=== PATIENT | male | born 1970 | race Caucasian/White ===

== ENCOUNTER 2018-04-26 15:38 | Emergency (ER) | payer OTHER, SELFPAY ==
[2018-04-26 15:39] VITALS: BP 146/100; PULSE 102; RESP 20; TEMP 36.6; O2SAT 96
--- NOTE | 2018-04-26 15:45 | DI.RAD_ITS ---
SYMPTOM/DIAGNOSIS: HAND TRAUMA LEFT HAND: There is soft tissue swelling around the distal phalanx of the middle finger. No fracture or foreign body is seen.
--- NOTE | 2018-04-26 16:41 | DI.VRAD_ITS ---
EXAM: XR Left Hand Complete, 3 or more Views EXAM DATE/TIME: 04/26/2018 3:47 PM CLINICAL HISTORY: 48 years old, male; Injury or trauma; Injury history: Snowblower; Initial encounter; Laceration; Hand; Left; Patient HX: Hand trauma; Distal middle finger trauma; Additional info: Snowblower trauma TECHNIQUE: XR Left hand 3 or more views. COMPARISON: No relevant prior studies available. FINDINGS: Bones/joints: Normal.There is no evidence of acute fracture. There is no evidence of acute fracture. Soft tissues: Soft tissue swelling of the long finger distally IMPRESSION: Soft tissue swelling of the long finger distally Dictated and Authenticated by: Rizwana Wetzel MD. Ordering:JAZ ROBLEDO MD
--- NOTE | 2018-04-26 17:33 | W.ED.GENAD ---
Discharge Plan Disposition Patient Disposition: HOME Condition: Stable Discharge Details Chief Complaint: Laceration Clinical Impression: Avulsion of fingertip, Fracture of distal phalanx of finger of right hand Primary Care Provider: Lisa Mayorga V ED Provider: Sarwat Aguirre Home Meds and New Rx's Prescriptions: New oxycodone-acetaminophen [Percocet] 5-325 mg tablet 1 tab PO Q6H PRN (Reason: pain) Qty: 10 RF: 0 cephalexin 500 mg capsule 500 mg PO QID Qty: 10 RF: 0 Continue fluticasone-salmeterol [Advair Diskus] 1 EACH blister with device 1 ea Inhalation PRNRF: 0 gabapentin [Neurontin] 600 MG tablet 600 mg PO TID RF: 0 montelukast [Singulair] 10 MG tablet PRNRF: 0 paroxetine HCl 40 MG tablet 40 mg PO DAILY RF: 0 prednisone 10 MG tablet 10 mg PO DAILY Qty: 16 RF: 0 Discharge Instructions Instructions: Finger Fracture (ED), Finger Amputation (ED) Additional Instructions: Keep wound dressing in place for the next 48 hours and then you may remove it and clean with mild soap and water. You should minimize use of your finger until sutures come out and please use foam metal splint. You may take [id number]-[id number] pain medication or use prescribe narcotic for breakthrough pain. If you notice any signs of infections such as purulent drainage, streaking redness, significant swelling or changing condition return immediately to the emergency department for reassessment Referrals: Dylan Chavez MD [ [facility] STAFF PHYSICIAN] - (Call the office tomorrow morning for arrangement of follow-up appointment preferably in the next 3 days) Discharge Data Discharge Date/Time-TO BE ENTERED AT DEPARTURE: 04/26/18 20:11 Medical Decision Making Patient caught finger in snowblower Auger approximately 20 minutes prior to arrival. Left middle finger distal laceration given concern for crush injury or open fracture radiological imaging was ordered. Prior to radiological imaging patient consented to digital block of the finger and 5 mL's of 2% lidocaine was injected with appropriate anesthetic effect achieved. Patient also given IV morphine given pain and other fingertips as well. Tdap was updated Review of radiological imaging shows distal phalanx fracture that is nondisplaced of the left ring finger but no other acute fractures noted. Of notation is the radiologist interpretation of no fractures but I do disagree as far as the ring finger is concerned. Patient consented to wound closure. Please see procedure note for closure which did require secondary injection of digital block due to return of sensation. Patient tolerated procedure well. Upon exploration of wound to base in bloodless field there was notation of exposed bone but otherwise tendon function was intact. 10 simple interrupted sutures with 4-0 Ethilon were used to approximate the wound edges which were well approximated after the procedure. After anesthesia wore off patient did have appropriate sensation and cap refill distal fingertip. Given depth and severity of wound I do feel that patient needs close follow-up. Patient placed upon follow-up list with orthopedics given severity of avulsion and possible need of revision if the tissue does not fully reattach. Patient placed up on Keflex for 3 days. patient given Percocet otherwise recommend to take [id number]-[id number] pain therapy as needed. Patient continued to have significant amount of discomfort after anesthesia wore off. Patient was given second dose of morphine which did not help so discussed with patient risk versus benefit of bupivacaine digital block. Patient agreed to this and on the radial aspect of the digit unilateral injection of 1 mL of 0.25% bupivacaine was injected. This was able to provide further anesthetic control. After discussion of diagnosis and plan of care patient is no further needs, questions, or concerns and states clear understanding to return to the emergency department for any worsening symptoms. HPI General Mode of arrival: ambulatory. Date/Time Provider Initiated Documentation: 04/26/18 15:44. Limitations to Documentation: no limitations. Information obtained by: patient and RN notes reviewed. History of Present Illness 48 year old M presents to the emergency department with the chief complaint of left middle finger injury- hand caught in snowblower, described as severe, with intensity rated at 10. Quality is described as sharp, and is localized to the left and upper extremity. Patient reports no radiation. Patient started experiencing this minute(s) (20) and it has been constant. No relieving factors improve symptom(s), No exacerbating factors reported . Patient notes no other symptoms.. Patient did receive the following treatments prior to arrival, none Related Data Home Medications Medication Instructions Recorded Confirmed fluticasone-salmeterol [Advair 1 ea INHALATION PRN 08/10/12 08/10/12 Diskus] gabapentin [Neurontin] 600 mg PO TID 08/10/12 08/10/12 montelukast [Singulair] PRN 10/16/12 10/16/12 paroxetine HCl 40 mg PO DAILY 10/16/12 10/16/12 prednisone 10 mg PO DAILY #16 tablet 10/16/12 cephalexin 500 mg PO QID #10 cap 04/26/18 oxycodone-acetaminophen [Percocet] 1 tab PO Q6H PRN #10 tab 04/26/18 Previous Rx's Medication Instructions Recorded prednisone 10 mg PO DAILY #16 tablet 10/16/12 cephalexin 500 mg PO QID #10 cap 04/26/18 oxycodone-acetaminophen [Percocet] 1 tab PO Q6H PRN #10 tab 04/26/18 Allergies Allergy/AdvReac Type Severity Reaction Status Date / Time ibuprofen Allergy Severe Other (See Unverified 04/26/18 18:05 Comment) ibuproxam Allergy Severe Unverified 04/26/18 18:05 General Stated Complaint: Laceration MERLE: 3 Review of Systems Cardiovascular Denies syncope and Denies lightheadedness Musculoskeletal Reports as per HPI and Denies numbness Integumentary/Breasts Reports as per HPI Neurologic Denies syncope and Denies numbness PFSH Social History Smoking/Tobacco Use Status: Current every day Exam Const General: cooperative and no acute distress Orientation: alert, awake and oriented x3 Limitations: mental status not altered Resp Effort & Inspection: normal respiratory effort and able to speak in complete sentences Cardio Rate: regular rate Rhythm: regular rhythm Neuro General: alert, awake, oriented x3, gait normal, tone normal, moves all extremities, normal light touch, pain and propioception and no focal motor deficits Motor: no movement abnormalities noted Sensory Exam: no sensory deficits noted Extrem Left upper extremity: hand Details: normal capillary refill, neuromotor exam normal, neurosensory exam normal, tendon exam normal, tenderness Location: of the 3rd digit Location: at the distal phalanx and of the 4th digit Location: at the distal phalanx, normal ROM of fingers and laceration (Middle finger distal partial avulsion) Course Vital Signs Temperature 36.6 C 04/26/18 15:39 Pulse 102 H 04/26/18 15:39 Respiratory Rate 20 04/26/18 15:39 Blood Pressure 146/100 H 04/26/18 15:39 Pulse Oximetry 96 11/25/18 15:39 Temperature 36.6 C 04/26/18 15:39 Temperature Source Temporal Artery Scan 04/26/18 15:39 Pulse 102 H 04/26/18 15:39 Respiratory Rate 20 04/26/18 15:39 Respiratory Effort 04/26/18 16:10 Blood Pressure 146/100 H 04/26/18 15:39 Blood Pressure Position Sitting 04/26/18 15:39 Pulse Oximetry 96 04/26/18 15:39 Oxygen Delivery Method Room Air 04/26/18 15:39 Oxygen Flow Rate 0 04/26/18 15:39 Pain Level 10 04/26/18 15:39 Procedures Laceration Laceration 1: Site: hand (middle finger) Side (If applicable): left Description: linear Depth: [id number] (exposed bone) Local Anesthetic: Lidocaine 1% (digital block) Amount of anesthesia used (mL): 5 Pre-repair: wound explored, irrigated extensively and deep structures intact Skin layer closed with: nylon Size (cm): 4-0 Number of sutures: 10 Technique: simple, interrupted
--- NOTE | 2018-04-26 17:37 | ED.GENADUL_ITS ---
Discharge Plan Disposition Patient Disposition: HOME Condition: Stable Discharge Details Chief Complaint: Laceration Clinical Impression: Avulsion of fingertip, Fracture of distal phalanx of finger of right hand Primary Care Provider: Lisa Mayorga V ED Provider: Sarwat Aguirre Home Meds and New Rx's Prescriptions: New oxycodone-acetaminophen [Percocet] 5-325 mg tablet 1 tab PO Q6H PRN (Reason: pain) Qty: 10 RF: 0 cephalexin 500 mg capsule 500 mg PO QID Qty: 10 RF: 0 Continue fluticasone-salmeterol [Advair Diskus] 1 EACH blister with device 1 ea Inhalation PRNRF: 0 gabapentin [Neurontin] 600 MG tablet 600 mg PO TID RF: 0 montelukast [Singulair] 10 MG tablet PRNRF: 0 paroxetine HCl 40 MG tablet 40 mg PO DAILY RF: 0 prednisone 10 MG tablet 10 mg PO DAILY Qty: 16 RF: 0 Discharge Instructions Instructions: Finger Fracture (ED), Finger Amputation (ED) Additional Instructions: Keep wound dressing in place for the next 48 hours and then you may remove it and clean with mild soap and water. You should minimize use of your finger until sutures come out and please use foam metal splint. You may take over-the- counter pain medication or use prescribe narcotic for breakthrough pain. If you notice any signs of infections such as purulent drainage, streaking redness , significant swelling or changing condition return immediately to the emergency department for reassessment Referrals: Dylan Chavez MD [ [facility] STAFF PHYSICIAN] - (Call the office tomorrow morning for arrangement of follow-up appointment preferably in the next 3 days) Discharge Data Discharge Date/Time-TO BE ENTERED AT DEPARTURE: 04/26/18 20:11 Medical Decision Making Patient caught finger in snowblower Auger approximately 20 minutes prior to arrival. Left middle finger distal laceration given concern for crush injury or open fracture radiological imaging was ordered. Prior to radiological imaging patient consented to digital block of the finger and 5 mL's of 2% lidocaine was injected with appropriate anesthetic effect achieved. Patient also given IV morphine given pain and other fingertips as well. Tdap was updated Review of radiological imaging shows distal phalanx fracture that is nondisplaced of the left ring finger but no other acute fractures noted. Of notation is the radiologist interpretation of no fractures but I do disagree as far as the ring finger is concerned. Patient consented to wound closure. Please see procedure note for closure which did require secondary injection of digital block due to return of sensation. Patient tolerated procedure well. Upon exploration of wound to base in bloodless field there was notation of exposed bone but otherwise tendon function was intact. 10 simple interrupted sutures with 4-0 Ethilon were used to approximate the wound edges which were well approximated after the procedure. After anesthesia wore off patient did have appropriate sensation and cap refill distal fingertip. Given depth and severity of wound I do feel that patient needs close follow-up. Patient placed upon follow-up list with orthopedics given severity of avulsion and possible need of revision if the tissue does not fully reattach. Patient placed up on Keflex for 3 days. patient given Percocet otherwise recommend to take [id number] pain therapy as needed. Patient continued to have significant amount of discomfort after anesthesia wore off. Patient was given second dose of morphine which did not help so discussed with patient risk versus benefit of bupivacaine digital block. Patient agreed to this and on the radial aspect of the digit unilateral injection of 1 mL of 0.25% bupivacaine was injected. This was able to provide further anesthetic control. After discussion of diagnosis and plan of care patient is no further needs, questions, or concerns and states clear understanding to return to the emergency department for any worsening symptoms. HPI General Mode of arrival: ambulatory . Date/Time Provider Initiated Documentation: 04/26/18 15:44 . Limitations to Documentation: no limitations . Information obtained by: patient and RN notes reviewed . History of Present Illness 48 year old M presents to the emergency department with the chief complaint of left middle finger injury- hand caught in snowblower, described as severe, with intensity rated at 10. Quality is described as sharp, and is localized to the left and upper extremity. Patient reports no radiation. Patient started experiencing this minute(s) (20) and it has been constant. No relieving factors improve symptom(s), No exacerbating factors reported . Patient notes no other symptoms.. Patient did receive the following treatments prior to arrival, none Related Data Home Medications Medication Instructions Recorded Confirmed fluticasone-salmeterol [Advair 1 ea INHALATION PRN 08/10/12 08/10/12 Diskus] gabapentin [Neurontin] 600 mg PO TID 08/10/12 08/10/12 montelukast [Singulair] PRN 10/16/12 10/16/12 paroxetine HCl 40 mg PO DAILY 10/16/12 10/16/12 prednisone 10 mg PO DAILY #16 tablet 10/16/12 cephalexin 500 mg PO QID #10 cap 04/26/18 oxycodone-acetaminophen [Percocet] 1 tab PO Q6H PRN #10 tab 04/26/18 Previous Rx's Medication Instructions Recorded prednisone 10 mg PO DAILY #16 tablet 10/16/12 cephalexin 500 mg PO QID #10 cap 04/26/18 oxycodone-acetaminophen [Percocet] 1 tab PO Q6H PRN #10 tab 04/26/18 Allergies Allergy/AdvReac Type Severity Reaction Status Date / Time ibuprofen Allergy Severe Other (See Unverified 04/26/18 18:05 Comment) ibuproxam Allergy Severe Unverified 04/26/18 18:05 General Stated Complaint: Laceration MERLE: 3 Review of Systems Cardiovascular Denies syncope and Denies lightheadedness Musculoskeletal Reports as per HPI and Denies numbness Integumentary/Breasts Reports as per HPI Neurologic Denies syncope and Denies numbness PFSH Social History Smoking/Tobacco Use Status: Current every day Exam Const General: cooperative and no acute distress Orientation: alert, awake and oriented x3 Limitations: mental status not altered Resp Effort & Inspection: normal respiratory effort and able to speak in complete sentences Cardio Rate: regular rate Rhythm: regular rhythm Neuro General: alert, awake, oriented x3, gait normal, tone normal, moves all extremities, normal light touch, pain and propioception and no focal motor deficits Motor: no movement abnormalities noted Sensory Exam: no sensory deficits noted Extrem Left upper extremity: hand Details: normal capillary refill, neuromotor exam normal, neurosensory exam normal, tendon exam normal, tenderness Location: of the 3rd digit Location: at the distal phalanx and of the 4th digit Location: at the distal phalanx, normal ROM of fingers and laceration (Middle finger distal partial avulsion) Course Vital Signs Temperature 36.6 C 04/26/18 15:39 Pulse 102 H 04/26/18 15:39 Respiratory Rate 20 04/26/18 15:39 Blood Pressure 146/100 H 04/26/18 15:39 Pulse Oximetry 96 11/25/18 15:39 Temperature 36.6 C 04/26/18 15:39 Temperature Source Temporal Artery Scan 04/26/18 15:39 Pulse 102 H 04/26/18 15:39 Respiratory Rate 20 04/26/18 15:39 Respiratory Effort 04/26/18 16:10 Blood Pressure 146/100 H 04/26/18 15:39 Blood Pressure Position Sitting 04/26/18 15:39 Pulse Oximetry 96 04/26/18 15:39 Oxygen Delivery Method Room Air 04/26/18 15:39 Oxygen Flow Rate 0 04/26/18 15:39 Pain Level 10 04/26/18 15:39 Procedures Laceration Laceration 1: Site: hand (middle finger) Side (If applicable): left Description: linear Depth: [id number]-[id number]-mdurean (exposed bone) Local Anesthetic: Lidocaine 1% (digital block) Amount of anesthesia used (mL): 5 Pre-repair: wound explored, irrigated extensively and deep structures intact Skin layer closed with: nylon Size (cm): 4-0 Number of sutures: 10 Technique: simple, interrupted
[2018-04-26 17:49] VITALS: BP 152/91; PULSE 81; RESP 16; O2SAT 100
[2018-04-26] MEDS: MORPHine 10 MG/ML VIAL 6 MG IM (17:58)
[2018-04-26] MEDS: Cephalexin 500 MG CAP 1500 MG PO (18:01)
[2018-04-26] MEDS: oxyCODONE 5 mg/Acetaminophen 325 mg TAB 3 TAB PO (18:02)
--- NOTE | 2018-04-26 18:07 | NUR.NOTE ---
Pt. given IM Morphine for significant pain, plan to monitor prior to discharge.
[2018-04-26] MEDS: HYDROmorphone 2 MG/ML VIAL 0.5 MG IVP (18:40)
--- NOTE | 2018-04-26 19:24 | NUR.NOTE ---
Late entry - pain is not controlled with 6mg IM morphine, pt. continues to cry and shake. IV re-placed as ordered, initial IV had been d/rahul by this RN. .5 mg IV dilaudid administered as ordered. Pt. is still trembling, NIA Aguirre aware and is re-evaluating.
[2018-04-26 20:13] VITALS: BP 152/91; PULSE 81; RESP 16; TEMP 36.6; O2SAT 100
== END 2018-04-26 20:11 | disposition home or self-care (01) ==
PROVIDERS: Emergency Provider Nurse Practitioner Family; PCP Family Medicine
DX: S62.665A Nondisplaced fracture of distal phalanx of left ring finger, initial encounter for closed fracture (principal); S61.213A Laceration without foreign body of left middle finger without damage to nail, initial encounter; W31.89XA Contact with other specified machinery, initial encounter
CPT/HCPCS: 12001; 26750; 90471; 96372; 96374; 96375; 73130; J2270

== ENCOUNTER → 2018-04-30 09:14 | Outpatient (BNVA) | payer OTHER, SELFPAY | PROVIDERS: PCP Family Medicine; Referring Provider Family Medicine; Visit Provider Orthopaedic Surgery | DX: S61.213A Laceration without foreign body of left middle finger without damage to nail, initial encounter (principal); S62.665B Nondisplaced fracture of distal phalanx of left ring finger, initial encounter for open fracture; W29.3XXA Contact with powered garden and outdoor hand tools and machinery, initial encounter | CPT/HCPCS: 99201; 99214 ==

== ENCOUNTER → 2018-05-12 08:49 | Outpatient (BNVA) | payer OTHER, SELFPAY | PROVIDERS: PCP Family Medicine; Referring Provider Family Medicine; Visit Provider Orthopaedic Surgery | DX: S62.639D Displaced fracture of distal phalanx of unspecified finger, subsequent encounter for fracture with routine healing (principal); S61.219D Laceration without foreign body of unspecified finger without damage to nail, subsequent encounter; W29.3XXD Contact with powered garden and outdoor hand tools and machinery, subsequent encounter | CPT/HCPCS: 99212; 99213 ==

== ENCOUNTER → 2018-05-19 08:59 | Outpatient (BNVA) | payer OTHER, SELFPAY | PROVIDERS: PCP Family Medicine; Referring Provider Family Medicine; Visit Provider Orthopaedic Surgery | DX: S61.213D Laceration without foreign body of left middle finger without damage to nail, subsequent encounter (principal); W29.3XXD Contact with powered garden and outdoor hand tools and machinery, subsequent encounter | CPT/HCPCS: 99211; 99213 ==

== ENCOUNTER 2018-08-06 18:11 | Outpatient (REF) | payer OTHER, SELFPAY | END 2018-08-06 18:31 | LOC: NCHCN 18:11 | PROVIDERS: PCP Family Medicine; Visit Provider Nurse Practitioner Family | DX: L08.9 Local infection of the skin and subcutaneous tissue, unspecified (principal); S81.801A Unspecified open wound, right lower leg, initial encounter | CPT/HCPCS: 87077; 87070; 87186; 87205 ==

== ENCOUNTER → 2022-05-07 07:29 | Outpatient (BNVA) | payer MEDICARE, SELFPAY | PROVIDERS: PCP Family Medicine; Referring Provider Family Medicine; Visit Provider Surgery | DX: K40.90 Unilateral inguinal hernia, without obstruction or gangrene, not specified as recurrent (principal); Z98.890 Other specified postprocedural states | CPT/HCPCS: 99203 ==

== ENCOUNTER 2022-06-07 07:20 | Day surgery (SDC) | payer MEDICARE, SELFPAY ==
--- NOTE | 2022-06-06 20:22 | PDOC.DSDIS_ITS ---
Date of service: 06/07/22 Time of Service: 11:52 Discharge Plan Disposition Patient Disposition: Home Condition: Good Discharge Details Reason For Visit: Bilateral inguinal hernia repair Attending Provider: Mauricio Langford Primary Care Provider: Lisa Mayorga V Home Meds and New Rx's Prescriptions: New oxycodone 5 mg tablet 5 mg PO Q8H PRN (Reason: pain) Qty: 12 0RF Rx Instructions: Take 1 tablet by mouth up to every 8 hours if needed for severe pain. Do not drive while taking this medication. Be careful as this medication can be ad dictive. Continued potassium chloride 20 mEq tablet extended release 20 meq PO DAILY magnesium carb,citrate,oxide 300 mg magnesium tablet 300 mg PO DAILY vitamin B complex Capsule 1 cap PO DAILY triamcinolone acetonide 0.5 % cream 1 applic topical BID omega 0-cyg-vdf-fish oil [Fish Oil] 300-1,000 mg capsule 1 cap PO DAILY coenzyme Q10 [Co Q-10] 100 mg capsule 100 mg PO DAILY cholecalciferol (vitamin D3) 25 mcg (1,000 unit) capsule 25 mcg PO DAILY fluticasone propion-salmeterol [Advair Diskus] 1 EACH blister with device 1 ea Inhalation DAILY albuterol sulfate 90 mcg/actuation HFA aerosol inhaler 2 inh INHALATION TID Label Comments: INHALE 2 PUFFS BY MOUTH EVERY 4 HOURS NEEDED Discharge Instructions Instructions: Inguinal Hernia Repair (GEN) Additional Instructions: 1. Resume all of your medications. 2. Okay to use tylenol and ibuprofen over the counter as needed. Use oxycodone as needed for severe pain. 3. Okay to use ice paks or heating pads over the surgical sites for your comfort. 4. Leave bandage in place for 24 hours, then remove. 5. Shower with warm soapy water. Pat dry. Use a bandaid if needed to protect your clothing. 6. No soaking or tub baths until I see you in the office. 7. No heavy lifting until I see you in the office. You should be up and walking around every day. 8. Call the office (or go directly to the emergency room after hours) if you notice any of the following: Develop chills (warm to touch), or if you have a thermometer and your temperature is above 101 Difficulty breathing or difficultly swallowing Persistent vomiting Any bleeding ? exceeding one tablespoon 9. Call your physician if the site where your intravenous was started becomes red, swollen, painful, and warm to touch. Referrals: Mauricio Langford MD [ [facility] STAFF PHYSICIAN] - Activity:: no heavy lifting Remove Dressings/Wound Care:: 24 hours Shower/Bathe:: 24 hours Diet:: As Tolerated Discharge Orders Discharge Orders: Discharge Order (Routine); Ordered 06/06/22 Ordered By: Mauricio Langford DS: Diagnosis Discharge Diagnosis (1) Bilateral inguinal hernia: Status: Acute Asessment and Plan: We were able to fix both hernias today with permanent implantable meshes. The o peration went very nicely. Please follow the instructions attached here, and we look forward to seeing you in the office for routine follow-up.
--- NOTE | 2022-06-06 20:25 | ROE_ITS ---
Date of service: 06/07/22 Time of Service: 11:56 Operative Note Operative Note DATE OF PROCEDURE: 06/07/22 PRE-OP DIAGNOSIS: Bilateral inguinal hernias POST-OP DIAGNOSIS: same PROCEDURE: Bilateral inguinal hernia repair with mesh plug and patch SURGEON: Mauricio Langford VICE PRESIDENT OF CONSULTING SERVICES: Ilana Mock ANESTHESIA TYPE: Local By Surgeon, General LMA/ETT and Other (Bilateral tap blocks) Refer to Anesthesia Record ESTIMATED BLOOD LOSS: 30 COMPLICATIONS: None Patient was transported to: PACU Patient's condition: stable Implants: Bard mesh patch and plugs Indications: Mic is a 52-year-old male with an increasingly symptomatic left-sided inguinal hernia. On physical exam, he has a right-sided inguinal hernia as well. Findings: Right-sided direct and indirect inguinal hernia, left-sided indirect inguinal hernia Procedure Description: After induction of general anesthesia, the anesthesia specialist performed bilateral ultrasound-guided tap blocks. The surgical site was then prepped and draped in the usual fashion. I began by making an oblique incision over the right inguinal region. I dissected down through the skin to the deep fascia. Next, I incised the fascia along the length of the inguinal canal to the external ring. I then carefully identified the ilioinguinal nerve and dissected off the cord structures. Once this was complete, I bluntly dissected the shelving edge of the inguinal ligament down towards the pubic tubercle. Here, I encircled all cord structures with a Bayard drain. Next, I began dissecting the specific cord structures. Great care was taken to spare the vas deferens and the blood supply to the testicle. Next, I isolated the hernia sac from the other inguinal structures. I reduced it back to its normal anatomic position. Additionally, there was a modest direct inguinal hernia as well. This was easily reducible. I then used a large mesh plug to obliterate the defect at the internal ring. I fixed in place with interrupted Prolene stitches. Next, I bu ttressed the posterior floor of the inguinal canal with a large mesh patch. I started by fixing it to the pubic tubercle. Next, I used Prolene sutures to affix it to the shelving edge of the inguinal ligament and the conjoined tendon. Laterally I tacked it to the transversalis fascia and reconstructed an internal ring without any strain on the cord structures. Once this was complete, I irrigated the surgical field. It appeared hemostatic. I then closed the anterior portion of the fascia to reconstruct the front wall of the inguinal canal. I did this with interrupted Vicryl stitches. Once again, I irrigated the surgical field and inspected for hemostasis. Finally, I approximated the superficial fascia and the deep layers of the skin with absorbable suture. Skin was closed with running Monocryl suture. The right side was then covered, and I turned my attention to the left groin. I made an oblique incision over the left groin region. I dissected down through the skin to the deep fascia. Next, I incised the fascia along the length of the inguinal canal to the external ring. I then carefully identified the ilioinguinal nerve and it from the cord structures. Once this was complete, similar to the right side, I bluntly dissected the shelving edge of the inguinal ligament down towards the pubic tubercle. Here, I encircled all cord structures with a Bayard drain. Next, I began dissecting the specific cord structures. Great care was taken to spare the vas deferens and the blood supply to the testicle. Next, I isolated the hernia sac from the other inguinal structures. I reduced it back to its normal anatomic position. I then used a large mesh plug to plug the internal ring. I fixed in place with interrupted Prolene stitches. There was a small amount of bleeding from the external oblique muscle laterally, this was easily controlled with an interrupted Vicryl suture. Next, I buttressed the posterior floor of the inguinal canal with a large mesh patch. I started by fixing it to the pubic tubercle. Similar to the right side, I used Prolene sutures to affix it to the shelving edge of the inguinal ligament and the conjoined tendon. Laterally I tacked it to the transversalis fascia and reconstructed an internal ring without any strain on the cord structures. Once this was complete, I irrigated the surgical field. It appeared hemostatic. I then closed the anterior portion of the fascia to reconstruct the front wall of the inguinal canal. I did this with interrupted Vicryl stitches. Once again, I irrigated the surgical field and inspected for hemostasis. Finally, I approximated the superficial fascia and the deep layers of the skin with absorbable suture. Skin was closed with running subcuticular stitches. Bandages were applied to both sides, and the patient was awakened and transferred to the recovery unit.
[2022-06-07] VITALS (15 sets, daily range): BP systolic 113–169; BP diastolic 73–110; PULSE 55–78; RESP 9–19; TEMP 36.5–36.6; O2SAT 92–100; BMI 27.8
[2022-06-07] MEDS: Lactated Ringers 1,000 ML 80 ML IV (08:08)
[2022-06-07] MEDS: Acetaminophen 500 MG TAB 1000 MG PO (08:31)
[2022-06-07] MEDS: Gabapentin 300 MG CAP 600 MG PO (08:31)
--- NOTE | 2022-06-07 09:24 | HPE_ITS ---
Assessment and Plan Assessment and plan (1) Bilateral inguinal hernia: Status: Acute Assessment and plan: Bilateral open inguinal hernia repairs today. History of Present Illness History of Present Illness Chief Complaint: Left groin pain Narrative: Mic is a 52-year-old male with a complicated medical history most significant for ulcerative colitis requiring colectomy with end ileostomy. Recently, he experienced some discomfort in his left lower quadrant. He was seen by his primary care physician and found to have a left-sided inguinal hernia. On exam, he is found to actually have bilateral inguinal hernias. [facility] All Active Problems (Updated 06/07/22 @ 09:26 by Mauricio Langford MD) Bilateral inguinal hernia (Acute) Laceration of finger of left hand (Acute) Laceration volar fingertip left middle finger Date of injury: 04/26/18 Fracture of distal phalanx of finger of left hand (Acute) Asymptomatic fracture of the distal phalanx of the left ring finger Date of injury: 04/26/[address] (Acute) Psoriasis (Chronic) Depression with anxiety (Acute) Hypertension (Chronic) Chronic recurrent pilonidal cyst (Acute) Ulcerative colitis (Chronic) Asthma, moderate persistent (Acute) Degenerative joint disease (DJD) of lumbar spine (Acute) Bronchitis, obstructive, chronic (Acute) Environmental allergies (Acute) Hypogonadism, male (Acute) Bilateral inguinal hernia (Acute) Medical History A-fib Former smoker Hyperlipidemia PTSD (post-traumatic stress disorder) SVT (supraventricular tachycardia) Ulcerative proctitis Surgical History H/O cardiac radiofrequency ablation H/O hernia repair (~01/2020) [facility] around ileostomy H/O total colectomy History of back surgery 2 rods, 4 screws, L4-5 2006 [place], [place] Social History Smoking/Tobacco Use Status: Former Tobacco Use Quit Date: 06/02/06 Smoking risk assessment performed?: Yes Alcohol Intake: former Drug use: Never Substance use type: does not use Do you feel safe at home: Yes Do you feel safe in your relationship?: Yes Additional Social history: unable to assess privately-06/07/22 Meds Allergies and Home Medications Allergies Allergy/AdvReac Type Severity Reaction Status Date / Time bupropion [From Wellbutrin] Allergy Severe suicidal Verified 06/07/22 08:22 thoughts ibuprofen Allergy Severe tongue Verified 06/07/22 08:22 swelling ibuproxam Allergy Severe Verified 06/07/22 08:22 zolpidem [From Ambien] Allergy Severe sleep Verified 06/07/22 08:22 walk/drive atenolol Allergy Unknown Verified 06/07/22 08:22 Home Medications Medication Instructions Recorded Confirmed Type fluticasone 250 mcg-salmeterol 50 1 ea inhalation DAILY 08/10/12 06/07/22 History mcg/dose blistr powdr for inhalation (Advair Diskus) cholecalciferol (vitamin D3) 25 25 mcg PO DAILY 04/29/22 06/07/22 History mcg (1,000 unit) capsule coenzyme Q10 100 mg capsule (Co 100 mg PO DAILY 04/29/22 06/07/22 History Q-10) magnesium carb,citrate,oxide 300 mg PO DAILY 04/29/22 06/07/22 History omega 9-jui-wjm-fish oil 300 1 cap PO DAILY 04/29/22 06/07/22 History mg-1,000 mg capsule (Fish Oil) triamcinolone acetonide 0.5 % 1 applic topical BID 04/29/22 06/07/22 History topical cream vitamin B complex 1 cap PO DAILY 04/29/22 06/07/22 History potassium chloride 20 mEq 20 meq PO DAILY 05/07/22 06/07/22 History tablet,extended release albuterol sulfate 90 mcg/actuation 2 inh inhalation TID 06/05/22 06/07/22 History aerosol inhaler Exam Const General: cooperative, healthy appearing and comfortable Orientation: awake and oriented x3 Eyes General: appearance normal, both eyes and all related structures Conjunctivae: conjunctivae normal Sclera: sclerae normal Resp Effort & Inspection: normal respiratory effort and able to speak in complete sentences Cardio Jugular venous pressure: no JVD Rate: regular rate Rhythm: regular rhythm Heart Sounds: S1 normal and S2 normal GI Inspection: non-distended Palpation: soft, no guarding, hernia (Bilateral inguinal reducible) and nontender Auscultation: normal bowel sounds Skin General skin exam: normal turgor Neuro General: patient alert, patient awake and patient oriented x3 Cognition: normal cognition Extrem Right lower extremity: no edema Left lower extremity: no edema Results Last Vital Signs Temp 97.9 F 06/07/22 07:26 Pulse 64 06/07/22 07:26 Resp 18 06/07/22 07:26 BP 123/95 H 06/07/22 07:26 Pulse Ox 96 06/07/22 07:26
--- NOTE | 2022-06-07 09:46 | W.ANESPRE ---
General Info Date of Service Date Performed: 06/07/22 Height: 5 ft 8 in Weight: 83 kg Body Mass Index (BMI): 27.8 Surgical Procedure: Operation Date: 06/07/22 09:25 Proposed Procedure Side Surgeon p Herniorrhaphy Inguinal w/Mesh Bilateral Mauricio Langford MD Meds Allergies and Home Medications Allergies Allergy/AdvReac Type Severity Reaction Status Date / Time bupropion [From Wellbutrin] Allergy Severe suicidal Verified 06/07/22 08:22 thoughts ibuprofen Allergy Severe tongue Verified 06/07/22 08:22 swelling ibuproxam Allergy Severe Verified 06/07/22 08:22 zolpidem [From Ambien] Allergy Severe sleep Verified 06/07/22 08:22 walk/drive atenolol Allergy Unknown Verified 06/07/22 08:22 Home Medication Medication Instructions Recorded fluticasone 250 mcg-salmeterol 50 1 ea inhalation DAILY 08/10/12 mcg/dose blistr powdr for inhalation (Advair Diskus) cholecalciferol (vitamin D3) 25 25 mcg PO DAILY 04/29/22 mcg (1,000 unit) capsule coenzyme Q10 100 mg capsule (Co 100 mg PO DAILY 04/29/22 Q-10) magnesium carb,citrate,oxide 300 mg PO DAILY 04/29/22 omega 6-fhg-wlh-fish oil 300 1 cap PO DAILY 04/29/22 mg-1,000 mg capsule (Fish Oil) triamcinolone acetonide 0.5 % 1 applic topical BID 04/29/22 topical cream vitamin B complex 1 cap PO DAILY 04/29/22 potassium chloride 20 mEq 20 meq PO DAILY 05/07/22 tablet,extended release albuterol sulfate 90 mcg/actuation 2 inh inhalation TID 06/05/22 aerosol inhaler Current Visit Medications: Current Medications Generic Name Dose Route Start Last Admin Trade Name Freq PRN Reason Stop Dose Admin Acetaminophen 1,000 mg 06/07/22 06:00 06/07/22 08:31 Acetaminophen 500 Mg Tab PO 07/06/22 23:59 1,000 mg PREOP CHRISTIANO Administration Gabapentin 600 mg 06/07/22 06:00 06/07/22 08:31 Gabapentin 300 Mg Cap PO 07/06/22 23:59 600 mg PREOP CHRISTIANO Administration Hydromorphone HCl 0.5 mg 06/06/22 20:28 Hydromorphone 2 Mg/Ml Syr IVP Q1H PRN PRN Ringer's Solution 1,000 mls @ 80 mls/hr 06/07/22 06:00 06/07/22 08:08 IV 07/06/22 23:59 80 mls/hr INFUSION CHRISTIANO Administration Cefazolin Sodium/Dextrose 2 gm in 50 mls @ 100 mls/hr 06/07/22 06:00 Ancef Duplex IVPB 07/06/22 23:59 PREOP CHRISTIANO IV Miscellaneous Supplies 1 each 06/07/22 06:00 Iv Access IV 07/06/22 23:59 DIRECTED CHRISTIANO Sodium Chloride 0 ml 06/07/22 06:00 Normal Saline Flush 10 Ml Syr IV 07/06/22 23:59 PRN PRN Sodium Chloride 0 ml 06/07/22 06:00 Normal Saline 10 Ml Vial IJ 07/06/22 23:59 DIRECTED PRN Sterile Water 0 ml 06/07/22 06:00 Water,Injection,Sterile 10 Ml Vial IJ 07/06/22 23:59 DIRECTED PRN Tramadol HCl 100 mg 06/06/22 20:28 Tramadol 50 Mg Tab PO Q6H PRN PRN Pain PFSH Active Problems Active Problems: Problem Status Onset Code Bilateral inguinal hernia K40.20 Laceration of finger of left hand S61.219A Fracture of distal phalanx of finger of left hand S62.639A Ileostomy in place Z93.2 Psoriasis L40.9 Depression with anxiety F41.8 Hypertension I10 Chronic recurrent pilonidal cyst L05.91 Ulcerative colitis K51.90 Asthma, moderate persistent J45.40 Degenerative joint disease (DJD) of lumbar spine M47.816 Bronchitis, obstructive, chronic J44.9 Environmental allergies Z91.09 Hypogonadism, male E29.1 Bilateral inguinal hernia K40.20 Medical History Medical History A-fib Former smoker Hyperlipidemia PTSD (post-traumatic stress disorder) SVT (supraventricular tachycardia) Ulcerative proctitis Surgical History Surgical History H/O cardiac radiofrequency ablation H/O hernia repair (~01/2020) [facility] around ileostomy H/O total colectomy History of back surgery 2 rods, 4 screws, L4-5 2006 [place], [place] Tobacco Smoking/Tobacco Use Status: Former Tobacco Use Alcohol Alcohol Intake: former Substance Use Substance use: Never Substance use type: does not use Vital Signs and Lab Results Vital Signs Most Recent Vital Signs in EMR: Most Recent Vital Signs Temp Pulse Resp BP Pulse Ox 36.6 C 64 18 123/95 H 96 06/07/22 07:26 06/07/22 07:26 06/07/22 07:26 06/07/22 07:26 06/07/22 07:26 Lab Results Blood Type / Crossmatch: No Data to Display Complete Blood Count: No Data to Display Complete Metabolic Panel: No Data to Display Liver Function Panel: No Data to Display Coagulation Panel: No Data to Display Cardiac Panel: No Data to Display Arterial Blood Gas: No Data to Display Venous Blood Gas: No Data to Display Pancreas Panel: No Data to Display Thyroid Panel: No Data to Display Infectious Disease: No Data to Display Blood Cultures: No Data to Display Toxicology Panel: No Data to Display Anesthesia Assessment and Plan Anesthesia History Personal History: No History of Anesthesia Complications Family History: No Family History of Anesthesia Complications Exercise Tolerance Exercise Tolerance: Metabolic Equivalents>4 Pertinent Negatives Pertinent Negatives: No Symptoms of GERD Cardiac & Pulmonary Exam Cardiac Exam: Normal S1/S2 Heart Sounds Pulmonary Exam: Clear Bilateral Breath Sounds Implantable Cardiac Device Does patient have a Pacemaker or an ICD?: No Airway Exam Known Difficult Airway: No Mallampati Class: 2 Mouth Opening: Normal (> 3cm) Thyromental Distance: Greater than 3 cm Neck Range of Motion: Full ROM Neck Circumference: Normal Teeth Condition: Generalized Poor Dentition ASA Classification ASA Score: ASA 2 Emergency Case?: No NPO Status NPO Status: NPO Clears >2 hours, Solids >8 hours Anesthesia Plan Resuscitation Status: Full Code Anesthesia Technique: General Anesthesia Airway Planned: LMA Pain Management: Surgeon and patient request nerve block Monitors Used: Standard Monitors
[2022-06-07] MEDS: ceFAZolin 2 GM/50 ML BAG IVPB (10:05)
--- NOTE | 2022-06-07 10:41 | W.ANESNERVE ---
Nerve Block Single Injection Procedure Date and Time Date Performed: 06/07/22 Procedure Start: 10:10 Location Where Procedure Performed Procedure Location: Operating Room Procedure Stop: 10:20 Reason Performed: Postoperative Analgesia Requesting Provider: Mauricio Langford Timeout Performed Timeout Performed: Yes Monitoring Used ECG, Blood Pressure, SpO2, ETCO2 and See EMR for corresponding vital signs Sterility Sterility: Hand Hygiene, Surgical Cap, Surgical Mask, Sterile Gloves and Chlorhexidine Sedation Given During Procedure Sedation Given (Indicate Dose Given): No Sedation given Patient Mental Status Patient Mental Status: Performed under general anesthesia Nerve Block 1st Nerve Block: Laterality: Bilateral Block Type: TAP Bilateral Ultrasound Image Saved?: Yes Needle / Catheter Used: 100mm SonoPlex II Local Anesthetic Bolus (Indicate Dose Given): None, Half of Total block solution given into each side and Bupivacaine 0.25% Dose:: 50 ml 25 ml each side Additives (Indicate Dose Given): None Ultrasound: Sterile probe cover and gel used Nerve Stimulator: Not Used Paresthesia: None Procedure Tolerated: No Complications Procedure Outcome: Successful Performed By: Eliseo Castro Other (not listed above): Matthew
[2022-06-07] MEDS: Bupivacaine 0.5% Pres-Free W/EPI 30 ML VIAL (11:40)
[2022-06-07] MEDS: fentaNYL 100 MCG/2 ML VIAL IVP ×2 (12:27→12:40)
[2022-06-07] MEDS: HYDROmorphone 2 MG/ML SYR IVP ×2 (13:07→13:17)
[2022-06-07] MEDS: traMADol 50 MG TAB 100 MG PO (13:20)
--- NOTE | 2022-06-07 14:20 | W.ANESPOSTOP ---
Postoperative Evaluation Date, Time and Location Date Performed: 06/07/22 Time Performed: 14:21 Patient Location: Day Surgery Unit Vital Signs Most Recent Imported Vital Signs: Most Recent Vital Signs Temp Pulse Resp BP Pulse Ox 36.6 C 71 16 169/109 H 98 06/07/22 14:05 06/07/22 14:05 06/07/22 14:05 06/07/22 14:14 06/07/22 14:05 Pain Score Most Recent Pain Score: Most Recent Pain Score Pain Level 6 06/07/22 13:36 Assessment Mental Status: Awake (Alert & Oriented to Patient Baseline) Airway and Respiratory Function: Patent airway with normal (patient baseline) respiratory exam Cardiovascular Function: Hemodynamically Stable (Diastolic high. Will encourage urinating) Hydration Status: Adequately Hydrated Nausea & Vomiting: No Nausea or Vomiting Pain: Pain is tolerable per patient Peripheral Nerve Block: Regional nerve block not resolved at time of post operative discharge
[2022-06-07] MEDS: oxyCODONE 5 MG TAB PO (15:42)
== END 2022-06-07 16:30 | disposition home or self-care (01) ==
PROVIDERS: PCP Family Medicine; Visit Provider Surgery
PROC: (CPT 49505; principal; 2022-06-07 09:15)
DX: K40.20 Bilateral inguinal hernia, without obstruction or gangrene, not specified as recurrent (principal); I48.91 Unspecified atrial fibrillation
CPT/HCPCS: 49505; 76942; C1781; J0690; J2405; J2704; J3010

== ENCOUNTER → 2022-06-19 09:28 | Outpatient (BNVA) | payer MEDICARE, SELFPAY | PROVIDERS: PCP Family Medicine; Referring Provider Family Medicine; Visit Provider Surgery | DX: Z48.817 Encounter for surgical aftercare following surgery on the skin and subcutaneous tissue (principal); K40.20 Bilateral inguinal hernia, without obstruction or gangrene, not specified as recurrent ==

== ENCOUNTER 2022-08-07 21:46 | Emergency (ER) | payer MEDICARE, SELFPAY ==
[2022-08-07] VITALS (20 sets, daily range): BP systolic 129–169; BP diastolic 81–119; PULSE 75–98; RESP 7–22; TEMP 36.1; O2SAT 94–98
--- NOTE | 2022-08-07 21:45 | RT.EKG_ITS ---
APPROVED REPORT Exam: Resting ECG Reason for Exam: Chest pain Patient Location: E HR:90 bpm ECG Measurements Heart Rate 90 AXIS OK 147 P 74 QRSd 80 QRS 66 QT 347 T 61 QTc 425 Conclusion Sinus rhythm...normal P axis, V-rate 60- 99 Consider left ventricular hypertrophy...(S V1+R V5/V6) >3.50mV sinus rhythm, normal axis, normal intervals, non ischemic
--- NOTE | 2022-08-07 22:00 | DI.RAD_ITS ---
Exam(s) XR CHEST 2V PA LATERAL EXAM: XR CHEST 2V PA LATERAL CLINICAL HISTORY: chest pain TECHNIQUE: 2D digital imaging was performed. COMPARISON: No exams were available for comparison FINDINGS: HEART: Normal size. Aorta: Not dilated. PULMONARY VASCULATURE: Normal. LUNGS: Clear. PLEURAL SPACE: No pleural effusion or pneumothorax. BONE:Unremarkable for age. IMPRESSION: No acute abnormality. DATA REPOSITORY: RADIATION DOSE DELIVERED:
--- NOTE | 2022-08-07 22:02 | W.ED.GENAD ---
Discharge Plan Discharge Details Chief Complaint: Chest Pain Primary Care Provider: Lisa Mayorga V ED Provider: Foster Colón Home Meds and New Rx's Prescriptions: No Action potassium chloride 20 mEq tablet extended release 20 meq PO DAILY magnesium carb,citrate,oxide 300 mg magnesium tablet 300 mg PO DAILY vitamin B complex Capsule 1 cap PO DAILY omega 0-yvd-ktc-fish oil [Fish Oil] 300-1,000 mg capsule 1 cap PO DAILY coenzyme Q10 [Co Q-10] 100 mg capsule 100 mg PO DAILY cholecalciferol (vitamin D3) 25 mcg (1,000 unit) capsule 25 mcg PO DAILY albuterol sulfate 90 mcg/actuation HFA aerosol inhaler 2 inh INHALATION TID Patient Comments: INHALE 2 PUFFS BY MOUTH EVERY 4 HOURS NEEDED Medical Decision Making 52-year-old male history of A-fib status post ablation, presents with anterior chest pain since 3 PM nonexertional in nature rating to shoulder and neck in the setting of hypertension, EKG nonischemic normal sinus rhythm. Heart rate 93 bpm, blood pressure in the 160s over 110s. Consider symptomatic hypertension versus anxiety versus ACS versus less likely aortic or thromboembolic disease. Screening labs chest x-ray troponin aspirin EKG disposition pending reassessment. 10:56 patient resting comfortably no acute distress. Awaiting second troponin results of x-ray. HPI General Date/Time Provider Initiated Documentation: 08/07/22 21:47. HPI Narrative: 52-year-old male history of A-fib status post ablation, presents with chest discomfort over the last several hours beginning around 3 PM nonexertional associated with hypertension. Denies history of coronary disease or thromboembolic disease. Related Data Home Medications Medication Instructions Recorded Confirmed cholecalciferol (vitamin D3) 25 25 mcg PO DAILY 04/29/22 08/07/22 mcg (1,000 unit) capsule coenzyme Q10 100 mg capsule (Co 100 mg PO DAILY 04/29/22 08/07/22 Q-10) magnesium carb,citrate,oxide 300 mg PO DAILY 04/29/22 08/07/22 omega 2-mup-ihk-fish oil 300 1 cap PO DAILY 04/29/22 08/07/22 mg-1,000 mg capsule (Fish Oil) vitamin B complex 1 cap PO DAILY 04/29/22 08/07/22 potassium chloride 20 mEq 20 meq PO DAILY 05/07/22 08/07/22 tablet,extended release albuterol sulfate 90 mcg/actuation 2 inh inhalation TID 06/05/22 08/07/22 aerosol inhaler Allergies Allergy/AdvReac Type Severity Reaction Status Date / Time bupropion [From Wellbutrin] Allergy Severe suicidal Verified 08/07/22 22:08 thoughts ibuprofen Allergy Severe tongue Verified 08/07/22 22:08 swelling ibuproxam Allergy Severe Verified 08/07/22 22:08 zolpidem [From Ambien] Allergy Severe sleep Verified 08/07/22 22:08 walk/drive atenolol Allergy Unknown Verified 08/07/22 22:08 General Stated Complaint: Chest Pain MERLE: 3 Review of Systems Narrative: Review of Systems Constitutional: negative Eyes: negative ENT: negative Cardiovascular: Chest pain Respiratory: negative Gastrointestinal: negative : negative Musculoskeletal: negative Skin: negative Neurologic: negative Psych: negative PFSH All Active Problems Bilateral inguinal hernia (Acute) Laceration of finger of left hand (Acute) Laceration volar fingertip left middle finger Date of injury: 04/26/18 Fracture of distal phalanx of finger of left hand (Acute) Asymptomatic fracture of the distal phalanx of the left ring finger Date of injury: 04/26/[address] (Acute) Psoriasis (Chronic) Depression with anxiety (Acute) Hypertension (Chronic) Chronic recurrent pilonidal cyst (Acute) Ulcerative colitis (Chronic) Asthma, moderate persistent (Acute) Degenerative joint disease (DJD) of lumbar spine (Acute) Bronchitis, obstructive, chronic (Acute) Environmental allergies (Acute) Hypogonadism, male (Acute) Bilateral inguinal hernia (Acute) Medical History A-fib Former smoker Hyperlipidemia PTSD (post-traumatic stress disorder) SVT (supraventricular tachycardia) Ulcerative proctitis Surgical History H/O cardiac radiofrequency ablation H/O hernia repair (~01/2020) [facility] around ileostomy H/O total colectomy History of back surgery 2 rods, 4 screws, L4-5 2006 [place], [place] Social History Smoking/Tobacco Use Status: Former Tobacco Use Quit Date: 06/02/06 Smoking risk assessment performed?: Yes Alcohol Intake: former Drug use: Never Substance use type: does not use Do you feel safe at home: Yes Do you feel safe in your relationship?: Yes Additional Social history: unable to assess privately-06/07/22 Exam Narrative Exam Narrative: Physical Examination General: alert, awake, cooperative, resting comfortably, no acute distress HEENT: normocephalic, atraumatic; PERRL, EOM intact, conjunctiva normal; no nasal discharge; moist mucous membranes, oral and pharyngeal mucosa normal, tolerating secretions Neck: supple, trachea midline; full ROM Chest: normal to inspection Respiratory: normal respiratory effort, speaking in full sentences, clear to auscultation, no wheezing, rales or rhonchi Cardiac: regular rate, regular rhythm, S1S2 intact, no murmurs rubs or gallops GI: abdomen soft, non-tender, non-distended; no palpable mass or hepatosplenomegaly; stoma with ostomy bag Skin: no lesions, rashes or trauma appreciated Neuro: AAOx3, normal speech, moving all extremities Extremities: No peripheral edema Psych: Appropriate mood and affect Course Vital Signs Vital signs: Vital Signs Temperature 36.1 C L 08/07/22 21:49 Pulse 98 H 08/07/22 21:49 Respiratory Rate 18 08/07/22 21:49 Blood Pressure 169/119 H 08/07/22 21:49 Pulse Oximetry 98 08/07/22 21:49 Temperature 36.1 C L 08/07/22 21:49 Temperature Source Tympanic 08/07/22 21:49 Pulse 98 H 08/07/22 21:49 Respiratory Rate 18 08/07/22 21:49 Respiratory Effort Short of Breath 08/07/22 21:54 Respiratory Depth Normal 08/07/22 21:54 Respiratory Pattern Normal 08/07/22 21:54 Blood Pressure 169/119 H 08/07/22 21:49 Blood Pressure Position Supine 08/07/22 21:49 Pulse Oximetry 98 08/07/22 21:49 Oxygen Delivery Method Room Air 08/07/22 21:49 Oxygen Flow Rate 0 08/07/22 21:49 Pain Level 3 08/07/22 21:49
[2022-08-07 22:09] LABS: Abs Immature Grans 0.03 10^3/uL (0.0-0.06); Absolute Basophil Count 0.04 10^3/uL (0.0-0.2); Absolute Eosinophil Count 0.54 10^3/uL (0.0-0.7); Absolute Lymphocyte Count 1.98 10^3/uL (1.2-3.4); Absolute Monocyte Count 0.97 10^3/uL (0.1-0.8); Absolute Neutrophil Count 5.67 10^3/uL (1.2-6.7); Basophils % 0.4; Eosinophils % 5.9; HCT 44.7 % (40.0-50.0); HGB 15.2 g/dL (13.5-17.5); Immature Grans % 0.3; Lymphocytes % 21.5; MCH 28.7 pg (27.0-33.0); MCV 85 fL (80-95); MPV 9.1 fL (8.0-11.0); Monocytes % 10.5; Neutrophils % 61.4; Platelet Count 287 10^3/uL (130-400); RBC 5.29 10^6/uL (4.36-5.78); RDW 12.3 % (11.8-14.1); RDW-SD 37.8 fL; WBC 9.23 10^3/uL (4.4-10.8)
[2022-08-07] MEDS: Normal Saline 500 ML 1000 ML IV (22:16)
[2022-08-07 22:26] LABS: PTT Activated 28.2 sec (21.5-31.9); Prothrombin Time 10.1 sec (9.3-11.0)
[2022-08-07 22:29] LABS: ALT 23 U/L (16-63); AST 21 U/L (15-37); Albumin 3.9 g/dL (3.4-5.0); Alkaline Phosphatase 73 U/L (46-116); Anion Gap 8.7 mmol/L (3-11); BUN 17 mg/dL (7-18); Bilirubin, Total 0.7 mg/dL (0.2-1.0); CO2 30.3 mmol/L (21.0-32.0); CREATININE 1.2 mg/dL (0.70-1.30); Calcium 9.1 mg/dL (8.5-10.1); Chloride 102 mmol/L (98-107); Estimated GFR 72.31 (mL/min/1.73m2); Glucose 93 mg/dL (74-106); Potassium 3.5 mmol/L (3.5-5.1); Sodium 141 mmol/L (136-145); Total Protein 7.7 g/dL (6.4-8.2); Troponin I < 50 ng/L (<or=60)
--- NOTE | 2022-08-07 23:07 | DI.VRAD_ITS ---
PROCEDURE INFORMATION: Exam: XR Chest Exam date and time: 08/07/2022 10:35 PM Age: 52 years old Clinical indication: Other: Chest pain TECHNIQUE: Imaging protocol: Radiologic exam of the chest. Views: 2 views. COMPARISON: No relevant prior studies available. FINDINGS: Lungs: No pulmonary consolidation is seen. Pleural spaces: No pleural effusion or pneumothorax is demonstrated. Heart/Mediastinum: Heart size is normal. Bones/joints: The visualized bony structures appear grossly intact, as seen. IMPRESSION: No active disease is seen in the chest. Dictated and Authenticated by: Nathan Hickman MD. Ordering:RAMANA Hutchison MD
[2022-08-08] VITALS (17 sets, daily range): BP systolic 135–149; BP diastolic 78–93; PULSE 73–87; RESP 13–22; O2SAT 95–98
[2022-08-08 01:26] LABS: Troponin I < 50 ng/L (<or=60)
--- NOTE | 2022-08-08 02:20 | W.EDPROG ---
Date of service: 08/08/22 Time of Service: 02:20 Medical Decision Making Patient was signed out to me by my colleague Dr. Lowell Keller. Please refer to his HPI, physical exam, assessment and plan. At time of signout we are awaiting repeat troponin. Repeat troponin has returned, and it is normal. Chest pain is resolved. Symptoms appear clinically inconsistent with ACS or PE at this time. Patient is notably stable. Patient is requesting discharge and feels comfortable going home. Recommend close follow-up with his primary care provider. Patient has had a stress test before, but we will recommend repeat stress test on a nonemergent outpatient setting. Discussed red flags for which to return. I have extensively reviewed the treatment plan and discharge instructions with the patient. I have addressed all patient concerns at this time. The patient was made aware of what symptoms to monitor for that would warrant a return to the emergency department. Discussed the plan with the patient, they demonstrate verbal understanding and agreement with our assessment and plan at this time. The documentation in this chart was dictated using [employer] dictation software. Please excuse any dictation errors. Sign Out Sign Out Data: Sign Out Comment: chest pain, HTN, awaiting second trop Last updated by Foster Colón MD at 08/07/22 22:57 Discharge Plan Disposition Patient Disposition: Home Condition: Good Discharge Details Clinical Impression: Chest pain Primary Care Provider: Lisa Mayorga V ED Provider: Skinny Ash Home Meds and New Rx's Prescriptions: No Action potassium chloride 20 mEq tablet extended release 20 meq PO DAILY magnesium carb,citrate,oxide 300 mg magnesium tablet 300 mg PO DAILY vitamin B complex Capsule 1 cap PO DAILY omega 8-[id number]-ffa-fish oil [Fish Oil] 300-1,000 mg capsule 1 cap PO DAILY coenzyme Q10 [Co Q-10] 100 mg capsule 100 mg PO DAILY cholecalciferol (vitamin D3) 25 mcg (1,000 unit) capsule 25 mcg PO DAILY albuterol sulfate 90 mcg/actuation HFA aerosol inhaler 2 inh INHALATION TID Patient Comments: INHALE 2 PUFFS BY MOUTH EVERY 4 HOURS NEEDED Discharge Instructions Instructions: Chest Pain (ED) Additional Instructions: At this time your work-up shows no evidence of significant cardiac abnormality. Please continue taking your inhalers at home. Please follow-up closely with your primary care provider for reassessment. If you notice any worsening of your symptoms, or any new symptoms such as vomiting, diarrhea, fever, chills, shortness of breath, chest pain, numbness, weakness, or fainting , please return immediately to the emergency department for reevaluation. Please follow up with your primary care provider as soon as possible for reassessment and reevaluation. As always, it was a pleasure participating in your medical care today. Referrals: Lisa Mayorga MD [Primary Care Provider] -
== END 2022-08-08 02:35 | disposition home or self-care (01) ==
PROVIDERS: Emergency Medicine; Emergency Provider Student in an Organized Health Care Education/Training Program; PCP Family Medicine
DX: R07.9 Chest pain, unspecified (principal)
CPT/HCPCS: 80053; 93005; 96360; 99284; 71046; 84484; 85025; 85610; 85730; 93010

== ENCOUNTER 2022-08-17 15:45 | Emergency (ER) | payer MEDICARE, SELFPAY ==
[2022-08-17 15:52] VITALS: PULSE 83; RESP 18; TEMP 36.2; O2SAT 98
[2022-08-17 15:56] VITALS: BP 151/102
--- NOTE | 2022-08-17 16:14 | ED.GENADUL_ITS ---
Discharge Plan Disposition Patient Disposition: Home Condition: Stable Discharge Details Clinical Impression: Enteritis, Nausea Primary Care Provider: Lisa Mayorga V ED Provider: Saskia Au Home Meds and New Rx's Prescriptions: New ondansetron 4 mg tablet,disintegrating 4 mg PO Q6H PRN (Reason: nausea and vomiting) Qty: 10 0RF Continued potassium chloride 20 mEq tablet extended release 20 meq PO DAILY magnesium carb,citrate,oxide 300 mg magnesium tablet 300 mg PO DAILY vitamin B complex Capsule 1 cap PO DAILY omega 7-cht-coa-fish oil [Fish Oil] 300-1,000 mg capsule 1 cap PO DAILY coenzyme Q10 [Co Q-10] 100 mg capsule 100 mg PO DAILY cholecalciferol (vitamin D3) 25 mcg (1,000 unit) capsule 25 mcg PO DAILY albuterol sulfate 90 mcg/actuation HFA aerosol inhaler 2 inh INHALATION TID Patient Comments: INHALE 2 PUFFS BY MOUTH EVERY 4 HOURS NEEDED fluticasone propion-salmeterol [Advair Diskus] 250-50 mcg/dose blister with device 1 inh INHALATION BID Patient Comments: Inhale 1 puff by mouth twice a day No Action CBD oil 16 mg drops PO/SL Discharge Instructions Instructions: Ondansetron (By mouth), Acute Nausea and Vomiting (ED) Additional Instructions: As we discussed, your labs are reassuring. Your imaging is consistent with enteritis which is some inflammation, this can be from a virus or other infectious source. Please encourage hydration but abstain from any red fluids. You may use Zofran as prescribed to help with any nausea. Please call Dr. Langford's office for follow-up visit Friday. If in the interim you develop fever/chills, chest pain shortness of breath, inability to hydrate, increased pain or the new/worsening symptom please seek care urgently once again. Referrals: Lisa Mayorga MD [Primary Care Provider] - Discharge Data Discharge Date/Time-TO BE ENTERED AT DEPARTURE: 08/17/22 19:07 Medical Decision Making Patient is a pleasant 52-year-old gentleman with past medical history significant for ulcerative colitis has been well controlled after total colectomy, ostomy, atrial fibrillation, PTSD, presenting today with chief complaint of stomal retraction, abdominal discomfort and decreased stoma output. States that he awoke this morning noting some abdominal discomfort and that the stoma was much more retracted in than typical. He also endorses some nausea but no vomiting. He does continue to have some rectal output which typically is slightly bloody and mucousy. He did have 1 episode like that this today but this is not a change from his baseline. No recent antibiotics. Last abdominal surgery was 2 years ago after he had a complicated hernia which resulted in him having stoma placement. On exam, patient appears nontoxic. His lungs are clear, normal cardiac exam. His abdominal exam is relatively benign. He reports that the stoma is retracted further than typical but it does appear pink and healthy. I do not appreciate any significant abnormality but have not seen this on this patient historically. He did have soft to runny stool output in his ostomy bag. He is diffusely tender with palpation but no peritoneal findings. Concern for potential obstruction. I do not see any acute emergent pathology on physical exam with the ostomy. Also considered inflammatory process, particularly given hx of UC vs. other FINDINGS: Liver: Normal.? Gallbladder and bile ducts: Normal.? Pancreas: Normal.? Spleen: Normal.? Adrenal glands: Normal. No mass. Kidneys and ureters: Normal. Stomach and bowel: Surgical changes of colectomy, with right lower quadrant ileostomy. Several loops of nondilated, gas and fluid-filled small bowel, which is a nonspecific finding, but can be seen with enteritis. Appendix: No evidence of appendicitis. Intraperitoneal space: Unremarkable. No free air. No significant fluid collection. Vasculature: Phleboliths within the pelvis. Atherosclerotic disease of the abdominal aorta and iliac arteries. Lymph nodes: Unremarkable. No enlarged lymph nodes. Urinary bladder: Unremarkable as visualized. Reproductive: Unremarkable as visualized. Bones/joints: Changes of prior L5-S1 discectomy and posterior fusion. Soft tissues: Normal. IMPRESSION: Several loops of nondilated, gas and fluid-filled small bowel, which is a nonspecific finding, but can be seen with enteritis. Consulted with Dr. Langford who advised that ostomy will not retract which was patients largest concern. He advised supportive care. Labs without significant abnormality. Discussed with patient. We discussed supportive measures. Encourage hydration. Advised that he should call Dr. Langford as he would like to transition his care to this area. Return precautions were discussed. We will send home with Omid if he has any recurrence of his nausea. All of his questions and concerns were addressed and he is in agreement this plan. HPI General Date/Time Provider Initiated Documentation: 08/17/22 15:52 . Limitations to Documentation: no limitations . Information obtained by: patient, RN notes reviewed and old records reviewed . History of Present Illness 52 year old M presents to the emergency department with the chief complaint of retracted stoma, decreased stool output, nausea, abdominal discomfort, described as moderate, Quality is described as aching, and is localized to the abdomen. Patient reports no radiation. Patient started experiencing this hour(s) (woke like this in the AM) and it has been c onstant. No relieving factors improve symptom(s), No exacerbating factors reported . Patient notes no other symptoms.. Patient did receive the following treatments prior to arrival, none Related Data Home Medications Medication Instructions Recorded Confirmed cholecalciferol (vitamin D3) 25 25 mcg PO DAILY 04/29/22 08/17/22 mcg (1,000 unit) capsule coenzyme Q10 100 mg capsule (Co 100 mg PO DAILY 04/29/22 08/17/22 Q-10) magnesium carb,citrate,oxide 300 mg PO DAILY 04/29/22 08/17/22 omega 1-dli-mck-fish oil 300 1 cap PO DAILY 04/29/22 08/17/22 mg-1,000 mg capsule (Fish Oil) vitamin B complex 1 cap PO DAILY 04/29/22 08/17/22 potassium chloride 20 mEq 20 meq PO DAILY 05/07/22 08/17/22 tablet,extended release albuterol sulfate 90 mcg/actuation 2 inh inhalation TID 06/05/22 08/17/22 aerosol inhaler fluticasone 250 mcg-salmeterol 50 1 inh inhalation BID 08/17/22 08/17/22 mcg/dose blistr powdr for inhalation (Advair Diskus) ondansetron 4 mg disintegrating 4 mg PO Q6H PRN nausea and 08/17/22 tablet vomiting #10 tabs CBD oil PO/SL 08/23/22 Previous Rx's Medication Instructions Recorded ondansetron 4 mg disintegrating 4 mg PO Q6H PRN nausea and 08/17/22 tablet vomiting #10 tabs Allergies Allergy/AdvReac Type Severity Reaction Status Date / Time bupropion [From Wellbutrin] Allergy Severe suicidal Verified 08/17/22 15:57 thoughts ibuprofen Allergy Severe tongue Verified 08/17/22 15:57 swelling ibuproxam Allergy Severe Verified 08/17/22 15:57 zolpidem [From Ambien] Allergy Severe sleep Verified 08/17/22 15:57 walk/drive atenolol Allergy Unknown Verified 08/17/22 15:57 NSAIDS (Non-Steroidal Allergy Unverified 08/17/22 15:57 Anti-Inflamma General Stated Complaint: Abd Prob MERLE: 3 Review of Systems Constitutional Constitutional: Reports as per HPI, Denies chills, Denies fatigue and Denies fev er(s) Cardiovascular Cardiovascular: Reports as per HPI, Denies chest pain and Denies dyspnea Respiratory Respiratory: Reports as per HPI, Denies cough and Denies dyspnea Gastrointestinal Gastrointestinal: Reports as per HPI Genitourinary Genitourinary: Denies system reviewed and no additional complaints, except as documented (patient denies any change in urinary habits) Musculoskeletal Musculoskeletal: Reports as per HPI and Denies back pain Integumentary/Breasts Skin/Breast: Reports as per HPI and Denies rash Neurologic Neurologic: Reports as per HPI Endocrine Endocrine: Denies fatigue PFSH All Active Problems (Updated 08/17/22 @ 18:45 by NIA Dumont) Chest pain (Acute) Enteritis (Acute) Nausea (Acute) Bilateral inguinal hernia (Acute) Laceration of finger of left hand (Acute) Laceration volar fingertip left middle finger Date of injury: 04/26/18 Fracture of distal phalanx of finger of left hand (Acute) Asymptomatic fracture of the distal phalanx of the left ring finger Date of injury: 04/26/[address] (Acute) Psoriasis (Chronic) Depression with anxiety (Acute) Hypertension (Chronic) Chronic recurrent pilonidal cyst (Acute) Ulcerative colitis (Chronic) Asthma, moderate persistent (Acute) Degenerative joint disease (DJD) of lumbar spine (Acute) Bronchitis, obstructive, chronic (Acute) Environmental allergies (Acute) Hypogonadism, male (Acute) Bilateral inguinal hernia (Acute) Medical History A-fib Former smoker Hyperlipidemia PTSD (post-traumatic stress disorder) SVT (supraventricular tachycardia) Ulcerative proctitis Surgical History H/O cardiac radiofrequency ablation H/O hernia repair (~01/2020) [facility] around ileostomy H/O total colectomy History of back surgery 2 rods, 4 screws, L4-5 2006 [place], [place] Social History Smoking/Tobacco Use Status: Former Tobacco Use Quit Date: 06/02/06 Smoking risk assessment performed?: Yes Alcohol Intake: former Drug use: Never Substance use type: does not use Do you feel safe at home: Yes Do you feel safe in your relationship?: Yes Additional Social history: unable to assess privately-06/07/22 Exam Const General: cooperative, healthy appearing, comfortable, no acute distress and well developed Nutritional Appearance: average body habitus and well nourished Orientation: alert and awake HENMT Head: normal to inspection Mouth: moist mucous membranes Resp Effort & Inspection: normal respiratory effort, able to speak in complete sentences and no respiratory distress Auscultation: clear to auscultation bilaterally, no rales, no rhonchi and no wheezes Cardio Rate: regular rate Rhythm: regular rhythm Heart Sounds: S1 normal and S2 normal GI Inspection: normal to inspection (stoma RUQ, pink, well perfused, normal ostomy output noted), no edema and non-distended Palpation: soft, no hepatosplenomegaly, no masses, not rigid, tender (diffuse tenderness, no focal findings) with no rebound tenderness and No ascites Percussion: normal to percussion Auscultation: normal bowel sounds Back/Spine/Pelvis Back: no CVA tenderness Skin General skin exam: no rashes or lesions noted Trauma: no lacerations or abrasions Neuro General: patient alert and patient awake Cognition: normal cognition Speech: speech normal Gait: normal gait Course Vital Signs Vital signs: Vital Signs Temperature 36.2 C L 08/17/22 15:52 Pulse 83 08/17/22 15:52 Respiratory Rate 18 08/17/22 15:52 Pulse Oximetry 98 08/17/22 15:52 Temperature 36.2 C L 08/17/22 15:52 Temperature Source Tympanic 08/17/22 15:52 Pulse 83 08/17/22 15:52 Respiratory Rate 18 08/17/22 15:52 Respiratory Effort Normal, Non-Labored 08/17/22 15:56 Blood Pressure 151/102 H 08/17/22 15:56 Pulse Oximetry 98 08/17/22 15:52 Oxygen Delivery Method Room Air 08/17/22 15:52 Oxygen Flow Rate 0 08/17/22 15:52
--- NOTE | 2022-08-17 17:15 | DI.CT_ITS ---
Exam(s) CT ABDOMEN PELVIS W EXAM: CT ABDOMEN PELVIS W CLINICAL HISTORY: decreased stoma output, abdominal pain, stoma retr TECHNIQUE: Imaging Protocol: Axial computed tomography images with coronal and sagittal reformatted images were created and reviewed CONTRAST MATERIAL: Intravenous: Omnipaque 350 Contrast volume:100 mL Oral: No COMPARISON: CT ABD PELVIS WITH CONTRAST from 10/16/2012 FINDINGS: ABDOMEN: Lung Bases: Normal where visualized. Liver: Normal density. No measurable mass. Portal, Superior Mesenteric, and Splenic Veins: Unremarkable. Gallbladder and Biliary Tract: No radiodense calculus or dilation. Pancreas: Normal density, no abnormal calcifications or inflammatory process. Spleen: Normal. Adrenals: No masses seen. Kidneys: Normal size, contour and axis. No radiodense stones or obstructive uropathy. No masses seen. Abdominal Aorta: Abdominal portion non-dilated. Atherosclerosis. Bowel: Status post colectomy. There is an enterostomy in the right abdomen. There is no evidence of bowel obstruction or bowel wall thickening. Peritoneal Cavity: No ascites, collection or mesenteric inflammatory response. No free air. Lymph Nodes: Within normal limits. Bones: Within normal limits for the patient's age. Postsurgical changes are seen in the lower lumbar spine. Soft Tissues: Postsurgical changes of bilateral inguinal hernia repairs. PELVIS: Bladder: Symmetric distention, no gross wall thickening. Reproductive Organs: Unremarkable as visualized. Lymph Nodes: Within normal limits. Bones: Within normal limits for the patient's age. IMPRESSION: No definite acute abdominal or pelvic process. RADIATION DOSE DELIVERED: 1,017.16mGy.cm Total DLP DATA REPOSITORY: All CT scans at this facility are submitted to the National Radiology Data Registry (NRDR) Dose Index Registry (DIR) with the [employer] ([employer]). RADIATION OPTIMIZATION: All CT scans at this facility use at least one of these dose optimization te chniques: automated exposure control; mA and/or kV adjustment per patient size (includes targeted exa ms where dose is matched to clinical indication); or iterative reconstruction.
[2022-08-17] MEDS: Lactated Ringers 1,000 ML 1000 ML IV (17:25)
[2022-08-17 17:34] LABS: Abs Immature Grans 0.03 10^3/uL (0.0-0.06); Absolute Basophil Count 0.02 10^3/uL (0.0-0.2); Absolute Eosinophil Count 0.32 10^3/uL (0.0-0.7); Absolute Lymphocyte Count 1.61 10^3/uL (1.2-3.4); Absolute Monocyte Count 0.71 10^3/uL (0.1-0.8); Basophils % 0.3; Eosinophils % 4.6; HCT 45.8 % (40.0-50.0); HGB 15.8 g/dL (13.5-17.5); Immature Grans % 0.4; MCH 28.5 pg (27.0-33.0); MCHC 34.5 % (32.0-36.0); MCV 83 fL (80-95); MPV 8.8 fL (8.0-11.0); Monocytes % 10.2; Neutrophils % 61.5; Platelet Count 295 10^3/uL (130-400); RBC 5.55 10^6/uL (4.36-5.78); RDW 12.1 % (11.8-14.1); RDW-SD 36.5 fL; WBC 6.99 10^3/uL (4.4-10.8)
[2022-08-17 17:47] LABS: ALT 23 U/L (16-63); AST 18 U/L (15-37); Albumin 4.2 g/dL (3.4-5.0); Alkaline Phosphatase 68 U/L (46-116); Anion Gap 5.8 mmol/L (3-11); BUN 16 mg/dL (7-18); Bilirubin, Total 0.8 mg/dL (0.2-1.0); CO2 31.2 mmol/L (21.0-32.0); CREATININE 1.1 mg/dL (0.70-1.30); Calcium 9.3 mg/dL (8.5-10.1); Chloride 100 mmol/L (98-107); Estimated GFR 80.27 (mL/min/1.73m2); Glucose 106 mg/dL (74-106); Lipase 40 U/L (16-77); Magnesium 2.3 mg/dL (1.8-2.4); Potassium 3.9 mmol/L (3.5-5.1); Sodium 137 mmol/L (136-145); Total Protein 8.1 g/dL (6.4-8.2)
[2022-08-17] MEDS: Omnipaque 350 MG/ML 100 ML BTL IJ (17:51)
[2022-08-17] MEDS: Normal Saline - Diluent 50 ML VIAL IJ (17:51)
[2022-08-17] MEDS: Ondansetron 4 MG/2 ML VIAL IVP (17:55)
[2022-08-17 18:07] LABS: Bilirubin Negative (Negative); Blood Negative (Negative); Clarity Cloudy (Clear); Glucose Negative (Negative); Ketones Negative (Negative); Leukocyte Esterase Negative (Negative); Nitrite Negative (Negative); Specific Gravity 1.015 (1.005-1.025); Urobilinogen 0.2 mg/dL (Up to 0.2)
--- NOTE | 2022-08-17 18:25 | DI.VRAD_ITS ---
PROCEDURE INFORMATION: Exam: CT Abdomen And Pelvis With Contrast Exam date and time: 08/17/2022 5:47 PM Age: 52 years old Clinical indication: Other: Decreased stoma output, abdominal pain, stoma retr; Prior surgery; Surgery date: 6+ months; Surgery type: Hernia repair 2019, colectomy, back sugery 07 TECHNIQUE: Imaging protocol: Computed tomography of the abdomen and pelvis with contrast. Contrast material: OMNIPAQUE 350; Contrast volume: 100 ml; Contrast route: INTRAVENOUS (IV); COMPARISON: CR XR CHEST 2V PA LATERAL 08/07/2022 10:35 PM FINDINGS: Liver: Normal. Gallbladder and bile ducts: Normal. Pancreas: Normal. Spleen: Normal. Adrenal glands: Normal. No mass. Kidneys and ureters: Normal. Stomach and bowel: Surgical changes of colectomy, with right lower quadrant ileostomy. Several loops of nondilated, gas and fluid-filled small bowel, which is a nonspecific finding, but can be seen with enteritis. Appendix: No evidence of appendicitis. Intraperitoneal space: Unremarkable. No free air. No significant fluid collection. Vasculature: Phleboliths within the pelvis. Atherosclerotic disease of the abdominal aorta and iliac arteries. Lymph nodes: Unremarkable. No enlarged lymph nodes. Urinary bladder: Unremarkable as visualized. Reproductive: Unremarkable as visualized. Bones/joints: Changes of prior L5-S1 discectomy and posterior fusion. Soft tissues: Normal. IMPRESSION: Several loops of nondilated, gas and fluid-filled small bowel, which is a nonspecific finding, but can be seen with enteritis. Dictated and Authenticated by: Howard Jones MD. Ordering:ESVIN Kruger MD
[2022-08-17 18:51] VITALS: BP 154/113; PULSE 79
[2022-08-17 18:53] VITALS: BP 154/113; PULSE 88; RESP 22; O2SAT 98
[2022-08-17] MEDS: Ondansetron O.D.T. 4 MG TABEF, 3 TABS/BTL PO (19:04)
== END 2022-08-17 19:07 | disposition home or self-care (01) ==
PROVIDERS: Emergency Provider Physician Assistant; PCP Family Medicine
DX: K52.9 Noninfective gastroenteritis and colitis, unspecified (principal); R11.0 Nausea
CPT/HCPCS: 36415; 80053; 83690; 96361; 96365; 99284; 74177; 81003; 83735; 85025; J2405; J3490

== ENCOUNTER 2022-08-20 08:49 | Outpatient (CLI) | payer MEDICARE, SELFPAY | END 2022-08-20 08:50 | disposition home or self-care (01) | PROVIDERS: PCP Family Medicine; Visit Provider Family Medicine | DX: I48.91 Unspecified atrial fibrillation (principal) | CPT/HCPCS: 93246 ==

== ENCOUNTER → 2022-09-04 13:50 | Outpatient (BNVA) | payer MEDICARE, SELFPAY | PROVIDERS: PCP Family Medicine; Referring Provider Family Medicine; Visit Provider Surgery | DX: K51.90 Ulcerative colitis, unspecified, without complications (principal) | CPT/HCPCS: 99215 ==

== ENCOUNTER 2022-09-10 06:57 | Day surgery (SDC) | payer MEDICARE, SELFPAY ==
[2022-09-10 07:25] VITALS: BP 123/96; PULSE 71; RESP 16; TEMP 36.5; O2SAT 97
[2022-09-10] MEDS: Lactated Ringers 1,000 ML 80 ML IV (08:13)
--- NOTE | 2022-09-10 08:40 | W.ANESPRE ---
General Info Date of Service Date Performed: 09/11/22 Height: 5 ft 9 in Weight: 82.3 kg Body Mass Index (BMI): 26.8 Surgical Procedure: Operation Date: 09/10/22 08:25 Proposed Procedure Side Surgeon p Flexible Sigmoidoscopy Shelli Lang, Meds Allergies and Home Medications Allergies Allergy/AdvReac Type Severity Reaction Status Date / Time ibuprofen Allergy Severe tongue Verified 09/10/22 07:36 swelling NSAIDS (Non-Steroidal Allergy Severe Anaphylaxis Unverified 09/10/22 08:27 Anti-Inflamma bupropion [From Wellbutrin] AdvReac Severe suicidal Verified 09/10/22 07:36 thoughts zolpidem [From Ambien] AdvReac Severe sleep Verified 09/10/22 07:36 walk/drive atenolol AdvReac Unknown amnesia Verified 09/10/22 07:36 Home Medication Medication Instructions Recorded cholecalciferol (vitamin D3) 25 25 mcg PO DAILY 04/29/22 mcg (1,000 unit) capsule coenzyme Q10 100 mg capsule (Co 100 mg PO DAILY 04/29/22 Q-10) magnesium carb,citrate,oxide 300 mg PO DAILY 04/29/22 omega 6-inf-eyu-fish oil 300 1 cap PO DAILY 04/29/22 mg-1,000 mg capsule (Fish Oil) vitamin B complex 1 cap PO DAILY 04/29/22 potassium chloride 20 mEq 20 meq PO DAILY 05/07/22 tablet,extended release albuterol sulfate 90 mcg/actuation 2 inh inhalation TID 06/05/22 aerosol inhaler fluticasone 250 mcg-salmeterol 50 1 inh inhalation BID 08/17/22 mcg/dose blistr powdr for inhalation (Advair Diskus) ondansetron 4 mg disintegrating 4 mg PO Q6H PRN nausea and 08/17/22 tablet vomiting #10 tabs CBD oil PO/SL 08/23/22 Current Visit Medications: Current Medications Generic Name Dose Route Start Last Admin Trade Name Freq PRN Reason Stop Dose Admin Hyoscyamine Sulfate 0.125 mg 09/10/22 02:43 Hyoscyamine 0.125 Mg Sl/Oral/Chew SL DIRECTED PRN Ringer's Solution 1,000 mls @ 80 mls/hr 09/10/22 06:00 09/10/22 08:13 IV 10/09/22 23:59 80 mls/hr INFUSION CHRISTIANO Administration IV Miscellaneous Supplies 1 each 09/10/22 06:00 Iv Access IV 10/09/22 23:59 DIRECTED CHRISTIANO Ondansetron HCl 4 mg 09/10/22 02:43 Ondansetron 4 Mg/2 Ml Vial IVP Q4H PRN PRN Nausea / Vomiting Sodium Biphosphate/Sodium Phosphate 266 ml 09/10/22 06:00 09/10/22 07:58 Na Phosphate Enema 133 Ml Btl WI 09/10/22 16:00 1 btl PREOP CHRISTIANO Administration Sodium Chloride 0 ml 09/10/22 06:00 Normal Saline Flush 10 Ml Syr IV 10/09/22 23:59 PRN PRN Sodium Chloride 0 ml 09/10/22 06:00 Normal Saline 10 Ml Vial IJ 10/09/22 23:59 DIRECTED PRN Sterile Water 0 ml 09/10/22 06:00 Water,Injection,Sterile 10 Ml Vial IJ 10/09/22 23:59 DIRECTED PRN PFSH Active Problems Active Problems: Problem Status Onset Code Enteritis K52.9 Nausea R11.0 Bilateral inguinal hernia K40.20 Laceration of finger of left hand S61.219A Fracture of distal phalanx of finger of left hand S62.639A Ileostomy in place Z93.2 Psoriasis L40.9 Depression with anxiety F41.8 Hypertension I10 Chronic recurrent pilonidal cyst L05.91 Ulcerative colitis K51.90 Asthma, moderate persistent J45.40 Degenerative joint disease (DJD) of lumbar spine M47.816 Bronchitis, obstructive, chronic J44.9 Environmental allergies Z91.09 Hypogonadism, male E29.1 Bilateral inguinal hernia K40.20 Medical History Medical History A-fib Former smoker Hyperlipidemia PTSD (post-traumatic stress disorder) SVT (supraventricular tachycardia) Ulcerative proctitis Surgical History Surgical History H/O cardiac radiofrequency ablation H/O hernia repair (~01/2020) [facility] around ileostomy H/O total colectomy History of back surgery 2 rods, 4 screws, L4-5 2006 [place], [place] Tobacco Smoking/Tobacco Use Status: Former Tobacco Use Alcohol Alcohol Intake: former Substance Use Substance use: Never Substance use type: does not use Vital Signs and Lab Results Vital Signs Most Recent Vital Signs in EMR: Most Recent Vital Signs Temp Pulse Resp BP Pulse Ox 36.5 C 71 16 123/96 H 97 09/10/22 07:25 09/10/22 07:25 09/10/22 07:25 09/10/22 07:25 09/10/22 07:25 Lab Results Blood Type / Crossmatch: No Data to Display Complete Blood Count: White Blood Count 6.99 10^3/uL (4.4-10.8) 08/17/22 17:25 Red Blood Count 5.55 10^6/uL (4.36-5.78) 08/17/22 17:25 Hemoglobin 15.8 g/dL (13.5-17.5) 08/17/22 17:25 Hematocrit 45.8 % (40.0-50.0) 08/17/22 17:25 Platelet Count 295 10^3/uL (130-400) 08/17/22 17:25 Complete Metabolic Panel: Sodium 137 mmol/L (136-145) 08/17/22 17:25 Potassium 3.9 mmol/L (3.5-5.1) 08/17/22 17:25 Chloride 100 mmol/L (98-107) 08/17/22 17:25 Carbon Dioxide 31.2 mmol/L (21.0-32.0) 08/17/22 17:25 BUN 16 mg/dL (7-18) 08/17/22 17:25 Creatinine 1.1 mg/dL (0.70-1.30) 08/17/22 17:25 Est GFR (CKD-EPI 2020) 80.27 (mL/min/1.73m2) 08/17/22 17:25 Magnesium 2.3 mg/dL (1.8-2.4) 08/17/22 17:25 Calcium 9.3 mg/dL (8.5-10.1) 08/17/22 17:25 Albumin 4.2 g/dL (3.4-5.0) 08/17/22 17:25 Glucose 106 mg/dL (74-106) 08/17/22 17:25 Liver Function Panel: Alanine Aminotransferase (ALT/SGPT) 23 U/L (16-63) 08/17/22 17:25 Aspartate Amino Transf (AST/SGOT) 18 U/L (15-37) 08/17/22 17:25 Coagulation Panel: No Data to Display Cardiac Panel: No Data to Display Arterial Blood Gas: No Data to Display Venous Blood Gas: No Data to Display Pancreas Panel: Lipase 40 U/L (16-77) 08/17/22 17:25 Thyroid Panel: No Data to Display Infectious Disease: No Data to Display Blood Cultures: No Data to Display Toxicology Panel: No Data to Display Imaging and Studies Imaging and Studies Study information below may be from another EMR and interpreted by another provider. Please see original notes in EMR for more complete details. EKG Summary: Sinus rhythm...normal P axis, V-rate 60- 99 Consider left ventricular hypertrophy...(S V1+R V5/V6) >3.50mV 08/22 Echocardiogram Summary: Summary: 1. Left ventricle: The cavity size was normal. Wall thickness was normal. Systolic function was normal. The estimated ejection fraction was 60-65%. Wall motion was normal; there were no regional wall motion abnormalities. Left ventricular diastolic function parameters were normal. 2. Pulmonary arteries: Pulmonary systolic pressure was in the range of 15mm Hg to 25mm Hg. 3. Inferior vena cava: The vessel was normal in size; the respirophasic diameter changes were in the normal range (greater than or equal to 50%); findings are consistent with normal central venous pressure. 09/15 Pulmonary Function Summary: EFFORT: Good patient cooperation and effort. FVC maneuvers were ended early to avoid syncope and seizure. Last hemoglobin was done more than a year ago. BRONCHODILATOR: Albuterol inhaler 2 puffs via spacer BREATH SOUNDS: Clear and equal, but decreased aeration bilaterally with a significant increase in aeration following the bronchodilator. Patient noticed a significant improvement after the bronchodilator. Actual Pre-Bronch Pred % Pred PARMJIT Actual Post-Bronch %Pred 2.99 1.24 42 0.39 3.20 2.59 4.33 4.97 3.89 78 3.53 9.73 60 4.06 32 3.11 53 68 10 1.98 32 7.47 4.51 2.24 50 1.85 4.64 4.48 3.36 90 57 63 52 47 --. SPIROMETRY FVC (L) FEV1 (L) FEV1/FVC (%) FEF 25-75% (L/sec) FEF Max (L/sec) FIVC (.) FIF Max (L/sec) - _- LUNG VOLUMES SVC (L) IC (L) ERV (L) ___- DIFFUSION DLCOunc (ml/min/mmHg) DLCOcor (ml/min/mmHg) DL/VA (ml/min/mmHg/L) VA (L) 4.47 3.44 1.03 4.83 3.34 1.49 92 103 68 27.07 3.88 6.98 30.99 30.99 4.59 6.75 87 84 103 5.45 % Chng 450 479 S +[phone] +72 -22 Anesthesia Assessment and Plan Anesthesia History Personal History: No History of Anesthesia Complications Family History: No Family History of Anesthesia Complications Exercise Tolerance Exercise Tolerance: Metabolic Equivalents>4 Pertinent Negatives Pertinent Negatives: No Symptoms of GERD Cardiac & Pulmonary Exam Cardiac Exam: Normal S1/S2 Heart Sounds Pulmonary Exam: Clear Bilateral Breath Sounds Implantable Cardiac Device Does patient have a Pacemaker or an ICD?: No Airway Exam Known Difficult Airway: No Mallampati Class: 2 Mouth Opening: Normal (> 3cm) Thyromental Distance: Greater than 3 cm Neck Range of Motion: Full ROM Neck Circumference: Normal Teeth Condition: Generalized Poor Dentition ASA Classification ASA Score: ASA 3 Emergency Case?: No NPO Status NPO Status: NPO Clears >2 hours, Solids >8 hours Anesthesia Plan Resuscitation Status: Full Code Anesthesia Technique: General Anesthesia Airway Planned: Natural Airway Monitors Used: Standard Monitors Preoperative Comments:: Recent holster to see if AFib recurring. No results yet. Stable health. Has ileostomy
--- NOTE | 2022-09-10 09:02 | PDOC.DSDIS_ITS ---
Date of service: 09/10/22 Time of Service: 10:11 Discharge Plan Disposition Patient Disposition: Home Discharge Details Attending Provider: Shelli Lang Primary Care Provider: Lisa Mayorga V Home Meds and New Rx's Prescriptions: Continued potassium chloride 20 mEq tablet extended release 20 meq PO DAILY magnesium carb,citrate,oxide 300 mg magnesium tablet 300 mg PO DAILY vitamin B complex Capsule 1 cap PO DAILY omega 8-tkt-uxo-fish oil [Fish Oil] 300-1,000 mg capsule 1 cap PO DAILY coenzyme Q10 [Co Q-10] 100 mg capsule 100 mg PO DAILY cholecalciferol (vitamin D3) 25 mcg (1,000 unit) capsule 25 mcg PO DAILY CBD oil 16 mg drops PO/SL albuterol sulfate 90 mcg/actuation HFA aerosol inhaler 2 inh INHALATION TID Patient Comments: INHALE 2 PUFFS BY MOUTH EVERY 4 HOURS NEEDED fluticasone propion-salmeterol [Advair Diskus] 250-50 mcg/dose blister with device 1 inh INHALATION BID Patient Comments: Inhale 1 puff by mouth twice a day ondansetron 4 mg tablet,disintegrating 4 mg PO Q6H PRN (Reason: nausea and vomiting) Qty: 10 0RF Discharge Instructions Additional Instructions: DSU Colonoscopy Post- Op Instructions Instructions for Everyone who is given Anesthesia: For your safety, please do the following for the next twenty-four (24) hours: *Do Not operate a motor vehicle (car, truck, motorcycle, etc.) *Do Not drink alcoholic beverages or use any recreational drugs for the first 24 hours or while taking pain medications. The medications in your body may have a reaction that can be dangerous. *Do Not make any important decisions or sign any important papers. Findings: severe procotitis. He does have some packing material in place. This will dissolve and pass on its own. -steriods enamas at bedtime. -You may notice increased bleeding today and for the next 72 hours/ because of the biopsies Follow up: Dr Langford in 2-3 wks 1. No lifting over 20 pounds or strenuous activity for the first 24 hours after your procedure. After 24 hours there are no restrictions on your activity but you may feel fatigued for a few days. 2. After you arrive home you may have a light meal and return to your normal diet as you can tolerate it without feeling sick to your stomach. 3. You may have a bloated, gaseous feeling in your belly (abdomen) after a colonoscopy. Passing gas and belching will help. Walking or lying down on your left side with your knees flexed may relieve the discomfort. Call the office at [phone] (Office) or [phone] (Hospital) right away if you notice any of the following: a.Vomiting of blood or ?coffee ground stools?. b.Rectal bleeding 1Tbsp, blood clots or continuous bleeding. c.Severe belly (abdominal) pain. d.A hard distended belly (abdomen) and an inability to pass gas. 4. Please don?t expect to have a normal BM (bowel movement) for 2-3 days after your procedure. 5. If there are questions regarding the findings of your procedure, please contact your doctor 6. If you are unable to contact your doctor with a problem, contact the hospital at [phone]. 7. Continue all your regular medications unless directed otherwise. I understand the above instructions and have no questions. Signature of Patient or Adult Escort Name of Responsible Adult Escort Signature of Nurse Date/Time Stand Alone Forms: Anesthesia Discharge Inst., Press Ganey (DSU) Discharge Orders Discharge Orders: Discharge Order (Routine); Ordered 09/10/22 Ordered By: Shelli Lang
[2022-09-10 09:07] VITALS: BMI 26.8
--- NOTE | 2022-09-10 09:27 | W.PM.HP.N ---
Date of service: 09/10/22 Time of Service: 09:27 Assessment and Plan Assessment and plan (1) Ulcerative proctitis: Assessment and plan: Informed consent is obtained for the procedural (explained in simple layman's terms that the pt. and/or family could understand) explaining risks vs benefits and alternatives to the procedure and consequences if we do not do the procedure and need/rational for the procedure. Risks include but are not limited to: bleeding, infection, perforation of esophagus, stomach, colon, small intestines. This would necessitate emergency surgery to repair the damage w/ possible ostomy; and other associated complications w/ the required surgery. Also complications of anesthesia including aspiration, CT/CVA/. Discussed with the patient that his best course of action is probably to follow-up with colorectal and have the rectum removed. (2) Ulcerative colitis: Status: Chronic (3) Bilateral inguinal hernia: Status: Acute (4) Ileostomy in place: Status: Acute (5) Psoriasis: Status: Chronic (6) Chronic recurrent pilonidal cyst: Status: Acute (7) Asthma, moderate persistent: Status: Acute (8) Degenerative joint disease (DJD) of lumbar spine: Status: Acute (9) Hypogonadism, male: Status: Acute History of Present Illness Narrative: Dr. 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 It seems like he has had symptoms ever since the time of his ileostomy creation.? Certainly, it could also be recrudescent ulcerative colitis, or other sequelae of longstanding ulcerative colitis such as rectal malignancy.? We will work to schedule direct visualization with flexible sigmoidoscopy for proctoscopy as soon as possible.? In the meantime, I will provide a prescription for short-chain fatty acid enemas in the case that this is diversion proctitis. With regards to the ileostomy, I was able to review his previous CAT scan.? I do not see any discrete evidence of a parastomal hernia, and clinically, this sounds more like a ostomy prolapse that has been improved.? The ileostomy itself does not seem to be in any danger of complete retraction, and seems to be working better and feeling better after his recent confirmational change.? Regardless, the priority at this point should be to clarify the diagnosis for the rectal discharge.? Prior to making any changes to the ileostomy itself.? It is very nice to see Mic in the office today.? He is following up for referral after an emergency department visit in the beginning of July.? At that time, he offers 2 complaints.? The first regarding the increased increase in bloody mucoid discharge per anus.? This is similar to symptoms he experienced with his previous diagnosis of ulcerative colitis.? He has been more ongoing since his abdominal colectomy surgery.? However, the volume and frequency of crampy perianal discomfort has increased over the past few weeks.? He estimates approximately 3-6 bloody mucoid per anus every day.? He also has increasing symptoms of tenesmus despite evacuating his rectum.? He thinks the character of the discharge has become more bloody.? His second concern with regard to the end ileostomy.? He tells me that he has a parastomal hernia, and that most recently, his ileostomy has retracted.? Upon further questioning, it sounds like he was experiencing chronic ileostomy prolapse, which has become less frequent, and noticeable.? Originally, he underwent total abdominal colectomy approximately 9 years ago for his ulcerative colitis.? His postoperative course was complicated by a parastomal hernia that required reciting and creation of a new ileostomy.? After that surgery, his ileostomy had the appearance of a finger that protruded into his ileostomy device.? It is worse, it looked like a long congested follow-up.? Occasionally it would reduce spontaneously, but generally he had the appearance described above.? Over the past several weeks however the ileostomy has become smaller in size.? Incidentally, he now feels better, and causes him less discomfort in that area.? He also reports a small bulge in the area that is most noticeable when he is standing up.? He describes this as a parastomal hernia. Today: the patient that he still has his rectum in place, because at the time Right his original surgery was on an emergency basis. At that time he was considering having a J-pouch formed. He has not had and is decided he would not have a pouch placed. He has not been having regular surveillance of the rectum.. At this point he is incontinent of blood and mucus/no longer has control over the sphincters. He has not been having regular surveillance studies. he continues to have pain and the bleeding and has lost control. He did look into enemas but he is not going to be able water to afford them. He did not tolerate the enemas today. Dr. Cuevas did review his Holter monitor is relatively normal. Please refer to her dictation in eTipping. Review of Systems All systems reviewed & are unremarkable except as noted in HPI and below PFSH All Active Problems Nausea (Acute) Bilateral inguinal hernia (Acute) Laceration of finger of left hand (Acute) Laceration volar fingertip left middle finger Date of injury: 04/26/18 Fracture of distal phalanx of finger of left hand (Acute) Asymptomatic fracture of the distal phalanx of the left ring finger Date of injury: 04/26/[address] (Acute) Psoriasis (Chronic) Depression with anxiety (Acute) Hypertension (Chronic) Chronic recurrent pilonidal cyst (Acute) Ulcerative colitis (Chronic) Asthma, moderate persistent (Acute) Degenerative joint disease (DJD) of lumbar spine (Acute) Bronchitis, obstructive, chronic (Acute) Environmental allergies (Acute) Hypogonadism, male (Acute) Bilateral inguinal hernia (Acute) Medical History A-fib Enteritis Former smoker Hyperlipidemia PTSD (post-traumatic stress disorder) SVT (supraventricular tachycardia) Ulcerative proctitis Surgical History H/O cardiac radiofrequency ablation H/O hernia repair (~01/2020) [facility] around ileostomy H/O total colectomy History of back surgery 2 rods, 4 screws, L4-5 2006 [place], [place] Social History Smoking/Tobacco Use Status: Former Tobacco Use Quit Date: 06/02/06 Smoking risk assessment performed?: Yes Alcohol Intake: former Drug use: Never Substance use type: does not use Do you feel safe in your relationship?: Yes Meds Allergies and Home Medications Allergies Allergy/AdvReac Type Severity Reaction Status Date / Time ibuprofen Allergy Severe tongue Verified 09/10/22 07:36 swelling NSAIDS (Non-Steroidal Allergy Severe Anaphylaxis Unverified 09/10/22 08:27 Anti-Inflamma bupropion [From Wellbutrin] AdvReac Severe suicidal Verified 09/10/22 07:36 thoughts zolpidem [From Ambien] AdvReac Severe sleep Verified 09/10/22 07:36 walk/drive atenolol AdvReac Unknown amnesia Verified 09/10/22 07:36 Home Medications Medication Instructions Recorded Confirmed Type cholecalciferol (vitamin D3) 25 25 mcg PO DAILY 04/29/22 09/10/22 History mcg (1,000 unit) capsule coenzyme Q10 100 mg capsule (Co 100 mg PO DAILY 04/29/22 09/10/22 History Q-10) magnesium carb,citrate,oxide 300 mg PO DAILY 04/29/22 09/10/22 History omega 2-lap-mcg-fish oil 300 1 cap PO DAILY 04/29/22 09/10/22 History mg-1,000 mg capsule (Fish Oil) vitamin B complex 1 cap PO DAILY 04/29/22 09/10/22 History potassium chloride 20 mEq 20 meq PO DAILY 05/07/22 09/10/22 History tablet,extended release albuterol sulfate 90 mcg/actuation 2 inh inhalation TID 06/05/22 09/10/22 History aerosol inhaler fluticasone 250 mcg-salmeterol 50 1 inh inhalation BID 08/17/22 09/10/22 History mcg/dose blistr powdr for inhalation (Advair Diskus) ondansetron 4 mg disintegrating 4 mg PO Q6H PRN nausea and 08/17/22 09/10/22 Rx tablet vomiting #10 tabs CBD oil PO/SL 08/23/22 09/04/22 History Exam Const Other: PHYSICAL EXAM GENERAL APPEARANCE: Alert, healthy appearance, oriented, x 3,? in no acute distress HEAD, EYES, EARS, NECK, THROAT: Head is normocephalic, pupils equal, round, reactive to light and accommodation, ocular movement intact, sclera clear and no jaundice. ?dentition is poor NECK: Trachea midline.? Neck supple.? No JVD LUNGS: normal respiration/normal chest excursion. ?Clear to auscultation bilaterally. ?No wheeze. ?HEART: Regular rate and rhythm. no murmurs see Holter monitor results. Normal sinus today. ABDOMEN: soft and non-tender to palpation.? Normal bowel sounds.? Ileostomy Results Last Vital Signs Temp 36.5 C 09/10/22 07:25 Pulse 71 09/10/22 07:25 Resp 16 09/10/22 07:25 BP 123/96 H 09/10/22 07:25 Pulse Ox 97 09/10/22 07:25 Time Spent Time spent with Patient: <40 minutes Time was spent: preparing to see the patient(eg.review tests), obtaining and/or reviewing separately otained hiistory, ordering medications,tests, procedures, referring, communicating with other health critical care nurse specialist, indepentently interpreting results, counseling the patient and care coordination
--- NOTE | 2022-09-10 09:47 | BOWEL_PTH ---
PATIENT: Mic Argueta LOC: [facility] U#:[id number] AGE/SX: 52/M ROOM: RE09/10/[address]: Shelli Lang : 1970 BED: DIS: 09/10/2022 SPEC #: [id number] RECD: 09/10/22 12:38 STATUS: JENISE REQ #: [id number] ELENI: 09/10/22 09:[address]: Shelli Lang DEPT: Surgical Specimen RECD BY: Alka Goodrich ENTERED: 09/10/22 12:39 SP TYPE: Bowel OTHR DR: Lisa Mayorga V Tissues: 1 - BIOPSY BOWEL Procedures: GROSS AND MICRO LEVEL 4 Comments: [id number]
[2022-09-10 09:58] VITALS: BP 134/95; PULSE 78; RESP 14; TEMP 36.4; O2SAT 96
--- NOTE | 2022-09-10 10:06 | W.ANESPOSTOP ---
Postoperative Evaluation Date, Time and Location Date Performed: 09/10/22 Time Performed: 10:06 Patient Location: Day Surgery Unit Vital Signs Most Recent Imported Vital Signs: Most Recent Vital Signs Temp Pulse Resp BP Pulse Ox 36.4 C L 78 14 134/95 H 96 09/10/22 09:58 09/10/22 09:58 09/10/22 09:58 09/10/22 09:58 09/10/22 09:58 Pain Score Most Recent Pain Score: Most Recent Pain Score Pain Level 0 09/10/22 09:58 Assessment Mental Status: Awake (Alert & Oriented to Patient Baseline) Airway and Respiratory Function: Patent airway with normal (patient baseline) respiratory exam Cardiovascular Function: Hemodynamically Stable Hydration Status: Adequately Hydrated Nausea & Vomiting: No Nausea or Vomiting Pain: Pt. Denies Any Pain Peripheral Nerve Block: Patient did not receive a nerve block
--- NOTE | 2022-09-10 10:16 | NUR.NOTE ---
09/10/22 @ 8:15am pt completed second Fleet enema. Pt reported to this RN that there was some bleeding post enema. Dr. Lang verbally informed by this RN. [employer] MATTHEW Jacques verbally informed at handover from Baldomero Jones RN.
[2022-09-10 10:35] VITALS: BP 141/104; PULSE 73; RESP 18; TEMP 36.5; O2SAT 97
--- NOTE | 2022-09-10 10:52 | W.COLOREPORT ---
Date of service: 09/10/22 Time of Service: 10:52 Colonoscopy Report Date of procedure: 09/10/22 Pre-op diagnosis general: Rectal bleeding and rectal pain/UC/subtotal colectomy Post-op diagnosis procedure note: other (Severe proctitis) Procedure: Flexible Sigg with biopsies Surgeon: Shelli Lang Anesthesia Type: General:No Airway Estimated blood loss (mL): 5 Pathology: other Complications: None Disposition: same day Prep: Other (Fleets enemas) Procedure Description: Patient has a history of ulcerative colitis. Approximately 8 or 9 years ago he had toxic megacolon and underwent subtotal colectomy with diverting ileostomy. At that time he had been considering doing a functional J-pouch. He never ended up having the pouch placed. At this point he is also experiencing incontinence. He also has not been having surveillance endoscopies on the rectum. Currently he is having severe pain and rectal bleeding. It is surmised that this is from dye version and disuse. He is here today for direct visualization and biopsy. He did do fleets enemas in preop. He had significant pain and bleeding with the enemas. After informed consent was obtained the patient was taken to the procedure room and placed in a left decubitous position. Monitors were applied and a time out was done. The patients name, date of , procedure, allergies to medications and metal in their body was reviewed. The patient was then sedated. Once sedated and comfortable a rectal exam was done. External exam was normal. Internal exam revealed a normal sphincter tone and no palpable masses. The scope was then introduced and retrofelexed. No internal hemorrhoids were identified. The scope was then advanced to the into the rectum. He has less then 5 cm of the rectum. There is either a diverticulum at the staple line, or he does still have his entire rectum, but higher rectum has strictured down. He does have severe erythema and hemorrhagic proctitis. There are no discrete ulcers or active bleeding. Multiple biopsies are taken. The tissue is extremely friable and bleeds readily on contact. The rectum was packed with Gelfoam postprocedure. The scope was removed and the patient was woken up and taken back to Same day surgery in stable condition. The patient tolerated the procedure well and there were no immediate complications. I discussed the findings today with the patient and his . He again he states he is having incontinence from the rectum. He has no longer interested in having any type of pouch system and is learned to live his life with the ileostomy. Given the complications he is having with pain and bleeding/chronic proctitis and the risk of cancer, I think he would be best served by just having the rectum removed. We briefly touched on the surgery and the biggest complication will be getting the wound to heal. Patient would like a referral to colorectal at [facility] to discuss this and I will place this. In the interim we discussed Medications that we can try to use to get this under better control for him. He unfortunately cannot afford the medium chain fatty acid enemas. He also has a anaphylactic reaction to NSAIDs, so using 5-ASA products are probably not a good option for him either. We discussed using Donny enemas. The patient states he would rather no longer use enemas because it is very painful to insert and administrate them. He would rather go with steroid suppositories at this point. He will follow-up with Dr. Langford from the clinic in 2 to 3 weeks. Dir
== END 2022-09-10 11:25 | disposition home or self-care (01) ==
PROVIDERS: PCP Family Medicine; Visit Provider Surgery
PROC: 0DJD8ZZ Inspection of Lower Intestinal Tract, Via Natural or Artificial Opening Endoscopic (ICD-10-PCS; CPT 45330; principal; 2022-09-10 08:15)
DX: K51.212 Ulcerative (chronic) proctitis with intestinal obstruction (principal); Z93.2 Ileostomy status; R15.9 Full incontinence of feces
CPT/HCPCS: 45331; 88305; J2704

== ENCOUNTER 2022-09-10 07:39 | Outpatient (CLI) | payer MEDICARE, SELFPAY ==
--- NOTE | 2022-09-10 08:25 | W.CARDEVENT ---
Date of service: 09/10/22 Time of Service: 08:25 Cardiac Event Recorder Referring Provider:: Lisa Mayorga Indications:: Hypertension Cardiac Event Note: This is a 14-day cardiac event monitor ordered for hypertension Predominant rhythm was sinus with an average heart rate of 90. Minimum was 51, maximum 180 There are very rare ventricular ectopic beats, couplets and 1 triplet There were occasional atrial premature beats A total of 35 self-limited atrial runs occurred. The majority of these were less than 6 beats in duration There was no atrial fibrillation, no high-grade AV block, no pauses greater than 3 seconds Patient symptoms were reported which had no correlation to any dysrhythmia
== END 2022-09-10 07:40 | disposition home or self-care (01) ==
PROVIDERS: PCP Family Medicine; Visit Provider Internal Medicine Cardiovascular Disease
DX: I49.1 Atrial premature depolarization (principal); I10 Essential (primary) hypertension
CPT/HCPCS: 93248

== ENCOUNTER 2022-09-18 16:27 | Outpatient (REF) | payer MEDICARE, SELFPAY | END 2022-09-18 16:28 | disposition home or self-care (01) | LOC: LBN 16:27 | PROVIDERS: PCP Family Medicine; Visit Provider Physician Assistant Medical | DX: J02.9 Acute pharyngitis, unspecified (principal) | CPT/HCPCS: 87070 ==

== ENCOUNTER 2022-09-26 08:10 | Outpatient (CLI) | payer MEDICARE, SELFPAY ==
--- NOTE | 2022-09-26 08:00 | RT.EKG_ITS ---
APPROVED REPORT Exam: Resting ECG Reason for Exam: PAC's, hx of afib Patient Location: O HR:75 bpm ECG Measurements Heart Rate 75 AXIS MT 144 P 41 QRSd 81 QRS 54 QT 352 T 45 QTc 394 Conclusion Sinus rhythm...normal P axis, V-rate 50- 99 Borderline LVH voltage
== END 2022-09-26 08:11 | disposition home or self-care (01) ==
LOC: DI.CARD 08:15
PROVIDERS: PCP Family Medicine; Visit Provider Internal Medicine Cardiovascular Disease
DX: I49.1 Atrial premature depolarization (principal); Z86.79 Personal history of other diseases of the circulatory system
CPT/HCPCS: 93010

== ENCOUNTER → 2022-09-26 13:43 | Outpatient (BNVA) | payer MEDICARE, SELFPAY | PROVIDERS: PCP Family Medicine; Referring Provider Family Medicine; Visit Provider Internal Medicine Cardiovascular Disease | DX: R00.0 Tachycardia, unspecified (principal); I10 Essential (primary) hypertension; Z86.79 Personal history of other diseases of the circulatory system | CPT/HCPCS: 93005; 99203; 99214 ==

== ENCOUNTER → 2022-10-02 10:29 | Outpatient (BNVA) | payer MEDICARE, SELFPAY | PROVIDERS: PCP Family Medicine; Referring Provider Family Medicine; Visit Provider Surgery | DX: K51.212 Ulcerative (chronic) proctitis with intestinal obstruction (principal) | CPT/HCPCS: 99213 ==

== ENCOUNTER 2022-11-26 00:37 | Outpatient (CLI) | payer MEDICARE, SELFPAY ==
--- NOTE | 2022-11-26 08:00 | DI.US_ITS ---
APPROVED REPORT EXAM: Stress Echocardiogram Stress Nurse: Sharmaine Brizuela RN Ordering Provider: MARIANA HENSON, Contact Number: HR: 88 bpm BP: 142/74 mmHg Rhythm: NSR, Bigeminal patterns, frequent PAC's Indications: Tachycardia w/ exertion, DORMAN Medical History Medical History: TAchycardia, afib s/p ablation x2, HTN, depression, Anxiety, Asthma, DJD, ulcerative colitis w/ ileostomy, HLD, PTSD Medications: Albuterol and Advair Allergies: Ibuprofen, NSAIDS, Wellbutrin, Ambien, Atenolol Cardiac Risk Factors: +family history, HTN, HLD former smoker who quit in 2007 Previous Cardiac Procedures: Atrial fibrillation Ablation x2 Pretest Chest Pain Characteristics: None Exercise History: Indeterminate Physical Disabilities: None Stress Test Details Test: Exercise stress testing was performed using a Jeyson protocol. Rest Stress HR Resting HR Supine: 88 bpm Max Heart Rate (APMHR): 167 bpm Resting HR Standin bpm Target HR (85% APMHR): 142 bpm Max HR Achieved: 156 bpm % of APMHR: 93 Recovery HR: 90 bpm HR response to stress: Normal HR response to stress BP Resting BP Supine: 142/74 mmHg Resting BP Standin/98 mmHg Max BP: 204/100 mmHg Recovery BP: 140/82 mmHg BP response to stress: Normal blood pressure response to stress. ECG Resting ECG: Sinus Rhythm Ectopy: Frequent PAC's w/ intermittent bigeminal pattern Stress ECG: Sinus Tachycardia ST Change: No significant ST segment changes noted Arrhythmia: Rare PVC Recovery ECG: Sinus Rhythm Recovery ST Change: No significant ST segment changes noted Recovery Arrhythmia: Rare PVC, Frequent PAC's w/ bigeminal pattern Clinical Reason for Termination: Target HR Achieved Stress Symptoms: None Exercise duration: 5 min52 sec Highest Stage Reached: Stage 2: 2.5 mph at 12% grade. Exercise capacity: 7.05 METs Angina Score: None Blas Treadmill Score: 5 Rate Pressure Product: [id number] Stress ECG Conclusion 1. Resting electrocardiogram showed sinus rhythm with atrial premature beats, voltage for left ventri cular hypertrophy 2. With exercise patient almost immediately developed supraventricular tachycardia rate approximately 150 3. The electrocardiographic portion of the test was negative for myocardial ischemia 4. By minute 1 of recovery, SVT had resolved, sinus rhythm with atrial premature beats was again pres ent 5. Resting echocardiogram showed normal left ventricular systolic function, EF 60%. At peak exercise ejection fraction was greater than or equal to 75% with augmented contractility of all segments, no evidence of myocardial ischemia Blas Treadmill Score is 5 which is Low risk. Stress Test Summary STAGE Time (mins) Speed (mph) Grade (%) HR BP SYMPTOMS METS Supine 88 142/74 Standing 94 148/98 1 3 1.7 10 138 172/92 4.6 2 6 2.5 12 154 204/100 7 1 min recovery 103 164/82 3 min recovery 97 152/98 6 min recovery 88 140/82 Patient did not report any symptoms before, during, or after test. Patient technically only exercised in stage 1 of the Jeyson protocol for 1 minute and 45 seconds as opposed to 3 mintues due to a treadm ill communication error and went into the next stages of the test appropriately, completing nearly al l of stage 2 before moving to recovery and the stretcher for stress ultra sound images. Tolerated steven t well. Echo Findings The Pre-Stress Echocardiogram showed normal left ventricular contractility with an estimated Ejection Fraction of about 60%. The Peak-Stress Echocardiogram showed normal left ventricular contractility with an estimated Ejectio n Fraction of about 75%. Conclusion Resting electrocardiogram showed sinus rhythm with atrial premature beats, voltage for left ventricul ar hypertrophy With exercise patient almost immediately developed supraventricular tachycardia rate approximately 15 0 The electrocardiographic portion of the test was negative for myocardial ischemia By minute 1 of recovery, SVT had resolved, sinus rhythm with atrial premature beats was again present Resting echocardiogram showed normal left ventricular systolic function, EF 60%. At peak exercise ej ection fraction was greater than or equal to 75% with augmented contractility of all segments, no haroon dence of myocardial ischemia Plain Blas Treadmill Score is 5 which is Low risk.
== END 2022-11-26 00:57 ==
PROVIDERS: PCP Family Medicine; Visit Provider Internal Medicine Cardiovascular Disease
DX: I10 Essential (primary) hypertension (principal); R00.0 Tachycardia, unspecified; Z86.79 Personal history of other diseases of the circulatory system
CPT/HCPCS: 93306; 93350; 93017

== ENCOUNTER 2023-01-23 14:15 | Emergency (ER) | payer MEDICARE, SELFPAY ==
[2023-01-23 14:20] VITALS: BP 162/103; PULSE 100; RESP 18; TEMP 37.1; O2SAT 96
--- NOTE | 2023-01-23 14:30 | DI.RAD_ITS ---
Exam(s) XR HAND LT COMPLETE EXAM: XR HAND LT COMPLETE CLINICAL HISTORY: pain, nail gun puncture 1st webspace, ttp MC 1+2. TECHNIQUE: 2D digital imaging was performed. COMPARISON: CR XR hand LT complete from 04/26/2018 FINDINGS: 3 views No evidence of fracture nor dislocation. No evidence of radiopaque body. No osseous lesions nor ero sions. IMPRESSION: No significant osseous findings left hand no significant change compared to images of April 2018. DATA REPOSITORY: RADIATION DOSE DELIVERED:
--- NOTE | 2023-01-23 15:41 | W.ED.GENAD ---
Discharge Plan Disposition Patient Disposition: Home Condition: Stable Discharge Details Clinical Impression: Injury by nail gun, Puncture wound of hand, left, Elevated blood pressure reading Primary Care Provider: Lisa Mayorga V ED Provider: Ayden Bates Home Meds and New Rx's Prescriptions: New cephalexin 500 mg capsule 500 mg PO TID Qty: 9 0RF Continued potassium chloride 20 mEq tablet extended release 20 meq PO DAILY magnesium carb,citrate,oxide 300 mg magnesium tablet 300 mg PO DAILY vitamin B complex Capsule 1 cap PO DAILY omega 4-vta-rtj-fish oil [Fish Oil] 300-1,000 mg capsule 1 cap PO DAILY coenzyme Q10 [Co Q-10] 100 mg capsule 100 mg PO DAILY cholecalciferol (vitamin D3) 25 mcg (1,000 unit) capsule 25 mcg PO DAILY CBD oil 16 mg drops PO/SL albuterol sulfate 90 mcg/actuation HFA aerosol inhaler 2 inh INHALATION TID Patient Comments: INHALE 2 PUFFS BY MOUTH EVERY 4 HOURS NEEDED fluticasone propion-salmeterol [Advair Diskus] 250-50 mcg/dose blister with device 1 inh INHALATION BID Patient Comments: Inhale 1 puff by mouth twice a day Discharge Instructions Instructions: Cephalexin (By mouth), Puncture Wound (ED) Additional Instructions: Please keep arm elevated as much as possible to reduce swelling. Take Keflex pill tonight before bed and then continue to take antibiotic as prescribed. Please follow-up with orthopedics January 27 at 8:45 AM. Your blood pressure was elevated today. Please be sure to discuss this with your doctor. Please contact your primary care physician to arrange follow-up. Return to the ER immediately for any worsening or new concerning symptoms including worsening pain or swelling. Referrals: Wililam Carbajal MD [ [facility] STAFF PHYSICIAN] - Discharge Data Discharge Date/Time-TO BE ENTERED AT DEPARTURE: 01/23/23 16:14 Medical Decision Making 53-year-old male here after nail gun injury to left thenar eminence. Patient is neurovascular intact distally. He is able to range his thumb but has discomfort. There is mild to moderate swelling of the thenar eminence present. Puncture wound with no active bleeding. X-ray of the hand was reviewed and interpreted by radiology: No significant osseous findings left hand no significant change compared to images of April 2018. Wound care provided by nursing. Tetanus up-to-date. I spoke with Dr. Carbajal, discussed ED presentation course, he recommends outpatient follow-up. Usual customary discharge instructions were reviewed with the patient. He understands importance of follow-up with orthopedic surgery. Patient was informed of elevated blood pressure and instructed to follow-up with his primary care physician. HPI General Mode of arrival: ambulatory. Date/Time Provider Initiated Documentation: 01/23/23 14:25. Limitations to Documentation: no limitations. Information obtained by: patient. HPI Narrative: 53yo presents with chief complaint of nail gun injury. Patient states excellently shot a nail through a board into his left hand at around 11 AM. He did pull the nail out. States he has some pain and swelling and discomfort when ranging his thumb. Related Data Home Medications Medication Instructions Recorded Confirmed cholecalciferol (vitamin D3) 25 25 mcg PO DAILY 04/29/22 01/23/23 mcg (1,000 unit) capsule coenzyme Q10 100 mg capsule (Co 100 mg PO DAILY 04/29/22 01/23/23 Q-10) magnesium carb,citrate,oxide 300 mg PO DAILY 04/29/22 01/23/23 omega 0-zyy-qkc-fish oil 300 1 cap PO DAILY 04/29/22 01/23/23 mg-1,000 mg capsule (Fish Oil) vitamin B complex 1 cap PO DAILY 04/29/22 01/23/23 potassium chloride 20 mEq 20 meq PO DAILY 05/07/22 01/23/23 tablet,extended release albuterol sulfate 90 mcg/actuation 2 inh inhalation TID 06/05/22 01/23/23 aerosol inhaler fluticasone 250 mcg-salmeterol 50 1 inh inhalation BID 08/17/22 01/23/23 mcg/dose blistr powdr for inhalation (Advair Diskus) CBD oil PO/SL 08/23/22 10/02/22 cephalexin 500 mg capsule 500 mg PO TID #9 caps 01/23/23 Previous Rx's Medication Instructions Recorded cephalexin 500 mg capsule 500 mg PO TID #9 caps 01/23/23 Allergies Allergy/AdvReac Type Severity Reaction Status Date / Time ibuprofen Allergy Severe tongue Verified 01/23/23 14:24 swelling NSAIDS (Non-Steroidal Allergy Severe Anaphylaxis Unverified 01/23/23 14:24 Anti-Inflamma bupropion [From Wellbutrin] AdvReac Severe suicidal Verified 01/23/23 14:24 thoughts zolpidem [From Ambien] AdvReac Severe sleep Verified 01/23/23 14:24 walk/drive atenolol AdvReac Unknown amnesia Verified 01/23/23 14:24 General Stated Complaint: ForeignBody MERLE: 3 Review of Systems Musculoskeletal Musculoskeletal: Reports as per HPI PFSH All Active Problems (Updated 01/23/23 @ 16:08 by Ayden Bates MD) Injury by nail gun (Acute) Puncture wound of hand, left (Acute) Elevated blood pressure reading (Acute) Tachycardia (Acute) History of atrial fibrillation (Acute) has had ablation Proctitis (Acute) disuse/diversion proctitis Hx of ulcerative colitis (Acute) Bilateral inguinal hernia (Acute) Laceration of finger of left hand (Acute) Laceration volar fingertip left middle finger Date of injury: 04/26/18 Fracture of distal phalanx of finger of left hand (Acute) Asymptomatic fracture of the distal phalanx of the left ring finger Date of injury: 04/26/[address] (Acute) Psoriasis (Chronic) Depression with anxiety (Acute) Hypertension (Chronic) Chronic recurrent pilonidal cyst (Acute) Asthma, moderate persistent (Acute) Degenerative joint disease (DJD) of lumbar spine (Acute) Bronchitis, obstructive, chronic (Acute) Environmental allergies (Acute) Hypogonadism, male (Acute) Bilateral inguinal hernia (Acute) Medical History Enteritis Former smoker Hyperlipidemia PTSD (post-traumatic stress disorder) SVT (supraventricular tachycardia) Ulcerative proctitis Surgical History H/O cardiac radiofrequency ablation H/O hernia repair (~01/2020) [facility] around ileostomy H/O total colectomy History of back surgery 2 rods, 4 screws, L4-5 2006 [place], [place] Social History Smoking/Tobacco Use Status: Former Tobacco Use Quit Date: 06/02/06 Smoking risk assessment performed?: Yes Alcohol Intake: former Drug use: Never Substance use type: does not use Housing: house Current gender identity: male Do you feel safe in your relationship?: Yes Exam Const General: cooperative and no acute distress Extrem Left upper extremity: hand Details: normal capillary refill, neuromotor exam normal, neurosensory exam normal and other (Swelling of thenar eminence with puncture wound, no active bleeding. Swelling is mild to moderate with no tense skin. He is able to range his thumb but has discomfort. No associated numbness or tingling.); no crepitus and no foreign bodies Course Vital Signs Vital signs: Vital Signs Temperature 37.1 C 01/23/23 14:20 Pulse 100 H 01/23/23 14:20 Respiratory Rate 18 01/23/23 14:20 Blood Pressure 162/103 H 01/23/23 14:20 Pulse Oximetry 96 01/23/23 14:20 Temperature 37.1 C 01/23/23 14:20 Temperature Source Temporal Artery Scan 01/23/23 14:20 Pulse 100 H 01/23/23 14:20 Respiratory Rate 18 01/23/23 14:20 Respiratory Effort Normal 01/23/23 14:25 Respiratory Pattern Normal 01/23/23 14:25 Blood Pressure 162/103 H 01/23/23 14:20 Pulse Oximetry 96 01/23/23 14:20 Pain Level 4 01/23/23 14:20
[2023-01-23] MEDS: Cephalexin 500 MG CAP PO ×2 (16:05→16:12)
[2023-01-23 16:11] VITALS: BP 153/117; PULSE 84; RESP 18; TEMP 36.8; O2SAT 99
== END 2023-01-23 16:14 | disposition home or self-care (01) ==
PROVIDERS: Emergency Provider Student in an Organized Health Care Education/Training Program; PCP Family Medicine
DX: S61.432A Puncture wound without foreign body of left hand, initial encounter (principal); W29.4XXA Contact with nail gun, initial encounter; R03.0 Elevated blood-pressure reading, without diagnosis of hypertension
CPT/HCPCS: 99283; 73130; 99284

== ENCOUNTER → 2023-07-07 10:36 | Outpatient (BNVA) | payer MEDICARE, SELFPAY | PROVIDERS: PCP Family Medicine; Referring Provider Family Medicine; Visit Provider Nurse Practitioner Gerontology ==

== ENCOUNTER 2023-07-07 12:16 | Outpatient (CLI) | payer MEDICARE, SELFPAY ==
[2023-07-07 12:37] LABS: BUN 13 mg/dL (7-18); Estimated GFR 89.44 (mL/min/1.73m2)
[2023-07-08 09:08] LABS: PSA, Diagnostic 0.9 ng/mL (<=3.5)
== END 2023-07-07 12:17 | disposition home or self-care (01) ==
LOC: LBO 12:17
PROVIDERS: PCP Family Medicine; Visit Provider Nurse Practitioner Gerontology
DX: R33.8 Other retention of urine (principal)
CPT/HCPCS: 36415; 51798; 81003; 84520; 99215; 82565; 84153

== ENCOUNTER → 2023-07-08 01:23 | Outpatient (CLI) | payer MEDICARE, SELFPAY ==
--- OUTSIDE RECORDS SUMMARY | 2023-07-08 01:24 | XMS_ITS | Continuity of Care Document ---
Author Name Unknown Organization [facility] Address [address] [place] [address] Encounter LTTL_[place] FIN NBR [id number] Date(s): 03/22/23 - 03/22/23 [facility] [address] [place], [place] [address] Encounter Diagnosis Postoperative fever(Discharge Diagnosis) - 03/22/23 Postoperative ileus(Discharge Diagnosis) - 03/22/23 Ileus, unspecified(Discharge Diagnosis) - 03/22/23 Discharge Disposition: Transfer to Higher Level of Care Attending Physician: Mahad Perales MD Admitting Physician: Mahad Perales MD Allergies, Adverse Reactions, Alerts Substance Reaction Severity Status NSAIDs Mild Active Assessment and Plan Diagnostic Tests Pending * Blood Culture 03/22/23 * Urine Culture 03/22/23 Medications HYDROmorphone 2 mg oral tablet 2 mg = 1 tab, Oral, every 4 hr, PRN as needed for pain, 0 Refill(s) Start Date: 03/22/23 Status: Ordered Results Laboratory List Name Date Urinalysis Microscopic 03/22/23 Urinalysis with Micro if Indicated and C ulture if Indicated 03/22/23 D-Dimer 03/22/23 .Manual Differential (LTTL) 03/22/23 CBC w/ Diff 03/22/23 Comprehensive Metabolic Panel (CMP) 03/03 06/24 Lactic Acid 03/22/23 SARS-CoV-2 (Covid-19) AG (Loly) POCT Most recent to oldest [Reference Range]: 1 WBC [4.8-10.8 K/mcL] 7.7 K/mcL (03/22/23 2:55 PM) RBC [4.70-6.10 Million/mcL] 4.82 Million /mcL (03/22/23 2:55 PM) Segs Man 85 *NA* (03/22/23 2:55 PM) Lymph Man [20.5-51.1 %] 7.0 % *LOW* (03/22/23 2:55 PM) Reeves Man [1.7-9.3 %] 7.0 % (03/22/23 2:55 PM) Eos Man [0.00-3.00 %] 1.00 % (03/22/23 2:55 PM) BUN [8-26 mg/dL] 15 mg/dL (03/22/23 2:55 PM) UA Color [Yellow] Yellow (03/22/23 5:02 PM) UA WBC [0-3] 0-3 (03/22/23 5:02 PM) Glucose Level [74-106 mg/dL] 123 mg/dL *HI* (03/22/23 2:55 PM) Potassium Level [3.5-5.1 mmol/L] 4.0 mmo l/L (03/22/23 2:55 PM) MCV [80.0-94.0 fL] 82.4 fL (03/22/23 2:55 PM) UA Urobilinogen [0.2] 0.2 (03/22/23 5:02 PM) RBC Morph [Normal] Normal (03/22/23 2:55 PM) UA Bili [Negative] Negative (03/22/23 5:02 PM) UA Ketones [Negative] Trace *ABN* (03/22/23 5:02 PM) AST [15-41 IntlUnit/L] 26 IntlUnit/L (03/22/23 2:55 PM) ALT [17-63 IntlUnit/L] 23 IntlUnit/L (03/22/23 2:55 PM) MCHC [32.0-37.0 g/dL] 34.8 g/dL (03/22/23 2:55 PM) Osmolality [275-295 mOsm/kg] 261 mOsm/kg *LOW* (03/22/23 2:55 PM) Sodium Level [134-143 mmol/L] 129 mmol/L *LOW* (03/22/23 2:55 PM) UA RBC [0-3] 25-50 *ABN* (03/22/23 5:02 PM) UA Leuk Est [Negative] Negative (03/22/23 5:02 PM) UA Nitrite [Negative] Negative (03/22/23 5:02 PM) UA Glucose [Negative] Negative (03/22/23 5:02 PM) Hct [42.0-52.0 %] 39.7 % *LOW* (03/22/23 2:55 PM) Calcium Level [8.9-10.3 mg/dL] 8.9 mg/dL (03/22/23 2:55 PM) Albumin Level [3.5-5.0 g/dL] 3.7 g/dL (03/22/23 2:55 PM) Protein Total [6.5-8.1 g/dL] 7.6 g/dL (03/22/23 2:55 PM) UA Protein [Negative] Trace *ABN* (03/22/23 5:02 PM) MCH [27.0-31.0 pg] 28.6 pg (03/22/23 2:55 PM) Bilirubin Total [0.2-1.2 mg/dL] 1.5 mg/d L *HI* (03/22/23 2:55 PM) Hgb [14.0-18.0 g/dL] 13.8 g/dL *LOW* (03/22/23 2:55 PM) Alk Phos [38-130 IntlUnit/L] 42 IntlUnit /L (03/22/23 2:55 PM) UA Blood [Negative] Moderate *ABN* (03/22/23 5:02 PM) MPV [7.4-10.4 fL] 9.0 fL (03/22/23 2:55 PM) UA Mucous [None Seen] Present *ABN* (03/22/23 5:02 PM) Band Man 0 % *NA* (03/22/23 2:55 PM) UA Spec Grav [1.001-1.030] 1.010 (03/22/23 5:02 PM) Platelets [130-400 K/mcL] 258 K/mcL (03/22/23 2:55 PM) CO2 [22-32 mmol/L] 21 mmol/L *LOW* (03/22/23 2:55 PM) Lactic Acid Lvl [0.5-2.2 mmol/L] 1.2 mmo l/L (03/22/23 2:55 PM) UA pH [5.00-9.00] 6.50 (03/22/23 5:02 PM) UA Appear [Clear] Clear (03/22/23 5:02 PM) Chloride Level [98-111 mmol/L] 98 mmol/L (03/22/23 2:55 PM) RDW-CV [11.5-14.5 %] 12.1 % (03/22/23 2:55 PM) A/G Ratio [1.0-2.5 g/dL] 0.9 g/dL *LOW* (03/22/23 2:55 PM) BUN/Creat Ratio [8.0-20.0] 16.1 (03/22/23 2:55 PM) Globulin [2.3-3.5 g/dL] 3.9 g/dL *HI* (03/22/23 2:55 PM) Slide Review Man Diff (03/22/23 2:55 PM) UA Culture Ind?. [No] Yes (03/22/23 5:02 PM) Urine Srce Clean Catch (03/22/23 5:02 PM) Abs Baso Man [0.0-0.2 K/mcL] 0.0 K/mcL (03/22/23 2:55 PM) Abs Eos Man [0.0-0.2 K/mcL] 0.1 K/mcL (03/22/23 2:55 PM) Abs Lymph Man [1.2-3.4 K/mcL] 0.5 K/mcL *LOW* (03/22/23 2:55 PM) Abs Reeves Man [0.1-0.6 K/mcL] 0.5 K/mcL (03/22/23 2:55 PM) Abs Neut Man [1.4-6.5 K/mcL] 6.5 K/mcL (03/22/23 2:55 PM) Creatinine Level [0.61-1.24 mg/dL] 0.93 mg/dL (03/22/23 2:55 PM) Plt Estimation Normal (03/22/23 2:55 PM) SARS-CoV or CoV-2 (COVID-19) Ag (Loly) [Negative] Negative (03/22/23 2:00 PM) Employed in healthcare? Unknown *NA* (03/22/23 2:00 PM) Symptomatic as defined by CDC? Unknown *NA* (03/22/23 2:00 PM) Date of onset (Lab) Unknown *NA* (03/22/23 2:00 PM) Hospitalized due to COVID-19? Unknown *NA* (03/22/23 2:00 PM) In ICU? Unknown *NA* (03/22/23 2:00 PM) Group care resident? Unknown *NA* (03/22/23 2:00 PM) status? Unknown *NA* (03/22/23 2:00 PM) Anion Gap [3.0-12.0] 10.0 (03/22/23 2:55 PM) Baso Man [0.0-0.8 %] 0.0 % (03/22/23 2:55 PM) D Dimer, (Quant.) [<=500 ng/mL] 936 ng/m L 1 *HI* (03/22/23 3:16 PM) eGFR CKD-EPI [>=60 mL/min/1.73 m2] 98 mL /min/1.73 m2 (03/22/23 2:55 PM) 1Interpretive Data: A normal D-dimer result (< or =500 ng/mL FEU) has a negative predicitive value of approximately 95% for the exclusion of acute embolism (PE) or deep vein thrombosis when there is low or moderate pretest PE probability. Orders for Microbiology Reports Name Date Blood Culture 03/22/23 Microbiology Reports TEST:Blood Culture STATUS:Order in Progress BODY SITE:Left Arm SOURCE:Blood COLLECTED DATE/TIME:03/22/23 2:55 PM PRELIMINARY REPORT Staphylococcus aureus detected by PCR Called to and read back by Karon Muñoz 03/23/2023 at 0600/rp STAIN REPORT Positive 12-24 hours Gram positive cocci in clumps resembling Staph. sp. In 2 of 2 bottles Called to and read back by Karon Muñoz 03/23/2023 at 0600/rp Radiology Reports * Exam Date Time Procedure Performing Provider Status 03/22/23 4:40 PM XR Chest 2 Views Ashley Horne; Auth (Verified) Notes: (XR Chest 2 Views) Reason For Exam: post surgical fever;Chest pain XR Chest 2 Views PROCEDURE INFORMATION: Exam: XR Chest Exam date and time: 03/22/2023 4:33 PM Age: 53 years old Clinical indication: Pain; Angina pectoris; Additional info: Chest pain TECHNIQUE: Imaging protocol: Radiologic exam of the chest. Views: 2 views. COMPARISON: No relevant prior studies available. FINDINGS: Lungs: The lung john are clear. No focal infiltrate. Pleural spaces: No pleural effusion. Heart/Mediastinum: No cardiac enlargement. Bones/joints: There is no acute osseous abnormality. IMPRESSION: No acute findings. THIS DOCUMENT HAS BEEN ELECTRONICALLY SIGNED BY SIMIN MONTERO MD on 03/22/2023 05:25 PM Final Signed by: Simin Montero MD Signed (Electronic Signature): 03/22/2023 5:25 pm * Exam Date Time Procedure Performing Provider Status 03/22/23 3:[address] Abdomen and Pelvi s w/ Contrast Karissa Posada; Auth (Verified) Notes: (CT Abdomen and Pelvis w/ Contrast) Reason For Exam: abd pain CT Abdomen and Pelvis w/ Contrast PROCEDURE INFORMATION: Exam: CT Abdomen And Pelvis With Contrast Exam date and time: 03/22/2023 3:14 PM Age: 53 years old Clinical indication: Abdominal pain; Generalized; Prior surgery; Surgery date: 3-7 days post-operative; Surgery type: Rectum removal; Additional info: Abd pain TECHNIQUE: Imaging protocol: Computed tomography of the abdomen and pelvis with contrast. Radiation optimization: All CT scans at this facility use at least one of these dose optimization techniques: automated exposure control; mA and/or kV adjustment per patient size (includes targeted exams where dose is matched to clinical indication); or iterative reconstruction. Contrast material: [id number]; Contrast volume: 100 ml; Contrast route: INTRAVENOUS (IV); REPORTING DATA: Count of CT and Cardiac NM exams in prior 12 months: This patient has received 0 known CTs and 0 known cardiac nuclear medicine studies in the 12 months prior to the current study. COMPARISON: CT ABD/PELVIS W CONTRAST 02/08/2021 12:46 PM FINDINGS: Limitations: No oral contrast. Limited surgical and medical history. Cancer history is not included. Artifact from indwelling spinal hardware. Tubes, catheters and devices: There is a surgical drain via a right posterior perirectal approach located within the presacral space. Lungs: No focal consolidation at the lung bases. Liver: Within the medial segment of the left hepatic lobe near the falciform ligament, there is regional decreased enhancement/attenuation. This has the appearance of a benign pseudo lesion. This is most commonly secondary to variations in venous drainage. The liver is otherwise unremarkable. Gallbladder and bile ducts: No calcified gallstones. Pancreas: The pancreas is unremarkable. Spleen: The spleen is unremarkable. Adrenal glands: The adrenal glands are unremarkable. Kidneys and ureters: No intrarenal calculi. Small renal hypodensities are too small to adequately characterize. No hydronephrosis. Stomach and bowel: Evaluation of the gut is limited without oral contrast. The patient is status post subtotal colectomy with a right anterior abdominal wall ileostomy. Patient history reports recent resection of the rectum. There is a gastric diverticulum along the gastric fundus. There are dilated, fluid and air-filled small bowel loops on the left. There are differential air-fluid levels. Decompressed small bowel loops are seen juxtaposed to the dilated small bowel loops. Appendix: The appendix is surgically absent. Intraperitoneal space: There is a surgical drain via a right posterior perirectal approach located within the presacral space. There is a complex gas and fluid collection in the presacral space most consistent for recent rectum resection. There is a small amount of intraperitoneal and retroperitoneal free air. The retroperitoneal free air is seen on the left. This is likely due to recent surgery. Vasculature: There is calcification of the aorta and the aortic branches. Lymph nodes: There is no suspicious adenopathy. Urinary bladder: The urinary bladder is decompressed around a Barton catheter, limiting evaluation for bladder wall thickening. A small focus of gas within the bladder is likely secondary to recent instrumentation. Reproductive: Unremarkable as visualized. Bones/joints: The patient has had prior laminectomy and fusion at L5-S1. There is resultant metallic artifact. Soft tissues: There is a right ventral abdominal wall ileostomy. Soft tissue densities are seen within the proximal inguinal regions, new from the prior study, suspicious for interval inguinal hernia repair. Surgical history is not given. IMPRESSION: 1. The patient is status post subtotal colectomy with a right anterior abdominal wall ileostomy. Findings of recent resection of the rectum. 2. There is a surgical drain via a right posterior perirectal approach located within the presacral space. There is a complex gas and fluid collection in the presacral space most consistent for recent rectum resection. There are no prior postsurgical examinations available for comparison. Continued follow-up is recommended. 3. There is a small amount of intraperitoneal and retroperitoneal free air. The retroperitoneal free air is seen on the left. This is likely due to recent surgery. 4. There are dilated, fluid and air-filled small bowel loops on the left. There are differential air-fluid levels. Decompressed small bowel loops are seen juxtaposed to the dilated small bowel loops. This may be secondary postsurgical ileus or small-bowel obstruction. Follow-up is recommended. COMMENTS: Consistent with the [place]'s Incidental Findings Committee white paper (J Am Hema Radiol 2018): Any incidental renal lesion less than 1 cm or classified as too small to characterize, or any incidental cystic renal lesion characterized as simple-appearing, is likely benign. No follow-up imaging is recommended for these lesions per consensus recommendations based on imaging criteria. THIS DOCUMENT HAS BEEN ELECTRONICALLY SIGNED BY SIMIN MONTERO MD on 03/22/2023 04:01 PM Final Signed by: Simin Montero MD Signed (Electronic Signature): 03/22/2023 4:01 pm Vital Signs Most recent to oldest [Reference Range]: 1 2 3 Temperature Oral [35.8-37.3 Deg C] 37.3 Deg C (03/22/23 5:00 PM) 38.2 Deg C *HI* (03/22/23 2:29 PM) Temperature Oral (DegF) [96.4-99.1 Deg F] 99.14 Deg F *HI* (03/22/23 5:00 PM) Peripheral Pulse Rate [60-100 bpm] 107 bpm *HI* (03/22/23 7:15 PM) 106 bpm *HI* (03/22/23 7:00 PM) 103 bpm *HI* (03/22/23 6:30 PM) Heart Rate Monitored [60-100 bpm] 114 bpm *HI* (03/22/23 7:15 PM) 108 bpm *HI* (03/22/23 7:00 PM) 99 bpm (03/22/23 6:30 PM) Respiratory Rate [12-24 br/min] 13 br/min (03/22/23 7:15 PM) 11 br/min *LOW* (03/22/23 7:00 PM) 17 br/min (03/22/23 6:30 PM) Blood Pressure [90-140/60-90 mmHg] 143/98mmHg *HI* (03/22/23 7:15 PM) 143/98mmHg *HI* (03/22/23 7:00 PM) 139/103mmHg (03/22/23 6:30 PM) Mean Arterial Pressure, Cuff [65-140 mmHg] 113 mmHg (03/22/23 7:15 PM) 113 mmHg (03/22/23 7:00 PM) 115 mmHg (03/22/23 6:30 PM) Mean Arterial Pressure Cuff 111 mmHg (03/22/23 7:15 PM) 111 mmHg (03/22/23 7:00 PM) 114 mmHg (03/22/23 6:30 PM) Weight 76.00 kg (03/22/23 2:29 PM) Weight Dosing 76.00 kg (03/22/23 2:43 PM) Height 175.600 cm (03/22/23 2:29 PM) Height/Length Dosing 175.600 cm (03/22/23 2:43 PM) Body Mass Index 25.000 kg/m2 (03/22/23 2:29 PM) Social History Social History Type Response Smoking Status Not obtained due to cognitive impairment entered on: 03/22/23 Sex Physician Emergency department Note * NIA Oconnor: MODIFY, MODIFY, PERFORM Event Display: ED Note Physician Authored Date: [id number] DANYA FLORES :1970 Age:53 years Sex:Male Visit Date:03/22/2023 Basic Information Time Seen: NIA Oconnor / 03/22/2023 14:32 Chief Complaint pt reports rectal surgery post colitis on Tu, with rectal drain and ostomy in place, fever chills, dark urine and decreased ostomy outpt History Of Present Illness: Patient is a 53-year-old male with a history of ulcerative colitis??and??total abdominal colectomy and ileostomy??years ago and?? is postop day??4 after a??perineal proctectomy??(removal of the rectum, distal sigmoid and anus) is here for??fatigue, chills??and fever for the past 12 hours.?? He has had associated??nausea and vomiting as well. ??Denies abdominal pains.?? Surgery was done by Dr. Howard Flores??out of [facility]. Review of Systems: See HPI Physical Exam Vitals & Measurements T:??37.3?C ??(Oral)?? HR:??101??(Peripheral)?? HR:??101??(Monitored)?? RR:??15?? BP:??135/93?? SpO2:??100%?? HT:??175.600??cm?? WT:??76.00??kg?? BMI:??25.000?? O2 Therapy:??Room air?? General: Patient is??lethargic, does open his eyes and respond to questions. ??He is speaking comfortably in full sentences. Constitutional: Here is febrile chilled and diaphoretic HEENT: Head normocephalic and atraumatic. Neck supple with FROM w/o lymphadenopathy or JVD. Tracheamidline. No c-spine tenderness. EOMs intact w/o pain. Pupils equal and reactive to light. Respiratory: ??No obvious work of breathing, regular rate. BS equal b/l, clear to auscultation. Cardiovascular: Heart regular rate and rhythm w/o murmurs, rubs or gallops. No peripheral edema present.?? GI: normoactive BS. Abdomen soft. ??Left lower quadrant tenderness. ??Ostomy bag??in place. ??No tenderness erythema or crepitus around the??insertion site.?? Very small amount of dark stool in the bag. ??Anus has been sutured closed. ??There is no surrounding erythema crepitus or tenderness to palpation in the peritoneal area. ??Bloody discharge in the??drainage bulb. Extremities: No obvious deformities. FROM.?? Integumentary: Skin warm and pink. area or erythema, induration and TTP at the previous IV site on the left wrist. Neuro:??Alert and oriented CN III-XII grossly intact.?? Psychiatric: acting appropriate for age and circumstance. Normal mood without obvious ??affect.?? Medical Decision Making: Patient is a pleasant 53-year-old male who is lethargic and appears ill. ??Vitals obtained and reviewed he is tachycardic and febrile. ??Initial evaluation??done. ??He is in no signs of respiratory distress however he does say initially he is??short of breath??however this resolves within 10 minutes ??and he was never hypoxic on the monitor. ??Exam as described??above. ??Given??initial gram of Tylenol IV as well as normal saline??IV. ??Labs obtained including blood cultures, chest x-ray, UA, Candace COVID test??and??a CT abdomen with contrast was obtained. ??Because of the transient dyspnea andrecent surgical procedure??a??D-dimer was??obtained I was able to review with Dr. Flores's surgical note. ??Perineal proctectomy??was?? completed on 10???17??without any complications. Labs fairly reassuring??there??is no elevated white blood cell??count and lactic acid is 1.2.?? D-dimer elevated but this is likely??secondary to??the recent surgery. ??He has not described any respiratory symptoms since??triage and his??tachycardia responds well to fluids. CT of the abdomen??showed intra??peritoneal and retroperitoneal free air along with dilated??fluid and air-filled small bowel loops on the left consistent with an ileus. On reevaluation patient remains tachycardic, febrile and nauseous he was given additional??liter ofnormal saline??and an additional 4 mg Zofran. ?? Postoperative??ileus as well as fever??known source.?? There is no evidence of infection on the chest x-ray, UA??or??around the surgical sites. ??No exam findings consistent with cellulitis, surgicalabscess or Evgeny's gangrene. I do have concern for cellulitis of the site of the surgical IV along the left wrist. ?? 17:00 Call made out to [facility] and spoke with Dr. Moran and surgery. ??He??believes a transfer to [facility] would be appropriate??and approves an ED to ED transfer.?? Recommends n.p.o. and an NG tube be placed.??Also advised holding any antibiotics. ??Patient is agreeable to this plan. Spoke with the??ED physician Dr. Couch who approves this transfer.?? 17:20 Paperwork for transfer completed. ??ETA of transfer crew is 19:15 ?? 18:00??attempted placement of an NG tube however patient had a??significant gag reflex and. ??Sinus tachycardia at a rate of 176. ??NG tube was left in place for approximately 30 seconds however patient did not recover so??it was removed.?? After removal of the NG tube??rate decreased to the??120s. ??Patient vomited once and then symptoms improved. ??EKG was obtained. Procedure No Qualifying Data Assessment/Plan Transferred to [facility] with an ED to ED transfer. Accepting physician is Dr. Couch and patient is aware of risk and benefits of transport and is agreeable to this plan. 1.??Postoperative fever??R50.82 2.??Postoperative ileus??K91.89 Ileus, unspecified??K56.7 Orders: Blood Culture, Periph Bld, Arm R, Routine collect, RT - Routine, 03/22/23 14:48:00 EDT, Once, Lab Collect, Print Label Blood Culture, Blood, Arm L, Routine collect, RT - Routine, 03/22/23 14:48:00 EDT, Once, Lab Collect, Print Label Nasogastric (NG) Tube Insertion, 03/22/23 16:53:00 EDT, Stop date 03/22/23 16:53:00 EDT Urine Culture, U CleanCatch, Stat collect, ST - Stat, 03/22/23 17:02:00 EDT, Once, Nurse collect, Collected, 03/22/23 17:02:00 EDT, Print Label, [id number] Medication Reconciliation Unchanged HYDROmorphone (HYDROmorphone 2 mg oral tablet)1 tab Oral (given by mouth) every 4 hours as needed as needed for pain. Problem List/Past Medical History Ongoing Morbid obesity Historical No qualifying data Medication Administration Given Sodium Chloride 0.9%, 1000 mL, Hydration Bolus Sodium Chloride 0.9%, 1000 mL, Hydration Bolus acetaminophen, 1000 mg, IV Piggyback Ativan, 1 mg, Oral. For: Postoperative fever,??Postoperative ileus ondansetron, 4 mg, IV Push ondansetron, 4 mg, IV Push Allergies NSAIDs Social History Electronic Cigarette/Vaping Electronic Cigarette Use: Unknown/not obtained. Tobacco Not obtained due to cognitive impairment Tobacco Use:. Diagnostic Results CT Abdomen and Pelvis w/ Contrast 03/22/2023 16:01 EDT XR Chest 2 Views 03/22/2023 17:25 EDT XR Chest 2 Views ?? 03/22/23 16:33:14 PROCEDURE INFORMATION: Exam: XR Chest Exam date and time: 03/22/2023 4:33 PM Age: 53 years old Clinical indication: Pain; Angina pectoris; Additional info: Chest pain ?? TECHNIQUE: Imaging protocol: Radiologic exam of the chest. Views: 2 views. ?? COMPARISON: No relevant prior studies available. ?? FINDINGS: Lungs: The lung john are clear. No focal infiltrate. Pleural spaces: No pleural effusion. Heart/Mediastinum: No cardiac enlargement. Bones/joints: There is no acute osseous abnormality. ?? IMPRESSION: No acute findings. ? THIS DOCUMENT HAS BEEN ELECTRONICALLY SIGNED BY SIMIN MONTERO MD on 03/22/2023 05:25 PM ?? Signed By: Simin Montero MD ?? CT Abdomen and Pelvis w/ Contrast ?? 03/22/23 15:14:17 PROCEDURE INFORMATION: Exam: CT Abdomen And Pelvis With Contrast Exam date and time: 03/22/2023 3:14 PM Age: 53 years old Clinical indication: Abdominal pain; Generalized; Prior surgery; Surgery date: 3-7 days post-operative; Surgery type: Rectum removal; Additional info: Abd pain ?? TECHNIQUE: Imaging protocol: Computed tomography of the abdomen and pelvis with contrast. Radiation optimization: All CT scans at this facility use at least one of these dose optimization techniques: automated exposure control; mA and/or kV adjustment per patient size (includes targeted exams where dose is matched to clinical indication); or iterative reconstruction. Contrast material: [id number]; Contrast volume: 100 ml; Contrast route: INTRAVENOUS (IV); ?? REPORTING DATA: Count of CT and Cardiac NM exams in prior 12 months: This patient has received 0 known CTs and 0 known cardiac nuclear medicine studies in the 12 months prior to the current study. ?? COMPARISON: CT ABD/PELVIS W CONTRAST 02/08/2021 12:46 PM ?? FINDINGS: Limitations: No oral contrast. Limited surgical and medical history. Cancer history is not included. Artifact from indwelling spinal hardware. Tubes, catheters and devices: There is a surgical drain via a right posterior perirectal approach located within the presacral space. Lungs: No focal consolidation at the lung bases. ?? Liver: Within the medial segment of the left hepatic lobe near the falciform ligament, there is regional decreased enhancement/attenuation. This has the appearance of a benign pseudo lesion. This is most commonly secondary to variations in venous drainage. The liver is otherwise unremarkable. Gallbladder and bile ducts: No calcified gallstones. Pancreas: The pancreas is unremarkable. Spleen: The spleen is unremarkable. Adrenal glands: The adrenal glands are unremarkable. Kidneys and ureters: No intrarenal calculi. Small renal hypodensities are too small to adequately characterize. No hydronephrosis. Stomach and bowel: Evaluation of the gut is limited without oral contrast. The patient is status post subtotal colectomy with a right anterior abdominal wall ileostomy. Patient history reports recent resection of the rectum. There is a gastric diverticulum along the gastric fundus. There are dilated, fluid and air-filled small bowel loops on the left. There are differential air-fluid levels. Decompressed small bowel loops are seen juxtaposed to the dilated small bowel loops. Appendix: The appendix is surgically absent. ?? Intraperitoneal space: There is a surgical drain via a right posterior perirectal approach located within the presacral space. There is a complex gas and fluid collection in the presacral space most consistent for recent rectum resection. There is a small amount of intraperitoneal and retroperitoneal free air. The retroperitoneal free air is seen on the left. This is likely due to recent surgery. Vasculature: There is calcification of the aorta and the aortic branches. Lymph nodes: There is no suspicious adenopathy. Urinary bladder: The urinary bladder is decompressed around a Barton catheter, limiting evaluation for bladder wall thickening. A small focus of gas within the bladder is likely secondary to recent instrumentation. Reproductive: Unremarkable as visualized. Bones/joints: The patient has had prior laminectomy and fusion at L5-S1. There is resultant metallic artifact. Soft tissues: There is a right ventral abdominal wall ileostomy. Soft tissue densities are seen within the proximal inguinal regions, new from the prior study, suspicious for interval inguinal hernia repair. Surgical history is not given. ?? IMPRESSION: 1. The patient is status post subtotal colectomy with a right anterior abdominal wall ileostomy. Findings of recent resection of the rectum. 2. There is a surgical drain via a right posterior perirectal approach located within the presacral space. There is a complex gas and fluid collection in the presacral space most consistent for recent rectum resection. There are no prior postsurgical examinations available for comparison. Continued follow-up is recommended. 3. There is a small amount of intraperitoneal and retroperitoneal free air. The retroperitoneal free air is seen on the left. This is likely due to recent surgery. 4. There are dilated, fluid and air-filled small bowel loops on the left. There are differential air-fluid levels. Decompressed small bowel loops are seen juxtaposed to the dilated small bowel loops. This may be secondary postsurgical ileus or small-bowel obstruction. Follow-up is recommended. ?? COMMENTS: Consistent with the [employer]???s Incidental Findings Committee white paper (J Am Hema Radiol 2018): Any incidental renal lesion less than 1 cm or classified as too small to characterize, or any incidental cystic renal lesion characterized as simple-appearing, is likely benign. No follow-up imaging is recommended for these lesions per consensus recommendations based on imaging criteria. ? THIS DOCUMENT HAS BEEN ELECTRONICALLY SIGNED BY SIMIN MONTERO MD on 03/22/2023 04:01 PM ?? Signed By: Simin Montero MD Lab Results CBC and Differential?? LATEST RESULTS?? WBC?? 03/22/23 14:55?? 7.7?? RBC?? 03/22/23 14:55?? 4.82?? Hgb?? 03/22/23 14:55?? 13.8 ??Low?? Hct?? 03/22/23 14:55?? 39.7 ??Low?? MCV?? 03/22/23 14:55?? 82.4?? MCH?? 03/22/23 14:55?? 28.6?? MCHC?? 03/22/23 14:55?? 34.8?? RDW-CV?? 03/22/23 14:55?? 12.1?? Platelets?? 03/22/23 14:55?? 258?? MPV?? 03/22/23 14:55?? 9.0?? Segs Man?? 03/22/23 14:55?? 85?? Lymph Man?? 03/22/23 14:55?? 7.0 ??Low?? Reeves Man?? 03/22/23 14:55?? 7.0?? Eos Man?? 03/22/23 14:55?? 1.00?? Baso Man?? 03/22/23 14:55?? 0.0?? Band Man?? 03/22/23 14:55?? 0?? Abs Neut Man?? 03/22/23 14:55?? 6.5?? Abs Lymph Man?? 03/22/23 14:55?? 0.5 ??Low?? Abs Reeves Man?? 03/22/23 14:55?? 0.5?? Abs Eos Man?? 03/22/23 14:55?? 0.1?? Abs Baso Man?? 03/22/23 14:55?? 0.0?? RBC Morph?? 03/22/23 14:55?? Normal?? Plt Estimation?? 03/22/23 14:55?? Normal?? Slide Review?? 03/22/23 14:55?? Man Diff? Coagulation?? LATEST RESULTS?? D Dimer, (Quant.)?? 03/22/23 15:16?? 936 ??High? Routine Chemistry?? LATEST RESULTS?? Sodium Level?? 03/22/23 14:55?? 129 ??Low?? Potassium Level?? 03/22/23 14:55?? 4.0?? Chloride Level?? 03/22/23 14:55?? 98?? CO2?? 03/22/23 14:55?? 21 ??Low?? Alk Phos?? 03/22/23 14:55?? 42?? AST?? 03/22/23 14:55?? 26?? ALT?? 03/22/23 14:55?? 23?? BUN?? 03/22/23 14:55?? 15?? Glucose Level?? 03/22/23 14:55?? 123 ??High?? Creatinine Level?? 03/22/23 14:55?? 0.93?? BUN/Creat Ratio?? 03/22/23 14:55?? 16.1?? eGFR CKD-EPI?? 03/22/23 14:55?? 98?? Calcium Level?? 03/22/23 14:55?? 8.9?? Protein Total?? 03/22/23 14:55?? 7.6?? Albumin Level?? 03/22/23 14:55?? 3.7?? Globulin?? 03/22/23 14:55?? 3.9 ??High?? A/G Ratio?? 03/22/23 14:55?? 0.9 ??Low?? Bilirubin Total?? 03/22/23 14:55?? 1.5 ??High?? Anion Gap?? 03/22/23 14:55?? 10.0?? Lactic Acid Lvl?? 03/22/23 14:55?? 1.2?? Osmolality?? 03/22/23 14:55?? 261 ??Low? UA Macroscopic?? LATEST RESULTS?? Urine Srce?? 03/22/23 17:02?? Clean Catch?? UA Color?? 03/22/23 17:02?? Yellow?? UA Appear?? 03/22/23 17:02?? Clear?? UA Glucose?? 03/22/23 17:02?? Negative?? UA Bili?? 03/22/23 17:02?? Negative?? UA Ketones?? 03/22/23 17:02?? Trace Abnormal?? UA Spec Grav?? 03/22/23 17:02?? 1.010?? UA Blood?? 03/22/23 17:02?? Moderate Abnormal?? UA pH?? 03/22/23 17:02?? 6.50?? UA Protein?? 03/22/23 17:02?? Trace Abnormal?? UA Urobilinogen?? 03/22/23 17:02?? 0.2?? UA Nitrite?? 03/22/23 17:02?? Negative?? UA Leuk Est?? 03/22/23 17:02?? Negative?? UA Culture Ind?.?? 03/22/23 17:02?? Yes? UA Microscopic?? LATEST RESULTS?? UA WBC?? 03/22/23 17:02?? 0-3?? UA RBC?? 03/22/23 17:02?? 25-50 Abnormal?? UA Mucous?? 03/22/23 17:02?? Present Abnormal? Electronically Signed on 03/22/23 07:22 PM NIA Oconnor Patient Care team information Care Team Personnel Name: NIA Oconnor Position: Physician Member Role: Physician Address: Address: [address] [place] [id number] Name: Radha Morgan Position: Nurse Member Role: ED Nurse Care Team Related Persons Name: BRYAN FLORES
--- NOTE | 2023-07-08 07:30 | DI.US_ITS ---
Exam(s) US RENAL EXAM: US RENAL CLINICAL HISTORY: incomplete emptying with flank pain,R33.9. TECHNIQUE: Galvez scale, color and spectral Doppler were used. COMPARISON: CT CT ABDOMEN PELVIS W from 08/17/2022 FINDINGS: Renal size in cm: Right: 10.6 left: 10.8 Echogenicity: Normal Hydronephrosis: No Cyst or mass: No Nephrolithiasis: No Bladder:Normal. Both ureteral jets were visualized. Prevoid vol:300 cc Postvoid vol:65 cc Prostate not well seen. Appeared normal in size on prior CT. IMPRESSION: Normal appearing kidneys. Elevated postvoid residual. DATA REPOSITORY:
== END ==
PROVIDERS: PCP Family Medicine; Visit Provider Nurse Practitioner Gerontology
DX: R33.9 Retention of urine, unspecified (principal)
CPT/HCPCS: 76770

== ENCOUNTER → 2023-07-14 08:10 | Outpatient (BNVA) | payer MEDICARE, SELFPAY | PROVIDERS: PCP Family Medicine; Referring Provider Family Medicine; Visit Provider Nurse Practitioner Gerontology | DX: R33.8 Other retention of urine (principal) | CPT/HCPCS: 99213 ==

== ENCOUNTER 2023-09-16 14:13 | Emergency (ER) | payer MEDICARE, SELFPAY ==
[2023-09-16] VITALS (34 sets, daily range): BP systolic 156–189; BP diastolic 107–132; PULSE 76–103; RESP 8–25; TEMP 36.8; O2SAT 94–100
--- NOTE | 2023-09-16 14:15 | DI.CT_ITS ---
Exam(s) CT ABDOMEN PELVIS W EXAM: CT ABDOMEN PELVIS W CLINICAL HISTORY: upper abd pain with nausea. TECHNIQUE: Imaging Protocol: Axial computed tomography images with coronal and sagittal reformatted images were created and reviewed CONTRAST MATERIAL: Intravenous: Omnipaque 350 Contrast volume:100 ml Oral: yes / no COMPARISON: CT CT ABDOMEN PELVIS W from 08/17/2022 FINDINGS: ABDOMEN and PELVIS: Lung Bases: No acute findings. Liver: Normal density. No measurable mass. Gallbladder and biliary tract: No radiodense calculus or biliary dilation. Pancreas: Normal density. No abnormal calcifications or inflammatory process. No evidence of mass. Spleen: Normal. Kidneys: Normal size, contour and axis. No radiodense stones. No obstructive uropathy. No suspicious masses seen. Adrenal glands: No masses seen. Vasculature: Abdominal aorta non-dilated. Soft tissues: Right upper quadrant ostomy is unremarkable. Bilateral inguinal hernia repair appears intact. No recurrence hernias. Bladder: No gross wall thickening. No calculi.No focal mass. Bowel: Status post colectomy. No obstruction. No bowel wall thickening. Peritoneal cavity: No ascites. No focal collection or mesenteric inflammatory response. Bones: Degenerative and postsurgical changes in the spine. Reproductive organs: Within normal limits. Lymph nodes: Unremarkable. IMPRESSION:: No acute abnormality. Status post colectomy. No evidence of bowel inflammation or obs truction. RADIATION DOSE DELIVERED: 898.38mGy.cm Total DLP DATA REPOSITORY: All CT scans at this facility are submitted to the National Radiology Data Registry (NRDR) Dose Index Registry (DIR) with the [employer] (ACR). RADIATION OPTIMIZATION: All CT scans at this facility use at least one of these dose optimization te chniques: automated exposure control; mA and/or kV adjustment per patient size (includes targeted exa ms where dose is matched to clinical indication); or iterative reconstruction.
--- NOTE | 2023-09-16 14:24 | ED.GENADUL_ITS ---
Discharge Plan Discharge Details Chief Complaint: Abd Prob Primary Care Provider: Lisa Mayorga V ED Provider: Palak Brandon Home Meds and New Rx's Prescriptions: No Action tadalafil [Cialis] 5 mg tablet 5 mg PO DAILY Qty: 90 3RF Hold Instructions: Pt Stopped/Never Started magnesium carb,citrate,oxide 300 mg magnesium tablet 300 mg PO DAILY vitamin B complex Capsule 1 cap PO DAILY omega 4-ijl-ddf-fish oil [Fish Oil] 300-1,000 mg capsule 1 cap PO DAILY coenzyme Q10 [Co Q-10] 100 mg capsule 100 mg PO DAILY cholecalciferol (vitamin D3) 25 mcg (1,000 unit) capsule 25 mcg PO DAILY CBD oil 16 mg drops See Rx Instructions PO/SL 1XD Rx Instructions: 16 Drops Orally or Sublingually 1 time daily; albuterol sulfate 90 mcg/actuation HFA aerosol inhaler 2 inh INHALATION TID Patient Comments: INHALE 2 PUFFS BY MOUTH EVERY 4 HOURS NEEDED fluticasone propion-salmeterol [Advair Diskus] 250-50 mcg/dose blister with device 1 inh INHALATION BID PRN Patient Comments: Inhale 1 puff by mouth twice a day HPI General Date/Time Provider Initiated Documentation: 09/16/23 14:15 . HPI Narrative: Mic Wolf) is a 53-year-old male with a history of ileostomy with colectomy and proctectomy, history of ablation for A-fib, and ulcerative colitis who presents to the emergency department today for evaluation of sudden onset of abdominal cramping, nausea, and feeling of fullness/bloating consistent with previous episodes of bowel obstruction. He reports symptoms started suddenly at 2 AM, he has barely been able to tolerate sips of water since onset. Denies recent fever/chills, sore throat, congestion, cough, chest pain, shortness of breath, vomiting (although he has had the urge to), change in urine output. He reports he has had decreased output from his ileostomy, none since 9:30 this morning. No blood in stool. No symptoms prior to 2 am this morning. No recent ill contacts with gastroenteritis. Related Data Home Medications Medication Instructions Recorded Confirmed cholecalciferol (vitamin D3) 25 25 mcg PO DAILY 04/29/22 09/16/23 mcg (1,000 unit) capsule coenzyme Q10 100 mg capsule (Co 100 mg PO DAILY 04/29/22 09/16/23 Q-10) magnesium carb,citrate,oxide 300 mg PO DAILY 04/29/22 09/16/23 omega 1-zdj-gvm-fish oil 300 1 cap PO DAILY 04/29/22 09/16/23 mg-1,000 mg capsule (Fish Oil) vitamin B complex 1 cap PO DAILY 04/29/22 09/16/23 albuterol sulfate 90 mcg/actuation 2 inh inhalation TID 06/05/22 09/16/23 aerosol inhaler CBD oil See Rx Instructions PO/SL 1XD 08/23/22 09/16/23 fluticasone 250 mcg-salmeterol 50 1 inh inhalation BID PRN 07/07/23 09/16/23 mcg/dose blistr powdr for inhalation (Advair Diskus) tadalafil 5 mg tablet (Cialis) 5 mg PO DAILY #90 tabs 07/08/23 09/16/23 Previous Rx's Medication Instructions Recorded tadalafil 5 mg tablet (Cialis) 5 mg PO DAILY #90 tabs 07/08/23 Allergies Allergy/AdvReac Type Severity Reaction Status Date / Time ibuprofen Allergy Severe tongue Verified 09/16/23 14:24 swelling NSAIDS (Non-Steroidal Allergy Severe Anaphylaxis Unverified 09/16/23 14:24 Anti-Inflamma tamsulosin [From Flomax] Allergy Intermediate breathing Verified 09/16/23 14:24 difficulty Sulfa (Sulfonamide Allergy shortness Verified 09/16/23 14:24 Antibiotics) of breath, rash bupropion [From Wellbutrin] AdvReac Severe suicidal Verified 09/16/23 14:24 thoughts zolpidem [From Ambien] AdvReac Severe sleep Verified 09/16/23 14:24 walk/drive atenolol AdvReac Unknown amnesia Verified 09/16/23 14:24 General Stated Complaint: Abd Prob MERLE: 3 Review of Systems Narrative: see HPI Exam Const General: cooperative and healthy appearing Nutritional Appearance: average body habitus Resp Effort & Inspection: normal respiratory effort and able to speak in complete sentences Auscultation: clear to auscultation bilaterally Cardio Rate: regular rate Rhythm: regular rhythm GI Inspection: distended (softly distended) Palpation: soft, not firm, no guarding, no hernias and no masses Auscultation: abnormal bowel sounds (decreased bowel sounds in lower abdomen) Course Vital Signs Vital signs: Vital Signs Temperature 36.8 C 09/16/23 14:18 Pulse 90 09/16/23 14:18 Respiratory Rate 20 09/16/23 14:18 Blood Pressure 184/128 H 09/16/23 14:18 Pulse Oximetry 99 09/16/23 14:18 Temperature 36.8 C 09/16/23 14:22 Temperature Source Oral 09/16/23 14:22 Pulse 90 09/16/23 14:22 Respiratory Rate 20 09/16/23 14:22 Respiratory Effort Normal 09/16/23 14:22 Blood Pressure 184/128 H 09/16/23 14:22 Blood Pressure Position Sitting 09/16/23 14:22 Pulse Oximetry 98 09/16/23 14:22 Oxygen Delivery Method Room Air 09/16/23 14:22 Oxygen Flow Rate 0 09/16/23 14:18 Pain Level 3 09/16/23 14:22 Medical Decision Making Mic Wolf) is a 53-year-old male with a history of ileostomy with colectomy and proctectomy, history of ablation for A-fib, and ulcerative colitis who presents to the emergency department today for evaluation of sudden onset of abdominal cramping, nausea, and feeling of fullness/bloating consistent with previous episodes of bowel obstruction. He reports symptoms started suddenly at 2 AM, he has barely been able to tolerate sips of water since onset. Denies recent fever/chills, sore throat, congestion, cough, chest pain, shortness of breath, vomiting (although he has had the urge to), change in urine output. He reports he has had decreased output from his ileostomy, none since 9:30 this morning. No blood in stool. No symptoms prior to 2 am this morning. No recent ill contacts with gastroenteritis. Physical exam remarkable for softly distended abdomen, decreased bowel sounds in the lower abdomen. Abdomen is soft, diffusely tender to palpation. Easy work of breathing, lung sounds Clear bilaterally. Normal heart sounds. Tacky mucous membranes. DDx includes but is not limited to: ileus, small bowel obstruction, viral gastroenteritis, infectious or inflammatory process in small intestine. I independently interpreted the following tests: CBC, lipase, mag, and CMP reassuring. Slightly elevated total bilirubin of 1.3, increased from previous of 0.8 and 0.7 on 08/17/2022 and 08/07/2022 respectively. Other LFTs reassuring. While in the emergency department Juve received IV fluids and Zofran for nausea. He declines pain medications at this time. I did review previous records, including PCP visit on 10/02/22 in which pt was diagnosed with UC after protoscopy. He was experiencing bloody anal discharge. Review of urology clinic visit on 07/14/23 revealed history of proctectomy in March 2023 and elevated PVR. 1540: Awaiting CT scan results (completed, pending radiologist read). Handoff report given to mary Caldera AMELIA. Quality:[facility] Health Related Social Needs: No Data to Display PFSH All Active Problems (Updated 07/07/23 @ 11:43 by Sarah Puentes DNP) Incomplete emptying of bladder (Acute) Tachycardia (Acute) History of atrial fibrillation (Acute) has had ablation Proctitis (Acute) disuse/diversion proctitis Hx of ulcerative colitis (Acute) Bilateral inguinal hernia (Acute) Laceration of finger of left hand (Acute) Laceration volar fingertip left middle finger Date of injury: 04/26/18 Fracture of distal phalanx of finger of left hand (Acute) Asymptomatic fracture of the distal phalanx of the left ring finger Date of injury: 04/26/[address] (Acute) Psoriasis (Chronic) Depression with anxiety (Acute) Hypertension (Chronic) Chronic recurrent pilonidal cyst (Acute) Asthma, moderate persistent (Acute) Degenerative joint disease (DJD) of lumbar spine (Acute) Bronchitis, obstructive, chronic (Acute) Environmental allergies (Acute) Hypogonadism, male (Acute) Bilateral inguinal hernia (Acute) Medical History Enteritis Former smoker Hyperlipidemia PTSD (post-traumatic stress disorder) SVT (supraventricular tachycardia) Ulcerative proctitis Surgical History H/O cardiac radiofrequency ablation History of back surgery 2 rods, 4 screws, L4-5 2006 [place], [place] H/O total colectomy H/O hernia repair (~01/2020) [facility] around ileostomy Social History Smoking/Tobacco Use Status: Former Tobacco Use Quit Date: 06/02/06 Smoking risk assessment performed?: Yes Alcohol Intake: former Drug use: Never Substance use type: does not use Housing: house Current gender identity: male Do you feel safe in your relationship?: Yes Sign Out Sign Out Data: Sign Out Comment: Juve is a 53-year-old male with history of ileostomy who presents to the emergency department today for nausea, bloating/fullness, and crampy abdominal discomfort since 2 AM. He has concern for small bowel obstruction/ileus, has had multiple abdominal surgeries in the past including proctectomy colectomy. Scant output from ostomy since onset of symptoms. Labs all reassuring. Awaiting CT scan results. Patient declined pain medications, is currently NPO. Last updated by Palak Brandon at 09/16/23 15:33
[2023-09-16] MEDS: Ondansetron 4 MG/2 ML VIAL IVP (14:30)
[2023-09-16 14:43] LABS: Abs Immature Grans 0.02 10^3/uL (0.0-0.06); Absolute Basophil Count 0.03 10^3/uL (0.0-0.2); Absolute Eosinophil Count 0.12 10^3/uL (0.0-0.7); Absolute Lymphocyte Count 1.29 10^3/uL (1.2-3.4); Absolute Monocyte Count 0.43 10^3/uL (0.1-0.8); Absolute Neutrophil Count 6.65 10^3/uL (1.2-6.7); Basophils % 0.4; Eosinophils % 1.4; HCT 45.9 % (40.0-50.0); HGB 15.9 g/dL (13.5-17.5); Immature Grans % 0.2; Lymphocytes % 15.1; MCH 27.8 pg (27.0-33.0); MCHC 34.6 % (32.0-36.0); MCV 80 fL (80-95); Neutrophils % 77.9; Platelet Count 288 10^3/uL (130-400); RBC 5.72 10^6/uL (4.36-5.78); RDW 13.2 % (11.8-14.1); RDW-SD 38.2 fL; WBC 8.54 10^3/uL (4.4-10.8)
[2023-09-16 14:56] LABS: ALT 33 U/L (16-63); AST 24 U/L (15-37); Albumin 4.1 g/dL (3.4-5.0); Alkaline Phosphatase 80 U/L (46-116); Anion Gap 9.1 mmol/L (3-11); BUN 15 mg/dL (7-18); Bilirubin, Total 1.3 mg/dL (0.2-1.0); CO2 25.9 mmol/L (21.0-32.0); Calcium 9.3 mg/dL (8.5-10.1); Chloride 102 mmol/L (98-107); Estimated GFR 89.44 (mL/min/1.73m2); Glucose 108 mg/dL (74-106); Lipase 27 U/L (16-77); Potassium 4.3 mmol/L (3.5-5.1); Sodium 137 mmol/L (136-145); Total Protein 8.2 g/dL (6.4-8.2)
[2023-09-16] MEDS: Normal Saline 500 ML 1000 ML IV (14:59)
[2023-09-16] MEDS: Normal Saline - Diluent 50 ML VIAL IJ (15:43)
[2023-09-16] MEDS: Omnipaque 350 MG/ML 100 ML BTL IJ (15:44)
--- NOTE | 2023-09-16 16:15 | RT.EKG_ITS ---
APPROVED REPORT Exam: Resting ECG Reason for Exam: Checking for QT abnormalities Patient Location: E HR:89 bpm ECG Measurements Heart Rate 89 AXIS VT 158 P 80 QRSd 79 QRS 64 QT 364 T 63 QTc 443 Conclusion Sinus rhythm.. 89 normal axis no stemi
--- NOTE | 2023-09-16 16:45 | ED.PROG_ITS ---
Date of service: 09/16/23 Time of Service: 16:45 Medical Decision Making This dictation utilizes sorrw-yq-emjy dictation software and may contain unedited grammatical errors. 53 y/o M presents to ED today with a chief complaint of abdominal cramping, nausea since last night- has history of proctectomy due to UC- states he has had scant stoma output since last night. Was followed by Dr. Lagunas at [facility] but hasn't seen her in years. Patient signed out to me by Palak Doe NP with benign laboratory work-up and pending CT results. Patients' medical history: proctectomy, known inguinal hernias. Family and social history: noncontributory. Pertinent exam findings / vital signs include [ ]. Differential / pathologies of concern include [ ]. Diagnostic studies of: -reviewed labs - mild elevation in bilirubin- non-specific -no leukocytosis -CMP otherwise benign -lipase WNL -lactate neg -added CRP/ESR, lactate, LFTs- to r/o UC flare and mesenteric ischemia and elevated bilirubin -all WNL Interventions of: -outpatient Rx for Zofran. ED Course/Assessment/Plan: 53-year-old male with history of total proctectomy presents with some nausea as well as abdominal cramping, states his stoma usually protrudes about 1 to 2 inches but is flush with his belly, he suspects he has an obstruction due to scant output, his labs are all reassuring, there is no signs of elevated lactate indicating mesenteric ischemia, CRP and ESR are negative and likely this is not a flare of prior ulcerative colitis especially postoperatively. Counseled on benign CT results but due to his complicated abdominal history I encouraged him to observe himself closely at home and return for any negative changes. I did provide Zofran by outpatient prescription, the patient was comfortable with this disposition, I urged him to seek a referral to another radio talk show host as it has been many years since he has seen gastroenterology in [place]. Possible condition of gastritis/gastroenteritis Findings not consistent with mesenteric ischemia, sepsis, bowel obstruction, inflammatory bowel disease flare. Disposition of nausea. Patient verbalized understanding of the plan and return to ED criteria and engaged in shared decision making. Medical Records Medical records reviewed: Yes I reviewed the patient's medical records. Imaging Data Radiologic Study: Attestation: I personally reviewed and interpreted this imaging study as follows: Imaging: CT Scan Radiologist's impression: EXAM: CT ABDOMEN PELVIS W CLINICAL HISTORY: upper abd pain with nausea. TECHNIQUE: Imaging Protocol: Axial computed tomography images with coronal and sagittal reformatted images were created and reviewed CONTRAST MATERIAL: Intravenous: Omnipaque 350 Contrast volume:100 ml Oral: yes / no COMPARISON: CT CT ABDOMEN PELVIS W from 08/17/2022 FINDINGS: ABDOMEN and PELVIS: Lung Bases: No acute findings. Liver: Normal density. No measurable mass. Gallbladder and biliary tract: No radiodense calculus or biliary dilation. Pancreas: Normal density. No abnormal calcifications or inflammatory process. No evidence of mass. Spleen: Normal. Kidneys: Normal size, contour and axis. No radiodense stones. No obstructive uropathy. No suspicious masses seen. Adrenal glands: No masses seen. Vasculature: Abdominal aorta non-dilated. Soft tissues: Right upper quadrant ostomy is unremarkable. Bilateral inguinal hernia repair appears intact. No recurrence hernias. Bladder: No gross wall thickening. No calculi.No focal mass. Bowel: Status post colectomy. No obstruction. No bowel wall thickening. Peritoneal cavity: No ascites. No focal collection or mesenteric inflammatory response. Bones: Degenerative and postsurgical changes in the spine. Reproductive organs: Within normal limits. Lymph nodes: Unremarkable. IMPRESSION:: No acute abnormality. Status post colectomy. No evidence of bowel inflammation or obstruction. Lab Data Lab results reviewed: Yes I reviewed the patient's lab results. Labs: Laboratory Tests Range/Units 09/16/23 09/16/23 14:36 17:00 WBC (4.4-10.8) 10^3/uL 8.54 RBC (4.36-5.78) 10^6/uL 5.72 Hgb (13.5-17.5) g/dL 15.9 Hct (40.0-50.0) % 45.9 MCV (80-95) fL 80 MCH (27.0-33.0) pg 27.8 MCHC (32.0-36.0) % 34.6 RDW (11.8-14.1) % 13.2 Plt Count (130-400) 10^3/uL 288 MPV (8.0-11.0) fL 9.0 Immature Gran % 0.2 Neutrophils % 77.9 Lymphocytes % 15.1 Monocytes % 5.0 Eosinophils % 1.4 Basophils % 0.4 Nucleated RBC % (0.0-0.3) % 0.0 Absolute Neutrophils (1.2-6.7) 10^3/uL 6.65 Absolute Lymphocytes (1.2-3.4) 10^3/uL 1.29 Absolute Monocytes (0.1-0.8) 10^3/uL 0.43 Absolute Eosinophils (0.0-0.7) 10^3/uL 0.12 Absolute Basophils (0.0-0.2) 10^3/uL 0.03 ESR (0-20) mm/hr 7 VBG Lactate (0.6-1.4) mmol/L 0.8 Sodium (136-145) mmol/L 137 Potassium (3.5-5.1) mmol/L 4.3 Chloride (98-107) mmol/L 102 Carbon Dioxide (21.0-32.0) mmol/L 25.9 Anion Gap (3-11) mmol/L 9.1 BUN (7-18) mg/dL 15 Creatinine (0.70-1.30) mg/dL 1.0 Est GFR (CKD-EPI 2020) (mL/min/1.73m2) 89.44 Glucose (74-106) mg/dL 108 H Calcium (8.5-10.1) mg/dL 9.3 Magnesium (1.8-2.4) mg/dL 2.0 Total Bilirubin (0.2-1.0) mg/dL 1.3 H 1.3 H Conjugated Bilirubin (0.0-0.2) mg/dL 0.2 AST (15-37) U/L 24 22 ALT (16-63) U/L 33 29 Alkaline Phosphatase (46-116) U/L 80 72 C-Reactive Protein (<or=0.5) mg/dL < 0.50 Total Protein (6.4-8.2) g/dL 8.2 7.4 Albumin (3.4-5.0) g/dL 4.1 3.7 Lipase (16-77) U/L 27 Quality:[facility] Health Related Social Needs: No Data to Display Sign Out Sign Out Data: Sign Out Comment: Juve is a 53-year-old male with history of ileostomy who presents to the emergency department today for nausea, bloating/fullness, and crampy abdominal discomfort since 2 AM. He has concern for small bowel obstruction/ileus, has had multiple abdominal surgeries in the past including proctectomy colectomy. Scant output from ostomy since onset of symptoms. Labs all reassuring. Awaiting CT scan results. Patient declined pain medications, is currently NPO. Last updated by Palak Brandon at 09/16/23 15:33 Discharge Plan Disposition Patient Disposition: Home Condition: Stable Discharge Details Clinical Impression: Nausea Primary Care Provider: Lisa Mayorga V ED Provider: Skinny Greenfield Home Meds and New Rx's Prescriptions: New ondansetron 4 mg tablet,disintegrating 4 mg PO Q8H PRN (Reason: nausea & vomiting) Qty: 30 0RF Continued tadalafil [Cialis] 5 mg tablet 5 mg PO DAILY Qty: 90 3RF Hold Instructions: Pt Stopped/Never Started magnesium carb,citrate,oxide 300 mg magnesium tablet 300 mg PO DAILY vitamin B complex Capsule 1 cap PO DAILY omega 7-sug-qjl-fish oil [Fish Oil] 300-1,000 mg capsule 1 cap PO DAILY coenzyme Q10 [Co Q-10] 100 mg capsule 100 mg PO DAILY cholecalciferol (vitamin D3) 25 mcg (1,000 unit) capsule 25 mcg PO DAILY CBD oil 16 mg drops See Rx Instructions PO/SL 1XD Rx Instructions: 16 Drops Orally or Sublingually 1 time daily; albuterol sulfate 90 mcg/actuation HFA aerosol inhaler 2 inh INHALATION TID Patient Comments: INHALE 2 PUFFS BY MOUTH EVERY 4 HOURS NEEDED fluticasone propion-salmeterol [Advair Diskus] 250-50 mcg/dose blister with device 1 inh INHALATION BID PRN Patient Comments: Inhale 1 puff by mouth twice a day Discharge Instructions Instructions: Ondansetron (By mouth), Acute Nausea and Vomiting (ED) Additional Instructions: You were seen in the emergency department for your abdominal cramping and nausea with significant abdominal surgical history. Your labs are reassuring there is no sign of infection, inflammatory markers are negative I do not think you are having a recurrence of any ulcerative colitis pathology. Your CT scan shows no obstruction, no concerns, your lactate was negative which can be a marker of lack of blood supply to any part of your bowel. I suspect you may have a stomach bug, and I have sent prescription antinausea medicine Zofran to the [facility] in [place], please watch yourself carefully as sometimes bowel obstruction can be transient and resolve spontaneously, please return for any intractable nausea or vomiting severe increase in abdominal pain or fever. Referrals: Lisa Mayorga MD [Primary Care Provider] - Discharge Data Discharge Date/Time-TO BE ENTERED AT DEPARTURE: 09/16/23 18:00
[2023-09-16] MEDS: Ondansetron 4 MG/2 ML VIAL (17:05)
[2023-09-16 17:06] LABS: Lactate 0.8 mmol/L (0.6-1.4)
[2023-09-16 17:07] LABS: ESR 7 mm/hr (0-20)
[2023-09-16 17:32] LABS: ALT 29 U/L (16-63); AST 22 U/L (15-37); Albumin 3.7 g/dL (3.4-5.0); Alkaline Phosphatase 72 U/L (46-116); Bilirubin, Direct 0.2 mg/dL (0.0-0.2); Bilirubin, Total 1.3 mg/dL (0.2-1.0); C-Reactive Protein < 0.50 mg/dL (<or=0.5); Total Protein 7.4 g/dL (6.4-8.2)
== END 2023-09-16 18:00 | disposition home or self-care (01) ==
PROVIDERS: Nurse Practitioner Family; Emergency Provider Physician Assistant; PCP Family Medicine
DX: R11.0 Nausea (principal); R10.10 Upper abdominal pain, unspecified; I48.91 Unspecified atrial fibrillation; I10 Essential (primary) hypertension; Z93.2 Ileostomy status; Z87.891 Personal history of nicotine dependence
CPT/HCPCS: 00123; 36415; 80053; 80076; 83690; 85652; 93005; 96374; 99285; 74177; 83605; 83735; 85025; 86140; 93010; 99284; J2405; J3490

== ENCOUNTER 2023-12-15 15:30 | Emergency (ER) | payer MEDICARE, SELFPAY ==
[2023-12-15 15:34] VITALS: BP 150/90; PULSE 94; RESP 14; TEMP 36.9; O2SAT 95
--- OUTSIDE RECORDS SUMMARY | 2023-12-15 15:47 | XMS_ITS | Encounter Summary ---
Author Organization [facility] [place] [address] Care Team Providers Care Radiochemical Technician Name Role Phone Lisa Mayorga MD Primary Care Provider [phone] Reason for Visit * Auth/Cert Specialty Diagnoses / Procedures Referred By Sheba t Referred To Contact Diagnoses Ulcerative colitis, unspecified with unspecified complications ulcerative colitis Procedures PRO SIGMOIDOSCOPY, DIAGNOSTIC PRO ANESTH, LWR INTESTINE, NOS SIGMOIDOSCOPY, FLEXIBLE W/WO SPECIMEN BY BRUSHING OR WASHING (WRVU 0.84) Referral ID Status Reason Start Date Expiration Date Visits Re quested Visits Authorized [id number] 1 1 Encounter Details Date Type Department Care Team (Late st Contact Info) Description 06/09/2019 9:56 AM EST Anesthesia [place] [address] [place] [address] Anesthesia Record Procedure Summary Procedure Name Responsible Anesthesiologist Anesthesia Start Time Anesthesia Stop Time SIGMOIDOSCOPY, FLEXIBLE W/WO SPECIMEN BY BRUSHING OR WASHING (WRVU 0.84) (Trunk) Johnathon Cote CRNA 06/09/19 0956 06/09/19 1011 Events Date Time Event Comment 06/09/2019 0953 0954 AN Verify 0956 Start 0959 An Start Data 0959 Anesthesia Ready 1005 an stop data 1006 Recovery or ICU Handoff Hilda ent care was transferred to the destination unit staff after review of the patient's medical history, current anesthetic/surgical status and plan, according to the Provider Handoff Checklist. 1011 Stop Meds Name Total IV Lidocaine 20 mg Propofol 100 mg lactated ringers infusion 200 mL * Agents Name O2 Air N2O O2 Auxiliary Flowmeter 1 * Blood No blood administrations on file. Lines, Drains, and Airways Type Details Placement Removal Ileostomy 03/23/13; ileostomy 03/23/13 000 0 by Lauren Torres RN Incision 03/23/13; abdomen; 01/28/22 (LDA cleanup utility RA#[id number]); 1715 (LDA cleanup utility RA#[id number]) 03/23/13 0000 by Kelsie Kitchen RN 01/28/22 1715 by Marybeth Kitchen Incision 10/07/17; 1249; hand ; 01/28/22 (LDA cleanup utility RA#[id number]); 1715 (LDA cleanup utility RA#[id number]) 10/07/17 1249 by Anu Justice RN 01/28/22 1715 by Marybeth Kitchen (RETIRED) Peripheral IV Line - Single Lumen 06/09/19; 0951; cephalic vein (lateral side of arm), left; ovmx-vov-atstma catheter system; 20 gauge; Roxana CASTRO; distraction; no longer indicated, removed per policy/procedure, site care per policy/procedure, catheter/device intact; 06/09/19; 1040 06/09/19 0951 by Heike Avalos RN 06/09/19 1040 by Shelli Lyn RN documented in this encounter Social History Tobacco Use Types Packs/Day Years Used Date Smoking Tobacco: Former Cigarettes 1 10 1 06/02/1996 - 04/02/2007 Smokeless Tobacco: Never Alcohol Use Standard Drinks/Week Comments No 0 (1 standard drink = 0.6 oz pur e alcohol) Sex and Gender Information Value Date Recorded Sex Assigned at Not on file Gender Identity Not on file Sexual Orientation Not on file documented as of this encounter OR Notes * Anesthesia Postprocedure Evaluation - Johnathon Cote CRNA - 06/09/2019 10:11 AM EST Department of Anesthesiology Post-procedure Note Patient: Mic Argueta Jr. Procedure Summary Date: 06/09/19 Room / Location: [facility] PROCEDURES / [facility] MAIN OR Anesthesia Start: 955 Anesthesia Stop: 101 Procedure: SIGMOIDOSCOPY, FLEXIBLE W/WO SPECIMEN BY BRUSHING OR WASHING (WRVU 0.84) (N/A Trunk) Diagnosis: Severe chronic ulcerative colitis with complication (ulcerative colitis) Surgeon: Dylan Zhong MD Responsible Provider: Johnathon Cote CRNA Anesthesia Type: general ASA Status: 2 All Anesthesia Providers: LATIA Independent: Johnathon Cote CRNA Vitals Value Taken Time BP 124/64 Temp 37 Pulse 83 Resp 16 SpO2 97% Pain Level Patient Location: PACU/[facility] Level of Consciousness: Awake and Alert Pain Management: Satisfactory Analgesia PONV: None Cardiovascular Status: At Baseline and Hemodynamically Stable Respiratory Status: At Baseline and Supplemental O2 (NC or FM) Postoperative Fluid Status: Intravascular EUvolemia Possible Anesthetic Complications: NONE apparent at time of evaluation Final Primary Anesthesia Type: General (The anesthetic type performed was the same as planned.) Comments: Vital signs stable, report to RN using checklist. Johnathon Cote CRNA * Anesthesia Preprocedure Evaluation - Johnathon Cote CRNA - 05/31/2019 11:26 AM EST Pre-Anesthesia Evaluation for: Mic Argueta . a 49 y.o. male. Procedure(s): SIGMOIDOSCOPY, FLEXIBLE W/WO SPECIMEN BY BRUSHING OR WASHING (WRVU 0.84) Patient Active Problem List Diagnosis ??? s/p excisional biopsy of mass of right palm 10/07/17 ([place]) ??? Trigger thumb of both thumbs ??? Atrial fibrillation S/p ablation x2 ??? Asthma ??? Depression ??? Ulcerative (chronic) enterocolitis ??? Tremor Age at onset 38 with left foot tremor, then right then upper extremity. Partially responsive to klonopin and now gabapentin. Negative ceruloplasmin. Past Medical History: Diagnosis Date ??? Anxiety ??? Asthma ??? Colon polyps Past Surgical History: Procedure Laterality Date ??? PRO COLONOSCOPY, BIOPSY 12/24/2011 COLONOSCOPY FLEXIBLE, WITH BX performed by ANDREW BRADLEY at [facility] ENDOSCOPY ??? PRO COLONOSCOPY, BIOPSY 01/11/2013 COLONOSCOPY FLEXIBLE, WITH BX performed by Johnathon Esparza MD at [facility] ENDOSCOPY ??? PRO COLONOSCOPY, DIAGNOSTIC 01/11/2013 COLONOSCOPY, DIAGNOSTIC performed by Johnathon Esparza MD at [facility] ENDOSCOPY ??? PRO EXC, TUMOR, SOFT TISSUE///VASCUL MALFORM, HAND/FINGER, SUBFASCIAL, 1.5CM OR GREATER Right 10/07/2017 EXCISION, TUMOR, SOFT TISSUE OR VASCULAR MALFORMATION OF HAND OR FINGER, SUBFASCIAL (EG. INTRAMUSCULAR); 1.5 CM OR GREATER (WRVU 7.13) performed by Vinh Barrett MD at [facility] OSC ??? PRO REMOVAL COLON/ILEOSTOMY 03/23/2013 @COLECTOMY, TOTAL WITH ILEOSTOMY performed by Johnathon Esparza MD at [facility] MAIN OR Social History Tobacco Use ??? Smoking status: Former Smoker Packs/day: 1.00 Years: 10.00 Pack years: 10.00 Types: Cigarettes Last attempt to quit: 04/02/2007 Years since quittin.1 ??? Smokeless tobacco: Never Used Substance Use Topics ??? Alcohol use: No Social History Substance and Sexual Activity Drug Use No Allergies Allergen Reactions ??? Nsaids (Non-Steroidal Anti-Inflammatory Drug) Other (See Comments) Tongue swelling Medications: MAR and/or home medications have been reviewed. Physical Exam: There were no vitals filed for this visit. There is no height or weight on file to calculate BMI. Airway Assessment: Mallampati: II TM distance: >3 FB Neck ROM: full Cardiovascular Assessment: cardiovascular exam normal Pulmonary Assessment: pulmonary exam normal Dental Assessment: - normal exam Misc Assessment: Patient is wearing No contact(s). IV access: Peripheral line Anesthesia Plan: ASA 2 general, with a(n) intravenous induction Patient consents to General Anesthetic after discussion of risks, benefits and questions answered. Informed Consent: Anesthetic plan and risks discussed with patient. PAT Clinic Note documented in this encounter Plan of Treatment Not on file documented as of this encounter Visit Diagnoses Not on filedocumented in this encounter Administered Medications Inactive Administered Medications - up to 3 most recent administrations Medication Order MAR Action Action Date Dose Rate Site lidocaine (PF) (XYLOCAINE) 100 mg/5 mL (2 %) injection PRN, Starting on Fri06/09/19 at 0959, Until Fri06/09/19 at 1011, Anesthesia Intra-op, Routine Given 06/09/2019 9:59 AM EST 20 mg propofol (DIPRIVAN) 10 mg/mL bolus injection (Anesthesia) PRN, Starting on Fri06/09/19 at 0959, Until Fri06/09/19 at 1011, Anesthesia Intra-op Given 06/09/2019 9:59 AM EST 100 mg documented in this encounter Care Teams Radiochemical Technician Relationship Specialty Start Date End Date Lisa Mayorga MD [address] [place] [address] PCP - General 05/24/11 documented as of this encounter
--- OUTSIDE RECORDS SUMMARY | 2023-12-15 15:47 | XMS_ITS | Encounter Summary ---
Author Organization [facility] [place] [address] Care Team Providers Care General Office Clerk Name Role Phone Lisa Mayorga MD Primary Care Provider [phone] Encounter Details Date Type Department Care Team (Late st Contact Info) Description 03/30/2019 Abstract Surgical Specialties at [facility] [place] [address] Yusuf Dela Cruz, [facility] Social History Tobacco Use Types Packs/Day Years [...] on file documented as of this encounter Last Filed Vital Signs Vital Sign Reading Time Taken Comments Blood Pressure - - Pulse - - Temperature - - Respiratory Rate - - Oxygen Saturation - - Inhaled Oxygen Concentration - - Weight 81.6 kg (180 lb) 03/30/2019 10:46 AM EDT Height 172.7 cm (5' 8) 03/30/2019 10:46 AM EDT Body Mass Index 27.37 03/30/2019 10:46 AM EDT documented in this encounter Plan of Treatment Not on file documented as of this encounter Visit Diagnoses Not on filedocumented in this encounter Care Teams General Office Clerk Relationship Specialty Start Date End Date Lisa Mayorga MD [address] [place] [address] PCP - General 05/24/11 documented as of this encounter
--- OUTSIDE RECORDS SUMMARY | 2023-12-15 15:47 | XMS_ITS | Encounter Summary ---
[place] [address] Care Team Providers Care Financial Reporting Accountant Name Role Phone Lisa Mayorga MD Primary Care Provider [phone] Reason for Referral * Consultation (Routine) - Closed Specialty Diagnoses / Procedures Referred By Sheba childs Referred To Contact General Surgery Diagnoses Ileostomy status Personal history of unspecified digestive disease Acquired absence of large intestine Anal or rectal pain Essential (primary) hypertension Moderate persistent asthma without complication Personal history of nicotine dependence Hyperlipidemia, unspecified hyperlipidemia type Shelli Lang DO [address] [place] [address] [place] [address] [facility] [address] [place] [id number] Referral ID Status Reason Start Date Expiration Date V isits Requested Visits Authorized [id number] Closed Consult, Test & Treat PCP Updated and/or Approved 09/13/2022 09/13/2023 6 6 Encounter Details Date Type Department Care Team (Latest Contact Info) Description 09/13/2022 Transcribe Orders eDH Incoming Referrals [phone] Shelli Lang [address] [place], [place] [id number] Ileostomy status; Personal history of unspecified digestive disease; Acquired absence of large intestine; Anal or rectal pain; Essential (primary) hypertension; Moderate persistent asthma without complication; Personal history of nicotine dependence; Hyperlipidemia, unspecified hyperlipidemia type Social History Tobacco Use Types Packs/Day Years [...] on file documented as of this encounter Plan of Treatment Scheduled Referrals Name Type Priority Associated Diagnoses Orde r Schedule Referral to Colorectal Surgery Outpatient Referral Routine Ileostomy status Personal history of unspecified digestive disease Acquired absence of large intestine Anal or rectal pain Essential (primary) hypertension Moderate persistent asthma without complication Personal history of nicotine dependence Hyperlipidemia, unspecified hyperlipidemia type Ordered: 09/13/2022 documented as of this encounter Visit Diagnoses Diagnosis Ileostomy status Personal history of unspecified digestive disease Acquired absence of large intestine Acquired absence of intestine (large) (small) Anal or rectal pain Essential (primary) hypertension Unspecified essential hypertension Moderate persistent asthma without complication Unspecified asthma Personal history of nicotine dependence Personal history of tobacco use, presenting hazards to health Hyperlipidemia, unspecified hyperlipidemia type documented in this encounter Care Teams Financial Reporting Accountant Relationship Specialty Start Date End Date Lisa Mayorga MD [address] [place] [address] PCP - General 05/24/11 documented as of this encounter
--- OUTSIDE RECORDS SUMMARY | 2023-12-15 15:47 | XMS_ITS | Encounter Summary ---
Author Organization [facility] [place] [address] Care Team Providers Care Central Service Technician Name Role Phone Lisa Mayorga MD Primary Care Provider [phone] Encounter Details Date Type Department Care Team (Late st Contact Info) Description 03/30/2019 Notes Only Surgical Specialties at [facility] [address] [place] [id number] Jen Monk, RN Social History Tobacco Use Types Packs/Day Years [...] on file documented as of this encounter Progress Notes * Jen Monk, RN - 03/30/2019 11:10 AM EDT [facility] Surgical Specialties Mic Argueta Jr. 1970 PCP: Lisa Mayorga MD Procedure: colonoscopy Indication: ulcerative colitis Vitals Abstract from 03/30/2019 in Surgical Specialties at [facility] Weight 81.6 kg (180 lb) Height 172.7 cm (5' 8) BSA (Calculated - sq m) 1.98 sq meters BMI (Calculated) 27.37 Medical Alerts [x] None [] Diabetic: [] on oral medication? [] on insulin? [] Anticoagulants: [] Coumadin [] Plavix [] Other: [] Latex allergy [] Other: Anesthesia Authorization ICD 10 code(s): [] Hypertension E11.9 [] Obesity E66.01 [] Morbid obesity E66.01 [] Sleep apnea G47.33 [x] Other: ilieostomy IJen RN, have reviewed and reconciled the patient's medical history and EMR; and it is acceptable to proceed with the scheduled procedure. documented in this encounter Plan of Treatment Not on file documented as of this encounter Visit Diagnoses Not on filedocumented in this encounter Care Teams Central Service Technician Relationship Specialty Start Date End Date Lisa Mayorga MD [address] [place] [address] PCP - General 05/24/11 documented as of this encounter
--- OUTSIDE RECORDS SUMMARY | 2023-12-15 15:47 | XMS_ITS | Encounter Summary ---
Author Organization [facility] Address [facility] [place] [address] Care Team Providers Care Rattle Leak And Squeak Repairer Name Role Phone Lisa Mayorga MD Primary Care Provider [phone] Reason for Visit * Auth/Cert Specialty Diagnoses / Procedures Referred By Sheba t Referred To Contact Diagnoses Ulcerative colitis, unspecified with unspecified complications ulcerative colitis Procedures PRO SIGMOIDOSCOPY, DIAGNOSTIC PRO ANESTH, LWR INTESTINE, NOS SIGMOIDOSCOPY, FLEXIBLE W/WO SPECIMEN BY BRUSHING OR WASHING (WRVU 0.84) Referral ID Status Reason Start Date Expiration Date Visits Re quested Visits Authorized [id number] 1 1 Encounter Details Date Type Department Care Team (Late st Contact Info) Description 06/09/2019 10:30 AM EST - 06/09/2019 11:15 AM EST Surgery Operating Room [facility] [place] [address] Dylan Zhong MD [facility] [place] [address] SIGMOIDOSCOPY, FLEXIBLE W/WO SPECIMEN BY BRUSHING OR WASHING (WRVU 0.84) Social History Tobacco Use Types Packs/Day Years [...] Sign Reading Time Taken Comments Blood Pressure 145/90 06/09/2019 10:33 AM EST Pulse 75 06/09/2019 10:33 AM EST Temperature 37 ??C (98.6 ??F) 06/09/2019 10:08 AM EST Respiratory Rate 16 06/09/2019 10:33 AM EST Oxygen Saturation 97% 06/09/2019 10:33 AM EST Inhaled Oxygen Concentration - - Weight 81.6 kg (180 lb) 06/09/2019 9:45 AM EST Height 172.7 cm (5' 8) 06/09/2019 9:45 AM EST Body Mass Index 27.37 06/09/2019 9:45 AM EST documented in this encounter Discharge Instructions * Discharge Instructions* Shelli Lyn RN - 06/09/2019 10:04 AM EST You have just undergone surgery and the following instructions are given to help you have an uneventful recovery: DIET: ??? Avoid alcohol for the next 24 hours, otherwise eat and drink as usual. ACTIVITY ??? On the day of the procedure please have a friend drive you home and escort you into your house.Plan to relax for the next few hours. ??? Do not drive or operate machinery until the day after the procedure. ??? DO NOT make any important personal or business decisions for 24 hours. ??? On the day after your procedure, you may return to your usual activities, unless otherwise instructed. DRIVING RESTRICTIONS: ??? You should not drive until you are pain free and off narcotic pain medication. TREATMENT FOR COMMON AFTER EFFECTS COLONOSCOPY ??? Mild abdominal pain, bloating or excessive gas: rest and eat lightly. ??? Loose bowel movements: these may occur for the next few days, but should return to normal on their own. ??? Please drink plenty of fluids today, preferably water, to keep yourself well hydrated. CALL YOUR PHYSICIAN AT IF: COLONOSCOPY ??? Fever or chills ??? Severe abdominal pain or bloating ??? Heavy rectal bleeding ??? Any questions or problems SMOKING CESSATION INFORMATION: ??? [place] QUITLINE: ??? [place] QUITLINE: ??? [email or web address] If you smoke, stop now! MAKE SURE YOU: ??? Understand these instructions. ??? Will seek medical care if you are feeling poor, or get worse. ??? Will call the office with any questions or concerns at . The above information has been presented or demonstrated. I/we have had the opportunity to ask questions. I/we fully understand the instructions given. I/we have received a copy of this form. documented in this encounter Medications at Time of Discharge Medication Sig Dispensed Refills Start Date End Date Arginine HCl, L-Arginine, 1,000 mg Tablet Take by mouth. CANNABIDIOL, CBD, EXTRACT ORAL Take by mouth 3 times daily. Ostomy Supplies PowdIndications:Attenti on to ileostomy [facility] Stomahesive Powder #25798 Apply dusting of powder on irritated or reddened skin at time of pouch change. Dust excess away and seal with skin prep 1 Bottle 4 04/14/2013 Ostomy Supplies 2 1/4 MiscIndications:[facility]/ Large Moldable Wafer #398122 1 each 12 04/14/2013 Ostomy Supplies MiscIndications:Attenti on to ileostomy [employer] Surfit 2 1/4 drainable pouch #[id number] 1 each 12 04/14/2013 Ostomy Supplies SwabIndications:Attenti on to ileostomy [employer] #[id number] Box of Nosting skin Preps, apply after brushed dusting of powder from your skin. Allow to dry before applying wafer. 1 each 4 04/14/2013 albuterol (PROVENTIL HFA;VENTOLIN HFA) 90 mcg/actuation inhaler Inhale 2 puffs into the lungs 4 times daily as needed. Use with spacer documented as of this encounter Progress Notes * Shelli Lyn RN - 06/09/2019 10:47 AM EST All discharge teaching performed preoperatively. Pt denies needs, questions concerns at this time. Discharged with all personal belongings in his possession. * Heike Avalos RN - 06/09/2019 9:54 AM EST Discharge instructions reviewed, all questions answered. documented in this encounter H&P Notes * Dylan Zhong MD - 06/09/2019 9:55 AM EST Patient Name: Mic Argueta Jr. Patient Age: 49 y.o. Birthdate: 1970 Admit date: 06/09/2019 Attending Physician: Dylan Zhong MD Pre-Endoscopy History and Physical Mic Argueta Jr. Date of : 1970 Age: 49 y.o. Date of Procedure: 06/09/2019 Primary care provider: Lisa Mayorga MD Type of Endoscopy: flexible sigmoidoscopy Reason for Procedure: history of total abdominal colectomy for UC, rectal stump surveillance Type of Anesthesia Anticipated: MAC HPI: Mic is a 49 y.o. male who will be undergoing the above procedure. A history and physical has been performed. The patient's medications and allergies have been reviewed. The risks and benefits of the procedure and the sedation options and risks were discussed with the patient. All questions were answered and informed consent was obtained. He denies a personal or family history of anesthesia complications or bleeding disorders. Allergies Allergen Reactions ??? Nsaids (Non-Steroidal Anti-Inflammatory Drug) Other (See Comments) Tongue swelling @MEDSPRIOR@ Patient Active Problem List Diagnosis Code ??? Tremor R25.1 ??? Ulcerative (chronic) enterocolitis K51.00 ??? Asthma J45.909 ??? Depression F32.9 ??? Atrial fibrillation I48.91 ??? s/p excisional biopsy of mass of right palm 10/07/17 (warhold) L98.9 ??? Trigger thumb of both thumbs M65.311, M65.312 Past Medical History: Diagnosis Date ??? Anxiety ??? Asthma ??? Colon polyps Past Surgical History: Procedure Laterality Date ??? PRO COLONOSCOPY, BIOPSY 12/24/2011 COLONOSCOPY FLEXIBLE, WITH BX performed by ANDREW BRADLEY at [facility] ??? PRO COLONOSCOPY, BIOPSY 01/11/2013 COLONOSCOPY FLEXIBLE, WITH BX performed by Johnathon Esparza MD at [facility] ??? PRO COLONOSCOPY, DIAGNOSTIC 01/11/2013 COLONOSCOPY, DIAGNOSTIC performed by Johnathon Esparza MD at [facility] ??? PRO EXC, TUMOR, SOFT TISSUE///VASCUL MALFORM, HAND/FINGER, SUBFASCIAL, 1.5CM OR GREATER Right 10/07/2017 EXCISION, TUMOR, SOFT TISSUE OR VASCULAR MALFORMATION OF HAND OR FINGER, SUBFASCIAL (EG. INTRAMUSCULAR); 1.5 CM OR GREATER (WRVU 7.13) performed by Vinh Barrett MD at [facility] OSC ??? PRO REMOVAL COLON/ILEOSTOMY 03/23/2013 @COLECTOMY, TOTAL WITH ILEOSTOMY performed by Johnathon Esparza MD at [facility] MAIN OR Social History Tobacco Use ??? Smoking status: Former Smoker Packs/day: 1.00 Years: 10.00 Pack years: 10.00 Types: Cigarettes Last attempt to quit: 04/02/2007 Years since quittin.1 ??? Smokeless tobacco: Never Used Substance Use Topics ??? Alcohol use: No Family History Problem Relation Age of Onset ??? Diabetes Father REVIEW OF SYSTEMS: Review of Systems - negative PHYSICAL EXAM: BP 143/87 Pulse 80 Temp 36.2 ??C (97.2 ??F) Resp 18 Ht 172.7 cm (5' 8) Wt 81.6 kg (180 lb) SpO2 99% BMI 27.37 kg/m?? @BMIHIS@ GENERAL APPEARANCE: healthy and alert MENTAL STATUS: alert AIRWAY EXAM: Mallampatti 2 RESP: clear CV: rrr GI: soft IMPRESSION ASA Class 2 Mic Argueta Jr. is a 49 y.o. male who will be undergoing a colonoscopy with possible intervention. We discussed the benefits of the procedure. We discussed the rare risks of the procedure including: perforation, bleeding, heart or lung complication, adverse reaction to medications, and missed polyp or cancer. The patient understands the risks, benefits, and alternatives and wishes to proceed. PLAN: Plan for colonoscopy with possible intervention. The above has been forwarded to the consulting provider. documented in this encounter Miscellaneous Notes * Op Note - Dylan Zhong MD - 06/09/2019 10:27 AM EST [facility] Oper[facility] [place] Patient Name: Mic Argueta Jr. : [id number] MR#: [id number] Case Date: 06/09/2019 Surgeon: Surgeon(s) and Role: * Dylan Zhong MD - Primary Preoperative diagnosis: ulcerative colitis Postoperative diagnosis: ulcerative colitis Procedure(s): SIGMOIDOSCOPY, FLEXIBLE W/WO SPECIMEN BY BRUSHING OR WASHING (WRVU 0.84) Please see Provation report for details. documented in this encounter Plan of Treatment Not on file documented as of this encounter Procedures Procedure Name Priority Date/Time Associated Diagnosis Comments SURGICAL PATHOLOGY REPORT Routine 06/09/2019 10:05 AM EST SPECIMEN TO PATHOLOGY Routine 06/09/2019 10:05 AM EST Sigmoidoscopy, Diagnostic (72640) 06/09/2019 9:57 AM EST Severe chronic ulcerative colitis with complication FLEXIBLE SIGMOIDOSCOPY Routine 06/09/2019 9:47 AM EST documented in this encounter Results * Surgical Pathology Report (06/09/2019 10:05 AM EST) Surgical Pathology Report [id number] ? Location: [facility]; [address] The signing pathologist has (i) examined the relevant preparation(s) for the specimen(s) and (ii) rendered or confirmed the diagnosis(es). . ?Surgical Pathology DIAGNOSIS Rectum, ??biopsy: Severely active chronic proctitis with ulceration. No dysplasia is seen. Electronically signed by: ??Rudy Crow MD Verified: ??06/10/2019 ?Pathologist Performed at: ??-[facility] Dept. of Pathology, [place], [place] CLINICAL INFORMATION Specimen Submitted: A - Rectum Clinical History and Diagnosis: History of ulcerative colitis SPECIMEN PROCESSING A - Labeled/Fixativ e: Rectum, formalin. Quantity/Size: Three, ranging 0.3-0.4 cm. Tissue Description: Soft, pink-red tissues. Sections/Proces sing: Submitted en toto ??in 1 cassette labeled A1. ??MLL [facility] 06/09/2019 10:0 5 AM EST Narrative Resulting Agency Comment Spec In Lab / APD Dylan Zhong MD PATHOLOGY/CYTOLOGY O [place] Performing Organization Address [facility] Co de Phone Number [facility] [place] [address] * Specimen to Pathology (06/09/2019 10:05 AM EST) AP Specimen 06/09/2019 10:0 5 AM EST 06/09/2019 3:25 PM EST Narrative [facility] - 06/09/2019 3:25 PM EST Specimen requisition ordered. ??Separate Pathology report to follow Resulting Agency Comment Spec In Lab / APD Dylan Zhong MD PATHOLOGY/CYTOLOGY [place] Performing Organization Address [facility] de Phone Number [facility] [place] [address] * FLEXIBLE SIGMOIDOSCOPY (06/09/2019 9:47 AM EST) FLEXIBLE SIGMOIDOSCOPY [facility] Endoscopy Procedure Date: 06/09/2019 9:47 AM ? Patient Name: Mic Argueta ? Date of : 1970 ? Age: 49 ? Order #: [id number] ? Instrument Name: [id number] ? Procedure: ? Flexible Sigmoidoscopy Indications: ? High risk colon cancer surveillance: ? Ulcerative proctitis Providers: ? Dylan Zhong Referring MD: ? Medicines: ? Propofol per Anesthesia Complications: ? No immediate complications. Procedure: ? Pre-Anesthesia Assessment: ? - Prior to the procedure, a History ? and Physical was performed, and ? patient medications and allergies ? were reviewed. The patient is ? competent. The risks and benefits of ? the procedure and the sedation ? options and risks were discussed with ? the patient. All questions were ? answered and informed consent was ? obtained. Patient identification and ? proposed procedure were verified by ? the physician, the nurse and the ? belt turner in the pre-procedure ? area. Mental Status Examination: ? alert and oriented. Airway ? Examination: normal oropharyngeal ? airway and neck mobility. Respiratory ? Examination: clear to auscultation. ? CV Examination: normal. Prophylactic ? Antibiotics: The patient does not ? require prophylactic antibiotics. ? Prior Anticoagulants: The patient has ? taken no previous anticoagulant or ? antiplatelet agents. ASA Grade ? Assessment: II - A patient with mild ? systemic disease. After reviewing the ? risks and benefits, the patient was ? deemed in satisfactory condition to ? undergo the procedure. The anesthesia ? plan was to use monitored anesthesia ? care (MAC). Immediately prior to ? administration of medications, the ? patient was re-assessed for adequacy ? to receive sedatives. The heart rate, ? respiratory rate, oxygen saturations, ? blood pressure, adequacy of pulmonary ? ventilation, and response to care ? were monitored throughout the ? procedure. The physical status of the ? patient was re-assessed after the ? procedure. ? The procedure, indications, benefits, ? risks and alternatives were explained ? to the patient. Specifically ? discussed were potential ? complications including, but not ? limited to, bleeding, perforation, ? infection, missing a cancer, and ? adverse medication reactions. The ? patient was placed in the left ? lateral decubitus position, and a ? digital rectal exam was performed. ? The Colonoscope was inserted in the ? anus and under direct visualization, ? advanced to the rectum. Careful ? inspection was made as the scope was ? withdrawn. The flexible sigmoidoscopy ? was accomplished without difficulty. ? The patient tolerated the procedure ? well. The quality of the bowel ? preparation was not applicable. ? Findings: ? The perianal and digital rectal examinations were ? normal. ? A continuous area of bleeding ulcerated mucosa with ? stigmata of recent bleeding was present in the ? rectum. Biopsies were taken with a cold forceps for ? histology. Verification of patient identification for ? the specimen was done by the physician and nurse. ? Estimated blood loss was minimal. ? A benign-appearing, intrinsic mild stenosis measuring ? 10 cm (in length) x 1 cm (inner diameter) was found ? in the rectum and was traversed. ? Impression: ?- Mucosal ulceration. Biopsied. ? - Stricture in the rectum. Recommendation: ?- Patient has a contact number ? available for emergencies. The signs ? and symptoms of potential delayed ? complications were discussed with the ? patient. Return to normal activities ? tomorrow. Written discharge ? instructions were provided to the ? patient. ? - Resume previous diet. ? - Return to my office as previously ? scheduled. ? Procedure Code(s): ?? --- Professional --- ? 46505, 52, Sigmoidoscopy, flexible; ? with biopsy, single or multiple CPT copyright 2017 [employer]. All rights reserved. The codes documented in this report are preliminary and upon veterinary laboratory diagnostician review may be revised to meet current compliance requirements. _ Dylan Zhong, 06/09/2019 10:10:22 AM Number of Addenda: 0 Note Initiated On: 06/09/2019 9:47 AM PROVATION 06/09/2019 9:47 AM EST Dylan Zhong MD GENERAL SURGICAL ORD ERABLES PROVATION documented in this encounter Visit Diagnoses Diagnosis Severe chronic ulcerative colitis with complication documented in this encounter Administered Medications Inactive Administered Medications - up to 3 most recent administrations Medication Order MAR Action Action Date Dose Rate Site lactated ringers infusion 1,000 mL, at 50 mL/hr, Intravenous, CONTINUOUS, Starting on 06/09/19 at 1015, Until Fri06/09/19 at 1051, Day of Surgery (Day of Procedure) New Bag 06/09/2019 9:51 AM EST 1,000 mLs 50 mL/hr documented in this encounter Active and Recently Administered Medications Times are shown in EST. Continuous Medication Order 06/07/2019 06/08/2019 06/09/2019 lactated ringers infusion (CANCELED) 1,000 mL, at 50 mL/hr, Intravenous, CONTINUOUS, Starting on Fri06/09/19 at 1015, Until Fri06/09/19 at 1051, Day of Surgery (Day of Procedure) 0951 (New Bag - Prov ider: Heike Avalos RN)1005 (Anesthesia Volume Adjustment - Provider: Johnathon Cote CRNA) documented in this encounter Care Teams Rattle Leak And Squeak Repairer Relationship Specialty Start Date End Date Lisa Mayorga MD [address] [place] [address] PCP - General 05/24/11 documented as of this encounter
--- OUTSIDE RECORDS SUMMARY | 2023-12-15 15:47 | XMS_ITS | Encounter Summary ---
Author Organization [facility] Address [facility] [place] [address] Care Team Providers Care Installer Technician Name Role Phone Lisa Mayorga MD Primary Care Provider [phone] Reason for Visit * Auth/Cert Specialty Diagnoses / Procedures Referred By Sheba t Referred To Contact Diagnoses Ulcerative colitis, unspecified with unspecified complications ulcerative colitis Procedures PRO SIGMOIDOSCOPY, DIAGNOSTIC PRO ANESTH, LWR INTESTINE, NOS SIGMOIDOSCOPY, FLEXIBLE W/WO SPECIMEN BY BRUSHING OR WASHING (WRVU 0.84) Referral ID Status Reason Start Date Expiration Date Visits Re quested Visits Authorized [id number] 1 1 Encounter Details Date Type Department Care Team (Latest Contact Info) Description 06/09/2019 9:36 AM EST - 06/09/2019 10:47 AM EST Hospital Encounter Post Acute Care Unit at [facility] [place] [address] Dylan Zhong MD [facility] [place] [address] Discharge Disposition: Home Social History Tobacco Use Types Packs/Day Years [...] encounter Discharge Instructions * Discharge Instructions* Shelli Lyn, RN - 06/09/2019 10:04 AM EST You [...] questions or problems SMOKING CESSATION INFORMATION: ??? [place] QUITLINE: ??? [place] QUITLINE: ??? [email or web address] If you smoke, stop now! MAKE SURE [...] daily. Ostomy Supplies PowdIndications:Attenti on to ileostomy [facility] Stomahesive Powder #80789 Apply dusting of powder on irritated or reddened skin at time of pouch change. Dust excess away and seal with skin prep 1 Bottle 4 04/14/2013 Ostomy Supplies 2 1/ MiscIndications:Attenti on to ileostomy [facility] Sur[facility] 1/ Large Moldable Wafer #457549 1 each 12 04/14/2013 Ostomy Supplies MiscIndications:Attenti on to ileostomy [facility] Surfit 2 1/ drainable pouch #[id number] 1 each 12 04/14/2013 Ostomy Supplies SwabIndications:Attenti on to ileostomy [employer] #[id number] Box of Nosting skin Preps, apply after [...] WITH BX performed by ANDREW BRADLEY at [facility] ??? PRO COLONOSCOPY, BIOPSY 01/11/2013 COLONOSCOPY FLEXIBLE, WITH BX performed by Johnathon Esparza MD at [facility] ??? PRO COLONOSCOPY, DIAGNOSTIC 01/11/2013 COLONOSCOPY, DIAGNOSTIC performed by Johnathon Esparza MD at [facility] ??? PRO EXC, TUMOR, SOFT TISSUE///VASCUL MALFORM, HAND/FINGER, SUBFASCIAL, 1.5CM OR GREATER Right 10/07/2017 EXCISION, TUMOR, SOFT TISSUE OR VASCULAR MALFORMATION OF HAND OR FINGER, SUBFASCIAL (EG. INTRAMUSCULAR); 1.5 CM OR GREATER (WRVU 7.13) performed by Vinh Barrett MD at [facility] OSC ??? PRO REMOVAL COLON/ILEOSTOMY 03/23/2013 @COLECTOMY, TOTAL WITH ILEOSTOMY performed by Johnathon Esparza MD at [facility] MAIN OR Social History Tobacco Use [...] Zhong MD - 06/09/2019 10:27 AM EST [facility] Operative Note Patient Name: Mic Argueta Jr. : [id number] MR#: [id number] Case Date: 06/09/2019 Surgeon: Surgeon(s) and Role: [...] Routine 06/09/2019 10:05 AM EST Sigmoidoscopy, Diagnostic (98238) 06/09/2019 9:57 AM EST Severe chronic ulcerative colitis with complication FLEXIBLE SIGMOIDOSCOPY Routine 06/09/2019 9:47 AM EST documented in this encounter Results * Surgical Pathology Report (06/09/2019 10:05 AM EST) Surgical Pathology Report [id number] ? Location: [facility]; [address] The signing pathologist has (i) examined the relevant preparation(s) for the specimen(s) and (ii) rendered or confirmed the diagnosis(es). . ?Surgical Pathology DIAGNOSIS Rectum, ??biopsy: Severely active chronic proctitis with ulceration. No dysplasia is seen. Electronically signed by: ??Rudy Crow MD Verified: ??06/10/2019 ?Pathologist Performed at: ??-[facility] Dept. of Pathology, [place], [place] CLINICAL INFORMATION Specimen Submitted: A - Rectum Clinical History and Diagnosis: History of ulcerative colitis SPECIMEN PROCESSING A - Labeled/Fixativ e: Rectum, formalin. Quantity/Size: Three, ranging 0.3-0.4 cm. Tissue Description: Soft, pink-red tissues. Sections/Proces sing: Submitted en toto ??in 1 cassette labeled A1. ??MLL [facility] 06/09/2019 10:0 5 AM EST Narrative Resulting Agency Comment Spec In Lab / APD Dylan Zhong MD PATHOLOGY/CYTOLOGY O [place] Performing Organization Address [facility] de Phone Number [facility] [place] [place] [address] * Specimen to Pathology (06/09/2019 10:05 AM EST) AP Specimen 06/09/2019 10:0 5 AM EST 06/09/2019 3:25 PM EST Narrative [facility] - 06/09/2019 3:25 PM EST Specimen requisition ordered. ??Separate Pathology report to follow Resulting Agency Comment Spec In Lab / APD Dylan Zhong MD PATHOLOGY/CYTOLOGY Shahbaz NOLEN Performing Organization Address [facility] de Phone Number [facility] [place] [address] * FLEXIBLE SIGMOIDOSCOPY (06/09/2019 9:47 AM EST) FLEXIBLE SIGMOIDOSCOPY [facility] Endoscopy Procedure Date: 06/09/2019 9:47 AM ? Patient Name: Mic Argueta ? Date of : 1970 ? Age: 49 ? Order #: [id number] ? Instrument Name: [id number] ? Procedure: ? Flexible Sigmoidoscopy Indications: ? [...] the physician, the nurse and the ? civil defense director in the pre-procedure ? area. Mental Status [...] Procedure Code(s): ?? --- Professional --- ? 99494, 52, Sigmoidoscopy, flexible; ? with biopsy, single or multiple CPT copyright 2017 [employer]. All rights reserved. The codes documented in this report are preliminary and upon dirt bike mechanic review may be revised to meet current compliance requirements. _ Dylan Zhong, 06/09/2019 10:10:22 AM Number of Addenda: 0 Note Initiated On: 06/09/2019 9:47 AM PROVATION 06/09/2019 9:47 AM EST Dylan Zhong MD GENERAL SURGICAL ORD ERABLES PROVATION documented in this encounter Visit Diagnoses Not on filedocumented [...] CRNA) documented in this encounter Care Teams Installer Technician Relationship Specialty Start Date End Date Lisa Mayorga MD [address] [place] [address] PCP - General 05/24/11 documented as of this encounter
--- OUTSIDE RECORDS SUMMARY | 2023-12-15 15:47 | XMS_ITS | Encounter Summary ---
Author Organization [facility] [place] [place] [address] Care Team Providers Care Manager Sales Training Name Role Phone Lisa Mayorga MD Primary Care Provider [phone] Encounter Details Date Type Department Care Team (Late st Contact Info) Description 03/26/2019 Notes Only Surgical Specialties at [facility] [place] [address] Hamilton Carlisle Social History Tobacco Use Types Packs/Day Years [...] as of this encounter Progress Notes * Hamilton Carlisle - 03/26/2019 11:39 AM EDT Mic Argueta Jr. 1970 Preferred contact #: [phone] Scheduled for: 06/09/19 Provider: [x] [] [] Procedure:colonoscopy - flex sig ICD-10 Code(s): K51.90 Diagnoses: Ulcerative colitis Screening packet received on: 03/24/19 Verified Demographics on:03/26/19 Recieved insurance referral on:02/22/19 Entered referral on: 02/22/19 Verified insurance on:03/26/19 Copy of insurance card received? No Referring provider: Trevin PCP: Lisa Mayorga MD Special request notes : Home support person: Sary Argueta [phone] documented in this encounter Plan of Treatment Not on file documented as of this encounter Visit Diagnoses Not on filedocumented in this encounter Care Teams Manager Sales Training Relationship Specialty Start Date End Date Lisa Mayorga MD [address] [place] [address] PCP - General 05/24/11 documented as of this encounter
--- OUTSIDE RECORDS SUMMARY | 2023-12-15 15:47 | XMS_ITS | Clinical Summary ---
Author Organization [facility] Address [facility] [place] [address] Care Team Providers Care Hardboard Supervisor Name Role Phone Lisa Mayorga MD Primary Care Provider [phone] Allergies Active Allergy Reactions Criticality Noted Date Comments Nsaids (Non-Steroidal Anti-Inflammatory Drug) Other (See Comments) High 10/07/2017 Tongue swelling Medications Medication Sig Dispensed Refills Start Date End Date Status albuterol (PROVENTIL HFA;VENTOLIN HFA) 90 mcg/actuation inhaler Inhale 2 puffs into the lungs 4 times daily as needed. Use with spacer Active Ostomy Supplies PowdIndications:Att ention to ileostomy Convatec Stomahesive Powder #05093 Apply dusting of powder on irritated or reddened skin at time of pouch change. Dust excess away and seal with skin prep 1 Bottle 4 04/14/2013 Active Ostomy Supplies 2 1/4 MiscIndications:Att ention to ileostomy Convatec Surfit 2 1/4 Large Moldable Wafer #494741 1 each 12 04/14/2013 Active Ostomy Supplies MiscIndications:Att ention to ileostomy Convatec Surfit 2 1/4 drainable pouch #[id number] 1 each 12 04/14/2013 Active Ostomy Supplies SwabIndications:Att ention to ileostomy [employer] #[id number] Box of Nosting skin Preps, apply after brushed dusting of powder from your skin. Allow to dry before applying wafer. 1 each 4 04/14/2013 Active CANNABIDIOL, CBD, EXTRACT ORAL Take by mouth 3 times daily. Active Arginine HCl, L-Arginine, 1,000 mg Tablet Take by mouth. Active Active Problems Problem Noted Date Diagnosed Date s/p excisional biopsy of mas s of right palm 10/07/17 ([place]) 03/16/2014 Trigger thumb of both thumbs 03/16/2014 Atrial fibrillation 03/24/2013 Overview (03/24/2013): S/p ablation x2 Asthma 02/12/2013 Depression 02/12/2013 Ulcerative (chronic) enterocolitis 01/10/2012 Tremor 11/09/2011 Overview (11/09/2011): Age at onset 38 with left foot tremor, then right then upper extremity. Partially responsive to klonopin and now gabapentin. Negative ceruloplasmin. Assessment & Plan (11/09/2011 11:47 AM EDT): Exam shows mostly a postural and action tremor that is symmetric involving the upper and lower extremities. There is also mild peripheral neuropathy that is symmetric involving pinprick/temperature and vibratory and position sense. This could be coincidental or a clue to a larger syndrome that involves tremor and neuropathy. Will check an antibody panel for autoimmune causes given the history of asthma and u/c. As far as treatment is concerned, I believe gabapentin is a useful medication for tremor as well as pain as well as peripheral neuropathy. I am encouraged that there has been some mild improvement after starting gabapentin. I would recommend that we increase the dose to 600 mg 3 times daily increasing one of the doses to 600 mg, and doing this every 3 days until at the 600 mg dose 3 times daily. Would like to re-evaluate in 3 months and decide where to go from there. Other thoughts would be to initiate a trial of primidone. Resolved Problems Problem Noted Date Diagnosed Date Resolved Date Atrial fibrillation 03/24/2013 03/24/20 13 Overview (03/24/2013): S/p ablation x2 Family History Medical History Relation Comments Diabetes Father Relation Status Comments Brother Alive Father Alive Mother Alive Sister Alive Social History Tobacco Use Types Packs/Day Years Used Date Smoking Tobacco: Former Cigarettes 1 10 1 06/02/1996 - 04/02/2007 Smokeless Tobacco: Never Alcohol Use Standard Drinks/Week Comments No 0 (1 standard drink = 0.6 oz pur e alcohol) Sex and Gender Information Value Date Recorded Sex Assigned at Not on file Gender Identity Not on file Sexual Orientation Not on file Last Filed Vital Signs Vital Sign Reading [...] Mass Index 27.37 06/09/2019 9:45 AM EST Plan of Treatment Health Maintenance Due Date Last Done Comments CT Colonography 1970 FIT DNA 1969 FIT test every year (w.Sigmoidoscopy) 1970 FIT 1970 HIV screen 1987 Hepatitis C Screening 1987 Lipid Screening 1987 Hepatitis B vaccine (0-59 yr s) (1) 01/14/1988 Tdap adult 01/14/1988 Tetanus vaccine 01/14/1988 Zoster vaccine (1 of 2) 2019 Colonoscopy 01/11/2023 01/11/2013, 12/31, 01/11/2013, Additional history exists Covid-19 Vaccine ( - 2022-2 4 season) 2023 Influenza (Flu) vaccine (1 o f 1 - Influenza standard series) 02/01/2024 Sigmoidoscopy 06/09/2024 06/09/2019, 06/09/2019 Colorectal Cancer Screening 06/09/2029 Sigmoidoscopy (10 year) with FIT yearly 06/09/2029 06/09/2019, 06/09/2019, 01/11/2013, Additional history exists Diabetes Screening (HgbA1C o r Glucose) Discontinued 03/29/2013, 03/27/2013, 03/26/2013, Additional history exists Procedures Procedure Name Priority Date/Time Associated Diagnosis Comments FLEXIBLE SIGMOIDOSCOPY Routine 0 9:47 AM EST BASIC METABOLIC PANEL (NON-FASTING) STAT 03/29/2013 6:44 AM EDT COLONOSCOPY Routine 01/11/2013 10:09 AM EDT from Last 3 Months or Most Recently Relevant to Health Maintenance Results * FLEXIBLE SIGMOIDOSCOPY (06/09/2019 9:47 AM EST) FLEXIBLE SIGMOIDOSCOPY [facility] Endoscopy Procedure Date: 06/09/2019 9:47 AM ? Patient Name: Mic Argueta ? N: [id number] ? Date of : 1970 ? Age: 49 ? Order #: [id number] ? Instrument Name: [id number] ? Procedure: ? Flexible Sigmoidoscopy Indications: ? [...] the physician, the nurse and the ? saw man in the pre-procedure ? area. Mental Status [...] Procedure Code(s): ?? --- Professional --- ? 51592, 52, Sigmoidoscopy, flexible; ? with biopsy, single or multiple CPT copyright 2017 [employer]. All rights reserved. The codes documented in this report are preliminary and upon dope sprayer review may be revised to meet current compliance requirements. _ Dylan Zhong, 06/09/2019 10:10:22 AM Number of Addenda: 0 Note Initiated On: 06/09/2019 9:47 AM PROVATION 06/09/2019 9:47 AM EST Dylan Zhong MD GENERAL SURGICAL ORD ERABLES PROVATION * (ABNORMAL) Basic Metabolic Panel (non-fasting) (03/29/2013 6:44 AM EDT) Glucose Lvl 106 60 - 199 mg/dL CERNER MILLENNIUM Comment:Diabetes: >=200 mg/d L plus symptoms BUN 18 10 - 20 mg/dL CERNER MILLENNIUM Creatinine 0.91 0.80 - 1.50 mg/dL CERNER MILLENNIUM Comment: Please note that the pediatric reference intervals supplied above were not validated at [facility]. Results from pediatric patients should be interpreted in conjunction to the patient's age, height and muscle mass. Sodium 133(L) 135 - 145 mmol/L CERNER MILLENNIUM Potassium 3.5 3.5 - 5.0 mmol/L CERNER MILLENNIUM Comment: Please note: ??Patients with WBC >100,000 may have falsely elevated Potassium levels. ??For accurate Potassium quantification in these patients send serum separator tube (gold top) for subsequent determinations. ??Contact the Clinical Chemistry Laboratory if there are any questions. Chloride 99 98 - 107 mmol/L CERNER MILLENNIUM CO2 23 22 - 31 mmol/L CERNER MILLENNIUM Anion Gap 11 5 - 15 mmol/L CERNER MILLENNIUM Calcium 8.9 8.5 - 10.5 mg/dL CERNER MILLENNIUM Estimated GFR >60 >=60 CERNER MILLENNIUM Comment: This estimated GFR (eGFR) value was calculated using the MDRD equation which has been validated on patients between the ages of 18 and 70. The MDRD should not be used to assess kidney function in patients < 18 years of age or in patients with extremes of body mass, or in patients with acute kidney failure. This value should be multiplied by 1.2 for patients. For further information please copy and paste the following links into your internet browser. http://www.nkdep.nih.gov/lab-evaluation.shtml http://www.kidney.org/professionals/ Blood specimen (specimen) 03/29/2013 6:44 AM EDT 03/29/2013 6:50 AM EDT Narrative Resulting Agency Comment Spec In Lab Johnathon Esparza MD CHEMISTRY ORDERABLES [facility] * COLONOSCOPY (01/11/2013 10:09 AM EDT) COLONOSCOPY [facility] Endoscopy Patient Name: Mic Argueta ? Procedure Date: 01/11/2013 10:09 AM ? Date of : 1970 ? Age: 42 ? Order #: [id number] ? Procedure: ? Colonoscopy Indications: ? Personal history of ulcerative colitis Providers: ? Johnathon Esparza MD, Nathan Wood, ? RN, Selma Mcintyre, Court Messenger Referring MD: ?Lisa Mayorga MD Medicines: ? Midazolam 5 mg IV, Fentanyl 250 ? micrograms IV Complications: ? No immediate complications. Procedure: ? Pre-Anesthesia Assessment: ? - Mental Status Examination: alert ? and oriented. Airway Examination: ? normal oropharyngeal airway and neck ? mobility. Respiratory Examination: ? clear to auscultation. CV ? Examination: RRR, no murmurs, no S3 ? or S4. ? - ASA Grade Assessment: II - A ? patient with mild systemic disease. ? - After reviewing the risks and ? benefits, the patient was deemed in ? satisfactory condition to undergo the ? procedure. ? - The anesthesia plan was to use ? moderate sedation/analgesia ? (conscious sedation). ? - Immediately prior to administration ? of medications, the patient was ? re-assessed for adequacy to receive ? sedatives. ? - The heart rate, respiratory rate, ? oxygen saturations, blood pressure, ? adequacy of pulmonary ventilation, ? and response to care were monitored ? throughout the procedure. ? - The physical status of the patient ? was re-assessed after the procedure. ? The procedure, indications, benefits, ? [...] under direct visualization, ? advanced to the terminal ileum, with ? identification of the appendiceal ? orifice and IC valve. Careful ? inspection was made as the ? colonoscope was withdrawn. The ? colonoscopy was performed without ? difficulty. The patient tolerated the ? procedure well. The quality of the ? bowel preparation was good. ? Findings: ? The perianal and digital rectal examinations were ? normal. ? The terminal ileum appeared normal, the ICV arreared ? scarred and mildly narrowed. Mucosal biopsies ? obtained from TI. ? Mildly hyperemic mucosa throughout colon with mult ? scarred ulcers, most notable in proximal transverse ? colon/hepatic flexure and left colon. Pseudopolyp ? formation in sigmoid segment, several biopsied. ? Minimal contact friablility in sigmoid segment. ? Disease less active in rectum. ? Biopsies obtained from cecum, ascending colon, ? hepatic flexure, transverse colon, descending colon, ? sigmoid colon and rectum. satisfactory hemostasis. ? Impression: ?- The examined portion of the ileum ? was normal. ? - Extensive pancolonic ulcerative ? colitis, quiescent. This was biopsied. Recommendation: ?- Discharge patient to home. ? - Return to my office [Return day]. ? Johnathon Esparza MD 01/11/2013 11:27 AM This report has been signed electronically. Number of Addenda: 0 Note Initiated On: 01/11/2013 10:09 AM PROVATION 01/11/2013 10:0 9 AM EDT Lisa Mayorga MD GENERAL SURGICAL ORD ERABLES PROVATION from Last 3 Months or Most Recently Relevant to Health Maintenance Advance Directives * Full Code (Latest Code Status on File) Date Activated Date Inactivated Comments 10/07/2017 12:05 PM 10/07/2017 4:40 PM Question Answer Comments Does patient have capacity to make decision: Yes * Full Code Date Activated Date Inactivated Comments 03/23/2013 5:14 PM 03/30/2013 1:04 PM Question Answer Comments Order Status: Initial Order Does patient have decision m aking capacity? Yes, Order is based on Patients wishes. * Full Code Date Activated Date Inactivated Comments 03/23/2013 9:20 AM 03/23/2013 5:14 PM Care Teams Hardboard Supervisor Relationship Specialty Start Date End Date Lisa Mayorga MD [address] [place] [address] PCP - General 05/24/11
--- OUTSIDE RECORDS SUMMARY | 2023-12-15 15:48 | XMS_ITS | Encounter Summary ---
[facility] [place] [address] Care Team Providers Care Emd Special Education Teacher Name Role Phone Lisa Mayorga MD Primary Care Provider [phone] Encounter Details Date Type Department Care Team (Late st Contact Info) Description 04/14/2013 Telephone [place] [address] Ora Hernández RN Social History Tobacco Use Types Packs/Day [...] on file documented as of this encounter Miscellaneous Notes * Telephone Encounter - Ora Hernández - 04/14/2013 10:31 AM EST Pt called and spoke with General Surgery RN yesterday requesting that we send scripts for his ostomy supplies to [facility]. I have printed scripts and will fax them today. documented in this encounter Plan of Treatment Not on file documented as of this encounter Visit Diagnoses Diagnosis Attention to ileostomy- Primary documented in this encounter Care Teams Emd Special Education Teacher Relationship Specialty Start Date End Date Lisa Mayorga MD [address] [place] [address] PCP - General 05/24/11 documented as of this encounter
--- OUTSIDE RECORDS SUMMARY | 2023-12-15 15:48 | XMS_ITS | Encounter Summary ---
Author Organization [facility] [address] Care Team Providers Care Mechanical Maintenance Foreman Name Role Phone Lisa Mayorga MD Primary Care Provider [phone] Reason for Referral * Diagnostic Test (Routine) - Closed Specialty Diagnoses / Procedures Referred By Contac t Referred To Contact Radiology Diagnoses Chronic ulcerative proctitis with rectal bleeding Procedures CT Abdomen & Pelvis w Contrast Dylan Zhong MD [facility] [place] [address] [facility] [place] [address] Referral ID Status Reason Start Date Expiration Date V isits Requested Visits Authorized [id number] Closed Specialty Service Requested 02/22/2019 02/22/2020 1 1 Reason for Visit * Diagnostic Test (Routine) - Closed Specialty Diagnoses / Procedures Referred By Contac t Referred To Contact Radiology Diagnoses Chronic ulcerative proctitis with rectal bleeding Procedures CT Abdomen & Pelvis w Contrast Dylan Zhong MD [facility] [place] [address] [facility] [place] [address] Referral ID Status Reason Start Date Expiration Date V isits Requested Visits Authorized [id number] Closed Specialty Service Requested 02/22/2019 02/22/2020 1 1 Encounter Details Date Type Department Care Team (Latest Contact Info) Description 02/23/2019 4:07 PM EDT - 02/23/2019 11:59 PM EDT Hospital Encounter CT Scan at [facility] [place] [address] Dylan Zhong MD [facility] [place] [address] Chronic ulcerative proctitis with rectal bleeding Discharge Disposition: Home Social History Tobacco Use [...] on file documented as of this encounter Medications at Time of Discharge Medication Sig Dispensed Refills Start Date End Date CANNABIDIOL, CBD, EXTRACT ORAL Take by mouth 3 times daily. Ostomy Supplies PowdIndications:Attenti on to ileostomy Convate Stomahesive Powder #97462 Apply dusting of powder on irritated or reddened skin at time of pouch change. Dust excess away and seal with skin prep 1 Bottle 4 04/14/2013 Ostomy Supplies 2 1/4 MiscIndications:Attenti on to ileostomy Convatec Surfit 2 1/4 Large Moldable Wafer #108425 1 each 12 04/14/2013 Ostomy Supplies MiscIndications:Attenti on to ileostomy Convatec Surfit 2 1/4 drainable pouch #980810 1 each 12 04/14/2013 Ostomy Supplies SwabIndications:Attenti on to ileostomy [employer] #[id number] Box of Nosting skin Preps, apply after brushed dusting of powder from your skin. Allow to dry before applying wafer. 1 each 4 04/14/2013 albuterol (PROVENTIL HFA;VENTOLIN HFA) 90 mcg/actuation inhaler Inhale 2 puffs into the lungs 4 times daily as needed. Use with spacer documented as of this encounter Plan of Treatment Not on file documented as of this encounter Procedures Procedure Name Priority Date/Time Associated Diagnosis Comments CT ABDOMEN AND PELVIS W CONTRAST Routine 02/23/2019 6:43 PM EDT Chronic ulcerative proctitis with rectal bleeding documented in this encounter Results * CT Abdomen & Pelvis w Contrast (02/23/2019 6:43 PM EDT) Anatomical Region Laterality Modality Abdomen, Pelvis Computed Tomogra phy Impressions 02/24/2019 8:55 AM EDT There has been a prior colectomy and ileostomy. A parastomal hernia is present. There is no evidence of obstruction or inflammation involving the hernia. Contrast material administered orally passes through the ostomy. Thank you for letting us participate in the care of this patient. For questions regarding this report, please contact the number below. ? Electronically signed by: Codey Miguel [facility] ([phone]), at 02/24/2019 8:55 AM Narrative 02/24/2019 8:55 AM EDT EXAMINATION: ??CT ABDOMEN AND PELVIS W CONTRAST CLINICAL HISTORY: ??history of total abdominal colectomy with end ileostomy, eval parastomal hernia. TECHNIQUE: Helical CT of the abdomen and pelvis was performed following the intravenous administration of contrast. Administered 95.0 ml of OMNIPAQUE 350.00 mg/ml. Oral contrast was administered. COMPARISON: January 14, 2013 FINDINGS: Lower chest: A small calcified nodule in the azygo-esophageal recess most likely represents a granuloma. This was not included in the field of view of the prior examination. The heart is normal in size. There are no pleural effusions. Liver: Normal size and attenuation without lesions. Bile ducts: Nondilated. Gallbladder: No calcified gallstones. Normal caliber wall. Pancreas: Normal attenuation without ductal dilatation. Spleen: Normal. Adrenals: Normal. Kidneys: The kidneys enhance symmetrically. There is no collecting system dilatation. There is a small focus of decreased attenuation in the lower pole of the right kidney. This has not changed since the study of the 2012 and most likely represents a cyst. Urinary Bladder: Normal. Vasculature: No aneurysm. Mild atherosclerosis. The portal vein and superior mesenteric vein are patent. Lymph Nodes: No enlarged lymph nodes. Bowel: Post-operative changes consistent with a prior colectomy. This colectomy has been performed in the interval since the prior examination. There is an ileostomy in the right lower anterior abdominal wall. A parastomal hernia is present. There is no dilatation of the small bowel. Contrast material has passed through the entire course of small bowel and through the ostomy. There is no inflammation related to the hernia. Peritoneum and mesentery: No ascites, free air, or loculated fluid collection. No mesenteric inflammation. Abdominal wall: Ileostomy as described above. Fat-containing inguinal hernias are seen. Reproductive organs: Normal. Osseous structures: No acute osseous pathology is present. As seen previously, there has been posterior instrumented fusion of L5-S1. Procedure Note Codey Miguel MD - 02/24/2019 EXAMINATION: CT ABDOMEN AND PELVIS W CONTRAST CLINICAL HISTORY: history of total abdominal colectomy with endileostomy, eval parastomal hernia. TECHNIQUE: Helical CT of the abdomen and pelvis was performed followingthe intravenous administration of contrast. Administered 95.0 ml of HMGMGOXOE880.00 mg/ml. Oral contrast was administered. COMPARISON: January 14, 2013 FINDINGS: Lower chest: A small calcified nodule in the azygo-esophageal recess mostlikely represents a granuloma. This was not included in the field of view of theprior examination. The heart is normal in size. There are no pleuraleffusions. Liver: Normal size and attenuation without lesions. Bile ducts: Nondilated. Gallbladder: No calcified gallstones. Normal caliber wall. Pancreas: Normal attenuation without ductal dilatation. Spleen: Normal. Adrenals: Normal. Kidneys: The kidneys enhance symmetrically. There is no collectingsystem dilatation. There is a small focus of decreased attenuation in the lowerpole of the right kidney. This has not changed since the study of the 2012 andmost likely represents a cyst. Urinary Bladder: Normal. Vasculature: No aneurysm. Mild atherosclerosis. The portal vein andsuperior mesenteric vein are patent. Lymph Nodes: No enlarged lymph nodes. Bowel: Post-operative changes consistent with a prior colectomy. Thiscolectomy has been performed in the interval since the prior examination. There isan ileostomy in the right lower anterior abdominal wall. A parastomal herniais present. There is no dilatation of the small bowel. Contrast material haspassed through the entire course of small bowel and through the ostomy. There isno inflammation related to the hernia. Peritoneum and mesentery: No ascites, free air, or loculated fluidcollection. No mesenteric inflammation. Abdominal wall: Ileostomy as described above. Fat-containing inguinalhernias are seen. Reproductive organs: Normal. Osseous structures: No acute osseous pathology is present. As seenpreviously, there has been posterior instrumented fusion of L5-S1. IMPRESSION There has been a prior colectomy and ileostomy. A parastomal hernia ispresent. There is no evidence of obstruction or inflammation involving thehernia. Contrast material administered orally passes through the ostomy. Thank you for letting us participate in the care of this patient. Forquestions regarding this report, please contact the number below. Electronically signed by: Codey Miguel [facility]([phone]), at 02/24/2019 8:55 AM Dylan Zhong MD IMG CT ORDERABLES documented in this encounter Visit Diagnoses Diagnosis Chronic ulcerative proctitis with rectal bleeding Ulcerative (chronic) proctitis documented in this encounter Administered Medications Inactive Administered Medications - up to 3 most recent administrations Medication Order MAR Action Action Date Dose Rate Site iohexol (OMNIPAQUE) 350 mg/mL solution 0-200 mL 0-200 mL, Intravenous, ONCE PRN, 1 dose, Starting on Fri02/23/19 at 1843, Until Fri02/23/19 at 184, Per Protocol, Warning Vesicant/Irritant Medication , Radiology Contrast, Routine Given 02/23/2019 6:44 PM EDT 95 mLs iohexol (OMNIPAQUE) 350 mg/mL solution 0-50 mL 0-50 mL, Oral, ONCE PRN, 1 dose, Starting on Fri02/23/19 at 1843, Until Fri02/23/19 at 184, Per Protocol, Warning Vesicant/Irritant Medication , Radiology Contrast, Routine Given 02/23/2019 6:44 PM EDT 50 mLs documented in this encounter Care Teams Mechanical Maintenance Foreman Relationship Specialty Start Date End Date Lisa Mayorga MD [address] [place] [address] PCP - General 05/24/11 documented as of this encounter
--- OUTSIDE RECORDS SUMMARY | 2023-12-15 15:48 | XMS_ITS | Encounter Summary ---
Author Organization Formerly [facility] Address [facility] [place] [address] Care Team Providers Care Parts Runner Name Role Phone Lisa Mayorga MD Primary Care Provider [phone] Encounter Details Date Type Department Care Team (Late st Contact Info) Description 03/14/2014 Orders [place] [address] Vinh Barrett MD [facility] [address] [place] [address] Bilateral hand pain Social History Tobacco Use Types Packs/Day Years [...] as of this encounter Visit Diagnoses Diagnosis Bilateral hand pain Pain in limb documented in this encounter Care Teams Parts Runner Relationship Specialty Start Date End Date Lisa Mayorga MD [address] [place] [address] PCP - General 05/24/11 documented as of this encounter
--- OUTSIDE RECORDS SUMMARY | 2023-12-15 15:48 | XMS_ITS | Encounter Summary ---
Author Organization [facility] Address [facility] [place] [id number] Care Team Providers Care Remote Encoding Center Manager Name Role Phone Lisa Mayorga MD Primary Care Provider [phone] Reason for Visit * Auth/Cert Specialty Diagnoses / Procedures Referred By Sheba childs Referred To Contact Diagnoses Right palmar hand mass Procedures PRO EXCISE SOFT TISSUE LESION HAND SUBCUT EXCISION TUMOR OR VASC MAL, HAND OR FINGER, SUBQ, <1.5 CM (WRVU 3.96) Referral ID Status Reason Start Date Expiration Date Visits Re quested Visits Authorized [id number] 1 1 Encounter Details Date Type Department Care Team (Late st Contact Info) Description 10/07/2017 12:15 PM EDT Anesthesia Event [place] [id number] Elizabeth Roca MD [facility] [place] [address] Naomy Rodriguez MD [facility] [place] [address] Anesthesia Record Procedure Summary Procedure Name Responsible Anesthesiologist Anesthesia Start Time Anesthesia Stop Time EXCISION, TUMOR, SOFT TISSUE OR VASCULAR MALFORMATION OF HAND OR FINGER, SUBFASCIAL (EG. INTRAMUSCULAR); 1.5 CM OR GREATER (WRVU 7.13) (Right) Elizabeth Roca MD 10/07/17 1215 10/07/17 1328 Events Date Time Event Comment 10/07/2017 1121 1215 AN Verify 1215 Start 1218 An Start Data 1230 An Induction 1232 An Intubation 1236 Anesthesia Ready 1247 Procedure Start 1249 An Tourn Inflated To Rt. Arm at 250 mm/hg. 1250 Skin Incision 1309 An Tourn Deflated 1314 Procedure Stop 1324 an stop data 1327 Recovery or ICU Handoff Hilda ent care was transferred to the destination unit staff after review of the patient's medical history, current anesthetic/surgical status and plan, according to the Provider Handoff Checklist. 1328 Stop Meds Name Total Midazolam 2 mg fentaNYL 100 mcg IV Lidocaine 40 mg Propofol 200 mg Ondansetron 4 mg Dexamethasone 8 mg ceFAZolin (ANCEF) 2g in dextrose 5% 100 mL 2 g Propofol INF 181.02 mg lactated Ringers infusion 1,000 mL 600 m L * Agents Name O2 Air N2O Sevoflurane (et) * Blood No blood administrations on file. Lines, Drains, and Airways Type Details Placement Removal Ileostomy 03/23/13; ileostomy 03/23/13 000 0 by Lauren Torres RN Incision 03/23/13; abdomen; 01/28/22 (LDA cleanup utility RA#[id number]); 1715 (LDA cleanup utility RA#[id number]) 03/23/13 0000 by Kelsie Kitchen RN 01/28/22 1715 by Marybeth Kitchen (RETIRED) Peripheral IV Line - Single Lumen 10/07/17; 1116; basilic vein (medial side of arm), left; 20 gauge; km; distraction, intradermal injection; 10/07/17; 1428 10/07/17 1116 by Theodore Briones RN 10/07/17 1428 by Aylin Sykes RN Supraglottic Mask Ventilation: Ea sy (1); LMA Type: iGel; LMA Size: 4; Inserted by: Lowell Melendez CRNA; Removal Date: 10/07/17; Removal Time: 14210/07/17 1234 by Isidoro Melendez CRNA 10/07/17 1428 by Aylin Sykes RN Incision 10/07/17; 1249; hand ; 01/28/22 (LDA cleanup utility RA#[id number]); 1715 (LDA cleanup utility RA#[id number]) 10/07/17 1249 by Anu Justice RN 01/28/22 1715 by Marybeth Kitchen documented in this encounter Social History Tobacco [...] OR Notes * Anesthesia Postprocedure Evaluation - Elizabeth Roca MD - 10/07/2017 2:13 PM EDT [facility] [place] Department of Anesthesiology Post-procedure Note Patient: Mic Argueta Jr. Procedure Summary Date Anesthesia Start Anesthesia Stop Room / Location 10/07/17 1215 1328 [facility] OR / [facility] Procedure Diagnosis Surgeon Responsible Provider EXCISION, TUMOR, SOFT TISSUE OR VASCULAR MALFORMATION OF HAND OR FINGER, SUBFASCIAL (EG. INTRAMUSCULAR); 1.5 CM OR GREATER (WRVU 7.13) (Right ) Skin lesion of hand (Right palmar hand mass) Vinh Barrett MD Seiffert, Ellen A, MD All Anesthesia Providers: Anesthesiologist: Elizabeth Roca MD PARTS COUNTER SALES PERSON: Isidoro Melendez CRNA Most Recent Vitals: 10/07/17 1401 BP: 118/83 Pulse: 75 Resp: 20 Temp: SpO2: 97% Pain 3 (10/07/17 1401) Patient Location: PACU/[facility] Level of Consciousness: Awake and Alert Pain Management: Satisfactory Analgesia PONV: None Cardiovascular Status: At Baseline Respiratory Status: At Baseline, Room Air and Stable Respiratory Status Postoperative Fluid Status: Intravascular EUvolemia Possible Anesthetic Complications: NONE apparent at time of evaluation Final Primary Anesthesia Type: General (The anesthetic type performed was the same as planned.) Comments: Mr. Argueta tolerated the procedure well and without complication; VSS on RA. * Anesthesia Preprocedure Evaluation - Elizabeth Roca MD - 10/07/2017 9:25 AM EDT Pre-Anesthesia Evaluation for: Mic Argueta Jr. a 47 y.o. male. Procedure(s): EXCISION TUMOR OR VASC MAL, HAND OR FINGER, SUBQ, <1.5 CM (WRVU 3.96) Patient Active Problem List Diagnosis ??? Heck lesion of right hand ??? Trigger thumb of both thumbs ??? Atrial fibrillation S/p ablation x2 ??? Asthma ??? Depression ??? Ulcerative (chronic) enterocolitis ??? Tremor Age at onset 38 with left foot tremor, then right then upper extremity. Partially responsive to klonopin and now gabapentin. Negative ceruloplasmin. No past medical history on file. Past Surgical History: Procedure Laterality Date ??? PRO COLONOSCOPY, BIOPSY 12/24/2011 COLONOSCOPY FLEXIBLE, WITH BX performed by ANDREW BRADLEY at [facility] ENDOSCOPY ??? PRO COLONOSCOPY, BIOPSY 01/11/2013 COLONOSCOPY FLEXIBLE, WITH BX performed by Johnathon Esparza MD at [facility] ENDOSCOPY ??? PRO COLONOSCOPY, DIAGNOSTIC 01/11/2013 COLONOSCOPY, DIAGNOSTIC performed by Johnathon Esparza MD at [facility] ENDOSCOPY ??? PRO REMOVAL COLON/ILEOSTOMY 03/23/2013 @COLECTOMY, TOTAL WITH ILEOSTOMY performed by Johnathon Esparza MD at [facility] MAIN OR Social History Substance Use Topics ??? Smoking status: Former Smoker Packs/day: 1.00 Years: 10.00 Types: Cigarettes Quit date: 04/02/2007 ??? Smokeless tobacco: Never Used ??? Alcohol use No History Drug Use No No Known Allergies Medications: MAR and/or home medications have been reviewed. Physical Exam: There were no vitals filed for this visit. There is no height or weight on file to calculate BMI. Airway Assessment: Mallampati: II TM distance: >3 FB Neck ROM: full Cardiovascular Assessment: Pulmonary Assessment: Dental Assessment: - normal exam Misc Assessment: IV access: Peripheral line Other exam findings: Pt has an ostomy bag in place Anesthesia Plan: ASA 2 general, with a(n) intravenous induction Mr. Argueta is a 47 year old male with PMHx of UC, s/p colectomy, remote tobacco abuse, asthma (well controlled), depression, atrial fibrillation s/p ablation, and a right heck lesion who is scheduledfor excision. Pt has a h/o tongue swelling with NSAID medications. Plan for preoperative Tylenol, gabapentin, GA/LMA. Risks were discussed at length, and all questions and concerns were addressed. Consent was obtained, and the appropriate paperwork was placed in thepatient's chart. Region - Other Informed Consent: Anesthetic plan and risks discussed with patient. Plan discussed with PARTS COUNTER SALES PERSON. PAT Staff Note documented in this encounter Plan of Treatment Not on file documented as of this encounter Visit Diagnoses Not on filedocumented in this encounter Administered Medications Inactive Administered Medications - up to 3 most recent administrations Medication Order MAR Action Action Date Dose Rate Site ceFAZolin (ANCEF) 2g in dextrose 5% 100 mL 2 g, Intravenous, EVERY 3 HOURS, 1 dose, First dose on Fri10/07/17 at 1115, Administer over 30 Minutes, Redose after 3 hours., Intra-Operative (Intra-Procedure), Indication for (Active or Suspected): Prophylaxis Given 10/07/2017 12:24 PM EDT 2 g dexamethasone (DECADRON) injection PRN, Starting on Fri10/07/17 at 1242, Until Fri10/07/17 at 1328, Anesthesia Intra-op, Routine Given 10/07/2017 12:42 PM EDT 8 mg fentaNYL 50 mcg/mL multi-dose injection PRN, Starting on Fri10/07/17 at 1216, Until Fri10/07/17 at 1328, Pain, Anesthesia Intra-op, Routine Given 10/07/2017 12:56 PM EDT 25 mcg Given 10/07/2017 12:51 PM EDT 25 mcg Given 10/07/2017 12:29 PM EDT 25 mcg lidocaine (PF) (XYLOCAINE) 100 mg/5 mL (2 %) injection PRN, Starting on Fri10/07/17 at 1222, Until Fri10/07/17 at 1328, Anesthesia Intra-op, Routine Given 10/07/2017 12:22 PM EDT 40 mg midazolam (PF) (VERSED) 1 mg/mL multi-dose injection PRN, Starting on Fri10/07/17 at 1216, Until Fri10/07/17 at 1328, Sleep, Anesthesia Intra-op, Routine Given 10/07/2017 12:16 PM EDT 2 mg ondansetron (ZOFRAN) injection PRN, Starting on 10/07/17 at 1242, Until 10/07/17 at 1328, Nausea, Anesthesia Intra-op, Routine Given 10/07/2017 12:42 PM EDT 4 mg propofol (DIPRIVAN) 10 mg/mL bolus injection (Anesthesia) PRN, Starting on e 10/07/17 at 1230, Until 10/07/17 at 1328, Anesthesia Intra-op Given 10/07/2017 12:30 PM EDT 200 mg propofol (DIPRIVAN) infusion CONTINUOUS PRN, Starting on Fri10/07/17 at 1230, Until Fri10/07/17 at 1328, Anesthesia Intra-op, Routine New Bag 10/07/2017 12:30 PM EDT 50 mcg/kg/min 25.9 mL/hr documented in this encounter Care Teams Remote Encoding Center Manager Relationship Specialty Start Date End Date Lisa Mayorga MD [address] [place] [address] PCP - General 05/24/11 documented as of this encounter
--- OUTSIDE RECORDS SUMMARY | 2023-12-15 15:48 | XMS_ITS | Encounter Summary ---
Author Organization [facility]ly [facility] [place] [address] Care Team Providers Care Roll Setter Name Role Phone Lisa Myaorga MD Primary Care Provider [phone] Reason for Visit * Reason Onset Date Comments Abdominal Pain 06/07/2013 Encounter Details Date Type Department Care Team (Late st Contact Info) Description 06/07/2013 Telephone [place] [phone] Ashli Cantor, RN Abdominal Pain Social History Tobacco Use Types Packs/Day Years [...] encounter Miscellaneous Notes * Telephone Encounter - Ashli Cantor RN - 06/07/2013 3:41 PM EST Mic called the clinic today with complaints of LLQ pain. He describes it as constant and sharp. He denies fever/chills. Nothing exacerbates it or makes it better. He is also concerned about some pink tinged mucous that he expelled from his anus. Spoke with Dr. Esparza and he suggests trying cortifoam nightly to see if it helps with the discomfort. Dr. Esparza thinks it may be related to some residual inflammation. Dr. Esparza is not concerned about the pink tinged mucous as this is not uncommon. This information was relayed to Mic. He will try the cortifoam for about 10 days to see if it helps with his discomfort. The prescription was e-faxed to [facility] in [facility] per the pt request. documented in this encounter Plan of Treatment Not on file documented as of this encounter Visit Diagnoses Not on filedocumented in this encounter Care Teams Roll Setter Relationship Specialty Start Date End Date Lisa Mayorga MD [address] [place] [address] PCP - General 05/24/11 documented as of this encounter
--- OUTSIDE RECORDS SUMMARY | 2023-12-15 15:48 | XMS_ITS | Encounter Summary ---
Author Organization [facility] [place] [address] Care Team Providers Care Animal Anatomist Name Role Phone Lisa Roberts MD Primary Care Provider Encounter Details Date Type Department Care Team (Late st Contact Info) Description 05/15/2015 1:30 PM EST Ext Hos or [facility] [address] [place] [id number] Sherwin Sr Jr., MD [address] [place] [address] Chest pain, unspecified chest pain type Social History Tobacco Use Types Packs/Day [...] Procedure Name Priority Date/Time Associated Diagnosis Comments ECG SCAN 05/17/2015 12:00 AM EST STRESS TEST, EXERCISE (TREADMILL) Routine 05/15/2015 documented in this encounter Results * SCAN DOC: ECG (05/17/2015 12:00 AM EST) Scanning Provider MEDIA MGR SCAN EXT O RDR/RSLT * Stress Test, Exercise (Treadmill) (05/15/2015) Anatomical Region Laterality Modality Other Narrative 05/15/2015 Exercise Stress Test- Final Report ?? Mic Argueta Jr. : 1970 [facility], [address] [facility] [address] Primary Physician: ??LISA ROBERTS MD ??Indication: chest pain Date: 05/15/2015 Summary: Max Exercise: ??9:00, 3:00 ??Stage III ??Jeyson ?? 10 ?? METS Max HR: ? 167> 85 % PMR(147) Max BP: ??201/[address] change: ??none Reason for Termination: dyspnea, slight chest/jaw tightness Impression: no evidence of ischemia at greater than 85% PMR- low probability of obstructive coronary artery disease No afib during the test- if tachycardia symptoms persist consider higher diltiazem dose Details: Medication: at low point of diltiazem Risk Factors: ?? Family History, Cholesterol Resting EKG: NSR 71, normal ?Resting BP: 131/95 Exercise per Jeyson protocol Arrhythmias: none Recovery: ??BP ?? -> ?? 138/91 ?HR ?? -> 97 Arrhythmias: none Electronically signed: Sherwin Sr Jr, MD FAC ??Date: 05/15/2015 Historical Provider CARDIAC SERVICES ORDERABLES documented in this encounter Visit Diagnoses Diagnosis Chest pain, unspecified chest pain type documented in this encounter Care Teams Animal Anatomist Relationship Specialty Start Date End Date Lisa Roberts MD [address] [place] [address] PCP - General 05/24/11 documented as of this encounter
--- OUTSIDE RECORDS SUMMARY | 2023-12-15 15:48 | XMS_ITS | Encounter Summary ---
Author Organization [facility] [place] [address] Care Team Providers Care Hi Lo Driver Name Role Phone Lisa Roberts MD Primary Care Provider [phone] Encounter Details Date Type Department Care Team (Latest Contact Info) Description 03/23/2013 8:52 AM EDT - 03/30/2013 11:04 AM EDT Hospital Encounter [address] [place] [id number] Pillo Avina MD [facility] [place] [address] Atrial fibrillation Discharge Disposition: Home Social History Tobacco Use [...] Sign Reading Time Taken Comments Blood Pressure 108/76 03/30/2013 7:55 AM EDT Pulse 84 03/30/2013 7:55 AM EDT Temperature 36.4 ??C (97.5 ??F) 03/30/2013 7:55 AM ED T Respiratory Rate 16 03/30/2013 7:55 AM EDT Oxygen Saturation 98% 03/30/2013 7:55 AM EDT Inhaled Oxygen Concentration - - Weight 83.5 kg (184 lb 1.4 oz) 03/29/2013 5:17 A M EDT Height 177.8 cm (5' 10) 03/24/2013 3:45 AM EDT Body Mass Index 26.41 03/24/2013 3:45 AM EDT documented in this encounter Discharge Instructions * Patient Instructions* Arianna Beatty Saida Richards - 03/29/2013 1:51 PM EDT Colon and Rectal Surgery Patient Discharge Instructions Activity level: Avoid heavy lifting for the next 4 weeks or until cleared to do so at follow-up appointment. Otherwise activity as tolerated by comfort level. Diet: You may resume your regular diet as tolerated. If your doctor has instructed you to have a low residue or low fiber diet then avoid fresh fruits/fresh vegetables (cooked are OK) for 4 weeks or as instructed. You should try and drink 2 liters of fluids daily. Driving: No driving while still taking opioid pain medications (wait at least 6- 8 hours since last dose). No driving if you are still sore from surgery as it may limit your ability to react quickly if necessary. Shower/Bath: You may shower and get incision(s) wet. Pat dry immediately following. Do not scrub them vigorously for the next 2-3 weeks. Do not soak incision(s) for the next 2 weeks (i.e. soaking in bath or swimming) as this may promote a wound infection. Wound Care: Wash incision with soap and water, pat dry, and leave open to air. Allow steri-strips (pieces of tape) to fall off on their own if you have them. You may cover with gauze as needed to prevent incision rubbing on clothes or for any seepage. If you have skin drake you will need to have them removed in 12-14 days. This can be done by yourPCP or you can come back to the General surgery clinic to have these removed by the General Surgerynurses on 4[facility] (see below). Steroid Taper Instructions: -Take 15 mg of prednisone (3 tablets) daily for 7 days, then -Take 10 mg prednisone (2 tablets) daily for 7 days, then -Take 5 mg prednisone (1 tablet) for 7 days, then stop. Follow up Appointments: 1. You have a follow-up appointment with the General Surgery Nurses at [facility] for staple removal and wound check as above. 2. You have a follow up appointment with Dr. Shields and the Ostomy Nurses at the [facility] on as above, respectively. You will receive a phone call and/or letter in the mail with information about these appointments. Please call [phone] (clinic number for appointments only) to confirm date and time of your appointments or if you do not receive information about your appointment in a timely manner. Call your doctor if: You develop any of the following sings or symptoms of infection: o Redness or swelling of your incision (some mild redness around the incision and the staple sites is normal) o Drainage or bleeding from your incision o Fever over 100.5 F o Increased pain or discomfort at the incision site Persistent nausea and/or vomiting or the inability to keep foods or fluids down in a 24 hour period. Signs or symptoms of dehydration: o Dry mouth o Dark, concentrated urine, or lack of urine o Lightheadedness Any other concerning sign or symptom such as shortness or breath, chest pain, pain with urination or other signs of urinary tract infection (UTI), or new leg pain/swelling. Also, please call if you develop increasing abdominal pain, increasing abdominal pain, abdominal firmness, if you stop passinggas or stool for an extended period of time, or bloody bowel movements/vomitting. CALL THE GENERAL SURGERY CLINIC DURING WORKING HOURS AT , OR CALL AFTER CLINIC HOURS, WEEKENDS AND HOLIDAYS: ASK FOR THE SURGERY RESIDENT MASTER SHEET CLERK IF ANY OF THE ABOVE OCCUR. Ileostomy Pouching: Disposable 1-piece pouch Name: Danya Argueta Type of Ostomy: Ileostomy Use this procedure as a guide when changing your appliance. Read all instructions, assemble all equipment, and empty contents from pouch before beginning actual change. If you have questions, do not hesitate to call Ora Hernández RN CWOCN or Radha Salvador RN CWOCN at [phone]. Equipment: Company/Order Numbers Wet and dry soft cloth (paper towels) Plastic bag Pen, Scissors, stoma pattern One-piece Pouch Convatec cut-to-fit # [id number] Or Coloplast cut to fit #39949 Protective powder Convate #: [id number] Stomahesive Paste [facility] #[id number] Non-allergic tape (4 strips) Cloudyn paper tape if necessary Liquid Deodorant Hero M9 #8317 Other Supplies (if any) Procedure: 1. Using pattern, trace stoma size on back of wafer and cut out tracing (Be careful not to cut pouch!). 2. Place wafer in a warm place to make it more pliable. 3. Remove old pouch and wafer from skin and discard in plastic bag, be sure to remove clamp from the old pouch. 4. Wash skin and stoma with warm water and pat skin dry. 5. Examine skin and stoma for any irritation. If skin irritation present, apply a dusting of Stomahesive protective powder. [place] off excess powder, or wafer will not adhere. 6. Remove paper backing from wafer. 7. Apply a bead of Stomahesive paste around cut opening. 8. Apply pouch to skin being sure to center over stoma--angle pouch as desired. Press down firmly, first in center closest to stoma and then outer edges. You may remove paper backing from adhesive outer edges at this point. 9. Attach Clamp. 10. Picture frame (apply 1-piece of tape to each side of the wafer) with waterproof tape when showering, bathing or swimming (optional). Changing Schedule: Twice Weekly Always bring supplies needed for a pouch change when you come in for your clinic visits, or into the hospital. Pharmacy or Medical Supply: [facility] ([place] [phone]) or [facility] or [facility], [place], [employer], etc... DIVISION OF COLON AND RECTAL SURGERY High Ileostomy Output Patient Instructions: This content was designed for use in [facility] Division of Colon & Rectal Surgery Patients Only Patients with new ileostomies are especially prone to dehydration - the most common preventable cause of readmission to the hospital after you are discharged. Please take the following instructions seriously in order to avoid being re-admitted for dehydration. Age over 50 and diuretic use are knownrisk factors. 1. If you are having >1.5 liters (about 6 1/2 cups or 50 ounces) per 24 hours of ileostomy output, then you are at increased risk of becoming dehydrated. 2. Dry mouth, dark urine or less than normal urine output, dizziness, or flu- like symptoms are somesigns of dehydration. 3. Please re-hydrate yourself not with plain water (which can make dehydration worse by diluting the salt in your body) but with coconut water, Pedialyte, or heum-ciw-ftryehm Oral Rehydration Solutions (ORS) available from the pharmacy. 4. If you are having thin watery/loose stool then it needs to be thickened with diet ?? eat stool thickening foods such as the BRAT diet (soft Bananas, white Rice, Applesauce, [place]) as well as cheese, creamy peanut butter, pasta, mashed potatoes. ?? take Metamucil one TABLESPOON in only 4 oz. of water two to three times per day to thicken your stool. ?? Drink most of your liquids between meals (not with meals) to maximize absorption of the food youeat. ?? Do not restrict salt in your diet, as sodium losses in ostomy output can be great. ?? Potato chips and Gatorade can help to thicken the stool and replace salt losses quickly. 5. If your stool becomes thicker but still >1.5L per 24 hours then start [id number]-[id number] Imodium to slow your stool down ?? Start with half a tablet 30 minutes before meals and at bedtime. ?? If this helps but not enough then increase to 1 tablet 30 minutes before meals and at bedtime. ?? If this helps but not enough then increase to 2 tablets 30 minutes before meals and at bedtime. 6. If you are still having high output then call your team (doctor or stoma nurse) at the hospital (as above). Remember do not take extended release pills or large pills which may cause a blockage. You may crush non-extended release pills and take them with applesauce, yogurt, or pudding. References: Steve Kaminski et al. Readmission for Dehydration or Renal Failure After Ileostomy Creation - risk factor = age > 50; another study showed risk factor = diuretic use. Gaby Quarles et al. Ileostomy Pathway Virtually Eliminates Readmissions for Dehydration in New Ostomates. Ostomy Resources: Ostomy.org: [employer] Ost[employer] Association - includes a video Living with an Ostomy [employer] Association of [place]: www.uoaa.org [place] [employer]al [employer]: www.fascrs.org/patients/treatments_and_screening/ostomy/ [place] [employer]: www.facs.patienteducation/skills/ostomy.html www.facs.org/patienteducation/skills/dvd.html - includes 10 short professionally produced videos includin. Helping your with home care 2. Your Ostomy 3. Your Operation 4. Pouching systems 5. Emptying a Pouch 6. Changing a Pouch 7. Problem Solving 8. Emergencies 9. Knowledge check 10. Ostomy skills (all modules, 27 minutes) These videos are also on Youtube: search for [place] [employer] Ostomy Education Skills Below is a list of garment websites we other ostomates have found helpful. We do not endorse or have any financial relationship with any of them ?? Milk [employer] - custom neoprene swimming belts. ?? OstomySeb3 bio - stylish ostomy underwear and ostomy undergarments ?? Plinga - Dont' feel Different . . . FEEL CONFIDENT. Ileostomy Instructions: 1. Skin: The enzymes present in the ileostomy stool are very irritating to the skin. The longer theskin is exposed to these enzymes, the more irritated the skin will become. The pouch should be changed as soon as possible when a leak develops. The signs of leakage include burning or itching of theskin beneath the appliance or obvious visible leakage. Many of problems with skin care evolve from an improper pattern. You must always be sure the size opening cut in your pouch barrier is not more than 1/8 larger than your stoma. If skin becomes irritated, apply a light dusting of protective powder and brush excess off skin; seal this in with a barrier wipe, otherwise pouch will not adhere. Ifirritated skin does not clear up in one week, call your ostomy nurse. 2. Odor: May indicate infrequent or improper cleansing of pouch, a soiled clamp, or a leaky pouch. Some odoris expected when emptying and rinsing your pouch. This can be neutralized by dropping a liquid deodorizer into your pouch--such as [place] M9 drops. Odor offenders in the food category are: beans, fish, cheese and eggs. Certain medications such as multivitamins or antibiotics can also cause odor. 3. Gas: Gas is a normal product of the intestine. However, excessive gas can be caused by chewing gum, drinking with a straw or drinking carbonated beverages. Other gas-causing foods: broccoli, cabbage, beans, onions, brussel sprouts, beer, cucumbers. 4. Diet: Chew foods well and drink fluids when eating. Try new foods one at a time to be sure that you can tolerate them. Fiber contained in food may cause a blockage in the stoma if chewing has not broken down the fiber. Some of these offenders are popcorn, nuts, micronesian vegetables, coconut, whole kernel corn, seeds, orange pulp, and the skins of fruit. If in doubt of a certain food, eat it in moderationand follow with extra fluid by mouth. 5. Food Blockage: If a blockage occurs, you may experience cramping in the abdomen, little or no stool output, nauseaor vomiting, or a large amount of liquid stool. If you think that a blockage has occurred, drink more fluids and withhold solid foods. A warm bath/shower may relieve the blockage as well. If symptonspersist for more than few hours, Notify your doctor!!! He may ask you to come in to his clinic or the emergency room. 6. Dehydration: Dehydration can easily occur with the flu or normal perspiring on a hot day. Signs of dehydration include dry mouth, a feeling of weakness, muscle cramps in the legs, or decreased urine output. It's important to replace fluid if you have increased perspiration because of activity, heat or fever, orif you have increased diarrhea. Gatorade is a good fluid replacement since it contains sodium and potassium. Other suggested fluids to take include broths, Coke or 7- Up, and tea. If dehydration occurs because of diarrhea, eat bland foods that will also thicken the consistency of stool. These are applesauce, rice, cereals, bananas, peanut butter and breads. If you become dehydrated Call your Doctor!!!, he may want to order antidiarrheal medications. 7. Medications: It is important to remind all you doctors that you have an ileostomy. Some medications are coated with a thick shell and will not dissolve in the upper gastrointestinal tract. These may pass in entirety into the pouch. The same applies to time release medications. Neither of these will do you anygood, they will just increase your pharmacy bill! Laxatives are not needed. Infact, they may cause harm by inducing diarrhea and dehydration. Maalox is a popular antacid which can cause diarrhea if it is taken with any frequency or in large amounts. The antacid Amphogel does not have a laxative effect. 8. Miscellaneous: You should measure your stoma weekly for the first month, then every other week for the second month. (This is when the greatest shrinkage of your stoma occurs.) Measure monthly thereafter. The skin barrier should fit exactly around the stoma or not greater than 1/8 larger. Always carry an extra clamp and skin barrier/pouch with you. Pt with Ileostomy/Colostomy When to call your screw down/ MD Change in Color: The stoma should always be pink or red in color. Should the color change to white,blue or black, medical notification is required. Bleeding: It is common and normal for the stoma to bleed minimally during gentle washing. Blood found in the pouch requires medical notification. Obstruction (ileostomies only): This situation, moist common with ileostomies, may be due to undigested or improperly chewed foods. Signs and symptoms include, no stool eliminated into the pouch for 6-12hrs, or excess amounts of watery diarrhea, abdominal pain or nausea or vomiting. If swelling of the stoma occurs, a large disposable pouch should be applied. Notify your technical lead or MD. Prolapse: The term implies that the stoma now extends further from the skin surface than it did at discharge from the hospital. An increase of one inch or more requires medical notification. Pain mayor may not accompany a prolapse. Retraction: This term implies that the bowel has slightly fallen back into the abdominal cavity. Itmay become flush with or recessed below the skin. A good seal with the pouch is difficult. Herniation: This term implies that the muscular area in which the stoma is sewn has lost its tone and the entire area, including skin and surrounding stoma now protrudes beyond the normal skin surface. Irritated Skin: Irritated skin can quickly worsen to a difficult to manage situation. Treat irritated skin as you have been taught. If it has not cleared up after one week call your ostomy nurse. Leaky Pouch: If you are having to change the pouch every other day or more frequently due to leakage it is reasonable for you to give your Ostomy Nurse a call. documented in this encounter Medications at Time of Discharge Medication Sig Dispensed Refills Start Date End Date albuterol (PROVENTIL HFA;VENTOLIN HFA) 90 mcg/actuation inhaler Inhale 2 puffs into the lungs 4 times daily as needed. Use with spacer acetaminophen (TYLENOL) 500 mg tablet Take 2 tablets by mouth every 6 hours. 30 tablet 03/30/2013 04/07/2013 HYDROmorphone (DILAUDID) 2 mg tablet Take 1 tablet by mouth every 4 hours as needed for Pain (for mild pain). 20 tablet 0 03/30/2013 04/07/2013 ibuprofen (ADVIL;MOTRIN) 200 mg tablet Take 3 tablets by mouth every 6 hours as needed for Pain. 30 tablet 03/30/2013 04/07/2013 lisinopril (PRINIVIL;ZESTRIL) 10 mg tablet Take 1 tablet by mouth daily. 30 tablet 3 03/30/2013 09/18/2017 predniSONE (DELTASONE) 5 mg tablet Take 15mg (3tabs) daily x7 days, then 10mg (2tabs) daily x7 days, then 5mg (1tab) daily x7days, then stop. 42 tablet 0 03/30/2013 05/03/2013 psyllium 6 gram packet Take 1 packet by mouth 2 times daily. 30 each 6 03/30/2013 09/18/2017 PARoxetine (PAXIL) 40 mg tablet Take 40 mg by mouth every morning. 09/18/2017 fluticasone-salmeterol (ADVAIR) 250-50 mcg/dose diskus inhaler Inhale 1 puff into the lungs 2 times daily. 02/22/2019 montelukast (SINGULAIR) 10 mg tablet Take 10 mg by mouth daily. 09/18/2017 documented as of this encounter Progress Notes * Ora Hernández - 03/30/2013 11:00 AM EDT Inpatient post op note Diagnosis: DAI Surgery/Date: Procedure(s) (LRB): @COLECTOMY, TOTAL WITH ILEOSTOMY (N/A) Appliance: Activelife one piece cut to fit Changed: [x} Yes Stoma:red, viable and protrudes nicely above skin level in his RLQ, approximately 1 3/8 diameter. Peristomal Skin:intact, without erythema Teaching: RN called to say that pt was to be d/c'd home today and he has not agreed to VNA. I met with he and his this a.m for Ileostomy teaching. I had pt change his pouch, I assisted to cut the pouch out and he did the rest. He has been emptying his pouch. We reviewed paperwork, particularlythe dehydration papers, stressing the importance of adequate hydration, measuring his Ileostomy effluent for the first several days after d/c. He knows the signs of dehydration and the parameters we have set (<1500/d from his Ileostomy). His drake are intact and he will RTC next week to have the drake removed and to see CWOCN in clinic. I have packed paperwork and plenty of supplies for d/c. I will order a box of supplies for him from [facility]. We will discuss pouching options at clinic visits. Family Present: [x} Yes Family Member Present: Psychosocial Acceptance:coping well at this time. Does not seem upset about the Ileostomy and seemsquite comfortable with care thus far. * Heike Ruth LD - 03/30/2013 10:56 AM EDT Nutrition Services Education Note Diet Rx: Low Fiber Patient Active Problem List Diagnosis Code ??? Tremor 781.0 ??? Ulcerative (chronic) enterocolitis 556.0 ??? Asthma 493.90 ??? Depression 311 ??? Atrial fibrillation 427.31 Patient seen for nutrition education for low fiber, ileostomy diet education. Written information provided: Pt was given my contact information if questions arise. Pt stated good understanding. * Pillo Avina MD - 03/30/2013 10:30 AM EDT 03/30/13 POD #7 Afebrile BP 127/72 P 56 Feels well. Tolerated low fiber diet without difficulty. No nausea. Output from stoma thick in consistency last evening, but more watery this AM. Voiding without difficulty. Pt has changed ostomy appliance. P/E Chest: Clear Cor: RR w/out m Abd: Soft, nondistended. Incision healing well. Stoma appears healthy. Minimal incisional tenderness. Ext: No calf tenderness UO 1350 cc/24 hrs; -700 cc fluid bal/24 hrs (-2.8 L fluid bal since admission) Ileostomy 1590 cc/24 hrs CBC pending Path pending IMP: Doing well. Anticipate ileostomy output will thicken in consistency and decrease in volume as intake of solid food increases. Ready for discharge if WBC stable on today's assessment. Instructions reviewed. Start Metamucil 1 Tsp in juice or water QAM & at 3 PM Pt to record 24 hr totals for urine output and will call with results on 04/02 Discharge on Prednisone 15 mg/day and taper by 5 mg per wk. F/U in clinic on 04/05 for staple removal and visit with ETRN F/U with me 4 wks. * Janeth Warren RN - 03/30/2013 9:51 AM EDT Patient Name: Danya Argueta Jr. Patient Age: 43 y.o. Birthdate: 1970 Admit date: 03/23/2013 Attending Physician: Pillo Avina MD Patient cleared for discharge home; has needed ostomy supplies; has presently declined VNA services; discharge instructions/medications reviewed and patient verbalizing understanding; no further questions; discharge when ride arrives. * Arianna Beatty - 03/30/2013 5:45 AM EDT COLORECTAL SURGERY INPATIENT PROGRESS NOTE ID: Danya Argueta Jr. ([id number]) is a 43 y.o. male admitted on 03/23/2013, now 7 Days Post-Op total abdominal colectomy with end ileostomy as stage 1 eventual IPAA 24 Hour Events/Subjective: - tolerating PO - rrc dc'ed yesterday Objective: Last value Range last 24 hrs Temperature Temp: 36.7 ??C (98.1 ??F) Temp: [36.7 ??C (98.1 ??F)-37.5 ??C (99.5 ??F)] Heart Rate Heart Rate: 56 Heart Rate: [56-111] Blood Pressure BP: 127/72 mmHg BP: (112-131)/(71-76) Respiratory Rate Resp: 16 Resp: [16-18] SpO2 SpO2: 96 % SpO2: [95 %-97 %] I/O last 1 completed shift: In: 1551 [P.O.:760; I.V.:734; IV Piggyback:57] Out: 1250 [Urine:850; Stool:400] Physical Exam: General: NAD Neuro: NFD HEENT: NCAT, EOMI, anicteric sclerae CVS: RRR, no m/r/g appreciated Pulm: CTAB anteriorly, no incr WOB or w/r/r Abd: Soft, NT, ND, midline incision stapled, no evidence of hematoma. Minimal erythema surrounding edge of incision, unchanged. Stoma pink, appears healthy. Thicker brown output and gas in apparatus Ext: WWP, no edema Recent Labs Basename 03/29/13 0922 03/27/13 1105 WBC 11.8* 13.7* HGB 13.4* 14.2 HCT 39.4* 41.3 PLATELET 321 314 PT -- -- INR -- -- PTT -- -- Recent Labs Basename 03/29/13 0644 03/27/13 1105 NA 133* 135 K 3.5 3.7 CL 99 99 CO2 23 22 BUN 18 29* CREATININE 0.91 0.99 GLUCOSE 106 104 CALCIUM 8.9 9.3 MAGNESIUM -- -- PHOS -- -- New Imaging: ASSESSMENT / PLAN: Danya Argueta Jr. is a 43 y.o. male with issues as stated above, now 7 Days Post-Op total partial colectomy with ileostomy. Currently clinically stable, afebrile, tolerating PO. Pain well controlled and minimal nausea. Neuro: Pain controlled with tylrnol and minimal prns -zofran prn CV: Hx a-fib s/p ablations - BP, HR much better controlled. Likely dehydration/pain influenced severity of his tachycardia/BP control -holding further metop -continue lisinopril 10mg qd for now Pulm: Stable on RA; IS and frequent OOB, ambulation encouraged -home albuterol, advair, spiriva -duonebs prn GI: tolerating low res diet, high ostomy output -continue PO intake, avoiding IVF if possible while taking good PO -will consider stool thickening agents today FEN: Monitor and replete lytes prn, monitor UOP -MIVF off : Pope out, voiding ID: Afebrile; monitor incision, monitor for signs/sx of systemic infection Heme: No active issues Endo: No history of DM/need for insulin. -pred 20qd, will taper Ppx: subq hep Dispo: Floor status; encourage OOB to chair and ambulation. Awaiting return of normal bowel function ARIANNA BEATTY MD 03/30/2013 5:45 AM * Radha Salvador RN - 03/29/2013 5:23 PM EDT I stopped to see pt and assess his ileostomy. Pt was feeling much better today and is having good output with the catheter in his stoma. His appliance was changed over the weekend. He has a 2 1/4 Durahesive wafer and transparent pouch. The tube is sutured to the flange. Will wait to change the pouch until we know the plan to remove the catheter. It is intact. I left his discharge paperwork for him to review and talked with him about dehydration and measuring his output. We will follow. * Arianna Beatty - 03/29/2013 9:33 AM EDT COLORECTAL SURGERY INPATIENT PROGRESS NOTE ID: Danya Hinojosa Ellie Velazquez. ([id number]) is a 43 y.o. male admitted on 03/23/2013, now 6 Days Post-Op total abdominal colectomy with end ileostomy as stage 1 eventual IPAA 24 Hour Events/Subjective: - no nausea, tolerated sips - good ostomy output w RRC Objective: Last value Range last 24 hrs Temperature Temp: 36.8 ??C (98.2 ??F) Temp: [36.6 ??C (97.9 ??F)-36.9 ??C (98.4 ??F)] Heart Rate Heart Rate: 84 Heart Rate: [65-87] Blood Pressure BP: 123/74 mmHg BP: (98-123)/(59-74) Respiratory Rate Resp: 18 Resp: [16-18] SpO2 SpO2: (not being monitored) SpO2: [94 %-98 %] I/O last 1 completed shift: In: 1147 [P.O.:120; I.V.:1027] Out: 1625 [Urine:675; Stool:950] Physical Exam: General: NAD Neuro: NFD HEENT: NCAT, EOMI, anicteric sclerae CVS: RRR, no m/r/g appreciated Pulm: CTAB anteriorly, no incr WOB or w/r/r Abd: Soft, NT, ND, midline incision stapled, no evidence of hematoma. Minimal erythema surrounding edge of incision, unchanged. Stoma pink, well perfused, RRC in situ, thin bilious and gas in bag Ext: WWP, no edema Recent Labs Basename 03/27/13 1105 WBC 13.7* HGB 14.2 HCT 41.3 PLATELET 314 PT -- INR -- PTT -- Recent Labs Basename 03/29/13 0644 03/27/13 1105 03/26/13 1052 NA 133* 135 134* K 3.5 3.7 4.2 CL 99 99 98 CO2 23 22 22 BUN 18 29* 24* CREATININE 0.91 0.99 0.99 GLUCOSE 106 104 145 CALCIUM 8.9 9.3 9.8 MAGNESIUM -- -- -- PHOS -- -- -- New Imaging: ASSESSMENT / PLAN: Danya Argueta Jr. is a 43 y.o. male with issues as stated above, now 6 Days Post-Op total partial colectomy with ileostomy. Currently clinically stable, afebrile. Pain well controlled and minimal nausea. 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 -pred 20qd to begin taper Ppx: Nexium, subq hep Dispo: Floor status; encourage OOB to chair and ambulation. Awaiting return of normal bowel function ARIANNA BEATTY MD 03/29/2013 9:33 AM * Merlyn Cisneros MD - 03/28/2013 8:43 AM EDT [facility] INPATIENT PROGRESS NOTE ID: Danya Argueta Jr. ([id number]) is a 43 y.o. 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 24 Hour Events/Subjective: - epidural and Pope removed; able to void on own - no further orthostasis - RRC placed to ostomy, nausea resolved, tolerating sips Objective: Last value Range last 24 hrs Temperature Temp: 37 ??C (98.6 ??F) Temp: [36.3 ??C (97.3 ??F)-37 ??C (98.6 ??F)] Heart Rate Heart Rate: 84 Heart Rate: [66-86] Blood Pressure BP: 115/76 mmHg BP: (111-121)/(71-77) Respiratory Rate Resp: 18 Resp: [17-18] SpO2 SpO2: 95 % SpO2: [95 %-98 %] I/O last 1 completed shift: In: 1239 [P.O.:180; I.V.:1059] Out: 920 [Urine:735; Stool:185] Physical Exam: General: NAD, Neuro: NFD HEENT: NCAT, EOMI, anicteric sclerae CVS: RRR, no m/r/g appreciated Pulm: CTAB anteriorly, no incr WOB or w/r/r Abd: Soft, NT, ND, midline incision stapled, no evidence of hematoma. Minimal erythema surrounding edge of incision. Stoma pink, well perfused, RRC in situ, thin bilious and gas in bag Ext: WWP, no edema Recent Labs Basename 03/27/13 1105 WBC 13.7* HGB 14.2 HCT 41.3 PLATELET 314 PT -- INR -- PTT -- Recent Labs Basename 03/27/13 1105 03/26/13 1052 NA 135 134* K 3.7 4.2 CL 99 98 CO2 22 22 BUN 29* 24* CREATININE 0.99 0.99 GLUCOSE 104 145 CALCIUM 9.3 9.8 MAGNESIUM -- -- PHOS -- -- New Imaging: ASSESSMENT / PLAN: Danya Argueta Jr. is a 43 y.o. male with issues as stated above, now 5 Days Post-Op total partial colectomy with ileostomy. Currently clinically stable, afebrile. Pain well controlled and minimal nausea. 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 -methylprednisolone 20mg qd while npo, to Pred 15 qd when PO Ppx: Nexium, subq hep Dispo: Floor status; PT/OT today to encourage OOB to chair and ambulation. MERLYN CISNEROS MD 03/28/2013 8:43 AM * Pillo Avina MD - 03/27/2013 9:30 PM EDT 03/27/13 POD #4 T 98.1 BP 104/73 P 120 C/O nausea and dizziness last evening. Ileostomy passing watery output plus flatus. No cramps. No chest pain or SOB. Epidural catheter remove d this AM. Chest: Clear Cor: RR w/out M Abd: Soft, nondistended, Erythema along margins of midline incision. No drainage from incision. Stoma edematous, but healthy. Ext: No calf tenderness UO 925 cc/24 hrs; -213 cc fluid bal/24 hrs (-2.2L fluid bal since admission) Ileos 1475 cc/24 hrs 24 Fr catheter inserted in ileostomy with decompression of small intestine proximal to stoma. Catheter secured to appliance and left in place. IMP: Ileostomy dysfunction due to edema of stoma. Suspect giddiness and tachycardia in part relatedto epidural catheter, although there may also be an element of intravasc volume depletion. Pt given additional fluid bolus Will check CBC & BMP If stable today will D/C pope catheter Await return of effective peristalsis. * Ted Ruvalcaba MD - 03/27/2013 9:23 AM EDT Acute Pain Service - Epidural Daily Management Physician: Peri Time of Service: 9:23 AM VITAL SIGNS: BP 104/73 Pulse 120 Temp 36.7 ??C (98.1 ??F) (Oral) Resp 17 Ht 177.8 cm (5' 10) Wt 84.6 kg (186 lb 8.2 oz) BMI 26.76 kg/m2 SpO2 98% Labs: No components found with this basename: CBC Epidural day: 5 days s/p POD: 4 days s/p Operative Procedures: @COLECTOMY, TOTAL WITH ILEOSTOMY Continuous Infusions: Bupivacaine 1/8 % (1.25 mg/ml) infusing at 14 mls/hour Pain now is well controlled Patient awake and alert. Deep breathing and coughing well. Moves legs without difficulty. Denies pruritis. Epidural insertion site clean and without signs of infection. Plan: d/c Epidural removed. Tip intact. Please call with any questions or concerns. TED RUVALCABA MD 03/27/2013 Pager # [phone] * Arianna Beatty - 03/27/2013 7:38 AM EDT [facility] INPATIENT PROGRESS NOTE ID: Danya Argueta Jr. ([id number]) is a 43 y.o. 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 24 Hour Events/Subjective: - some orthostasis yesterday, bolus 1L - repeat NGT atempted, poorly tolerated, dc'ed Objective: Last value Range last 24 hrs Temperature Temp: 36.8 ??C (98.2 ??F) Temp: [36.7 ??C (98.1 ??F)-37.6 ??C (99.7 ??F)] Heart Rate Heart Rate: 90 Heart Rate: [90-132] Blood Pressure BP: 128/86 mmHg BP: (101-128)/(72-89) Respiratory Rate Resp: 16 Resp: [16-18] SpO2 SpO2: 95 % SpO2: [92 %-95 %] I/O last 1 completed shift: In: 1523.5 [I.V.:1523.5] Out: 1125 [Urine:525; Emesis/NG output:150; Stool:450] Physical Exam: General: NAD, appears uncomfortable, A&Ox3/3 Neuro: NFD HEENT: NCAT, EOMI, anicteric sclerae CVS: RRR, no m/r/g appreciated Pulm: CTAB anteriorly, no incr WOB or w/r/r Abd: Soft, NT, ND, midline incision stapled, no evidence of hematoma. Minimal erythema surrounding edge of incision. Stoma pink, well perfused, Brown watery output in apparatus Skin: Warm, dry, no new rash Ext: WWP, no edema Recent Labs Basename 03/25/13 0509 WBC 11.6* HGB 11.0* HCT 33.1* PLATELET 216 PT -- INR -- PTT -- Recent Labs Basename 03/26/13 1052 03/25/13 0509 NA 134* 136 K 4.2 4.0 CL 98 98 CO2 22 27 BUN 24* 13 CREATININE 0.99 0.88 GLUCOSE 145 110 CALCIUM 9.8 8.3* MAGNESIUM -- -- PHOS -- -- New Imaging: ASSESSMENT / PLAN: Danya Argueta is a 43 y.o. male with issues as stated above, now 4 Days Post-Op total partial colectomy with ileostomy. Currently clinically stable, afebrile. Pain well controlled and minimal nausea. Neuro: Pain controlled on epidural and dilaudid PM TECHNICIAN -zofran prn -dc epidural today CV: Hx a-fib s/p ablations - metop 5mg iv q6h -lisinopril 10mg qd Pulm: Stable on RA; IS and frequent OOB, ambulation encouraged -home albuterol, advair, spiriva -duonebs prn GI: NPO, minimal ostomy output. Stoma pink with brown watery drainage. Plan to await return of bowel function and continue fluid replacement -ngt if vomits FEN: Monitor and replete lytes prn, monitor UOP -NPO while awaiting return of bowel function -dc pope once epidural out : Pope in, urine clear. ID: Afebrile, no leukocytosis. No active issues Heme: No active issues Endo: No history of DM/need for insulin. -methylprednisolone 20mg qd while npo Ppx: Nexium, subq hep Dispo: Floor status; PT/OT today to encourage OOB to chair and ambulation. ARIANNA BEATTY MD 03/27/2013 7:38 AM * Niya Metz RN - 03/27/2013 6:28 AM EDT 2229- Pt. Asked to have NG placed after feeling very nauseated. placed NG, 50cc clear light green fluid came out. Pt. Then asked to have it taken back out, he was not able to tolerate it. Before NG taken out, pt. Vomited 150 cc. Will continue to monitor. * Niya Metz RN - 03/27/2013 5:32 AM EDT TELE S: Pt. Denies SOB, CP, N/V. O: VSS, see tele strip in chart A: Pt. Currently tolerating rate and rhythm P: will continue to monitor per tele order * Hunter Emmanuel - 03/26/2013 10:20 PM EDT Surgery Cross Covering Tie Layer Note Called to see patient because he was requesting an NGT. Patient has been nauseated throughout the day however after last nights episode with placing an NGThe had been adamantly refusing having one replaced. However his nausea had progressed to the point where he wanted to try again. I discussed with the patient the reason for the NGT and the rationale behind leaving it in. Also discussed that while the duration of NGT therapy was unclear, it would certainly need to be longer than 15-30 minutes - the time frame which he was willing to tolerate. He then became nauseated and saidlets just give it another try, can you knock me out? Discussed that while we could not fully sedate him we could give him some anxiolytics to assist with placement. Ordered 0.5 mg IV Ativan. (Patient did not feel he could take PO, additionally absorption was likely to be poor given his nausea and gastric secretions). NGT was then placed which was tolerated better than prior, it quickly drained about 50 mL of greenish fluid and then Danya became nauseated and vomited 150 mL of the same color fluid. After this he was continually gagging at which point he demanded that the NGT be removed. The tube was removed andhe stated that he felt much better. I explained to him that intermittent NGT therapy was unlikely to be very helpful to his overall picture, although it resolves his symptoms for a short time. He expressed understanding of this. I then discussed with the nursing staff the need to be diligent about monitoring his respiratory status as he has a Dilaudid PM TECHNICIAN and had just received IV Ativan. He was connected to the oxygen monitor and allowed to go to sleep. Hunter Emmanuel MD [phone] * Nan Parnell RN - 03/26/2013 4:16 PM EDT Acute Pain Service - Epidural Daily Management Physician: Dr. Andryi Metz Time of Service: 1035 AM VITAL SIGNS: BP 118/73 Pulse 108 Temp 36.7 ??C (98.1 ??F) (Oral) Resp 18 Ht 177.8 cm (5' 10) Wt 90.6 kg (199 lb 11.8 oz) BMI 28.66 kg/m2 SpO2 93% Epidural day: 4 days s/p placement POD: 3 days s/p Operative Procedures: @COLECTOMY, TOTAL WITH ILEOSTOMY Pertinent Medications: Continuous Infusions Bupivacaine 1/8 % (1.25 mg/ml) infusing at 14 mls/hour Pertinent History: PM TECHNICIAN Hydromorphone 0.2/10/5-used 2 mg in the last 24 hours Heparin 5000 U Q 12 hr Assessment: Numerical Rating Scale (NRS) 4 /10 Pain now is well controlled ROS: GI/Bowels NPO, some ostomy output Nausea episode of nausea last pm with NGT placed for 200 mL drainage and then removed Pruritis No Drowsiness No Patient is awake and alert. Deep breathing and demonstrates good use of IS. Knows to use 10 times hourly. Moves legs without difficulty. Epidural insertion site clean and without signs of infection. Plan: Continue current regimen. Plan discussed with patient/RN/team. Please call with any questions or concerns. In the presence of Dr. Metz, I am taking down these notes. NAN PARNELL RN 03/26/2013 Pager # [phone] * Arianna Beatty - 03/26/2013 10:19 AM EDT [facility] INPATIENT PROGRESS NOTE ID: Danya Hinojosa Ellie Rodriguez ([id number]) is a 43 y.o. 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 24 Hour Events/Subjective: - hr, bp better - increased nasuea, burping - had ngt w 200cc bilious output but poorly tolerated and dc'ed Objective: Last value Range last 24 hrs Temperature Temp: 36.7 ??C (98.1 ??F) Temp: [36.5 ??C (97.7 ??F)-37.5 ??C (99.5 ??F)] Heart Rate Heart Rate: 99 Heart Rate: [93-119] Blood Pressure BP: 124/93 mmHg BP: (124-137)/(88-97) Respiratory Rate Resp: 16 Resp: [16-24] SpO2 SpO2: 92 % SpO2: [92 %-98 %] I/O last 1 completed shift: In: 764 [I.V.:564; Other:200] Out: 1400 [Urine:1050; Stool:350] Physical Exam: General: NAD, appears uncomfortable, A&Ox3/3 Neuro: NFD HEENT: NCAT, EOMI, anicteric sclerae CVS: RRR, no m/r/g appreciated Pulm: CTAB anteriorly, no incr WOB or w/r/r Abd: Soft, NT, ND, midline incision stapled, no evidence of hematoma, or infection. Minimal erythema around superior edge of incision. Stoma pink, well perfused, Brown watery output in apparatus Skin: Warm, dry, no new rash Ext: WWP, no edema Recent Labs Basename 03/25/13 0509 03/24/13 0612 03/23/13 1715 WBC 11.6* -- -- HGB 11.0* 12.7* 13.4* HCT 33.1* 38.4* 40.6 PLATELET 216 -- -- PT -- -- -- INR -- -- -- PTT -- -- -- Recent Labs Basename 03/25/13 0509 03/24/13 0612 03/23/13 1715 NA 136 -- -- K 4.0 4.6 4.2 CL 98 -- -- CO2 27 -- -- BUN 13 -- -- CREATININE 0.88 -- -- GLUCOSE 110 -- -- CALCIUM 8.3* -- -- MAGNESIUM -- -- -- PHOS -- -- -- New Imaging: ASSESSMENT / PLAN: Danya Argueta is a 43 y.o. male with issues as stated above, now 3 Days Post-Op total partial colectomy with ileostomy. Currently clinically stable, afebrile. Pain well controlled and minimal nausea. Neuro: Pain controlled on epidural and dilaudid PM TECHNICIAN -zofran prn CV: Hx a-fib s/p ablations - metop 5mg iv q6h -lisinopril 10mg qd Pulm: Stable on RA; IS and frequent OOB, ambulation encouraged -home albuterol, advair, spiriva -duonebs prn GI: NPO, minimal ostomy output. Stoma pink with brown watery drainage. Plan to await return of bowel function and continue fluid replacement -ngt if vomits FEN: Monitor and replete lytes prn, monitor UOP -NPO while awaiting return of bowel function -will keep pope today : Pope in, urine clear. ID: Afebrile, no leukocytosis. No active issues Heme: No active issues Endo: No history of DM/need for insulin. -methylprednisolone 20mg qd while npo Ppx: Nexium, subq hep Dispo: Floor status; PT/OT today to encourage OOB to chair and ambulation. ARIANNA BEATTY MD 03/26/2013 10:19 AM * Afsaneh William DT - 03/26/2013 9:37 AM EDT Nutrition Services NPO Note 03/26/2013 Danya Hinojosa Ellie Rodriguez :1970 Admit diagnosis: DAI Wt Readings from Last 3 Encounters: 03/24/13 90.6 kg (199 lb 11.8 oz) 03/24/13 90.6 kg (199 lb 11.8 oz) 03/17/13 92.488 kg (203 lb 14.4 oz) Ht Readings from Last 3 Encounters: 03/24/13 177.8 cm (5' 10) 03/24/13 177.8 cm (5' 10) 03/17/13 177.8 cm (5' 10) Body mass index is 28.66 kg/(m^2). Patient has been NPO and/or on clear liquids for 4 days. If diet can not be advanced within 48 hours, please consider alternative means of nutrition support if consistent with plan of care. AFSANEH WILLIAM DTR * Ora Hernández - 03/26/2013 8:08 AM EDT Ileostomy Pouching: Disposable 1-piece pouch Name: Danya Argueta Type of Ostomy: Ileostomy Use this procedure as a guide when changing your appliance. Read all instructions, assemble all equipment, and empty contents from pouch before beginning actual change. If you have questions, do not hesitate to call Ora Hernández RN [facility] or Radha Salvador RN [facility] at [phone]. Equipment: Company/Order Numbers Wet and dry soft cloth (paper towels) Plastic bag Pen, Scissors, stoma pattern One-piece Pouch Convatec cut-to-fit # 71037 Or Coloplast cut to fit #43023 Protective powder [facility] #: [id number] Stomahesive Paste [facility] #[id number] Non-allergic tape (4 strips) Cloudyn paper tape if necessary Liquid Deodorant Hero M9 #8717 Other Supplies (if any) Procedure: 1. Using pattern, trace stoma size on back of wafer and cut out tracing (Be careful not to cut pouch!). 1. Place wafer in a warm place to make it more pliable. 1. Remove old pouch and wafer from skin and discard in plastic bag, be sure to remove clamp from the old pouch. 1. Wash skin and stoma with warm water and pat skin dry. 1. Examine skin and stoma for any irritation. If skin irritation present, apply a dusting of Stomahesive protective powder. [place] off excess powder, or wafer will not adhere. 1. Remove paper backing from wafer. 1. Apply a bead of Stomahesive paste around cut opening. 1. Apply pouch to skin being sure to center over stoma--angle pouch as desired. Press down firmly, first in center closest to stoma and then outer edges. You may remove paper backing from adhesive outer edges at this point. 1. Attach Clamp. 1. Picture frame (apply 1-piece of tape to each side of the wafer) with waterproof tape when showering, bathing or swimming (optional). Changing Schedule: Twice Weekly Always bring supplies needed for a pouch change when you come in for your clinic visits, or into the hospital. Pharmacy or Medical Supply: [facility] ([place] [phone]) or [facility] or [facility], [place], [employer], etc... High Ileostomy Output Instructions: 1. If you are having > 1.5 liters/24 hrs of Ileostomy output, then you are at increased risk of becoming dehydrated. 2. Dry mouth, dark urine, dizziness, or flu-like symptoms are some signs of dehydration. 3. Please re-hydrate yourself, not with plain water (which can make dehydration worse by diluting the salt in your body) but with sports drinks (like Gatorade), preferably the low sugar type (G2, Propel, Recharge or regular Gatorade mixed half and half with water), coconut water, Pedialyte, or [id number] Oral Rehydration Salts (ORS) available from the Pharmacy. 4. If you are having thin, watery/loose stool then it needs to be thickened with diet: eat stool thickening foods such as the BRAT diet (Bananas, white Rice, Applesauce and [place]) Take metamucil one TBSP in only 4 oz of water, 2-3 times/day to thicken your stool 5. If your stool becomes thicker but still >1.5 liters/24 hrs then start the [id number] Imodium to slow your stool down. Start with 1/2 tablet 30 minutes before meals and at bedtime. If thishelps but not enough then increase to 1-2 tablets 30 minutes before meals and at bedtime to keep stool thick mushy consistency. 6. If you are still having high output then call your team (Surgeon or Ostomy Nurse) at the hospital. *Remember: Do not take extended release pills that may not be absorbed or large pills which may cause a blockage. You may crush non-extended release pills and take them with applesauce, yogurt or pudding. Pt with Ileostomy/Colostomy When to call your screw down/ MD Change in Color: The stoma should always be pink or red in color. Should the color change to white,blue or black, medical notification is required. Bleeding: It is common and normal for the stoma to bleed minimally during gentle washing. Blood found in the pouch requires medical notification. Obstruction (ileostomies only): This situation, moist common with ileostomies, may be due to undigested or improperly chewed foods. Signs and symptoms include, no stool eliminated into the pouch for 6-12hrs, or excess amounts of watery diarrhea, abdominal pain or nausea or vomiting. If swelling of the stoma occurs, a large disposable pouch should be applied. Notify your technical lead or MD. Prolapse: The term implies that the stoma now extends further from the skin surface than it did at discharge from the hospital. An increase of one inch or more requires medical notification. Pain mayor may not accompany a prolapse. Retraction: This term implies that the bowel has slightly fallen back into the abdominal cavity. Itmay become flush with or recessed below the skin. A good seal with the pouch is difficult. Herniation: This term implies that the muscular area in which the stoma is sewn has lost its tone and the entire area, including skin and surrounding stoma now protrudes beyond the normal skin surface. Irritated Skin: Irritated skin can quickly worsen to a difficult to manage situation. Treat irritated skin as you have been taught. If it has not cleared up after one week call your ostomy nurse. Leaky Pouch: If you are having to change the pouch every other day or more frequently due to leakage it is reasonable for you to give your Ostomy Nurse a call. Ileostomy Instructions: 2. Skin: The enzymes present in the ileostomy stool are very irritating to the skin. The longer the skin is exposed to these enzymes, the more irritated the skin will become. The pouch should be changed as soon as possible when a leak develops. The signs of leakage include burning or itching of the skin beneath the appliance or obvious visible leakage. Many of problems with skin care evolve from an improper pattern. You must always be sure the size opening cut in your pouch barrier is not more than 1/8larger than your stoma. If skin becomes irritated, apply a light dusting of protective powder and brush excess off skin; seal this in with a barrier wipe, otherwise pouch will not adhere. If irritated skin does not clear up in one week, call your ostomy nurse. 3. Odor: May indicate infrequent or improper cleansing of pouch, a soiled clamp, or a leaky pouch. Some odoris expected when emptying and rinsing your pouch. This can be neutralized by dropping a liquid deodorizer into your pouch--such as [place] M9 drops. Odor offenders in the food category are: beans, fish, cheese and eggs. Certain medications such as multivitamins or antibiotics can also cause odor. 4. Gas: Gas is a normal product of the intestine. However, excessive gas can be caused by chewing gum, drinking with a straw or drinking carbonated beverages. Other gas-causing foods: broccoli, cabbage, beans, onions, brussel sprouts, beer, cucumbers. 5. Diet: Chew foods well and drink fluids when eating. Try new foods one at a time to be sure that you can tolerate them. Fiber contained in food may cause a blockage in the stoma if chewing has not broken down the fiber. Some of these offenders are popcorn, nuts, micronesian vegetables, coconut, whole kernel corn, seeds, orange pulp, and the skins of fruit. If in doubt of a certain food, eat it in moderationand follow with extra fluid by mouth. 6. Food Blockage: If a blockage occurs, you may experience cramping in the abdomen, little or no stool output, nauseaor vomiting, or a large amount of liquid stool. If you think that a blockage has occurred, drink more fluids and withhold solid foods. A warm bath/shower may relieve the blockage as well. If symptonspersist for more than few hours, Notify your doctor!!! He may ask you to come in to his clinic or the emergency room. 7. Dehydration: Dehydration can easily occur with the flu or normal perspiring on a hot day. Signs of dehydration include dry mouth, a feeling of weakness, muscle cramps in the legs, or decreased urine output. It's important to replace fluid if you have increased perspiration because of activity, heat or fever, orif you have increased diarrhea. Gatorade is a good fluid replacement since it contains sodium and potassium. Other suggested fluids to take include broths, Coke or 7- Up, and tea. If dehydration occurs because of diarrhea, eat bland foods that will also thicken the consistency of stool. These are applesauce, rice, cereals, bananas, peanut butter and breads. If you become dehydrated Call your Doctor!!!, he may want to order antidiarrheal medications. 8. Medications: It is important to remind all you doctors that you have an ileostomy. Some medications are coated with a thick shell and will not dissolve in the upper gastrointestinal tract. These may pass in entirety into the pouch. The same applies to time release medications. Neither of these will do you anygood, they will just increase your pharmacy bill! Laxatives are not needed. Infact, they may cause harm by inducing diarrhea and dehydration. Maalox is a popular antacid which can cause diarrhea if it is taken with any frequency or in large amounts. The antacid Amphogel does not have a laxative effect. 9. Miscellaneous: You should measure your stoma weekly for the first month, then every other week for the second month. (This is when the greatest shrinkage of your stoma occurs.) Measure monthly thereafter. The skin barrier should fit exactly around the stoma or not greater than 1/8 larger. Always carry an extra clamp and skin barrier/pouch with you. Ostomy Resources: Ostomy.org: United Ostomy Association - includes a video Living with an Ostomy [employer] of [place]: www.uoaa.org [place] [employer]: www.fascrs.org/patients/treatments_and_screening/ostomy/ [place] [employer]: www.facs.patienteducation/skills/ostomy.html www.facs.org/patienteducation/skills/dvd.html - includes 10 short professionally produced videos includin. Helping your with home care 2. Your Ostomy 3. Your Operation 4. Pouching systems 5. Emptying a Pouch 6. Changing a Pouch 7. Problem Solving 8. Emergencies 9. Knowledge check 10. Ostomy skills (all modules, 27 minutes) These videos are also on Youtube: search for [place] [employer] Ostomy Education Skills Below is a list of garment websites we other ostomates have found helpful. We do not endorse or have any financial relationship with any of them ?? [facility] Ostomy Support System: www.ostomysuChemclin.PhytoCeutica ?? [place].PhytoCeutica - Freespeeprene MyCube belts. ?? Ostomy[employer]uv[employer] - stylish ostomy underwear and ostomy undergarments ?? [employer].PhytoCeutica - Dont' feel Different . . . FEEL CONFIDENT. * Lauren Clarke RN - 03/26/2013 6:02 AM EDT S: My stomach is cramping O: see strip A: patient denies shortness of breath or chest pain P:Continue to monitor * Hunter Emmanuel - 03/25/2013 8:37 PM EDT Surgery Cross Covering Inter Note Called because patient feeling persistently nauseated, wanted to have NGT inserted as discussed with team during the day. NGT inserted and quickly drained 200 mL yellow-green fluid. However the tube was poorly tolerated by the patient. He demanded that the tube be removed stating that he didn't realize that the tube wasto be left in to drain. Discussed with the patient the reason for leaving the tube in and the risk that his nausea could recur if the tube was removed as there would then be no drainage. Knowing this, he still wished to have the tube taken out so it was removed. Plan to treat nausea with anti-emetics. Mr. Argueta told that we would be happy to reinsert the NGT should his nausea persist. Hunter Emmanuel MD [id number] * Janeth Warren RN - 03/25/2013 7:28 PM EDT Patient Name: Danya Argueta Jr. Patient Age: 43 y.o. Birthdate: 1970 Admit date: 03/23/2013 Attending Physician: Pillo Avina MD Patient c/o acid reflux this tabatha.; given Tums per Dr. Beatty without relief; Dr. Emmanuel notified and he will place NGT. * Radha Salvador RN - 03/25/2013 4:37 PM EDT I met with pt for ostomy teaching and a pouch change. He agreed to change the pouch with me. Pt watched as I applied an Activelife pouch. He did not help today. I demonstrated to him how to empty thepouch. He had about 30cc liquid effluent in the pouch. I encouraged him to practice emptying. Pt was nauseous today and no up for much teaching. We will follow. * Janeth Warren RN - 03/25/2013 1:04 PM EDT Patient Name: Danya Argueta Jr. Patient Age: 43 y.o. Birthdate: 1970 Admit date: 03/23/2013 Attending Physician: Pillo Avina MD Called by Telemetry regarding possible ST changes; had strip sent to unit; Dr. Beatty notified and up to evaluate; patient back to usual rhythm by the time STAT robot technician here; continue to monitor HR--possible need for continued Lopressor. * Yusuf Metz MD - 03/25/2013 10:02 AM EDT Acute Pain Service - Epidural Daily Management Physician: Yusuf Metz M.D. Time of Service: 8:40 a.m. VITAL SIGNS: BP 159/113 Pulse 103 Temp 37.2 ??C (99 ??F) (Oral) Resp 16 Ht 177.8 cm (5' 10) Wt 90.6 kg (199 lb 11.8 oz) BMI 28.66 kg/m2 SpO2 92% Epidural day: 3 days s/p placement POD: 2 days s/p Operative Procedures: @COLECTOMY, TOTAL WITH ILEOSTOMY Pertinent Medications: Continuous Infusions Bupivacaine 1/8 % (1.25 mg/ml) infusing at 14 mls/hour Dilaudid PM TECHNICIAN 0.2-10-5 mg (used 7.2 mg in 24 hours) Heparin 5000 units SQ q 12 hours Assessment: Numerical Rating Scale (NRS) 6 /10,, which is very tolerable Patient states pain has much improved since epidural pulled back and increased yesterday Pain now is well controlled ROS: GI/Bowels NPO. Nausea Yes intermittent Pruritis No Drowsiness No Patient is awake and alert. Deep breathing and coughing well. Demonstrates incentive spirometer to 1500 ml. Moves legs without difficulty. Epidural insertion site clean and without signs of infection. Plan: Continue current regimen. Plan discussed with patient/RN/team. Please call with any questions or concerns. In the presence of Dr. Metz, I am taking down these notes. AFSANEH FREDERICK RN 03/25/2013 Pager # [phone] I performed the above scribed service and agree with the accuracy of the note. * Arianna Beatty - 03/25/2013 8:15 AM EDT COLORECTAL SURGERY INPATIENT PROGRESS NOTE ID: Danya Hinojosa Ellie Rodriguez ([id number]) is a 43 y.o. male admitted on 03/23/2013, now 2 Days Post-Op total abdominal colectomy with end ileostomy as stage 1 eventual IPAA 24 Hour Events/Subjective: - tachycardia continued overnight, sinus - c/o some heartburn this am - pain well controlled Objective: Last value Range last 24 hrs Temperature Temp: 37.1 ??C (98.8 ??F) Temp: [36.8 ??C (98.2 ??F)-37.1 ??C (98.8 ??F)] Heart Rate Heart Rate: 115 Heart Rate: [98-122] Blood Pressure BP: 156/92 mmHg BP: (118-156)/(79-100) Respiratory Rate Resp: 16 Resp: [16-19] SpO2 SpO2: 95 % SpO2: [93 %-95 %] I/O last 1 completed shift: In: 1020 [I.V.:1020] Out: 1900 [Urine:1900] Physical Exam: General: NAD, resting comfortably in bed, A&Ox3/3 Neuro: NFD HEENT: NCAT, EOMI, anicteric sclerae CVS: RRR, no m/r/g appreciated Pulm: CTAB anteriorly, no incr WOB or w/r/r Abd: Soft, NT, ND, midline incision stapled, no evidence of hematoma, or infection. Stoma pink, well perfused, Brown watery output in apparatus Skin: Warm, dry, no new rash Ext: WWP, no edema Recent Labs Basename 03/25/13 0509 03/24/1361103/23/13 1715 WBC 11.6* -- -- HGB 11.0* 12.7* 13.4* HCT 33.1* 38.4* 40.6 PLATELET 216 -- -- PT -- -- -- INR -- -- -- PTT -- -- -- Recent Labs Basename 03/25/13 0509 03/24/1361103/23/13 1715 NA 136 -- -- K 4.0 4.6 4.2 CL 98 -- -- CO2 27 -- -- BUN 13 -- -- CREATININE 0.88 -- -- GLUCOSE 110 -- -- CALCIUM 8.3* -- -- MAGNESIUM -- -- -- PHOS -- -- -- New Imaging: ASSESSMENT / PLAN: Danya Argueta . is a 43 y.o. male with issues as stated above, now 2 Days Post-Op total partial colectomy with ileostomy. Currently clinically stable, afebrile. Pain well controlled and minimal nausea. Neuro: Pain controlled on epidural and dilaudid PM TECHNICIAN -zofran prn CV: Hx a-fib s/p ablations - sinus tach throughout the day/evening - will see if he responds well to 1x dose IV metop Pulm: Stable on RA; IS and frequent OOB, ambulation encouraged -home albuterol, advair, spiriva -duonebs prn GI: NPO, minimal ostomy output. Stoma pink with brown watery drainage. Plan to await return of bowel function and continue fluid replacement FEN: Monitor and replete lytes prn, monitor UOP -NPO while awaiting return of bowel function -will keep pope today : Pope in, urine clear. ID: Afebrile, no leukocytosis. No active issues Heme: No active issues Endo: No history of DM/need for insulin. -methylprednisolone 20mg qd while npo Ppx: Nexium, subq hep Dispo: Floor status; PT/OT today to encourage OOB to chair and ambulation. ARIANNA BEATTY MD 03/25/2013 8:15 AM * Alexei Torres RN - 03/25/2013 6:49 AM EDT Pt mildly diaphoretic/some nausea C/O [id number]---KE aware--in to see-- * Alexei Torres RN - 03/25/2013 5:04 AM EDT aware of 154/99--EKG done--pt remains sinus-tach---labs ordered-- * Alexei Torres RN - 03/25/2013 4:30 AM EDT in to see-- * Alexei Torres, RN - 03/25/2013 4:19 AM EDT Pt awakened at 0400 w/feeling of pope catheter being pulled---Realized he had turned over in bed and may have momentarily caught it--HR up to 140, but did not sustain--soon down to 110-120 which hasbeen baseline--BP,however, was elevated--142/100--150/101--153/102 each at 5 minute intervals--denies chest pain ,but did say that he could feel his HR--MD made aware--No new orders at this time,but MD said would be over to see pt---- * Lauren Clarke RN - 03/24/2013 6:42 PM EDT S: I feel good O: see tele strip A: Patient denies shortness of breath, chest pain or discomfort, tolerating current rate and rhythm P; Continue to monitor * Yusuf Metz MD - 03/24/2013 11:48 AM EDT Acute Pain Service - Epidural Daily Management Physician: Andriy Metz MD Time of Service: 11:00 AM VITAL SIGNS: BP 132/81 Pulse 110 Temp 36.9 ??C (98.4 ??F) (Oral) Resp 17 Ht 177.8 cm (5' 10) Wt 90.6 kg (199 lb 11.8 oz) BMI 28.66 kg/m2 SpO2 94% Epidural day: 2 days s/p placement POD: 1 days s/p Operative Procedures: @COLECTOMY, TOTAL WITH ILEOSTOMY Pertinent Medications: Continuous Infusions: Bupivacaine 1/8 % (1.25 mg/ml) infusing at 10 mls/hour Heparin 5,000U SC Q12H PM TECHNICIAN: Dilaudid 0.2/03/06, used 4 mg since surgery yesterday Assessment: Numerical Rating Scale (NRS) 6/10 Pain now is located in the patient's mid to lower abdomen, the bulk of his pain settling in the lower portion. ROS: GI/Bowels NPO diet, give meds. Nausea No Pruritis No Drowsiness No Patient is awake and alert. Deep breathing and coughing well, demonstrates IS to 2,000 ml. Moves legs without difficulty, seated in the recliner. The patient was able to stand quite abruptly, when asked to view his back, with no guarding Epidural insertion site clean and without signs of infection. Diminished sensation to cold, T4-T8, bilaterally. Plan: Pull back the epidural catheter, from 14 cm to 12.5 cm, in an effort to improve epidural coverage at the lower end of the patient's incision. This was done using aseptic technique, a new sterile dressing was applied Increase the hourly epidural infusion rate to 14 ml/hr. Plan discussed with patient/RN. Please call with any questions or concerns. In the presence of Dr. Metz, I am taking down these notes. JAELYN MARTINEZ, RN 03/24/2013 Pager # [phone] I performed the above scribed service and agree with the accuracy of the note. * Deidra Shell RN - 03/24/2013 10:52 AM EDT Care Management/ CRC Pager# [phone]/ Assessment and Initial discharge planning S: I don't think that I will be needing home RN visits. I feel confident that I will learn about the pouch emptying and bag change. If I change my mind, I'll let you know. O: Met with patient this morning. Notes reviewed. Patient lives with his Deidra in [facility]. Patient has Medicare Advance [facility] insurance. No Advance Directives on file here at [facility]. 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 At this timepatient is NPO except meds, IVF at 100/hr. Solumedrol 20mg IV q8hr. Ancef IV q8hr [id number], Flagyl IV q8hr [id number]. Epidural with Bupivicaine. Hydromorphone PM TECHNICIAN. Pope to gravity. Ileostomy pouch intact. Enterostomal Therapy nurses following. Patient OOB ambulating around PODs. PT consult. 93% on RA. Advair inhaler q12hr. Albuterol inhaler q4hr prn. A: Patient progressing post-op. P: I will continue in CRC role, following patient's in-hospital course, offering support to patient/family. I am available to assist should patient agree to VNA services. * Lauren Clarke RN - 03/24/2013 10:34 AM EDT 1030 change in heart rate, MD Beatty updated, see new orders. * Arianna Beatty - 03/24/2013 9:08 AM EDT COLORECTAL SURGERY INPATIENT PROGRESS NOTE ID: Danya Argueta Jr. ([id number]) is a 43 y.o. male admitted on 03/23/2013, now 1 Day Post-Op 24 Hour Events/Subjective: - Patient feels well this AM, pain well controlled with dilaudid PM TECHNICIAN - Denies BM, or flatus, with slight sero-sanginous fluid in ileostomy bag. - Denies any N/V, CP or SOB Objective: Last value Range last 24 hrs Temperature Temp: 36.9 ??C (98.4 ??F) Temp: [36.6 ??C (97.9 ??F)-37.4 ??C (99.3 ??F)] Heart Rate Heart Rate: 110 Heart Rate: [81-123] Blood Pressure BP: 132/81 mmHg BP: (124-133)/(80-81) Respiratory Rate Resp: 17 Resp: [12-18] SpO2 SpO2: 94 % SpO2: [92 %-99 %] I/O last 1 completed shift: In: 1339.8 [I.V.:1339.8] Out: 1000 [Urine:1000] Physical Exam: General: NAD, resting comfortably in bed, tremulous, A&Ox3/3 Neuro: NFD HEENT: NCAT, EOMI, anicteric sclerae CVS: RRR, no m/r/g appreciated Pulm: CTAB anteriorly, no incr WOB or w/r/r Abd: Soft, NT, ND, midline incision stapled, no evidence of hematoma, or infection. Minimal serosanguinous output Skin: Warm, dry, no new rash Ext: WWP, no edema Recent Labs Basename 03/24/13 0612 03/23/13 1715 WBC -- -- HGB 12.7* 13.4* HCT 38.4* 40.6 PLATELET -- -- PT -- -- INR -- -- PTT -- -- Recent Labs Basename 03/24/13 0612 03/23/13 1715 NA -- -- K 4.6 4.2 CL -- -- CO2 -- -- BUN -- -- CREATININE -- -- GLUCOSE -- -- CALCIUM -- -- MAGNESIUM -- -- PHOS -- -- New Imaging: ASSESSMENT / PLAN: Danya Argueta Jr. is a 43 y.o. male with issues as stated above, now 1 Day Post-Op total partial colectomy with ileostomy. Currently clinically stable, afebrile. Pain well controlled and minimal nausea. Neuro: Pain controlled on epidural and dilaudid PM TECHNICIAN -zofran prn CV: No history of cardiovascular disease. No active issues. HDS Pulm: Stable on RA; IS and frequent OOB, ambulation encouraged -home albuterol, advair, spiriva -duonebs prn GI: NPO, not having flatus or stool from ostomy. Stoma pink with some serosanguinous drainage in applicance. Plan to await return of bowel function and continue fluid replacement FEN: Monitor and replete lytes prn, monitor UOP -NPO while awaiting return of bowel function -will likely dc pope once ambulating : Pope in, urine clear. ID: Afebrile, no leukocytosis. -Perioperative abx ancef and metronidazole to end today. Heme: No active issues Endo: No history of DM/need for insulin. -methylprednisolone 20mg q8h Ppx: Nexium, subq hep Dispo: Floor status; PT/OT today to encourage OOB to chair and ambulation. ARIANNA BEATTY MD 03/24/2013 9:08 AM * Lauren Blas RN - 03/23/2013 10:29 PM EDT 2100: Pt admitted to 426 from PACU in standard bed. Pt A & O x 4, VSS on 3L NC, weaned to 2L. Pt sleeping soundly/snoring upon metal polisher and buffer apprentice; upon awakening reporting 8/10 pain over abdomen, encouraged to use PM TECHNICIAN. Epidural intact, T6-T8 levels. Midline DSD and ileostomy intact and WNL. Bilateral peripheral IVs patent, MIVF infusing. Pope catheter secured, adequate UOP. Pt oriented to room, staff and floor routine. Call ellie in reach, will continue to monitor. * Hunter Emmanuel - 03/23/2013 8:38 PM EDT Surgery Post Op Check Danya Argueta Jr. is a 43 y.o. male status post open colectomy with iliostomy S: Pain much better controlled now after epidural boluses from APS. No nausea/vomiting, chest pain,SOB O: Temp: [36.6 ??C (97.9 ??F)-37.4 ??C (99.3 ??F)] Heart Rate: [112-123] Resp: [12-18] BP: (128-157)/(78-97) SpO2: [92 %-98 %] I/O last 3 completed shifts: In: 4381 [I.V.:4381] Out: 1650 [Urine:1350; Blood:300] UOP since OR: 650 mL in past 3.5 hours Iliosotmy: 20 mL serosanguinous drainage Physical Exam Gen: NAD, sleeping CVS: Regular rate, no murmurs rubs or gallops Resp: Clear bilaterally Abd: Midline dressing without drainage. Iliostomy stoma pink, draining serosanguinous drainage intobag in scant amounts. Appropriate abdominal tenderness. No rebound or involuntary guarding. No distended Ext: WWP AP Danya Argueta Jr. is a 43 y.o. male status post open colectomy and end iliostomy currently in stable condition and recovering well - pain well controlled - thank you APS for your help - hemodynamically stable - UOP adequate - continue I/O - Hgb post op 13.4 - stable - was 14 intra op - K 4.2, stable - Floor status, Full code Hunter Emmanuel MD 3126 * Nan Parnell RN - 03/23/2013 6:36 PM EDT Acute Pain Service 1745 pm Assessment: Pt seen in PACU to evaluate epidural function Pt. States now sensory deficit to cold moving legs, denies numbness in legs and feet. Plan: 175: Dr. Eckert bolused Fentanyl 25mcg and Bupivacaine 1/4% 3 mL Remained hemodynamically stable for the next 20 min after bolus. Pt states a little improvement with pain rating 8/10 and falls asleep easily. No sensory deficit noted with ice. Epidural dressing dry and intact. 1813: Bolused Bupivacaine 1/4% 2 mL and epidural rate increased to 10 ml/hr. After 20 mins pt states sl decrease in sensation at T6- 8 level to ice. Appears very comfortable and sleeping unless disturbed. Nan Parnell RN Beeper [phone] * Do Hay RN - 03/23/2013 5:19 PM EDT 1715 report taken and care assumed. Alarms checked and customized for this pt based on his needs. [facility] 1830 Pt dozing. Does not appear to have a change in his sensory level after 2 boluses through his epidural catheter. States pain is getting better. BP lower as well. * Merlyn Cisneros MD - 03/23/2013 9:29 AM EDT CRS Pre Op Interval Note 43 M with long history of UC, last seen in clinic on 03/17, with plans for eventual IPAA as 2 or 3 stage procedure Denies any interval health changes. Patient Vitals for the past 8 hrs: BP Temp Pulse Resp SpO2 Height Weight 03/23/13 0919 142/89 mmHg 36.7 ??C (98.1 ??F) 81 16 99 % 177.8 cm (5' 10) 90.719 kg (200 lb) NAD RRR Clear Soft, NT, ostomy site marking on R abd Will proceed as planned; colectomy/proctectomy with IPAA and diverting loop vs colectomy and ileostomy with subsequent proctectomy and IPAA; will determine intraoperatively Consented. No marking necessary. documented in this encounter Miscellaneous Notes * Miscellaneous - Provider, Scanning - 03/31/2013 9:24 AM EDT * Miscellaneous - Provider, Scanning - 03/31/2013 9:24 AM EDT * Med Student Progress Note - Alejandra Johnston - 03/30/2013 9:43 AM EDT Patient ID: 43yo male s/p total colectomy for chronic ulcerative colitis, POD 7 24-hour events: ostomy catheter removed yesterday evening, ostomy output remains high, pills are coming out of ostomy whole Subjective: Mr. Argueta reports feeling good this morning. He is able to tolerate regular food withouta problem. Pain has been manageable. Inpatient Medications: Scheduled Meds: ??? psyllium 1 packet Oral BID ??? predniSONE 20 mg Oral Daily ??? acetaminophen 1,000 mg Oral Q6H ??? [COMPLETED] potassium chloride 10 mEq Oral TID ??? [COMPLETED] metoprolol 25 mg Oral Q12H CHRISTIANO ??? [DISCONTINUED] potassium chloride 10 mEq Intravenous Q2H ??? [DISCONTINUED] PM TECHNICIAN nieves ??? lisinopril 10 mg Oral Daily ??? [DISCONTINUED] esomeprazole 40 mg Oral Daily ??? [DISCONTINUED] esomeprazole 40 mg Intravenous Daily ??? [DISCONTINUED] metoprolol 5 mg Intravenous Q6H ??? PARoxetine 40 mg Oral QAM ??? fluticasone-salmeterol 2 puff Inhalation Q12H CHRISTIANO ??? sodium chloride 0.9 % 10 mL Intravenous Q8H CHRISTIANO ??? heparin (porcine) 5,000 Units Subcutaneous Q12H CHRISTIANO Continuous Infusions: ??? [DISCONTINUED] dextrose 5% and sodium chloride 0.45% Stopped (03/29/131835) ??? [DISCONTINUED] HYDROmorphone ??? [DISCONTINUED] PM TECHNICIAN nieves PRN Meds:ibuprofen, HYDROmorphone, HYDROmorphone, HYDROmorphone, [DISCONTINUED] traMADol, calcium carbonate, nalOXone, albuterol, ondansetron, ondansetron, [DISCONTINUED] prochlorperazine, [DISCONTINUED] nalOXone Vitals: Last value Range last 24 hrs Temperature Temp: 36.4 ??C (97.5 ??F) Temp: [36.4 ??C (97.5 ??F)-37.5 ??C (99.5 ??F)] Heart Rate Heart Rate: 84 Heart Rate: [56-111] Blood Pressure BP: 108/76 mmHg BP: (105-131)/(67-76) Respiratory Rate Resp: 16 Resp: [16-18] SpO2 SpO2: 98 % SpO2: [95 %-98 %] I/O: Intake/Output Summary (Last 24 hours) at 03/30/13 0943 Last data filed at 03/30/13 0700 Gross per 24 hour Intake 1764 ml Output 2790 ml Net -1026 ml Patient Vitals for the past 168 hrs: Weight 03/29/13 0517 83.5 kg (184 lb 1.4 oz) 03/28/13 0647 84 kg (185 lb 3 oz) 03/27/13 0403 84.6 kg (186 lb 8.2 oz) 03/24/13 0345 90.6 kg (199 lb 11.8 oz) Physical Exam: Gen: alert, conversant, laying comfortably in bed CV: RRR without murmur, good peripheral pulses RESP: breathing comfortably, anterior lung john clear to auscultation ABD: soft, mildly distended, ostomy in place with thin dark brown liquid output, incision is clean,dry and intact with dressing on inferior aspect EXT: warm and well-perfused Labs: Recent Labs Basename 03/29/13 0922 03/27/13 1105 WBC 11.8* 13.7* RBC 4.60* 4.75 HGB 13.4* 14.2 HCT 39.4* 41.3 MCV 85.7 86.9 MCH 29.1 29.9 MCHC 34.0 34.4 PLATELET 321 314 RDWCV 13.3 13.6 Recent Labs Basename 03/30/13 0605 03/29/13 0644 03/27/13 1105 03/26/13 1052 NA -- 133* 135 134* K 3.6 3.5 3.7 -- CL -- 99 99 98 CO2 -- 23 22 22 BUN -- 18 29* 24* CREATININE -- 0.91 0.99 0.99 Assessment: 43yo male on POD 7 for total colectomy who is recovering well and can likely return home within the next day or two. He continues to have high output through his ostomy which puts him at risk for dehydration. Plan: NEURO: pain has been well-controlled CV: heart rate and blood pressure have been stable, continue lisinopril PULM: no issues at this time GI/FEN: tolerating low-residue diet, consider adding Metamucil to thicken stool and slow down ostomy output, : continue to monitor urine output, last UA showed concentrated urine with specific gravity of 1.031, continue IV maintenance fluids and encourage PO intake HEME: WBC has been trending downward, with prednisone taper and continued recovering this should normalize //Ppx: DVT: heparin Disposition: can likely return home tonight or tomorrow * Plan of Care - Niya Metz RN - 03/30/2013 5:07 AM EDT Problem: Pain, Acute (Adult, Obstetric) Goal: Acute Pain: Acceptable Pain Control/Comfort Level - Pain, Acute (Adult, Obstetric) Pt. Reporting pain of 5-6/10 as documented on doc flowsheet. Pt. Reporting good relief with scheduled tylenol. Pt. Encouraged to let RN know if experiencing changes in pain. Will continue to monitor. Problem: Trauma/Injury Risk (Adult, Obstetric) Goal: Trauma/Injury Risk: Absence of Trauma/Injury/Falls Outcome: Absent and monitoring Patient scored at low risk to fall. Please see fall risk assessment for score and interventions. Call argueta within reach. Pt. Encouraged to ring for assistance prior to getting out of bed. Will continue to monitor. Problem: Skin Integrity Impairment, Risk/Actual (Adult, Obstetric) Goal: Skin Integrity Impairment, Risk/Actual: Skin Integrity/Wound Healing Outcome: Absent and monitoring Pt's skin free from pressure ulcers. Please see Gilmer assessment score for documentation and interventions. Pt encouraged to ambulate and change positions frequently. Will continue to monitor. * Plan of Care - Sandra Sanchez RN - 03/29/2013 6:53 PM EDT Problem: Pain, Acute (Adult, Obstetric) Goal: Acute Pain: Acceptable Pain Control/Comfort Level - Pain, Acute (Adult, Obstetric) Outcome: Absent and monitoring Pt. Transitioned off of PM TECHNICIAN today. Pt. Started on scheduled Tylenol & PRN Dilaudid. Pt. Reportsadequate pain control with current regimen. Problem: Skin Integrity Impairment, Risk/Actual (Adult, Obstetric) Goal: Skin Integrity Impairment, Risk/Actual: Skin Integrity/Wound Healing Outcome: Present (see interventions, notes) Midline incision with drake ASSISTANT MEDIA PLANNER intact. Area of redness around incision marked. No progression noted outside of hernandez. * Plan of Care - Hortencia Storey - 03/29/2013 1:49 PM EDT Problem: Trauma/Injury Risk (Adult, Obstetric) Intervention: Promote Self-Care D: Patient independent with ADLs and mobility. A: Encourage patient to ambulate around unit as tolerated and encourage personal hygiene. R: Patient is ambulating an adequate amount and is keeping up with his hygiene. Patient continues to heal and feel better * Discharge Summary - Arianna Beatty - 03/29/2013 12:05 PM EDT Inpatient - Discharge Summary Patient Name: Danya Argueta Jr. Patient Age: 43 y.o. Birthdate: 1970 Admit date: 03/23/2013 Discharge date and time: 03/30/2013 Attending Physician: Pillo Avina MD Primary Diagnosis: Secondary Diagnosis: Active Hospital Problems Diagnosis No active problems to display. Resolved Hospital Problems Diagnosis Date Resolved ??? Atrial fibrillation 03/24/2013 S/p ablation x2 Active Non-Hospital Problems Diagnosis ??? Atrial fibrillation ??? Asthma ??? Depression ??? Ulcerative (chronic) enterocolitis ??? Tremor HPI: Danya Argueta Jr., is a 43 y.o. male, with a history of afib, and ulcerative colitis who presented for planned total abdominal colectomy with end ileostomy as stage 1 of eventual IPAA Operations/Major Procedures: Operations: 03/23/2013 Surgeon(s) and Role: * Pillo Avina MD - Primary * Merlyn Cisneros MD - Resident-Surgeon Chief: Procedure(s): @COLECTOMY, TOTAL WITH ILEOSTOMY Hospital Course: Danya Argueta Jr. was taken to the operating room where the above procedures were performed. He tolerated the operation well and without complication. He was admitted post-operatively for observationand management. The patient's hospital course was complicated by tachycardia and hypertension, possibly due to perioperative steroid use, which responded well to scheduled IV metoprolol (5mg q6h) [id number] daily lisinopril. He also experienced some orthostasis which responded appropriately to increased IV fluids. The patient also experienced some nausea with delayed return of bowel function until POD5. On POD#6 the patient's diet was advanced and well tolerated. The lisinopril was continued but metoprolol stopped, and his blood pressure remained stable. On 7 Days Post-Op, Danya Argueta Jr. was deemed stable for discharge to home. he was afebrile, tolerating a regular diet, ambulating and voiding without difficulty, with pain well controlled on oral medications. He was discharged with lisinopril to continue while on a steroid taper, with the anticipation of the patient not requiring continued anti-hypertensive medication once off steroids. Follow-up was planned for April 07 for staple removal and May 03 for post- op check. Pending Lab Data at Discharge: None Important Studies and Lab Data: Labs: . Recent Labs Basename 03/29/13 0922 03/27/13 1105 03/25/13 0509 WBC 11.8* 13.7* 11.6* HGB 13.4* 14.2 11.0* HCT 39.4* 41.3 33.1* PLATELET 321 314 216 Recent Labs Basename 03/30/13 0605 03/29/13 0644 03/27/13 1105 03/26/13 1052 NA -- 133* 135 134* K 3.6 3.5 3.7 -- CL -- 99 99 98 CO2 -- 23 22 22 BUN -- 18 29* 24* CREATININE -- 0.91 0.99 0.99 No results found for this basename: AST:3,ALT:3,ALKPHOS:3,BILITOT:3,BILIDIR:3 in the last 7068 hours Recent Labs Basename 03/29/13 0644 CALCIUM 8.9 PHOS -- No results found for this basename: CHLPL,HDL,LDLCHOL,LDLDIRECT,TRIG in the last 7068 hours Imaging/Studies: none Exam: Temp: [36.4 ??C (97.5 ??F)-37.5 ??C (99.5 ??F)] Heart Rate: [56-111] Resp: [16-18] BP: (105-131)/(67-76) SpO2: [95 %-98 %] I/O last 3 completed shifts: In: 3378 [P.O.:1560; I.V.:1761; IV Piggyback:57] Out: 4565 [Urine:2024; Stool:2540] Gen: lying in bed, NAD, oriented x3 Pulm: CTAB, no crackles/wheeze Card: normal rate/rhythm, no m/r/g Abd: non-distended, normal BS, soft, non-tender to palpation Wound: incision clean, dry, intact, no purulent drainage, minimal erythema surround upper 1/3 of incision Ext: no edema, 2+ peripheral pulses Discharge to: Home Discharge Conditions/Prognosis: Stable Discharge Medications: Medications prior to admission that will be resumed at discharge: Medication Sig Dispense Refill ??? PARoxetine (PAXIL) 40 mg tablet Take 40 mg by mouth every morning. ??? fluticasone-salmeterol (ADVAIR) 250-50 mcg/dose diskus inhaler Inhale 1 puff into the lungs 2 times daily. ??? albuterol (PROVENTIL HFA;VENTOLIN HFA) 90 mcg/actuation inhaler Inhale 2 puffs into the lungs 4times daily as needed. Use with spacer ??? montelukast (SINGULAIR) 10 mg tablet Take 10 mg by mouth daily. New medications prescribed at discharge: Medication Sig Dispense Refill ??? acetaminophen (TYLENOL) 500 mg tablet Take 2 tablets by mouth every 6 hours. 30 tablet ??? HYDROmorphone (DILAUDID) 2 mg tablet Take 1 tablet by mouth every 4 hours as needed for Pain (for mild pain). 20 tablet 0 ??? ibuprofen (ADVIL;MOTRIN) 200 mg tablet Take 3 tablets by mouth every 6 hours as needed for Pain. 30 tablet ??? lisinopril (PRINIVIL;ZESTRIL) 10 mg tablet Take 1 tablet by mouth daily. 30 tablet 3 ??? predniSONE (DELTASONE) 5 mg tablet Take 15mg (3tabs) daily x7 days, then 10mg (2tabs) daily x7 days, then 5mg (1tab) daily x7days, then stop. 42 tablet 0 ??? psyllium 6 gram packet Take 1 packet by mouth 2 times daily. 30 each 6 Updated Allergies/ADRs: No Known Allergies Follow-up Recommendations for Providers: - The patient is being discharged on a steroid taper (prednisone 15mg x1 week, then 10mg x1 week, then 5mg x1 week) - The patient experienced hypertension and tachycardia as a result of high dose perioperative steroids. He was given IV metoprolol and PO lisinopril while in patient. On discharge the lisinopril (10mg) is being continued but we expect this to be easily discontinued in the near future. PCP: LISA ROBERTS MD Scheduled Appointments: Future Appointments Date Time Provider Department Center 04/07/2013 11:00 AM Nurse, General Surgery [facility] 04/07/2013 11:00 AM Ostomy Nurse, General Surgery [facility] [address] [place] [address] [facility]IN 05/03/2013 4:00 PM Pillo Avina MD [facility] [address] [place] [address] [facility]IN 05/03/2013 4:00 PM Ostomy Nurse, General Surgery [facility] [address] [place] [address] Outpatient Services/Studies: No discharge procedures on file. Instructions Given to Patient at Discharge:. An After Visit Summary was printed and given to the patient. Provider Instructions Colon and Rectal Surgery Patient Discharge Instructions Activity level: Avoid heavy lifting for the next 4 weeks or until cleared to do so at follow-up appointment. Otherwise activity as tolerated by comfort level. Diet: You may resume your regular diet as tolerated. If your doctor has instructed you to have a low residue or low fiber diet then avoid fresh fruits/fresh vegetables (cooked are OK) for 4 weeks or as instructed. You should try and drink 2 liters of fluids daily. Driving: No driving while still taking opioid pain medications (wait at least 6- 8 hours since last dose). No driving if you are still sore from surgery as it may limit your ability to react quickly if necessary. Shower/Bath: You may shower and get incision(s) wet. Pat dry immediately following. Do not scrub them vigorously for the next 2-3 weeks. Do not soak incision(s) for the next 2 weeks (i.e. soaking in bath or swimming) as this may promote a wound infection. Wound Care: Wash incision with soap and water, pat dry, and leave open to air. Allow steri-strips (pieces of tape) to fall off on their own if you have them. You may cover with gauze as needed to prevent incision rubbing on clothes or for any seepage. If you have skin drake you will need to have them removed in 12-14 days. This can be done by yourPCP or you can come back to the General surgery clinic to have these removed by the General Surgerynurses on (see below). Steroid Taper Instructions: -Take 15 mg of prednisone (3 tablets) daily for 7 days, then -Take 10 mg prednisone (2 tablets) daily for 7 days, then -Take 5 mg prednisone (1 tablet) for 7 days, then stop. Follow up Appointments: 1. You have a follow-up appointment with the General Surgery Nurses at the [facility] for staple removal and wound check as above. 2. You have a follow up appointment with Dr. Shields and the Ostomy Nurses at the [facility] on as above, respectively. You will receive a phone call and/or letter in the mail with information about these appointments. Please call [phone] (clinic number for appointments only) to confirm date and time of your appointments or if you do not receive information about your appointment in a timely manner. Call your doctor if: You develop any of the following sings or symptoms of infection: o Redness or swelling of your incision (some mild redness around the incision and the staple sites is normal) o Drainage or bleeding from your incision o Fever over 100.5 F o Increased pain or discomfort at the incision site Persistent nausea and/or vomiting or the inability to keep foods or fluids down in a 24 hour period. Signs or symptoms of dehydration: o Dry mouth o Dark, concentrated urine, or lack of urine o Lightheadedness Any other concerning sign or symptom such as shortness or breath, chest pain, pain with urination or other signs of urinary tract infection (UTI), or new leg pain/swelling. Also, please call if you develop increasing abdominal pain, increasing abdominal pain, abdominal firmness, if you stop passinggas or stool for an extended period of time, or bloody bowel movements/vomitting. CALL THE GENERAL SURGERY CLINIC DURING WORKING HOURS AT , OR CALL AFTER CLINIC HOURS, WEEKENDS AND HOLIDAYS: ASK FOR THE SURGERY RESIDENT MASTER SHEET CLERK IF ANY OF THE ABOVE OCCUR. Ileostomy Pouching: Disposable 1-piece pouch Name: Danya Argueta Type of Ostomy: Ileostomy Use this procedure as a guide when changing your appliance. Read all instructions, assemble all equipment, and empty contents from pouch before beginning actual change. If you have questions, do not hesitate to call Ora Hernández RN CWOCN or Radha Salvador RN CWOCN at [phone]. Equipment: Company/Order Numbers Wet and dry soft cloth (paper towels) Plastic bag Pen, Scissors, stoma pattern One-piece Pouch Convatec cut-to-fit # [id number] Or Coloplast cut to fit #[id number] Protective powder Convate #: [id number] Stomahesive Paste Convate #[id number] Non-allergic tape (4 strips) Cloudyn paper tape if necessary Liquid Deodorant Hero M9 #7717 Other Supplies (if any) Procedure: 1. Using pattern, trace stoma size on back of wafer and cut out tracing (Be careful not to cut pouch!). 2. Place wafer in a warm place to make it more pliable. 3. Remove old pouch and wafer from skin and discard in plastic bag, be sure to remove clamp from the old pouch. 4. Wash skin and stoma with warm water and pat skin dry. 5. Examine skin and stoma for any irritation. If skin irritation present, apply a dusting of Stomahesive protective powder. Makoti off excess powder, or wafer will not adhere. 6. Remove paper backing from wafer. 7. Apply a bead of Stomahesive paste around cut opening. 8. Apply pouch to skin being sure to center over stoma--angle pouch as desired. Press down firmly, first in center closest to stoma and then outer edges. You may remove paper backing from adhesive outer edges at this point. 9. Attach Clamp. 10. Picture frame (apply 1-piece of tape to each side of the wafer) with waterproof tape when showering, bathing or swimming (optional). Changing Schedule: Twice Weekly Always bring supplies needed for a pouch change when you come in for your clinic visits, or into the hospital. Pharmacy or Medical Supply: [facility] ([place]ju[place]ita [phone]) or [facility] or [facility], [place], [facility], etc... DIVISION OF COLON AND RECTAL SURGERY High Ileostomy Output Patient Instructions: This content was designed for use in [facility] Division of Colon & Rectal Surgery Patients Only Patients with new ileostomies are especially prone to dehydration - the most common preventable cause of readmission to the hospital after you are discharged. Please take the following instructions seriously in order to avoid being re-admitted for dehydration. Age over 50 and diuretic use are knownrisk factors. 1. If you are having >1.5 liters (about 6 1/2 cups or 50 ounces) per 24 hours of ileostomy output, then you are at increased risk of becoming dehydrated. 2. Dry mouth, dark urine or less than normal urine output, dizziness, or flu- like symptoms are somesigns of dehydration. 3. Please re-hydrate yourself not with plain water (which can make dehydration worse by diluting the salt in your body) but with coconut water, Pedialyte, or [id number] Oral Rehydration Solutions (ORS) available from the pharmacy. 4. If you are having thin watery/loose stool then it needs to be thickened with diet ?? eat stool thickening foods such as the BRAT diet (soft Bananas, white Rice, Applesauce, [place]) as well as cheese, creamy peanut butter, pasta, mashed potatoes. ?? take Metamucil one TABLESPOON in only 4 oz. of water two to three times per day to thicken your stool. ?? Drink most of your liquids between meals (not with meals) to maximize absorption of the food youeat. ?? Do not restrict salt in your diet, as sodium losses in ostomy output can be great. ?? Potato chips and Gatorade can help to thicken the stool and replace salt losses quickly. 5. If your stool becomes thicker but still >1.5L per 24 hours then start [id number] Imodium to slow your stool down ?? Start with half a tablet 30 minutes before meals and at bedtime. ?? If this helps but not enough then increase to 1 tablet 30 minutes before meals and at bedtime. ?? If this helps but not enough then increase to 2 tablets 30 minutes before meals and at bedtime. 6. If you are still having high output then call your team (doctor or stoma nurse) at the hospital (as above). Remember do not take extended release pills or large pills which may cause a blockage. You may crush non-extended release pills and take them with applesauce, yogurt, or pudding. References: Steve Kaminski et al. Readmission for Dehydration or Renal Failure After Ileostomy Creation - risk factor = age > 50; another study showed risk factor = diuretic use. Gaby Quarles et al. Ileostomy Pathway Virtually Eliminates Readmissions for Dehydration in New Ostomates. Ostomy Resources: Ostomy.org: [employer] Ost[employer] Association - includes a video Living with an Ostomy [employer] of [place]: www.uoaa.org [place] [employer]: www.fascrs.org/patients/treatments_and_screening/ostomy/ [place] [employer]: www.facs.patienteducation/skills/ostomy.html www.facs.org/patienteducation/skills/dvd.html - includes 10 short professionally produced videos includin. Helping your with home care 2. Your Ostomy 3. Your Operation 4. Pouching systems 5. Emptying a Pouch 6. Changing a Pouch 7. Problem Solving 8. Emergencies 9. Knowledge check 10. Ostomy skills (all modules, 27 minutes) These videos are also on Youtube: search for [place] [employer] Ostomy Education Skills Below is a list of garment websites we other ostomates have found helpful. We do not endorse or have any financial relationship with any of them ?? [employer] - custom neoprene swimming belts. ?? OstomySeTagent.PhytoCeutica - stylish ostomy underwear and ostomy undergarments ?? Plinga - Dont' feel Different . . . FEEL CONFIDENT. Ileostomy Instructions: 1. Skin: The enzymes present in the ileostomy stool are very irritating to the skin. The longer theskin is exposed to these enzymes, the more irritated the skin will become. The pouch should be changed as soon as possible when a leak develops. The signs of leakage include burning or itching of theskin beneath the appliance or obvious visible leakage. Many of problems with skin care evolve from an improper pattern. You must always be sure the size opening cut in your pouch barrier is not more than 1/8 larger than your stoma. If skin becomes irritated, apply a light dusting of protective powder and brush excess off skin; seal this in with a barrier wipe, otherwise pouch will not adhere. Ifirritated skin does not clear up in one week, call your ostomy nurse. 2. Odor: May indicate infrequent or improper cleansing of pouch, a soiled clamp, or a leaky pouch. Some odoris expected when emptying and rinsing your pouch. This can be neutralized by dropping a liquid deodorizer into your pouch--such as [place] M9 drops. Odor offenders in the food category are: beans, fish, cheese and eggs. Certain medications such as multivitamins or antibiotics can also cause odor. 3. Gas: Gas is a normal product of the intestine. However, excessive gas can be caused by chewing gum, drinking with a straw or drinking carbonated beverages. Other gas-causing foods: broccoli, cabbage, beans, onions, brussel sprouts, beer, cucumbers. 4. Diet: Chew foods well and drink fluids when eating. Try new foods one at a time to be sure that you can tolerate them. Fiber contained in food may cause a blockage in the stoma if chewing has not broken down the fiber. Some of these offenders are popcorn, nuts, micronesian vegetables, coconut, whole kernel corn, seeds, orange pulp, and the skins of fruit. If in doubt of a certain food, eat it in moderationand follow with extra fluid by mouth. 5. Food Blockage: If a blockage occurs, you may experience cramping in the abdomen, little or no stool output, nauseaor vomiting, or a large amount of liquid stool. If you think that a blockage has occurred, drink more fluids and withhold solid foods. A warm bath/shower may relieve the blockage as well. If symptonspersist for more than few hours, Notify your doctor!!! He may ask you to come in to his clinic or the emergency room. 6. Dehydration: Dehydration can easily occur with the flu or normal perspiring on a hot day. Signs of dehydration include dry mouth, a feeling of weakness, muscle cramps in the legs, or decreased urine output. It's important to replace fluid if you have increased perspiration because of activity, heat or fever, orif you have increased diarrhea. Gatorade is a good fluid replacement since it contains sodium and potassium. Other suggested fluids to take include broths, Coke or 7- Up, and tea. If dehydration occurs because of diarrhea, eat bland foods that will also thicken the consistency of stool. These are applesauce, rice, cereals, bananas, peanut butter and breads. If you become dehydrated Call your Doctor!!!, he may want to order antidiarrheal medications. 7. Medications: It is important to remind all you doctors that you have an ileostomy. Some medications are coated with a thick shell and will not dissolve in the upper gastrointestinal tract. These may pass in entirety into the pouch. The same applies to time release medications. Neither of these will do you anygood, they will just increase your pharmacy bill! Laxatives are not needed. Infact, they may cause harm by inducing diarrhea and dehydration. Maalox is a popular antacid which can cause diarrhea if it is taken with any frequency or in large amounts. The antacid Amphogel does not have a laxative effect. 8. Miscellaneous: You should measure your stoma weekly for the first month, then every other week for the second month. (This is when the greatest shrinkage of your stoma occurs.) Measure monthly thereafter. The skin barrier should fit exactly around the stoma or not greater than 1/8 larger. Always carry an extra clamp and skin barrier/pouch with you. Pt with Ileostomy/Colostomy When to call your screw down/ MD Change in Color: The stoma should always be pink or red in color. Should the color change to white,blue or black, medical notification is required. Bleeding: It is common and normal for the stoma to bleed minimally during gentle washing. Blood found in the pouch requires medical notification. Obstruction (ileostomies only): This situation, moist common with ileostomies, may be due to undigested or improperly chewed foods. Signs and symptoms include, no stool eliminated into the pouch for 6-12hrs, or excess amounts of watery diarrhea, abdominal pain or nausea or vomiting. If swelling of the stoma occurs, a large disposable pouch should be applied. Notify your technical lead or MD. Prolapse: The term implies that the stoma now extends further from the skin surface than it did at discharge from the hospital. An increase of one inch or more requires medical notification. Pain mayor may not accompany a prolapse. Retraction: This term implies that the bowel has slightly fallen back into the abdominal cavity. Itmay become flush with or recessed below the skin. A good seal with the pouch is difficult. Herniation: This term implies that the muscular area in which the stoma is sewn has lost its tone and the entire area, including skin and surrounding stoma now protrudes beyond the normal skin surface. Irritated Skin: Irritated skin can quickly worsen to a difficult to manage situation. Treat irritated skin as you have been taught. If it has not cleared up after one week call your ostomy nurse. Leaky Pouch: If you are having to change the pouch every other day or more frequently due to leakage it is reasonable for you to give your Ostomy Nurse a call. General Instructions None Provider Contact Information: CALL THE GENERAL SURGERY CLINIC DURING WORKING HOURS AT , OR CALL AFTER CLINIC HOURS, WEEKENDS AND HOLIDAYS: ASK FOR THE SURGERY RESIDENT MASTER SHEET CLERK Signed: ARIANNA BEATTY MD 03/30/2013 * Plan of Care - Hortencia Storey - 03/29/2013 12:01 PM EDT Problem: Pain, Acute (Adult, Obstetric) Intervention: Acute Pain: Signs and Symptoms D: Started pt on IV potassium chloride at 0900. At 1000 pt complained of severe sharp pain shootingup his arm. Rated his pain as a 7 A: Stopped infusing both the potassium and the primary line. In 10 minutes we restarted primary line and had doctor switch IV potassium to PO. We bled the tubing to remove the excess potassium and flushed the line. R: Patient reported that pain disappeared * Med Student Progress Note - Alejandra Johnston - 03/29/2013 7:23 AM EDT Patient ID: [id number] male with chronic ulcerative colitis s/p total colectomy with ileostomy, POD 6 24-hour events: Mr. Argueta began taking clear liquids by mouth Subjective: Mr. Argueta reports that he is tolerating clear liquids (water, apple juice, broth) well. He no longer feels nauseous and his pain continues to be well-controlled. Inpatient Medications: Scheduled Meds: ??? methylPREDNISolone sodium succinate (PF) 20 mg Intravenous Daily ??? [DISCONTINUED] methylPREDNISolone sodium succinate (PF) 20 mg Intravenous BID ??? lisinopril 10 mg Oral Daily ??? esomeprazole 40 mg Oral Daily Or ??? esomeprazole 40 mg Intravenous Daily ??? metoprolol 5 mg Intravenous Q6H ??? PARoxetine 40 mg Oral QAM ??? fluticasone-salmeterol 2 puff Inhalation Q12H CHRISTIANO ??? sodium chloride 0.9 % 10 mL Intravenous Q8H CHRISTIANO ??? heparin (porcine) 5,000 Units Subcutaneous Q12H CHRISTIANO Continuous Infusions: ??? dextrose 5% and sodium chloride 0.45% 100 mL/hr (03/28/13 1767) ??? HYDROmorphone ??? PM TECHNICIAN nieves PRN Meds:calcium carbonate, nalOXone, albuterol, prochlorperazine, nalOXone, ondansetron, ondansetron Vitals: Last value Range last 24 hrs Temperature Temp: 36.6 ??C (97.9 ??F) Temp: [36.6 ??C (97.9 ??F)-37 ??C (98.6 ??F)] Heart Rate Heart Rate: 84 Heart Rate: [65-87] Blood Pressure BP: 98/59 mmHg BP: (98-125)/(59-83) Respiratory Rate Resp: 18 Resp: [16-18] SpO2 SpO2: 97 % SpO2: [94 %-98 %] I/O: I/O last 3 completed shifts: In: 4216 [P.O.:740; I.V.:3476] Out: 3770 [Urine:1984; Stool:1785] I/O this shift: In: 743 [P.O.:120; I.V.:566; IV Piggyback:57] Out: 300 [Stool:300] Patient Vitals for the past 168 hrs: Weight 03/29/13 0517 83.5 kg (184 lb 1.4 oz) 03/28/13 0647 84 kg (185 lb 3 oz) 03/27/13 0403 84.6 kg (186 lb 8.2 oz) 03/24/13 0345 90.6 kg (199 lb 11.8 oz) 03/23/13 0919 90.719 kg (200 lb) Physical Exam: Gen: alert, conversant, laying in bed comfortably, in NAAD HEENT: NC/AT, conjunctivae anicteric, CV: RRR, no murmur, peripheral pulses 2+ RESP: breathing comfortably, anterior lung john clear to auscultation ABD: soft, non-tender to gentle palpation, BS present surgical incision healing well with mild erythema on borders most prominent at superior edge of incision, has not expanded past previously demarcated borders, EXT: warm, no evidence of cyanosis or edema Labs: Recent Labs Basename 03/27/13 1105 WBC 13.7* RBC 4.75 HGB 14.2 HCT 41.3 MCV 86.9 MCH 29.9 MCHC 34.4 PLATELET 314 RDWCV 13.6 Recent Labs Basename 03/29/13 0644 03/27/13 1105 03/26/13 1052 NA 133* 135 134* K 3.5 3.7 4.2 CL 99 99 98 CO2 23 22 22 BUN 18 29* 24* CREATININE 0.91 0.99 0.99 Assessment: 43 yo male s/p colectomy with ileostomy, POD 6 who has made progress toward recovery, particularly with his return of bowel function this weekend. Plan: NEURO: pain has been well controlled with Hydromorphone 2mg every 4 hours PRN CV: good heart rate control and blood pressure control with metoprolol and lisinopril PULM: no issues at this time, continue Advair BID GI/FEN:His ostomy output is high at ~1700ml over the last three shifts. Encourage PO intake and advance diet as tolerated. Continue IV hydration with 100ml/hr of D5 1/2NS to keep up with ostomy output. Being Prednisone taper. : good urine output, voiding without assistance HEME: no issues at this time ID:monitor WBC with CBC //Ppx: DVT: subcutaneous heparin Disposition: patient can return home once he can tolerate a regular diet and ostomy output is less than ~1,200ml/day * Plan of Care - Niya Metz RN - 03/29/2013 5:54 AM EDT Problem: Pain, Acute (Adult, Obstetric) Goal: Acute Pain: Acceptable Pain Control/Comfort Level - Pain, Acute (Adult, Obstetric) Outcome: Therapy, goal partially met Pt. Reporting pain of 4-6/10 as documented on doc flowsheet. Pt. Reporting good relief with dilaudid recreation programmer. Pt. Encouraged to let RN know if experiencing changes in pain. Will continue to monitor. Problem: Trauma/Injury Risk (Adult, Obstetric) Goal: Trauma/Injury Risk: Absence of Trauma/Injury/Falls Outcome: Absent and monitoring Patient scored at low risk to fall. Please see fall risk assessment for score and interventions. Call argueta within reach. Pt. Encouraged to ring for assistance prior to getting out of bed. Will continue to monitor. Problem: Skin Integrity Impairment, Risk/Actual (Adult, Obstetric) Goal: Skin Integrity Impairment, Risk/Actual: Skin Integrity/Wound Healing Outcome: Absent and monitoring Pt's skin free from pressure ulcers. Please see Gilmer assessment score for documentation and interventions. Pt encouraged to ambulate and change positions frequently. Will continue to monitor. * Plan of Care - Karlee Blanco RN - 03/28/2013 2:24 PM EDT Problem: Pain, Acute (Adult, Obstetric) Goal: Acute Pain: Acceptable Pain Control/Comfort Level - Pain, Acute (Adult, Obstetric) Patient using PM TECHNICIAN appropriately, denies need for additional pain medication. Problem: Skin Integrity Impairment, Risk/Actual (Adult, Obstetric) Goal: Skin Integrity Impairment, Risk/Actual: Skin Integrity/Wound Healing Patient ambulating independently with steady gait. * Plan of Care - Niya Metz RN - 03/28/2013 4:40 AM EDT Problem: Pain, Acute (Adult, Obstetric) Goal: Acute Pain: Acceptable Pain Control/Comfort Level - Pain, Acute (Adult, Obstetric) Outcome: Therapy, goal partially met Pt. Reporting pain of 4/10 as documented on doc flowsheet. Pt. Reporting good relief with dilaudid recreation programmer. Pt. Encouraged to let RN know if experiencing changes in pain. Will continue to monitor. Problem: Trauma/Injury Risk (Adult, Obstetric) Goal: Trauma/Injury Risk: Absence of Trauma/Injury/Falls Outcome: Absent and monitoring Patient scored at low risk to fall. Please see fall risk assessment for score and interventions. Call argueta within reach. Pt. Encouraged to ring for assistance prior to getting out of bed. Will continue to monitor. Problem: Skin Integrity Impairment, Risk/Actual (Adult, Obstetric) Goal: Skin Integrity Impairment, Risk/Actual: Skin Integrity/Wound Healing Outcome: Absent and monitoring Pt's skin free from pressure ulcers. Please see Gilmer assessment score for documentation and interventions. Pt encouraged to ambulate and change positions frequently. Will continue to monitor. * Plan of Care - Niya Rogel - 03/27/2013 7:03 PM EDT Problem: Pain, Acute (Adult, Obstetric) Goal: Acute Pain: Acceptable Pain Control/Comfort Level - Pain, Acute (Adult, Obstetric) Outcome: Therapy, goal partially met Pt assessed for pain Q 4 H. Pt states good pain relief with Dilaudid PM TECHNICIAN. See doc flow sheets. Problem: Trauma/Injury Risk (Adult, Obstetric) Goal: Trauma/Injury Risk: Absence of Trauma/Injury/Falls Outcome: Absent and monitoring Pt free from falls/injuries. Pt using call argueta appropriately. Non skid slippers utilized. Lightingadjusted for safety. Items within reach. Please see doc flow sheets. Problem: Skin Integrity Impairment, Risk/Actual (Adult, Obstetric) Goal: Skin Integrity Impairment, Risk/Actual: Skin Integrity/Wound Healing Outcome: Therapy, goal partially met Skin over bony prominences intact. Pt turns independently. Maint fluids infusing. ML incision red. MD Muller aware. Margins marked with sharpie. Cont to monitor. * Plan of Care - Niya Metz RN - 03/27/2013 3:47 AM EDT Problem: Pain, Acute (Adult, Obstetric) Goal: Acute Pain: Acceptable Pain Control/Comfort Level - Pain, Acute (Adult, Obstetric) Outcome: Therapy, goal partially met Pt. Reporting pain of 4/10 as documented on doc flowsheet. Pt. Reporting good relief with dilaudid recreation programmer. Pt. Encouraged to let RN know if experiencing changes in pain. Will continue to monitor. Problem: Trauma/Injury Risk (Adult, Obstetric) Goal: Trauma/Injury Risk: Absence of Trauma/Injury/Falls Outcome: Absent and monitoring Please see fall risk assessment for score and interventions. Call argueta within reach. Pt. Encouragedto ring for assistance prior to getting out of bed. Will continue to monitor. Problem: Skin Integrity Impairment, Risk/Actual (Adult, Obstetric) Goal: Skin Integrity Impairment, Risk/Actual: Skin Integrity/Wound Healing Outcome: Absent and monitoring Pt's skin free from pressure ulcers. Please see Gilmer assessment score for documentation and interventions. Pt encouraged to ambulate and change positions frequently. Will continue to monitor. * Plan of Care - Janeth Warren RN - 03/26/2013 1:11 PM EDT Problem: Pain, Acute (Adult, Obstetric) Goal: Acute Pain: Acceptable Pain Control/Comfort Level - Pain, Acute (Adult, Obstetric) Patient states he has some abdominal cramping but denies actual pain; ostomy with good stool outputand flatus; ambulating in halls and up to chair; has PM TECHNICIAN and epideral for pain control; continue toassess q4hrs and prn. Problem: Trauma/Injury Risk (Adult, Obstetric) Goal: Trauma/Injury Risk: Absence of Trauma/Injury/Falls Oriented x4, call argueta within reach and is reliably calling for assistance; fall precautions active; bed/chair in low locked position; OOB independently with steady gait. Problem: Skin Integrity Impairment, Risk/Actual (Adult, Obstetric) Goal: Skin Integrity Impairment, Risk/Actual: Skin Integrity/Wound Healing Abdominal incision CHRIS, well approximated and without signs of infection; ostomy stoma pink, moist and viable; epideral site intact and dry; IV site patent. 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 Argueta remained nauseous and had an NG tube placed that drained about 200ml of yellow-green fluid. The NG tube was taken out shortly afterwards by patient request. Subjective: This morning Mr. Argueta remains very uncomfortable. He feels nauseous and has tried to vomit, but is unable to. His pain has been manageable, but reports using the PM TECHNICIAN more frequently overnight. Inpatient Medications: Scheduled Meds: ??? methylPREDNISolone sodium succinate (PF) 20 mg Intravenous Daily ??? [COMPLETED] metoprolol 5 mg Intravenous Once ??? esomeprazole 40 mg Oral Daily Or ??? esomeprazole 40 mg Intravenous Daily ??? metoprolol 5 mg Intravenous Q6H ??? [DISCONTINUED] esomeprazole 40 mg Oral Daily ??? [DISCONTINUED] methylPREDNISolone sodium succinate (PF) 20 mg Intravenous Q12H ??? PARoxetine 40 mg Oral QAM ??? fluticasone-salmeterol 2 puff Inhalation Q12H CHRISTIANO ??? sodium chloride 0.9 % 10 mL Intravenous Q8H CHRISTIANO ??? heparin (porcine) 5,000 Units Subcutaneous Q12H CHRISTIANO Continuous Infusions: ??? dextrose 5% and sodium chloride 0.45% 50 mL/hr (03/25/13 0830) ??? [DISCONTINUED] sodium chloride 0.9% 100 mL/hr (03/24/13 2337) ??? HYDROmorphone ??? PM TECHNICIAN nieves ??? BUpivacaine 0.125% in NS 14 mL/hr (03/25/132134) PRN Meds:calcium carbonate, nalOXone, albuterol, [COMPLETED] diphenhydrAMINE, prochlorperazine, nalOXone, ondansetron, ondansetron, [DISCONTINUED] ondansetron, [DISCONTINUED] ondansetron, [DISCONTINUED] ondansetron Vitals: Last value Range last 24 hrs Temperature Temp: 36.5 ??C (97.7 ??F) Temp: [36.5 ??C (97.7 ??F)-37.5 ??C (99.5 ??F)] Heart Rate Heart Rate: 97 Heart Rate: [93-119] Blood Pressure BP: 131/97 mmHg BP: (131-159)/(88-113) Respiratory Rate Resp: 18 Resp: [16-24] SpO2 SpO2: 98 % SpO2: [92 %-98 %] I/O: Intake/Output Summary (Last 24 hours) at 03/26/13 0540 Last data filed at 03/26/13 0443 Gross per 24 hour Intake 1695 ml Output 5525 ml Net -3830 ml Patient Vitals for the past 168 hrs: Weight 03/24/13 0345 90.6 kg (199 lb 11.8 oz) 03/23/13 0919 90.719 kg (200 lb) Physical Exam: Gen: alert, conversant, laying in bed, visibly uncomfortable, CV: RRR without murmurs, peripheral pulses 2+ RESP: breathing comfortably, anterior lung john clear to auscultation ABD: mildly distended, ileostomy in place, abdominal incision is no longer covered in dressing, wound appears to be clean, dry and intact : pope catheter in place EXT: warm, no evidence of edema or cyanosis Labs: Recent Labs Basename 03/25/13 0509 03/24/13 0612 03/23/13 1715 WBC 11.6* -- -- RBC 3.79* -- -- HGB 11.0* 12.7* 13.4* HCT 33.1* 38.4* 40.6 MCV 87.3 -- -- MCH 29.0 -- -- MCHC 33.2 -- -- PLATELET 216 -- -- RDWCV 13.7 -- -- Recent Labs Basename 03/25/13 0509 03/24/13 0612 03/23/13 1715 NA 136 -- -- K 4.0 4.6 4.2 CL 98 -- -- CO2 27 -- -- BUN 13 -- -- CREATININE 0.88 -- -- Assessment: 43yo male on POD 3 after colectomy with ileostomy who is likely experiencing ileus of his small bowel which is causing his discomfort. This is common after abdominal surgery and may be exacerbated by his narcotic pain medication. UpToDate cites that up to 15% of patients undergoing bowel resection experience ileus and symptoms usually last for 3-5 days. Mr. Argueta is on POD 3, so he is still within the normal range and hopefully his bowel function will return within the next 1-2 days. Plan: NEURO: pain seems to be well-controlled on current regimen of PM TECHNICIAN and epidural, may consider using NSAIDs instead of opioids to help with ileus CV: beta blockade has been controlling his heart rate well, continue 5mg metoprolol Q6H PULM: no issues at this time GI/FEN: NPO until bowel function returns, if patient starts to vomit place NG tube, continue to encourage ambulation /FEK: continue maintenance IV fluids, 50 ml/hr D5 1/2 NS HEME: no issues at this time //Ppx: DVT: subcutaneous heparin Disposition: Mr. Argueta should remain in the hospital until he is able to take food by mouth comfortably, likely 2-3 more days. Sources: Susie Garibay. Postoperative Ileus. TrackIF. * Plan of Care - Lauren Clarke RN - 03/26/2013 1:48 AM EDT Problem: Pain, Acute (Adult, Obstetric) Goal: Acute Pain: Acceptable Pain Control/Comfort Level - Pain, Acute (Adult, Obstetric) Outcome: Present (see interventions, notes) Patient reports minimal pain, using PM TECHNICIAN, minimal coverage with Epidural. Will continue to monitor Problem: Trauma/Injury Risk (Adult, Obstetric) Goal: Trauma/Injury Risk: Absence of Trauma/Injury/Falls Outcome: Present (see interventions, notes) Patient alert and orientated call argueta within reach, patient ringing appropriately * Plan of Care - Janeth Warren RN - 03/25/2013 1:37 PM EDT Problem: Pain, Acute (Adult, Obstetric) Goal: Acute Pain: Acceptable Pain Control/Comfort Level - Pain, Acute (Adult, Obstetric) Patient with some midline abdominal incisional discomfort; has epideral and is using PM TECHNICIAN appropriately to maintain tolerable level of comfort; continue to assess q4hrs and prn. Problem: Trauma/Injury Risk (Adult, Obstetric) Goal: Trauma/Injury Risk: Absence of Trauma/Injury/Falls Oriented x4, call argueta within reach and is reliably calling for assistance; fall precautions active; bed/chair in low locked position; OOB independently with steady gait. Problem: Skin Integrity Impairment, Risk/Actual (Adult, Obstetric) Goal: Skin Integrity Impairment, Risk/Actual: Skin Integrity/Wound Healing Midline incision clean, dry and intact; ostomy stoma round, pink, moist and viable; pope secured to leg; IV site patent; epideral site intact without noted drainage or leakage; confirms tolerable level of comfort. 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 24-hour events: Mr. Argueta has remained tachycardic and overnight he had one episode of a rate in [id number]. CBC was ordered and was within normal limits. EKG showed sinus tachycardia. Subjective: This morning Mr. Argueta reports that he has some pain, but it is manageable. He had been walking several times yesterday without problem. He has been experiencing more acid reflux. He states that he is getting more concerned about his elevated heart rate. Inpatient Medications: Scheduled Meds: ??? methylPREDNISolone sodium succinate (PF) 20 mg Intravenous Q12H ??? [COMPLETED] bolus IV fluid Intravenous Once ??? [COMPLETED] ceFAZolin 2 g Intravenous Q8H ??? PARoxetine 40 mg Oral QAM ??? fluticasone-salmeterol 2 puff Inhalation Q12H CHRISTIANO ??? sodium chloride 0.9 % 10 mL Intravenous Q8H CHRISTIANO ??? heparin (porcine) 5,000 Units Subcutaneous Q12H CHRISTIANO ??? [DISCONTINUED] methylPREDNISolone sodium succinate (PF) 20 mg Intravenous Q8H Continuous Infusions: ??? sodium chloride 0.9% 100 mL/hr (03/24/13 2337) ??? HYDROmorphone ??? PM TECHNICIAN nieves ??? BUpivacaine 0.125% in NS 14 mL/hr (03/25/13 3207) ??? [DISCONTINUED] sodium chloride 0.9% with potassium chloride 20 mEq Stopped (03/24/13 1417) PRN Meds:nalOXone, ondansetron, ondansetron, albuterol, diphenhydrAMINE, prochlorperazine, ondansetron, nalOXone, ondansetron, ondansetron Vitals: Last value Range last 24 hrs Temperature Temp: 37 ??C (98.6 ??F) Temp: [36.8 ??C (98.2 ??F)-37.1 ??C (98.8 ??F)] Heart Rate Heart Rate: 115 Heart Rate: [98-122] Blood Pressure BP: 154/99 mmHg BP: (118-154)/(77-100) Respiratory Rate Resp: 16 Resp: [16-19] SpO2 SpO2: 95 % SpO2: [93 %-95 %] I/O: Intake/Output Summary (Last 24 hours) at 03/25/13 0123 Last data filed at 03/25/13 0500 Gross per 24 hour Intake 2673.8 ml Output 3720 ml Net -1046.2 ml Patient Vitals for the past 168 hrs: Weight 03/24/13 0345 90.6 kg (199 lb 11.8 oz) 03/23/13 0919 90.719 kg (200 lb) Physical Exam: Gen: alert, conversant, laying in bed, in NAD HEENT: NC/AT, EOMI, pillow behind head soaked with sweat CV: RRR, tachycardic, peripheral pulses 2+ RESP: breathing comfortably, lungs CTAB ABD: distended, midline surgical incision is bandaged : Pope catheter in place EXT: no edema or cyanosis noted, SKIN: warm and well-perfused, no evidence of rash Labs: Recent Labs Basename 03/25/13 0509 03/24/13 0603/23/13 1715 WBC 11.6* -- -- RBC 3.79* -- -- HGB 11.0* 12.7* 13.4* HCT 33.1* 38.4* 40.6 MCV 87.3 -- -- MCH 29.0 -- -- MCHC 33.2 -- -- PLATELET 216 -- -- RDWCV 13.7 -- -- Recent Labs Basename 03/24/13 0612 03/23/13 1715 NA -- -- K 4.6 4.2 CL -- -- CO2 -- -- BUN -- -- CREATININE -- -- Assessment: This is a 43 yo male on POD 2 after colectomy with ileostomy who is recovering well, although remains tachycardic and at times hypertensive. This is likely secondary to his response to surgery, but his history of atrial fibrillation (corrected by ablation) makes it also possible that heis having a recurrence. Plan: NEURO: continue epidural and PM TECHNICIAN, pain has been well-controlled CV: consider starting beta blockade to achieve rate control PULM: no issues at this time GI/FEN: remain NPO until ostomy output increases : urine output has been good, keep Pope catheter in until epidural is taken out HEME: no issues at this time //Ppx: DVT: sub cutaneous heparin, encourage ambulation Disposition: patient needs to be able to take meals by mouth with good ostomy output and be able tolerate PO pain medication before discharge. It will likely be at least 3-4 more days. * Plan of Care - Alexei Torres RN - 03/25/2013 3:18 AM EDT Problem: Pain, Acute (Adult, Obstetric) Goal: Acute Pain: Acceptable Pain Control/Comfort Level - Pain, Acute (Adult, Obstetric) Outcome: Absent and monitoring Pt has cosistently denied pain this night--PM TECHNICIAN appears adequate for pain control-- * Plan of Care - Lauren Clarke RN - 03/24/2013 4:47 PM EDT Problem: Pain, Acute (Adult, Obstetric) Goal: Acute Pain: Acceptable Pain Control/Comfort Level - Pain, Acute (Adult, Obstetric) Outcome: Present (see interventions, notes) Patient reports increase levels of pain, pain team notified and adjustments made. Patient reports improvement with pain levels Vebalizes and demonstrates understanding of PM TECHNICIAN Problem: Trauma/Injury Risk (Adult, Obstetric) Goal: Trauma/Injury Risk: Absence of Trauma/Injury/Falls Outcome: Present (see interventions, notes) Call argueta within reach, patient alert and orientated and ringing argueta appropriately Problem: Skin Integrity Impairment, Risk/Actual (Adult, Obstetric) Goal: Skin Integrity Impairment, Risk/Actual: Skin Integrity/Wound Healing Outcome: Present (see interventions, notes) IV sites dry and intact with no signs of infection or discomfort * Plan of Care - Uday Kenyon - 03/24/2013 3:15 PM EDT Problem: Skin Integrity Impairment, Risk/Actual (Adult, Obstetric) Intervention: Skin Integrity Impairment, Risk/Actual: Signs and Symptoms D- patient has been in bed for the morning and expresses desire to move and walk through out the day. Skin appears to be warm dry and intact. Midline incision looks approximated and pain is noted at the site. A- patient has walked 3x throughout the day, complaining a agitation of wound when walking but usespain medication form PM TECHNICIAN effectively. R- Patient is able to move around the unit ad/jaya. Sacral area is clean dry and intact. * Plan of Care - Uday Kenyon - 03/24/2013 3:11 PM EDT Problem: Pain, Acute (Adult, Obstetric) Intervention: Acute Pain: Signs and Symptoms D-pt complains of 8/10 pain in lower abdomen and along the midline incision site radiating outward to both sides. A-pain management came by to assess, epidural was moved back to improve coverage and use of PM TECHNICIAN is encouraged, warm pack is ordered and administered. R-Patient still complains of pain at incision site and rates pain at 6/10. * Miscellaneous - Provider, Scanning - 03/24/2013 3:04 PM EDT * Initial Assessments - Martha Heller, PT - 03/24/2013 10:55 AM EDT Physical Therapy Evaluation Patient profile: Danya Argueta is a 43 y.o. male admitted to [facility] on 03/23/2013 by Pillo Suresh MD with UC. Patient was taken to the OR on 03/23/2013 for total colectomy with ileostomy. Patient is currently residing on [facility]. PT referral received. PMH: Past Surgical History Procedure Date ??? Colonoscopy, biopsy 12/24/2011 COLONOSCOPY FLEXIBLE, WITH BX performed by ANDREW BRADLEY at [facility] ??? Colonoscopy, diagnostic 01/11/2013 COLONOSCOPY, DIAGNOSTIC performed by Pillo Avina MD at [facility] ??? Colonoscopy, biopsy 01/11/2013 COLONOSCOPY FLEXIBLE, WITH BX performed by Pillo Avina MD at [facility] ??? Removal colon/ileostomy 03/23/2013 @COLECTOMY, TOTAL WITH ILEOSTOMY performed by Pillo Avina MD at [facility] Social History: Patient lives in one story home with his . [address] with unilateral railing. Patient is currently unemployed and on disability. Patient reports independence at baseline with no use of AD. Patient's is in good health and able to assist as necessary. Precautions/Special Considerations: high risk for skin breakdown; high risk for falls; ambulate in hallway; full code; NPO Subjective: ???I feel like I can do everything, but I have pain.?? Objective: Patient seen for evaluation on this date. Chart reviewed. Spoke with RN. Patient is found supine in bed, HOB elevated 30 degrees agreeable to physical therapy. ?? Pain: 11/09, 02/09 with bed mobility. C/o pain in abdomen at incision. ?? Vital Signs: ?? Sp02: 94% on RA ?? HR: 112 bpm ?? Mental Status/Communication: AA+Ox4 ?? Musculoskeletal: ?? ROM: WFL ?? Strength: ?? B hip flexion: >3/5 ?? B knee extension: >3/5 ?? B dorsiflexion: >3/5 ?? Sensation: not formally assessed ?? Bed Mobility: ?? Supine to Sit: supervision, modified side lying technique, min cues for technique, HOB flat, (-)use of bed rails, min increased time, min increased pain. ?? Sit to Supine: supervision, modified side lying technique, min cues for technique, HOB flat, (-)use of bed rails, min increased time. ?? Transfers: ?? Sit to Stand: modified independent, B UE for push off, min increased time ?? Stand to Sit: modified independent, B UE on armrest for support, controlled descent. ?? Bed <>Chair: stand step pivot transfer with supervision. Assistance with line and tube management. ?? Gait: ?? Patient ambulate 300 feet with supervision. Step through pattern, decreased B step and stride length. Assistance with line and tube management. ?? Pt. to utilize supervision for ambulation with nursing. ?? Stairs: ?? Patient ascends and descends 4 stairs with supervision. (-) use of railing. Step through pattern. Assistance with line and tube management. ?? Balance: ?? Sitting: Good through min excursions ?? Standing: ?? Static: Fair (+) ?? Dynamic: Fair (+) ?? Education: ?? The patient have been educated on Bed mobility, Transfers, Stairs, Safety , Gait , Activity pacing/Energy conservation, Role of therapy, Balance and Discharge planning and verbalizes understanding. Patient status, treatment, and mobility recommendations discussed with nursing. Assessment: Patient presents with impaired balance, decreased endurance, decreased activity tolerance, and increased pain. Patient was at a supervised level for bed mobility on this date due to cueing required for sidelying vs. long sit technique, do not anticipate any problems. Stair ambulation limited by lines and tubes, do not anticipate any problems. Encourage ambulation with nursing, recommend 4 walks/day. Patient is functionally safe for discharge home with family support once medically stable and cleared from all other disciplines. Do not anticipate need for follow up PT services. PT will continue to monitor patient while in the hospital and intervene when and if appropriate. Plan: Patient is functionally safe for discharge home with family support once medically stable. Patient agrees with plan as stated above. Equipment needs: none at this time. Discharge Recommendations: Home with family support Total time spent with patient: 32 minutes Total timed interventions: 0 minutes Thank you for the physical therapy consult. Abigail Starks 03/24/2013 Pager: [phone] Physical Therapy Student Rehabilitation Department Chart reviewed. I was present throughout the above physical therapy session. I have reviewed and agree with the above documentation and plan. Martha Heller PT Pager #: [phone] * Plan of Care - Lauren Blas RN - 03/24/2013 6:45 AM EDT Problem: Pain, Acute (Adult, Obstetric) Goal: Acute Pain: Acceptable Pain Control/Comfort Level - Pain, Acute (Adult, Obstetric) Outcome: Therapy, goal partially met Pain tolerable 6/10 with Dilaudid PM TECHNICIAN and epidural. Will continue to monitor for ineffective pain control. Problem: Trauma/Injury Risk (Adult, Obstetric) Goal: Trauma/Injury Risk: Absence of Trauma/Injury/Falls Outcome: Absent and monitoring Pt remains free from falls/injury. Call argueta in reach at all times, pt is using appropriately. Problem: Skin Integrity Impairment, Risk/Actual (Adult, Obstetric) Goal: Skin Integrity Impairment, Risk/Actual: Skin Integrity/Wound Healing Outcome: Present (see interventions, notes) Surgical sites WNL as charted in flowsheet. Skin over bony prominences/surrounding devices intact. See doc flowsheet for additional interventions. * Op Note - Pillo Avina MD - 03/23/2013 5:19 PM EDT Preoperative Diagnosis: Chronic ulcerative colitis. Postoperative Diagnosis: The same. Procedure: Total abdominal colectomy with ileostomy and Royal closure of the rectum. Surgeon: Dr. Avina. Hand Frame Surgical Elastic Knitter: Dr. Cisneros. Anesthesia: General. Indications: The patient is a 43-year-old male with a history of ulcerative colitis dating from age 18. Patient's disease has become refractory to medical management aside from treatment with high-dose steroids. Endoscopic examination has confirmed the presence of pancolitis. Recommendation has been made to proceed with proctocolectomy and ileal pouch-anal anastomosis. Patient's prednisone has been tapered to a dose of 15 mg per day. As part of the requirement for proceeding with ileal pouch-anal anastomosis, patient had also been asked to pursue a weight-reduction program. He has been unsuccessful in achieving any weight reduction. Patient has a very protuberant abdomen, and there is concern that intraabdominal adiposity will interfere with creating a tension-free anastomosis for the ileal pouch-anal anastomosis. Patient is aware that if findings at the time of surgery today do not indicate successful possibility for performing the ileal pouch-anal anastomosis then the procedure will be limited to a total abdominal colectomy. After the patient has recovered and has been successful with weight reduction, we would then proceed with proctectomy and ileal pouch-anal anastomosis. He is in agreement with that plan. Procedure: Following induction of general anesthesia, the patient was placed in [facility]. The abdomen and perineum were prepped and draped in the usual fashion. Pope catheter was inserted using aseptic technique. Midline incision was performed. Exploration of the abdomen revealed a very bulky, fatty omentum. The liver was normal to palpation. The gallbladder was soft and thin walled without palpable stones. The foramen of [place] was patent. There was no mass in the jos hepatis. Stomach, duodenum, and pancreas were normal to palpation. There was no aortic aneurysm. Small intestine was run from the ligament of Treitz to the ileocecal valve and was normal throughout its course. Examination of the intraabdominal colon revealed no abnormalities on the serosal surface. The patient was noted to have a markedly fatty mesentery to both the small and large intestine. He was also noted to have a very narrow pelvis. The cecum and terminal ileum were then retracted toward the left upper quadrant. The fascial fusion plane in the right gutter was incised. This incision was extended cephalad mobilizing the ascending colon on its mesentery. The incision was also carried around the root of the mesentery to the terminal ileum. The mesoappendix was dissected off of the mesentery to the terminal ileum. Attention was then returned to the hepatic flexure. The hepatocolic attachments were divided with cautery. The right lateral edge of the gastrocolic omentum was divided between clamps and ligated with 2-0 Vicryl ties. The omentum was then retracted cephalad. With cautery dissection, the omentum was dissected free of the transverse colon. This dissection was surprisingly tedious due to the very thick gastrocolic omentum. Dissection was carried to the level of the distal transverse colon. Attention was then returned to the right lower quadrant. Site for proximal transection of the intestine at the level of the ileocecal valve was selected and a mesenteric window created at this point. The mesentery to the terminal ileum and ascending colon was then scored, divided between clamps, and ligated with 2-0 Vicryl ties. The mesenteric dissection was oriented to pass adjacent to the cecal wall in hopes of preserving the ileocolic arcade. Dissection was difficult again due to the large amount of fat in the small-bowel mesentery. The terminal portion of the ileocolic arcade was divided in order to achieve satisfactory hemostasis. The remaining mesentery to the ascending colon was divided with Bovie cautery. The terminal ileum was then divided with a MANDA stapler. The transverse mesocolon was divided between clamps and ligated with 2-0 Vicryl ties. Dissection progressed distally to the distal third of the transverse colon. Attention was then turned to the descending colon. The descending colon was retracted medially and the fascial fusion plane in the left gutter incised. This incision was extended cephalad to the level of the splenic flexure, mobilizing the descending colon on its mesentery. While maintaining traction on the distal transverse colon, the remaining omentum was dissected free of the distal transverse colon. Again, while maintaining traction on the transverse colon and descending colon, the retroperitoneal attachments to the splenic flexure were divided with cautery mobilizing the flexure to the midline. The remaining mesentery to the distal transverse colon and descending colon was then scored, divided between clamps, and ligated with 2-0 Vicryl ties. Sigmoid colon was then retracted medially and some congenital adhesions in the left paracolic gutter divided. Mesentery to the sigmoid colon was divided between clamps and ligated with 2-0 Vicryl ties. This mesenteric dissection was carried closer to the bowel wall in order to avoid having to enter the left retroperitoneum. Attention was then turned to the terminal ileum. The apex of the planned ileoanal pouch was selected. This was then placed on traction on the anterior abdominal wall. I could mobilize the apex of the planned pouch two fingerbreadths below the symphysis pubis. I was concerned that we might find there was insufficient length in the pouch to reach the anal canal without creating a mesenteric window and that the loss of the ileocolic arcade might compromise perfusion to the pouch. Decision was therefore made to limit the procedure to total colectomy and to bring the patient back for the ileoanal pouch procedure after he had achieved satisfactory weight reduction. Site for distal transection of the colon in the distal sigmoid segment just above the level of the sacral promontory was selected and a mesenteric window created at this point. The remaining sigmoid mesentery was then scored, divided between clamps, and ligated with 2-0 Vicryl ties. The rectum had previously been decompressed with a 24-Syriac Malecot catheter placed in the rectum. A TA-60 stapler was placed across the colon at the planned site for transection and fired. A Lior clamp was placed proximal to this and the bowel divided. The specimen was removed from the table. The abdomen was irrigated with saline and inspected for hemostasis, which was judged to be satisfactory. The site for the ileostomy in the right lower quadrant had been marked preoperatively. This was grasped with a Lior clamp. While maintaining medial traction on the right abdominal wall, a circular defect of skin and subcutaneous tissue was excised. The rectus fascia was incised in cruciate fashion. The rectus muscle was split and the posterior sheath and peritoneum incised. The defect in the abdominal wall was dilated to accommodate two fingerbreadths. The divided end of the terminal ileum was then delivered through this defect in the abdominal wall and secured with a Madeleine clamp. The peritoneum and fascia along the midline incision were approximated as a single layer with a running double-stranded #1 PDS suture. Wound was irrigated with a neomycin/polymyxin/bacitracin solution. Skin margins were approximated with drake. Midline incision was covered with a sterile towel. The stapled closure to the terminal ileum was excised. The terminal ileum was intussuscepted and the ileostomy matured with a series of interrupted 3-0 chromic sutures. An appliance was placed over the stoma. Patient tolerated the procedure well. He was extubated in the Operating Room and transferred to the Recovery Room in satisfactory condition. Sponge and needle counts were correct. Estimated Blood Loss: 200 mL. * OR Attestation - Pillo Avina MD - 03/23/2013 5:18 PM EDT Attestation:Attestation: I was present and I participated during the entire procedure (does not need to include opening and closing). PILLO AVINA Case Date: 03/23/2013 PILLO AVINA MD 03/23/2013 * Brief Op Note - Merlyn Cisneros MD - 03/23/2013 5:02 PM EDT Brief Operative Note Patient Name: Danya Argueta Jr. : [id number] MR#: [id number] Case Date: 03/23/2013 Surgeon: Surgeon(s) and Role: * Pillo Avina MD - Primary * Merlyn Cisenros MD - Resident-Surgeon Chief Preoperative diagnosis: DAI Postoperative diagnosis: DAI Procedure(s): @COLECTOMY, TOTAL WITH ILEOSTOMY Anesthesia: General Findings: Thickened, friable mesentery throughout; difficult pelvic visualization given habitus, with inadequate SB mobility to allow IPAA; proceeded with total abdominal colectomy with end ileostomy Complications: None Fluids: 4.0L Estimated Blood Loss: 300cc Urine: 700cc Drains: None Disposition: awakened from anesthesia, extubated and taken to the recovery room in a stable condition, having suffered no apparent untoward event. Condition: doing well without problems (Please see the Surgical Encounter Summary for any Implant and Specimen details pertinent to this patient.) * Miscellaneous - Provider, Scanning - 03/23/2013 2:14 PM EDT * Emmanuelaneous - Provider, Scanning - 03/23/2013 2:08 PM EDT documented in this encounter Plan of Treatment Pending Results Name Type Priority Associated Diagnoses Date /Time XR Fluoro OR c-arm storage only Imaging Routine 03/23/2013 10:53 AM EDT Scheduled Orders Name Type Priority Associated Diagnoses Orde r Schedule XR Fluoro OR c-arm storage only Imaging Routine Once PRN (for Ra diant use) for 1 Occurrences starting 03/23/2013 until 03/23/2013 documented as of this encounter Procedures Procedure Name Priority Date/Time Associated Diagnosis Comments POTASSIUM Routine 03/30/2013 6:05 AM EDT URINALYSIS WITH REFLEX CULTURE Routine 03/29/2013 2:54 PM EDT DIFFERENTIAL, AUTOMATED Routine 03/29/2013 9:22 AM EDT CBC (WITH DIFF) Routine 03/29/2013 9:22 AM EDT BASIC METABOLIC PANEL (NON-FASTING) STAT 03/29/2013 6:44 AM EDT HEMOGRAM Routine 03/27/2013 11:05 AM EDT BASIC METABOLIC PANEL (NON-FASTING) Routine 03/27/2013 11:05 AM EDT BASIC METABOLIC PANEL (NON-FASTING) Routine 03/26/2013 10:52 AM EDT EKG 12-LEAD STAT 03/25/2013 1:09 PM EDT Atrial fibrillation HEMOGRAM STAT 03/25/2013 5:09 AM EDT BASIC METABOLIC PANEL (NON-FASTING) STAT 03/25/2013 5:09 AM EDT EKG 12-LEAD STAT 03/25/2013 4:48 AM EDT Atrial fibrillation EKG 12-LEAD Routine 03/24/2013 4:10 PM EDT Atrial fibrillation HEMOGLOBIN AND HEMATOCRIT, BLOOD Routine 03/24/2013 6:12 AM EDT POTASSIUM Routine 03/24/2013 6:12 AM EDT HEMOGLOBIN AND HEMATOCRIT, BLOOD STAT 03/23/2013 5:15 PM EDT POTASSIUM STAT 03/23/2013 5:15 PM EDT BLOOD GAS 2 ARTERIAL Routine 03/23/2013 3:32 PM EDT SURGICAL PATHOLOGY REPORT Routine 03/23/2013 3:21 PM EDT SPECIMEN TO PATHOLOGY Routine 03/23/2013 3:21 PM EDT BLOOD GAS 2 ARTERIAL Routine 03/23/2013 12:58 PM EDT @COLECTOMY, TOTAL WITH ILEOSTOMY (WRVU 30.18) Yes 03/23/2013 10:48 AM EDT DAI documented in this encounter Results * Potassium (03/30/2013 6:05 AM EDT) Potassium 3.6 3.5 - 5.0 mmol/L CERNER MILLENNIUM Comment: Please note: ??Patients with WBC >100,000 may have falsely elevated Potassium levels. ??For accurate Potassium quantification in these patients send serum separator tube (gold top) for subsequent determinations. ??Contact the Clinical Chemistry Laboratory if there are any questions. Blood specimen (specimen) 03/30/2013 6:05 AM EDT 03/30/2013 6:10 AM EDT Narrative Resulting Agency Comment Spec In Lab Pillo Avina MD CHEMISTRY ORDERABLES Performing Organization Address [facility] Co de Phone Number CERNER MILLENNIUM * (ABNORMAL) Urinalysis with microscopic (03/29/2013 2:54 PM EDT) Glucose UA Negative Negative mg/dL CERNER MILLENNIUM Protein UA Trace(A) Neg mg/dL CERNER MILLENNIUM Bilirubin UA Negative Negative mg/dL CERNER MILLENNIUM Urobilinogen UA Normal mg/dL CERN ER MILLENNIUM pH UA 6.0 5.0 - 8.0 CERNER MILLENNIUM Blood UA Negative mg/dL CERNER MILLENNIUM Ketones UA Negative mg/dL CERNER MILLENNIUM Nitrite UA Negative CERNER MILLENNIUM Leukocytes UA Negative mcL CERNER MILLENNIUM Appearance UA Clear Clear CERNER MILLENNIUM Spec [place] UA 1.021 1.002 - 1.030 CERNER MILLENNIUM Color UA Yellow Yellow CERNER MILLENNIUM RBC UA 1 0 - 3 /HPF CERNER MILLENNIUM WBC UA 1 0 - 3 /HPF CERNER MILLENNIUM Squam Epith UA <1 <=4 /HPF CERNE R MILLENNIUM Urine specimen (specimen) 03/29/2013 2:54 PM EDT 03/29/2013 3:13 PM EDT Narrative Resulting Agency Comment Spec In Lab Pillo Avina MD URINE ORDERABLES Performing Organization Address [facility]/ZIP Co de Phone Number CERNER MILLENNIUM * (ABNORMAL) Differential, Automated (03/29/2013 9:22 AM EDT) Neutrophils % 62.9 34.0 - 71.0 % CERNER MILLENNIUM Neutr Abs (ANC) 7.46(H) 1.50 - 6.30 x10(3)/mc L CERNER MILLENNIUM Lymphocytes % 17.8(L) 19.0 - 53.0 % CERNER MILLENNIUM Lymphocytes Abs 2.1 1.0 - 3.6 x10(3)/mc L CERNER MILLENNIUM Monocytes % 12.2 4.0 - 13.0 % CERNER MILLENNIUM Monocyte Abs 1.4(H) 0.2 - 1.0 x10(3)/mc L CERNER MILLENNIUM Eosinophils % 5.2 0.0 - 7.0 % CERNER MILLENNIUM Eosinophils Abs 0.6(H) 0.0 - 0.5 x10(3)/mc L CERNER MILLENNIUM Basophils % 0.2 0.0 - 2.0 % CERNER MILLENNIUM Basophils Abs 0.0 0.0 - 0.2 x10(3)/mc L CERNER MILLENNIUM Immature Gran % 1.70(H) 0.00 - 0.66 % CERNER MILLENNIUM Comment: Immature granulocytes(IG's)percentage and absolute count will include metamyelocytes, myelocytes, and promyelocytes. Blood smears from CBCs yielding IG's will be scanned manually for concordance. If this scan disagrees with the automated IG or if promyelocytes are noted, a manual differential will be performed. Shari Gran Abs 0.20(H) 0.00 - 0.05 x10(3)/mc L CERNER MILLENNIUM Blood specimen (specimen) 03/29/2013 9:22 AM EDT 03/29/2013 9:55 AM EDT Pillo Avina MD HEMATOLOGY ORDERABLE S CERJAKE MANZANOENNIUM * (ABNORMAL) CBC (with Diff) (03/29/2013 9:22 AM EDT) WBC 11.8(H) 4.0 - 10.0 x10(3)/mcL CERNER MILLENNIUM RBC 4.60(L) 4.63 - 6.08 x10(6)/mcL CERNER MILLENNIUM Hemoglobin 13.4(L) 13.7 - 17.5 gm/dL CERNER MILLENNIUM Hematocrit 39.4(L) 40.0 - 51.0 % CERNER MILLENNIUM MCV 85.7 79.0 - 92.0 fL CERNER MILLENNIUM MCH 29.1 25.6 - 32.2 pg CERNER MILLENNIUM MCHC 34.0 32.0 - 36.5 gm/dL CERNER MILLENNIUM Platelets 321 145 - 370 x10(3)/mcL CERNER MILLENNIUM RDWSD 41.1 35.0 - 46.0 fL CERNER MILLENNIUM RDWCV 13.3 10.9 - 14.4 % CERNER MILLENNIUM MPV 9.9 9.0 - 12.0 fL CERNER MILLENNIUM Blood specimen (specimen) 03/29/2013 9:22 AM EDT 03/29/2013 9:55 AM EDT Narrative Resulting Agency Comment Spec In Lab Pillo Avina MD HEMATOLOGY ORDERABLE S CERNER MILLENNIUM * (ABNORMAL) Basic Metabolic Panel (non-fasting) (03/29/2013 6:44 AM EDT) [facility] Glucose Lvl 106 60 - 199 mg/dL CERNER MILLENNIUM Comment:Diabetes: >=200 mg/d L plus symptoms BUN 18 10 - 20 mg/dL CERNER MILLENNIUM Creatinine 0.91 0.80 - 1.50 mg/dL CERNER MILLENNIUM Comment: Please note that the pediatric reference intervals supplied above were not validated at [facility]. Results from pediatric patients should be interpreted [...] Narrative Resulting Agency Comment Spec In Lab Pillo Avina MD CHEMISTRY ORDERABLES CERNER MILLENNIUM * (ABNORMAL) Basic Metabolic Panel (non-fasting) (03/27/2013 11:05 AM EDT) [facility] Glucose Lvl 104 60 - 199 mg/dL CERNER MILLENNIUM Comment:Diabetes: >=200 mg/d L plus symptoms BUN 29(H) 10 - 20 mg/dL CERNER MILLENNIUM Creatinine 0.99 0.80 - 1.50 mg/dL CERNER MILLENNIUM Comment: Please note that the pediatric reference intervals supplied above were not validated at [facility]. Results from pediatric patients should be interpreted in conjunction to the patient's age, height and muscle mass. Sodium 135 135 - 145 mmol/L CERNER MILLENNIUM Potassium 3.7 3.5 - 5.0 mmol/L CERNER MILLENNIUM Comment: Please note: ??Patients with WBC >100,000 may have falsely elevated Potassium levels. ??For accurate Potassium quantification in these patients send serum separator tube (gold top) for subsequent determinations. ??Contact the Clinical Chemistry Laboratory if there are any questions. Chloride 99 98 - 107 mmol/L CERNER MILLENNIUM CO2 22 22 - 31 mmol/L CERNER MILLENNIUM Anion Gap 14 5 - 15 mmol/L CERNER MILLENNIUM Calcium 9.3 8.5 - 10.5 mg/dL CERNER MILLENNIUM Estimated [...] internet browser. http://www.nkdep.nih.gov/lab-evaluation.shtml http://www.kidney.org/professionals/ Blood specimen (specimen) 03/27/2013 11:05 AM EDT 03/27/2013 11:16 AM EDT Narrative Resulting Agency Comment Spec In Lab Plilo Avina MD CHEMISTRY ORDERABLES CERNER MILLENNIUM * (ABNORMAL) Hemogram (03/27/2013 11:05 AM EDT) WBC 13.7(H) 4.0 - 10.0 x10(3)/mcL CERNER MILLENNIUM RBC 4.75 4.63 - 6.08 x10(6)/mcL CERNER MILLENNIUM Hemoglobin 14.2 13.7 - 17.5 gm/dL CERNER MILLENNIUM Hematocrit 41.3 40.0 - 51.0 % CERNER MILLENNIUM MCV 86.9 79.0 - 92.0 fL CERNER MILLENNIUM MCH 29.9 25.6 - 32.2 pg CERNER MILLENNIUM MCHC 34.4 32.0 - 36.5 gm/dL CERNER MILLENNIUM Platelets 314 145 - 370 x10(3)/mcL CERNER MILLENNIUM RDWSD 43.2 35.0 - 46.0 fL CERNER MILLENNIUM RDWCV 13.6 10.9 - 14.4 % CERNER MILLENNIUM MPV 9.8 9.0 - 12.0 fL CERNER MILLENNIUM Blood specimen (specimen) 03/27/2013 11:05 AM EDT 03/27/2013 11:16 AM EDT Narrative Resulting Agency Comment Spec In Lab Pillo Avina MD HEMATOLOGY ORDERABLE S CERNER MILLENNIUM * (ABNORMAL) Basic Metabolic Panel (non-fasting) (03/26/2013 10:52 AM EDT) Glucose Lvl 145 60 - 199 mg/dL CERNER MILLENNIUM Comment:Diabetes: >=200 mg/d L plus symptoms BUN 24(H) 10 - 20 mg/dL CERNER MILLENNIUM Comment:result rechecked-DA Creatinine 0.99 0.80 - 1.50 mg/dL CERNER MILLENNIUM Comment: Please note that the pediatric reference intervals supplied above were not validated at [facility]. Results from pediatric patients should be interpreted in conjunction to the patient's age, height and muscle mass. Sodium 134(L) 135 - 145 mmol/L CERNER MILLENNIUM Potassium 4.2 3.5 - 5.0 mmol/L CERNER MILLENNIUM Comment: Please note: ??Patients with WBC >100,000 may have falsely elevated Potassium levels. ??For accurate Potassium quantification in these patients send serum separator tube (gold top) for subsequent determinations. ??Contact the Clinical Chemistry Laboratory if there are any questions. Chloride 98 98 - 107 mmol/L CERNER MILLENNIUM CO2 22 22 - 31 mmol/L CERNER MILLENNIUM Anion Gap 14 5 - 15 mmol/L CERNER MILLENNIUM Calcium 9.8 8.5 - 10.5 mg/dL CERNER MILLENNIUM Comment:result rechecked-DA Estimated GFR >60 >=60 CERNER MILLENNIUM Comment: [...] internet browser. http://www.nkdep.nih.gov/lab-evaluation.shtml http://www.kidney.org/professionals/ Blood specimen (specimen) 03/26/2013 10:52 AM EDT 03/26/2013 10:56 AM EDT Narrative Resulting Agency Comment Spec In Lab Pillo Avina MD CHEMISTRY ORDERABLES Performing Organization Address [facility] Co de Phone Number CERNER MILLENNIUM * EKG 12 Lead (03/25/2013 1:09 PM EDT) Ventricular rate 97 BPM MUSE SYSTEM Atrial Rate 97 BPM MUSE SYSTEM P-R Interval 132 ms MUSE SYSTEM QRS Duration 84 ms MUSE SYSTEM Q-T Interval 336 ms MUSE SYSTEM QTC Calculated (Bezet) 426 ms MUSE SYSTEM Calculated P [place] 68 degrees MUSE SYSTEM Calculated R [place] 63 degrees MUSE SYSTEM Calculated T [place] 49 degrees MUSE SYSTEM INTERPRETATION Normal sinus rhythm Normal ECG When compared with ECG of 25-MAR-2013 04:48, No significant change was found Confirmed by MD ROSALBA, BRIDGET ([id number]) on 03/25/2013 9:44:04 PM MUSE SYSTEM 03/25/2013 1:09 PM EDT 03/25/2013 9:44 PM EDT Pillo Avina MD ECG ORDERABLES Performing Organization Address [facility] de Phone Number MUSE SYSTEM * (ABNORMAL) Hemogram (03/25/2013 5:09 AM EDT) WBC 11.6(H) 4.0 - 10.0 x10(3)/mcL CERNER MILLENNIUM RBC 3.79(L) 4.63 - 6.08 x10(6)/mcL CERNER MILLENNIUM Hemoglobin 11.0(L) 13.7 - 17.5 gm/dL CERNER MILLENNIUM Hematocrit 33.1(L) 40.0 - 51.0 % CERNER MILLENNIUM MCV 87.3 79.0 - 92.0 fL CERNER MILLENNIUM MCH 29.0 25.6 - 32.2 pg CERNER MILLENNIUM MCHC 33.2 32.0 - 36.5 gm/dL CERNER MILLENNIUM Platelets 216 145 - 370 x10(3)/mcL CERNER MILLENNIUM RDWSD 43.8 35.0 - 46.0 fL CERNER MILLENNIUM RDWCV 13.7 10.9 - 14.4 % CERNER MILLENNIUM MPV 9.3 9.0 - 12.0 fL CERNER MILLENNIUM Blood specimen (specimen) 03/25/2013 5:09 AM EDT 03/25/2013 5:18 AM EDT Narrative Resulting Agency Comment Spec In Lab Pillo Avina MD HEMATOLOGY ORDERABLE S CERNER MILLENNIUM * (ABNORMAL) Basic Metabolic Panel (non-fasting) (03/25/2013 5:09 AM EDT) Glucose Lvl 110 60 - 199 mg/dL CERNER MILLENNIUM Comment:Diabetes: >=200 mg/d L plus symptoms BUN 13 10 - 20 mg/dL CERNER MILLENNIUM Creatinine 0.88 0.80 - 1.50 mg/dL CERNER MILLENNIUM Comment: Please note that the pediatric reference intervals supplied above were not validated at [facility]. Results from pediatric patients should be interpreted in conjunction to the patient's age, height and muscle mass. Sodium 136 135 - 145 mmol/L CERNER MILLENNIUM Potassium 4.0 3.5 - 5.0 mmol/L CERNER MILLENNIUM Comment: Please note: ??Patients with WBC >100,000 may have falsely elevated Potassium levels. ??For accurate Potassium quantification in these patients send serum separator tube (gold top) for subsequent determinations. ??Contact the Clinical Chemistry Laboratory if there are any questions. Chloride 98 98 - 107 mmol/L CERNER MILLENNIUM CO2 27 22 - 31 mmol/L CERNER MILLENNIUM Anion Gap 11 5 - 15 mmol/L CERNER MILLENNIUM Calcium 8.3(L) 8.5 - 10.5 mg/dL CERNER MILLENNIUM Estimated [...] internet browser. http://www.nkdep.nih.gov/lab-evaluation.shtml http://www.kidney.org/professionals/ Blood specimen (specimen) 03/25/2013 5:09 AM EDT 03/25/2013 5:18 AM EDT Narrative Resulting Agency Comment Spec In Lab Pillo Avina MD CHEMISTRY ORDERABLES Performing Organization Address [facility] de Phone Number NATHALY VALERA * EKG 12 Lead (03/25/2013 4:48 AM EDT) Ventricular rate 107 BPM MUSE SYSTEM Atrial Rate 107 BPM MUSE SYSTEM P-R Interval 134 ms MUSE SYSTEM QRS Duration 82 ms MUSE SYSTEM Q-T Interval 318 ms MUSE SYSTEM QTC Calculated (Bezet) 424 ms MUSE SYSTEM Calculated P [place] 66 degrees MUSE SYSTEM Calculated R [place] 55 degrees MUSE SYSTEM Calculated T [place] 52 degrees MUSE SYSTEM INTERPRETATION Sinus tachycardia Otherwise normal ECG When compared with ECG of 24-MAR-2013 16:10, No significant change was found Confirmed by MD NAVARRETE BRUCE ([id number]) on 03/25/2013 9:21:03 AM MUSE SYSTEM 03/25/2013 4:48 AM EDT 03/25/2013 9:21 AM EDT Pillo Avina MD ECG ORDERABLES Performing Organization Address [facility] de Phone Number MUSE SYSTEM * EKG 12 Lead (03/24/2013 4:10 PM EDT) Ventricular rate 115 BPM MUSE SYSTEM Atrial Rate 115 BPM MUSE SYSTEM P-R Interval 130 ms MUSE SYSTEM QRS Duration 82 ms MUSE SYSTEM Q-T Interval 316 ms MUSE SYSTEM QTC Calculated (Bezet) 437 ms MUSE SYSTEM Calculated P [place] 54 degrees MUSE SYSTEM Calculated R [place] 46 degrees MUSE SYSTEM Calculated T [place] 50 degrees MUSE SYSTEM INTERPRETATION Sinus tachycardia Minimal voltage criteria for LVH, may be normal variant Nonspecific T wave abnormality Abnormal ECG No previous ECGs available Confirmed by MD NAVARRETE BRUCE ([id number]) on 03/24/2013 10:23:37 PM MUSE SYSTEM 03/24/2013 4:10 PM EDT 03/24/2013 10:23 PM EDT Pillo Avina MD ECG ORDERABLES Performing Organization Address City/[facility] Co de Phone Number MUSE SYSTEM * (ABNORMAL) Hemoglobin and Hematocrit, blood (03/24/2013 6:12 AM EDT) Hemoglobin 12.7(L) 13.7 - 17.5 gm/dL CERNER MILLENNIUM Hematocrit 38.4(L) 40.0 - 51.0 % CERNER MILLENNIUM Blood specimen (specimen) 03/24/2013 6:12 AM EDT 03/24/2013 6:19 AM EDT Narrative Resulting Agency Comment Spec In Lab Pillo Avina MD HEMATOLOGY ORDERABLE S Performing Organization Address [facility] de Phone Number CERNER MILLENNIUM * Potassium (03/24/2013 6:12 AM EDT) Potassium 4.6 3.5 - 5.0 mmol/L CERNER MILLENNIUM Comment: Please note: ??Patients with WBC >100,000 may have falsely elevated Potassium levels. ??For accurate Potassium quantification in these patients send serum separator tube (gold top) for subsequent determinations. ??Contact the Clinical Chemistry Laboratory if there are any questions. Blood specimen (specimen) 03/24/2013 6:12 AM EDT 03/24/2013 6:19 AM EDT Narrative Resulting Agency Comment Spec In Lab Pillo Avina MD CHEMISTRY ORDERABLES Performing Organization Address [facility] Co de Phone Number CERNER MILLENNIUM * (ABNORMAL) Hemoglobin and Hematocrit, blood (03/23/2013 5:15 PM EDT) Hemoglobin 13.4(L) 13.7 - 17.5 gm/dL CERNER MILLENNIUM Hematocrit 40.6 40.0 - 51.0 % CERNER MILLENNIUM Blood specimen (specimen) 03/23/2013 5:15 PM EDT 03/23/2013 5:27 PM EDT Narrative Resulting Agency Comment Spec In Lab Pillo Avina MD HEMATOLOGY ORDERABLE S NATHALY VALERA * Potassium (03/23/2013 5:15 PM EDT) Potassium 4.2 3.5 - 5.0 mmol/L CERNER JOSE JUANENNIUM Comment: Please note: ??Patients with WBC >100,000 may have falsely elevated Potassium levels. ??For accurate Potassium quantification in these patients send serum separator tube (gold top) for subsequent determinations. ??Contact the Clinical Chemistry Laboratory if there are any questions. Blood specimen (specimen) 03/23/2013 5:15 PM EDT 03/23/2013 5:27 PM EDT Narrative Resulting Agency Comment Spec In Lab Pillo Avina MD CHEMISTRY ORDERABLES Performing Organization Address [facility]/ZIP Co de Phone Number NATHALY VALERA * (ABNORMAL) BLOOD GAS 2 ARTERIAL (03/23/2013 3:32 PM EDT) pH Art 7.37 CERNER MILLENNIUM pCO2 Art 39 mmHg CERNER MILLENNIUM pO2 Art 327(H) mmHg CERNER MILLENNIUM HCO3 Art 22.1 mmol/L CERNER MILLENNIUM BE Art -3.1(L) mmol/L CERNER MILLENNIUM Hgb Blood Gas 14.0 gm/dL CERNER MILLENNIUM Comment: Total Hemoglobin (in gm/dL) ?Based on [facility] Hematology ranges: ?Age ?Reference Range Less than 3 days ?14.5 to 22.5 3 days to 2 weeks ? 12.5 to 20.5 2 weeks to 1 month ?10.0 to 18.0 1 to 6 months ?9.4 to 14.0 6 months to 2 years ? 10.5 to 13.5 2 to 6 years ?11.5 to 13.5 6 to 12 years ? 11.5 to 15.5 12 to 18 years (female) 12.0 to 16.0 ? (male) ?? 13.0 to 16.0 > 18 years ? (female) 11.2 to 15.7 ? (male) ?? 13.7 to 17.5 O2HB Art 97.7(H) % CERNER MILLENNIUM COHB Art 1.7 % CERNER MILLENNIUM Comment: Nonsmokers: 0.5-1.5% COHB Smokers: Variable, but usually less than 10% Toxic: 20-30% COHB Lethal: Greater than 60% COHB METHB Art 0.2 % CERNER MILLENNIUM Na Whole Blood 136 mmol/L CERNE R MILLENNIUM K Whole Blood 3.8 mmol/L CERNER MILLENNIUM Comment: Please note: Patients with WBC >100,000 may have falsely elevated Potassium levels. Contact the Clinical Chemistry Laboratory if there are any questions. ICa Whole Blood 1.08(L) mmol/L CERN ER MILLENNIUM Comment: Reference Ranges: ?? < 19 yrs: 1.22 - 1.37 mmol/L ? Adults: 1.15 - 1.33 mmol/L Note: ??Total bilirubin higher than 20 mg/dL may lead to falsely low ionized calcium. CL Whole Blood 107 mmol/L CERNE R MILLENNIUM Gluc Whole Bld 160 mg/dL CERNE R MILLENNIUM Comment:Diabetes: >=200 mg/d L plus symptoms. Blood specimen (specimen) 03/23/2013 3:32 PM EDT 03/23/2013 3:32 PM EDT Pillo Avina MD CHEMISTRY ORDERABLES CERJAKE MILLENNIUM * Surgical Pathology Report (03/23/2013 3:21 PM EDT) Surgical Pathology Report ? [facility] ? Provider: ?? PILLO AVINA ?Pt. Name: ?? ELLIE RODRIGUEZ, DANYA Hinojosa ? Acc #: ?[id number] ?Pt. ? Col Date: ?? 03/23/2013 ?/Sex: ?1970,(43 years),Male ? Rec Date: ?? 03/23/2013 ?LOC: ?4WST ? SURGICAL PATHOLOGY ? ---Pathologic Diagnosis--- ? Colon, total colectomy: ? Consistent with ulcerative colitis, chronic inactive, mild with ? submucosal fibrosis and pseudopolyps, negative for dysplasia. ? Unremarkable terminal ileum. ? Appendix with fibrous obliteration of the tip. ? Three hyperplastic polyps. ? CR-0, CR-PX ? 03/30/13 ? ML ? 03/30/13 Verified by: ? Pritesh Ramsey MD ? Pathologist ? (Electronic Signature) ? The attending pathologist whose signature appears on this report has ? reviewed all diagnostic slides and has edited the gross and/or ? microscopic portion of the report in rendering the final pathologic ? diagnosis. ? ---Gross Description--- ? A - Labeled/Fixative : Colon, fresh. ? SPECIMEN DESCRIPTION ? Resection Specimen: Subtotal colectomy extending from the terminal ileum to ? the distal sigmoid. ? Length/Diameter: 5 x 2 cm terminal ileum; 100 x 3.5 cm colon. ? External Architecture: Preserved. ? Serosa: Corazon, smooth and glistening. ? Mucosa: Red with flattened, attenuated folds. ??Three, 0.8 cm, firm, white, ? plaque-like areas are identified, two within the sigmoid and one within the ? descending colon. ??There are a few inflammatory polyps in the descending ? colon. ? Wall Thickness: 0.5 cm. ? Margins: Uninvolved. ? Appendix: 6.0 x 0.5 cm, grossly unremarkable. ? Sections/Process ing: (1) proximal margin; (2) cecum; (3-5) ascending colon; ? (6-8) transverse colon; (9-11) descending colon; (12-14) sigmoid colon; ? (15) distal margin; (16-17) appendix. (R17) ??sns ? ---Clinical Information--- ? Specimen Submitted: ? A - Colon ? [facility] ? Provider: ?? PILLO AVINA ?Pt. Name: ?? ELLIE RODRIGUEZ, DANYA Hinojosa ? Acc #: ?[id number] ?Pt. ? Col Date: ?? 03/23/2013 ?/Sex: ?1970,(43 years),Male ? Rec Date: ?? 03/23/2013 ?LOC: ?4WST ? SURGICAL PATHOLOGY ? Clinical History: ? DAI ? Clinical Diagnosis: ? Same NATHALY VALERA 03/23/2013 3:21 PM EDT Pillo Avina MD PATHOLOGY/CYTOLOGY O TAMANNA NATHALY VALERA * Specimen to Pathology (surgical or derm) (03/23/2013 3:21 PM EDT) AP Specimen 03/23/2013 3:21 PM EDT 03/23/2013 3:21 PM EDT Narrative NATHALY VALERA - 03/23/2013 3:21 PM EDT Specimen requisition ordered. ??Separate Pathology report to follow Pillo Avina MD PATHOLOGY/CYTOLOGY O RDERABLES NATHALY VALERA * (ABNORMAL) BLOOD GAS 2 ARTERIAL (03/23/2013 12:58 PM EDT) pH Art 7.32(L) CERNER MILLENNIUM pCO2 Art 51(Critica l) mmHg CERNER MILLENNIUM Comment:Noted by supervisor instrument mechanics. pO2 Art 154(H) mmHg CERNER MILLENNIUM HCO3 Art 25.5 mmol/L CERNER MILLENNIUM BE Art -0.6 mmol/L CERNER MILLENNIUM Hgb Blood Gas 14.4 gm/dL CERNER MILLENNIUM Comment: Total Hemoglobin (in gm/dL) ?Based on [facility] Hematology ranges: ?Age ?Reference Range Less than 3 days ?14.5 to 22.5 3 days to 2 weeks ? 12.5 to 20.5 2 weeks to 1 month ?10.0 to 18.0 1 to 6 months ?9.4 to 14.0 6 months to 2 years ? 10.5 to 13.5 2 to 6 years ?11.5 to 13.5 6 to 12 years ? 11.5 to 15.5 12 to 18 years (female) 12.0 to 16.0 ? (male) ?? 13.0 to 16.0 > 18 years ? (female) 11.2 to 15.7 ? (male) ?? 13.7 to 17.5 O2HB Art 96.1 % CERNER MILLENNIUM COHB Art 2.5 % CERNER MILLENNIUM Comment: Nonsmokers: 0.5-1.5% COHB Smokers: Variable, but usually less than 10% Toxic: 20-30% COHB Lethal: Greater than 60% COHB METHB Art 0.3 % CERNER MILLENNIUM Na Whole Blood 137 mmol/L CERNE R MILLENNIUM K Whole Blood 3.7 mmol/L CERNER MILLENNIUM Comment: Please note: Patients with WBC >100,000 may have falsely elevated Potassium levels. Contact the Clinical Chemistry Laboratory if there are any questions. ICa Whole Blood 1.15(L) mmol/L CERN ER MILLENNIUM Comment: Reference Ranges: ?? < 19 yrs: 1.22 - 1.37 mmol/L ? Adults: 1.15 - 1.33 mmol/L Note: ??Total bilirubin higher than 20 mg/dL may lead to falsely low ionized calcium. CL Whole Blood 106 mmol/L CERNE R MILLENNIUM Gluc Whole Bld 133 mg/dL CERNE R MILLENNIUM Comment:Diabetes: >=200 mg/d L plus symptoms. Blood specimen (specimen) 03/23/2013 12:58 PM EDT 03/23/2013 12:58 PM EDT Pillo Avina MD CHEMISTRY ORDERABLES [facility] documented in this encounter Visit Diagnoses Diagnosis Atrial fibrillation Atrial fibrillation documented in this encounter Administered Medications Inactive Administered Medications - up to 3 most recent administrations Medication Order MAR Action Action Date Dose Rate Site acetaminophen (TYLENOL) tablet 1,000 mg 1,000 mg, Oral, EVERY 6 HOURS, First dose on 03/29/13 at 1000, Until Discontinued, Maximum dose of acetaminophen is 4000 mg from all sources in 24 hours., Routine Given 03/30/2013 4:00 AM EDT 1,000 mg Given 03/29/2013 10:00 PM EDT 1,000 mg Given 03/29/2013 5:00 PM EDT 1,000 mg albuterol (PROVENTIL HFA;VENTOLIN HFA) 90 mcg/actuation inhaler 2 puff 2 puff, Inhalation, EVERY 4 HOURS PRN, Starting on Fri03/23/13 at 2047, Until Fri03/30/13 at 1304, Wheezing, Shortness of Breath, Routine Given 03/27/2013 8:46 AM EDT 2 puffs BUpivacaine (PF) (MARCAINE) 0.25 % (2.5 mg/mL) injection 5 mg 5 mg, Epidural, ONCE, 1 dose, On Fri03/23/13 at 1845, STAT Given 03/23/2013 6:14 PM EDT 5 mg BUpivacaine (PF) (MARCAINE) 0.25 % (2.5 mg/mL) injection 7.5 mg 7.5 mg, Epidural, ONCE, 1 dose, On Fri03/23/13 at 1815, Administered by Dr. Eckert at 1850, Routine Given 03/23/2013 6:50 PM EDT 7.5 mg BUpivacaine 0.125% in NS (MARCAINE) (1.25 mg/mL) (1/8%) neuraxial 10 mL/hr, Epidural, CONTINUOUS, Starting on Fri03/23/13 at 1730, Until Fri03/23/13 at 1817, Recovery (Recovery-Hospital Unit), Routine New Bag 03/23/2013 5:30 PM EDT 8 mL/hr 8 mL/hr BUpivacaine 0.125% in NS (MARCAINE) (1.25 mg/mL) (1/8%) neuraxial 14 mL/hr, Epidural, CONTINUOUS, Starting on Fri03/23/13 at 1845, Until 03/27/13 at 0930, Routine New Bag 03/27/2013 7:38 AM EDT 14 mL/hr 14 mL/hr New Bag 03/26/2013 3:29 PM EDT 14 mL/hr 14 mL/hr New Bag 03/25/2013 9:35 PM EDT 14 mL/hr 14 mL/hr calcium carbonate (TUMS) chewable tablet 500 mg 500 mg, Oral, DAILY PRN, Starting on Nasreen 03/25/13 at 1510, Until Fri03/30/13 at 1304, Heartburn, Routine Given 03/26/2013 7:46 AM EDT 500 mg Given 03/25/2013 4:17 PM EDT 500 mg ceFAZolin (ANCEF) 2g in dextrose 5% 50 mL 2 g, Intravenous, EVERY 8 HOURS, 2 doses, First dose (after last modification) on Fri03/23/13 at 2345, Last dose on Fri03/24/13 at 0745, For 30 minutes., Indication for (Active or Suspected): Prophylaxis Given 03/24/2013 6:29 AM EDT 2 g Given 03/23/2013 10:36 PM EDT 2 g dextrose 5% and sodium chloride 0.45% infusion 50 mL/hr, Intravenous, CONTINUOUS, Starting on Fri03/25/13 at 0830, Until Fri03/29/13 at 1834 Rate/Dose Verify 03/29/2013 10:00 AM EDT 50 mL/hr 50 mL/hr New Bag 03/29/2013 8:50 AM EDT 50 mL/hr 50 mL/hr New Bag 03/28/2013 2:47 PM EDT 100 mL/hr 100 mL/hr diphenhydrAMINE (BENADRYL) injection 25 mg 25 mg, Intravenous, EVERY 30 MIN PRN, 2 doses, Starting on Fri03/23/13 at 1712, Until Fri03/25/13 at 2048, Itching, May repeat dose in 30 minutes if pruritis not relieved., Routine Given 03/25/2013 8:4 8 PM EDT 25 mg Given 03/24/2013 9:40 PM EDT 25 mg esomeprazole (NEXIUM) capsule 40 mg 40 mg, Oral, DAILY, First dose on Fri03/25/13 at 1000, Until Discontinued, Routine Given 03/25/2013 10: 00 AM EDT 40 mg esomeprazole (NEXIUM) capsule 40 mg 40 mg, Oral, DAILY, First dose on Fri03/26/13 at 0900, Until Discontinued, Routine Given 03/29/2013 9:0 0 AM EDT 40 mg Given 03/28/2013 9:00 AM EDT 40 mg Given 03/26/2013 9:00 AM EDT 40 mg esomeprazole (NEXIUM) injection 40 mg 40 mg, Intravenous, DAILY, First dose on Fri03/26/13 at 0900, Until Discontinued Given 03/27/2013 11:16 AM EDT 40 mg fentaNYL 50mcg/mL injection 12.5-50 mcg, Intravenous, EVERY 5 MIN PRN, Starting on Fri03/23/13 at 1017, Until Fri03/23/13 at 1113, for epidural placement only, Day of Surgery (Day of Procedure), Routine Given 03/23/2013 10:30 AM EDT 25 mcg fentaNYL 50mcg/mL injection 25 mcg, Epidural, ONCE, 1 dose, On Fri03/23/13 at 1815, Administered by Dr. Eckert at 1750 pm, Day of Surgery (Day of Procedure), STAT Given by Other 03/23/2013 5:48 PM EDT 25 mcg fluticasone-salmeterol (ADVAIR HFA) 230-21 mcg/actuation inhaler 2 puff 2 puff, Inhalation, EVERY 12 HOURS SCHEDULED (2 times per day), First dose on Fri03/23/13 at 2200, Until Discontinued, Rinse mouth after administration Given 03/30/2013 8:52 AM EDT 2 puffs Given 03/29/2013 9:00 PM EDT 2 puffs Given 03/29/2013 9:00 AM EDT 2 puffs heparin (porcine) 5,000 unit/0.5 mL subcutaneous injection 1 dose, Starting on Fri03/23/13 at 0920, Until Fri03/23/13 at 1207, KIANA GIBBS: cabinet override heparin (porcine) subcutaneous injection 5,000 Units 5,000 Units, Subcutaneous, ONCE, 1 dose, On Fri03/23/13 at 0945, Day of Surgery (Day of Procedure), Routine Given by Other 03/23/2013 12:07 PM EDT 5,000 Units heparin (porcine) subcutaneous injection 5,000 Units 5,000 Units, Subcutaneous, EVERY 12 HOURS SCHEDULED (2 times per day), First dose on Fri03/23/13 at 2130, Until Discontinued, Routine Given 03/29/2013 9:00 PM EDT 5,000 Units Given 03/29/2013 9:00 AM EDT 5,000 Units Given 03/28/2013 8:40 PM EDT 5,000 Units HYDROmorphone (DILAUDID) 1 mg/mL PM TECHNICIAN 30 mL Intravenous, PM TECHNICIAN ONLY, Starting on Fri03/23/13 at 1730, Until Fri03/29/13 at 0949 Rate/Dose Verify 03/23/2013 9:00 PM EDT New Syringe/Cartridge 03/23/2013 5:30 PM EDT HYDROmorphone (DILAUDID) injection 0.2-0.4 mg 0.2-0.4 mg, Intravenous, EVERY 5 MIN PRN, Starting on Fri03/23/13 at 1709, Until Fri03/23/13 at 1951, Pain, PACU Recovery, Routine Given 03/23/2013 5:44 PM EDT 0.4 mg Given 03/23/2013 5:28 PM EDT 0.4 mg HYDROmorphone (DILAUDID) tablet 2 mg 2 mg, Oral, EVERY 4 HOURS PRN, Starting on Fri03/29/13 at 0948, Until Fri03/30/13 at 1304, Pain, for mild pain, May give an additional 2 mg one time if pain not relieved in 30-60 minutes., Routine Given 03/29/2013 10:30 AM EDT 2 mg lactated ringers infusion 100 mL/hr, Intravenous, CONTINUOUS, Starting on Fri03/23/13 at 1000, Until Fri03/23/13 at 2047 New Bag 03/23/2013 9:36 AM EDT 100 mL/hr 100 mL/hr lisinopril (PRINIVIL;ZESTRIL) tablet 10 mg 10 mg, Oral, DAILY, First dose on Fri03/26/13 at 0900, Until Discontinued, Routine Given 03/30/2013 8:52 AM EDT 10 mg Given 03/29/2013 9:00 AM EDT 10 mg Given 03/28/2013 9:00 AM EDT 10 mg LORazepam (ATIVAN) injection 0.5 mg 0.5 mg, Intravenous, ONCE, 1 dose, On Fri03/26/13 at 2100, FOR NGT Placement, Routine Given 03/26/2013 9:00 PM EDT 0.5 mg methylPREDNISolone sodium succinate (PF) (SOLU-MEDROL) 40 mg/mL injection 20 mg 20 mg, Intravenous, EVERY 8 HOURS, First dose on Fri03/23/13 at 1730, Until Discontinued, Routine Given 03/24/2013 3:57 AM EDT 20 mg Given 03/23/2013 8:10 PM EDT 20 mg methylPREDNISolone sodium succinate (PF) (SOLU-MEDROL) 40 mg/mL injection 20 mg 20 mg, Intravenous, EVERY 12 HOURS, First dose (after last modification) on Fri03/24/13 at 1600, Until Discontinued, Routine Given 03/25/2013 4:00 AM EDT 20 mg Given 03/24/2013 5:46 PM EDT 20 mg methylPREDNISolone sodium succinate (PF) (SOLU-MEDROL) 40 mg/mL injection 20 mg 20 mg, Intravenous, DAILY, First dose (after last modification) on Fri03/26/13 at 0400, Until Discontinued, Routine Given 03/27/2013 11:16 AM EDT 20 mg Given 03/26/2013 4:35 AM EDT 20 mg methylPREDNISolone sodium succinate (PF) (SOLU-MEDROL) 40 mg/mL injection 20 mg 20 mg, Intravenous, 2 TIMES DAILY, First dose (after last modification) on 03/27/13 at 2100, Until Discontinued, Routine Given 03/27/2013 9:00 PM EDT 20 mg metoprolol (LOPRESSOR) injection 5 mg 5 mg, Intravenous, ONCE, 1 dose, On Nasreen 03/25/13 at 0900 Given 03/25/2013 9:00 AM EDT 5 mg metoprolol (LOPRESSOR) injection 5 mg 5 mg, Intravenous, EVERY 6 HOURS, First dose on Nasreen 03/25/13 at 1815, Until Discontinued, Hold for sbp <90 or HR <60 Given 03/29/2013 12:15 AM EDT 5 mg Given 03/28/2013 6:33 PM EDT 5 mg Given 03/28/2013 12:15 PM EDT 5 mg metoprolol tartrate (LOPRESSOR) tablet 25 mg 25 mg, Oral, EVERY 12 HOURS SCHEDULED (2 times per day), 1 dose, First dose on Fri03/29/13 at 2100, Routine Given 03/29/2013 9:00 PM EDT 25 mg metroNIDAZOLE (FLAGYL) 1000 mg in sodium chloride 0.9% 200 mL (2x100 mL bags) 1,000 mg, Intravenous, EVERY 8 HOURS, 2 doses, First dose (after last modification) on Fri03/23/13 at 1745, Last dose on Fri03/24/13 at 0145, Administer over 60 Minutes, Infuse two bags of 500 mg/100 mL each over 30 minutes consecutively. Total dose 1000 mg/200 mL. Document infusion initiation time of first bag., Indication for (Active or Suspected): Prophylaxis Given 03/24/2013 3:30 AM EDT 1,000 mg Given 03/23/2013 7:00 PM EDT 1,000 mg metroNIDAZOLE (FLAGYL) 500 mg/100 mL 1 dose, Starting on Fri03/23/13 at 0931, Until Fri03/23/13 at 1134, MABEL ARNOLD: cabinet override New Bag 03/23/2013 11:34 AM EDT 1,000 m g midazolam (VERSED) injection 0.5-2 mg 0.5-2 mg, Intravenous, EVERY 1 MIN PRN, Starting on Fri03/23/13 at 1017, Until Fri03/23/13 at 1113, for epidural placement only, Day of Surgery (Day of Procedure), Routine Given 03/23/2013 10:45 AM EDT 1 mg Given 03/23/2013 10:35 AM EDT 1 mg Given 03/23/2013 10:30 AM EDT 1 mg ondansetron (ZOFRAN) injection 4 mg 4 mg, Intravenous, EVERY 30 MIN PRN, 2 doses, Starting on Fri03/23/13 at 1712, Until Nasreen 03/25/13 at 0814, Nausea, May repeat dose once in 30 minutes if no relief from previous dose. Given 03/23/2013 10 :13 PM EDT 4 mg ondansetron (ZOFRAN) injection 4 mg 4 mg, Intravenous, EVERY 8 HOURS PRN, Starting on Fri03/23/13 at 1712, Until Fri03/30/13 at 1304, Nausea, May repeat times one in 30 minutes if ineffective Given 03/27/2013 4:10 AM EDT 4 mg ondansetron (ZOFRAN) tablet 4 mg 4 mg, Oral, EVERY 8 HOURS PRN, Starting on Fri03/23/13 at 1712, Until Fri03/30/13 at 1304, Nausea, Vomiting, If multiple antiemetics are ordered, use ondansetron first. PO Preferred. If patient unable to take PO, may give IV if ordered. May repeat times one in 45 minutes if ineffective. , Routine Given 03/26/2013 5:40 PM EDT 4 mg Given 03/26/2013 7:46 AM EDT 4 mg PARoxetine (PAXIL) tablet 40 mg 40 mg, Oral, EVERY MORNING, First dose on Fri03/24/13 at 0700, Until Discontinued, Routine Given 03/30/2013 7:0 0 AM EDT 40 mg Given 03/29/2013 7:00 AM EDT 40 mg Given 03/28/2013 7:00 AM EDT 40 mg potassium chloride (K-DUR/KLOR-CON) extended release tablet 10 mEq 10 mEq, Oral, 3 TIMES DAILY, 3 doses, First dose on Fri03/29/13 at 1030, Last dose on Fri03/29/13 at 2100, Routine Given 03/29/2013 9:00 PM EDT 10 mEq Given 03/29/2013 3:00 PM EDT 10 mEq Given 03/29/2013 10:30 AM EDT 10 mEq potassium chloride 10 mEq in 100 mL 10 mEq, Intravenous, EVERY 2 HOURS, 4 doses, First dose on Fri03/29/13 at 0915, Last dose on Fri03/29/13 at 1515, Administer over 60 Minutes Given 03/29/2013 9:20 AM EDT 10 mEq 100 mL/hr predniSONE (DELTASONE) tablet 20 mg 20 mg, Oral, DAILY, First dose on Fri03/29/13 at 0900, Until Discontinued, Routine Given 03/30/2013 8:52 AM EDT 20 mg Given 03/29/2013 9:20 AM EDT 20 mg prochlorperazine (COMPAZINE) injection 5 mg 5 mg, Intravenous, EVERY 30 MIN PRN, 2 doses, Starting on Fri03/23/13 at 1712, Until Fri03/29/13 at 0949, Nausea, May repeat in 30 minutes if no relief from previous dose. HOLD if patient is sedated. Maximum dose is 40 mg in 24 hours., Routine Given 03/27/2013 6:44 AM EDT 5 mg sodium chloride 0.9 % flush 10 mL 10 mL, Intravenous, EVERY 8 HOURS SCHEDULED, First dose on Fri03/23/13 at 2200, Until Discontinued, Routine Given 03/30/2013 6:00 AM EDT 10 mLs Given 03/29/2013 10:00 PM EDT 10 mLs Given 03/29/2013 6:00 AM EDT 10 mLs sodium chloride 0.9% 1,000 mL IV bolus Intravenous, ONCE, 1 dose, On Fri03/26/13 at 1815 Given 03/26/2013 6:15 PM EDT sodium chloride 0.9% 500 mL IV bolus Intravenous, ONCE, 1 dose, On Fri03/24/13 at 1130 Given 03/24/2013 12:58 PM EDT sodium chloride 0.9% 500 mL IV bolus Intravenous, ONCE, 1 dose, On 03/27/13 at 0915 Given 03/27/2013 11:15 AM EDT sodium chloride 0.9% infusion 100 mL/hr, Intravenous, CONTINUOUS, Starting on Fri03/24/13 at 1130, Until Nasreen 03/25/13 at 0814 New Bag 03/24/2013 11:37 PM EDT 100 mL/hr 100 mL/hr New Bag 03/24/2013 12:53 PM EDT 100 mL/hr 100 mL/hr sodium chloride 0.9% with potassium chloride 20 mEq infusion 100 mL/hr, Intravenous, CONTINUOUS, Starting on Fri03/23/13 at 1730, Until Fri03/24/13 at 1312 New Bag 03/24/2013 5:15 AM EDT 100 mL/hr 100 mL/hr New Bag 03/23/2013 6:00 PM EDT 100 mL/hr 100 mL/hr documented in this encounter Active and Recently Administered Medications Times are shown in EDT. Scheduled Medication Order 03/28/2013 03/29/2013 03/30/2013 acetaminophen (TYLENOL) tablet 1,000 mg 1,000 mg, Oral, EVERY 6 HOURS, First dose on 03/29/13 at 1000, Until Discontinued, Maximum dose of acetaminophen is 4000 mg from all sources in 24 hours., Routine 1030 (Given - Provider: Hortencia Storey)1700 (Given - Provider: Sandra Sanchez RN)2200 (Given - Provider: Niya Metz RN) 0400 (Given - Provider: Niya Metz RN)1000 (Due) esomeprazole (NEXIUM) capsule 40 mg (CANCELED)(Linked Group 1) 40 mg, Oral, DAILY, First dose on Fri03/26/13 at 0900, Until Discontinued, Routine 0900 (Given - Provider: Karlee Blanco RN) 0900 (Given - Provider: Hortencia Storey) fluticasone-salmeterol (ADVAIR HFA) 230-21 mcg/actuation inhaler 2 puff (CANCELED) 2 puff, Inhalation, EVERY 12 HOURS SCHEDULED (2 times per day), First dose on Fri03/23/13 at 2200, Until Discontinued, Rinse mouth after administration 0900 (Given - Provider: Karlee Blanco RN)204 (Given - Provider: Niya Metz RN) 0900 (Given - Provider: Hortencia Storey)2100 (Given - Provider: Niya Metz RN) 0852 (Given - Provider: Lisa Sanz RN) heparin (porcine) subcutaneous injection 5,000 Units (CANCELED) 5,000 Units, Subcutaneous, EVERY 12 HOURS SCHEDULED (2 times per day), First dose on Fri03/23/13 at 2130, Until Discontinued, Routine 0900 (Given - Provider: Karlee Blanco RN)2039 (Given - Provider: Niya Metz RN) 0900 (Given - Provider: Hortencia Storey)2100 (Given - Provider: Niya Metz RN) 0851 (Not Given - Provider: Lisa Sanz RN - Reason: Patient/family refused) lisinopril (PRINIVIL;ZESTRIL) tablet 10 mg 10 mg, Oral, DAILY, First dose on Fri03/26/13 at 0900, Until Discontinued, Routine 0900 (Given - Provider: Karlee Blanco RN) 0900 (Given - Provider: Hortencia Storey) 0852 (Given - Provider: Lisa Sanz RN) metoprolol (LOPRESSOR) injection 5 mg (CANCELED) 5 mg, Intravenous, EVERY 6 HOURS, First dose on Fri03/25/13 at 1815, Until Discontinued, Hold for sbp <90 or HR <60 0015 (Given - Provider: Niya Metz RN)0615 (Given - Provider: Niya Metz RN)1215 (Given - Provider: Karlee Blanco RN)1833 (Given - Provider: Karlee Blanco RN) 0015 (Given - Provider: Niya Metz RN)0615 (Not Given - Provider: Niya Metz RN - Reason: Order parameters not met) metoprolol tartrate (LOPRESSOR) tablet 25 mg (COMPLETED) 25 mg, Oral, EVERY 12 HOURS SCHEDULED (2 times per day), 1 dose, First dose on Fri03/29/13 at 2100, Routine 2100 (Given - Provider: Niya Metz RN) PARoxetine (PAXIL) tablet 40 mg (CANCELED) 40 mg, Oral, EVERY MORNING, First dose on Fri03/24/13 at 0700, Until Discontinued, Routine 0700 (Given - Provider: Niya Metz RN) 0700 (Given - Provider: Niya Metz RN) 0700 (Given - Provider: Niya Metz RN) potassium chloride (K-DUR/KLOR-CON) extended release tablet 10 mEq (COMPLETED) 10 mEq, Oral, 3 TIMES DAILY, 3 doses, First dose on Fri03/29/13 at 1030, Last dose on Fri03/29/13 at 2100, Routine 1030 (Given - Provider: Hortencia Storey)1500 (Given - Provider: Hortencia Storey)2100 (Given - Provider: Niya Metz RN) potassium chloride 10 mEq in 100 mL (CANCELED) 10 mEq, Intravenous, EVERY 2 HOURS, 4 doses, First dose on Fri03/29/13 at 0915, Last dose on Fri03/29/13 at 1515, Administer over 60 Minutes 0920 (Given - Provider: Hortencia Storey) predniSONE (DELTASONE) tablet 20 mg 20 mg, Oral, DAILY, First dose on Fri03/29/13 at 0900, Until Discontinued, Routine 0920 (Given - Provider: Hortencia Storey) 0852 (Given - Provider: Lisa Sanz RN) psyllium packet 1 packet 1 packet, Oral, 2 TIMES DAILY, First dose on Fri03/30/13 at 0900, Until Discontinued, Routine 0900 (Due) sodium chloride 0.9 % flush 10 mL (CANCELED) 10 mL, Intravenous, EVERY 8 HOURS SCHEDULED, First dose on Fri03/23/13 at 2200, Until Discontinued, Routine 0600 (Given - Provider: Niya Metz RN)1312 (Given - Provider: Lisa Leonardo RN)2200 (Given - Provider: Niya Metz, RN) 0600 (Given - Provider: Niya Metz RN)1400 (Not Given - Provider: Hortencia Storey - Reason: See comment - Comment: IV was infusing)2200 (Given - Provider: Niya Metz, RN) 0600 (Given - Provider: Niya Metz, RN) Continuous Medication Order 03/28/2013 03/29/2013 03/30/2013 dextrose 5% and sodium chloride 0.45% infusion (CANCELED) 50 mL/hr, Intravenous, CONTINUOUS, Starting on Nasreen 03/25/13 at 0830, Until Fri03/29/13 at 1834 1447 (New Bag - Provider: Karlee Blanco RN) 0850 (New Bag - Provider: Hortencia Storey)1000 (Rate/Dose Verify - Provider: Hortencia Storey)1836 (Stopped - Provider: Sandra Sanchez RN) PRN Medication Order 03/28/2013 03/29/2013 03/30/2013 HYDROmorphone (DILAUDID) tablet 2 mg(Linked Group 2) 2 mg, Oral, EVERY 4 HOURS PRN, Starting on Fri03/29/13 at 0948, Until Fri03/30/13 at 1304, Pain, for mild pain, May give an additional 2 mg one time if pain not relieved in 30-60 minutes., Routine 1030 (Given - Provider: Enedina Storey) ibuprofen (ADVIL;MOTRIN) tablet 600 mg 600 mg, Oral, EVERY 6 HOURS PRN, Starting on Fri03/29/13 at 0946, Until Fri03/30/13 at 1304, Pain, Maximum dose of 3200 mg from all sources in 24 hours, Routine Linked Groups Order Group 1: esomeprazole (NEXIUM) capsule 40 mg (CANCELED)Jump to med 40 mg, Oral, DAILY, First dose on Fri03/26/13 at 0900, Until Discontinued, Routine Or esomeprazole (NEXIUM) injection 40 mg (CANCELED) 40 mg, Intravenous, DAILY, First dose on Fri03/26/13 at 0900, Until Discontinued Group 2: HYDROmorphone (DILAUDID) tablet 2 mgJump to med 2 mg, Oral, EVERY 4 HOURS PRN, Starting on Fri03/29/13 at 0948, Until Fri03/30/13 at 1304, Pain, for mild pain, May give an additional 2 mg one time if pain not relieved in 30-60 minutes., Routine Or HYDROmorphone (DILAUDID) tablet 4 mg (CANCELED) 4 mg, Oral, EVERY 4 HOURS PRN, Starting on Fri03/29/13 at 0948, Until Fri03/30/13 at 1304, Pain, for moderate pain, May give an additional 2 mg one time if pain not relieved in 30-60 minutes. , Routine Or HYDROmorphone (DILAUDID) tablet 6 mg (CANCELED) 6 mg, Oral, EVERY 4 HOURS PRN, Starting on Fri03/29/13 at 0948, Until Fri03/30/13 at 1304, Pain, for severe pain, May give an additional 2 mg one time if pain not relieved in 30-60 minutes. , Routine documented in this encounter Care Teams Hi Lo Driver Relationship Specialty Start Date End Date Lisa Roberts MD [address] [place] [address] PCP - General 05/24/11 documented as of this encounter
--- OUTSIDE RECORDS SUMMARY | 2023-12-15 15:48 | XMS_ITS | Encounter Summary ---
Author Organization [facility] Address [facility] [place] [address] Care Team Providers Care Prison Teacher Name Role Phone Lisa Mayorga MD Primary Care Provider [phone] Reason for Visit * Reason Comments Follow-up staple removal and a ssessment of Ileostomy Encounter Details Date Type Department Care Team (Late st Contact Info) Description 04/07/2013 11:00 AM EST Office [place] [phone] Attention to ileostomy (Primary Dx); Ulcerative colitis Social History Tobacco Use Types Packs/Day Years [...] Sign Reading Time Taken Comments Blood Pressure 121/77 04/07/2013 11:21 AM EST Pulse 90 04/07/2013 11:21 AM EST Temperature 36.8 ??C (98.2 ??F) 04/07/2013 11:[address] Respiratory Rate 16 04/07/2013 11:21 AM EST Oxygen Saturation 97% 04/07/2013 11:21 AM EST Inhaled Oxygen Concentration - - Weight 85.4 kg (188 lb 3.2 oz) 04/07/2013 11:21 AM EST Height - - Body Mass Index 27 03/24/2013 3:45 AM EDT documented in this encounter Progress Notes * Ora Hernández - 04/07/2013 12:50 PM EST Post op Clinic Visit Diagnosis: Hospital Problems as of 04/07/2013 None Problem List as of 04/07/2013 Tremor Ulcerative (chronic) enterocolitis Asthma Depression RESOLVED: Atrial fibrillation (irregular heartbeat) Atrial fibrillation (irregular heartbeat) Surgery/Date: 03/23/13, abd colectomy, Ileostomy and Royal's pouch D/C Date: 03/30/13 VNA/Rehab Facility: pt refused Reason for Visit: staple removal and assessment of Ileostomy and adjustment to Ostomy Supplies: wearing one piece Activelife pouch since d/, changed to 2 piece today, see below Supplies Ordered/Vendor:pt will call his Insurance to ask for preferred vendor, gave him some ideastoday. Samples Ordered: [facility] at time of d/c. Patient Teaching/Follow-up:Pt here with his today and when I asked how he was doing, she said angry and he said my body has been telling me since the day after my surgery, I don't feel right,something is wrong. He says I wish I hadn't had the surgery. He tells me that nobody told me that I would be leaking stuff out my bottom. He has had the urge to pass something via his rectum buthas ignored it because he was afraid of doing harm. I jeaneth him a picture of his GI anatomy and explained the rectal stump/Royal's pouch, and that he should sit and pass the mucous when he gets theurge. He denies any pain in his rectum, no bloody discharge but mucous has come out onto his underwear. I told him if he passes the mucous when he gets the urge, he may not leak as much or any. He had the totals for urine and Ileostomy effluent on paper. His urine output has been >1500 cc/d and Ileostomy was >1500 cc x 2 since home but the past 3 days has been <1250 cc. He states he is taking Metamucil bid, a.m and hs. His consistency is mushy except sometimes overnight gets a bit moreliquid. His appetite is good, he is eating well and drinking tons. He drinks mostly Gatorade and I told him that he could drink water and 1/2 Gatorade and water, particularly since his effluent is thickening. His incision looks good, slight redness at the lower 1/3 but no induration and no drg. Nichole CASTRO removed his Sedrick and steri stripped his incision and I finished this, once I removed his Ileostomy pouch. Pt does seem angry and upset that he had the surgery. He states he sees his pills come out with the stool. I wonder if he is absorbing some. He is on Paxil and if he is not absorbing this, wonder if this is reason for mood swing. Did not get to speak to separately to get her opinion on how pt doing at home. One of pt's frustration is the flatus that he has to empty from his pouch. I trialed a Surfit 2 1/4 Large Moldable wafer (#[id number]) and the newest Surfit pouch with filter#[id number]. This fit nicely now but I told him to only order once box because he may soon fit into theMedium Moldable wafer and pouch. His stoma is red and viable, he did have a separation of the mucocu taneous junction along the superior aspect. There is no tracking, wound or induration here, just some slough tissue. I trimmed away a small bit of this and some sedrick that were at this site. He is not pleased with the location of his stoma now either. When I pre op sited him I had marked 2 sites but this one was the #1 site, as I thought he would prefer the lower site. He says it looked okay before surgery but when the swelling went down things changed. Now the site is right at his belt line. He is wearing sweat pants today. I enc him to wear his jeans in the next visit and we could look at this. It may work best to wear his pouch sideways. He is to RTC on 05/[address] Esparza and myself. I have enc he and his to call if develops new pain, nausea, fever/chills, change in appearance of his incision, drg of incision, etc. I did tell him that he no longer has to measure his urine or Ileostomy output unless he begins having increased amount of liquid stool. He is not taking anypain medication. documented in this encounter Plan of Treatment Not on file documented as of this encounter Visit Diagnoses Diagnosis Attention to ileostomy- Primary Ulcerative colitis Ulcerative colitis, unspecified documented in this encounter Care Teams Prison Teacher Relationship Specialty Start Date End Date Lisa Mayorga MD [address] [place] [address] PCP - General 05/24/11 documented as of this encounter
--- OUTSIDE RECORDS SUMMARY | 2023-12-15 15:48 | XMS_ITS | Encounter Summary ---
Author Organization [facility] Address [facility] [place] [address] Care Team Providers Care Structural Mill Supervisor Name Role Phone Lisa Mayorga MD Primary Care Provider [phone] Reason for Visit * Reason Comments Cyst right hand Trigger Finger thumbs left worse th an right Encounter Details Date Type Department Care Team (Late st Contact Info) Description 03/16/2014 1:35 PM EDT Office [place] [phone] Vinh Barrett MD [facility] [place] [address] Skin lesion of hand (Primary Dx); Trigger thumb of both thumbs Discharge Disposition: Home Social History Tobacco Use [...] Sign Reading Time Taken Comments Blood Pressure 127/82 03/16/2014 2:01 PM EDT Pulse 83 03/16/2014 2:01 PM EDT Temperature - - Respiratory Rate 16 03/16/2014 2:01 PM EDT Oxygen Saturation - - Inhaled Oxygen Concentration - - Weight - - Height - - Body Mass Index - - documented in this encounter Progress Notes * Maury Petty PA - 03/16/2014 3:55 PM EDT Mr. Argueta is a very pleasant gentleman 44 years old right hand dominant, followed by Dr. Lisa Mayorga for primary care who presents for evaluation of a bilateral hand complaint; first, is a mass to his right palm that has been present for greater than one year without change in size. He thought this was a callus and had attempted trimming this with fingernail clippers. When that was unsuccessful, he tried to drain it with a needle and fortunately did not incur any infection, but was unable to have any drainage or resolution. He also complains of bilateral trigger thumbs. 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 He denies diabetes, thyroid disease, reflux, or seizure disorder. He does not smoke or drink. HE HAS NO MEDICATION ALLERGIES. He is otherwise generally healthy and active. In regards to his triggering, it does bother him at night. His thumbs trigger throughout the day. He has not had any therapy, splinting, or injections for this. He did have x-rays done today, those are reviewed below. This is becoming more bothersome both the triggering and the mass in his right palm and it is making more difficult to hold tools or do day-to-day chores about his house. Chief Complaint Patient presents with ??? Cyst right hand ??? Trigger Finger thumbs left worse than right Carpal Tunnel/Trigger Digit Grid given: yes This problem does interfere/but does not prevent ADL's . (Dressing, Eating, Ambulating, Toileting and Hygiene) or IADL's (Shopping, Housekeeping, Accounting, Food preparation and Transportation) Current Outpatient Prescriptions on File Prior to Visit Medication Sig Dispense Refill ??? Ostomy Supplies Powd Convatec Stomahesive Powder #87215 Apply dusting of powder on irritated or reddened skin at time of pouch change. Dust excess away andseal with skin prep 1 Bottle 4 ??? Ostomy Supplies 2 1/4 Misc Convatec Surfit 2 1/4 Large Moldable Wafer #[id number] 1 each 12 ??? Ostomy Supplies Misc Convatec Surfit 2 1/4 drainable pouch #[id number] 1 each 12 ? ? Ostomy Supplies Swab [employer] #[id number] Box of Nosting skin Preps, apply after brushed dusting of powder from your skin. Allow to dry before applying wafer. 1 each 4 ??? fluticasone-salmeterol (ADVAIR) 250-50 mcg/dose diskus inhaler Inhale 1 puff into the lungs 2 times daily. ??? albuterol (PROVENTIL HFA;VENTOLIN HFA) 90 mcg/actuation inhaler Inhale 2 puffs into the lungs 4times daily as needed. Use with spacer ??? montelukast (SINGULAIR) 10 mg tablet Take 10 mg by mouth daily. ??? hydrocortisone (CORTIFOAM) 10 % (80 mg) rectal foam Place 1 applicator rectally nightly. 15 g 0 ??? lisinopril (PRINIVIL;ZESTRIL) 10 mg tablet Take 1 tablet by mouth daily. 30 tablet 3 ??? psyllium 6 gram packet Take 1 packet by mouth 2 times daily. 30 each 6 ??? PARoxetine (PAXIL) 40 mg tablet Take 40 mg by mouth every morning. No current facility-administered medications on file prior to visit. No Known Allergies Patient Active Problem List Diagnosis Code ??? Tremor 781.0 ??? Ulcerative (chronic) enterocolitis 556.0 ??? Asthma 493.90 ??? Depression 311 ??? Atrial fibrillation 427.31 ??? Aguiar lesion of right hand 709.9 ??? Trigger thumb of both thumbs 727.03 Past Surgical History Procedure Date ??? Colonoscopy, biopsy 12/24/2011 COLONOSCOPY FLEXIBLE, WITH BX performed by ANDREW BRADLEY at [facility] ENDOSCOPY ??? Colonoscopy, diagnostic 01/11/2013 COLONOSCOPY, DIAGNOSTIC performed by Johnathon Esparza MD at [facility] ENDOSCOPY ??? Colonoscopy, biopsy 01/11/2013 COLONOSCOPY FLEXIBLE, WITH BX performed by Johnathon Esparza MD at [facility] ENDOSCOPY ??? Removal colon/ileostomy 03/23/2013 @COLECTOMY, TOTAL WITH ILEOSTOMY performed by Johnathon Esparza MD at [facility] MAIN OR History Social History ??? Marital Status: Spouse Name: N/A Number of Children: N/A ??? Years of Education: N/A Occupational History ??? Not on file. Social History Main Topics ??? Smoking status: Former Smoker -- 1.0 packs/day for 10 years Types: Cigarettes Quit date: 04/02/2007 ??? Smokeless tobacco: Never Used ??? Alcohol Use: No ??? Drug Use: No ??? Sexually Active: Yes -- Female partner(s) Control/ Protection: Surgical Other Topics Concern ??? Not on file Social History Narrative He was born in [place], and graduated from high school. 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 No known occupational exposures. He is , and recently moved up to [place] last year. Family History Problem Relation Age of Onset ??? Diabetes Father Denies fever, chills, nausea, vomiting, vision change, shortness of breath, chest pain, vision changes, headaches, bowel or bladder problem, ear, nose, sinus problem, neuro or psychiatric, or endocrine disorder not addressed above. Filed Vitals: 03/16/14 1401 BP: 127/82 Pulse: 83 Resp: 16 Physical examination reveals an awake, alert, and oriented gentleman in no acute distress, resting comfortably in the exam room, accompanied by his . His forearms, wrists, and hands are grossly benign. His right palm is significant for a lesion in the mid palm that is approximately 2 cm x 1 cm without any obvious drainage or pointing. It is discretely tender. It is more oblong than round. It is not fluctuant or boggy. He is able to demonstrate integrity of the FDS, FDP, EPL, and FPL. He is also triggering over the A1 jeremy of the right thumb. In regards to his bilateral thumbs, he is triggering over the left thumb as well, otherwise, and this causes discomfort and it is easily reduced in the exam room. Imaging studies are reassuring. No fracture, subluxation, dislocation, or other arthropathy is noted. ASSESSMENT: Right palm mass, concern for possible foreign body versus other tumor. PLAN: I would like to check an ultrasound of the palmar mass to rule out foreign body and I have offered Mr. Argueta bilateral trigger thumb injections today, which he endorsed. I discussed this case with Dr. Barrett, who looked in on the patient and agrees with above. Please see my injection note below. He tolerated that well and we will see him back after his upcoming ultrasound and in six weeks for possible repeat trigger thumb injection. and Mrs. Argueta's questions were otherwise solicited and answered. Mic DENIES ALLERGIES TO LIDOCAINE,CELESTONE, KENALOG or BETADINE. The patient understands that there are risks to include infection, bleeding, skin thinning, skin blanching, incomplete to no relief of symptoms, theoretical risk of tendon rupture, repeated injections, transient elevation of bloodglucose, and postinjection flare. The patient did elect to proceed. The patient's bilateral thumbs was prepped over the volar proximal aspect consistent with the level of the A-1 jeremy with Betadineswabs x3. At that point, a suspension of 1 mL of 1% lidocaine without epinephrine, and 1 mL of betamethasone x 2 was drawn up. Topical anesthesia was obtained using ethyl chloride and the needle was advanced in crease at the level of the volar MCP joint without difficulty. Suspension flowed freely into the sheath and 2cc's were injected in this manner. When complete the needle was withdrawn and the procedure was repeated in the contralateral thumb. The patient tolerated this quite well. The hand was then cleansed. A Band-Aid was applied. At this point, I would like to have him follow up with me on an as needed basis in the future. Mic understands and endorses our plan. Questions today are answered and the patient understands that when the lidocaine wears off, there may be an increase in finger discomfort. I have suggested taking Advil, Aleve, Tylenol, or other type of pain reliever that is most suited for relief. The patient understands and will follow up. documented in this encounter Plan of Treatment Not on file documented as of this encounter Visit Diagnoses Diagnosis Skin lesion of hand- Primary Unspecified disorder of skin and subcutaneous tissue Trigger thumb of both thumbs documented in this encounter Administered Medications Inactive Administered Medications - up to 3 most recent administrations Medication Order MAR Action Action Date Dose Rate Site betamethasone acetate-betamethasone sodium phosphate (CELESTONE) injection 6 mg 6 mg, Other, ONCE, 1 dose, On Fri03/16/14 at 1600, Routine Given 03/16/2014 3:52 PM EDT 6 mg betamethasone acetate-betamethasone sodium phosphate (CELESTONE) injection 6 mg 6 mg, Other, ONCE, 1 dose, On Fri03/16/14 at 1600, Routine Given 03/16/2014 3:52 PM EDT 6 mg lidocaine (XYLOCAINE) 10 mg/mL (1 %) injection 10 mg 10 mg, Subcutaneous, ONCE, 1 dose, On Fri03/16/14 at 1600, Routine Given 03/16/2014 3:52 PM EDT 10 mg lidocaine (XYLOCAINE) 10 mg/mL (1 %) injection 10 mg 10 mg, Subcutaneous, ONCE, 1 dose, On Fri03/16/14 at 1600, Routine Given 03/16/2014 3:52 PM EDT 10 mg documented in this encounter Care Teams Structural Mill Supervisor Relationship Specialty Start Date End Date Lisa Mayorga MD [address] [place] [address] PCP - General 05/24/11 documented as of this encounter
--- OUTSIDE RECORDS SUMMARY | 2023-12-15 15:48 | XMS_ITS | Encounter Summary ---
Author Organization [facility] Address [facility] [place] [address] Care Team Providers Care Metal Cans Supervisor Name Role Phone Lisa Mayorga MD Primary Care Provider [phone] Encounter Details Date Type Department Care Team (Latest Contact Info) Description 02/10/2019 Interpretation Only Cardiology at [address] [address] Russel Butt MD [facility] [place] [address] Atrial fibrillation, unspecified type Social History Tobacco Use Types Packs/Day [...] as of this encounter Visit Diagnoses Diagnosis Atrial fibrillation, unspecified type documented in this encounter Care Teams Metal Cans Supervisor Relationship Specialty Start Date End Date Lisa Mayorga MD [address] [place] [address] PCP - General 05/24/11 documented as of this encounter
--- OUTSIDE RECORDS SUMMARY | 2023-12-15 15:48 | XMS_ITS | Encounter Summary ---
[place] [address] Care Team Providers Care Lock Tender Name Role Phone Lisa Mayorga MD Primary Care Provider [phone] Encounter Details Date Type Department Care Team (Late st Contact Info) Description 09/22/2017 Orders [place] [address] Naomy Fuentes PA [facility] [place] [address] Aguiar lesion of right hand Social History Tobacco Use Types Packs/Day Years [...] as of this encounter Visit Diagnoses Diagnosis Aguiar lesion of right hand Unspecified disorder of skin and subcutaneous tissue documented in this encounter Care Teams Lock Tender Relationship Specialty Start Date End Date Lisa Mayorga MD [address] [place] [address] PCP - General 05/24/11 documented as of this encounter
--- OUTSIDE RECORDS SUMMARY | 2023-12-15 15:48 | XMS_ITS | Encounter Summary ---
Author Organization [facility] Address [facility] [place] [address] Care Team Providers Care Mold Bunch Trimmer Name Role Phone Lisa Mayorga MD Primary Care Provider [phone] Reason for Visit * Reason Onset Date Comments Appointment 04/21/2014 Encounter Details Date Type Department Care Team (Late st Contact Info) Description 04/21/2014 Telephone [place] [phone] Vinh Barrett MD [facility] [place] [address] Appointment Social History Tobacco Use Types Packs/Day Years [...] encounter Miscellaneous Notes * Telephone Encounter - Jojo Bess - 04/26/2014 4:00 PM EST Spoke to patient. He was driving and will call us 04/27/14 to reschedule his appointments: Ultrasound and Nena appointments. * Telephone Encounter - Garima Flowers - 04/21/2014 1:52 PM EST LM#1 to reschedule appt with Dr martin Barrett appt 04/20 documented in this encounter Plan of Treatment Not on file documented as of this encounter Visit Diagnoses Not on filedocumented in this encounter Care Teams Mold Bunch Trimmer Relationship Specialty Start Date End Date Lisa Mayorga MD [address] [place] [address] PCP - General 05/24/11 documented as of this encounter
--- OUTSIDE RECORDS SUMMARY | 2023-12-15 15:48 | XMS_ITS | Encounter Summary ---
Author Organization [facility] Address [facility] [place] [address] Care Team Providers Care Fish Warden Name Role Phone Lisa Mayorga MD Primary Care Provider [phone] Encounter Details Date Type Department Care Team (Latest Contact Info) Description 09/18/2017 2:30 PM EDT - 09/18/2017 11:59 PM EDT Hospital Encounter XRay at [address] [place] [address] Vinh Barrett MD [facility] [place] [address] Other cyst of bone, right hand Discharge Disposition: Home Social History Tobacco Use [...] Sig Dispensed Refills Start Date End Date Ostomy Supplies PowdIndications:Atten tion to ileostomy Convatec Stomahesive Powder #86363 Apply dusting of powder on irritated or reddened skin at time of pouch change. Dust excess away and seal with skin prep 1 Bottle 4 04/14/2013 Ostomy Supplies 2 1/ MiscIndications:Atten tion to ileostomy Convatec Surfit 2 1/4 Large Moldable Wafer #[id number] 1 each 12 04/14/2013 Ostomy Supplies MiscIndications:Atten tion to ileostomy Convate Surfit 2 06/05 drainable pouch #[id number] 1 each 12 04/14/2013 Ostomy Supplies SwabIndications:Atten tion to ileostomy [employer] #[id number] Box of Nosting skin Preps, apply after brushed dusting of powder from your skin. Allow to dry before applying wafer. 1 each 4 04/14/2013 albuterol (PROVENTIL HFA;VENTOLIN HFA) 90 mcg/actuation inhaler Inhale 2 puffs into the lungs 4 times daily as needed. Use with spacer oxyCODONE (ROXICODONE) 5 mg Tablet Take 1 tablet by mouth every 4 hours as needed. 20 tablet 10/07/2017 02/22/2019 fluticasone-salmetero l (ADVAIR) 250-50 mcg/dose diskus inhaler Inhale 1 puff into the lungs 2 times daily. 02/22/2019 documented as of this encounter Plan of Treatment Not on file documented as of this encounter Procedures Procedure Name Priority Date/Time Associated Diagnosis Comments XR HAND MIN 3 VIEWS RIGHT Routine 09/18/2017 2:48 PM EDT Other cyst of bone, right hand documented in this encounter Results * XR Hand Min 3 views Right (Generic) (09/18/2017 2:48 PM EDT) Anatomical Region Laterality Modality Hand Right Digital Radiogra phy Narrative 09/18/2017 3:06 PM EDT EXAMINATION: XR HAND MIN 3 VIEWS RIGHT (GENERIC) CLINICAL HISTORY: Cyst on palm of right hand TECHNIQUE: 3 views COMPARISON: Radiographs from March 2014. FINDINGS: Bones: No fracture is present. Joints: No dislocation is seen. Soft tissue: Normal. The reported cyst is not well seen on the radiograph and does not contain calcifications or associated with bone destruction. Impression No fracture or dislocation Procedure Note Jessica Brantley MD - 09/18/2017 EXAMINATION: XR HAND MIN 3 VIEWS RIGHT (GENERIC) CLINICAL HISTORY: Cyst on palm of right hand TECHNIQUE: 3 views COMPARISON: Radiographs from March 2014. FINDINGS: Bones: No fracture is present. Joints: No dislocation is seen. Soft tissue: Normal. The reported cyst is not well seen on the radiographand does not contain calcifications or associated with bone destruction. Impression No fracture or dislocation Vinh Barrett MD IMG DX ORDERABLES documented in this encounter Visit Diagnoses Diagnosis Other cyst of bone, right hand documented in this encounter Care Teams Fish Warden Relationship Specialty Start Date End Date Lisa Mayorga MD [address] [place] [address] PCP - General 05/24/11 documented as of this encounter
--- OUTSIDE RECORDS SUMMARY | 2023-12-15 15:48 | XMS_ITS | Encounter Summary ---
Author Organization [facility] Address [facility] [place] [address] Care Team Providers Care Groundskeeper Porter Name Role Phone Lisa Mayorga MD Primary Care Provider [phone] Reason for Visit * Reason Comments Pre-op Exam R hand tumor exc DOS : 10/07/17 Encounter Details Date Type Department Care Team (Late st Contact Info) Description 10/06/2017 11:45 AM EDT Office [place] [id number] Vinh Barrett MD [facility] [address] [place] [address] Aguiar lesion of right hand Social History [...] Sign Reading Time Taken Comments Blood Pressure 138/85 10/06/2017 11:36 AM EDT Pulse 72 10/06/2017 11:36 AM EDT Temperature - - Respiratory Rate - - Oxygen Saturation - - Inhaled Oxygen Concentration - - Weight 85.7 kg (189 lb) 10/06/2017 11:36 AM EDT stated Height 177.8 cm (5' 10) 10/06/2017 11:36 AM EDT stated Body Mass Index 27.12 10/06/2017 11:36 AM EDT documented in this encounter Progress Notes * Lauren Guerra RN - 10/06/2017 11:45 AM EDT Pre Op Nursing Assessment and Teaching Scheduled date of procedure: 10/07/2017 Side: right Site: hand Procedure: hand mass removal Written material given: yes Patient educated on importance of staying healthy and maintaining skin integrity, especially of affected arm pre-op. Patient will inform us of any skin rashes, breaks in skin or illnesses prior to surgery. Discussed practicing ADL???s with non-operative arm. We are operating on the right Pt is right hand dominant Does pt have use of contralateral extremity, such that they can perform ADLs? Yes Is pt able to rise from chair without use of operative arm? Yes Lives alone? Unknown Discussed no ASA or NSAIDS 7 days prior to surgery. May take Tylenol if needed. General post op guidelines discussed including hydration, nutrition, constipation, dressing changes, ice. A review of typically prescribed post op pain medication and suggestions for taking and tapering them in a methodical fashion was undertaken. Is pt currently on chronic narcotics? No For the operative problem? No Hibiclens soap instructions given Questions solicited and answered. Pt knows to call with any additional questions or concerns, Patient advised to read post-op instructions from day of surgery for specific recommendations aftersurgery. Patient declined to sign narcotic consent or fill out risk tool assessment stating they (narcotics) are a waste of time. He is in agreement with just using Tylenol for post op pain management. * Vinh Barrett MD - 10/06/2017 11:45 AM EDT Mic Argueta presents for preoperative visit. He scheduled to undergo excision of a right hand mass tomorrow. The mass has been present many years and it is uncomfortable when he grasps. The mass measures nearly 2 centimeters in diameter and is quite prominent. Clinically it may be a foreign body granuloma, an epidermoid inclusion cyst, nerve sheath tumor or something entirely unexpected. I did tell him that we could further evaluate this with an ultrasound but he would prefer not to doso. I did tell him that that excisional biopsy of the mass has potential risks including recurrence, infection, nerve injury, and delayed wound healing. He understands these issues. His questions were solicited and answered and he wishes to proceed with excisional biopsy of this mass tomorrow. documented in this encounter Plan of Treatment Not on file documented as of this encounter Visit Diagnoses Diagnosis Aguiar lesion of right hand Unspecified disorder of skin and subcutaneous tissue documented in this encounter Care Teams Groundskeeper Porter Relationship Specialty Start Date End Date Lisa Mayorga MD [address] [place] [address] PCP - General 05/24/11 documented as of this encounter
--- OUTSIDE RECORDS SUMMARY | 2023-12-15 15:48 | XMS_ITS | Encounter Summary ---
Author [facility] [place] [address] Care Team Providers Care Senior Compensation Analyst Name Role Phone Lisa Mayorga MD Primary Care Provider [phone] Reason for Visit * Reason Onset Date Comments Other 04/13/2013 prescriptions fo r ostomy supplies Encounter Details Date Type Department Care Team (Late st Contact Info) Description 04/13/2013 Telephone [place] [phone] Ashli Cantor, RN Other (prescriptions for ostomy supplies) Social History Tobacco Use Types Packs/Day Years [...] Telephone Encounter - Ashli Cantor RN - 04/13/2013 4:30 PM EST Mic called the clinic today asking for his prescriptions/notes for ileostomy supplies be faxed to [employer] in [facility]. The fax number is [phone]. This information will bepassed on to Ora Hernández. documented in this encounter Plan of Treatment Not on file documented as of this encounter Visit Diagnoses Not on filedocumented in this encounter Care Teams Senior Compensation Analyst Relationship Specialty Start Date End Date Lisa Mayorga MD [address] [place] [address] PCP - General 05/24/11 documented as of this encounter
--- OUTSIDE RECORDS SUMMARY | 2023-12-15 15:48 | XMS_ITS | Encounter Summary ---
Author Organization [facility] [place] [address] Care Team Providers Care Inspector Repairer Name Role Phone Lisa Mayorga MD Primary Care Provider [phone] Reason for Visit * Auth/Cert Specialty Diagnoses / Procedures Referred By Sheba childs Referred To Contact Diagnoses Right palmar hand mass Procedures PRO EXCISE SOFT TISSUE LESION HAND SUBCUT EXCISION TUMOR OR VASC MAL, HAND OR FINGER, SUBQ, <1.5 CM (WRVU 3.96) Referral ID Status Reason Start Date Expiration Date Visits Re quested Visits Authorized [id number] 1 1 Encounter Details Date Type Department Care Team (Late st Contact Info) Description 10/07/2017 11:45 AM EDT - 10/07/2017 1:00 PM EDT Surgery [place] [address] Tiffany Barrett MD [facility] [place] [address] EXCISION, TUMOR, SOFT TISSUE OR VASCULAR MALFORMATION OF HAND OR FINGER, SUBFASCIAL (EG. INTRAMUSCULAR); 1.5 CM OR GREATER (WRVU 7.13) Social History Tobacco Use Types Packs/Day Years [...] Sign Reading Time Taken Comments Blood Pressure 124/85 10/07/2017 10:56 AM EDT Pulse 75 10/07/2017 10:56 AM EDT Temperature 36.8 ??C (98.2 ??F) 10/07/2017 10:56 AM E DT Respiratory Rate 18 10/07/2017 10:56 AM EDT Oxygen Saturation 100% 10/07/2017 10:56 AM EDT Inhaled Oxygen Concentration - - Weight 86.2 kg (190 lb) 10/07/2017 10:56 AM EDT Height 177.8 cm (5' 10) 10/07/2017 10:56 AM EDT Body Mass Index 27.26 10/07/2017 10:56 AM EDT documented in this encounter Discharge Instructions * Discharge Instructions* Aylin Sykes RN - 10/07/2017 1:19 PM EDT General Anesthesia Discharge Instructions Go home and rest. You may be sleepy for several hours. Take it easy as sudden position changes may cause nausea and/or dizziness. Use caution on stairs. Do not smoke if you are alone. Follow a light to regular diet as tolerated today. If nausea occurs, start with clear liquids, and progress slowly to a regular diet. Do not drive, operate machinery, drink alcoholic beverages or make any legal decisions after havinggeneral anesthesia. The medications given change your reaction time and alter your judgement. IV site -- slight redness is normal, you can use warm compresses. If tenderness and redness increases or foul drainage occurs, please contact your M.D. Patients who have had endotracheal tubes/LMA (tubes used by the anesthesia staff to ensure a safe airway during your operation) may have a sore throat. This is normal and cold liquids or soothing lozenges will help ease this discomfort. Narcotic pain medications can cause constipation, please ask the surgeons office what they recommend for prevention of this. Some non-pharmaceutical means of constipation prevention include increasing intake of fluids, eating more fruits and vegetables as well as fruit juices. If you are uncomfortable and/or unable to urinate within 8 hours of discharge and it is before 5 pm, call your physician. If it is after 5pm go to the closest emergency room or call the hospital threshing operator at [phone] and ask for physician regional coordinator covering for your physician. Questions or problems after 5pm or on a weekend: Call the [facility] threshing operator at and ask for the physician regional coordinator covering for your doctor. At 11:10 AM you received 1000 mg of acetaminophen- Your next dose should not be taken before 8 hours have passed. Next dose not before- 7:10 PM You should not take more than a total of 3000 mg of acetaminophen in a 24 hour period. * Patient Instructions* Greg Dial - 10/07/2017 1:16 PM EDT Activity: Non weight bearing right upper extremity, sling for comfort. Be careful on stairs, as youmay be unsteady on your feet. Diet: You may eat a regular diet as tolerated. Driving: No, not until you are cleared to do so by your Orthopedic clinic. Ideally you should not drive while you are on narcotic pain meds as these can affect judgement and reaction time. Call your Surgeon with any questions. Medications: 1. The pain medication you are on can cause constipation so increase your intake of fluids and fiber while you are on them. You can also take an fzvt-[id number] stool softener, colace or senna, to facilitate a bowel movement. 2. If you need a renewal on your narcotic pain medication, you need to give the Orthopedic clinic enough time to process your request. This can take up to three days, so plan accordingly. 3. You may also take NSAID's (Advil, ibuprofen, aleve, etc) 4. Tylenol/Acetaminophen should be taken in conjunction with the narcotics if you are able to. Follow-up: As below, or in 10-14 days Wound: Keep splint/dressing on until follow-up. Keep splint/dressing clean and dry. Call your doctor (#[phone]) if: 1. You have a fever > 101.5 or experience chills ??? Increased discharge from the incision ??? Any redness or swelling around the incision ??? Increased pain or change in the pain that is not controlled by your pain meds WHERE TO CALL WITH QUESTIONS [facility] Ask for the resident regional coordinator for your provider [facility] (7:00am - 5:00pm) Future Appointments Date Time Provider Department Center 10/20/2017 5:00 PM Tiffany Barrett MD [address] documented in this encounter Medications at Time of Discharge Medication Sig Dispensed Refills Start Date End Date Ostomy Supplies PowdIndications:Atten tion to ileostomy Convate Stomahesive Powder #23457 Apply dusting of powder on irritated or reddened skin at time of pouch change. Dust excess away and seal with skin prep 1 Bottle 4 04/14/2013 Ostomy Supplies 2 1 MiscIndications:Atten tion to ileostomy Convatec Surfit 2 1 Large Moldable Wafer #[id number] 1 each 12 04/14/2013 Ostomy Supplies MiscIndications:Atten tion to ileostomy Convatec Surfit 2 1/ drainable pouch #[id number] 1 each 12 04/14/2013 Ostomy Supplies SwabIndications:Atten tion to ileostomy [employer] #[id number] Box of Nosting skin Preps, apply after [...] daily. 02/22/2019 documented as of this encounter Progress Notes * Aylin Sykes RN - 10/07/2017 2:03 PM EDT This note also relates to the following rows which could not be included: Heart Rate from SPO2 - Cannot attach notes to unvalidated device data MAP (NBP) - Cannot attach notes to unvalidated device data Discharge instructions and medications reviewed with patient and escort. All questions answered andwritten copy sent home with patient. * Aylin Sykes RN - 10/07/2017 1:40 PM EDT This note also relates to the following rows which could not be included: Heart Rate - Cannot attach notes to unvalidated device data Heart Rate from SPO2 - Cannot attach notes to unvalidated device data SpO2 - Cannot attach notes to unvalidated device data documented in this encounter H&P Notes * Tiffany Barrett MD - 10/07/2017 12:04 PM EDT Patient Name: Mic Argueta Jr. Patient Age: 47 y.o. Birthdate: 1970 Admit date: 10/07/2017 Attending Physician: Tiffany Barrett MD I interviewed and examined Mic Argueta Jr.. There have been no apparent interval changes in his health status since the most recent history and physical was done. TIFFANY BARRETT MD * Tiffany Barrett MD - 10/06/2017 9:11 PM EDT Patient Name: Mic Argueta Jr. Patient Age: 47 y.o. Birthdate: 1970 Admit date: (Not on file) Attending Physician: Tiffany Barrett MD See scanned document for pre-procedural H&P completed on 10/06/17. documented in this encounter Miscellaneous Notes * Op Note - Tiffany Barrett MD - 10/07/2017 1:24 PM EDT [facility] Operative Note Patient Name: Mic Argueta Jr. : [id number] MR#: [id number] Case Date: 10/07/2017 Surgeon: Surgeon(s) and Role: * Greg Dial MD - Resident-Lacquer Mixer * Tiffany Barrett MD - Primary Preoperative diagnosis: Right palmar hand mass Postoperative diagnosis: Right palmar hand mass Procedure: Excisional biopsy right palmar hand mass Anesthesia: General/local Operative indication: The patient is a 47-year-old male with an expanding mass on the palmar surface of his right hand. He has had this for several years and it is becoming larger and more painful. He was brought to the operating room for excisional biopsy of the mass. Summary of procedure: After 2 g of intravenous cefazolin were administered and general anesthesia were performed, the patient's right upper extremity was prepped with a Hibiclens scrub and a ChloraPrep. His right upper extremity was draped in usual sterile fashion. A preoperative timeout was performed as per [facility] protocol. His right arm was then exsanguinated with an Esmarch bandage and a brachial tourniquet was inflated to 250 mmHg An oblique incision was made over the mass through an existing crease in his palm. A small area over the mass appeared to point through the skin and it was excised as an ellipse to include this pieceof skin as part of the skin incision. This skin fragment later became detached from the mass. With blunt dissection, I was able to trace the mass and found that it penetrated deep through the palmar fascia. With blunt and sharp dissection I was able to remove all the fascial attachments of the massand I was also able to identify the radial digital artery to the index finger which was protected. The mass was teased free of its soft tissue attachments with its capsule still intact. It was quite long and measured between 2 and 3 cm in length. The proximal tail of the mass penetrated deep to thepalmar fascia as did some of the main body of the mass. It appeared to have been removed in its entirety and no residual mass was seen within the hand. This was sent to pathology as a specimen. Adjacent to the mass in the subcutaneous tissues appeared to be some wooden material and this was sharply excised from the fat in which it was found. No residual foreign body was seen in the wound atthis point. The site was now copiously irrigated. The skin was closed with 4-0 nylon suture. The incision site was injected with 5 cc of 0.25% bupivacaine with epinephrine. A sterile soft dressing was applied and the tourniquet was now released with a total tourniquet time of 19 minutes. Alldigits rapidly became pink and warm with brisk capillary refill. He was then extubated and transferred to the recovery room in stable condition. Estimated blood loss was none. IV fluid replacement was 500 cc of crystalloid. He tolerated the procedure well without apparent complications. Attestation: Case Date: 10/07/2017 I was present and I participated during the entire procedure. TIFFANY BARRETT MD 10/07/2017 * Brief Op Note - Tiffany Barrett MD - 10/07/2017 1:23 PM EDT Brief Operative Note Patient Name: Mic Argueta Jr. : [id number] MR#: [id number] Case Date: 10/07/2017 Surgeon: Surgeon(s) and Role: * Greg Dial MD - Resident-Lacquer Mixer * Tiffany Barrett MD - Primary Preoperative diagnosis: Right palmar hand mass Postoperative diagnosis: Right palmar hand mass Procedure(s) (LRB): EXCISION, TUMOR, SOFT TISSUE OR VASCULAR MALFORMATION OF HAND OR FINGER, SUBFASCIAL (EG. INTRAMUSCULAR); 1.5 CM OR GREATER (WRVU 7.13) (Right) Anesthesia: General/local Complications: None Intake: 600cc crystalloid Output: Estimated Blood Loss: * No values recorded between 10/07/2017 12:49 PM and 10/07/2017 1:13 PM * Drains: None Specimens removed during surgery: Order Name Source Comment Collection Info Order Time SPECIMEN TO PATHOLOGY Excision Hand Mass R hand mass excision 10/07/2017 1:06 PM Number of tissue samples (in container) 1 Time specimen removed from patient: 1:06 PM Disposition: awakened from anesthesia, extubated and taken to the recovery room in a stable condition, having suffered no apparent untoward event. Condition: doing well without problems Attestation: Case Date: 10/07/2017 I was present and I participated during the entire procedure. (Please see the Surgical Encounter Summary for any Implant and Specimen details pertinent to this patient.) documented in this encounter Plan of Treatment Not on file documented as of this encounter Procedures Procedure Name Priority Date/Time Associated Diagnosis Comments EXCIS,TUMOR,SOFT TISSUE,HAND/FINGER,PANIAGUA BFASC,>/= 1.5CM Routine 10/07/2017 1:23 PM EDT Skin lesion of hand SURGICAL PATHOLOGY REPORT Routine 10/07/2017 1:06 PM EDT SPECIMEN TO PATHOLOGY Routine 10/07/2017 1:06 PM EDT EXCISION, TUMOR, SOFT TISSUE OR VASCULAR MALFORMATION OF HAND OR FINGER, SUBFASCIAL (EG. INTRAMUSCULAR); 1.5 CM OR GREATER (WRVU 7.13) 10/07/2017 12:17 PM EDT Skin lesion of hand documented in this encounter Results * Surgical Pathology Report (10/07/2017 1:06 PM EDT) Surgical Pathology Report [id number] ? Location: [facility] The signing pathologist has (i) examined the relevant preparation(s) for the specimen(s) and (ii) rendered or confirmed the diagnosis(es). . ?Surgical Pathology DIAGNOSIS Soft tissue, right hand mass, excision: - ??EPIDERMAL INCLUSION CYST Electronically signed by: ??Dash LUU, Rodriguez Quarles Verified: ??10/09/2017 ?Dermatopatholo gist, Bone & Soft Tissue Pathologist Performed at: ??-[facility] Dept. of Pathology, [place], [place] CLINICAL INFORMATION Specimen Submitted: A - R hand mass Clinical History and Diagnosis: Right hand mass SPECIMEN PROCESSING A - Labeled/Fixative : Right hand mass, formalin. Quantity/Size: Single, 2.5 x 1.2 x 1.2 cm. Tissue Description: Nodular, cystic ortiz-white tissue. Sections/Process ing: (R1) ??ejr [facility] 10/07/2017 1:06 PM EDT Tiffany Barrett MD PATHOLOGY/CYTOLOGY O [place] Performing Organization Address [facility] Co de Phone Number [facility] [place] [address] * Specimen to Pathology (10/07/2017 1:06 PM EDT) AP Specimen 10/07/2017 1:06 PM EDT 10/07/2017 4:43 PM EDT Narrative [facility] - 10/07/2017 4:43 PM EDT Specimen requisition ordered. ??Separate Pathology report to follow Resulting Agency Comment Spec In Lab Tiffany Barrett MD PATHOLOGY/CYTOLOGY O [place] Performing Organization Address [facility] Co de Phone Number [facility] [place] [address] documented in this encounter Visit Diagnoses Diagnosis Skin lesion of hand Unspecified disorder of skin and subcutaneous tissue Skin lesion of hand Unspecified disorder of skin and subcutaneous tissue documented in this encounter Administered Medications Inactive Administered Medications - up to 3 most recent administrations Medication Order MAR Action Action Date Dose Rate Site acetaminophen (TYLENOL) tablet 1,000 mg 1,000 mg, Oral, ONCE, 1 dose, On Fri10/07/17 at 1115, Maximum dose of acetaminophen is 4000 mg from all sources in 24 hours., Day of Surgery (Day of Procedure), Routine Given 10/07/2017 11:10 AM EDT 1,000 mg BUpivacaine-EPINEPHrine 0.25 %-1:200,000 injection ONCE PRN, Starting on Fri10/07/17 at 1309, Until Fri10/07/17 at 1640, Intra-Operative (Intra-Procedure), Routine Given 10/07/2017 1:09 PM EDT 5 mLs chondroitin-sodium hyaluronate (VISCOAT) 4-3 % (40-30 mg/mL) intra-ocular injection 1 dose, Starting on Fri10/07/17 at 1055, Until Fri10/07/17 at 1640, [employer]: cabinet override gabapentin (NEURONTIN) capsule 600 mg 600 mg, Oral, ONCE, 1 dose, On Fri10/07/17 at 1115, Day of Surgery (Day of Procedure), Routine Given 10/07/2017 11:10 AM EDT 600 mg lactated Ringers infusion 1,000 mL 1,000 mL, at 100 mL/hr, Intravenous, CONTINUOUS, Starting on Fri10/07/17 at 1115, Until Fri10/07/17 at 1640, Day of Surgery (Day of Procedure) New Bag 10/07/2017 11:11 AM EDT 1,000 mLs 100 mL/hr lidocaine (XYLOCAINE) 10 mg/mL (1 %) injection 3 mg 3 mg (0.3 mL), Subcutaneous, ONCE PRN, 1 dose, Starting on Fri10/07/17 at 1053, Until Fri10/07/17 at 1640, for discomfort with PIV insertion, Day of Surgery (Day of Procedure), Routine oxyCODONE (ROXICODONE) immediate release tablet 10 mg 10 mg, Oral, EVERY 4 HOURS PRN, Starting on Fri10/07/17 at 1338, Until Fri10/07/17 at 1640, Pain, moderate pain (4-6), For moderate pain (4-6). Do not exceed 15 mg in 4 hours. If pain not relieved, call provider., PACU Recovery, Routine oxyCODONE (ROXICODONE) immediate release tablet 15 mg 15 mg, Oral, EVERY 4 HOURS PRN, Starting on Fri10/07/17 at 1338, Until Fri10/07/17 at 1640, Pain, severe pain, PACU Recovery, Routine oxyCODONE (ROXICODONE) immediate release tablet 5 mg 5 mg, Oral, EVERY 4 HOURS PRN, Starting on Fri10/07/17 at 1338, Until Fri10/07/17 at 1640, Pain, mild pain (1-3), For mild pain (1-3). Do not exceed 15 mg in 4 hours. If pain not relieved, call provider, PACU Recovery, Routine sodium chloride 0.9 % flush 5-20 mL 5-20 mL, Intravenous, EVERY 1 MIN PRN, Starting on Fri10/07/17 at 1053, Until Fri10/07/17 at 1640, flush, Flush pertains to all indwelling lines. Flush per protocol found in the job aid using the link provided on this medication record., Day of Surgery (Day of Procedure), Routine documented in this encounter Active and Recently Administered Medications Times are shown in EDT. Scheduled Medication Order 10/05/2017 10/06/2017 10/07/2017 acetaminophen (TYLENOL) tablet 1,000 mg (COMPLETED) 1,000 mg, Oral, ONCE, 1 dose, On Fri10/07/17 at 1115, Maximum dose of acetaminophen is 4000 mg from all sources in 24 hours., Day of Surgery (Day of Procedure), Routine 1110 (Given - Provid er: Theodore Briones RN) ceFAZolin (ANCEF) 2g in dextrose 5% 100 mL (COMPLETED) 2 g, Intravenous, EVERY 3 HOURS, 1 dose, First dose on Fri10/07/17 at 1115, Administer over 30 Minutes, Redose after 3 hours., Intra-Operative (Intra-Procedure), Indication for (Active or Suspected): Prophylaxis 1224 (Given - Provid er: Isidoro Melendez CRNA) gabapentin (NEURONTIN) capsule 600 mg (COMPLETED) 600 mg, Oral, ONCE, 1 dose, On Fri10/07/17 at 1115, Day of Surgery (Day of Procedure), Routine 1110 (Given - Provid er: Theodore Briones RN) Continuous Medication Order 10/05/2017 10/06/2017 10/07/2017 lactated Ringers infusion 1,000 mL 1,000 mL, at 100 mL/hr, Intravenous, CONTINUOUS, Starting on Fri10/07/17 at 1115, Until Fri10/07/17 at 1640, Day of Surgery (Day of Procedure) 1111 (New Bag - Prov ider: Theodore Briones RN)1246 (Anesthesia Volume Adjustment - Provider: Isidoro Melendez CRNA)1315 (Anesthesia Volume Adjustment - Provider: Isidoro Melendez CRNA) PRN Medication Order 10/05/2017 10/06/2017 10/07/2017 BUpivacaine-EPINEPHrine 0.25 %-1:200,000 injection (CANCELED) ONCE PRN, Starting on Fri10/07/17 at 1309, Until 10/07/17 at 1640, Intra-Operative (Intra-Procedure), Routine 1309 (Given - Provid er: Tiffany Barrett MD) HYDROmorphone (DILAUDID) injection 0.4-0.6 mg 0.4-0.6 mg, Intravenous, EVERY 5 MIN PRN, Starting on 10/07/17 at 1317, Until 10/07/17 at 1640, Pain, Give 0.4 mg every 5 minutes PRN for mild to moderate pain (1-5) Give 0.6 mg every 5 minutes PRN for moderate to severe pain (6-10). Hold for respiratory rate less than 10 per minute. Maximum dose 4 mg over one hour. If multiple pain medications are ordered, start with hydromorphone or morphine and use fentanyl for breakthrough pain., PACU Recovery, Routine lidocaine (XYLOCAINE) 10 mg/mL (1 %) injection 3 mg 3 mg (0.3 mL), Subcutaneous, ONCE PRN, 1 dose, Starting on Fri10/07/17 at 1053, Until 10/07/17 at 1640, for discomfort with PIV insertion, Day of Surgery (Day of Procedure), Routine naloxone (NARCAN) injection 0.04 mg 0.04 mg, Intravenous, EVERY 5 MIN PRN, Starting on Fri10/07/17 at 1317, Until 10/07/17 at 1640, Opioid Reversal, for respiratory rate less than 6 or unresponsive., May repeat every 5 minutes to increase respiratory rate. DO NOT exceed 0.12 mg total dose. Notify anesthesia immediately if administered., PACU Recovery, Routine ondansetron (ZOFRAN) injection 4 mg 4 mg, Intravenous, EVERY 30 MIN PRN, Starting on e 10/07/17 at 1317, Until 10/07/17 at 1640, Nausea, May repeat 4 mg once in 30 minutes. If multiple antiemetics ordered, use ondansetron first and if ineffective use prochlorperazine second and if ineffective use promethazine, PACU Recovery oxyCODONE (ROXICODONE) immediate release tablet 10 mg(Linked Group 1) 10 mg, Oral, EVERY 4 HOURS PRN, Starting on Fri10/07/17 at 1338, Until 10/07/17 at 1640, Pain, moderate pain (4-6), For moderate pain (4-6). Do not exceed 15 mg in 4 hours. If pain not relieved, call provider., PACU Recovery, Routine oxyCODONE (ROXICODONE) immediate release tablet 15 mg(Linked Group 1) 15 mg, Oral, EVERY 4 HOURS PRN, Starting on Fri10/07/17 at 1338, Until 10/07/17 at 1640, Pain, severe pain, PACU Recovery, Routine oxyCODONE (ROXICODONE) immediate release tablet 5 mg(Linked Group 1) 5 mg, Oral, EVERY 4 HOURS PRN, Starting on Fri10/07/17 at 1338, Until 10/07/17 at 1640, Pain, mild pain (1-3), For mild pain (1-3). Do not exceed 15 mg in 4 hours. If pain not relieved, call provider, PACU Recovery, Routine promethazine (PHENERGAN) injection 12.5 mg 12.5 mg, Intravenous, EVERY 30 MIN PRN, Nausea, Starting on Fri10/07/17 at 1317, 2 doses, Until Fri10/07/17 at 1640, VESICANT - Dilute with a minimum of 10 mL saline. LARGE VEIN only. Inject over 10 minutes into the farthest port of a running IV infusion. Remain with the patient and STOP infusion immediately if patient reports burning. Avoid extravasation. If multiple antiemetics are ordered, use ondansetron first and if ineffective use prochlorperazine second and if ineffective use promethazine., PACU Recovery sodium chloride 0.9 % flush 5-20 mL 5-20 mL, Intravenous, EVERY 1 MIN PRN, Starting on Fri10/07/17 at 1053, Until e 10/07/17 at 1640, flush, Flush pertains to all indwelling lines. Flush per protocol found in the job aid using the link provided on this medication record., Day of Surgery (Day of Procedure), Routine No Frequency Medication Order 10/05/2017 10/06/2017 10/07/2017 chondroitin-sodium hyaluronate (VISCOAT) 4-3 % (40-30 mg/mL) intra-ocular injection 1 dose, Starting on Fri10/07/17 at 1055, Until Fri10/07/17 at 1640, [employer]: cabinet override 1100 (Due) Linked Groups Order Group 1: oxyCODONE (ROXICODONE) immediate release tablet 5 mgJump to med 5 mg, Oral, EVERY 4 HOURS PRN, Starting on Fri10/07/17 at 1338, Until Fri10/07/17 at 1640, Pain, mild pain (1-3), For mild pain (1-3). Do not exceed 15 mg in 4 hours. If pain not relieved, call provider, PACU Recovery, Routine Or oxyCODONE (ROXICODONE) immediate release tablet 10 mgJump to med 10 mg, Oral, EVERY 4 HOURS PRN, Starting on Fri10/07/17 at 1338, Until Fri10/07/17 at 1640, Pain, moderate pain (4-6), For moderate pain (4-6). Do not exceed 15 mg in 4 hours. If pain not relieved, call provider., PACU Recovery, Routine Or oxyCODONE (ROXICODONE) immediate release tablet 15 mgJump to med 15 mg, Oral, EVERY 4 HOURS PRN, Starting on Fri10/07/17 at 1338, Until Fri10/07/17 at 1640, Pain, severe pain, PACU Recovery, Routine documented in this encounter Care Teams Inspector Repairer Relationship Specialty Start Date End Date Lisa Mayorga MD [address] [place] [address] PCP - General 05/24/11 documented as of this encounter
--- OUTSIDE RECORDS SUMMARY | 2023-12-15 15:48 | XMS_ITS | Encounter Summary ---
Author Organization Formerly [facility] Address [facility] [place] [address] Care Team Providers Care Sales Associate Key Holder Name Role Phone Lisa Mayorga MD Primary Care Provider [phone] Reason for Visit * Reason Comments Follow-up Encounter Details Date Type Department Care Team (Late st Contact Info) Description 05/03/2013 4:00 PM EST Office [place] [address] Johnathon Esparza MD [facility] [place] [address] Ulcerative colitis (Primary Dx) Discharge Disposition: Home Social History Tobacco Use [...] Sign Reading Time Taken Comments Blood Pressure 115/77 05/03/2013 4:18 PM EST Pulse 99 05/03/2013 4:18 PM EST Temperature - - Respiratory Rate - - Oxygen Saturation 97% 05/03/2013 4:18 PM EST Inhaled Oxygen Concentration - - Weight 88.9 kg (195 lb 15.8 oz) 05/03/2013 4:18 PM EST Height - - Body Mass Index 28.12 03/24/2013 3:45 AM EDT documented in this encounter Progress Notes * Radha Salvador RN - 05/03/2013 7:05 PM EST Pt RTC for f/u with Dr. Esparza and survey rodman. He is s/p abd colectomy, Ileostomy and Royal's pouch on 03/23/13. He is home and doing well. He denies trouble with leaky pouches. He is having to getup frequently at night to empty. He does not empty frequently during the day, just at night. His effluent was oatmeal consistency today. Dr. Esparza suggested he take 2 Immodium before supper and 2 atHS. He will try this along with 1tsp Metamucil in the morning. His stoma is pink and viable and protrudes nicely from skin level. His peristomal skin intact. He had some leakage beneath the wafer andsaid this happens often. I had him try an lorena seal today and gave him one more of these. He prefers the Activelife or Coloplast pouches. He did not like the 2pc as he said they were too rigid. Pt is planning to have step 2 done in about 6 mos. I encouraged him to call if questions or concerns. * Johnathon Esparza MD - 05/03/2013 4:44 PM EST Mr. Argueta is a 43-year-old male with a history of ulcerative colitis dating from age 18. Symptoms have become refractory to medical management and recommendation was made to proceed with proctocolectomy with ileal pouch-anal anastomosis. At the time of his initial evaluation by me, patient was overweight. I had discussed the necessity for weight reduction prior to proceeding with surgery. Had established a target weight of at least 195 pounds or less. On the day of surgery, the patient reported that he had not made progress with weight reduction and still weighed 205 pounds. At the time of surgery, patient was noted to have a very fatty omentum as well as a fatty mesentery with a relatively short length to the mesentery. These findings were thought to preclude proceeding with the ileoanal pouch on that date. Surgery was limited to a total abdominal colectomy with ileostomy. Patient had an uncomplicated postoperative course and was discharged on the seventh postoperative day. He returns for followup evaluation. He reports that generally things have been coming along well. He complains that most of the output from his ileostomy occurs during the evening and nighttime hours. He is generally emptying his appliance at bedtime and then every two hours through the course of the night. For the remainder of the day he may empty it no more than once. Output from the ileostomy is fairly liquid in consistency in the morning. Patient has been using Metamucil each morning. Patient also reports that he has tried using sporadic doses of Imodium to reduce the frequency of evacuations during the night but this has not met with success. Patient is following an unrestricted diet. He is changing his appliance at nik-uad-k-half-day intervals and is having some difficulties with minor leakage beneath the appliance and associated skin irritation. Patient has not been having any difficulties with urination. He notes occasional mucus discharge from the anus every few days. Patient has successfully weaned and discontinued the prednisone he was taking. He does note that his Paxil capsules may come through his ileostomy appliance. I have advised him that these are delayed release medications and that he is seeing the wax matrix on the medication but the medication has been absorbed. On physical examination today the patient appears well. Weight today is 195 pounds. Abdomen is soft and nondistended without organomegaly or mass. Midline incision is well healed. There is a healthy-appearing ileostomy in the right lower quadrant. Peristomal skin is actually in excellent condition. Patient was seen in consultation with Radha Salvador from [facility]. She has recommended using an Lorena ring to see if this might help improve the seal around his current appliance. Have reviewed pathology results with the patient. Pathologic review of the operative specimen confirmed the diagnosis of ulcerative colitis. Have advised the patient that we could proceed with completion proctectomy and ileal pouch-anal anastomosis in approximately five months. It would be necessary to lose additional weight before moving ahead with that, and I have set a target goal of 185 pounds for that procedure. Will schedule a followup visit to see me in three months to assess weight reduction and schedule a date for surgery. Routine postoperative activity restrictions were reviewed. documented in this encounter Plan of Treatment Not on file documented as of this encounter Visit Diagnoses Diagnosis Ulcerative colitis- Primary Ulcerative colitis, unspecified documented in this encounter Care Teams Sales Associate Key Holder Relationship Specialty Start Date End Date Lisa Mayorga MD [address] [place] [address] PCP - General 05/24/11 documented as of this encounter
--- OUTSIDE RECORDS SUMMARY | 2023-12-15 15:48 | XMS_ITS | Encounter Summary ---
Author Organization Formerly [facility] Address [facility] [place] [address] Care Team Providers Care Billing Checker Name Role Phone Lisa Mayorga MD Primary Care Provider [phone] Encounter Details Date Type Department Care Team (Latest Contact Info) Description 03/16/2014 2:46 PM EDT - 03/16/2014 11:59 PM EDT Hospital Encounter XRay at [address] [place] [address] Bilateral hand pain Social History Tobacco Use [...] PowdIndications:Atten tion to ileostomy Convatec Stomahesive Powder #97631 Apply dusting of powder on irritated or reddened skin at time of pouch change. Dust excess away and seal with skin prep 1 Bottle 4 04/14/2013 Ostomy Supplies 2 1/4 MiscIndications:Atten tion to ileostomy Convatec Surfit 2 1/4 Large Moldable Wafer #340321 1 each 12 04/14/2013 Ostomy Supplies MiscIndications:Atten tion to ileostomy Convatec Surfit 2 1/4 drainable pouch #[id number] 1 each 12 04/14/2013 Ostomy Supplies SwabIndications:Atten tion to ileostomy [employer] #[id number] Box of Nosting skin Preps, apply after brushed dusting of powder from your skin. Allow to dry before applying wafer. 1 each 4 04/14/2013 albuterol (PROVENTIL HFA;VENTOLIN HFA) 90 mcg/actuation inhaler Inhale 2 puffs into the lungs 4 times daily as needed. Use with spacer PARoxetine (PAXIL) 20 mg Tablet Take 20 mg by mouth every morning. 09/18/2017 hydrocortisone (CORTIFOAM) 10 % (80 mg) rectal foam Place 1 applicator rectally nightly. 15 g 0 06/07/2013 09/18/2017 lisinopril (PRINIVIL;ZESTRIL) 10 mg tablet Take 1 tablet by mouth daily. 30 tablet 3 03/30/2013 09/18/2017 psyllium 6 gram packet Take 1 packet by mouth 2 times daily. 30 each 6 03/30/2013 09/18/2017 PARoxetine (PAXIL) 40 mg tablet Take 40 mg by mouth every morning. 09/18/2017 fluticasone-salmetero l (ADVAIR) 250-50 mcg/dose diskus inhaler Inhale 1 puff into the lungs 2 times daily. 02/22/2019 montelukast (SINGULAIR) 10 mg tablet Take 10 mg by mouth daily. 09/18/2017 documented as of this encounter Plan of Treatment Not on file documented as of this encounter Procedures Procedure Name Priority Date/Time Associated Diagnosis Comments XR HANDS MIN 3 VIEWS BILAT Routine 03/16/2014 3:05 PM EDT documented in this encounter Results * XR Bilateral Hands Minimum 3 Views (03/16/2014 3:05 PM EDT) Anatomical Region Laterality Modality Hand Bilateral Radiographic Anne ging 03/16/2014 3:05 PM EDT Narrative 03/16/2014 3:31 PM EDT Examination BILATERAL HANDS MIN 3 VIEWS/BILAT Clinical History BILATERAL HAND PAIN Comparison None. Technique 3 views bilateral hands. Findings No fracture or dislocation is identified. ??The joint spaces of both hands and wrist appear to be maintained. ??No erosions. ??No chondrocalcinosis is seen. ?? There is a small with a 2 mm punctate linear probable soft tissue calcification projecting along the radial aspect of the left index proximal phalanx. Impression No osseous abnormality is identified. Procedure Note Sergio Fisher MD - 03/16/2014 Examination BILATERAL HANDS MIN 3 VIEWS/BILAT Clinical History BILATERAL HAND PAIN Comparison None. Technique 3 views bilateral hands. Findings No fracture or dislocation is identified. The joint spaces of both handsand wrist appear to be maintained. No erosions. No chondrocalcinosis isseen. There is a small with a 2 mm punctate linear probable soft tissuecalcification projecting along the radial aspect of the left index proximal phalanx. Impression No osseous abnormality is identified. Vinh Barrett MD IMG DX ORDERABLES documented in this encounter Visit Diagnoses Diagnosis Bilateral hand pain Pain in limb documented in this encounter Care Teams Billing Checker Relationship Specialty Start Date End Date Lisa Mayorga MD [address] [place] [address] PCP - General 05/24/11 documented as of this encounter
--- OUTSIDE RECORDS SUMMARY | 2023-12-15 15:48 | XMS_ITS | Encounter Summary ---
Author Organization [facility]ly [facility] [place] [address] Care Team Providers Care Home Care Attendant Name Role Phone Lisa Mayorga MD Primary Care Provider [phone] Encounter Details Date Type Department Care Team (Late st Contact Info) Description 02/22/2019 2:00 PM EDT Office Visit [place] [address] Attention to ileostomy Social History Tobacco Use Types Packs/Day Years [...] as of this encounter Progress Notes * Brooke Yee, RN - 02/22/2019 2:00 PM EDT I met with patient and his Sary today during his appointment with Dr. Alejandro Zhong to discuss IPAA and hernia repair/abdominal reconstruction. Patient is now 5 years (03/23/13) s/p abdominal colectomy, ileostomy, Royal's pouch secondary to ulcerative colitis. HIs current weight is 60 lbs less than when he had his colectomy. He has managed well with his ileostomy over the past 6 years but in the past 2-3 months had a prolonged episode of ileus, dehydration requiring hospitalization. 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 For his ostomy care, he did not want me to change his Coloplast two piece appliance (Sensura Yelm Click) as he reports no peristomal skin irritation or erythema. I did discuss with him that he will have a loop ileostomy if he has the IPAA in the future. He told me that he is very well informed about the procedure. documented in this encounter Plan of Treatment Not on file documented as of this encounter Visit Diagnoses Diagnosis Attention to ileostomy documented in this encounter Care Teams Home Care Attendant Relationship Specialty Start Date End Date Lisa Mayorga MD [address] [place] [address] PCP - General 05/24/11 documented as of this encounter
--- OUTSIDE RECORDS SUMMARY | 2023-12-15 15:48 | XMS_ITS | Encounter Summary ---
Author Organization [facility] [place] [address] Care Team Providers Care Net Mobile Developer Name Role Phone Lisa Mayorga MD Primary Care Provider [phone] Reason for Visit * Auth/Cert Specialty Diagnoses / Procedures Referred By Sheba childs Referred To Contact Diagnoses Right palmar hand mass Procedures PRO EXCISE SOFT TISSUE LESION HAND SUBCUT EXCISION TUMOR OR VASC MAL, HAND OR FINGER, SUBQ, <1.5 CM (WRVU 3.96) Referral ID Status Reason Start Date Expiration Date Visits Re quested Visits Authorized [id number] 1 1 Encounter Details Date Type Department Care Team (Latest Contact Info) Description 10/07/2017 10:43 AM EDT - 10/07/2017 2:29 PM EDT Hospital Encounter Outpatient [place] [address] Tfifany Barrett MD [facility] [place] [address] Skin lesion of hand Discharge Disposition: Home Social History Tobacco [...] Sign Reading Time Taken Comments Blood Pressure 118/83 10/07/2017 2:01 PM EDT Pulse 75 10/07/2017 2:01 PM EDT Temperature 36 ??C (96.8 ??F) 10/07/2017 1:30 PM EDT Respiratory Rate 20 10/07/2017 2:01 PM EDT Oxygen Saturation 97% 10/07/2017 2:01 PM EDT Inhaled Oxygen Concentration - - Weight [...] closest emergency room or call the hospital operator and truck driver at [phone] and ask for physician shoes salesperson covering for your physician. Questions or problems after 5pm or on a weekend: Call the [facility] operator and truck driver at and ask for the physician shoes salesperson covering for your doctor. At 11:10 AM you received 1000 mg of acetaminophen- Your next dose should not be taken before 8 hours have passed. Next dose not before- 7:10 PM You should not take more than a total of 3000 mg of acetaminophen in a 24 hour period. * Patient Instructions* Greg Dial Saida - 10/07/2017 1:16 PM EDT Activity: Non [...] on them. You can also take an kalc-zzq-vhdubnp stool softener, colace or senna, to facilitate [...] splint/dressing clean and dry. Call your doctor (#[phone]) if: 1. You have a fever > 101.5 or experience chills ??? Increased discharge from the incision ??? Any redness or swelling around the incision ??? Increased pain or change in the pain that is not controlled by your pain meds WHERE TO CALL WITH QUESTIONS [facility] Ask for the resident shoes salesperson for your provider [facility] (7:00am - 5:00pm) Future Appointments Date Time Provider Department Center 10/20/2017 5:00 PM Tiffany Barrett MD [facility] documented in this encounter Medications at Time of Discharge Medication Sig Dispensed Refills Start Date End Date Ostomy Supplies PowdIndications:Atten tion to ileostomy Convatec Stomahesive Powder #44204 Apply dusting of powder on irritated or reddened skin at time of pouch change. Dust excess away and seal with skin prep 1 Bottle 4 04/14/2013 Ostomy Supplies 2 06/05 MiscIndications:Atten tion to ileostomy Convatec Surfit 2 06/05 Large Moldable Wafer #[id number] 1 each 12 04/14/2013 Ostomy Supplies MiscIndications:Atten tion to ileostomy Convatec Surfit 2 06/05 drainable pouch #[id number] 1 each 12 04/14/2013 Ostomy Supplies SwabIndications:Atten tion to ileostomy [employer] #[id number] Box of Nosting skin Preps, apply after [...] Barrett MD - 10/07/2017 1:24 PM EDT [facility] Operative Note Patient Name: Mic Argueta Jr. : [id number] MR#: [id number] Case Date: 10/07/2017 Surgeon: Surgeon(s) and Role: * Greg Dial MD - Resident-Interface Developer * Tiffany Barrett MD - Primary Preoperative [...] A preoperative timeout was performed as per [facility] protocol. His right arm was then exsanguinated [...] Note Patient Name: Mic Argueta Jr. : [id number] MR#: [id number] Case Date: 10/07/2017 Surgeon: Surgeon(s) and Role: * Greg Dial MD - Resident-Interface Developer * Tiffany Barrett MD - Primary Preoperative [...] (10/07/2017 1:06 PM EDT) Surgical Pathology Report [id number] ? Location: [facility] The signing pathologist has (i) examined the relevant preparation(s) for the specimen(s) and (ii) rendered or confirmed the diagnosis(es). . ?Surgical Pathology DIAGNOSIS Soft tissue, right hand mass, excision: - ??EPIDERMAL INCLUSION CYST Electronically signed by: ??Rodriguez Bowling MD Verified: ??10/09/2017 ?Dermatopatholo gist, Bone & Soft Tissue Pathologist Performed at: ??-[facility] Dept. of Pathology, [place], [place] CLINICAL INFORMATION Specimen Submitted: A - R hand mass Clinical History and Diagnosis: Right hand mass SPECIMEN PROCESSING A - Labeled/Fixative : Right hand mass, formalin. Quantity/Size: Single, 2.5 x 1.2 x 1.2 cm. Tissue Description: Nodular, cystic ortiz-white tissue. Sections/Process ing: (R1) ??ejr [facility] 10/07/2017 1:06 PM EDT Tiffany Barrett MD PATHOLOGY/CYTOLOGY O [place] Performing Organization Address [facility]/[place] [address] * Specimen to Pathology (10/07/2017 1:06 PM EDT) AP Specimen 10/07/2017 1:06 PM EDT 10/07/2017 4:43 PM EDT Narrative [facility] - 10/07/2017 4:43 PM EDT Specimen requisition ordered. ??Separate Pathology report to follow Resulting Agency Comment Spec In Lab Tiffany Barrett MD PATHOLOGY/CYTOLOGY O T[facility]ANNA Performing Organization Address [facility] [place] [address] documented in this encounter Visit Diagnoses Diagnosis s/p excisional biopsy of mass of right palm 10/07/17 (chapis) Unspecified disorder of skin and subcutaneous tissue [...] Given 10/07/2017 11:10 AM EDT 1,000 mg chondroitin-sodium hyaluronate (VISCOAT) 4-3 % (40-30 mg/mL) [...] Until Fri10/07/17 at 1640, Intra-Operative (Intra-Procedure), Routine 1309 (Given - Provid er: Tiffany Barrett MD) HYDROmorphone (DILAUDID) injection 0.4-0.6 mg 0.4-0.6 mg, Intravenous, EVERY 5 MIN PRN, Starting on Fri10/07/17 at 1317, Until Fri10/07/17 at 1640, Pain, Give 0.4 mg every [...] PRN, Starting on Fri10/07/17 at 1317, Until e 10/07/17 at 1640, Opioid Reversal, for respiratory rate less than 6 or unresponsive., May repeat every 5 minutes to increase respiratory rate. DO NOT exceed 0.12 mg total dose. Notify anesthesia immediately if administered., PACU Recovery, Routine ondansetron (ZOFRAN) injection 4 mg 4 mg, Intravenous, EVERY 30 MIN PRN, Starting on Fri10/07/17 at 1317, Until 10/07/17 at 1640, Nausea, [...] PRN, Starting on Fri10/07/17 at 1338, Until Tu10/07/17 at 1640, Pain, severe pain, PACU Recovery, Routine oxyCODONE (ROXICODONE) immediate release tablet 5 mg(Linked Group 1) 5 mg, Oral, EVERY 4 HOURS PRN, Starting on Fri10/07/17 at 1338, Until e 10/07/17 at 1640, Pain, mild pain (1-3), [...] PRN, Starting on Fri10/07/17 at 1338, Until Tu10/07/17 at 1640, Pain, moderate pain (4-6), For moderate pain (4-6). Do not exceed 15 mg in 4 hours. If pain not relieved, call provider., PACU Recovery, Routine Or oxyCODONE (ROXICODONE) immediate release tablet 15 mgJump to med 15 mg, Oral, EVERY 4 HOURS PRN, Starting on Fri10/07/17 at 1338, Until Tu10/07/17 at 1640, Pain, severe pain, PACU Recovery, Routine documented in this encounter Care Teams Net Mobile Developer Relationship Specialty Start Date End Date Lisa Mayorga MD [address] [place] [address] PCP - General 05/24/11 documented as of this encounter
--- OUTSIDE RECORDS SUMMARY | 2023-12-15 15:48 | XMS_ITS | Encounter Summary ---
Author Organization [facility] Address [facility] [place] [address] Care Team Providers Care Air Conditioning Mechanic Name Role Phone Lisa Mayorga MD Primary Care Provider [phone] Reason for Visit * Reason Onset Date Comments Pre Procedure Call 09/23/2017 Encounter Details Date Type Department Care Team (Late st Contact Info) Description 09/23/2017 [place] [phone] Vinh Barrett MD [facility] [place] [address] Pre Procedure Call Social History Tobacco Use Types Packs/Day Years [...] encounter Miscellaneous Notes * Telephone Encounter - Tori Diaz I - 09/23/2017 3:29 PM EDT Mic called to follow up to see the status of a schedule for Surgery with Dr. Barrett. I spoke with Johnna mahmood on approval. Mic would like a call at [phone] to schedule Surgery when it is approved. documented in this encounter Plan of Treatment Not on file documented as of this encounter Visit Diagnoses Not on filedocumented in this encounter Care Teams Air Conditioning Mechanic Relationship Specialty Start Date End Date Lisa Mayorga MD [address] [place] [address] PCP - General 05/24/11 documented as of this encounter
--- OUTSIDE RECORDS SUMMARY | 2023-12-15 15:48 | XMS_ITS | Encounter Summary ---
[place] [address] Care Team Providers Care Lap Maker Name Role Phone Lisa Mayorga MD Primary Care Provider [phone] Encounter Details Date Type Department Care Team (Late st Contact Info) Description 03/31/2013 Telephone [place] [address] Grecia Jaimes PA [address] [place] [phone] Social History Tobacco Use Types Packs/Day Years [...] encounter Miscellaneous Notes * Telephone Encounter - Grecia Jaimes PA - 03/31/2013 8:43 AM EDT Called pt at home this morning to f/u since discharge yesterday. No answer. I left ms for him to call us with any questions or concerns prior to his f/u appt. Grecia Jaimes PA-C Division of Colon & Rectal Surgery [facility] [phone] documented in this encounter Plan of Treatment Not on file documented as of this encounter Visit Diagnoses Not on filedocumented in this encounter Care Teams Lap Maker Relationship Specialty Start Date End Date Lisa Mayorga MD [address] [place] [address] PCP - General 05/24/11 documented as of this encounter
--- OUTSIDE RECORDS SUMMARY | 2023-12-15 15:48 | XMS_ITS | Encounter Summary ---
[place] [address] Care Team Providers Care Solar Applications Development Engineer Name Role Phone Lisa Mayorga MD Primary Care Provider [phone] Encounter Details Date Type Department Care Team (Latest Contact Info) Description 04/07/2013 11:00 AM EST Clinical Support [place] [address] NURSE, GENERAL SURGERY Discharge Disposition: Home Social History Tobacco Use [...] on filedocumented in this encounter Care Teams Solar Applications Development Engineer Relationship Specialty Start Date End Date Lisa Mayorga MD [address] [place] [address] PCP - General 05/24/11 documented as of this encounter
--- OUTSIDE RECORDS SUMMARY | 2023-12-15 15:48 | XMS_ITS | Encounter Summary ---
Author Organization [facility] [place] [address] Care Team Providers Care Button Station Worker Name Role Phone Lisa Mayorga MD Primary Care Provider [phone] Reason for Visit * Reason Comments Right Hand Pain * Consultation (Routine) - Specialty Diagnoses / Procedures Referred By Contac t Referred To Contact Orthopaedics Diagnoses Cyst of Bone, Rt Hand Procedures Evaluate and Treat Lisa Mayorga MD [address] [place] [address] [facility] [address] [place] [address] Referral ID Status Reason Start Date Expiration Date V isits Requested Visits Authorized [id number] Consult, Test & Treat Connection Center 09/11/2017 09/11/2018 1 1 Encounter Details Date Type Department Care Team (Late st Contact Info) Description 09/18/2017 3:20 PM EDT Office [place] [address] Naomy Fuentes PA [facility] [place] [address] Aguiar lesion of right hand Social History [...] Sign Reading Time Taken Comments Blood Pressure 128/94 09/18/2017 3:01 PM EDT Pulse 81 09/18/2017 3:01 PM EDT Temperature - - Respiratory Rate - - Oxygen Saturation - - Inhaled Oxygen Concentration - - Weight 86.2 kg (190 lb) 09/18/2017 3:01 PM EDT Height 177.8 cm (5' 10) 09/18/2017 3:01 PM EDT Body Mass Index 27.26 09/18/2017 3:01 PM EDT documented in this encounter Progress Notes * Naomy Fuentes PA - 09/18/2017 3:20 PM EDT PATIENT NAME: Mic Argueta Jr. AGE: 47 y.o. MR#: [id number] DATE OF VISIT: 09/18/2017 DATE OF INJURY/ONSET: Chronic STAFF: Dr. Barrett CHIEF COMPLAINT: Right hand mass HISTORY OF PRESENT ILLNESS: Mr. Argueta is a right hand dominant 47 y.o. male who comes into clinic today for evaluation of the right hand. He was seen by Maury Petty and Dr. Barrett for this complaint in 2013. He states that he initially thought that he was developing a callus over his palm. The massbecame larger in size and more painful. He tried to drain this with a needle, but he was unable to express any fluid. He denies having any symptoms consistent with infection. He cannot recall any major trauma to his hands and does not believe that he sustained any puncture wounds to this area. He does not feel that the mass has been changing in size, but he states that he has noticed some swelling around the mass after activity. He denies having any numbness or tingling. It sounds as though there was some discussion of obtaining an ultrasound to evaluate the mass in more detail with the ultimate plan of having this surgically excised. He was unable to proceed with treatment, but now would like to have his hand complaints addressed. He was also having some triggering of his thumbs, but this has resolved with cortisone injections. Medications and Allergies were reviewed in eD-H PAST MEDICAL HX: Patient Active Problem List Diagnosis Date Noted ??? Aguiar lesion of right hand 03/16/2014 ??? Trigger thumb of both thumbs 03/16/2014 ??? Atrial fibrillation 03/24/2013 ??? Asthma 02/12/2013 ??? Depression 02/12/2013 ??? Ulcerative (chronic) enterocolitis 01/10/2012 ??? Tremor 11/09/2011 PAST SURGICAL HX: Past Surgical History: Procedure Laterality Date ??? PRO COLONOSCOPY, BIOPSY 12/24/2011 COLONOSCOPY FLEXIBLE, WITH BX performed by ANDREW BRADLEY at [facility] ENDOSCOPY ??? PRO COLONOSCOPY, BIOPSY 01/11/2013 COLONOSCOPY FLEXIBLE, WITH BX performed by Johnathon Esparza MD at [facility] ENDOSCOPY ??? PRO COLONOSCOPY, DIAGNOSTIC 01/11/2013 COLONOSCOPY, DIAGNOSTIC performed by Johnathon Esparza MD at [facility] ENDOSCOPY ??? PRO REMOVAL COLON/ILEOSTOMY 03/23/2013 @COLECTOMY, TOTAL WITH ILEOSTOMY performed by Johnathon Esparza MD at [facility] MAIN OR SOCIAL HX: Social History Occupational History ??? disabled Social History Main Topics ??? Smoking status: Former Smoker Packs/day: 1.00 Years: 10.00 Types: Cigarettes Quit date: 04/02/2007 ??? Smokeless tobacco: Never Used ??? Alcohol use No ??? Drug use: No ??? Sexual activity: Yes Partners: Female control/ protection: Surgical ROS: Constitutional: neg ENT: neg Cardiac: neg Hematologic: neg Pulmonary: neg GI: neg Endocrine: neg Skin: neg Neurologic: neg Musculoskeletal: see HPI General Health, Prior Treatments, PreExisting Condition, Health Habits, About You 09/18/2017 PROMIS-10 General Health Good PROMIS-10 Quality of Life Good PROMIS-10 Physical Health Fair PROMIS-10 Mental Health Excellent PROMIS-10 Social Activity Good PROMIS-10 Everyday Activities Moderately PROMIS-10 Pain 0 -No Pain PROMIS-10 Fatigue Mild PROMIS-10 Social Roles Good PROMIS-10 Anxious or Depressed Sometimes PROMIS PHYSICAL SCORE (range 16-68) 44.9 PROMIS MENTAL SCORE (range 21-68) 48.3 Alzheimers or dementia No Cirrohosis or liver disease No HIV/AIDS No Pain in more than one joint in legs No Back or neck pain No Heart attack No Heart failure No Unclog/bypass leg arteries No Stroke, blood clot, TIA No Asthma Yes Take medication for asthma Yes Emphysema, chronic bronchities, or COPD No Stomach ulcers/peptic ulcer disease No Diabetes No Poor kidney function No Rheumatic condtions No Cancer No Weight (lbs) 190 Height (feet) 5 feet Height (Inches) 10 BMI 27.25 (Overweight) Ever used tobacco products Yes Tobacco frequency Never WHO - Tobacco Advice 0 (You are at low risk of health and other problems from your current pattern of use.) Ever used alcoholic beverages No Live Alone No Marital situation Schooling Some college or 2 - year degree Combined Household Income $25,000 to less than $35,000 # People Supported 3 Dutch, , No, not Dutch// Race White Health Literacy Extremely Currently working No Not working because: Not working due to disability PHYSICAL EXAM: Mr. Argueta is a 47 y.o. male who is alert and oriented. He is in no acute discomfort and is resting comfortably in the exam room. Inspection: He has a round soft tissue mass over the radial aspect of his palm that is approximately 1 cm in diameter. There is no surrounding erythema or ecchymosis. No evidence of drainage. Palpation: The mass is tender to palpation. It is difficult to determine whether this is fluid-filled or solid. It appears to be rather superficial, but will adhere to the overlying skin. There are no palpable Dupuytren's cords or other soft tissue lesions over the palm. ROM/Strength: He is able to perform full active finger flexion and extension. There is no triggering of the digits. Neurovascular: Sensate distally with good perfusion. DIAGNOSTIC STUDIES: X-rays of the right hand were personally reviewed. There is no evidence of any radiopaque foreign body in the location of his mass. No bony abnormalities are noted. ASSESSMENT: Right palmar hand mass PLAN: He is finding the mass to be very uncomfortable and would like to have this excised. The massappears to be consistent with an epidermal inclusion cyst versus foreign body granuloma, but the exact diagnosis remains unclear. He will meet with the surgical schedulers today. I will also review this with Dr. Barrett and if he would like to obtain an ultrasound of her advanced imaging prior to excision we will schedule this. He will return for follow up with Dr. Barrett for a preoperative visit. The patient understands to contact us if they have any other questions or concerns. The above documentation was completed using EPIS voice recognition software. documented in this encounter Plan of Treatment Not on file documented as of this encounter Visit Diagnoses Diagnosis Aguira lesion of right hand Unspecified disorder of skin and subcutaneous tissue documented in this encounter Care Teams Button Station Worker Relationship Specialty Start Date End Date Lisa Mayorga MD [address] [place] [address] PCP - General 05/24/11 documented as of this encounter
--- OUTSIDE RECORDS SUMMARY | 2023-12-15 15:48 | XMS_ITS | Encounter Summary ---
Author Organization [place] [address] Care Team Providers Care Finished Hardware Erector Name Role Phone Lisa Mayorga MD Primary Care Provider [phone] Reason for Referral * Diagnostic Test (Routine) - Closed Specialty Diagnoses / Procedures Referred By Sheba childs Referred To Contact Radiology Diagnoses Chronic ulcerative proctitis with rectal bleeding Procedures CT Abdomen & Pelvis w Contrast [place] [address] [facility] [place] [address] Referral ID Status Reason Start Date Expiration Date V isits Requested Visits Authorized [id number] Closed Specialty Service Requested 02/22/2019 02/22/2020 1 1 Reason for Visit * Reason Comments Establish Care * Consultation (Routine) - Specialty Diagnoses / Procedures Referred By Sheba childs Referred To Contact General Surgery Diagnoses Ulcerative colitis, unspecified, without complications HERNIA REPAIR AND J-POUCH S/P COLECTOMY FOR ULCERATIVE COLITIS Lisa Mayorga MD [address] [place] [address] [facility] Gen Surgery [address] [place] [address] Referral ID Status Reason Start Date Expiration Date V isits Requested Visits Authorized [id number] Consult, Test & Treat Connection Center PCP Updated and/or Approved 12/18/2018 06/20/2019 6 6 Encounter Details Date Type Department Care Team (Late st Contact Info) Description 02/22/2019 2:00 PM EDT Office Visit General Surgery at [facility] [place] [address] Dylan Zhong MD [facility] [place] [address] Chronic ulcerative proctitis with rectal bleeding Social History Tobacco Use Types Packs/Day Years [...] Sign Reading Time Taken Comments Blood Pressure 147/95 02/22/2019 1:51 PM EDT Pulse 85 02/22/2019 1:51 PM EDT Temperature - - Respiratory Rate 16 02/22/2019 1:51 PM EDT Oxygen Saturation 97% 02/22/2019 1:51 PM EDT Inhaled Oxygen Concentration - - Weight 83 kg (183 lb) 02/22/2019 1:51 PM EDT Height 175.3 cm (5' 9) 02/22/2019 1:51 PM EDT Body Mass Index 27.02 02/22/2019 1:51 PM EDT documented in this encounter Progress Notes * Han Villarreal MD - 02/22/2019 2:00 PM EDT Colorectal Surgery Outpatient Consultation ~ Division of Colon and Rectal Surgery ~ [facility] HPI: Mic Argueta Jr. is a pleasant 49 y.o. male who we were asked to see by Dr. Mayorga regardingparastomal hernia and assesment for a J pouch The patient's PCP is Lisa Mayorga MD. Mr. Argueta is a 49 male who was diagnosed with UC at age 18 and had medically refractory disease. He had a planned staged total proctocolectomy [place] [address] Esparza but intraoperatively it was found that he had significantly fatty small and large bowel mesentery making ileoanal anastomosis difficult. He thus underwent a total abdominal colectomy with a lilia pouch formed at the sacral promontory with end ileostomy. The pathology of the specimen was consistent with ulcerative colitis. He did well postoperatively and was told to lose weight in order to proceed with formation of a J pouch. He did develop a small parastomal hernia about 2-3 months following surgery. Over the last 5 years he has had increased size of the hernia with intermittent pain on the lateral aspect. Stoma itself has functioned well. No peristomal drainage or retraction He was admitted in November for a partial smallbowel obstruction treatment with bowel rest and IV hydration. He also had dehydration from high ileostomy output requiring IV hydration about 3 weeks ago. He is also interested in a J pouch and says he has researched it well and would like one. He denies fevers chills. Good appetite. No N/V. He has had a 60 pound intended weight loss over thelast several years He has not been on any medications to treat his UC since his TAC. He has not hadany endoscopic or digital examination of his rectal stump since surgery in 2012. He passes mucus about once a week via his rectum. No blood or drainage. Review of Systems Constitutional: Negative. Respiratory: Negative. Genitourinary: Negative. Gastrointestinal: Positive for abdominal discomfort. Negative for vomiting, GERD, constipation, nausea, steatorrhea, diarrhea and trouble swallowing. HENT: Negative. Psychiatric/Behavioral: Negative. Hematologic/Lymphatic: Negative. Musculoskeletal: Negative. Endocrine: Negative. Cardiovascular: Negative. Neurological: Negative. Past medical history: Patient Active Problem List Diagnosis Code ??? Tremor R25.1 ??? Ulcerative (chronic) enterocolitis K51.00 ??? Asthma J45.909 ??? Depression F32.9 ??? Atrial fibrillation I48.91 ??? s/p excisional biopsy of mass of right palm 10/07/17 (warhold) L98.9 ??? Trigger thumb of both thumbs M65.311, M65.312 Past surgical history: Past Surgical History: Procedure Laterality Date ??? PRO COLONOSCOPY, BIOPSY 12/24/2011 COLONOSCOPY FLEXIBLE, WITH BX performed by ANDREW BRADLEY at [facility] ENDOSCOPY ??? PRO COLONOSCOPY, BIOPSY 01/11/2013 COLONOSCOPY FLEXIBLE, WITH BX performed by Johnathon Esparza MD at [facility] ENDOSCOPY ??? PRO COLONOSCOPY, DIAGNOSTIC 01/11/2013 COLONOSCOPY, DIAGNOSTIC performed by Johnathon Esparza MD at [facility] ENDOSCOPY ??? PRO EXC, TUMOR, SOFT TISSUE///VASCUL MALFORM, HAND/FINGER, SUBFASCIAL, 1.5CM OR GREATER Right 10/07/2017 EXCISION, TUMOR, SOFT TISSUE OR VASCULAR MALFORMATION OF HAND OR FINGER, SUBFASCIAL (EG. INTRAMUSCULAR); 1.5 CM OR GREATER (WRVU 7.13) performed by Vinh Barrett MD at [facility] OSC ??? PRO REMOVAL COLON/ILEOSTOMY 03/23/2013 @COLECTOMY, TOTAL WITH ILEOSTOMY performed by Johnathon Esparza MD at [facility] MAIN OR Allergies: Nsaids (non-steroidal anti-inflammatory drug) Medications: reviewed in the electronic medical record. Current Outpatient Medications on File Prior to Visit Medication Sig Dispense Refill ??? CANNABIDIOL, CBD, EXTRACT ORAL Take by mouth 3 times daily. ??? albuterol (PROVENTIL HFA;VENTOLIN HFA) 90 mcg/actuation inhaler Inhale 2 puffs into the lungs 4times daily as needed. Use with spacer ??? [DISCONTINUED] oxyCODONE (ROXICODONE) 5 mg Tablet Take 1 tablet by mouth every 4 hours as needed. 20 tablet 0 ??? [facility] Con[facility] Stomahesive Powder #[id number] Apply dusting of powder on irritated or reddened skin at time of pouch change. Dust excess away andseal with skin prep 1 Bottle 4 ??? Ostomy Supplies 2 1/4 Misc Convatec Surfit 2 1/4 Large Moldable Wafer #[id number] 1 each 12 ??? Ostomy Supplies Misc Convatec Surfit 2 1/4 drainable pouch #[id number] 1 each 12 ? ? Ostomy Supplies Swab [employer] #[id number] Box of Nosting skin Preps, apply after brushed dusting of powder from your skin. Allow to dry before applying wafer. 1 each 4 ??? [DISCONTINUED] fluticasone-salmeterol (ADVAIR) 250-50 mcg/dose diskus inhaler Inhale 1 puff into the lungs 2 times daily. No current facility-administered medications on file prior to visit. Social history: reports that he quit smoking about 11 years ago. His smoking use included cigarettes. He has a 10.00 pack-year smoking history. He has never used smokeless tobacco. He reports that hedoes not drink alcohol or use drugs. Family medical history: Family History Problem Relation Age of Onset ??? Diabetes Father Patient denies a family history of: colorectal cancer, colorectal polyps, diverticular disease, Crohn disease and ulcerative colitis. Patient admits a family history of: none. Physical exam: Vitals: Blood pressure (!) 147/95, pulse 85, resp. rate 16, height 175.3 cm (5' 9), weight 83 kg (183 lb), SpO2 97 %. BMI: Body mass index is 27.02 kg/m??. General Appearance: well developed and well nourished Neuro: awake, alert and oriented to person, place and time no acute distress Psych: appropriate mood and affect Eyes: extra ocular muscles intact, pupils equally reactive to light and accomodation ENT: neck supple, no lyphadenopathy noted CV: regular rate and rhythm Resp: non-labored without adventitous sounds on auscultation Lymph: no edema noted Abdomen: soft, non-tender, and not distended, no masses or organomegaly. Well healed laparotomy with no hernias. RLQ ileostomy appears healthy. A lateral hernia that is soft and non-tender with no skin changes. Perineal exam: The patient was examined in the prone alphonse-knife position with assistance from nursing. Digital exam: normal external exam with good sphincter tone. No masses or lesions. No palpable masses. No gross blood. Rigid/flexible Sigmoidoscopy: some anal stricturing. Patient was uncomfortable during exam. There was evidence of a significant erythema and inflammation of the rectal mucosal stump. Exam discontinued due to inadequate visualization. Ext: no cyanosis Labs: none Endoscopy: none Path: reviewed. Imaging: none No flowsheet data found. The COREFO questionnaire is a validated questionnaire with 27 questions to assess colorectal functional outcome. Patients are asked to consider the two week period prior before filling out the questionnaire. Category scores range from zero to 100. A total score is calculated from the categories above, also ranging from zero to 100. A higher score represents an increased level of functional disturbance. Impression/Plan: Mic Argueta is a 49 y.o. male with ulcerative colitis s/p total abdominal colectomy with [place] ile[place] [address] Esparza who present with a symptomatic parastomal hernia and interest in a J pouch. He has lost a good amount of weight and has a BMI of 27 today. He has nothad any surveillance of his rectal stump since 2012 and flex sig today showed inflammatory changes but due to pt discomfort we were unable to perform a good evaluation. As such we will need to first determine if he has active disease in the rectum or polyps/dysplasia and will schedule a flex sig with sedation. We will also obtain a CT of the abdomen and pelvis to evaluate the anatomy of his hernia and abdominal wall. Once we evaluate these we will discuss first performing a proctectomy and J pouch with loop ileostomy prior to stomal hernia repair. Discussed potential risks, benefits, and alternatives to J-pouch surgery with abdominal wall reconstruction as this would be a significant undertaking, requiring at least two separate operations, likely with mesh placement. Plan: - Will schedule for a Flex sig under sedation to evaluate rectal stump and biopsy if needed. - CT scan of Abdomen and Pelvis with contrast - Once these have been completed we will discuss surgical planning Dylan Zhong MD, MSc cell support operator Division of Colon and Rectal Surgery [facility] Pager [phone] documented in this encounter Plan of Treatment Not on file documented as of this encounter Results * CT Abdomen & [...] the number below. ? Electronically signed by: CANDELARIA Mosquera [facility] ([phone]), at 02/24/2019 8:55 AM Narrative 02/24/2019 8:55 [...] administration of contrast. Administered 95.0 ml of ZBSCZDQAN242.00 mg/ml. Oral contrast was administered. COMPARISON: January [...] this report, please contact the number below. Dylan Zhong MD IMG CT ORDERABLES documented in this encounter Visit Diagnoses Diagnosis Chronic ulcerative proctitis with rectal bleeding Ulcerative (chronic) proctitis Chronic ulcerative proctitis with rectal bleeding Ulcerative (chronic) proctitis documented in this encounter Care Teams Finished Hardware Erector Relationship Specialty Start Date End Date Lisa Mayorga MD [address] [place] [address] PCP - General 05/24/11 documented as of this encounter
--- OUTSIDE RECORDS SUMMARY | 2023-12-15 15:48 | XMS_ITS | Encounter Summary ---
Author Organization [facility] [place] [address] Care Team Providers Care Hemmer Automatic Name Role Phone Lisa Mayorga MD Primary Care Provider [phone] Reason for Visit * Reason Onset Date Comments Referral 02/17/2014 Encounter Details Date Type Department Care Team (Late st Contact Info) Description 02/17/2014 [place]phone [place] [id number] Deyanira Laureano Referral Social History Tobacco Use Types Packs/Day Years [...] encounter Miscellaneous Notes * Telephone Encounter - Deyanira Laureano - 03/07/2014 12:08 PM EDT COMPLETE. * Telephone Encounter - Garima Flowers - 02/21/2014 4:27 PM EDT Ask the patient to verify the following: Full Name: Mic Hinojosa Ellie Small : 1970 Phone number: [phone] (home) Mailing address: [address] [address] Age: 44 y.o. Appointment date: 03/16/14 Appointment is with: DR. RIDDLE Reason #1 Injury/Complaint: CYST IN R PALM Date of injury/complaint: 2012 Is this a new injury? No Is this a 2nd opinion? No Appointment type: 18-100 Adult - Not sports related Is this Workers Comp? No How long have you had these symptoms? 1 years Records Retrieval Most recent physical exam: Yes - When? Where? Who? Notes: 01/2014 [facility] DR CALVILLO X-rays: No MRI: No CT Scan: No Physical therapy: No Injection: No Other diagnostic studies: No Other therapies: No Other specialist(s): No If 2nd (+) opinion get info on previous: No Have you had any surgeries for this issue? No Did surgery include placement of implant/hardware or fixation of any kind? No Do you use any type of orthotics? No Additional injuries: Advanced Directive Do you have an Advanced Directive on file: Yes Advance Directive state pilot: N/A [facility] Do you have a [facility] account? No - I would like you to sign up for myD-H, which will give you secure online access to your electronic medical record at [facility] and the ability to communicate with your health care team whenand where it???s most convenient for you. With myD-H you will be able to: - look at parts of your medical record including test results and office notes - send and receive messages to/from me and your other providers - renew prescriptions - schedule appointments. To sign up, go to [email or web address] and click I have an activation code and follow the instructions. Here is your activation code: [email or web address] Expires: 04/07/2014 4:30 PM Remember, myD-H is NOT for urgent needs! Always dial 911 for medical emergencies. * Telephone Encounter - Deyanira Laureano - 02/17/2014 2:58 PM EDT LM #1 to set up appointment for Referral. documented in this encounter Plan of Treatment Not on file documented as of this encounter Visit Diagnoses Not on filedocumented in this encounter Care Teams Hemmer Automatic Relationship Specialty Start Date End Date Lisa Mayorga MD [address] [place] [address] PCP - General 05/24/11 documented as of this encounter
--- OUTSIDE RECORDS SUMMARY | 2023-12-15 15:49 | XMS_ITS | Encounter Summary ---
Author Organization [facility] [place] [address] Care Team Providers Care Paradi Tender Name Role Phone Lisa Mayorga MD Primary Care Provider [phone] Encounter Details Date Type Department Care Team (Late st Contact Info) Description 12/24/2011 External Results Gastroenterology at [facility] [place] [address] Rosita Parks APRN [facility] [place] [address] Social History Tobacco Use Types Packs/Day Years Used Date Smoking Tobacco: Former Cigarettes 1 06/02/1996 - 04/02/2007 Smokeless Tobacco: Never [...] Procedure Name Priority Date/Time Associated Diagnosis Comments EXTERNAL LAB RESULTS Routine 12/24/2011 documented in this encounter Results * External Lab Results (12/24/2011) Blood specimen (specimen) 12/24/2011 L Luke Anglin MD CHEMISTRY ORDERABLES documented in this encounter Visit Diagnoses Not on filedocumented in this encounter Care Teams Paradi Tender Relationship Specialty Start Date End Date Lisa Mayorga MD [address] [place], [place] [address] PCP - General 05/24/11 documented as of this encounter
--- OUTSIDE RECORDS SUMMARY | 2023-12-15 15:49 | XMS_ITS | Encounter Summary ---
Author Organization [facility] Address [facility] [place] [address] Care Team Providers Care Tavern Car Attendant Name Role Phone Lisa Mayorga MD Primary Care Provider [phone] Reason for Visit * Reason Comments Follow-up Encounter Details Date Type Department Care Team (Late st Contact Info) Description 02/12/2013 2:00 PM EDT Follow-[place] [address] Johnathon Esparza MD [facility] [address] Ulcerative colitis (Primary Dx) Discharge Disposition: Home [...] Sign Reading Time Taken Comments Blood Pressure 137/90 02/12/2013 1:56 PM EDT Pulse 84 02/12/2013 1:56 PM EDT Temperature 36.4 ??C (97.5 ??F) 02/12/2013 1:56 PM ED T Respiratory Rate 16 02/12/2013 1:56 PM EDT Oxygen Saturation 96% 02/12/2013 1:56 PM EDT Inhaled Oxygen Concentration - - Weight 91.8 kg (202 lb 6.1 oz) 02/12/2013 1:56 P M EDT Height - - Body Mass Index 28.23 01/10/2012 10:25 AM EDT documented in this encounter Progress Notes * Johnathon Esparza MD - 02/13/2013 8:33 AM EDT Date: 02/12/2013. Mr. Argueta, a 43-year-old male, returns to discuss options for managing intractable ulcerative colitis. The patient's colitis dates from the age of 18. The patient has been on a variety of medication regimens to treat symptoms of his colitis but has primarily been treated with systemic steroids as the most effective measure for controlling symptoms of his disease. The patient last saw me in the office in October 2012, at which time his colitis appeared to be quiescent. He was having two bowel movements per day, and bowel movements were described as solid in consistency. The patient was experiencing only minor amounts of blood on the paper every few weeks. Prior to this, however, the patient had experienced a minor flare in symptoms of his colitis that had been treated with narcotic analgesics and systemic steroids during a brief hospitalization at [facility]. It was this minor flare that had led the patient to return to see me to reconsider surgical options. Prior to that time the patient had been off of prednisone for approximately six months. In order to assess the extent and severity of the patient's colitis, he subsequently underwent a colonoscopy performed by me on 01/11/2013. That examination demonstrated mucosal changes consistent with pancolitis with multiple scarred ulcers throughout the colon. There was also pseudopolyp formation in the sigmoid segment. Multiple mucosal biopsies were obtained. These revealed mildly active chronic colitis with no evidence of dysplasia or granuloma formation. A subsequent CT enterography performed on 01/14/2013 revealed no evidence of inflammatory change in the small intestine. CT scan was notable for an L5-S1 posterior fusion. The patient returns today to discuss results and potential plans for surgery. He reports on arrival today that he has been experiencing a flare in symptoms of his disease for the past three to four weeks. He reports that he is presently having eight loose bowel movements per day. Bowel movements are bloody in character. The patient has been experiencing some mild abdominal cramping but no sustained abdominal pain. He has not been experiencing any flare in extraintestinal manifestations of his disease that have primarily been related to an active stomatitis and arthritis. The patient has not been taking any medications to treat his symptomatic flare despite the fact that he has previously self-medicated with steroids. He is not having any difficulties with urination and reports that his weight has been stable. He has not been using any NSAIDs and is taking no other new medications. Past medical history is notable for: 1. Asthma. The patient reports this currently stable with use of Singulair and Advair. 2. Depression. 3. Status post lumbar fusion. 4. Chronic ulcerative colitis. Current medications include Advair, Singulair, Proventil inhaler (patient rarely uses), and Paxil. The patient has no medication allergies. On physical examination, the patient is a well developed, obese male in no acute distress. Temperature 97.5, blood pressure 137/90, pulse 84. Weight 202 pounds, BMI 28.2. Significant physical findings include absence of skin rash or jaundice. Neck is supple without mass. There are no cervical bruits. Chest is clear to auscultation. Cardiovascular exam reveals a regular heart rhythm with normal heart sounds. No murmurs or gallops are appreciated. Abdomen is obese and soft without organomegaly or mass. There is no tenderness to palpation. Examination of extremities reveals no calf tenderness or edema. Impression: Chronic ulcerative colitis with current symptomatic flare. The patient indicates that he is interested in moving ahead with proctocolectomy and ileal pouch anal anastomosis to eradicate his ulcerative colitis. Have advised him that I would want to try to get the disease into symptomatic remission before proceeding with surgery. Have recommended treating current symptoms with prednisone 20 mg per day. Will have the patient return to see me in approximately three weeks to assess his progress. He will also telephone in on 02/17/2013 to advise me of his progress. If symptoms are not controlled, will increase the prednisone to 30 mg per day. Have advised the patient that the symptomatic flare and the need for treatment with steroids may alter the plans for surgery. If we cannot get the disease under control or if we cannot get his dose of prednisone down to 20 mg per day or less at the time of surgery then I would plan to perform the proctocolectomy as a three-stage procedure. If the disease can be brought under control and the patient is on 20 mg or less of prednisone per day, could still plan to proceed with two-stage procedure. Have previously reviewed the expected functional consequences with this procedure as well as possible risks and complications. We will do this again as we get closer to a date for surgery. Will submit the paperwork to schedule the hospitalization for approximately five to six weeks from now, assuming we can get the disease under control. I have also recommended that the patient contact Dr. Madi Thomas, his drawing in machine tender helper, to advise him of the change in the status of his disease. * Fiona Grecia KaykayNIA - 02/12/2013 10:24 PM EDT COLON & RECTAL SURGERY Follow-Up Office Visit Interval History: Mic Argueta Jr. is a 43 y.o. male with ulcerative colitis, last seen in [facility]orectal [facility] on 11/16/[address] Johnathon Esparza for evaluation for surgical options (proctocolectomy versus proctocolectomywith ileal pouch anal anastomosis) for managing his UC. At that visit, it was determined that the pa tient would undergo colonoscopy with biopsies, as well as a CT enterography, to rule out the possibility of Crohn's. The colonoscopy was performed on 01/11/[address] Esparza, and revealed extensive pancolonic ulcerative colitis, quiescent. This was biopsied. Pathologic review of the biopisies revealed inactive to mildly active chronic colitis, with no dysplasia or granuloma seen. The CT enterography was performed on 01/14/13, and showed large and small bowel to be normal, with no evidence of inflammatory bowel disease. The patient returns today for follow-up evaluation and surgical planning. The patient reports that his symptoms have worsened a bit since his last visit. His BMs have increased to 6/day (up from 2-3/day at his last visit), loose, always bloody since undergoing the barium enema. He denies recent NSAID use, any mew medications or allergies. Also denies any new health problems. He has not experienced any abdominal pain or cramps. No fevers or chills. Current medications: Paxil, Advair, Singulair (no longer taking albuterol or neurontin) NKDA Physical Exam: Blood pressure 137/90, pulse 84, temperature 36.4 ??C (97.5 ??F), resp. rate 16, weight 91.8 kg (202 lb 6.1 oz), SpO2 96.00%. There is no height on file to calculate BMI. On physical examination today, the patient is in no acute distress. Anicteric. Moist mucus membranes. Abdomen is soft, round, non- distended, non-tender to palpation, no organomegaly or mass. Impression: DAI, currently with worsening symptoms Plan: Given the increased number of bloody BMs, we will have the patient resume Prednisone at 20mg.day to get his disease to settle down a bit prior to proceeding to surgery. We may taper the dose aswe get closer to surgery if symptoms stabilize. His disease activity and prednisone dose will dictate whether his operation can be done in 2 versus 3 stages. If we are not able to control his symptoms on anything other than a very high dose of prednisone, we will almost surely elect a 3 stage approach. We will tentatively schedule his surgery for 4 weeks from now, as this will give us time to gethis symptoms under better control. We have advised the patient to contact his drawing in machine tender helper, Dr. Anibal Thomas, to let him know that we are resuming the steroids. Additionally, the patient is to call into our clinic next Friday to provide us with an update on whether his symptoms (BM frequency and bleeding) have improved with the daily 20mg dose of prednisone (10mg BID). If symptoms have im proved, we will plan to have him continue the 20mg dose for another 7 days, then taper to 15mg x 10days, then to 10mg. If he is well controlled at 10mg, we can likely completer the surgery in 2 stages. If, however, symptoms have not improved at the 20mg dose when he calls in to clinic, we will plan to increase him to 30mg, then have him call in to clinic the following Friday to report his response. If symptoms worse at the 20mg dose, he will need to be seen in clinic for further evaluation. Additionally, we would like to get the patient's weight down a bit prior to the surgery. Goal weight loss will be 10lbs (he is at 202lbs today). He was encouraged to decrease both the amount of carbohydrates and calories, while keeping his protein intake high. He expressed understanding and agreement. We will proceed with scheduling a date for his surgery,and will have him RTC 1 week prior for follow-up evaluation, pre-op blood work, and to meet with Enterostomal Therapy for education and siting. He knows to call us in clinic with any questions or concerns that should arise prior to that visit. Patient seen, examined and discussed with Dr. Johnathon Esparza, and this note reflects our close collaboration and agreement. Grecia Jaimes PA-C Division of Colon & Rectal Surgery [facility] [phone] CRS Attending: Pt seen and examined with Fiona. Above note reviewed and amended to include my observations. Hope to bring symptoms of active disease under better control prior to proceeding with surgery in hopes that we can accomplish the procedure in two rather than 3 stages. Will reassess when pt returns for preop visit. Bobbi Esparza MD documented in this encounter Plan of Treatment Not on file documented as of this encounter Visit Diagnoses Diagnosis Ulcerative colitis- Primary Ulcerative colitis, unspecified documented in this encounter Care Teams Tavern Car Attendant Relationship Specialty Start Date End Date Lisa Mayorga MD [address] [place] [address] PCP - General 05/24/11 documented as of this encounter
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
--- OUTSIDE RECORDS SUMMARY | 2023-12-15 15:49 | XMS_ITS | Encounter Summary ---
Author Organization [facility] Address [facility] [place] [address] Care Team Providers Care Hot Water Heater Installer Name Role Phone Lisa Mayorga MD Primary Care Provider [phone] Encounter Details Date Type Department Care Team (Late st Contact Info) Description 01/11/2013 Orders [place] [address] Johnathon Esparza MD [facility] [place] [address] Ulcerative colitis (Primary Dx) Social History Tobacco Use Types Packs/Day Years [...] as of this encounter Results * CT abdomen & pelvis with contrast (01/14/2013 11:48 AM EDT) Anatomical Region Laterality Modality Abdomen, Pelvis Computed Tomogra phy 01/14/2013 11:4 8 AM EDT Narrative 01/14/2013 12:[address] Abdomen / Pelvis With Contrast Clinical History enterography chronic colitis screen for evidence of crohn's enteritis Comparison None Technique 110 mL Omnipaque 350 utilized for intravenously enhanced CT of the abdomen and pelvis with an enterography protocol. ??Neutral oral contrast was administered. Findings The small bowel is normal. ??No evidence of wall thickening, luminal narrowing, or hyperemia of the adjacent mesenteric vessels to suggest inflammation/infection. ??The terminal ileum is normal. ??The large bowel is also unremarkable, without evidence of wall thickening or obvious pathologic luminal narrowing. ?? The liver, spleen, gallbladder, pancreas, adrenal glands, and kidneys are normal. No adenopathy, free fluid free air. The osseous structures remarkable for an L5-S1 posterior fusion. Impression The large and small bowel is normal. ??No evidence of inflammatory bowel disease. Procedure Note Jovi Harper MD - 01/14/[address] Abdomen / Pelvis With Contrast Clinical History enterography chronic colitis screen for evidence of crohn's enteritis Comparison None Technique 110 mL Omnipaque 350 utilized for intravenously enhanced CT of the abdomenand pelvis with an enterography protocol. Neutral oral contrast wasadministered. Findings The small bowel is normal. No evidence of wall thickening, luminalnarrowing, or hyperemia of the adjacent mesenteric vessels to suggest inflammation/infection. The terminal ileum is normal. The large bowel isalso unremarkable, without evidence of wall thickening or obvious pathologicluminal narrowing. The liver, spleen, gallbladder, pancreas, adrenal glands, and kidneys are normal. No adenopathy, free fluid free air. The osseous structures remarkable for an L5-S1 posterior fusion. Impression The large and small bowel is normal. No evidence of inflammatory boweldisease. Johnathon Esparza MD IMG CT ORDERABLES documented in this encounter Visit Diagnoses Diagnosis Ulcerative colitis- Primary Ulcerative colitis, unspecified Ulcerative colitis Ulcerative colitis, unspecified documented in this encounter Care Teams Hot Water Heater Installer Relationship Specialty Start Date End Date Lisa Mayorga MD [address] [place] [address] PCP - General 05/24/11 documented as of this encounter
--- OUTSIDE RECORDS SUMMARY | 2023-12-15 15:49 | XMS_ITS | Encounter Summary ---
Author Organization [facility] Address [facility] [place] [address] Care Team Providers Care Business Insight And Analytics Manager Name Role Phone Lisa Roberts MD Primary Care Provider Encounter Details Date Type Department Care Team (Late st Contact Info) Description 03/23/2013 7:30 AM EDT - 03/23/2013 1:58 PM EDT Surgery [place] [id number] Pillo Avina MD [facility] [place] [address] @COLECTOMY, TOTAL WITH ILEOSTOMY (VU 30.18) Social History Tobacco Use Types Packs/Day Years [...] Instructions * Patient Instructions* Arianna Beatty Saida B - 03/29/2013 1:51 PM EDT Colon and [...] at the [facility] - Audio Engineer 4L on for staple removal and wound check as above. 2. You have a follow up appointment with Dr. Shields and the Ostomy Nurses at the [facility] - Audio [facility] 4L on as above, respectively. You will receive a phone call and/or letter in the mail with information about these appointments. Please call [phone] (clinic number for appointments only) to confirm [...] AND HOLIDAYS: ASK FOR THE SURGERY RESIDENT DISCOVERY GUIDE IF ANY OF THE ABOVE OCCUR. Ileostomy Pouching: Disposable 1-piece pouch Name: Danya Argueta Type of Ostomy: Ileostomy Use this procedure as a guide when changing your appliance. Read all instructions, assemble all equipment, and empty contents from pouch before beginning actual change. If you have questions, do not hesitate to call Ora Hernández RN CWOCN or Radha Salvador RN CWOCN at [phone]. Equipment: Company/Order Numbers Wet and dry soft cloth (paper towels) Plastic bag Pen, Scissors, stoma pattern One-piece Pouch Convatec cut-to-fit # 57517 Or Coloplast cut to fit #57809 Protective powder [facility] #: [id number] Stomahesive Paste [facility] #[id number] Non-allergic tape (4 strips) Lexos Media paper tape if necessary Liquid Deodorant Hero M9 #4717 Other Supplies (if any) Procedure: 1. Using [...] apply a dusting of Stomahesive protective powder. [place] off excess powder, or wafer will not [...] Medical Supply: [facility] (Sanjuanita [phone]) or [employer] or [facility], [place], [employer], etc... DIVISION OF COLON AND RECTAL SURGERY High Ileostomy Output Patient Instructions: This content was designed for use in [facility] Division of Colon & Rectal Surgery Patients [...] body) but with coconut water, Pedialyte, or lwhr-ihi-jxgkypm Oral Rehydration Solutions (ORS) available from the pharmacy. 4. If you are having thin watery/loose stool then it needs to be thickened with diet ?? eat stool thickening foods such as the BRAT diet (soft Bananas, white Rice, Applesauce, [place]) as well as cheese, creamy peanut butter, [...] still >1.5L per 24 hours then start beyy-emh-hadqyut Imodium to slow your stool down ?? [...] Ostomy [employer] Ostomy Association of [place]: www.uoaa.org [place] Society of Colon & Rectal Surgeons: www.fascrs.org/patients/treatments_and_screening/ostomy/ [place] College [employer] Surgeons: www.facs.patienteducation/skills/ostomy.html www.facs.org/patienteducation/skills/dvd.html - includes 10 short professionally produced videos includin. Helping your with home care 2. Your Ostomy 3. Your Operation 4. Pouching systems 5. Emptying a Pouch 6. Changing a Pouch 7. Problem Solving 8. Emergencies 9. Knowledge check 10. Ostomy skills (all modules, 27 minutes) These videos are also on Youtube: search for [place] [employer]geons Ostomy Education Skills Below is a list of garment websites we other ostomates have found helpful. We do not endorse or have any financial relationship with any of them ?? [employer] - custom neoprene swimming belts. ?? [employer] Lab[employer] - stylish ostomy underwear and ostomy undergarments ?? Netsize - Dont' feel Different . . . [...] a liquid deodorizer into your pouch--such as [place] M9 drops. Odor offenders in the food [...] Some of these offenders are popcorn, nuts, liberian vegetables, coconut, whole kernel corn, seeds, orange [...] Pt with Ileostomy/Colostomy When to call your physical therapy assistant instructor/ MD Change in Color: The stoma should [...] disposable pouch should be applied. Notify your public administration teacher or MD. Prolapse: The term implies that [...] a box of supplies for him from [facility]. We will discuss pouching options at clinic [...] INPATIENT PROGRESS NOTE ID: Danya Argueta Jr. ([id number]) is a 43 y.o. male admitted on [...] PROGRESS NOTE ID: Danya Hinojosa Ellie Rodriguez ([id number]) is a 43 y.o. male admitted on [...] minimal nausea. Neuro: Pain controlled on dilaudid SUPERVISOR MICROFILM DUPLICATING UNIT, will convert to oral prns -zofran prn [...] INPATIENT PROGRESS NOTE ID: Danya Argueta Jr. ([id number]) is a 43 y.o. male admitted on [...] minimal nausea. Neuro: Pain controlled on dilaudid SUPERVISOR MICROFILM DUPLICATING UNIT; keep until yves PO -zofran prn CV: [...] concerns. TED RUVALCABA MD 03/27/2013 Pager # [phone] * Arianna Beatty - 03/27/2013 7:38 AM EDT COLORECTAL SURGERY INPATIENT PROGRESS NOTE ID: Danya Argueta . ([id number]) is a 43 y.o. male admitted on [...] Neuro: Pain controlled on epidural and dilaudid SUPERVISOR MICROFILM DUPLICATING UNIT -zofran prn -dc epidural today CV: Hx [...] 03/26/2013 10:20 PM EDT Surgery Cross Covering Pin Drafter Operator Note Called to see patient because he [...] respiratory status as he has a Dilaudid SUPERVISOR MICROFILM DUPLICATING UNIT and had just received IV Ativan. He was connected to the oxygen monitor and allowed to go to sleep. Hunter Emmanuel MD [id number] * Nan Parnell RN - 03/26/2013 4:16 PM EDT Acute Pain Service - Epidural Daily Management Physician: Dr. Andriy Metz Time of Service: 1035 AM VITAL [...] mg/ml) infusing at 14 mls/hour Pertinent History: SUPERVISOR MICROFILM DUPLICATING UNIT Hydromorphone 0.2/10/5-used 2 mg in the last [...] notes. NAN PARNELL RN 03/26/2013 Pager # [phone] * Arianna Beatty - 03/26/2013 10:19 AM EDT COLORECTAL SURGERY INPATIENT PROGRESS NOTE ID: Danya Argueta ([id number]) is a 43 y.o. male admitted on [...] Neuro: Pain controlled on epidural and dilaudid SUPERVISOR MICROFILM DUPLICATING UNIT -zofran prn CV: Hx a-fib s/p ablations [...] EDT Nutrition Services NPO Note 03/26/2013 Danya Micaela Argueta Jr. :1970 Admit diagnosis: DAI Wt Readings from [...] CWOCN or Radha Salvador RN CWOCN at [phone]. Equipment: Company/Order Numbers Wet and dry soft cloth (paper towels) Plastic bag Pen, Scissors, stoma pattern One-piece Pouch Convatec cut-to-fit # 99404 Or Coloplast cut to fit #67397 Protective powder Convate #: [id number] Stomahesive Paste Convate #[id number] Non-allergic tape (4 strips) Lexos Media paper tape if necessary Liquid Deodorant Hero M9 #2317 Other Supplies (if any) Procedure: 1. Using [...] apply a dusting of Stomahesive protective powder. [place] off excess powder, or wafer will not [...] Medical Supply: [facility] (Sanjuanita [phone]) or [employer] [facility] or [facility], [place], [employer], etc... High Ileostomy Output Instructions: 1. [...] half with water), coconut water, Pedialyte, or raib-ksk-ajjgcqz Oral Rehydration Salts (ORS) available from the Pharmacy. 4. If you are having thin, watery/loose stool then it needs to be thickened with diet: eat stool thickening foods such as the BRAT diet (Bananas, white Rice, Applesauce and [place]) Take metamucil one TBSP in only 4 oz of water, 2-3 times/day to thicken your stool 5. If your stool becomes thicker but still >1.5 liters/24 hrs then start the tmsc-mfq-zlliuxu Imodium to slow your stool down. Start [...] Pt with Ileostomy/Colostomy When to call your physical therapy assistant instructor/ MD Change in Color: The stoma should [...] disposable pouch should be applied. Notify your public administration teacher or MD. Prolapse: The term implies that [...] a liquid deodorizer into your pouch--such as [place] M9 drops. Odor offenders in the food [...] Some of these offenders are popcorn, nuts, liberian vegetables, coconut, whole kernel corn, seeds, orange [...] Ostomy [employer] Ostomy Association [employer] [place]: www.uoaa.org [place] Society of Colon & Rectal Surgeons: www.fascrs.org/patients/treatments_and_screening/ostomy/ [place] College [employer] Surgeons: www.facs.patienteducation/skills/ostomy.html www.facs.org/patienteducation/skills/dvd.html - includes 10 short professionally produced videos includin. Helping your with home care 2. Your Ostomy 3. Your Operation 4. Pouching systems 5. Emptying a Pouch 6. Changing a Pouch 7. Problem Solving 8. Emergencies 9. Knowledge check 10. Ostomy skills (all modules, 27 minutes) These videos are also on Youtube: search for [place] College [employer] Surgeons Ostomy Education Skills Below is a list of garment websites we other ostomates have found helpful. We do not endorse or have any financial relationship with any of them ?? US PREVENTIVE MEDICINE Ostomy Support System: www.Powin Energy CorporationomyLiving Harvest Foods.Social Plus ?? [employer].Social Plus - custom neoprene swimming belts. ?? OstomySecrets.com - stylish ostomy underwear and ostomy undergarments ?? Comfizz.Social Plus - Dont' feel Different . . . [...] to usual rhythm by the time STAT blend technician here; continue to monitor HR--possible need [...] (1.25 mg/ml) infusing at 14 mls/hour Dilaudid SUPERVISOR MICROFILM DUPLICATING UNIT 0.2-10-5 mg (used 7.2 mg in 24 [...] notes. AFSANEH FREDERICK RN 03/25/2013 Pager # [phone] I performed the above scribed service and agree with the accuracy of the note. * Arianna Beatty - 03/25/2013 8:15 AM EDT COLORECTAL SURGERY INPATIENT PROGRESS NOTE ID: Danya Argueta . ([id number]) is a 43 y.o. male admitted on [...] Neuro: Pain controlled on epidural and dilaudid SUPERVISOR MICROFILM DUPLICATING UNIT -zofran prn CV: Hx a-fib s/p ablations [...] AM EDT Pt mildly diaphoretic/some nausea C/O [id number]---AR aware--in to see-- * Alexei Torres RN - 03/25/2013 5:04 AM EDT aware of 154/99--EKG done--pt remains sinus-tach---labs ordered-- * Alexei Torres RN - 03/25/2013 4:30 AM EDT in to see-- * Alexei Torres RN - 03/25/2013 4:19 AM EDT Pt [...] at 10 mls/hour Heparin 5,000U SC Q12H SUPERVISOR MICROFILM DUPLICATING UNIT: Dilaudid 0.2/10/5, used 4 mg since surgery yesterday Assessment: [...] I am taking down these notes. JAELYN MARTINEZ RN 03/24/2013 Pager # [phone] I performed the above scribed service and agree with the accuracy of the note. * Deidra Shell RN - 03/24/2013 10:52 AM EDT Care Management/ CRC Pager# [phone]/ Assessment and Initial discharge planning S: I don't think that I will be needing home RN visits. I feel confident that I will learn about the pouch emptying and bag change. If I change my mind, I'll let you know. O: Met with patient this morning. Notes reviewed. Patient lives with his Deidra in [facility]. Patient has Medicare Advance [facility] insurance. No Advance Directives on file here at [facility]. 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 At this timepatient is NPO except meds, IVF at 100/hr. Solumedrol 20mg IV q8hr. Ancef IV q8hr [id number], Flagyl IV q8hr [id number]. Epidural with Bupivicaine. Hydromorphone SUPERVISOR MICROFILM DUPLICATING UNIT. Pope to gravity. Ileostomy pouch intact. Enterostomal [...] INPATIENT PROGRESS NOTE ID: Danya Argueta Jr. ([id number]) is a 43 y.o. male admitted on 03/23/2013, now 1 Day Post-Op 24 Hour Events/Subjective: - Patient feels well this AM, pain well controlled with dilaudid SUPERVISOR MICROFILM DUPLICATING UNIT - Denies BM, or flatus, with slight [...] Neuro: Pain controlled on epidural and dilaudid SUPERVISOR MICROFILM DUPLICATING UNIT -zofran prn CV: No history of cardiovascular [...] weaned to 2L. Pt sleeping soundly/snoring upon director pharmaceutical; upon awakening reporting 8/10 pain over abdomen, encouraged to use SUPERVISOR MICROFILM DUPLICATING UNIT. Epidural intact, T6-T8 levels. Midline DSD and [...] Floor status, Full code Hunter Emmanuel MD [id number] * Nan Parnell RN - 03/23/2013 6:36 [...] sleeping unless disturbed. Nan Parnell RN Beeper [id number] * Do Hay RN - 03/23/2013 5:19 PM EDT 1715 report taken and care assumed. Alarms checked and customized for this pt based on his needs. nhs 1830 Pt dozing. Does not appear to [...] chloride 10 mEq Intravenous Q2H ??? [DISCONTINUED] SUPERVISOR MICROFILM DUPLICATING UNIT nieves ??? lisinopril 10 mg Oral Daily [...] Stopped (03/29/131835) ??? [DISCONTINUED] HYDROmorphone ??? [DISCONTINUED] SUPERVISOR MICROFILM DUPLICATING UNIT nieves PRN Meds:ibuprofen, HYDROmorphone, HYDROmorphone, HYDROmorphone, [DISCONTINUED] [...] risk assessment for score and interventions. Call ellie within reach. Pt. Encouraged to ring for [...] Absent and monitoring Pt. Transitioned off of SUPERVISOR MICROFILM DUPLICATING UNIT today. Pt. Started on scheduled Tylenol & PRN Dilaudid. Pt. Reportsadequate pain control with current regimen. Problem: Skin Integrity Impairment, Risk/Actual (Adult, Obstetric) Goal: Skin Integrity Impairment, Risk/Actual: Skin Integrity/Wound Healing Outcome: Present (see interventions, notes) Midline incision with drake PRECISION MACHINE OPERATOR intact. Area of redness around incision marked. [...] well to scheduled IV metoprolol (5mg q6h) [id number] daily lisinopril. He also experienced some orthostasis [...] 11:00 AM Nurse, General Surgery [facility] [address] [place] [address] 04/07/2013 11:00 AM Ostomy Nurse, General Surgery [facility] [address] [place] [address] 05/03/2013 4:00 PM Pillo Avina MD [facility] [address] [place] [address] 05/03/2013 4:00 PM Ostomy Nurse, General Surgery [facility] [address] [place] [address] Outpatient Services/Studies: No discharge procedures on file. [...] at the General Surgery Outpatient Clinic - Audio Engineer 4L on for staple removal and wound check as above. 2. You have a follow up appointment with Dr. Shields and the Ostomy Nurses at the General Surgery Outpatient [facility] - Audio Engineer 4L on as above, respectively. You will receive a phone call and/or letter in the mail with information about these appointments. Please call [phone] (clinic number for appointments only) to confirm [...] AND HOLIDAYS: ASK FOR THE SURGERY RESIDENT DISCOVERY GUIDE IF ANY OF THE ABOVE OCCUR. Ileostomy Pouching: Disposable 1-piece pouch Name: Danya Argueta Type of Ostomy: Ileostomy Use this procedure as a guide when changing your appliance. Read all instructions, assemble all equipment, and empty contents from pouch before beginning actual change. If you have questions, do not hesitate to call Ora Hernández RN CWOCN or Radha Salvador RN CWOCN at [phone]. Equipment: Company/Order Numbers Wet and dry soft cloth (paper towels) Plastic bag Pen, Scissors, stoma pattern One-piece Pouch Convatec cut-to-fit # 42506 Or Coloplast cut to fit #37250 Protective powder Convate #: [id number] Stomahesive Paste [facility] #[id number] Non-allergic tape (4 strips) Lexos Media paper tape if necessary Liquid Deodorant Hero [...] apply a dusting of Stomahesive protective powder. [place] off excess powder, or wafer will not [...] into the hospital. Pharmacy or Medical Supply: [facility] (Sanjuanita [phone]) or [facility] or [facility], [place], [employer], etc... DIVISION OF COLON AND RECTAL SURGERY High Ileostomy Output Patient Instructions: This content was designed for use in [facility] Division of Colon & Rectal Surgery Patients [...] body) but with coconut water, Pedialyte, or ubgu-dnq-rxidwdj Oral Rehydration Solutions (ORS) available from the pharmacy. 4. If you are having thin watery/loose stool then it needs to be thickened with diet ?? eat stool thickening foods such as the BRAT diet (soft Bananas, white Rice, Applesauce, [place]) as well as cheese, creamy peanut butter, [...] still >1.5L per 24 hours then start jmhu-lqh-kptboki Imodium to slow your stool down ?? [...] Ostomy [employer] Ostomy Association [place]: www.uoaa.org [place] Society of Colon & Rectal Surgeons: www.fascrs.org/patients/treatments_and_screening/ostomy/ [place] College [employer] Surgeons: www.facs.patienteducation/skills/ostomy.html www.facs.org/patienteducation/skills/dvd.html - includes 10 short professionally produced videos includin. Helping your with home care 2. Your Ostomy 3. Your Operation 4. Pouching systems 5. Emptying a Pouch 6. Changing a Pouch 7. Problem Solving 8. Emergencies 9. Knowledge check 10. Ostomy skills (all modules, 27 minutes) These videos are also on Youtube: search for [place] College [employer]geons Ostomy Education Skills Below is a list of garment websites we other ostomates have found helpful. We do not endorse or have any financial relationship with any of them ?? [employer] - custom neoprene swimming belts. ?? OstomySeBest Bid.Social Plus - stylish ostomy underwear and ostomy undergarments ?? Netsize - Dont' feel Different . . . [...] a liquid deodorizer into your pouch--such as [place] M9 drops. Odor offenders in the food [...] Some of these offenders are popcorn, nuts, liberian vegetables, coconut, whole kernel corn, seeds, orange [...] Pt with Ileostomy/Colostomy When to call your physical therapy assistant instructor/ MD Change in Color: The stoma should [...] disposable pouch should be applied. Notify your public administration teacher or MD. Prolapse: The term implies that [...] AND HOLIDAYS: ASK FOR THE SURGERY RESIDENT DISCOVERY GUIDE Signed: ARIANNA BEATTY MD 03/30/2013 * Plan of Care - Hortencia Stoery - 03/29/2013 12:01 PM EDT Problem: Pain, [...] and sodium chloride 0.45% 100 mL/hr (03/28/13 1447) ??? HYDROmorphone ??? SUPERVISOR MICROFILM DUPLICATING UNIT nieves PRN Meds:calcium carbonate, nalOXone, albuterol, prochlorperazine, [...] flowsheet. Pt. Reporting good relief with dilaudid web manager. Pt. Encouraged to let RN know if [...] - Pain, Acute (Adult, Obstetric) Patient using SUPERVISOR MICROFILM DUPLICATING UNIT appropriately, denies need for additional pain medication. [...] flowsheet. Pt. Reporting good relief with dilaudid web manager. Pt. Encouraged to let RN know if [...] Pt states good pain relief with Dilaudid SUPERVISOR MICROFILM DUPLICATING UNIT. See doc flow sheets. Problem: Trauma/Injury Risk [...] flowsheet. Pt. Reporting good relief with dilaudid web manager. Pt. Encouraged to let RN know if [...] in halls and up to chair; has SUPERVISOR MICROFILM DUPLICATING UNIT and epideral for pain control; continue toassess [...] patent. * Med Student Progress Note - VickieAlejandra - 03/26/2013 5:40 AM EDT Patient ID: [...] has been manageable, but reports using the SUPERVISOR MICROFILM DUPLICATING UNIT more frequently overnight. Inpatient Medications: Scheduled Meds: [...] 100 mL/hr (03/24/13 2337) ??? HYDROmorphone ??? SUPERVISOR MICROFILM DUPLICATING UNIT nieves ??? BUpivacaine 0.125% in NS 14 [...] cyanosis Labs: Recent Labs Basename 03/25/13 0509 03/24/1361103/23/13 1715 WBC 11.6* -- -- RBC 3.79* [...] to be well-controlled on current regimen of SUPERVISOR MICROFILM DUPLICATING UNIT and epidural, may consider using NSAIDs instead [...] more days. Sources: Susie Garibay. Postoperative Ileus. Revolymer. * Plan of Care - Lauren Clarke RN - 03/26/2013 1:48 AM EDT Problem: Pain, Acute (Adult, Obstetric) Goal: Acute Pain: Acceptable Pain Control/Comfort Level - Pain, Acute (Adult, Obstetric) Outcome: Present (see interventions, notes) Patient reports minimal pain, using SUPERVISOR MICROFILM DUPLICATING UNIT, minimal coverage with Epidural. Will continue to [...] incisional discomfort; has epideral and is using SUPERVISOR MICROFILM DUPLICATING UNIT appropriately to maintain tolerable level of comfort; [...] had one episode of a rate in [id number]. CBC was ordered and was within normal [...] 100 mL/hr (03/24/13 2337) ??? HYDROmorphone ??? SUPERVISOR MICROFILM DUPLICATING UNIT nieves ??? BUpivacaine 0.125% in NS 14 mL/hr (03/25/13 5757) ??? [DISCONTINUED] sodium chloride 0.9% with potassium [...] Intake/Output Summary (Last 24 hours) at 03/25/13 0539 Last data filed at 03/25/13 0500 Gross [...] RDWCV 13.7 -- -- Recent Labs Basename 03/24/1361103/23/13 1715 NA -- -- K 4.6 4.2 [...] a recurrence. Plan: NEURO: continue epidural and SUPERVISOR MICROFILM DUPLICATING UNIT, pain has been well-controlled CV: consider starting [...] monitoring Pt has cosistently denied pain this night--SUPERVISOR MICROFILM DUPLICATING UNIT appears adequate for pain control-- * Plan of Care - Lauren Clarke RN - 03/24/2013 4:47 PM EDT Problem: Pain, Acute (Adult, Obstetric) Goal: Acute Pain: Acceptable Pain Control/Comfort Level - Pain, Acute (Adult, Obstetric) Outcome: Present (see interventions, notes) Patient reports increase levels of pain, pain team notified and adjustments made. Patient reports improvement with pain levels Vebalizes and demonstrates understanding of SUPERVISOR MICROFILM DUPLICATING UNIT Problem: Trauma/Injury Risk (Adult, Obstetric) Goal: Trauma/Injury [...] wound when walking but usespain medication form SUPERVISOR MICROFILM DUPLICATING UNIT effectively. R- Patient is able to move [...] back to improve coverage and use of SUPERVISOR MICROFILM DUPLICATING UNIT is encouraged, warm pack is ordered and administered. R-Patient still complains of pain at incision site and rates pain at 6/10. * Miscellaneous - Provider, Scanning - 03/24/2013 3:04 PM EDT * Initial Assessments - Martha Heller, PT - 03/24/2013 10:55 AM EDT Physical Therapy Evaluation Patient profile: Danya Argueta is a 43 y.o. male admitted to [facility] on 03/23/2013 by Pillo Suresh MD with UC. Patient was taken to the OR on 03/23/2013 for total colectomy with ileostomy. Patient is currently residing on [facility]. PT referral received. PMH: Past Surgical History Procedure Date ??? Colonoscopy, biopsy 12/24/2011 COLONOSCOPY FLEXIBLE, WITH BX performed by ANDREW BRADLEY at [facility] ??? Colonoscopy, diagnostic 01/11/2013 COLONOSCOPY, DIAGNOSTIC performed by Pillo Avina MD at [facility]COPY ??? Colonoscopy, biopsy 01/11/2013 COLONOSCOPY FLEXIBLE, WITH BX performed by Pillo Avina MD at [facility]COPY ??? Removal colon/ileostomy 03/23/2013 @COLECTOMY, TOTAL WITH ILEOSTOMY performed by Pillo Avina MD at [facility] MA[facility] OR Social History: Patient lives in [...] physical therapy consult. Abigail Starks 03/24/2013 Pager: [phone] Physical Therapy Student Rehabilitation Department Chart reviewed. I was present throughout the above physical therapy session. I have reviewed and agree with the above documentation and plan. Martha Heller, VIOLETTA Pager #: [phone] * Plan of Care - Lauren Blas RN - 03/24/2013 6:45 AM EDT Problem: Pain, Acute (Adult, Obstetric) Goal: Acute Pain: Acceptable Pain Control/Comfort Level - Pain, Acute (Adult, Obstetric) Outcome: Therapy, goal partially met Pain tolerable 6/10 with Dilaudid SUPERVISOR MICROFILM DUPLICATING UNIT and epidural. Will continue to monitor for [...] closure of the rectum. Surgeon: Dr. Avina. General Manager Food: Dr. Cisneros. Anesthesia: General. Indications: The patient [...] general anesthesia, the patient was placed in [facility]. The abdomen and perineum were prepped and draped in the usual fashion. Pope catheter was inserted using aseptic technique. Midline incision was performed. Exploration of the abdomen revealed a very bulky, fatty omentum. The liver was normal to palpation. The gallbladder was soft and thin walled without palpable stones. The foramen of Cope was patent. There was no mass in [...] rectum had previously been decompressed with a 24-Slovenian Malecot catheter placed in the rectum. A [...] Note Patient Name: Danya Argueta Jr. : [id number] MR#: [id number] Case Date: 03/23/2013 Surgeon: Surgeon(s) and Role: * Pillo Avina MD - Primary * Merlyn Cisneros MD - Resident-Surgeon Chief Preoperative diagnosis: DAI [...] Scanning - 03/23/2013 2:14 PM EDT * Miscellaneous - Provider, Scanning - 03/23/2013 2:08 PM [...] Results * Potassium (03/30/2013 6:05 AM EDT) Pathologist [facility] Potassium 3.6 3.5 - 5.0 mmol/L CERNER [...] In Lab Pillo Avina MD CHEMISTRY ORDERABLES [facility] * (ABNORMAL) Urinalysis with microscopic (03/29/2013 2:54 PM EDT) Pathologist [facility] Glucose UA Negative Negative mg/dL CERNER MILLENNIUM [...] Appearance UA Clear Clear CERNER MILLENNIUM Spec [place] UA 1.021 1.002 - 1.030 CERNER MILLENNIUM [...] Avina MD URINE ORDERABLES Performing Organization Address City/[facility]/ZIP Co de Phone Number [facility] JOSE JUANENNIUM * (ABNORMAL) Differential, Automated (03/29/2013 9:22 AM [...] EDT Pillo Avina MD HEMATOLOGY ORDERABLE S NATHALY MILLERIUM * (ABNORMAL) CBC (with Diff) (03/29/2013 9:22 [...] Lab Pillo Avina MD HEMATOLOGY ORDERABLE S [facility] * (ABNORMAL) Basic Metabolic Panel (non-fasting) (03/29/2013 6:44 AM EDT) [facility] Glucose Lvl 106 60 - 199 mg/dL CERNER MILLENNIUM Comment:Diabetes: >=200 mg/d L plus symptoms BUN 18 10 - 20 mg/dL CERNER MILLENNIUM Creatinine 0.91 0.80 - 1.50 mg/dL CERNER MILLENNIUM Comment: Please note that the pediatric reference intervals supplied above were not validated at [facility]. Results from pediatric patients should be interpreted [...] Metabolic Panel (non-fasting) (03/27/2013 11:05 AM EDT) [facility] Glucose Lvl 104 60 - 199 mg/dL CERNER MILLENNIUM Comment:Diabetes: >=200 mg/d L plus symptoms BUN 29(H) 10 - 20 mg/dL CERNER MILLENNIUM Creatinine 0.99 0.80 - 1.50 mg/dL CERNER MILLENNIUM Comment: Please note that the pediatric reference intervals supplied above were not validated at [facility]. Results from pediatric patients should be interpreted [...] intervals supplied above were not validated at [facility]. Results from pediatric patients should be interpreted [...] Avina MD CHEMISTRY ORDERABLES Performing Organization Address [facility]/[place] de Phone Number CERNER MILLENNIUM * EKG 12 Lead (03/25/2013 1:09 PM EDT) Ventricular rate 97 BPM MUSE SYSTEM Atrial Rate 97 BPM MUSE SYSTEM P-R Interval 132 ms MUSE SYSTEM QRS Duration 84 ms MUSE SYSTEM Q-T Interval 336 ms MUSE SYSTEM QTC Calculated (Bezet) 426 ms MUSE SYSTEM Calculated P Silt 68 degrees MUSE SYSTEM Calculated R Silt 63 degrees MUSE SYSTEM Calculated T Silt 49 degrees MUSE SYSTEM INTERPRETATION Normal sinus rhythm Normal ECG When compared with ECG of 25-MAR-2013 04:48, No significant change was found Confirmed by MD ROSALBA, BRIDGET ([id number]) on 03/25/2013 9:44:04 PM MUSE SYSTEM 03/25/2013 1:09 PM EDT 03/25/2013 9:44 PM EDT Pillo Avina MD ECG ORDERABLES Performing Organization Address [facility]/[place] de Phone Number MUSE SYSTEM * (ABNORMAL) [...] intervals supplied above were not validated at [facility]. Results from pediatric patients should be interpreted [...] Avina MD CHEMISTRY ORDERABLES Performing Organization Address [facility]/[place] de Phone Number NATHALY MILLERVidSchool * EKG 12 Lead (03/25/2013 4:48 AM EDT) Ventricular rate 107 BPM MUSE SYSTEM Atrial Rate 107 BPM MUSE SYSTEM P-R Interval 134 ms MUSE SYSTEM QRS Duration 82 ms MUSE SYSTEM Q-T Interval 318 ms MUSE SYSTEM QTC Calculated (Bezet) 424 ms MUSE SYSTEM Calculated P Silt 66 degrees MUSE SYSTEM Calculated R Silt 55 degrees MUSE SYSTEM Calculated T Silt 52 degrees MUSE SYSTEM INTERPRETATION Sinus tachycardia Otherwise normal ECG When compared with ECG of 24-MAR-2013 16:10, No significant change was found Confirmed by MD NAVARRETE BRUCE ([id number]) on 03/25/2013 9:21:03 AM MUSE SYSTEM 03/25/2013 4:48 AM EDT 03/25/2013 9:21 AM EDT Pillo Avina MD ECG ORDERABLES Performing Organization Address [facility]/[place] de Phone Number MUSE SYSTEM * EKG 12 Lead (03/24/2013 4:10 PM EDT) Ventricular rate 115 BPM MUSE SYSTEM Atrial Rate 115 BPM MUSE SYSTEM P-R Interval 130 ms MUSE SYSTEM QRS Duration 82 ms MUSE SYSTEM Q-T Interval 316 ms MUSE SYSTEM QTC Calculated (Bezet) 437 ms MUSE SYSTEM Calculated P Silt 54 degrees MUSE SYSTEM Calculated R Silt 46 degrees MUSE SYSTEM Calculated T Silt 50 degrees MUSE SYSTEM INTERPRETATION Sinus tachycardia Minimal voltage criteria for LVH, may be normal variant Nonspecific T wave abnormality Abnormal ECG No previous ECGs available Confirmed by MD NAVARRETE BRUCE ([id number]) on 03/24/2013 10:23:37 PM MUSE SYSTEM 03/24/2013 4:10 PM EDT 03/24/2013 10:23 PM EDT Pillo Avina MD ECG ORDERABLES Performing Organization Address [facility]/[place] de Phone Number MUSE SYSTEM * (ABNORMAL) Hemoglobin and Hematocrit, blood (03/24/2013 6:12 AM EDT) Hemoglobin 12.7(L) 13.7 - 17.5 gm/dL CERNER MILLENNIUM Hematocrit 38.4(L) 40.0 - 51.0 % CERNER MILLENNIUM Blood specimen (specimen) 03/24/2013 6:12 AM EDT 03/24/2013 6:19 AM EDT Narrative Resulting Agency Comment Spec In Lab Pillo Avina MD HEMATOLOGY ORDERABLE S Performing Organization Address [facility] de Phone Number CERJAKE MANZANOENNIUM * Potassium (03/24/2013 6:12 AM EDT) Potassium [...] Avina MD CHEMISTRY ORDERABLES Performing Organization Address [facility] Co de Phone Number CERNER MILLENNIUM * (ABNORMAL) Hemoglobin and Hematocrit, blood (03/23/2013 5:15 PM EDT) Hemoglobin 13.4(L) 13.7 - 17.5 gm/dL CERNER MILLENNIUM Hematocrit 40.6 40.0 - 51.0 % CERNER MILLENNIUM Blood specimen (specimen) 03/23/2013 5:15 PM EDT 03/23/2013 5:27 PM EDT Narrative Resulting Agency Comment Spec In Lab Pillo Avina MD HEMATOLOGY ORDERABLE S Performing Organization Address [facility] Co de Phone Number NATHALY MILLERIUM * Potassium (03/23/2013 5:15 PM EDT) Potassium [...] Resulting Agency Comment Spec In Lab Pillo Avnia MD CHEMISTRY ORDERABLES Performing Organization Address [facility] Co de Phone Number NATHALY MILLERIUM * (ABNORMAL) BLOOD GAS 2 ARTERIAL (03/23/2013 3:32 PM EDT) pH Art 7.37 CERNER MILLENNIUM pCO2 Art 39 mmHg CERNER MILLENNIUM pO2 Art 327(H) mmHg CERNER MILLENNIUM HCO3 Art 22.1 mmol/L CERNER MILLENNIUM BE Art -3.1(L) mmol/L CERNER MILLENNIUM Hgb Blood Gas 14.0 gm/dL CERNER MILLENNIUM Comment: Total Hemoglobin (in gm/dL) ?Based on [facility] Hematology ranges: ?Age ?Reference Range Less than [...] PM EDT Pillo Avina MD CHEMISTRY ORDERABLES CERNER PAULIUM * Surgical Pathology Report (03/23/2013 3:21 PM EDT) Surgical Pathology Report ? [facility] ? Provider: ?? PILLO AVINA ?Pt. Name: ?? ELLIE RODRIGUEZ, DANYA Hinojosa ? Acc #: ?[id number] ?Pt. ? Col Date: ?? 03/23/2013 ?/Sex: [...] colon. ? External Architecture: Preserved. ? Serosa: Shallowater, smooth and glistening. ? Mucosa: Red with [...] Specimen Submitted: ? A - Colon ? [facility] ? Provider: ?? PILLO AVINA ?Pt. Name: ?? ELLIE RODRIGUEZ, DANYA Hinojosa ? Acc #: ?[id number] ?Pt. ? Col Date: ?? 03/23/2013 ?/Sex: ?1970,(43 years),Male ? Rec Date: ?? 03/23/2013 ?LOC: ?4WST ? SURGICAL PATHOLOGY ? Clinical History: ? DAI ? Clinical Diagnosis: ? Same [facility] 03/23/2013 3:21 PM EDT Pillo Avina MD PATHOLOGY/CYTOLOGY O RDERABLES NATHALY VALERA * Specimen to Pathology (surgical [...] 51(Critica l) mmHg CERNER MILLENNIUM Comment:Noted by instrument maintenance supervisor. pO2 Art 154(H) mmHg CERNER MILLENNIUM HCO3 Art 25.5 mmol/L CERNER MILLENNIUM BE Art -0.6 mmol/L CERNER MILLENNIUM Hgb Blood Gas 14.4 gm/dL CERNER MILLENNIUM Comment: Total Hemoglobin (in gm/dL) ?Based on [facility] Hematology ranges: ?Age ?Reference Range Less than [...] PM EDT Pillo Avina MD CHEMISTRY ORDERABLES [facility] documented in this encounter Visit Diagnoses Not on filedocumented in this encounter Administered Medications Inactive Administered Medications - up to 3 most recent administrations Medication Order MAR Action Action Date Dose Rate Site bacitracin injection ONCE PRN, Starting on Fri03/23/13 at 1250, Until Fri03/23/13 at 2042, Intra-Operative (Intra-Procedure), Routine Given 03/23/2013 12:50 PM EDT 50,000 Units 19- Surgical Site neomycin-polymyxin B (NEOSPORIN) irrigation solution ONCE PRN, Starting on Fri03/23/13 at 1250, Until Fri03/23/13 at 2042, Intra-Operative (Intra-Procedure) Given 03/23/2013 12:50 PM EDT 1 mL 19- Surgical Site documented in this encounter Active and Recently Administered Medications Times are shown in EDT. Scheduled Medication Order 03/28/2013 03/29/2013 03/30/2013 acetaminophen (TYLENOL) tablet 1,000 mg 1,000 mg, Oral, EVERY 6 HOURS, First dose on Fri03/29/13 at 1000, Until Discontinued, Maximum dose of [...] administration 0900 (Given - Provider: Karlee Blanco RN)2039 [...] Hortencia Storey) 0852 (Given - Provider: Lisa Sanz, MATTHEW) psyllium packet 1 packet 1 packet, Oral, 2 TIMES DAILY, First dose on Fri03/30/13 at 0900, Until Discontinued, Routine 0900 (Due) sodium chloride 0.9 % flush 10 mL (CANCELED) 10 mL, Intravenous, EVERY 8 HOURS SCHEDULED, First dose on Fri03/23/13 at 2200, Until Discontinued, Routine 0600 (Given - Provider: Niya Metz RN)1312 (Given - Provider: Lisa Leonardo RN)2200 (Given - Provider: Niya Metz RN) 0600 (Given - Provider: Niya Metz RN)1400 (Not Given - Provider: Hortencia Storey - Reason: See comment - Comment: IV was infusing)2200 (Given - Provider: Niya Metz RN) 0600 (Given - Provider: Niya Metz RN) Continuous Medication Order 03/28/2013 03/29/2013 03/30/2013 [...] Routine documented in this encounter Care Teams Business Insight And Analytics Manager Relationship Specialty Start Date End Date Lisa Roberts MD [address] [place] [address] PCP - General 05/24/11 documented as of this encounter
--- OUTSIDE RECORDS SUMMARY | 2023-12-15 15:49 | XMS_ITS | Encounter Summary ---
Author Organization [facility] Address [facility] [place] [address] Care Team Providers Care Technical Report Writer Name Role Phone Lisa Mayorga MD Primary Care Provider [phone] Encounter Details Date Type Department Care Team (Latest Contact Info) Description 12/24/2011 11:00 AM EDT - 12/24/2011 2:55 PM EDT Hospital [place] [address] Madi Thomas MD [facility] [place] [address] Discharge Disposition: Home Social History Tobacco Use [...] Sign Reading Time Taken Comments Blood Pressure 122/99 12/24/2011 2:10 PM EDT Pulse 78 12/24/2011 2:10 PM EDT Temperature 36.4 ??C (97.5 ??F) 12/24/2011 12:22 PM E DT Respiratory Rate 16 12/24/2011 2:10 PM EDT Oxygen Saturation 96% 12/24/2011 2:10 PM EDT Inhaled Oxygen Concentration - - Weight - - Height - - Body Mass Index - - documented in this encounter Discharge Instructions * Discharge Instructions* Stepan Marquez RN - 12/24/2011 2:10 PM EDT You may have received medication before and/or during your procedure which effects judgement and reaction time. Do not drive, operate machinery, drink alcoholic beverages, or make important decisions for 24 hours. Be careful on stairs, as you may be unsteady on your feet. You may eat a regular diet as tolerated. Do not smoke if you are alone. IV site -- slight redness or tenderness is normal. You may use a warm compress. If tenderness and redness increases or foul drainage occurs please contact your M.D. Please call [phone] before 5 pm with problems, questions or concerns. After 5pm call [phone] and ask to speak with the combination machine tender clinical application specialist. Discharge instructions reviewed with patient who expresses understanding. * Attachments The following attachments cannot be sent through Care Everywhere. * COLONOSCOPY: WHAT TO EXPECT AT HOME ([place]) documented in this encounter Medications at Time of Discharge Medication Sig Dispensed Refills Start Date End Date albuterol (PROVENTIL HFA;VENTOLIN HFA) 90 mcg/actuation inhaler Inhale 2 puffs into the lungs 4 times daily as needed. Use with spacer gabapentin (NEURONTIN) 300 mg capsule Take 1 capsule by mouth 3 times daily. 11/06/2011 02/12/2013 PARoxetine (PAXIL) 40 mg tablet Take 40 mg by mouth every morning. 09/18/2017 simvastatin (ZOCOR) 40 mg tablet Take 20 mg by mouth daily. 02/12/2013 fluticasone-salmeterol (ADVAIR) 250-50 mcg/dose diskus inhaler Inhale 1 puff into the lungs 2 times daily. 02/22/2019 montelukast (SINGULAIR) 10 mg tablet Take 10 mg by mouth daily. 09/18/2017 documented as of this encounter H&P Notes * Madi Thomas MD - 12/24/2011 1:25 PM EDT Gastroenterology and Hepatology Pre-Procedure History and Physical Exam Procedure: Colonoscopy: Indication: uc assess surveillance Patient Active Problem List Diagnoses Code ??? Tremor 781.0AC EXAM: HEENT: Airway examined, oropharynx clear LUNGS: Clear to auscultation HEART: Regular rate and rhythm, normal S1, S2 ABDOMEN: Normal bowel sounds, soft, non tender, non distended, A/P Proceed with the planned endoscopic procedure. Risks and benefits of the procedure explained to the patient. Consent signed. documented in this encounter Miscellaneous Notes * Miscellaneous - Provider, Scanning - 12/25/2011 3:38 AM EDT * Miscellaneous - Provider, Scanning - 12/24/2011 12:10 PM EDT documented in this encounter Plan of Treatment Not on file documented as of this encounter Procedures Procedure Name Priority Date/Time Associated Diagnosis Comments SURGICAL PATHOLOGY REPORT Routine 12/24/2011 3:47 PM EDT SPECIMEN TO PATHOLOGY Routine 12/24/2011 2:06 PM EDT SPECIMEN TO PATHOLOGY Routine 12/24/2011 2:06 PM EDT COLONOSCOPY FLEXIBLE, WITH BX (WRVU 3.56) 12/24/2011 1:30 PM EDT Ulcerative Colitis (local) COLONOSCOPY Routine 12/24/2011 1:21 PM EDT documented in this encounter Results * SURGICAL PATHOLOGY REPORT (12/24/2011 3:47 PM EDT) Surgical Pathology Report ? [facility] ? Provider: ?? MADI THOMAS ?Pt. Name: ?? MARK CULP, DANYA Hinojosa ? Acc #: ?[id number] ?Pt. ? Col Date: ?? 12/24/2011 ? /Sex: ?1970,(41 years),Male ? Rec Date: ?? 12/24/2011 ? LOC: ?4T ? SURGICAL PATHOLOGY ? ---Pathologic Diagnosis--- ? Endoscopic biopsies: ? A - Random right colon, ? Colonic mucosa within normal limits. Inactive well-healed chronic ? colitis cannot be ruled out. No dysplasia is seen. ? B - Random left colon, ? Hyperplastic polyp. ? Inflammatory polyp. ? Colonic mucosa within normal limits. Inactive well-healed chronic ? colitis cannot be ruled out. No dysplasia is seen. ? CR-PX ? 12/25/11 ? XL ? 12/25/11 Verified by: ? Moe LUU, Muna ? Pathologist ? (Electronic Signature) ? The attending pathologist whose signature appears on this report has ? reviewed all diagnostic slides and has edited the gross and/or ? microscopic portion of the report in rendering the final pathologic ? diagnosis. ? ---Comment--- ? Additional levels examined on A and B. ? ---Microscopic Description--- ? Slides reviewed, microscopic description not recorded. ? ---Gross Description--- ? A - Labeled/Fixative : Random Bx of the right colon, formalin. ? Qty/Size/Weight: ?Multiple fragments, ranging from 0.2 cm to ? 0.3 cm in greatest dimension. ? Tissue Description: ?? Soft, garduno tissues. ? Sections/Process ing: ??(T3) ? B - Labeled/Fixative : Random biopsy of the left colon, formalin. ? Qty/Size/Weight: ?Multiple fragments, ranging from 0.2 cm to ? 0.4 cm in greatest dimension. ? Tissue Description: ?? Soft, garduno tissues. ? Sections/Process ing: ??(T4) ??vms/EJR ? [facility] ? Provider: ?? MADI THOMAS ?Pt. Name: ?? MARK CULP, DANYA Hinojosa ? Acc #: ?[id number] ?Pt. ? Col Date: ?? 12/24/2011 ? /Sex: ?1970,(41 years),Male ? Rec Date: ?? 12/24/2011 ? LOC: ?4T ? SURGICAL PATHOLOGY ? ---Clinical Information--- ? Specimen Submitted: ? A - Random bx of the right colon surveillance ? B - Random bx of the left colon ? Clinical History/Diagnosi s: ? Pt with burned-out inactive colitis, R/O dysplasia NATHALY VALERA 12/24/2011 3:47 PM EDT Madi Thomas MD PATHOLOGY/CYTOLOGY O RDERASHIRLEY NATHALY VALERA * Specimen to Pathology (surgical or derm) (12/24/2011 2:06 PM EDT) AP Specimen 12/24/2011 2:06 PM EDT 12/24/2011 2:06 PM EDT Narrative MELIAJAKE MANZANOMILIIUM - 12/24/2011 2:06 PM EDT Specimen requisition ordered. ??Separate Pathology report to follow Madi Thomas MD PATHOLOGY/CYTOLOGY O TAMANNA NATHALY VALERA * Specimen to Pathology (surgical or derm) (12/24/2011 2:06 PM EDT) AP Specimen 12/24/2011 2:06 PM EDT 12/24/2011 2:06 PM EDT Narrative NATHALY VALERA - 12/24/2011 2:06 PM EDT Specimen requisition ordered. ??Separate Pathology report to follow Madi Thomas MD PATHOLOGY/CYTOLOGY O TAMANNA NATHALY VALERA * COLONOSCOPY (12/24/2011 1:21 PM EDT) COLONOSCOPY [facility] ___ Patient Name: Danya Argueta ? Procedure Date: 12/24/2011 1:21 PM ? N: [id number] ? Date of : 1970 ? Age: 41 ? Order #: [id number] ? ___ Procedure: ? Colonoscopy Indications: ? long h/o UC, assess disease activity, ? recently weaned off Prednisone on no ? IBD medications Providers: ? Madi Thomas MD, Maryann Maxwell ? Emilia, MATTHEW, Hay Horta, Broach Operator Referring MD: ?Lisa Mayorga MD Medicines: ? Midazolam 3 mg IV, Fentanyl 150 ? micrograms IV, Diphenhydramine 50 mg ? IV Complications: ? No immediate complications. ___ Procedure: ? Pre-Anesthesia Assessment: ? - ASA Grade Assessment: II - A ? patient with mild systemic disease. ? The procedure, indications, benefits, ? risks [...] The Colonoscope was inserted in the ? and under direct visualization, ? advanced to. Careful inspection was ? made as the colonoscope was ? withdrawn. The colonoscopy was ? performed without difficulty. The ? patient tolerated the procedure well. ? The quality of the bowel preparation ? was excellent. ? Findings: ? Colon: The colon had a whitish scarred appearance ? throughout. There was no active inflammation. There ? were a few scattered pseudopolyps in left colon. ? Random bx throughout left and right colon, ? surveillance protocol.A few small-mouthed diverticula ? were found in the sigmoid colon. Internal hemorrhoids ? were found during retroflexion and were small. The ? terminal ileum appeared normal. ? Impression: ?- Diverticulosis in the sigmoid colon. ? - Internal hemorrhoids. ? - The examined portion of the ileum ? was normal. ? No active colitis. ? Colon had a burned out scarred ? appearance Recommendation: ?Treat with Immodium or Lomotil for ? mild diarrhea. ? Await path r/o dysplasia ? Continue off of steroids ? Madi Thomas MD 12/24/2011 2:19 PM ? Number of Addenda: 0 Note Initiated On: 12/24/2011 1:21 PM [employer]OVATION 12/24/2011 1:21 PM EDT Lisa Mayorga MD GENERAL SURGICAL ORD ERABLES [employer] documented in this encounter Visit Diagnoses Not on filedocumented in this encounter Active and Recently Administered Medications Times are shown in EDT. PRN Medication Order 12/22/2011 12/23/2011 12/24/2011 fentaNYL 50mcg/mL injection (CANCELED) ONCE PRN, Starting on Fri12/24/11 at 1333, Until Fri12/24/11 at 1812, Pain, Intra-Operative (Intra-Procedure), Routine 1333 (Given - Provid er: Maryann Nieto RN)1336 (Given - Provider: Maryann Nieto RN)1342 (Given - Provider: Maryann Nieto RN) midazolam (VERSED) injection (CANCELED) ONCE PRN, Starting on Fri12/24/11 at 1333, Until Fri12/24/11 at 1812, Sleep, Intra-Operative (Intra-Procedure), Routine 1333 (Given - Provid er: Maryann Nieto RN)1336 (Given - Provider: Maryann Nieto, RN)1342 (Given - Provider: Maryann Nieto RN) documented in this encounter Care Teams Technical Report Writer Relationship Specialty Start Date End Date Lisa Mayorga MD [address] [place] [address] PCP - General 05/24/11 documented as of this encounter
--- OUTSIDE RECORDS SUMMARY | 2023-12-15 15:49 | XMS_ITS | Encounter Summary ---
Author Organization Formerly [facility], [facility] Address [facility] [place] [address] Care Team Providers Care Manager Water Wastewater Name Role Phone Lisa Mayorga MD Primary Care Provider [phone] Encounter Details Date Type Department Care Team (Late st Contact Info) Description 03/17/2013 4:00 PM EDT Follow[place] [id number] Johnathon Esparza MD [facility] [place] [address] Ulcerative colitis (Primary Dx) Discharge Disposition: Home [...] Sign Reading Time Taken Comments Blood Pressure 143/98 03/17/2013 3:26 PM EDT Pulse 98 03/17/2013 3:26 PM EDT Temperature 36.8 ??C (98.2 ??F) 03/17/2013 3:26 PM ED T Respiratory Rate 16 03/17/2013 3:26 PM EDT Oxygen Saturation 98% 03/17/2013 3:26 PM EDT Inhaled Oxygen Concentration - - Weight 92.5 kg (203 lb 14.4 oz) 03/17/2013 3:26 PM EDT Height - - Body Mass Index 29.26 03/17/2013 2:12 PM EDT documented in this encounter Progress Notes * Ora Hernández - 03/22/2013 9:03 AM EDT Preoperative Ostomy Visit: Diagnosis: Ulcerative Colitis since age 18 y.o. (pt now 43 yrs old) Surgeon:Dr. Johnathon Esparza Proposed Surgery:IAPP vs Proctectomy with temporary of permanent Ileostomy Date of Surgery: 03/23/13 Insurance:Medicare Pre-op Teaching:I reviewed A & P, surgical procedure and general lifestyle implications with anIleostomy with pt. He is and has one daughter in Elementary school. His is not with him today. He states that he has had a difficult time getting his head around this surgery. He doesn't understand why, as he has had serious surgeries in the past. He thinks it has been the waiting involved in this surgery. He has done some research on the surgery and Ileostomies. I gave him the Ostomy Skills Kit today and enc him to watch this at home with his . I showed him pouches and wafers and discussed change and emptying of the pouches, showering/bathing/swimming (pt likes to snorkel with his daughter), clothing, wraps, intimacy, etc. We talked about diet and the importance of adequate hydration as he will be at risk for dehydration with Ileostomy. He has experienced this in the past and knows what this feels like. Stoma Siting:I stoma sited him after sitting and standing and marked two sites; #1 RLQ is a bit more difficult to see but I think he will be happier with this lower site, free of creases or folds. #2site it RUQ. I darkened both circles and covered with Tegaderm and asked that he maintain the sitesuntil OR next week (gave him extra Tegaderm dressings to take with him) Both sites are above his belt line. Teaching Material Given:Ostomy Skills Kit and Ileostomy guide. Family/Friends/Support System: and daughter. Enc him to share the teaching materials with them. Anticipated needs Post-op:usual teaching and possible VNA Ostomy Visitor Pre-op:none at this time, I did offer this to pt, pre or post op. * Johnathon Esparza MD - 03/17/2013 4:22 PM EDT Mr. Argueta is a 43-year-old male scheduled to undergo proctocolectomy with ileal pouch-anal anastomosis and diverting loop ileostomy for diagnosis of ulcerative colitis on 03/23/2013. Patient has a history of colitis dating from age 18. He has been on a variety of medical regimens to control symptoms of his disease. Most recently, he has been receiving periodic courses with prednisone to treat symptomatic flares. The last such flare occurred in late December/early January while the patient was deciding on whether to proceed with surgical treatment for the disorder. He was placed on prednisone 20 mg per day and we have made arrangements to proceed with ileal pouch-anal anastomosis. Patient returns for preoperative evaluation today. Patient has undergone colonoscopy to the cecum, which revealed moderately active pancolitis. The ileocecal valve was noted to be mildly stenotic, but the terminal ileum appeared normal. Biopsies from the terminal ileum revealed no evidence of enteritis. Biopsies from the colon revealed no evidence of submucosal granuloma formation or dysplasia. Patient has also undergone CT enterography which has ruled out any evidence of focal enteritis. Patient has remained on 20 mg of prednisone per day since he was seen in early January. He reports that presently he is having two to three [id number] bowel movements per day. He has not experienced any bleeding with bowel movements in more than a week. He is not experiencing any troubles with abdominal pain or cramps. We discussed the advisability of pursuing weight reduction program prior to surgery. Patient reports that his weight has been stable, but he has been unable to decrease his weight in the interim. Past medical history is notable for: 1. Chronic asthma, which is minimally symptomatic on current medication regimen. 2. History of recurring atrial fibrillation that has been successfully with ablation therapy. 3. Hyperlipidemia. 4. Chronic low back pain, status post L5-S1 fusion in 2006. 5. History of depression. 6. Chronic tremor of uncertain etiology. 7. Hypogonadism. 8. History of pilonidal disease. Review of systems is notable for the problems outlined above but is otherwise unremarkable and unchanged from my note in October 2012. In particular, Pulmonary: Patient denies current problems with chronic cough or wheezing. No sputum production. Cardiovascular: No history of palpitations, chest pain, dyspnea on exertion, orthopnea, or PND. Gastrointestinal: See HPI. No history of hematemesis, jaundice, or hepatitis. Genitourinary: No dysuria, urinary frequency, or hematuria. Endocrine: No history of diabetes or thyroid disease. Musculoskeletal: Chronic pain in both knees, presumably related to the patient's IBD. Current medications include Advair Diskus, Proventil inhaler, Singulair, and Paxil. Other medications include prednisone 20 mg per day. Patient has no medication allergies. On physical exam, the patient is a well-developed, obese male in no acute distress. Blood pressure 143/98, pulse 98, temperature 98.2, weight 203 pounds, BMI 28.4. Significant physical findings include absence of skin rash or jaundice. There is no supraclavicular or inguinal adenopathy. Neck is supple without mass. There are no cervical bruits. Chest is clear to auscultation. Cardiovascular exam reveals a regular heart rhythm with normal heart sounds. No murmurs or gallops are appreciated. Abdomen is obese and soft without organomegaly or mass. The abdomen appears somewhat firm on today's exam and is quite globular in configuration. There is no tenderness to palpation. No abdominal masses are appreciated. Examination of extremities reveals no peripheral edema or calf tenderness. Impression and Plan: Chronic ulcerative colitis intractable to medical therapy. I have reviewed plans to proceed with surgery on 03/23/2013. Would hope that we could perform proctocolectomy but the thickness of the patient's abdominal wall and globular abdomen may make it difficult to get a diverting loop ileostomy to the skin surface. Based on finding at the time of surgery, I may well choose to perform a total colectomy as the initial procedure. This would enable us to get the patient off steroids and work more aggressively on weight reduction before moving ahead with the pelvic dissection. Patient is aware that this decision will be made at the time of surgery. Have reviewed potential risks and complications of the procedure including the possibility for bladder and sexual dysfunction. Have recommended that the patient decrease his prednisone to 15 mg per day as of tomorrow and remain on that dose until surgery. * Lauren Blair RN - 03/17/2013 3:16 PM EDT Pre-Operative Bowel Preparation Instructions for Colon and Rectal Surgery ([id number] version) Purchase at your pharmacy: Cleansing agents (over the counter) ?? 238 gram bottle of MiraLAX ?? 64 oz. Gatorade ?? 8 Dulcolax pills Antibiotics: (prescription) ?? 8 neomycin pills ?? 8 metronidazole pills Anti-nausea pills: (prescription) ?? 4 Zofran (ondansetron) pills Day Before Surgery: ?? No solid foods, milk, or milk products allowed. ?? Drink only clear liquids for breakfast, lunch, and dinner. ?? Clear liquids allowed and should be pushed: water, Clear fruit juices (apple, grape, cranberry) Gatorade, Bouillon, Jell-O (no fruit), Flavored ices, Tea and black coffee (it is okay to add sugar) ?? This bowel prep will dehydrate you, so it is important to drink plenty of clear fluids in addition to the MiraLAX mix on the day of the prep. ?? 1pm - take one Zofran(ondansetron) anti-nausea pill, and take one every 6 hours as needed after for nausea ?? 2pm - take 4 Dulcolax pills with a clear liquid of your choice ?? 4pm - mix the 238-gram bottle of MiraLAX in 64 oz. of Gatorade (chilled or not) ?? Shake the solution until the MiraLAX is dissolved ?? Drink an 8 oz. glass every 10-15 minutes until the solution is gone ?? You should complete drinking the prep within two hours (by 6pm) ?? You will begin to have bowel movements and may have a feeling of ???fullness?? which will pass.It is expected that you will have watery bowel movements. ?? 7pm - take 4 more Dulcolax pills, and 4 neomycin pills & 4 metronidazole pills ?? 11pm - take another 4 neomycin pills and 4 metronidazole pills It is important that the doses of antibiotics be 4 hours apart Day of Surgery: ?? Do not eat or drink anything else except your medications with a sip of water, unless otherwise directed by the Same Day Surgery nurses ?? Check in at Same Day Surgery (the best place to park for this is the parking garage) Medications: ?? Do Not Take any medications containing aspirin (Kaley-Alvo, Anacin, Bufferin, baby aspirin, Dristan, etc.) for 10 days prior to your surgery. ?? Do Not Take medications for arthritis such as Motrin, Advil, Clinoril, Nuprin, etc. for 10 days prior to your surgery. ?? You may take Tylenol. ?? Continue to take any medications prescribed for high blood pressure or heart disease. ?? IF YOU TAKE COUMADIN or PLAVIX, CALL THIS OFFICE FOR INSTRUCTIONS If you have questions about your medications or the prep, please call the Same Day Program at before 5:00PM. After 5:00PM call and ask the rework machine operator to page the General Surgery Resident operation specialist. The same day surgery nurses will call you between 3:00pm and 6:00 pm the weekday before your surgery to confirm the time of your admission and to go over any further instructions Pre-Operative Scrub for Surgery Patient was given the instructions for the Chlorhexidine soap that is recommended to be used on theskin the night before and the morning of surgery. Patient was given 2 individual packets of Chlorhexidine soap with the instruction. The patient verbalizes his/her understanding of the instructions. documented in this encounter Plan of Treatment Not on file documented as of this encounter Procedures Procedure Name Priority Date/Time Associated Diagnosis Comments DIFFERENTIAL, AUTOMATED Routine 03/17/2013 2:55 PM EDT TYPE AND SCREEN, SDP (FUTURE SURGERY, [facility] SAME DAY PROGRAM ONLY) Routine 03/17/2013 2:55 PM EDT Ulcerative colitis CREATININE Routine 03/17/2013 2:55 PM EDT Ulcerative colitis ABO/RH TYPING Routine 03/17/2013 2:55 PM EDT Ulcerative colitis CBC (WITH DIFF) Routine 03/17/2013 2:55 PM EDT Ulcerative colitis ANTIBODY SCREEN Routine 03/17/2013 2:55 PM EDT Ulcerative colitis BUN Routine 03/17/2013 2:55 PM EDT Ulcerative colitis documented in this encounter Results * (ABNORMAL) Differential, Automated (03/17/2013 2:55 PM EDT) Neutrophils % 83.8(H) 34.0 - 71.0 % CERNER MILLENNIUM Neutr Abs (ANC) 9.87(H) 1.50 - 6.30 x10(3)/mc L CERNER MILLENNIUM Lymphocytes % 11.0(L) 19.0 - 53.0 % CERNER MILLENNIUM Lymphocytes Abs 1.3 1.0 - 3.6 x10(3)/mc L CERNER MILLENNIUM Monocytes % 4.2 4.0 - 13.0 % CERNER MILLENNIUM Monocyte Abs 0.5 0.2 - 1.0 x10(3)/mc L CERNER MILLENNIUM Eosinophils % 0.6 0.0 - 7.0 % CERNER MILLENNIUM Eosinophils Abs 0.1 0.0 - 0.5 x10(3)/mc L CERNER MILLENNIUM Basophils % 0.1 0.0 - 2.0 % CERNER MILLENNIUM Basophils Abs 0.0 0.0 - 0.2 x10(3)/mc L [facility] Immature Gran % 0.30 0.00 - 0.66 % [facility] MILLENNIUM Comment: Immature granulocytes(IG's)percentage and absolute count will include metamyelocytes, myelocytes, and promyelocytes. Blood smears from CBCs yielding IG's will be scanned manually for concordance. If this scan disagrees with the automated IG or if promyelocytes are noted, a manual differential will be performed. Shari Gran Abs 0.03 0.00 - 0.05 x10(3)/mc L [facility] Blood specimen (specimen) 03/17/2013 2:55 PM EDT 03/17/2013 3:19 PM EDT Johnathon Esparza MD HEMATOLOGY ORDERABLE S Performing Organization Address City/[facility] [address]/[facility] Co de Phone Number [facility]SE [facility] * Antibody screen (03/17/2013 2:55 PM EDT) Pathologist [facility] Ab Screen Interp Negative [facility] Expires at [id number] on: [id number] [facility] Blood specimen (specimen) 03/17/2013 2:55 PM EDT 03/17/2013 3:12 PM EDT Narrative Resulting Agency Comment Spec In Lab Johnathon Esparza MD BLOOD BANK LAB ORDER ALEISHA Performing Organization Address [facility] [address]/[facility] de Phone Number [facility] * ABO/Rh Typing (03/17/2013 2:55 PM EDT) Pathologist [facility] ABORH Type A Pos [facility] Blood specimen (specimen) 03/17/2013 2:55 PM EDT 03/17/2013 3:12 PM EDT Narrative Resulting Agency Comment Spec In Lab Johnathon Esparza MD BLOOD BANK LAB ORDER ALEISHA Performing Organization Address [facility] [address]/[facility] Co de Phone Number [facility] * Creatinine (03/17/2013 2:55 PM EDT) [facility] Creatinine 0.96 0.80 - 1.50 mg/dL CERNER MILLENNIUM Comment: Please note that the pediatric reference intervals supplied above were not validated at [facility]. Results from pediatric patients should be interpreted in conjunction to the patient's age, height and muscle mass. Estimated GFR >60 >=60 CERJAKE MILLENNIUM Comment: This estimated GFR (eGFR) value [...] internet browser. http://www.nkdep.nih.gov/lab-evaluation.shtml http://www.kidney.org/professionals/ Blood specimen (specimen) 03/17/2013 2:55 PM EDT 03/17/2013 3:19 PM EDT Narrative Resulting Agency Comment Spec In Lab Johnathon Esparza MD CHEMISTRY ORDERABLES Performing Organization Address [facility] [address]/[facility] de Phone Number NATHALY MILLERIUM * BUN (03/17/2013 2:55 PM EDT) BUN 16 10 - 20 mg/dL NATHALY MILLENNIUM Blood specimen (specimen) 03/17/2013 2:55 PM EDT 03/17/2013 3:19 PM EDT Narrative Resulting Agency Comment Spec In Lab Johnathon Esparza MD CHEMISTRY ORDERABLES Performing Organization Address [facility] [address]/[facility] de Phone Number CERJAKE MANZANOENNIUM * (ABNORMAL) CBC (with Diff) (03/17/2013 2:55 PM EDT) WBC 11.8(H) 4.0 - 10.0 x10(3)/mcL CERNER MILLENNIUM RBC 5.48 4.63 - 6.08 x10(6)/mcL CERNER MILLENNIUM Hemoglobin 16.1 13.7 - 17.5 gm/dL CERNER MILLENNIUM Hematocrit 47.5 40.0 - 51.0 % CERNER MILLENNIUM MCV 86.7 79.0 - 92.0 fL NATHALY MANZANOENNIUM MCH 29.4 25.6 - 32.2 pg NATHALY MANZANOENNIUM MCHC 33.9 32.0 - 36.5 gm/dL NATHALY MANZANOENNIUM Platelets 285 145 - 370 x10(3)/mcL NATHALY MANZANOENNIUM RDWSD 42.0 35.0 - 46.0 fL [facility] JOSE JUANENNIUM RDWCV 13.2 10.9 - 14.4 % NATHALY MANZANOENNIUM MPV 9.8 9.0 - 12.0 fL NATHALY MILLERIUM Blood specimen (specimen) 03/17/2013 2:55 PM EDT 03/17/2013 3:19 PM EDT Narrative Resulting Agency Comment Spec In Lab Johnathon Esparza MD HEMATOLOGY ORDERABLE S [facility] documented in this encounter Visit Diagnoses Diagnosis Ulcerative colitis- Primary Ulcerative colitis, unspecified documented in this encounter Care Teams Manager Water Wastewater Relationship Specialty Start Date End Date Lisa Mayorga MD [address] [place] [address] PCP - General 05/24/11 documented as of this encounter
--- OUTSIDE RECORDS SUMMARY | 2023-12-15 15:49 | XMS_ITS | Encounter Summary ---
Author Organization [facility] Address [facility] [place] [address] Care Team Providers Care Online Activist Name Role Phone Lisa Mayorga MD Primary Care Provider [phone] Encounter Details Date Type Department Care Team (Late st Contact Info) Description 01/11/2013 10:00 AM EDT - 01/11/2013 10:45 AM EDT Surgery [place] [address] Pillo Avina MD [facility] [place] [address] COLONOSCOPY, DIAGNOSTIC (WRVU 3.26) Social History Tobacco Use Types Packs/Day Years [...] Sign Reading Time Taken Comments Blood Pressure 137/93 01/11/2013 11:21 AM EDT Pulse 94 01/11/2013 11:21 AM EDT Temperature 36.8 ??C (98.2 ??F) 01/11/2013 9:33 AM ED T Respiratory Rate 14 01/11/2013 11:21 AM EDT Oxygen Saturation 95% 01/11/2013 11:21 AM EDT Inhaled Oxygen Concentration - - Weight 88.5 kg (195 lb) 01/11/2013 9:33 AM EDT Height - - Body Mass Index 27.2 01/10/2012 10:25 AM EDT documented in this encounter Discharge Instructions * Discharge Instructions* Leif Landry RN - 01/11/2013 11:46 AM EDT Colonoscopy What to expect after the procedure You may feel a little more gassy or bloated than usual. This is normal. You should expect the return of normal bowel function in the 2 to 3 days. Activity Because of the sedation that you received your judgement and reaction time are effected ?? Go home and rest quietly for the remainder of the day. You may resume your normal activities tomorrow. ?? Change from one position to the next slowly. You may lose your balance unexpectedly ?? Be careful on stairs, as you may be unsteady on your feet FOR THE NEXT 24 HRS ?? DO NOT DRIVE OR OPERATE ANY MACHINERY ?? DO NOT DRINK ALCOHOLIC BEVERAGES ?? DO NOT SIGN LEGAL DOCUMENTS ?? If you are a smoker: DO NOT SMOKE WHILE YOU ARE ALONE Diet ?? Start by eating small portions of foods that ordinarily will not upset your stomach . Avoid gas producing foods for the next few days ?? Be gentle with what you choose to start with ?? Drink plenty of fluids ( unless your doctor has told you not to). IV SITE-- slight redness, or tenderness is normal. You can use warm compresses if you become concerned. If the tenderness +/or redness increases or foul drainage and a red streak occurs, please contact your PCP immediately When shoud you call for help? Call 911 anytime you think you may need emergency care. For example If you pass out ( loss of consciousness) If you pass maroon or bloody stools If you have severe belly pain Call your doctor now or seek immediate medical care If your stools are black and tarlike If your stools have streaks of blood, but you did not have a biopsy or any polyps removed If you have belly pain, or your belly is swollen and firm If you vomit If you have a fever If you are very dizzy Watch closely for changes in your health, and be sure to contact your doctor if you have any problems Your doctor will let you know when you will need your next colonoscopy. The results of your test and your risk for colorectal cancer will help your doctor decide how often you need to be checked. [facility] [phone] 8a-5p Same Day Endo [phone] 7a-8p Otherwise contact [phone] and ask to speak to the breaker up machine operator environmental services project manager Follow up care is a nieves part of your treatment and safety. Be sure to make and go to all appointments, and call your doctor if you are having problems. Discharge instructions reviewed with patient who expresses understanding * Patient Instructions* Pillo Avina MD - 01/11/2013 10:33 AM EDT Please see Recommendations in the Provation procedure report which is documented in the procedural note in E-DH. documented in this encounter Medications at Time [...] as of this encounter H&P Notes * Pillo Avina MD - 01/11/2013 10:22 AM EDT Patient Name: Danya Argueta Jr. Patient Age: 42 y.o. 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 Sx treated with Prednisone for approx6 wks. Prednisone tapered and discontinued approx 4 wks ago. Currently 3-4 soft BM's/day. Notes BRB in bowl 08/06. Occ abd cramps. Stable weight. Tolerated prep. PMH: Asthma/COPD, currently stable Hx Afib successfully ablated. Notes occ palpitations. Chronic low back pain, S/P L5S1 fusion Hypogonadism Depression Hyperlipidemia Hx pilonidal ds ROS neg except as noted above Allergies: None Meds: Albuterol, Advair, Neurontin, Singulair, Paxil, Zocor WD/WN male NAD Neck: No mass or bruit Chest: cleatr Cor: RR w/out M, periph pulses intact Abd: Soft, nondistended, nontender. No mass or megaly Ext: No calf tenmderness or edema IMP: Long Hx DAI with recurring flares; For diagnostic colonoscopy with biopsies. Risks & pot complications reviewed. He wishes to proceed. documented in this encounter Miscellaneous Notes * OR Attestation - Pillo Avina MD - 01/11/2013 10:32 AM EDT Attestation:Attestation: I was present and I participated during the entire procedure (does not need to include opening and closing). PILLO AVINA Case Date: 01/11/2013 PILLO AVINA MD 01/11/2013 * Miscellaneous - Mohsen, Sylwia - 01/11/2013 9:36 AM EDT documented in this encounter Plan of Treatment Not on file documented as of this encounter Procedures Procedure Name Priority Date/Time Associated Diagnosis Comments SURGICAL PATHOLOGY REPORT Routine 01/11/2013 11:24 AM EDT SPECIMEN TO PATHOLOGY Routine 01/11/2013 11:24 AM EDT SPECIMEN TO PATHOLOGY Routine 01/11/2013 11:24 AM EDT SPECIMEN TO PATHOLOGY Routine 01/11/2013 11:24 AM EDT SPECIMEN TO PATHOLOGY Routine 01/11/2013 11:24 AM EDT SPECIMEN TO PATHOLOGY Routine 01/11/2013 11:24 AM EDT SPECIMEN TO PATHOLOGY Routine 01/11/2013 11:24 AM EDT SPECIMEN TO PATHOLOGY Routine 01/11/2013 11:24 AM EDT SPECIMEN TO PATHOLOGY Routine 01/11/2013 11:24 AM EDT COLONOSCOPY FLEXIBLE, WITH BX (WRVU 3.56) 01/11/2013 10:24 AM EDT HX UC ? [facility] COLONOSCOPY, DIAGNOSTIC (WRVU 3.26) 01/11/2013 10:24 AM EDT HX UC ? [facility] COLONOSCOPY Routine 01/11/2013 10:09 AM EDT documented in this encounter Results * Surgical Pathology Report (01/11/2013 11:24 AM EDT) Surgical Pathology Report ? [facility] ? Provider: ?? PILLO AVINA ?Pt. Name: ?? DANYA ARGUETA JR ? Acc #: ?[id number] ?Pt. ? Col Date: ?? 01/11/2013 ? /Sex: ?1970,(42 years),Male ? Rec Date: ?? 01/11/2013 ? LOC: ?4T ? SURGICAL PATHOLOGY ? ---Pathologic Diagnosis--- ? Endoscopic biopsies - ? A. Mildly active chronic colitis, patchy activity. ? B. Inactive chronic colitis. ? C. Mildly active chronic colitis, patchy activity. ? D. Inactive chronic colitis. ? E. Ileal mucosa within normal limits. ? F. Mildly active chronic colitis, patchy activity. ? G. Inactive chronic colitis. ? H. Inactive chronic colitis. ? Note: No dysplasia or granuloma is seen ? CR-PX ? 01/12/13 ? AAS ? 01/12/13 Verified by: ? Rudy Crow MD ? Pathologist ? (Electronic Signature) ? The attending pathologist whose signature appears on this report has ? reviewed all diagnostic slides and has edited the gross and/or ? microscopic portion of the report in rendering the final pathologic ? diagnosis. ? ---Gross Description--- ? A - Labeled/Fixativ e: Mucosal biopsies transverse colon, formalin. ? Quantity/Size: Four, averaging 0.4 cm. ? Tissue Description: Soft, garduno tissues. ? Sections/Proces sing: (T1) ? B - Labeled/Fixativ e: Mucosal biopsies descending colon, formalin. ? Quantity/Size: Four, averaging 0.3 cm. ? Tissue Description: Soft, pink tissues. ? Sections/Proces sing: (T1) ? [facility] ? Provider: ?? PILLO AVINA ?Pt. Name: ?? DANYA ARGUETA JR ? Acc #: ?[id number] ?Pt. ? Col Date: ?? 01/11/2013 ? /Sex: ?1970,(42 years),Male ? Rec Date: ?? 01/11/2013 ? LOC: ?4T ? SURGICAL PATHOLOGY ? C - Labeled/Fixativ e: Mucosal biopsies sigmoid colon, formalin. ? Quantity/Size: Multiple, ranging from 0.2-0.6 cm. ? Tissue Description: Soft, red tissues. ? Sections/Proces sing: (T2) ? D - Labeled/Fixativ e: Mucosal biopsies rectum, formalin. ? Quantity/Size: Two, averaging 0.4 cm. ? Tissue Description: Soft, pink tissues. ? Sections/Proces sing: (T1) ? E - Labeled/Fixativ e: Mucosal biopsies terminal ileum, formalin. ? Quantity/Size: Three, averaging 0.5 cm. ? Tissue Description: Soft, garduno tissues. ? Sections/Proces sing: (T1) ? F - Labeled/Fixativ e: Mucosal biopsies cecum, formalin. ? Quantity/Size: Four, averaging 0.3 cm. ? Tissue Description: Soft, garduno tissues. ? Sections/Proces sing: (T1) ? G - Labeled/Fixativ e: Mucosal biopsies ascending colon, formalin. ? Quantity/Size: Five, averaging 0.3 cm. ? Tissue Description: Soft, pink tissues. ? Sections/Proces sing: (T1) ? H - Labeled/Fixativ e: Mucosal biopsies hepatic flexure, formalin. ? Quantity/Size: Four, averaging 0.4 cm. ? Tissue Description: Soft, pink tissues. ? Sections/Proces sing: (T1) ??sns ? ---Clinical Information--- ? Specimen Submitted: ? A - Mucosal biopsies, transverse colon ? B - Mucosal biopsies, descending colon ? C - Mucosal biopsies, sigmoid colon ? D - Mucosal biopsies, rectum ? E - Mucosal biopsies, terminal ileum ? F - Mucosal biopsies, cecum ? G - Mucosal biopsies, ascending colon ? H - Mucosal biopsies, hepatic flexure ? Clinical History: ? History of DAI ? [facility] ? Provider: ?? PILLO AVINA ?Pt. Name: ?? MARK CULP, DANYA Hinojosa ? Acc #: ?[id number] ?Pt. ? Col Date: ?? 01/11/2013 ? /Sex: ?1970,(42 years),Male ? Rec Date: ?? 01/11/2013 ? LOC: ?4T ? SURGICAL PATHOLOGY ? Clinical Diagnosis: ? Screen for dysplasia or microscopic evidence suggesting Crohn's CERNER PAULIUM 01/11/2013 11:2 4 AM EDT Pillo Avina MD PATHOLOGY/CYTOLOGY O TAMANNA Performing Organization Address [facility] de Phone Number NATHALY VALERA * Specimen to Pathology (surgical or derm) (01/11/2013 11:24 AM EDT) AP Specimen 01/11/2013 11:2 4 AM EDT 01/11/2013 11:24 AM EDT Narrative CERNER MILLENNIUM - 01/11/2013 11:24 AM EDT Specimen requisition ordered. ??Separate Pathology report to follow Pillo Avina MD PATHOLOGY/CYTOLOGY O TAMANNA Performing Organization Address [facility] de Phone Number [facility] * Specimen to Pathology (surgical or derm) (01/11/2013 11:24 AM EDT) AP Specimen 01/11/2013 11:2 4 AM EDT 01/11/2013 11:24 AM EDT Narrative NATHALY MILLERIUM - 01/11/2013 11:24 AM EDT Specimen requisition ordered. ??Separate Pathology report to follow Pillo Avina MD PATHOLOGY/CYTOLOGY O TAMANNA Performing Organization Address [facility] de Phone Number NATHALY VALERA * Specimen to Pathology (surgical or derm) (01/11/2013 11:24 AM EDT) AP Specimen 01/11/2013 11:2 4 AM EDT 01/11/2013 11:24 AM EDT Narrative NATHALY VALERA - 01/11/2013 11:24 AM EDT Specimen requisition ordered. ??Separate Pathology report to follow Pillo Avina MD PATHOLOGY/CYTOLOGY O TAMANNA Performing Organization Address [facility] de Phone Number NATHALY VALERA * Specimen to Pathology (surgical or derm) (01/11/2013 11:24 AM EDT) AP Specimen 01/11/2013 11:2 4 AM EDT 01/11/2013 11:24 AM EDT Narrative NATHALY VALERA - 01/11/2013 11:24 AM EDT Specimen requisition ordered. ??Separate Pathology report to follow Pillo Avina MD PATHOLOGY/CYTOLOGY O TAMANNA Performing Organization Address [facility] de Phone Number NATHALY VALERA * Specimen to Pathology (surgical or derm) (01/11/2013 11:24 AM EDT) AP Specimen 01/11/2013 11:2 4 AM EDT 01/11/2013 11:24 AM EDT Narrative NATHALY MILLERIUM - 01/11/2013 11:24 AM EDT Specimen requisition ordered. ??Separate Pathology report to follow Pillo Avina MD PATHOLOGY/CYTOLOGY O TAMANNA Performing Organization Address [facility] de Phone Number NATHALY VALERA * Specimen to Pathology (surgical or derm) (01/11/2013 11:24 AM EDT) AP Specimen 01/11/2013 11:2 4 AM EDT 01/11/2013 11:24 AM EDT Narrative NATHALY VALERA - 01/11/2013 11:24 AM EDT Specimen requisition ordered. ??Separate Pathology report to follow Pillo Avina MD PATHOLOGY/CYTOLOGY O TAMANNA Performing Organization Address [facility] de Phone Number NATHALY VALERA * Specimen to Pathology (surgical or derm) (01/11/2013 11:24 AM EDT) AP Specimen 01/11/2013 11:2 4 AM EDT 01/11/2013 11:24 AM EDT Narrative NATHALY VALERA - 01/11/2013 11:24 AM EDT Specimen requisition ordered. ??Separate Pathology report to follow Pillo Avina MD PATHOLOGY/CYTOLOGY Shahbaz NOLEN Performing Organization Address [facility] de Phone Number NATHALY VALERA * Specimen to Pathology (surgical or derm) (01/11/2013 11:24 AM EDT) AP Specimen 01/11/2013 11:2 4 AM EDT 01/11/2013 11:24 AM EDT Narrative NATHALY VALERA - 01/11/2013 11:24 AM EDT Specimen requisition ordered. ??Separate Pathology report to follow Pillo Avina MD PATHOLOGY/CYTOLOGY O TAMANNA Performing Organization Address [facility] de Phone Number NATHALY VALERA * COLONOSCOPY (01/11/2013 10:09 AM EDT) COLONOSCOPY [facility] Endoscopy Patient Name: Danya Argueta ? Procedure Date: 01/11/2013 10:09 AM ? Date of : 1970 ? Age: 42 ? Order #: [id number] ? Procedure: ? Colonoscopy Indications: ? Personal history of ulcerative colitis Providers: ? Pillo Avina MD, Nathan Wood, ? RN, Selma Mcintyre, Planning Rn Referring : ?Lisa Mayorga MD Medicines: ? Midazolam 5 [...] Return to my office [Return day]. ? Pillo Avina MD 01/11/2013 11:27 AM This report has been signed electronically. Number of Addenda: 0 Note Initiated On: 01/11/2013 10:09 AM PROVATION 01/11/2013 10:0 9 AM EDT Lisa Mayorga MD [facility] documented in this encounter Visit Diagnoses Not on filedocumented in this encounter Administered Medications Inactive Administered Medications - up to 3 most recent administrations Medication Order MAR Action Action Date Dose Rate Site fentaNYL 50mcg/mL injection ONCE PRN, Starting on Fri01/11/13 at 1025, Until Fri01/11/13 at 1553, Pain, Intra-Operative (Intra-Procedure), Routine Given 01/11/2013 10:37 AM EDT 50 mcg Right Arm Given 01/11/2013 10:31 AM EDT 50 mcg R ight Arm Given 01/11/2013 10:28 AM EDT 50 mcg R ight Arm midazolam (VERSED) injection ONCE PRN, Starting on Fri01/11/13 at 1025, Until Fri01/11/13 at 1553, Sleep, Intra-Operative (Intra-Procedure), Routine Given 01/11/2013 10:37 AM EDT 1 mg Right Arm Given 01/11/2013 10:31 AM EDT 1 mg R ight Arm Given 01/11/2013 10:28 AM EDT 1 mg R ight Arm sodium chloride 0.9% infusion 50 mL/hr, Intravenous, CONTINUOUS, Starting on Fri01/11/13 at 0945, Until Fri01/11/13 at 1553, Endoscopy (Day of Procedure) New Bag 01/11/2013 9:45 AM EDT 50 mL/hr 50 mL/hr documented in this encounter Active and Recently Administered Medications Times are shown in EDT. Continuous Medication Order 01/09/2013 01/10/2013 01/11/2013 sodium chloride 0.9% infusion (CANCELED) 50 mL/hr, Intravenous, CONTINUOUS, Starting on Fri01/11/13 at 0945, Until Fri01/11/13 at 1553, Endoscopy (Day of Procedure) 0945 (New Bag - Prov ider: Marni Rocha RN) PRN Medication Order 01/09/2013 01/10/2013 01/11/2013 fentaNYL 50mcg/mL injection (CANCELED) ONCE PRN, Starting on Fri01/11/13 at 1025, Until Fri01/11/13 at 1553, Pain, Intra-Operative (Intra-Procedure), Routine 1025 (Given - Provid er: Nathan Wood RN - Comment: Start moderate sedation)1028 (Given - Provider: Nathan Wood RN - Comment: sleepy but remains awake after 1st dose and 3 minutes)1031 (Given - Provider: Nathan Wood RN - Comment: sleping on and off but very easily aroused)1037 (Given - Provider: Nathan Wood RN - Comment: grimmacing moving with muscle tension) midazolam (VERSED) injection (CANCELED) ONCE PRN, Starting on Fri01/11/13 at 1025, Until Fri01/11/13 at 1553, Sleep, Intra-Operative (Intra-Procedure), Routine 1025 (Given - Provid er: Nathan Wood RN - Comment: see fentanyl same time)1028 (Given - Provider: Nathan Wood RN - Comment: see fentanyl same time)1031 (Given - Provider: Nathan Wood RN - Comment: see fentanyl same time)1037 (Given - Provider: Nathan Wood RN - Comment: see fentanyl same time) documented in this encounter Care Teams Online Activist Relationship Specialty Start Date End Date Lisa Mayorga MD [address] [place] [address] PCP - General 05/24/11 documented as of this encounter
--- OUTSIDE RECORDS SUMMARY | 2023-12-15 15:49 | XMS_ITS | Encounter Summary ---
Author Organization [facility] Address [facility] [place] [address] Care Team Providers Care Medical Tech Name Role Phone Lisa Mayorga MD Primary Care Provider [phone] Encounter Details Date Type Department Care Team (Late st Contact Info) Description 10/19/2012 Orders [place] [address] Johnathon Esparza MD [facility] DR GENERAL SURGERY [place] [id number] Social History Tobacco Use Types Packs/Day Years [...] Procedure Name Priority Date/Time Associated Diagnosis Comments FILM LIBRARY STORAGE ONLY DX ABDOMEN Routine 10/19/2012 3:54 PM EDT documented in this encounter Results * Film Library- Storage only DX Abdomen (10/19/2012 3:54 PM EDT) 10/19/2012 3:54 PM EDT Narrative [facility] - 12/14/2013 10:12 AM EDT This is a non-reportable exam. Procedure Note Anil Childs - 12/14/2013 This is a non-reportable exam. Johnathon Esparza MD [facility] FILM LIBRARY ORD ERABLES RAD [address] [facility] [place] [address] documented in this encounter Visit Diagnoses Not on filedocumented in this encounter Care Teams Medical Tech Relationship Specialty Start Date End Date Lisa Mayorga MD [address] [place] [address] PCP - General 05/24/11 documented as of this encounter
--- OUTSIDE RECORDS SUMMARY | 2023-12-15 15:49 | XMS_ITS | Encounter Summary ---
Author Organization [facility]ly [facility] Address [facility] [place] [address] Care Team Providers Care Delivery Room Clerk Name Role Phone Lisa Mayorga MD Primary Care Provider [phone] Reason for Visit * Reason Comments Established Encounter Details Date Type Department Care Team (Late st Contact Info) Description 11/16/2012 3:00 PM EDT Follow[place] [address] Johnathon Esparza MD [facility] [place] [address] Ulcerative colitis (Primary Dx) Discharge Disposition: Home [...] Sign Reading Time Taken Comments Blood Pressure 138/88 11/16/2012 2:56 PM EDT Pulse 93 11/16/2012 2:56 PM EDT Temperature 36.9 ??C (98.4 ??F) 11/16/2012 2:56 PM ED T Respiratory Rate - - Oxygen Saturation 98% 11/16/2012 2:56 PM EDT Inhaled Oxygen Concentration - - Weight 88.2 kg (194 lb 6.4 oz) 11/16/2012 2:56 P M EDT Height - - Body Mass Index 27.11 01/10/2012 10:25 AM EDT documented in this encounter Progress Notes * Johnathon Esparza MD - 11/16/2012 3:59 PM EDT Date: November 16, 2012 Mr. Argueta is a 42-year-old male who returns to see me today to discuss surgical options for managing his ulcerative colitis. Patient was initially seen by me in January 2012 for the same purpose. He was referred by Dr. Madi Thomas who had seen him at that time for longitudinal care for his colitis. Patient has a history of colitis dating from age 18. Patient has been on a variety of medical regimens to treat symptoms of his colitis but the predominant form of therapy has been systemic steroids. Patient has been on systemic steroids for years at a time to control symptoms of his disease. When the patient saw me in January 2012, his disease was quiescent. He was having two bowel movements per day without bleeding. He was not having any abdominal pain and his weight was stable. At that time he was on prednisone 20 mg per day having been placed back on prednisone in November for symptoms of adrenal insufficiency. At the time of the appointment in December, we discussed the options for proctocolectomy versus colectomy with ileal pouch anal anastomosis. It was emphasized to the patient that retirement treatment with steroids was a hazardous way of treating his colitis. Patient was uncertain at that time as to whether he wished to proceed with surgery. He reports today that he gradually tapered and discontinued the prednisone and was off steroids for approximately six months before experiencing a minor flare in symptoms approximately three weeks ago. Patient was briefly hospitalized for treating symptoms of colitis at [facility]. Treatment involved the use of narcotic analgesics and systemic steroids (20 mg per day). The symptoms subsided fairly quickly on the steroids. Given the flare in the disease, however, the patient has been stimulated to consider alternative options for managing the problem and returns for a followup visit with me. Presently, again, he is having only two bowel movements per day. Bowel movements are solid in consistency. He occasionally notes minor amounts of bleeding but this occurs only once every few weeks. Patient does not experience any abdominal pain or cramps, no fevers or chills. Extraintestinal manifestations of his inflammatory bowel disease include arthritis involving knees, ankles, and neck. He has also been treated for intermittent aphthous stomatitis. Of note, the patient has been treated in the past for pilonidal disease and had also been diagnosed as having an anal fistula. Examination by me last December, however, revealed no evidence of an anal fistula. Past medical history is notable for: 1. Chronic asthma. Patient minimally symptomatic on current medication regimen. 2. Hyperlipidemia. 3. Chronic low back pain status post an L5-S1 fusion in 2006. 4. Prolonged depression. 5. Chronic tremor of uncertain etiology. 6. Hypogonadism. 7. History of pilonidal disease. 8. History of recurring atrial fibrillation successfully treated with ablation therapy. 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 He quit smoking in 2005. Currently denies chronic cough or wheezing. Cardiovascular: No history of hypertension. Past history of atrial fibrillation successfully ablated in 2009. No current palpitations, chest pain, dyspnea on exertion, or peripheral edema. Gastrointestinal: See HPI. No history of peptic ulcer disease, hematemesis, jaundice, or hepatitis. No symptoms of esophageal reflux. For remainder, see HPI. Genitourinary: No dysuria, hematuria, nephrolithiasis. Endocrine: No history of diabetes or thyroid disease. Mental Health: Positive history of anxiety/depression. Current medications include prednisone 20 mg per day, albuterol inhaler, Advair Diskus inhaler, Neurontin 300 mg t.i.d., Singulair 10 mg p.o. daily, Paxil 40 mg p.o. q.a.m., Zocor 40 mg p.o. daily. Patient has no medication allergies. On physical examination today, the patient appears anxious but in no acute distress. He is accompanied for the appointment today by his and daughter. While his daughter was out of the room we discussed the option for proceeding with proctocolectomy versus proctocolectomy with ileal pouch anal anastomosis. The functional result with each procedure was reviewed as well as potential risks, complications, and functional consequences. The potential for bladder and sexual dysfunction was outlined. Advised the patient that continued treatment of his inflammatory bowel disease with high-dose steroids is hazardous. He recognizes this. He has been refractory to treatment with other regimens. Although his disease is quiescent on current course of steroids, he recognizes the need to taper and discontinue the steroids. Have advised the patient that there are certain features of his disease (questionable history of anal fistula, initial presentation with several months of diarrhea prior to onset of bleeding) that raise concerns about the possibility of Crohn disease. Would therefore want to perform colonoscopy with biopsies prior to committing to surgery. Would also want to perform CT enterography for the same purpose. Patient understands that if we were to encounter any unexpected findings at the time of surgery that raised concerns for possible Crohn disease then the initial procedure would be limited to a total colectomy with Royal closure of the rectum and diverting ileostomy. If path were to confirm Crohn disease at that time then the ileostomy would be a permanent arrangement. Following discussion of the above, the patient has indicated his interest in proceeding. Will schedule a date for the colonoscopy examination. Depending on findings and the patient's status at that time, will then arrange for the CT enterography and possibly a date for surgery. The patient has previously self medicated with steroids in the past. He is currently directing his own steroid withdrawal. I have cautioned him against an abrupt cessation of steroid therapy. He is aware of the potential risks for adrenal insufficiency. documented in this encounter Plan of Treatment Not on file documented as of this encounter Visit Diagnoses Diagnosis Ulcerative colitis- Primary Ulcerative colitis, unspecified documented in this encounter Care Teams Delivery Room Clerk Relationship Specialty Start Date End Date Lisa Mayorga MD [address] [place] [address] PCP - General 05/24/11 documented as of this encounter
--- OUTSIDE RECORDS SUMMARY | 2023-12-15 15:49 | XMS_ITS | Encounter Summary ---
Author Organization [facility] Address [facility] [place] [address] Care Team Providers Care Peoplesoft Analyst Name Role Phone Lisa Mayorga MD Primary Care Provider [phone] Reason for Visit * Reason Comments GI Problem Encounter Details Date Type Department Care Team (Late st Contact Info) Description 11/27/2011 11:00 AM EDT Office [place] [address] Madi Thomas MD [facility] [place] [address] Colitis (Primary Dx) Discharge Disposition: Home Social History [...] Sign Reading Time Taken Comments Blood Pressure 146/93 11/27/2011 10:51 AM EDT Pulse 113 11/27/2011 10:51 AM EDT Temperature - - Respiratory Rate - - Oxygen Saturation - - Inhaled Oxygen Concentration - - Weight 91.2 kg (201 lb) 11/27/2011 10:51 AM EDT Height 180.3 cm (5' 11) 11/27/2011 10:51 AM EDT Body Mass Index 28.03 11/27/2011 10:51 AM EDT documented in this encounter Progress Notes * Madi Thomas MD - 11/27/2011 2:04 PM EDT Problem List: 1. Ulcerative colitis -diagnosed at age 18. -Long-term steroid use; he has been on it basically continuously since the age of 18. -Therapeutic trials in the past have included Asacol, Colazal, I muran Rowasa enemas. Trial of Remicade in , which enabled him to get off prednisone; however, he felt nauseated and sick on this so it was discontinued. - Declined surgical intervention. 2. Low back pain status post L5-S1 surgery in 2006. 3. Depression, anxiety, PTSD. 4. Asthma. 5. Tobacco abuse. 6. Hyperlipidemia. 7. Prolonged depression. 8. Hypogonadism. 9. History of syncope. 10. Tremor. 11. Pilonidal cysts. HPI: I am seeing Mr. Argueta for the first time. He is a 41-year-old gentleman who comes with his daughter today. He has been diagnosed with ulcerative colitis at age 18 and has been followed in [place]. He has been tried on all variety of IBD-related medications including Remicade. He has been on long-term steroid use and over the past 25 years he says he has only been off steroids completely four or five times. He says he cannot get below 20 mg without flaring. He seems to flare every July/spring. When he is flaring, he can move his bowels up to 20 times a day and get up at night having continual bloody bowel movements. When he is not flaring, he will move his bowels once or twice without blood, and currently that is where he is at without a flare. He has been hospitalized on numerous occasions and put on clear liquids and I believe IV steroids. Currently he is doing relatively well concerning his bowels, but he understands the need to come off the steroids. Review of Systems: Notable for a tremor. GI review of systems is currently negative. His past medical history is mentioned in the problem list above, as is his past surgical history. Social History: He is . His works at the [employer] in [facility]. He is disabled and stays home with his daughter who is going into the fourth grade. She goes to the [employer]. Physical Exam: A man appearing his stated age, in no acute distress. Mild cushingoid features with a rounded facies. Lungs are clear to auscultation. Heart: Regular rate and rhythm. Abdomen: Soft, nondistended, nontender. Extremities are without edema, cyanosis, or clubbing. Impression and Plan: Patient with a longstanding ulcerative colitis who has been on prednisone near continuously over a 25-year period, tried on multiple medications including ASA drugs, enema therapy, immunomodulators, and biologics. I presented the following options to him: 1. It is not reasonable to continue prednisone 20 mg a day. I strongly think he should consider surgery. He still would be a candidate for an ileoanal pull-through. I referred him to Dr. Esparza and have discussed this case with Dr. Esparza. 2. Other options would include entering the open-label trial of vedolizumab or the methotrexate trial. He is interested in exploring these options, and I will arrange appropriate appointment with Rosita Parks, our IBD nurse coordinator. For these trials, he would have to be somewhat active, so we will lower his prednisone dose. 3. The other issue is colorectal screening, as he is at strong risk for colon cancer, so he is due for a colonoscopy; we will arrange this. 4. He is due for labs. We will check CBC and chemistry profile. 5. I will see him back at the time of his colonoscopy and schedule an appointment for three months later. 6. We will schedule an appointment to see Dr. Esparza for consideration of colectomy and with Rosita Parks for consideration in one of our trials. A one-hour office consultation, 40 minutes of which were in direct [id number] patient counseling. documented in this encounter Plan of Treatment Not on file documented as of this encounter Procedures Procedure Name Priority Date/Time Associated Diagnosis Comments DIFFERENTIAL, AUTOMATED Routine 11/27/2011 12:04 PM EDT SEDIMENTATION RATE Routine 11/27/2011 12 :04 PM EDT Colitis CBC (WITH DIFF) Routine 11/27/2011 12:04 PM EDT Colitis CRP, CARDIAC RISK (HS CRP) Routine 11/27/2011 12:04 PM EDT Colitis COMPREHENSIVE METABOLIC PANEL (NON-FASTING) Routine 11/27/2011 12:04 PM EDT Colitis documented in this encounter Results * DIFFERENTIAL, AUTOMATED (11/27/2011 12:04 PM EDT) Pathologist [facility] Neutrophils % 58.6 34.0 - 71.0 % CERNER MILLENNIUM Neutr Abs (ANC) 5.22 1.50 - 6.30 x10(3)/mcL CERNER MILLENNIUM Lymphocytes % 25.1 19.0 - 53.0 % CERNER MILLENNIUM Lymphocytes Abs 2.2 1.0 - 3.6 x10(3)/mcL CERNER MILLENNIUM Monocytes % 11.2 4.0 - 13.0 % CERNER MILLENNIUM Monocyte Abs 1.0 0.2 - 1.0 x10(3)/mcL CERNER MILLENNIUM Eosinophils % 4.7 0.0 - 7.0 % CERNER MILLENNIUM Eosinophils Abs 0.4 0.0 - 0.5 x10(3)/mcL CERNER MILLENNIUM Basophils % 0.2 0.0 - 2.0 % CERNER MILLENNIUM Basophils Abs 0.0 0.0 - 0.2 x10(3)/mcL CERNER MILLENNIUM Immature Gran % 0.20 0.00 - 0.66 % CERNER MILLENNIUM Comment: Immature granulocytes(IG's)percentage and absolute count will include metamyelocytes, myelocytes, and promyelocytes. Blood smears from CBCs yielding IG's will be scanned manually for concordance. If this scan disagrees with the automated IG or if promyelocytes are noted, a manual differential will be performed. Shari Gran Abs 0.02 0.00 - 0.05 x10(3)/mcL CERNER MILLENNIUM Blood specimen (specimen) 11/27/2011 12:04 PM EDT 11/27/2011 12:13 PM EDT Madi Thomas MD [facility]OLOG[facility]ABLE [facility] * High Sensitivity CRP (11/27/2011 12:04 PM EDT) Pathologist [facility] CRP High Sens 9.8 mg/L [facility] Comment: Interpretations: 1) For cardiac risk assessment, two values (fasting or nonfasting sample acceptable) taken at least 2 weeks apart, should be averaged to provide a more reliable estimate of marker level. ??This laboratory uses the recommendations from the AHA/CDC Scientific Statement for interpretations of future risks of cardiovascular events: ? <1.0 mg/L: low risk 1.0 - 3.0 mg/L: moderate risk >3.0 mg/L: high risk groups for future cardiovascular events 2) The general reference range of apparently healthy individuals using this test is <5.0 mg/L (derived from the test package insert) A few words of caution: For cardiac assessment, when a value >10 mg/L is encountered, there should be a search for an acute inflammatory condition or infection (in patients with acute inflammation, the concentration can increase to >500 mg/L). ??The >10 mg/L should be discarded if such a situation exists, since the risk for coronary heart disease cannot be provided, and a repeat specimen, taken at least two weeks after resolution of the acute inflammatory condition, may allow for appraisal of coronary risk information. Please note that significantly decreased CRP values may be obtained from samples taken from patients who have been treated with carboxypenicillins. References: 1. Harshil MOSQUEDA et. al. ??AHA/CDC Scientific Statement: Markers of Inflammation and Cardiovascular Disease. ??Circulation 2003; 107:499-511 2. Donnell PM. ??Clinical applications of C-reactive protein for cardiovascular disease detection and prevention. ??Circulation 2003; 107:363-369 Blood specimen (specimen) 11/27/2011 12:04 PM EDT 11/27/2011 12:13 PM EDT Narrative Resulting Agency Comment Spec In Lab Madi Thomas MD CHEMISTRY ORDERABLES [facility] * Sedimentation rate (11/27/2011 12:04 PM EDT) [facility] Sed Rate 12 0 - 15 mm/hr [facility] Blood specimen (specimen) 11/27/2011 12:04 PM EDT 11/27/2011 12:13 PM EDT Narrative Resulting Agency Comment Spec In Lab Madi Thomas MD HEMATOLOGY ORDERABLE S [facility]ER MILLENNIUM * Comprehensive metabolic panel (non-fasting) (11/27/2011 12:04 PM EDT) Glucose Lvl 86 60 - 199 mg/dL CERNER MILLENNIUM Comment:Diabetes: >=200 mg/d L plus symptoms BUN 15 10 - 20 mg/dL CERNER MILLENNIUM Creatinine 1.12 0.80 - 1.50 mg/dL [facility]ERNER MILLENNIUM Comment: Please note that the pediatric reference intervals supplied above were not validated at [facility]. Results from pediatric patients should be interpreted in conjunction to the patient's age, height and muscle mass. Sodium 138 135 - 145 mmol/L CERNER MILLENNIUM Potassium 3.9 3.5 - 5.0 mmol/L [facility]ERNER MILLENNIUM Comment: Please note: ??Patients with WBC >100,000 may have falsely elevated Potassium levels. ??For accurate Potassium quantification in these patients send serum separator tube (gold top) for subsequent determinations. ??Contact the Clinical Chemistry Laboratory if there are any questions. Chloride 101 98 - 107 mmol/L CERNER MILLENNIUM CO2 29 22 - 31 mmol/L [facility]ERN[facility] MILLENNIUM Anion Gap 8 5 - 15 mmol/L CERNER MILLENNIUM Calcium 9.7 8.5 - 10.5 mg/dL CERNER MILLENNIUM Total Protein 8.0 6.4 - 8.3 gm/dL CERNER MILLENNIUM Albumin 4.6 3.2 - 5.2 gm/dL CERNER MILLENNIUM AST 27 0 - 39 unit/L CERNER MILLENNIUM ALT 22 0 - 55 unit/L CERNER MILLENNIUM Alk Phos 70 40 - 120 unit/L CERNER MILLENNIUM Total Bilirubin 0.7 0.2 - 1.3 mg/dL CERNER MILLENNIUM Bili, Direct 0.1 0.0 - 0.3 mg/dL CERNER MILLENNIUM Estimated GFR >60 >=60 [facility]ERNER MILLENNIUM Comment: The National Kidney Disease Education Program (NKDEP) has recommended all laboratories report estimated GFR (eGFR) along with plasma creatinine measurements to assist you with recognition of early kidney disease. Caveats: ??Plasma creatinine should be at steady-state (unchanged within the past week). For patients multiply eGFR by 1.2. The MDRD equation was developed using patients between the ages of 18 and 70 years. ?? The MDRD equation has not been validated for patients < 18 years of age and should not be used to assess renal function in the pediatric population. ??The MDRD eGFR equation will also overestimate the true GFR of patients above the age of 70. ??This overestimation is variable but increases with age. At present, NKDEP does NOT recommend using the MDRD equation for drug dosing purposes and pharmacists should continue to use their current dosing methods. In addition, numerical eGFR values greater than 60 ml/min/1.73 square meters should be treated as > 60, and not an exact number due to greater inaccuracies at these higher values. Per NKDEP, they classify normal renal function as any GFR >60ml/min/1.73 square meters; chronic kidney disease when GFR <60, and renal failure when GFR <15. ??This calculation may not be valid for patients with atypical muscle mass (very lean or obese), acute renal failure, and in patients with diabetic kidney disease. References: http://nkdep.nih.gov/resources/NKDEP_Suggestn4Labs_0606_508.pdf http://www.kidney.org/professionals/kls/pdf/faq_gfr.pdf Cr K, Kale NA, Kaz AK, Lion TS, Kasia AD, [place] SHAMEKA. Relative performance of the MDRD and CKD-EPI equations for estimating glomerular filtration rate among patients with varied clinical presentations. Clin J Am Soc Nephrol;6:1963-72. Blood specimen (specimen) 11/27/2011 12:04 PM EDT 11/27/2011 12:13 PM EDT Narrative Resulting Agency Comment Spec In Lab Madi Thomas MD CHEMISTRY ORDERABLES [facility] * CBC (with Diff) (11/27/2011 12:04 PM EDT) WBC 8.9 4.0 - 10.0 x10(3)/mcL CERNER MILLENNIUM RBC 5.30 4.63 - 6.08 x10(6)/mcL CERNER MILLENNIUM Hemoglobin 16.1 13.7 - 17.5 gm/dL CERNER MILLENNIUM Hematocrit 44.6 40.0 - 51.0 % CERNER MILLENNIUM MCV 84.2 79.0 - 92.0 fL CERNER MILLENNIUM MCH 30.4 25.6 - 32.2 pg CERNER MILLENNIUM MCHC 36.1 32.0 - 36.5 gm/dL CERNER MILLENNIUM Platelets 289 145 - 370 x10(3)/mcL CERNER MILLENNIUM RDWSD 39.2 35.0 - 46.0 fL CERNER MILLENNIUM RDWCV 13.0 10.9 - 14.4 % CERNER MILLENNIUM MPV 10.0 9.0 - 12.0 fL CERJAKE MILLENNIUM Blood specimen (specimen) 11/27/2011 12:04 PM EDT 11/27/2011 12:13 PM EDT Narrative Resulting Agency Comment Spec In Lab Madi Thomas MD HEMATOLOGY ORDERABLE S [facility] documented in this encounter Visit Diagnoses Diagnosis Colitis- Primary Other and unspecified noninfectious gastroenteritis and colitis documented in this encounter Care Teams Peoplesoft Analyst Relationship Specialty Start Date End Date Lisa Mayorga MD [address] [place] [address] PCP - General 05/24/11 documented as of this encounter
--- OUTSIDE RECORDS SUMMARY | 2023-12-15 15:49 | XMS_ITS | Encounter Summary ---
Author Organization [facility] [place] [address] Care Team Providers Care Water Resource Manager Name Role Phone Lisa Mayorga MD Primary Care Provider [phone] Encounter Details Date Type Department Care Team (Late st Contact Info) Description 12/24/2011 Orders Only Gastroenterology at [facility] [place] [address] Rosita Parks APRN [facility] [address] Exam for clinical research (Primary Dx) Social History Tobacco Use Types [...] as of this encounter Visit Diagnoses Diagnosis Exam for clinical research- Primary Examination of participant in clinical trial documented in this encounter Care Teams Water Resource Manager Relationship Specialty Start Date End Date Lisa Mayorga MD [address] [place] [address] PCP - General 05/24/11 documented as of this encounter
--- OUTSIDE RECORDS SUMMARY | 2023-12-15 15:49 | XMS_ITS | Clinical Summary ---
Author Organization [facility] Address [address] [place] [address] Care Team Providers Care Surveillance Supervisor Name Role Phone Lisa Mayorga MD Primary Care Provider [phone] Allergies Active Allergy Reactions Criticality Noted Date Comments Zolpidem 03/22/2023 Sleep walking/ driving Nsaids (Non-Steroidal Anti-Inflammatory Drug) Anaphylaxis High 10/02/2022 Medications Medication Sig Dispensed Refills Start Date End Date Status ADVAIR DISKUS 250-50 mcg/dose diskus inhaler 12/16/2022 Active niacin (NICOTINIC ACID) 100 mg tablet Take 1 Tablet by mouth 2 times daily. Active acetaminophen (TYLENOL) 500 mg tablet Take 2 Tablets by mouth every 6 hours as needed for Pain. 03/21/2023 Active HYDROmorphone (DILAUDID) 2 mg tablet Take 1 Tablet by mouth every 4 hours as needed for Pain. 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 The patient does quite well with his ileostomy. He did have resiting of his ileostomy due to a hernia and he now has a recurrent hernia, but it is not a problem. A-fib ([facility]) ablation x2 Social History Tobacco Use Types Packs/Day Years Used Date Smoking Tobacco: Never Passive Smoke Exposure: Never Smokeless Tobacco: Never PRAPARE - Transportation Answer Date Re corded In the past 12 months, has l ack of transportation kept you from medical appointments or from getting medications? No 03/02 In the past 12 months, has l ack of transportation kept you from meetings, work, or from getting things needed for daily living? No 03/19/2023 Housing Stability Vital Sign Answer Warren e Recorded In the last 12 months, was t here a time when you were not able to pay the mortgage or rent on time? No 03/19/2023 Number of Places Lived in the Last Year Not on f ile 03/19/2023 In the last 12 months, was t here a time when you did not have a steady place to sleep or slept in a senior care (including now)? No 03/19/2023 Interpersonal Safety Answer Date Record ed Physically Hurt Never 01/19/2020 Verbally Threaten Not on file 01/19/2020 Sex and Gender Information Value Date Recorded Sex Assigned at Not on file Gender Identity Male 01/20/2023 9:53 EDT Sexual Orientation Not on file Obstetrics History Last Filed Vital Signs Vital Sign Reading Time Taken Comments Blood Pressure 126/83 03/27/2023 1243 EDT Pulse 88 03/27/2023 0452 EDT Temperature 37.2 ??C (98.9 ??F) 03/27/2023 1243 EDT Respiratory Rate 16 03/27/2023 1243 EDT Oxygen Saturation 96% 03/27/2023 1243 EDT Inhaled Oxygen Concentration - - Weight 76.2 kg (168 lb) 03/22/2023 222 EDT Height 175.3 cm (5' 9) 03/22/2023 2229 EDT Body Mass Index 24.81 03/22/2023 2229 EDT Plan of Treatment Health Maintenance Due Date Last Done Comments Hepatitis C Screen 1970 Hepatitis B Vaccine (1 of - 19+ 3-dose series) 01/13 COVID-19 Vaccine ( - 2022- season) 2023 Advance Directives For more information, please contact: [phone] * Full Code (Latest Code Status on File) Date Activated Date Inactivated Comments 03/22/2023 23:35 03/27/2023 19:00 Question Answer Comments When the patient has NO PULSE: Full Code / CPR Who Made the Decision? Default/Not Discussed * Full Code Date Activated Date Inactivated Comments 03/18/2023 7:58 03/21/2023 16:36 Question Answer Comments When the patient has NO PULSE: Full Code / CPR Who Made the Decision? Default/Not Discussed Care Teams Surveillance Supervisor Relationship Specialty Start Date End Date Lisa Mayorga MD [address] [place] [address] PCP - General 01/12/20
--- OUTSIDE RECORDS SUMMARY | 2023-12-15 15:49 | XMS_ITS | Encounter Summary ---
Author Organization [facility] Address [facility] [place] [address] Care Team Providers Care Bindery Machine Tender Name Role Phone Lisa Mayorga MD Primary Care Provider [phone] Encounter Details Date Type Department Care Team (Late st Contact Info) Description 03/23/2013 10:56 AM EDT Anesthesia Event [place] [id number] Jenni Rendon MD [facility] [place] [address] Anesthesia Record Procedure Summary Procedure Name Responsible Anesthesiologist Anesthesia Start Time Anesthesia Stop Time @COLECTOMY, TOTAL WITH ILEOSTOMY (WRVU 30.18) (Abdomen) Jenni Rendon MD 03/23/13 1056 03/23/13 1707 Events Date Time Event Comment 03/23/2013 1056 AN Verify 1056 Start 1056 An Start Data 1115 An Induction 1118 An Intubation 1124 Anesthesia Ready 1149 Break/Relief In 1204 Procedure Start 1215 Break/Relief Out 1556 Break/Relief In JENNI RAE MD 1605 Quick Note Epidural bolus - 10 ml of 0.125% marcaine from pump 1618 Break/Relief Out 1656 Extubation/LMA Out 1656 an stop data 1707 Stop 2013 Meds Name Total Midazolam 2 mg fentaNYL 500 mcg lidocaine IV 100 mg propofol 200 mg Rocuronium 200 mg PHENYLephrine 160 mcg ePHEDrine 10 mg Ondansetron 8 mg ceFAZolin (ANCEF) 2g in dextrose 5% 50 m L 2 g metroNIDAZOLE (FLAGYL) 1000 mg in sodium chloride 0.9% 200 mL (2x100 mL bags) 1,000 mg Heparin 5000 units SQ 5,000 Units methylPREDNISolone sodium succinate (BERNA U-MEDROL) injection 20 mg 20 mg ceFAZolin 2 g HYDROmorphone 2 mg BUpivacaine 0.125% INF 8.27 mL lactated ringers infusion 0 mL lactated ringers 600 mL * Agents Name O2 Air Sevoflurane (et) * Blood No blood administrations on file. Lines, Drains, and Airways Type Details Placement Removal Ileostomy 03/23/13; ileostomy 03/23/13 000 0 by Lauren Torres RN (RETIRED) Peripheral IV Line - Single Lumen 01/14/13; 1134; 03/23/13; 1637 01/14/13 1134 by Avinash Petty 03/23/13 1637 by Rosita Guzman, RN Urethral Catheter 03/23/13; indwelling double lumen catheter; 100% silicone; 16; inserted (By Dr. Esparza at surgical field.); 1; drainage bag to dependent drainage; 03/27/13; 1409 03/23/13 0000 by Kelsie Kitchen RN 03/27/13 1409 by Romy Vogt LPN Incision 03/23/13; abdomen; 01/28/22 (LDA cleanup utility RA#[id number]); 1715 (LDA cleanup utility RA#[id number]) 03/23/13 0000 by Kelsie Kitchen RN 01/28/22 1715 by Marybeth Kitchen Colostomy 03/23/13; other (see comments) (ileostomy.); 03/23/13 (re-entered as ileostomy); 213703/23/13 0000 by Kelsie Kitchen RN 03/23/13 213 by Lauren Torres RN (RETIRED) Peripheral IV Line - Single Lumen 03/23/13; 0929; 03/27/13; 1413 03/23/13 0929 by Yvonne Haro RN 03/27/13 1413 by Kath Myers, RN (Retired) Epidural Thoracic (Loss 7cm, Tip T7-8, Skin 12.5 cm) 03/23/13 1050 by Anita Perdomo RN 03/27/13 0945 by SaraNiya bledsoe APRN (RETIRED) Peripheral IV Line - Single Lumen 03/23/13; 111; 03/25/13; 205503/23/13 111 by Dylan Ballard CRNA 03/25/132055 by Priscilla Garcia RN (RETIRED) Non-Surgical Airway Mask Ventilation: Easy (1); ETT Type: Cuffed, Oral; ETT Size: 7.5 mm; Removal Date: 03/23/13; Removal Time: 165503/23/13 111 by Dylan Ballard CRNA 03/23/131655 by Dylan Ballard CRNA (RETIRED) Arterial LIne 03/23/13; 1121; 03/23/13; 192903/23/13 112 by Dylan Ballard CRNA 03/23/131929 by Do Hay RN documented in this encounter Social History [...] OR Notes * Anesthesia Postprocedure Evaluation - Jenni Rendon MD - 03/23/2013 8:13 PM EDT Patient: Mic Hinojosa Ellie Small Procedure(s) Performed: Procedure(s): @COLECTOMY, TOTAL WITH ILEOSTOMY Actual Anesthetic: No value filed. Patient location: PACU Post-op pain: Adequate analgesia Post-op nausea: no nausea or vomiting Last Vitals: Filed Vitals: 03/23/131999 BP: 133/81 Pulse: 122 Temp: Resp: 16 Post-op cardiovascular and respiratory status: is stable Level of consciousness: awake Complications: no apparent complications and tolerated the procedure well Fluid Status: normal Epidural appears to be working well - vitals stable * Anesthesia Procedure Notes - Alicia Eckert - 03/23/2013 11:09 AM EDT Associated Order(s): ANE NEURAXIAL UPDATED Procedure: Neuraxial Block Post-op Pain Control Type: Epidural The patient was greeted; the risks and benefits were reviewed. The anesthetic consent was obtained.The medical history and chart were reviewed. The timeout was performed. Start time: 03/23/2013 10:30 AM End time: 03/23/2013 10:50 AM Patient Location: Operating Room Patient Prep Position: Prone Prep: Hand Hygiene, Hat, Mask, Sterile Gloves, Gown, Chlorhexidine and Patient Draped Injection technique: continuous Skin Anesthetic Lidocaine 1% 4 ml Procedure Technique Level of needle insertion: T11-12 Needle approach: midline Needle Type: Tuohy Gauge: 18 Needle insertion depth when MILDRED achieved: 7 cm Technique for Loss of Resistance: MILDRED air and MILDRED saline A 20 guage epidural catheter introduced Catheter at skin depth: 12.8 cm Dressing/Secured with: Chlorhexidine Tegaderm and Tegaderm Number of attempts: 2 Events/Notes Imaging: epidurogram obtained and fluoroscopy guided Level of Epidural Tip via Fluoroscopy: T7-8 Iohexol 240 mgI/mL, 2 mL Events: None Additional Notes: Patient tolerated the procedure well. There were no complications. Performed by: Babar LUU Supervising Attending/Fellow: Bobbi Metz MD ~~~~~~~~~~~~~~~~~~~~~~~~~~~~~~~~~~~~~~~~~~~~~~~~~~~~~~~~~~~~ * Anesthesia Preprocedure Evaluation - Alicia Eckert - 03/23/2013 10:12 AM EDT Pre-Anesthesia Evaluation for: Mic Argueta Jr. a 43 y.o. male. Procedure(s): @COLECTOMY, TOTAL W\MUCOSECTOMY, ILEOANAL ANASTOMOSIS Patient Active Problem List Diagnosis ??? Asthma ??? Depression ??? Ulcerative (chronic) enterocolitis ??? Tremor Age at onset 38 with left foot tremor, then right then upper extremity. Partially responsive to klonopin and now gabapentin. Negative ceruloplasmin. No past medical history on file. Past Surgical History Procedure Date ??? Colonoscopy, biopsy 12/24/2011 COLONOSCOPY FLEXIBLE, WITH BX performed by ANDREW BRADLEY at [facility] END[facility]COPY ??? Colonoscopy, diagnostic 01/11/2013 COLONOSCOPY, DIAGNOSTIC performed by Johnathon Esparza MD at [facility] ENDOSCOPY ??? Colonoscopy, biopsy 01/11/2013 COLONOSCOPY FLEXIBLE, WITH BX performed by Johnathon Esparza MD at [facility] END[facility]COPY History Substance Use Topics ??? Smoking status: Former Smoker -- 1.0 packs/day for 10 years Types: Cigarettes Quit date: 04/02/2007 ??? Smokeless tobacco: Never Used ??? Alcohol Use: No History Drug Use No No Known Allergies Medications: MAR and/or home medications have been reviewed. Physical Exam: There were no vitals filed for this visit. There is no height or weight on file to calculate BMI. Airway Assessment: Mallampati: II TM distance: >3 FB Neck ROM: full Cardiovascular Assessment: Rhythm: regular Rate: normal cardiovascular exam normal Pulmonary Assessment: breath sounds clear to auscultation pulmonary exam normal Dental Assessment: - normal exam Misc Assessment: IV access: Peripheral line Anesthesia Plan: ASA 2 general and epidural, with a(n) intravenous induction 91kg 43M with PMH per above significant for well-controlled asthma and chronic ulcerative colitis to OR on 03/23/13 for proctocolectomy with ileal pouch, anal anastomosis, and diverting loop ileostomy. All: NKDA Labs: H/H 16.1/47.5 Plat 285 BUN/Cr 16/0.96 T&S: a pos / antibody neg (valid thru 03/26/13) Code status: Full code Anesthesia plan: Pre-op epidural for post-op pain control, possible arterial line, GETA Alicia Eckert MD Anesthesia CA-3 [phone] Region - Other Informed Consent: Anesthetic plan and risks discussed with patient and spouse. Use of blood products discussed with patient whom consented to blood products. Plan discussed with attending and CHEMICAL PROCESSOR. Misc. Assessment: documented in this encounter Miscellaneous Notes * Addendum Note - Alicia Eckert - 04/01/2013 1:10 PM EDT Addendum created 04/01/130 by Alicia Eckert MD Modules edited:Charges VN * Addendum Note - Alicia Eckert - 04/01/2013 1:10 PM EDT Addendum created 04/01/130 by Alicia Eckert MD Modules edited:Charges VN documented in this encounter Plan of Treatment Not on file documented as of this encounter Procedures Procedure Name Priority Date/Time Associated Diagnosis Comments ANE NEURAXIAL UPDATED Routine 03/23/2013 11:10 AM EDT documented in this encounter Results * ANE NEURAXIAL UPDATED (03/23/2013 11:10 AM EDT) Narrative Alicia Eckert - 03/23/2013 11:10 AM EDT Alicia Eckert MD ? 03/23/2013 11:10 AM Procedure: ?? Neuraxial Block Post-op Pain Control Type: Epidural The patient was greeted; the risks and benefits were reviewed. ?? The anesthetic consent was obtained. ??The medical history and chart were reviewed. ??The timeout was performed. Start time: 03/23/2013 10:30 AM End time: 03/23/2013 10:50 AM Patient Location: Operating Room Patient Prep Position: Prone Prep: Hand Hygiene, Hat, Mask, Sterile Gloves, Gown, Chlorhexidine and Patient Draped Injection technique: continuous Skin Anesthetic Lidocaine 1% ??4 ml Procedure Technique Level of needle insertion: T11-12 Needle approach: midline Needle Type: Tuohy Gauge: 18 Needle insertion depth when MILDRED achieved: 7 cm Technique for Loss of Resistance: MILDRED air and MILDRED saline A 20 guage epidural catheter introduced Catheter at skin depth: 12.8 cm Dressing/Secured with: Chlorhexidine Tegaderm and Tegaderm Number of attempts: 2 Events/Notes Imaging: ??epidurogram obtained and fluoroscopy guided Level of Epidural Tip via Fluoroscopy: T7-8 Iohexol 240 mgI/mL, 2 mL Events: ??None Additional Notes: ??Patient tolerated the procedure well. There were no complications. Performed by: ??Babar LUU Supervising Attending/Fellow: ??Bobbi Metz MD ~~~~~~~~~~~~~~~~~~~~~~~~~~~~~~~~~~~~~~~~~~~~~~~~~~~~~~~~~~~~ Procedure Note Alicia Eckert - 03/23/2013 11:09 AM EDT Procedure: Neuraxial Block Post-op Pain Control Type: Epidural The patient was greeted; the risks and benefits were reviewed. Theanesthetic consent was obtained. The medical history and chart werereviewed. The timeout was performed. Start time: 03/23/2013 10:30 AM End time: 03/23/2013 10:50 AM Patient Location: Operating Room Patient Prep Position: Prone Prep: Hand Hygiene, Hat, Mask, Sterile Gloves, Gown, Chlorhexidine andPatient Draped Injection technique: continuous Skin Anesthetic Lidocaine 1% 4 ml Procedure Technique Level of needle insertion: T11-12 Needle approach: midline Needle Type: Tuohy Gauge: 18 Needle insertion depth when MILDRED achieved: 7 cm Technique for Loss of Resistance: MILDRED air and MILDRED saline A 20 guage epidural catheter introduced Catheter at skin depth: 12.8 cm Dressing/Secured with: Chlorhexidine Tegaderm and Tegaderm Number of attempts: 2 Events/Notes Imaging: epidurogram obtained and fluoroscopy guided Level of Epidural Tip via Fluoroscopy: T7-8 Iohexol 240 mgI/mL, 2 mL Events: None Additional Notes: Patient tolerated the procedure well. There were nocomplications. Performed by: Babar LUU Supervising Attending/Fellow: Bobbi Metz MD ~~~~~~~~~~~~~~~~~~~~~~~~~~~~~~~~~~~~~~~~~~~~~~~~~~~~~~~~~~~~ Alicia Eckert MD REFINED SYRUP OPERATOR [facility] documented in this encounter Visit Diagnoses Not on filedocumented in this encounter Administered Medications Inactive Administered Medications - up to 3 most recent administrations Medication Order MAR Action Action Date Dose Rate Site BUpivacaine 0.125% in NS (MARCAINE) (1.25 mg/mL) (1/8%) neuraxial CONTINUOUS PRN, Starting on Fri03/23/13 at 1605, Until Fri03/23/13 at 1707, Anesthesia Intra-op, Routine New Bag 03/23/2013 4:05 PM EDT 8 mL/hr 8 mL/hr ceFAZolin (ANCEF) 1g in dextrose 5% 50mL PRN, Starting on Fri03/23/13 at 1436, Until Fri03/23/13 at 1707, Administer over 30 Minutes, Anesthesia Intra-op Given 03/23/2013 2:36 PM EDT 2 g ceFAZolin (ANCEF) 2g in dextrose 5% 50 mL 2 g, Intravenous, EVERY 3 HOURS, First dose on Fri03/23/13 at 0945, Until Discontinued, For 30 minutes. , Intra-Operative (Intra-Procedure), Indication for (Active or Suspected): Prophylaxis Given 03/23/2013 11:25 AM EDT 2 g ePHEDrine Sulfate in sodium chloride 0.9% (PF) 50 mg/10 mL (5 mg/mL) injection Syrg PRN, Starting on Fri03/23/13 at 1244, Until Fri03/23/13 at 1707, Anesthesia Intra-op Given 03/23/2013 12:47 PM EDT 5 mg Given 03/23/2013 12:44 PM EDT 5 mg fentaNYL 50mcg/mL injection PRN, Starting on Fri03/23/13 at 1103, Until Fri03/23/13 at 1707, Pain, Anesthesia Intra-op, Routine Given 03/23/2013 1:58 PM EDT 50 mcg Given 03/23/2013 1:42 PM EDT 100 mcg Given 03/23/2013 1:00 PM EDT 100 mcg heparin (porcine) subcutaneous injection PRN, Starting on Fri03/23/13 at 1207, Until Fri03/23/13 at 1707, Anesthesia Intra-op, Routine Given 03/23/2013 12:07 PM EDT 5,000 Units HYDROmorphone (DILAUDID) injection PRN, Starting on Fri03/23/13 at 1546, Until Fri03/23/13 at 1707, Pain, Anesthesia Intra-op, Routine Given 03/23/2013 5:03 PM EDT 0.4 mg Given 03/23/2013 4:56 PM EDT 0.4 mg Given 03/23/2013 4:26 PM EDT 0.4 mg lactated ringers infusion CONTINUOUS PRN, Starting on Fri03/23/13 at 1117, Until Fri03/23/13 at 1707, Anesthesia Intra-op New Bag 03/23/2013 11:17 AM EDT mL lidocaine (PF) (XYLOCAINE) 100 mg/5 mL (2 %) injection PRN, Starting on Fri03/23/13 at 1115, Until Fri03/23/13 at 1707, Anesthesia Intra-op, Routine Given 03/23/2013 11:15 AM EDT 100 mg methylPREDNISolone sodium succinate (SOLU-MEDROL) injection 20 mg 20 mg, Intravenous, ONCE, 1 dose, On Fri03/23/13 at 1245, call center specialist to the OR, Intra-Operative (Intra-Procedure), Routine Given 03/23/2013 12:26 PM EDT 20 mg metroNIDAZOLE (FLAGYL) 1000 mg in sodium chloride 0.9% 200 mL (2x100 mL bags) 1,000 mg, Intravenous, EVERY 8 HOURS, First dose on Fri03/23/13 at 0945, Until Discontinued, Administer over 60 Minutes, Infuse two bags of 500 mg/100 mL each over 30 minutes consecutively. Total dose 1000 mg/200 mL. Document infusion initiation time of first bag., Intra-Operative (Intra-Procedure), Indication for (Active or Suspected): Prophylaxis Given 03/23/2013 11:34 AM EDT 1,000 mg midazolam (VERSED) injection PRN, Starting on Fri03/23/13 at 1103, Until Fri03/23/13 at 1707, Sleep, Anesthesia Intra-op, Routine Given 03/23/2013 11:03 AM EDT 2 mg ondansetron (ZOFRAN) injection PRN, Starting on Fri03/23/13 at 1616, Until 10/22/13 at 1707, Nausea, Anesthesia Intra-op, Routine Given 03/23/2013 4:16 PM EDT 8 mg PHENYLephrine HCl in NS (PF) (RODRICK-SYNEPHRINE) 0.8 mg/10 mL (80 mcg/mL) injection Syrg PRN, Starting on Fri03/23/13 at 1249, Until Fri03/23/13 at 1707, Anesthesia Intra-op, Routine Given 03/23/2013 12:49 PM EDT 160 mcg propofol (DIPRIVAN) 10 mg/mL bolus injection (Anesthesia) PRN, Starting on Fri03/23/13 at 1115, Until Fri03/23/13 at 1707, Anesthesia Intra-op Given 03/23/2013 11:15 AM EDT 200 mg rocuronium (ZEMURON) injection PRN, Starting on Fri03/23/13 at 1145, Until Fri03/23/13 at 1707, Anesthesia Intra-op, Routine Given 03/23/2013 3:28 PM EDT 20 mg Given 03/23/2013 3:21 PM EDT 20 mg Given 03/23/2013 2:23 PM EDT 20 mg documented in this encounter Care Teams Bindery Machine Tender Relationship Specialty Start Date End Date Lisa Mayorga MD [address] [place] [address] PCP - General 05/24/11 documented as of this encounter
--- OUTSIDE RECORDS SUMMARY | 2023-12-15 15:49 | XMS_ITS | Encounter Summary ---
Author Organization [facility] Address [facility] [place] [address] Care Team Providers Care Regional Education Manager Name Role Phone Lisa Mayorga MD Primary Care Provider [phone] Reason for Visit * Reason Comments Ulcerative Colitis Encounter Details Date Type Department Care Team (Latest Contact Info) Description 01/10/2012 10:30 AM EDT Office Visit [place] [address] Johnathon Esparza MD [facility] [place] [address] Ulcerative (chronic) enterocolitis (Primary Dx) Discharge Disposition: Home Social History [...] Reading Time Taken Comments Blood Pressure 147/95 01/10/2012 10:25 AM EDT Pulse 95 01/10/2012 10:25 AM EDT Temperature - - Respiratory Rate 16 01/10/2012 10:25 AM EDT Oxygen Saturation 98% 01/10/2012 10:25 AM EDT Inhaled Oxygen Concentration - - Weight 92.1 kg (203 lb) 01/10/2012 10:25 AM EDT Height 180.3 cm (5' 11) 01/10/2012 10:25 AM EDT Body Mass Index 28.31 01/10/2012 10:25 AM EDT documented in this encounter Progress Notes * Johnathon Esparza MD - 01/10/2012 11:50 AM EDT Mr. Argueta is a 41-year-old male referred by Dr. Madi Thomas to consider surgical options for managing intractable ulcerative colitis. The patient was diagnosed with ulcerative colitis at age 18. He reports onset of diarrhea at that time. He presumed that the symptoms initially were related to viral gastroenteritis and did not pursue workup. The diarrhea persisted for about three months. At that time the patient noted the onset of bloody diarrhea, and following that development he sought medical evaluation. Subsequent evaluation identified the presence of colitis involving 80% of my large intestine. The patient has primarily been treated with steroids to control his disease. He has been on nearly continuous steroid therapy since age 18. Trials with Azulfidine, 6MP, Remicade did not produce any significant improvement in disease and were not pursued. The patient reports that approximately a year ago he was hospitalized for three weeks at [facility] in [place] for flare in symptoms of colitis. At that time he was having 20 bloody bowel movements per day and reports that he lost approximately 60 pounds in weight during that ilness. Symptoms ultimately responded to treatment with high-dose steroids, and the patient has been on Nearly continuous steroid treatment since that time. Most recently he had been taking 20 mg per day. The patient was seen by Dr. Thomas for management of his disease in November 2011. Dr. Thomas raised concerns with the patient regarding long-term steroid use and had the patient begin tapering steroids. The patient tapered the prednisone and discontinued the medication over about four weeks. The patient presented for a colonoscopy examination on December 24, 2011. At that time he had been off the prednisone for approximately a week. He had not experienced any flare in symptoms of colitis. The endoscopic examination revealed scarring in the colonic mucosa with scattered pseudopolyp formation. There was no evidence of active inflammation. Multiple random biopsies revealed chronic inactive colitis. There was no evidence of mucosal dysplasia. The patient subsequently reports that he was experiencing problems with fatigue and listlessness after being off steroids approximately three to four weeks. Presuming that these were symptoms of adrenal insufficiency, he resumed prednisone at 20 mg per day. He is currently on that dose but plans to more gradually taper the prednisone. The patient largely self-medicates with the prednisone and is not being actively followed for tapering regimen for the prednisone. Presently the patient reports he is having two bowel movements per day. Bowel movements are relatively normal in consistency. The patient infrequently experiences urgency with defecation. He also infrequently notes bright red blood with bowel movements. He notes blood both on toilet paper and in the toilet bowl. The patient reports that his weight has been stable. The patient has a history of pilonidal disease. He also reports developing a perineal abscess anterior to the anal canal several years ago. By his description this drained spontaneously but has intermittently drained since that time. Concerns have been raised regarding the potential for an anal fistula. The patient's extra-intestinal manifestations of his disease have been limited to arthritis involving knees, ankles, and neck. The patient also has intermittent aphthous stomatitis. The patient also describes intermittent problems with conjunctivitis. No history of skin lesions as an extra-intestinal manifestation. The patient does not recall undergoing a small bowel followthrough to evaluate small intestine at any point in the course of his illness. On his recent colonoscopy, Dr. Thomas did examine the terminal ileum, and by his description the terminal ileum was normal. There is no family history of inflammatory bowel disease. The patient's past medical history is notable for: 1. Chronic low back pain status post L5-S1 fusion in 2006. 2. Chronic asthma, appears to be related to environmental allergies. The patient is only intermittently symptomatic from the asthma. No history of pneumonia. 3. Hyperlipidemia. 4. Prolonged depression. 5. Chronic tremor of uncertain etiology. A question of multiple sclerosis has been raised but diagnosis is uncertain. 6. Hypogonadism. 7. History of pilonidal disease. 8. History of recurring atrial fibrillation. Review of Systems: As documented on the new patient data sheet and reviewed with the patient is notable for the problems outlined above. In addition, Pulmonary: the patient does not experience chronic cough or wheezing. No history of pneumonia. The patient has a 25 to 82-tbsl-awcc history of smoking but quit smoking in 2005. Cardiovascular: The patient has a history of atrial fibrillation. He has undergone ablation therapy with good response on two occasions, most recently in 2009. The patient has not been on systemic anticoagulation for the history of atrial fibrillation. Presently no troubles with palpitations, no chest pain, dyspnea on exertion, orthopnea, PND, peripheral edema, or claudication. GI: See HPI, no history of peptic ulcer disease, hematemesis, jaundice, or hepatitis. Genitourinary: No dysuria, urinary frequency, hematuria. No history of nephrolithiasis. Endocrine: No history of diabetes or thyroid disease. Neurologic: The patient complains of memory loss which he attributes to the side effects of Neurontin. Mental health: The patient has a history of anxiety/depression. All other systems review is negative. Current Medications: Include Neurontin, Paxil, Zocor, Singulair, and Advair. The patient infrequently uses his albuterol inhaler. The patient has resumed prednisone 20 mg per day. Family History: Unremarkable. Social History: The patient is . He is disabled and cares for his child. He does not smoke and denies alcohol use. On physical examination the patient is a well-developed, moderately overweight male in no acute distress. Significant physical findings include absence of skin rash or jaundice. Neck is supple without mass. There are no cervical bruits. Chest is clear to auscultation. Cardiovascular exam reveals a regular heart rhythm with normal heart sounds. No murmurs or gallops are appreciated. Peripheral pulses are intact. Abdomen is obese and soft without organomegaly or mass. There is no tenderness to palpation. Inspection of the perineum reveals quiescent pilonidal disease with scarring from previous partial excision. There is recurrence of disease at that site. No signs of active abscess. Inspection of the mid perineum reveals no evidence of an anal fistula or defect in the skin. There is no associated induration or tenderness. Anal exam reveals good sphincter tone without mass or tenderness. I cannot feel any defects in the anterior teresa-circumference of the anal canal that would correspond to an internal opening to anal fistula. Examination of the extremities reveals no peripheral edema. Impression: Chronic colitis. Would presume that this is ulcerative colitis, although the history of presentation with Non-bloody diarrhea initially and the history of possible anal fistula raise concerns for possibility that this might be Crohn's colitis. Continued, long-term treatment with steroids is not a satisfactory treatment plan. The patient is aware of the Potentially disastrous consequences of long-term steroid use. I am not certain that the symptoms that caused him to resume prednisone recently are truly a reflection of adrenal insufficiency. The patient is currently planing to decrease the dose by 5 mg a week. I have discussed a more prolonged tapering schedule once the patient gets down to 5 mg to try to get him off over four weeks after he reaches 5 mg dose. His disease is currently quiescent. It is likely, however, that he will have further troubles from colitis in the future. Given the limited therapeutic options available in his case, it is certainly reasonable to consider proceeding with definitive surgical resection. Details of proctocolectomy with ileal pouch anal anastomosis were reviewed. The functional result with the procedure was reviewed. Alternative option for proctocolectomy with permanent ileostomy was also outlined and the functional result with that procedure also reviewed. I have strongly encouraged the patient to consider surgical intervention to treat his disease. He is as yet uncertain but understands that this is likely going to be required. Certainly if he is unable to taper and discontinue the steroids then there can be no question about the need to proceed with colectomy. We will await a decision from the patient. If he wishes to proceed, will have him return for another visit with me in the office to more fully discuss potential risks and complications of the surgery. This was not undertaken today because the patient is accompanied by his young daughter for the appointment today. Would also have the patient meet with Enterostomal Therapy on that date. If we were planning to proceed with surgery, I would want to perform anoscopic and proctoscopic examination to exclude any concerns for active anal disease. Would also want to obtain a small bowel followthrough prior to committing to an ileoanal pouch procedure. documented in this encounter Plan of Treatment Not on file documented as of this encounter Visit Diagnoses Diagnosis Ulcerative (chronic) enterocolitis- Primary documented in this encounter Care Teams Regional Education Manager Relationship Specialty Start Date End Date Lisa Mayorga MD [address] [place] [address] PCP - General 05/24/11 documented as of this encounter
--- OUTSIDE RECORDS SUMMARY | 2023-12-15 15:49 | XMS_ITS | Encounter Summary ---
[place] [address] Care Team Providers Care Mri Technologist Name Role Phone Lisa Mayorga MD Primary Care Provider [phone] Encounter Details Date Type Department Care Team (Late st Contact Info) Description 02/22/2013 Telephone [place] [id number] Grecia Jaimes PA [address] [place] [id number] Social History Tobacco Use Types Packs/Day Years [...] Telephone Encounter - Grecia Jaimes PA - 02/22/2013 12:23 PM EDT Called pt to f/u on sx. Current prednisone dose is 10mg once a day. He took 20mg/day for 7 days after his last visit, then decreased to 10mg/day. BMs are now 5/day, no bleeding, pain still present. Abdomen is still swollen, umbilicus now flat, with adjacent area that now looks like a bubble/?hernia. He is currently scheduled to RTC on 03/[address] Esparza. I will discuss this patient with Dr. Esparza to see if he would like to see the patient sooner. For now, the patient will continue on the current prednisone dose of 10mg/day until further notice. He agrees to do so, and will call us if his symptoms worsen. Grecia Jaimes PA-C Division of Colon & Rectal Surgery [facility] [phone] documented in this encounter Plan of Treatment Not on file documented as of this encounter Visit Diagnoses Not on filedocumented in this encounter Care Teams Mri Technologist Relationship Specialty Start Date End Date Lisa Mayorga MD [address] [place] [address] PCP - General 05/24/11 documented as of this encounter
--- OUTSIDE RECORDS SUMMARY | 2023-12-15 15:49 | XMS_ITS | Encounter Summary ---
Author Organization [facility] Address [facility] [place] [address] Care Team Providers Care Hand Clipper Name Role Phone Lisa Mayorga MD Primary Care Provider [phone] Encounter Details Date Type Department Care Team (Late st Contact Info) Description 10/18/2012 Orders Only [place] [address] Johnathon Esparza MD [facility] [place] [address] Social History Tobacco Use Types Packs/Day Years [...] FILM LIBRARY STORAGE ONLY DX ABDOMEN Routine 10/18/2012 3:55 PM EDT documented in this encounter Results * Film Library- Storage only DX Abdomen (10/18/2012 3:55 PM EDT) 10/18/2012 3:55 PM EDT Narrative [facility] - 12/14/2013 10:12 AM EDT This is a non-reportable exam. Procedure Note Anil Childs - 12/14/2013 This is a non-reportable exam. Johnathon Esparza MD [facility] FILM LIBRARY ORD ERABLES RAD [address] [facility] [place] [address] documented in this encounter Visit Diagnoses Not on filedocumented in this encounter Care Teams Hand Clipper Relationship Specialty Start Date End Date Lisa Mayorga MD [address] [place] [address] PCP - General 05/24/11 documented as of this encounter
--- OUTSIDE RECORDS SUMMARY | 2023-12-15 15:49 | XMS_ITS | Encounter Summary ---
Author Organization [facility] Address [facility] [address] Care Team Providers Care Construction Carpenters Helper Name Role Phone Lisa Mayorga MD Primary Care Provider [phone] Encounter Details Date Type Department Care Team (Latest Contact Info) Description 01/11/2013 9:10 AM EDT - 01/11/2013 1:53 PM EDT Hospital Encounter [place] [address] Pillo Avina MD [facility] [address] Discharge Disposition: Home Social History Tobacco Use [...] you need to be checked. Friday-Friday Clinic [phone] 8a-5p Same Day Endo [phone] 7a-8p Otherwise contact [phone] and ask to speak to the fish header contract assistant Follow up care is a nieves part [...] PILLO AVINA MD 01/11/2013 * Miscellaneous - Provider, Scanning - 01/11/2013 9:36 AM EDT documented in [...] 11:24 AM EDT) Surgical Pathology Report ? [facility] ? Provider: ?? PILLO AVINA ?Pt. Name: ?? DANYA ARGUETA JR ? Acc #: ?[id number] ?Pt. ? Col Date: ?? 01/11/2013 ? [...] pink tissues. ? Sections/Proces sing: (T1) ? [facility] ? Provider: ?? PILLO AVINA ?Pt. Name: ?? DANYA ARGUETA JR ? Acc #: ?[id number] ?Pt. ? Col Date: ?? 01/11/2013 ? [...] Clinical History: ? History of DAI ? [facility] ? Provider: ?? PILLO AVINA ?Pt. Name: ?? MARK CULP, DANYA Micaela ? Acc #: ?[id number] ?Pt. ? Col Date: ?? 01/11/2013 ? /Sex: ?1970,(42 years),Male ? Rec Date: ?? 01/11/2013 ? LOC: ?4T ? SURGICAL PATHOLOGY ? Clinical Diagnosis: ? Screen for dysplasia or microscopic evidence suggesting Crohn's CERNER MILLENNIUM 01/11/2013 11:2 4 AM EDT Pillo Avina MD PATHOLOGY/CYTOLOGY O [place]AN[place] Performing Organization Address [facility] de Phone Number CERJAKE MILLENNIUM * Specimen to Pathology (surgical or derm) (01/11/2013 11:24 AM EDT) AP Specimen 01/11/2013 11:2 4 AM EDT 01/11/2013 11:24 AM EDT Narrative CERNER MILLENNIUM - 01/11/2013 11:24 AM EDT Specimen requisition ordered. ??Separate Pathology report to follow Pillo Avina MD PATHOLOGY/CYTOLOGY O [place] Performing Organization Address [facility] Co de Phone Number CERJAKE MILLENNIUM * Specimen to Pathology (surgical or derm) (01/11/2013 11:24 AM EDT) AP Specimen 01/11/2013 11:2 4 AM EDT 01/11/2013 11:24 AM EDT Narrative CERNER MILLENNIUM - 01/11/2013 11:24 AM EDT Specimen requisition ordered. ??Separate Pathology report to follow Pillo Avina MD PATHOLOGY/CYTOLOGY O [place]ANNA Performing Organization Address [facility] de Phone Number NATHALY VALERA * Specimen to Pathology (surgical or derm) (01/11/2013 11:24 AM EDT) AP Specimen 01/11/2013 11:2 4 AM EDT 01/11/2013 11:24 AM EDT Narrative NATHALY VALERA - 01/11/2013 11:24 AM EDT Specimen requisition ordered. ??Separate Pathology report to follow Pillo Avina MD PATHOLOGY/CYTOLOGY O TAMANNA Performing Organization Address [facility] de Phone Number NATHALY VALERA * Specimen to Pathology (surgical or derm) (01/11/2013 11:24 AM EDT) AP Specimen 01/11/2013 11:2 4 AM EDT 01/11/2013 11:24 AM EDT Narrative NATHALY VALERA - 01/11/2013 11:24 AM EDT Specimen requisition ordered. ??Separate Pathology report to follow Pillo Avina MD PATHOLOGY/CYTOLOGY O TAMANNA Performing Organization Address [facility] de Phone Number NATHALY VALERA * Specimen to Pathology (surgical or derm) (01/11/2013 11:24 AM EDT) AP Specimen 01/11/2013 11:2 4 AM EDT 01/11/2013 11:24 AM EDT Narrative NATHALY VALERA - 01/11/2013 11:24 AM EDT Specimen requisition ordered. ??Separate Pathology report to follow Pillo Avina MD PATHOLOGY/CYTOLOGY O TAMANNA Performing Organization Address [facility] de Phone Number NATHALY VALERA * Specimen to Pathology (surgical or derm) (01/11/2013 11:24 AM EDT) AP Specimen 01/11/2013 11:2 4 AM EDT 01/11/2013 11:24 AM EDT Narrative NATHALY VALERA - 01/11/2013 11:24 AM EDT Specimen requisition ordered. ??Separate Pathology report to follow Pillo Avina MD PATHOLOGY/CYTOLOGY O TAMANNA Performing Organization Address [facility] de Phone Number NATHALY VALERA * Specimen to Pathology (surgical or derm) (01/11/2013 11:24 AM EDT) AP Specimen 01/11/2013 11:2 4 AM EDT 01/11/2013 11:24 AM EDT Narrative NATHALY VALERA - 01/11/2013 11:24 AM EDT Specimen requisition ordered. ??Separate Pathology report to follow Pillo Avina MD PATHOLOGY/CYTOLOGY O TAMANNA Performing Organization Address [facility] de Phone Number NATHALY VALERA * Specimen to Pathology (surgical or derm) (01/11/2013 11:24 AM EDT) AP Specimen 01/11/2013 11:2 4 AM EDT 01/11/2013 11:24 AM EDT Narrative NATHALY VALERA - 01/11/2013 11:24 AM EDT Specimen requisition ordered. ??Separate Pathology report to follow Pillo Avina MD PATHOLOGY/CYTOLOGY O TAMANNA Performing Organization Address [facility] de Phone Number NATHALY VALERA * COLONOSCOPY (01/11/2013 10:09 AM EDT) COLONOSCOPY [facility] Endoscopy Patient Name: Danya Argueta ? Procedure Date: 01/11/2013 10:09 AM ? Date of : 1970 ? Age: 42 ? Order #: [id number] ? Procedure: ? Colonoscopy Indications: ? Personal history of ulcerative colitis Providers: ? Pillo Avina MD, Nathan Wood, ? RN, Selma Mcintyre, Stacker Tender Referring : ?Lisa Mayorga MD Medicines: ? [...] MAR Action Action Date Dose Rate Site sodium chloride 0.9% infusion 50 mL/hr, Intravenous, [...] time) documented in this encounter Care Teams Construction Carpenters Helper Relationship Specialty Start Date End Date Lisa Mayorga MD [address] [place] [address] PCP - General 05/24/11 documented as of this encounter
--- OUTSIDE RECORDS SUMMARY | 2023-12-15 15:49 | XMS_ITS | Encounter Summary ---
Author Organization [facility] Address [facility] [place] [address] Care Team Providers Care Office Support Name Role Phone Lisa Mayorga MD Primary Care Provider [phone] Encounter Details Date Type Department Care Team (Late st Contact Info) Description 10/20/2012 External Results XRay at [address] [place] [address] Provider, Scanning Social History Tobacco Use Types Packs/Day Years [...] Procedure Name Priority Date/Time Associated Diagnosis Comments DIAGNOSTIC RADIOLOGY SCAN Routine 10/19/2012 CT SCAN (SCAN) Routine 10/18/2012 DIAGNOSTIC RADIOLOGY SCAN Routine 10/18/2012 documented in this encounter Results * Scan Doc: Diagnostic Radiology (10/19/2012) Anatomical Region Laterality Modality Other Scanning Provider MEDIA MGR SCAN EXT O RDR/RSLT * Scan Doc: Diagnostic Radiology (10/18/2012) Anatomical Region Laterality Modality Other Scanning Provider MEDIA MGR SCAN EXT O RDR/RSLT * Scan Doc: CT Scan (10/18/2012) Anatomical Region Laterality Modality Other Scanning Provider MEDIA MGR SCAN EXT O RDR/RSLT documented in this encounter Visit Diagnoses Not on filedocumented in this encounter Care Teams Office Support Relationship Specialty Start Date End Date Lisa Mayorga MD [address] [place] [address] PCP - General 05/24/11 documented as of this encounter
--- OUTSIDE RECORDS SUMMARY | 2023-12-15 15:49 | XMS_ITS | Encounter Summary ---
[place] [address] Care Team Providers Care Glaze Wiper Name Role Phone Lisa Mayorga MD Primary Care Provider [phone] Encounter Details Date Type Department Care Team (Late st Contact Info) Description 03/17/2013 2:20 PM EDT Clinical [place] [address] Social History Tobacco Use Types Packs/Day Years [...] Taken Comments Blood Pressure - - Pulse 115 03/17/2013 2:12 PM EDT Temperature - - Respiratory Rate - - Oxygen Saturation 96% 03/17/2013 2:12 PM EDT Inhaled Oxygen Concentration - - Weight 92.9 kg (204 lb 12.8 oz) 03/17/2013 2:12 PM EDT Height 177.8 cm (5' 10) 03/17/2013 2:12 PM EDT Body Mass Index 29.39 03/17/2013 2:12 PM EDT documented in this encounter Progress Notes * Peter Coates RN - 03/17/2013 2:50 PM EDT PAT Questionnaire reviewed with patient while in Pre-Admission Testing for upcoming surgery date of03/23/[address] Esparza. Pt denies problems with anesthesia in the past. Pt reports that his asthma is well controlled with prescribed medications. Pt given [place] Advanced Directives booklet. Pre-operative folder reviewed with patient. Patient verbalizes good understanding of all information reviewed. Labwork performed while in Pre-Admission Testing. PETER COATES, RN documented in this encounter Plan of Treatment Not on file documented as of this encounter Visit Diagnoses Not on filedocumented in this encounter Care Teams Glaze Wiper Relationship Specialty Start Date End Date Lisa Mayorga MD [address] [place] [address] PCP - General 05/24/11 documented as of this encounter
--- OUTSIDE RECORDS SUMMARY | 2023-12-15 15:49 | XMS_ITS | Encounter Summary ---
Author Organization [facility] Address [facility] [place] [address] Care Team Providers Care Bilingual Patient Support Caseworker Name Role Phone Lisa Mayorga MD Primary Care Provider [phone] Encounter Details Date Type Department Care Team (Latest Contact Info) Description 01/14/2013 10:26 AM EDT - 01/14/2013 11:59 PM EDT Hospital [place] [address] CLINIC, DR DANIA Esparza, Johnathon [place] MD [facility] [place] [address] Ulcerative colitis Discharge Disposition: Home Social History Tobacco Use [...] daily. 09/18/2017 documented as of this encounter Miscellaneous Notes * Miscellaneous - Provider, Scanning - 01/19/2013 9:58 AM EDT documented in this encounter Plan of Treatment Not on file documented as of this encounter Procedures Procedure Name Priority Date/Time Associated Diagnosis Comments CT ABDOMEN AND PELVIS W CONTRAST Routine 01/14/2013 11:48 AM EDT Ulcerative colitis documented in this encounter Results * CT abdomen & [...] in this encounter Visit Diagnoses Diagnosis Ulcerative colitis Ulcerative colitis, unspecified documented in this encounter Administered Medications Inactive Administered Medications - up to 3 most recent administrations Medication Order MAR Action Action Date Dose Rate Site barium sulfate (VOLUMEN) oral suspension 450 mL 450 mL, Oral, ONCE PRN, 3 doses, Starting on Nasreen 01/14/13 at 1131, Until Nasreen 01/14/13 at 1115, Per Protocol, Routine Given 01/14/2013 11:15 AM EDT 450 mLs Given 01/14/2013 11:00 AM EDT 450 mLs Given 01/14/2013 10:30 AM EDT 450 mLs iohexol (OMNIPAQUE) 350 mg iodine/mL injection 38,500 mg 38,500 mg (110 mL), Intravenous, ONCE PRN, 1 dose, Starting on Nasreen 01/14/13 at 1130, Until Nasreen 01/14/13 at 1134, Per Protocol, Routine Given 01/14/2013 11:34 AM EDT 38,500 mg documented in this encounter Care Teams Bilingual Patient Support Caseworker Relationship Specialty Start Date End Date Lisa Mayorga MD [address] [place] [address] PCP - General 05/24/11 documented as of this encounter
--- OUTSIDE RECORDS SUMMARY | 2023-12-15 15:49 | XMS_ITS | Encounter Summary ---
[place] [address] Care Team Providers Care Multi Purpose Machine Operator Name Role Phone Lisa Mayorga MD Primary Care Provider [phone] Encounter Details Date Type Department Care Team (Late st Contact Info) Description 02/18/2013 Telephone [place] [id number] Grecia Jaimes PA [address] [place] [address] Social History Tobacco Use Types Packs/Day Years [...] Telephone Encounter - Grecia Jaimes PA - 02/18/2013 8:07 AM EDT Called patient at home phone number today to f/u on sx since starting him on prednisone 20mg/day athis last visit on 02/12. He had been instructed to call in to clinic on Friday (yesterday) to letus know whether sx had improved on that dose, so that we could change the dose if needed. He did not call, and there was no answer when I called him this morning. I left [facility] for him to call me in clin ic with status of sx on current dose of prednisone. Will wait to hear from patient. Grecia Jaimes PA-C Division of Colon & Rectal Surgery [facility] [phone] documented in this encounter Plan of Treatment Not on file documented as of this encounter Visit Diagnoses Not on filedocumented in this encounter Care Teams Multi Purpose Machine Operator Relationship Specialty Start Date End Date Lisa Mayorga MD [address] [place] [address] PCP - General 05/24/11 documented as of this encounter
--- OUTSIDE RECORDS SUMMARY | 2023-12-15 15:49 | XMS_ITS | Encounter Summary ---
Author Organization [facility] Address [facility] [place] [address] Care Team Providers Care Merchandising Execution Manager Name Role Phone Lisa Mayorga MD Primary Care Provider [phone] Encounter Details Date Type Department Care Team (Late st Contact Info) Description 12/24/2011 1:00 PM EDT - 12/24/2011 2:00 PM EDT [place] [address] Madi Thomas MD [facility] [place] [place] [address] COLONOSCOPY FLEXIBLE, WITH BX (WRVU 3.56) Social History Tobacco Use Types Packs/Day Years [...] occurs please contact your M.D. Please call [phone] before 5 pm with problems, questions or concerns. After 5pm call [phone] and ask to speak with the plaster patternmaker honing machine operator production. Discharge instructions reviewed with patient who expresses understanding. * Attachments The following attachments cannot be sent through Care Everywhere. * COLONOSCOPY: WHAT TO EXPECT AT HOME (MONEGASQUE) documented in this encounter Medications at Time [...] 3:47 PM EDT) Surgical Pathology Report ? [facility] ? Provider: ?? MADI THOMAS ?Pt. Name: ?? DANYA ARGUETA JR ? Acc #: ?[id number] ?Pt. ? Col Date: ?? 12/24/2011 ? [...] ? XL ? 12/25/11 Verified by: ? Muna Rosa MD ? Pathologist ? (Electronic Signature) ? [...] tissues. ? Sections/Process ing: ??(T4) ??vms/EJR ? [facility] ? Provider: ?? MADI THOMAS ?Pt. Name: ?? MARK CULP, DANYA Hinojosa ? Acc #: ?[id number] ?Pt. ? Col Date: ?? 12/24/2011 ? /Sex: ?1970,(41 years),Male ? Rec Date: ?? 12/24/2011 ? LOC: ?4T ? SURGICAL PATHOLOGY ? ---Clinical Information--- ? Specimen Submitted: ? A - Random bx of the right colon surveillance ? B - Random bx of the left colon ? Clinical History/Diagnosi s: ? 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 ??Separate Pathology report to follow Madi Thomas MD PATHOLOGY/CYTOLOGY O TAMANNA Performing Organization Address City/[facility]/ZIP Co de Phone Number NATHALY VALERA * Specimen to Pathology (surgical or derm) (12/24/2011 2:06 PM EDT) AP Specimen 12/24/2011 2:06 PM EDT 12/24/2011 2:06 PM EDT Narrative NATHALY MILLERIUM - 12/24/2011 2:06 PM EDT Specimen requisition ordered. ??Separate Pathology report to follow Madi Thomas MD PATHOLOGY/CYTOLOGY O TAMANNA Performing Organization Address City/[facility]/ZIP Co de Phone Number NATHALY VALERA * COLONOSCOPY (12/24/2011 1:21 PM EDT) COLONOSCOPY [facility] Endoscopy ___ Patient Name: Danya Argueta ? Procedure Date: 12/24/2011 1:21 PM ? [facility]: [id number] ? Date of : 1970 ? Age: 41 ? Order #: [id number] ? ___ Procedure: ? Colonoscopy Indications: ? long h/o UC, assess disease activity, ? recently weaned off Prednisone on no ? IBD medications Providers: ? Madi Thomsa MD, Maryann Maxwell ? Emilia, MATTHEW, Hay Horta, Dress Designer Referring MD: ?Lisa Mayorga MD Medicines: ? [...] fentaNYL 50mcg/mL injection ONCE PRN, Starting on Fri12/24/11 at 1333, Until Fri12/24/11 at 1812, Pain, Intra-Operative (Intra-Procedure), Routine Given 12/24/2011 1:42 PM EDT 50 mcg Given 12/24/2011 1:36 PM EDT 50 mcg Given 12/24/2011 1:33 PM EDT 50 mcg midazolam (VERSED) injection ONCE PRN, Starting on 12/24/11 at 1333, Until Fri12/24/11 at 1812, Sleep, Intra-Operative (Intra-Procedure), Routine Given 12/24/2011 1:42 PM EDT 1 mg Given 12/24/2011 1:36 PM EDT 1 mg Given 12/24/2011 1:33 PM EDT 1 mg documented in this encounter Active and Recently Administered Medications Times are shown in EDT. PRN Medication Order 12/22/2011 12/23/2011 12/24/2011 fentaNYL 50mcg/mL injection (CANCELED) ONCE PRN, Starting on 12/24/11 at 1333, Until Fri12/24/11 at 1812, Pain, Intra-Operative (Intra-Procedure), Routine 1333 (Given - Provid er: Maryann Nieto RN)1336 (Given - Provider: Maryann Nieto RN)1342 (Given - Provider: Maryann Nieto, MATTHEW) midazolam (VERSED) injection (CANCELED) ONCE PRN, Starting on Fri12/24/11 at 1333, Until Fri12/24/11 at 1812, Sleep, Intra-Operative (Intra-Procedure), Routine 1333 (Given - Provid er: Maryann Nieto RN)1336 (Given - Provider: Maryann Nieto RN)1342 (Given - Provider: Maryann Nieto RN) documented in this encounter Care Teams Merchandising Execution Manager Relationship Specialty Start Date End Date Lisa Mayorga MD [address] [place] [address] PCP - General 05/24/11 documented as of this encounter
--- OUTSIDE RECORDS SUMMARY | 2023-12-15 15:49 | XMS_ITS | Encounter Summary ---
Author Organization [facility] Address [facility] [place] [address] Care Team Providers Care Mail Processing Equipment Mechanic Name Role Phone Lisa Mayorga MD Primary Care Provider [phone] Encounter Details Date Type Department Care Team (Late st Contact Info) Description 02/18/2013 Orders [place] [address] Lauren Scott RN Ulcerative colitis Social History Tobacco Use Types [...] documented as of this encounter Results * Creatinine (03/17/2013 2:55 PM EDT) Creatinine 0.96 0.80 - 1.50 mg/dL [facility] Comment: Please note that the pediatric reference intervals supplied above were not validated at [facility]. Results from pediatric patients should be interpreted in conjunction to the patient's age, height and muscle mass. Estimated GFR >60 >=[address] [facility] [address] Comment: This estimated GFR (eGFR) value was [...] Esparza MD CHEMISTRY ORDERABLES Performing Organization Address City/[facility] Co de Phone Number CERNER JOSE JUANENNIUM * BUN (03/17/2013 2:55 PM EDT) BUN 16 10 - 20 mg/dL CERNER MILLENNIUM Blood specimen (specimen) 03/17/2013 2:55 PM EDT 03/17/2013 3:19 PM EDT Narrative Resulting Agency Comment Spec In Lab Johnathon Esparza MD CHEMISTRY ORDERABLES Performing Organization Address [facility] Co de Phone Number CERNER MILLENNIUM * (ABNORMAL) CBC (with Diff) (03/17/2013 2:55 PM EDT) WBC 11.8(H) 4.0 - 10.0 x10(3)/mcL CERNER MILLENNIUM RBC 5.48 4.63 - 6.08 x10(6)/mcL CERNER MILLENNIUM Hemoglobin 16.1 13.7 - 17.5 gm/dL CERNER MILLENNIUM Hematocrit 47.5 40.0 - 51.0 % CERNER MILLENNIUM MCV 86.7 79.0 - 92.0 fL CERNER MILLENNIUM MCH 29.4 25.6 - 32.2 pg CERNER MILLENNIUM MCHC 33.9 32.0 - 36.5 gm/dL CERNER MILLENNIUM Platelets 285 145 - 370 x10(3)/mcL CERNER MILLENNIUM RDWSD 42.0 35.0 - 46.0 fL CERNER MILLENNIUM RDWCV 13.2 10.9 - 14.4 % CERNER MILLENNIUM MPV 9.8 9.0 - 12.0 fL CERNER MILLENNIUM Blood specimen (specimen) 03/17/2013 2:55 PM EDT 03/17/2013 3:19 PM EDT Narrative Resulting Agency Comment Spec In Lab Johnathon Esparza MD HEMATOLOGY ORDERABLE S [facility] documented in this encounter Visit Diagnoses Diagnosis Ulcerative colitis Ulcerative colitis, unspecified documented in this encounter Care Teams Mail Processing Equipment Mechanic Relationship Specialty Start Date End Date Lisa Mayorga MD [address] [place] [address] PCP - General 05/24/11 documented as of this encounter
--- OUTSIDE RECORDS SUMMARY | 2023-12-15 15:49 | XMS_ITS | Referral Summary ---
Author Organization [facility] Address [address] [place] [address] Care Team Providers Care Chemical Waste Management Technician Name Role Phone Lisa Mayorga MD Primary Care Provider [phone] Allergies Active Allergy Reactions Criticality Noted Date [...] Diagnosed Date Abdominal pain 03/23/2023 Postoperative ileus ([facility]) 03/22/2023 Ulcerative colitis, chronic, other complication ([facility]) 03/18/2023 Bacteremia Social History Tobacco Use Types Packs/Day Years [...] place to sleep or slept in a detention (including now)? No 03/19/2023 Interpersonal Safety Answer Date Record ed Physically Hurt Never 01/19/2020 Verbally Threaten Not on file 01/19/2020 Sex and Gender Information Value Date Recorded Sex Assigned at Not on file Gender Identity Male 01/20/2023 9:53 EDT Sexual Orientation Not on file Last Filed Vital Signs Vital Sign Reading Time Taken Comments Blood Pressure 126/83 03/27/2023 1243 EDT Pulse 88 03/27/2023 0452 EDT Temperature 37.2 ??C (98.9 ??F) 03/27/2023 1243 EDT Respiratory Rate 16 03/27/2023 1243 EDT Oxygen Saturation 96% 03/27/2023 1243 EDT Inhaled Oxygen Concentration - - Weight 76.2 kg (168 lb) 03/22/20232228 EDT Height 175.3 cm (5' 9) 03/22/20232228 EDT Body Mass Index 24.81 03/22/20232228 EDT Functional Status Functional Status Response Date of Assess ment Are you deaf or do you have serious difficulty h earing? No 03/23/2023 Are you blind or do you have serious difficulty seeing, even when wearing glasses? No 03/23/2023 Do you have serious difficul ty walking or climbing stairs? (5 years old or older) No 03/23/2023 Do you have difficulty dress ing or bathing? (5 years old or older) No 03/23/2023 Because of a physical, menta l, or emotional condition, do you have difficulty doing errands alone such as visiting a doctor's office or shopping? (15 years old or older) Yes 03/23/2023 Cognitive Status Response Date of Assessm ent Because of a physical, menta l, or emotional condition, do you have serious difficulty concentrating, remembering, or making decisions? (5 years old or older) No 03/23/2023 Plan of Treatment Not on file Advance Directives For more information, please contact: [phone] * Full Code (Latest Code Status on [...] Made the Decision? Default/Not Discussed Care Teams Chemical Waste Management Technician Relationship Specialty Start Date End Date Lisa Mayorga MD [address] [place] [address] PCP - General 01/12/20
--- OUTSIDE RECORDS SUMMARY | 2023-12-15 15:49 | XMS_ITS | Encounter Summary ---
Author Organization [facility] Address [facility] [place] [address] Care Team Providers Care Chemical Etching Processor Name Role Phone Lisa Mayorga MD Primary Care Provider [phone] Encounter Details Date Type Department Care Team (Late st Contact Info) Description 10/18/2012 Orders Only [place] [address] Johnathon Esparza MD [facility] [place] [address] Social History Tobacco Use Types Packs/Day Years [...] Associated Diagnosis Comments FILM LIBRARY STORAGE ONLY CT ABDOMEN AND PELVIS Routine 10/18/2012 4:00 PM EDT documented in this encounter Results * Film Library- Storage only CT abdomen & pelvis (10/18/2012 4:00 PM EDT) 10/18/2012 4:00 PM EDT Narrative RAD - 12/14/2013 10:12 AM EDT This is a non-reportable exam. Procedure Note Anil Childs - 12/14/2013 This is a non-reportable exam. Johnathon Esparza MD IM FILM LIBRARY ORD ERABLES RAD [address] [place] [address] documented in this encounter Visit Diagnoses Not on filedocumented in this encounter Care Teams Chemical Etching Processor Relationship Specialty Start Date End Date Lisa Mayorga MD [address] [place] [address] PCP - General 05/24/11 documented as of this encounter
--- OUTSIDE RECORDS SUMMARY | 2023-12-15 15:50 | XMS_ITS | Encounter Summary ---
Author Organization [facility] Address [address] [place] [address] Care Team Providers Care Analytical Tech Name Role Phone Lisa Mayorga MD Primary Care Provider [phone] Reason for Visit * Reason Onset Date Comments Prior Auth, Medication 01/23/2023 Encounter Details Date Type Department Care Team (Late st Contact Info) Description 01/23/2023 Telephone [facility] General Surgery - [facility] [address] [place], [place] [id number] Howard Flores MD [address] [facility], [address] [place] [address] Prior Auth, Medication Social History Tobacco Use Types Packs/Day Years Used Date Smoking Tobacco: Never Passive Smoke Exposure: Never Smokeless Tobacco: Never Interpersonal Safety Answer Date Record ed Physically Hurt Never 01/19/2020 Verbally Threaten Not on file 01/19/2020 Sex and Gender Information Value Date Recorded Sex Assigned at Not on file Gender Identity Male 01/20/2023 9:53 EDT Sexual Orientation Not on file documented as of this encounter Miscellaneous Notes * Telephone Encounter - Alanna Calvillo - 01/23/2023 1213 EDT ERROR documented in this encounter Plan of Treatment Not on file documented as of this encounter Visit Diagnoses Not on filedocumented in this encounter Care Teams Analytical Tech Relationship Specialty Start Date End Date Lisa Mayorga MD [address] [place] [address] PCP - General 01/12/20 documented as of this encounter
--- OUTSIDE RECORDS SUMMARY | 2023-12-15 15:50 | XMS_ITS | Encounter Summary ---
Author Organization [facility] Address [address] [place] [address] Care Team Providers Care Jig Grinder Set Up Operator Name Role Phone Lisa Mayorga MD Primary Care Provider [phone] Reason for Visit * Reason Onset Date Comments Prior Auth, Medication 01/23/2023 Encounter Details Date Type Department Care Team (Late st Contact Info) Description 01/23/2023 Telephone [facility] General Surgery - [facility] [address] [place], [place] [id number] Howard Flores MD [address] [facility] [place] [address] Prior Auth, Medication Social History [...] encounter Miscellaneous Notes * Telephone Encounter - Aylin Pepper RN - 01/23/2023 1012 EDT Insurance will not cover combination rectal products but will cover with a $12 copay the anusol rectal cream. [facility] * Telephone Encounter - Alanna Calvillo - 01/23/2023 1006 EDT Needs prior authorization for Proctofoam 1-1% foam documented in this encounter Plan of Treatment Not on file documented as of this encounter Visit Diagnoses Not on filedocumented in this encounter Care Teams Jig Grinder Set Up Operator Relationship Specialty Start Date End Date Lisa Mayorga MD [address] [place] [address] PCP - General 01/12/20 documented as of this encounter
--- OUTSIDE RECORDS SUMMARY | 2023-12-15 15:50 | XMS_ITS | Encounter Summary ---
Author Organization [facility] Address [address] [place] [address] Care Team Providers Care Engineer Technical Staff Name Role Phone Lisa Mayorga MD Primary Care Provider [phone] Encounter Details Date Type Department Care Team (Latest Contact Info) Description 03/22/2023 Hospital Encounter [facility] [place] Discharge Disposition: Home or Self Care Social History Tobacco Use Types Packs/Day Years [...] place to sleep or slept in a care home (including now)? No 03/19/2023 Interpersonal Safety Answer Date Record ed Physically Hurt Never 01/19/2020 Verbally Threaten Not on file 01/19/2020 Sex and Gender Information Value Date Recorded Sex Assigned at Not on file Gender Identity Male 01/20/2023 9:53 EDT Sexual Orientation Not on file documented as of this encounter Functional Status Functional Status Response Date of Assess ment Are you deaf or do you have serious difficulty h earing? No 03/18/2023 Are you blind or do you have serious difficulty seeing, even when wearing glasses? No 03/18/2023 Do you have serious difficul ty walking or climbing stairs? (5 years old or older) No 03/18/2023 Do you have difficulty dress ing or bathing? (5 years old or older) No 03/18/2023 Because of a physical, menta l, or emotional condition, do you have difficulty doing errands alone such as visiting a doctor's office or shopping? (15 years old or older) No 03/18/2023 Cognitive Status Response Date of Assessm ent Because of a physical, menta l, or emotional condition, do you have serious difficulty concentrating, remembering, or making decisions? (5 years old or older) No 03/18/2023 documented as of this encounter Medications at Time of Discharge Medication Sig Dispensed Refills Start Date End Date acetaminophen (TYLENOL) 500 mg tablet Take 2 Tablets by mouth every 6 hours as needed for Pain. 03/21/2023 ADVAIR DISKUS 250-50 mcg/dose diskus inhaler 12/16/2022 HYDROmorphone (DILAUDID) 2 mg tablet Take 1 Tablet by mouth every 4 hours as needed for Pain. Daily Max: 12 mg 10 Tablet 03/21/2023 niacin (NICOTINIC ACID) 100 mg tablet Take 1 Tablet by mouth 2 times daily. cefpodoxime (VANTIN) 200 mg tablet Take 1 Tablet by mouth every 12 hours for 8 days. 16 Tablet 03/27/2023 04/04/2023 documented as of this encounter Discharge Disposition Disposition Code Departure Means Destination Home or Self Care documented in this encounter Plan of Treatment Not on file documented as of this encounter Procedures Procedure Name Priority Date/Time Associated Diagnosis Comments XR OUTSIDE IMAGES CHEST Routine 03/22/2023 11:14 EDT documented in this encounter Results * XR OUTSIDE IMAGES CHEST (03/22/2023 11:14 EDT) Narrative 03/24/2023 11:14 EDT This is a non-reportable exam. External Imaging IMG OTHER IMAGING OR DERABLES documented in this encounter Visit Diagnoses Not on filedocumented in this encounter Care Teams Engineer Technical Staff Relationship Specialty Start Date End Date Lisa Mayorga MD [address] [place] [address] PCP - General 01/12/20 documented as of this encounter
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
--- OUTSIDE RECORDS SUMMARY | 2023-12-15 15:50 | XMS_ITS | Encounter Summary ---
Author Organization [facility] Address [address] [place] [address] Care Team Providers Care Telegraph Service Rater Name Role Phone Lisa Mayorga MD Primary Care Provider [phone] Encounter Details Date Type Department Care Team (Latest Contact Info) Description 03/22/2023 Travel Social History Tobacco Use Types Packs/Day Years [...] place to sleep or slept in a half-way (including now)? No 03/19/2023 Interpersonal Safety Answer [...] No 03/18/2023 documented as of this encounter Plan of Treatment Not on file documented as of this encounter Visit Diagnoses Not on filedocumented in this encounter Care Teams Telegraph Service Rater Relationship Specialty Start Date End Date Lisa Mayorga MD [address] [place] [id number] PCP - General 01/12/20 documented as of this encounter
--- OUTSIDE RECORDS SUMMARY | 2023-12-15 15:50 | XMS_ITS | Encounter Summary ---
Author Organization [facility] Address [address] [place] [address] Care Team Providers Care Glass Mechanic Name Role Phone Lisa Mayorga MD Primary Care Provider [phone] Reason for Visit * Auth/Cert (Routine) Specialty Diagnoses / Procedures [facility] Referred To Contact Diagnoses Proctitis Procedures CT PROCTECTOMY,PART,NO ANAST,PERINEAL Perineal Proctectomy Referral ID Status Reason Start Date Expiration Date Visits Re quested Visits Authorized [id number] 03/18/2023 03/19/2023 1 1 Encounter Details Date Type Department Care Team (Late st Contact Info) Description 03/18/2023 9:05 EDT - 03/18/2023 11:15 EDT Surgery [facility] OR [address] [place] [address] [phone] Howard Flores MD [address] [place] [address], [facility], [address] [place] [address] Perineal Proctectomy [29123 (CPT??)] Surgery Details Date/Time Status Location OR Service Patient Class Case Class Case Type Trauma Case? 03/18/23 0905 Posted [facility] OR [facility] 14 General Surger y Admit H - Elective Panel 1 Procedure LRB Anes Op Region Wound Class Comments Perineal Proctectomy N/A General Anus Class II/ Clean Contaminated Surgeon Surgeon Role Service Panel Charito Francisco MD Resident - Assisting General 1 Howard Flores MD Primary General 1 documented in this encounter Social History Tobacco [...] place to sleep or slept in a assisted (including now)? No 03/19/2023 Interpersonal Safety Answer Date Record ed Physically Hurt Never 01/19/2020 Verbally Threaten Not on file 01/19/2020 Sex and Gender Information Value Date Recorded Sex Assigned at Not on file Gender Identity Male 01/20/2023 9:53 EDT Sexual Orientation Not on file documented as of this encounter Last Filed Vital Signs Vital Sign Reading Time Taken Comments Blood Pressure 132/97 03/18/2023 0748 EDT Pulse - - Temperature 36.7 ??C (98.1 ??F) 03/18/2023 0748 EDT Respiratory Rate 12 03/18/2023 0748 EDT Oxygen Saturation 96% 03/18/2023 0748 EDT Inhaled Oxygen Concentration - - Weight 79.3 kg (174 lb 13.2 oz) 03/18/2023 0815 EDT Height 172.7 cm (5' 8) 03/18/2023 0815 EDT Body Mass Index 26.58 03/18/2023 0815 EDT documented in this encounter Functional Status Functional Status Response [...] No 03/18/2023 documented as of this encounter Discharge Summaries * Mahad James MD - 03/21/2023 0958 EDT Surgery Discharge Summary Primary Care Provider: Lisa Mayorga Attending Physician: Howard Flores MD Admit Date: 03/18/2023 Discharge Date: 03/21/2023 Disposition: Home or self care Problems and Procedures Admitting Diagnosis: Retained rectal stump with a history of ulcerative colitis. Principal/Final Diagnosis: Retained rectal stump with a history of ulcerative colitis Additional Problems Managed in the Hospital Active Hospital Problems Diagnosis Date Noted ??? *Ulcerative colitis, chronic, other complication ([facility]) 03/18/2023 Resolved Hospital Problems No resolved problems to display. Principal Procedure: Perineal Proctectomy Date: 03/18/2023 Secondary Procedures: none Hospital Course Juve Argueta was evaluated in the General Surgery clinic for symptomatic rectal stump s/p total abdominal colectomy many years ago for ulcerative colitis and was admitted on the day of surgery when anelective perineal proctectomy was performed without complication. He was recovered in PACU and transferred to the surgical floor for postoperative monitoring. An indwelling pope catheter was removedand he retained 600cc of urine, prompting reinsertion of pope catheter with plan to leave in for several days given extensive intraoperative tissue dissection around the bladder. On POD#2, patient acutely presented tachypneic and tachycardic and began to complain of SOB, chest pain, and had low volume hemoptysis. A rapid response was initiated. Patient was administered a total of 0.8 mg nitroglycerin which provided pain relief. An EKG was obtained showing sinus tachycardia.A CT chest angiography, CT abdomen and pelvis, TTE, and troponin were ordered and all unremarkable.Patient was transferred to the SICU given acute decompensation. All symptoms resolved spontaneouslyand after pain management. Patient remained hemodynamically stable and asymptomatic, was transferred back to [place] [address] that same day. No further incident. His diet was advanced which he tolerated and had baseline return of bowel function. He was discharged home to follow up in our clinic. Allergies and Immunizations Allergies Allergen Reactions ??? Nsaids (Non-Steroidal Anti-Inflammatory Drug) Anaphylaxis There is no immunization history on file for this patient. Transition of Care Plans Condition at Discharge Stable Assessment at Discharge Vital signs: Patient Vitals for the past 12 hrs: BP Resp Temp SpO2 O2 Flow Rate (L/min) O2 Device 03/21/23 0909 132/75 18 37 ??C (98.6 ??F) 97 % 0 l/min None 03/21/23 0508 123/86 18 36.8 ??C (98.3 ??F) 96 % -- None Results Pending at Discharge Test results still pending from this admission Procedure Component Value Units Date/Time SURGICAL PATHOLOGY [[id number]] Collected: 03/18/23 1059 Lab Status: In process Specimen: Tissue from Colon Updated: 03/18/23 1533 Relevant Studies at Discharge CT ABDOMEN PELVIS W CONTRAST Result Date: 03/20/2023 1. Expected postoperative changes in the abdomen and pelvis, status post proctectomy. No organized collection or unexpected acute inflammatory changes in the abdomen or pelvis. 2. Right abdominal endileostomy, status post remote total colectomy. 3. Prior bilateral inguinal hernia repair and posterior L5-S1 fusion. [id number] CT ANGIO CHEST PE PROTOCOL Result Date: 03/20/2023 No evidence of pulmonary emboli or other significant abnormality [id number] FL CYSTOGRAM Result Date: 03/19/2023 No evidence of leak or fistula [id number] Last Lab Results at Discharge CBC: Lab Results Component Value Date WBC 7.17 03/21/2023 RBC 4.88 03/21/2023 HGB 14.0 03/21/2023 HCT 39.8 03/21/2023 MCV 82 03/21/2023 MCH 28.7 03/21/2023 MCHC 35.2 03/21/2023 PLT 268 03/21/2023 DIFFTYPE Auto 03/20/2023 03/20/2023 Labs: Troponin <0.034 NT Pro BNP 125 Discharge Follow Up Upcoming Appointments Apr 28, 2023 15:20 Post Op Visit with Howard Flores MD [facility] - [facility] (--) [address] [facility] [id number] MAHAD JAMES MD 03/21/2023 9:58 documented in this encounter Medications at Time [...] 1 Tablet by mouth 2 times daily. documented as of this encounter Ordered Prescriptions Prescription Sig Dispensed Refills Start Date End Da te HYDROmorphone (DILAUDID) 2 mg tablet Take 1 Tablet by mouth every 4 hours as needed for Pain. Daily Max: 12 mg 10 Tablet 03/21/2023 acetaminophen (TYLENOL) 500 mg tablet Take 2 Tablets by mouth every 6 hours as needed for Pain. 03/21/2023 documented in this encounter Discharge Disposition Disposition Code Departure Means Destination Comment s Home or Self Usp documented in this encounter Progress Notes * Berenice Mao RN - 03/21/2023 1052 EDT CASE MANAGEMENT UPDATE: Patient with discharge order to home today. Has private transportation arranged. Prescription medications sent to [facility] for pick-up. Please reach out with any additional questions/ concerns regarding dispo plan for home. Berenice Mao RN CM [facility] Department (Available via [employer] Chat) * Carrillo Bonilla MD PhD - 03/21/2023 0836 EDT Surgery Progress Note Service Date: 03/21/2023 Admit Date: 03/18/2023 6:35 POD: 1 (03/18/2023) Procedure: Perineal Proctectomy Chief Complaint: Ulcerative colitis 24 Hour Events: ?? Return to [place] Surgery service after SICU admit Subjective/Objective Subjective Doing well this morning, no acute complaints. Slept well overnight. Denies n/v. No further episodesof hemoptysis or SOB after return to [facility] service from SICU. Comfortable and resting in bed, is looking forward to possible discharge in the next couple days. Objective Vital Signs Temp: [35.9 ??C (96.6 ??F)-36.8 ??C (98.3 ??F)] , Heart Rate: [80 BPM-121 BPM] , Pulse: [79] , Pulse From Oximetry: [54 BPM-120 BPM] , Resp: [8-26] , BP: (111-182)/(78-159) , SpO2: [93 %-98 %] Physical Exam General Appearance: alert, cooperative, no distress Lung: clear to auscultation bilaterally Heart: regular rate and rhythm Abdomen: Soft, nondistended, non-tender to palpation, ostomy bag in place without leakage, small thin output, drain with minimal sanguinous output Extremities: Warm and well perfused, no LE edema Skin: Skin color, temperature, turgor normal. No rashes or lesions Incision(s)/Wound(s): clean, dry, intact Is PICC or Central line present? No, PICC/Central line not present. Assessment/Plan Assessment 53 y.o. 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 Initially had higher drain output, but this has stabilized and now appropriate volume. Patient is recovering well on the floor. Maintain pope 2/2 urinary retention on POD 1. Pt with episode of hemoptysis on accompanied by HTN, tachycardia on 03/20 - workup showed elevated lactate which was trended to normal, workup for acute coronary syndrome and CT PE negative. Will continue to monitor today. Plan Principal Problem: Ulcerative colitis, chronic, other complication (HCC-CMS) - Regular diet - Maintain pope - Continue home advair - Lactate trended to clear - EKG non-ischemic, CT PE negative - 2-4 mg of dilaudid q4h prn, tylenol - Monitor drain output - Lovenox 40 mg qhs VTE ppx VTE Prophylaxis Pharmacologic Prophylaxis: Enoxaparin (Lovenox) 40 mg SQ daily and Seqential Compression Device Discharge Plan Plan for possible discharge today Ramo LARA 03/21/2023 8:36 #[id number] CARRILLO BONILLA MD PhD 03/21/2023 8:53 * Mahad James MD - 03/20/2023 1650 EDT Surgery Progress Note Service Date: 03/20/2023 Admit Date: 03/18/2023 6:35 POD: 1 (03/18/2023) Procedure: Perineal Proctectomy Chief Complaint: Ulcerative colitis 24 Hour Events: ?? Drain output 135ml (decreased from 425 mL) ?? Episode of hemoptysis, SICU admit, return to [place] service Subjective/Objective Subjective Doing well this morning, no acute complaints. Slept well overnight. Denies n/v, cp/sob. See separate note from today for update regarding episode leading to brief SICU admission. Objective Vital Signs Temp: [35.9 ??C (96.6 ??F)-37.9 ??C (100.2 ??F)] , Heart Rate: [80 BPM-133 BPM] , Pulse: [82-91] , Pulse From Oximetry: [54 BPM-120 BPM] , Resp: [8-30] , BP: (111-182)/(78-159) , SpO2: [93 %-99 %] Physical Exam General Appearance: alert, cooperative, no distress Lung: clear to auscultation bilaterally Heart: regular rate and rhythm Abdomen: Soft, nondistended, non-tender to palpation, ostomy bag in place without leakage, small thin output, drain with minimal sanguinous output Extremities: Warm and well perfused, no LE edema Skin: Skin color, temperature, turgor normal. No rashes or lesions Incision(s)/Wound(s): clean, dry, intact Is PICC or Central line present? No, PICC/Central line not present. Assessment/Plan Assessment 53 y.o. 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 Initially had higher drain output, but this has stabilized overnight and now appropriate volume. Patient is recoveringwell on the floor. Maintain pope 2/2 urinary retention on POD 1. Pt with episode of hemoptysis accompanied by HTN, tachycardia - workup showed elevated lactate which was trended to normal, workup for acute coronary syndrome and CT PE negative. Will continue to monitor overnight. Plan Principal Problem: Ulcerative colitis, chronic, other complication (HCC-CMS) - Regular diet - Maintain pope - Continue home advair - Lactate trended to clear - EKG non-ischemic, CT PE negative - 2-4 mg of dilaudid q4h prn, tylenol - Monitor drain output - Lovenox 40 mg qhs VTE ppx VTE Prophylaxis Pharmacologic Prophylaxis: Enoxaparin (Lovenox) 40 mg SQ daily and Seqential Compression Device Discharge Plan Pending clinical disposition MAHAD JAMES MD 03/20/2023 16:50 #[id number] * Connie Kline RN - 03/20/2023 1103 EDT Rapid Response Team Nursing Note (SBAR) Team Times: Call Type: PROGRAM DEVELOPER Call Time: 0800 Call Date: 03/20/23 Call Originator: Nurse RON Arrival at Bedside: 0804 Team Completion Time: 0850 RON Completion Time: 0850 Code Status: Full Initial Vitals: BP: 111/78 Heart Rate: 94 BPM Resp: 13 SpO2: 98 % Skin Color: Appropriate, even tone Temp: 35.9 ??C (96.6 ??F) Temp src: Axillary Neurological Assessment: Pupils: Pupils equal, round, reactive * Left Pupil Size (mm): 2 * Right Pupil Size (mm): 2 Altered Mental Status: No Cardiovascular Assessment: Chest Pain: Yes Chest Pain Location: Right (Numbness R hand) Chest Pain Description: Stabbing Cardiac Rhythm: Sinus EKG Status: Yes Respiratory Assessment: O2 Device: Nasal cannula O2 Flow Rate (L/min): 2 l/min Breath Sounds Bilateral: Clear GI/ Assessment: Emesis: No Signs of GI bleed: No Abdomen: Soft Urinary Status: Pope;Draining Patient Status: Disposition: Transferred Transferred to: SICU Testing: CT Scan Team Members: RON (Name): Connie ANC (Name): Jem Respiratory (Name): Lexie Patient Support (Name): present Other Members (Name): Sanjuanitaedgard Luis Call debriefed with: Nurse;Charge Nurse;Doctor Additional Detail: Rapid Response called on [address] for tachycardia and chest pain. On arrival, patient found to be inSinus Tach to 120s, profoundly SOB with RR around 30 and blood in noted in airway, oxygen saturations 97% on 2L, diaphoretic, hypertensive, and with marked right chest wall pain. EKG performed, IV placed, labs sent. SL Nitro 0.4 mg given x2 with immediate relief in chest pain and shortness of breath. Patient coughing up bloody sputum, TXA neb ordered. Taken to CT PE and then transferred to SICU for continued care. * Lexie Kothari, RT - 03/20/2023 0912 EDT Respiratory Rapid Response Call Note The patient's respiratory status has been evaluated during this Rapid Response call. Patient found to be on an Oxymizer at 10 l/m, but was breathing RA 96% prior to the event. Lung sounds at the timeof CAT call were congested (patient states he feels girggly in his lungs). Patient had a productivecough of chandni red blood in the back of his throat, with intense pain coming from his right ribs. Nitro x 2 given and helped with pain and decreased RR from 30's down to 20's. Moved to CT for PE protocol and ended up in SICU where he received a TXA nebulizer tx to help with any hemoptysis. He yves that well and weaned to 5 l/m NC with sp02 96% and clear lungs bilaterally to auscultation Heart Rate: (!) 116 BPM, RR: 24 SpO2: 94 %, O2 requirements 5 l/m now. A VBG was obtained at 08:15 VBG 7.55/28/30/25/+3/69% with Na - 137, K- 4, iCa - 1.18, Glu - 99, Hct - 42 LEXIE KOTHARI, 03/20/23 * Alondra Cardoza MD - 03/20/2023 0804 EDT Rapid Response Team - Physician Note Rapid Response Team called to the bedside at approximately 8:00AM on 03/20/2023 for chest pain and tachycardia. Subjective: 53 y.o. male with history of ulcerative colitis s/p total abdominal colectomy and ileostomy now POD#2 s/p perineal proctectomy. On arrival of rapid response team, patient was found laying in bed tachypneic with oxymizer in place. He reports his symptoms started with SOB. He then developed right-sided chest pain which started shortly after SOB. On evaluation he was found to be tachycardic, tachypneic and hypertensive. Blood noted in the oral cavity concerning for hemoptysis. Objective: BP (!) 130/95 (BP Cuff Location: Left arm, BP Patient Position: Semi fowlers) Pulse 82 Temp 36.7 ??C (98 ??F) (Oral) Resp 16 Ht 172.7 cm (68) Wt 79.3 kg (174 lb 13.2 oz) SpO2 97% BMI 26.58 kg/m?? Tachycardic to the 170s on arrival, with HR down to 130. General: Acute distress with oxymizer in place HEENT: Blood noted in oral cavity Cardiovascular: Tachycardic Abdomen: Non-distended Neuro: alert and oriented Data Reviewed: Reviewed hospital course. Reviewed labs from today and/or hospital course which are notable for POD#2 from perineal proctectomy with stable hemoglobin. Reviewed imaging from this admission which wasnotable for cystogram with no acute pathology. Assessment: Danya Argueta is 53 y.o. male with history notable for ulcerative colitis s/p total abdominal colectomy and ileostomy now POD#2 s/p perineal proctectomy who developed shortness of breath and chest pain prompting initiation of the Rapid Response Team. Upon arrival, Danya Argueta was found to be in acute distress with tachypnea and sinus tachycardia noted on EKG, however. No ischemic changes on EKG. Some pain improvement noted following nitroglycerin. Limited bedside POCUS with no acute pathology. At this time findings concerning for ACS versus pulmonary embolus. Plan: - Nitroglycerin 0.5 mg - CXR - Electrolytes, troponin, VBG - TXA neb orderd - CT PE STAT Reviewed and confirmed Code Status is Full Disposition: to CT scan and likely back to [place] [address] Family updated by surgical BOX MACHINE OPERATOR via phone. Rosa Funez DO Internal Medicine PGY-1 03/20/23 8:37 I participated in the direct delivery of medical care for this patient, whose critical illness impairs one or more vital organ systems, specifically acute hypoxemia, malignant hypertension and sinus tachycardia, such that there is a high probability of imminent or life-threatening deterioration in the patient's condition. Patient transferred to SICU following CT, which was negative for PE or any other acute finding. At this point, my best guess is that his hemoptysis is not actually connected to his pain/hypertension/tachycardia/tachypnea. Possibly he has an airway injury from intubation 2 days ago which opened up because of coughing/respiratory distress. His response to nitro brings malignant hypertension to the forefront of the differential, as ACS is very unlikely with his ECG, hypoxia, negative trop, and sharp right lateral chest pain. Total time spent I spend in the delivery of critical care for the date of service was: 50 minutes, including time at the bedside, in the CT scanning suite, speaking to the attending radiologist, the surgical primary team, and the consulting SICU team. Alondra Cardoza MD 03/20/2023 15:43 * Sanjuanita Luis, BOX MACHINE OPERATOR - 03/20/2023 0745 EDT BRIEF SURGICAL UPDATE: Called to bedside to evaluate patient for sudden onset SOB and right sided chest pain. Patient requesting his home inhalers. He denies abdominal pain, dizziness, lightheadedness, weakness. Upon arrival patient found to be tearful and anxious with labored breathing, satting 96% on room air. His HR was 88. His lung john were clear anteriorly and posteriorly. He had reproducible right lateral chest wall pain. His abdomen was nontender throughout. His drain was serosanguinous. Low suspicion for ACS however will evaluate. Reassuring that chest pain is reproducible. No acute oxygen desaturation. HDS. Could consider PE given history of IBD and recent pelvic dissection. EKG + Troponin ordered. Home inhalers ordered. Nursing will place patient on oxygen for comfort only. Will monitor. Electronically signed by Sanjuanita Luis NP * Ailyn Joe - 03/19/2023 1034 EDT Initial Case Management/Social Work Assessment and Discharge Plan/Readmission Risk Assessment REASON FOR ADMISSION: Ulcerative colitis, chronic, other complication ([facility]) Patient understands reason for admission: Yes PATIENT INFO VERIFIED: PCP, Contact Info, Address Discharge Delay Risk Assessment 1. Disease/Medical Condition: Diseases or conditions that result in ADL decline or continuous medical treatment Major Barrier day total 1-6: 1 Minor or major discharge risk delay(s) present?: No discharge barriers identified Does the patient meet criteria to be escalated?: No LIVING ARRANGEMENTS AND ACCESSIBILITY ISSUES: Living Arrangements: Private residence, Spouse / significant other Levels: 1 Stairs to enter: 2 Handicap access: Railings into home Bathroom located on bedroom level?: Yes What in home social supports are available to the patient? Family member(s), Spouse / significant other Is 24/7 care available? Yes ADVANCED DIRECTIVES, POA &/or COLST IN PLACE: Healthcare Directive: No, patient does not have advance directive for healthcare treatment Information on Healthcare Directives Requested: No DIRECTIVES FOR FINANCES: TRANSPORTATION: Transportation: Family Does the patient need discharge transport arranged?: No Expected Discharge on IV Antibiotics: No Transportation Additional Details: will provide ride home Final Discharge Destination: home with family Patient expects to be discharged to: home CULTURAL, SPIRITISM and/or LANGUAGE factors affecting health care/discharge planning: Spiritual/Cultural Requests: Completed Insurance Information: Medical Insurance: Yes Type of insurance: Medicare Medicare type: C ([employer] Medicare Advantage Plan) Referred to patient financial services: No Nutrition: DISCHARGE RISK ASSESSMENT: None of the above risks identified Total # selected above: Score: Zero Tentative plan to address the risk of re-hospitalization for those at HIGH MODERATE RISK: RAPT TOOL: Age: 50-65 Gender: Male Ambulation distance: 2 or more blocks (600ft) Gait device: None Community Services: Home health, MOW, SASH-none of one time a week Will you live with someone who will care for you?: Yes RAPT Tool Score: 12 Patient expects to be discharged to: home SBIRT: SASQ (Single Alcohol Screening Question) How many times in the past year have you had 5 or more drinks in a single day?: Never How many times in the past year have you used an illegal drug or used a prescription medication fornon-medical reasons?: Never Intervention in place/initiated?: No, not indicated FUNCTIONAL STATUS: Activities patient requires assistance: None Assistive Devices: Oxygen COMMUNITY RESOURCES/SUPPORTS: Primary Care Provider: Lisa Mayorga PCP Verified: Specialists: Other Type of Home Health Services: None DME Provider: Pharmacy: [facility] [address] [place] [id number] Home Health: Other: POST HOSPITAL TRANSITION PLAN: CM completed assessment with pt. Pt is an AOx3 pleasant male. Pt lives in a single level home with his . Pt is fully independent with all ADL's- he is hopeful todc home. Requested meds to be sent to [facility] pharmacy and will provide ride home at ut. No CM needs at the time of this assessment. Kendra Joe LMSW Truck Packer II Epic chat only AILYN JOE 03/19/2023 10:34 * Charito Francisco MD - 03/19/2023 0740 EDT Surgery Progress Note Service Date: 03/19/2023 Admit Date: 03/18/2023 6:35 POD: 1 (03/18/2023) Procedure: Perineal Proctectomy Chief Complaint: Ulcerative colitis 24 Hour Events: ?? To OR for above ?? Drain output 425ml Subjective/Objective Subjective Doing well this morning, no acute complaints. Some mild abdominal cramping, pain well controlled. Denies n/v, f/c. Objective Vital Signs Temp: [36 ??C (96.8 ??F)-37.1 ??C (98.8 ??F)] , Heart Rate: [71 BPM-100 BPM] , Pulse: [95] , Pulse From Oximetry: [71 BPM-100 BPM] , Resp: [9-17] , BP: (110-149)/(69-101) , SpO2: [95 %-100 %] Physical Exam General Appearance: alert, cooperative, no distress Lung: clear to auscultation bilaterally Heart: regular rate and rhythm Abdomen: Soft, nondistended, non-tender to palpation, ostomy bag in place without leakage, small thin output, drain with minimal sanguinous output Extremities: Warm and well perfused, no LE edema Skin: Skin color, temperature, turgor normal. No rashes or lesions Incision(s)/Wound(s): clean, dry, intact Is PICC or Central line present? No, PICC/Central line not present. Assessment/Plan Assessment 53 y.o. 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 Initially had higher drain output, but this has stabilized overnight and now appropriate volume. Patient is recoveringwell on the floor. Will have cystogram study prior to Pope removal given proximity of resection to bladder. Advance diet today. Plan Principal Problem: Ulcerative colitis, chronic, other complication (HCC-CMS) - Advance to regular diet - Cystogram, if normal, remove Pope today - Saline lock - 2-4 mg of dilaudid q4h prn, tylenol - Monitor drain output VTE Prophylaxis Pharmacologic Prophylaxis: Enoxaparin (Lovenox) 40 mg SQ daily and Seqential Compression Device Discharge Plan Pending clinical disposition Jessica Caruso MS4 03/19/23 7:48 Attestation: I was present with the medical student for the history, exam, and medical decision making documented. I have personally performed my own physical exam and medical decision making. I haveverified and agree with (or, as indicated, have edited) the medical student's documentation. CHARITO FRANCISCO MD 03/19/2023 8:22 #[id number] * Mahad James MD - 03/18/2023 1732 EDT POST-OP CHECK PROCEDURE: Perineal Proctectomy SUBJECTIVE: Pt seen and examined upon arrival to the floor. Pt says his pain is at a 6 or a 7 which is improved from PACU. Denies any nausea, vomiting, CP, SOB at this time. Pt says to call him by his first name. OBJECTIVE: VS: Blood pressure 118/69, temperature 36.5 ??C (97.7 ??F), temperature source Oral, resp. rate 14,height 172.7 cm (68), weight 79.3 kg (174 lb 13.2 oz), SpO2 98 %. Gen: NAD, AOx3 Pulm: CTAB CV: RRR Abd: Soft, non-tender, non-distended Ext: WWP Incision/Dressing: dressing in place with JOHAN drain emergin from site with serosanguineous output ASSESSMENT/PLAN: 53 y.o. male POD#0 s/p perineal proctectomy with appropriate early course of his postoperative recovery - 2-4 mg of dilaudid q4h prn, 0.2-0.4 mg IV dilaudid q4h prn - Sips of clear overnight - mIVF w/ plasmalyte @ 75 mL/hr - 19Fr JOHAN drain in place, monitor and record output closely - maintain pope, cystogram in AM prior to removal MAHAD JAMES MD documented in this encounter H&P Notes * Charito Francisco MD - 03/18/2023 0824 EDT Day of Surgery H&P Date of Service: 03/18/2023 Reason for surgery: UC/Perineal proctectomy HPI: Patient reports no major changes in health since most recently seen in clinic, including no new allergies, no new medications, and no hospitalizations. ?? Paraphrased from most recent clinic visit with Dr. 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 The patient does quite well with his ileostomy.?? He did have resiting of his ileostomy due to a hernia and he now has a recurrent hernia, but it is not a problem.?? 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 PMH PSH No past medical history on file. No past surgical history on file. Social History Family history Social History Tobacco Use ??? Smoking status: Never Passive exposure: Never ??? Smokeless tobacco: Never Substance Use Topics ??? Alcohol use: Not on file No family history on file. Medications Medications Prior to Admission Medication Sig Dispense Refill Last Dose ??? ADVAIR DISKUS 250-50 mcg/dose diskus inhaler 03/18/2023 at 0400 ??? hydrocortisone (ANUSOL-HC) 2.5 % rectal cream Place 1 Application rectally 2 times daily. 28 g 2 Past Month ??? niacin (NICOTINIC ACID) 100 mg tablet Take 1 Tablet by mouth 2 times daily. 03/18/2023 Allergies Allergies Allergen Reactions ??? Nsaids (Non-Steroidal Anti-Inflammatory Drug) Anaphylaxis Review of Systems: A ten point review of systems was performed, all pertinent positives and negatives are either abovein the HPI or listed below. Objective/Physical Exam: VS: Blood pressure (!) 132/97, temperature 36.7 ??C (98.1 ??F), temperature source Temporal, resp. rate 12, height 172.7 cm (68), weight 79.3 kg (174 lb 13.2 oz), SpO2 96 %. Exam: General Appearance: alert, cooperative Lung: clear to auscultation bilaterally, non labored breathing Heart: regular rate and rhythm, S1, S2 normal, no murmur, click, rub or gallop Abdomen: soft, non-tender, non-distended, well healed midline incision, ostomy intact with stool inbag Extremities: all extremities warm and well perfused Skin: Skin color, temperature, turgor normal. 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 Plan: To the OR today for perineal proctectomy Preop orders placed Consent in chart CHARITO FRANCISCO MD 03/18/2023 8:25 #[id number] documented in this encounter Consult Notes * Cam Rob - 03/20/2023 1018 EDT SICU Admit Note Admit Date: 03/18/2023 Primary team: Colorectal Surgery CC: Dyspnea, chest pain Procedures: 03/18/23: Perineal proctectomy (removal of the rectum, distal sigmoid, and anus) HPI: Danya Argueta is a 53 y.o. male with history s/f ulcerative colitis c/b toxic megacolon and s/p total abdominal colectomy and ileostomy many years ago admitted for planned perineal prostatectomyfor symptomatic rectal stump. He is now POD#2 s/p perineal prostatectomy. Initially in the post op period he had some increased drain output which stabilized by POD1. A rapid response was called on POD2 for acute shortness of breath, chest pain, and bloody sputum concerning for hemoptysis associated with tachypnea, tachycardia, and hypertension (182/159). EKG demonstrated sinus tach at 140 bpm, no ischemic changes. POCUS with no acute pathology. Labs notable for lactic acid 2.2, stable hemoglobin, negative trop and NT pro BNP, respiratory alkalosis on VBG. He received nitroglycerin with some relief, inhaled TXA with no further bloody sputum and toleration of 5LPM O2 via NC from previous oxymizer, as well as a CTA chest with no obvious PE. He arrived to the SICU on 10 LPM O2 via oxymizer and on no sedation or drips. Past Medical History: Diagnosis Date ??? A-fib ([facility] ablation x2 ??? Ileostomy in place ([facility]) 2020 ??? 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 The patient does quite well with his ileostomy. He did have resiting of his ileostomy due to ahernia and he now has a recurrent hernia, but it is not a problem. History reviewed. No pertinent surgical history. Allergies Allergen Reactions ??? Nsaids (Non-Steroidal Anti-Inflammatory Drug) Anaphylaxis History reviewed. No pertinent family history. Social History Tobacco Use ??? Smoking status: Never Passive exposure: Never ??? Smokeless tobacco: Never Subjective: Having pain in R lower lateral rib. Feels like a belt around his chest. Feels like he can't quite catch his breath like he is running. No other complaints. Objective: Vital Signs: BP: (111-182)/(78-159) Heart Rate: [94 BPM-133 BPM] Temp: [35.9 ??C (96.6 ??F)-37.9 ??C (100.2 ??F)] Resp: [11-30] SpO2: [93 %-99 %] I/O: Current Shift: No intake/output data recorded. 24 hrs: 03/19 0700 - 03/20 0659 In: 2392.5 [P.O.:2030; I.V.:362.5] Out: 3935 [Urine:3275; Drains:135] Tubes: Pope and other: perineal drain Lines: PIV(s) x3 Infusions/Rates: none Physical Exam: Gen: laying in bed, appears uncomfortable but in NAD Resp: clear, no effusions on POCUS bilaterally CV: tachycardic regular, no effusions and globally normal function via POCUS Abd: soft, non-distended, ileostomy w stool in bag : pope in place draining clear yellow urine Ext: wwp Neuro: alert and oriented to conversaion Skin/Wound: normal temp, color. No rashes/lesions noted. Imaging: CT ANGIO CHEST PE PROTOCOL Result Date: 03/20/2023 No evidence of pulmonary emboli or other significant abnormality [id number] FL CYSTOGRAM Result Date: 03/19/2023 No evidence of leak or fistula [id number] Labs: CBC: Recent Labs 03/18/23 0834 03/19/23 1130 03/20/23 0820 WBC 5.02 9.67 10.70* RBC 4.53 4.22* 5.00 HGB 13.2* 12.4* 14.3 HCT 37.4* 34.4* 40.4 MCV 83 82 81 MCH 29.1 29.4 28.6 MCHC 35.3 36.0 35.4 PLT 232 224 292 NEUTROABS -- -- 6.58 BMP: Recent Labs 03/20/23 0700 03/20/23 0743 03/20/23 0818 NA -- 138 137 K -- 4.1 4.2 CL -- 104 103 CO2 -- BUN -- 12 13 CREATININE 0.82 0.79 0.80 CALCIUM -- 8.9 9.3 CAION -- -- 1.08* MG -- -- 2.1 LABALBU -- -- 4.3 ABG: No results for input(s): PHISTAT, PCOISTAT, POISTAT, POCTCO2, L6RCHZKI, POCFIO2 in the last 72 hours.Coags: No results for input(s): PROTIME, INR, PTT in the last 72 hours. Assessment: Danya Argueta is a 53 y.o. male with history s/f ulcerative colitis c/b toxic megacolon and s/p total abdominal colectomy and ileostomy many years ago admitted for planned perineal prostatectomy for symptomatic rectal stump. He is now POD#2 s/p perineal prostatectomy. Currently being worked up for hypertensive episode associated with chest pain, hemoptysis, and shortness of breath concerning for ACS vs flash pulmonary edema vs other etiology. Will evaluate for surgical complication with abdominal imaging Plan: Neuro: ??? Pain: continue multimodal as written by primary CV: ??? Cardiac monitoring via cuff ? ? Goal MAP>65 ??? Formal TTE ??? Follow up lactate Pulm: ??? Wean oxygen as able ??? Aggressive IS and pulmonary toilet ??? Monitor with blood gases as needed ??? duonebs prn in place of TOP PRINTING PRESS OPERATOR advair ??? Inhaled TXA and suctioning prn for hemoptysis FEN/GI: ??? Diet: Regular ??? Check lytes daily and as replete as needed ??? Monitor perineal drain output ??? CT abd/pelvis Renal: ??? Trend BUN/Cr, watch UOP ??? Keep Pope Heme: ??? Check CBCs daily ??? Lovenox 40 mg subcutaneous at bedtime for chemoppx ID: ??? Trend WBC and fever curve Endo: ??? POC glucose checks ACHS w SSI MSK: ??? Activity as tolerated ??? Engage PT when able Skin: ??? Pressure ulcer prevention per SICU bundle including monitoring for device- related injuries ??? Wound care per primary team (colorectal) ??? No skin concerns from nursing at this time Tubes/Lines: ??? Keep all tubes and lines Ppx: ??? SCDs ??? Lovenox 40 mg subcutaneous at bedtime chemoppx Code status: full, discussed during rapid response 03/20/23 CAM ROB 03/20/2023 11:59 SICU Housestaff [phone] (Service Pager) Associated attestation - Ewa Up DO - 03/20/2023 4536 EDT Attending attestation statement: I saw and examined the patient with the resident and agree with the findings and plans as documented. 53 yo male with PMH ulcerative colitis c/b toxic megacolon s/p prior total abdominal colectomy withileostomy. Patient now POD#2 s/p planned perineal proctectomy. Today rapid response called on the floor for acute SOB, chest pain, and bloody sputum concerning for hemoptysis. During event patient was acutely hypertensive and tachycardic. Taken for stat CT PE study which was negative and admitted for to SICU for monitoring. Additionally had received TXA nebs and nitroglycerine prior to arrival. Upon arrival was tachycardic with resolving hypertension, satingwell on NC. Bedside POCUS showed preserved function with no obvious rwma's and no evidence of pericadial effusion. Lung's without significant pleural effusion, interstitial edema, or pneumothorax. ECG without obvious ST, or T wave changes. Will send for CT abdomen to r/o any acute intra-abdominal pathology. Otherwise exam and labs unremarkable, currently hemodynamically stable. Suspect possible pain mediated sympathetic surge leading to acute hypertensive emergency that has since resolved. No additional hemoptysis since arrival to SICU. Will continue to monitor, f/u on additional pending labs and CT abdomen. Principal Problem: Ulcerative colitis, chronic, other complication Hypertensive emergency Critical Care time was provided in the form of interventions to treat and prevent further life threatening deterioration of the patient???s condition. My bedside involvement was required to monitor and direct the critical care that has been provided.Exclusive of procedures, my critical care time is 45 minutes. EWA UP DO 03/20/2023 documented in this encounter OR Notes * OR Surgeon - Howard Flores MD - 03/18/2023 0000 EDT OPERATIVE REPORT SERVICE DATE: 03/18/2023 PREOPERATIVE DIAGNOSES: Retained rectal stump with a history of ulcerative colitis. POSTOPERATIVE DIAGNOSES: Retained rectal stump with a history of ulcerative colitis. PROCEDURE: Perineal proctectomy (removal of the rectum, distal sigmoid, and anus). SURGEON: Howard Flores MD, FACS ASSISTANT SOFTBALL COACH: Charito Francisco MD ANESTHESIA: General endotracheal. ESTIMATED BLOOD LOSS: 50 mL FLUID REPLACEMENT: 1.5 L COMPLICATIONS: None. DRAINS: Pedro drain in the pelvis out through a right-sided buttock exit site. INDICATIONS: The patient is a gentleman with colitis with a total abdominal colectomy and ileostomymany years ago. Wished to have his rectal stump removed because it was symptomatic and because of the concern for cancer. FINDINGS: 1. A 21 cm rectosigmoid stump. 2. No bleeding at completion of the procedure. 3. Pedro drain in the extraperitoneal space coming out through a right buttock stab wound. 4. No bleeding at completion of the procedure. NARRATIVE: After satisfactory general endotracheal anesthesia, the patient was placed prone with a Pope in. Anus was sewn shut. The patient was prepped and draped in standard fashion. The buttocks were taped apart. Local anesthetic was infiltrated into the region and dissection began in the intersphincteric planeand extended up in between the internal and external sphincter to above the levators. The external rectal space was then entered and dissected circumferentially. Care to avoid any injury to surrounding structures. The Pope was palpated as was the prostate. It was spared from operative trauma. The dissection continued up well above the coccyx to very close to the sacral promontory. The rectal stump was significantly longer than expected and we dissected very carefully and pulled the rectum downand used electrocautery and suture ligature for hemostasis. The specimen was removed in its entirety. The space was inspected. There was no entry into the peritoneal cavity. There appeared to be 2 loops of small bowel which were just on the other side of the peritoneum in the anterior aspect of thecavity, but there was no trauma to the small bowel. The area was irrigated. There was no bleeding. A drain was placed in the site and brought out through right buttock stab wound and sewn in place. The area was irrigated and confirmed no bleeding. The levators were closed in 2 separate layers with 0 Vicryl. Skin was closed with running 3-0 Vicryl. The area was inspected. Needle and sponge counts were correct. Unless otherwise noted, there were no complications, no blood loss, no cultures obtained, no specimens removed, and no drains retained. Howard Flores MD, FACS / AM Confirmation: [id number] Dictation ID: [id number] cc: Lisa Mayorga MD, [facility], [address] [place] [address], [address] [address] Charito Francisco MD, [facility], [address] [place] [address] documented in this encounter Miscellaneous Notes * Plan of Care - Jovani Barrios RN - 03/21/2023 0946 EDT Nursing Discharge Note D: Patient noted with discharge orders to: home. A: Prescriptions provided to patient. Reviewed discharge instructions and prescriptions with Patient IV d/c'd. Belongings collected and sent home with patient. R: Patient verbalized understanding of discharge instructions and denied further questions. Taught leg bag and pope care as ordered. Emptying johan and recording output. All discharge instructions reviewed. JOVANI BARRIOS RN 03/21/2023 9:47 * Plan of Care - Paul Benedict RN - 03/20/2023 1531 EDT Problem: Daily Care Plan Goals Goal: Care Plan Documentation Outcome: Ongoing Flowsheets (Taken 03/20/2023 0700 by Carol Montes RN) Goal This Shift: Pain control Note: Data: pt transfer from [place] [id number] rapid response,see their notes and data. On arrival pt tachycardic, tachynic, c/o right lower chest pain of unknown origin, CT completed just prior to transfer. Action: pt assessed, collaborated with teams in care of pt, monitored for changes, CT done, ECHO done, 12 lead done. Response: pt stabilized during day, now NSR, not tachypneic anymore, see test results, lactic 2.2 and team notified. Now has transfer orders back to floor. PAUL BENEDICT RN 03/20/2023 15:26 1630 patient oob to bathroom independently, emptied own ostomy, walking in halls now. * Plan of Care - Paul Benedict RN - 03/20/2023 1009 EDT FOUR EYES SKIN ASSESSMENT Four Eyes skin assessment was performed on admission to the unit by Paul Benedict RN and Lawrence Grove RN. Patient has the following devices at the time of this assessment: BP cuff, Peripheral IV, O2 sat probe, Pope and ostomy appliance. Device related pressure injury present? No All skin intact verified by: Paul Benedict RN. Last Gilmer Score: 22 Instructions: ??? Add LDA for any identified wounds ??? Add Vansant image for any suspected PI or non surgical wounds ??? Order wound consult if suspected PI identified ? ? If Gilmer is < or = to 16, initiate Pressure Injury Prevention Bundle ([id number]). 03/20/2023 10:11 * Plan of Care - Niya Frank RN - 03/19/2023 2237 EDT Problem: Daily Care Plan Goals Goal: Care Plan Documentation Flowsheets (Taken 03/19/20231922) Area of Focus: Sleep Goal This Shift: pt will have adequate rest this shift Data: Pt ambulating when assumed care @ 1900. A/Ox3 and ambulates independently. Pt has perineal incision, JOHAN to R buttock w serosanguineous output, and pope cath reinserted today d/t urine retention. BP 132/100, temp 37.9 C, MD aware. Action: Medicated per JUL. Clustered care to support rest. Provider contacted about BP/temp and melatonin per pt request. Encouraged PO fluids. Response: Pt restless and c/o inability to sleep. @ 0518 temp was 36.7 C. No orders received. NIYA FRANK RN 03/19/2023 22:37 * Plan of Care - Carol Montes RN - 03/19/2023 1725 EDT Data: Pt. has JOHAN on the right buttock with sanguinous output. Ileostomy in place and pope in placein AM. Advanced to regular diet in AM. Activity as tolerated. Fluoroscopy this morning. Action: Orders received to remove pope per protocol. Pope reinserted due to acute urinary retention. Pt. rated pain 7/10. Administered pain intervention per JUL. Julissa any nausea and vomiting. Monitor intake and output. Response: Relieved after the pope was reinserted. Pt. stated pain is tolerable after administeringPRN medication. Pt. resting in bed comfortably. Hourly rounding CAROL MONTES RN 03/19/2023 17:25 * Plan of Care - Ailyn Joe - 03/19/2023 1016 EDT 03/19/23 1016 Discharge Delay Risk Assessment 1. Disease/Medical Condition 5 Major Barrier day total 1-6 1 Minor or major discharge risk delay(s) present? No discharge barriers identified Does the patient meet criteria to be escalated? No Kendra Joe LMSW Truck Packer II Epic chat only * Plan of Care - Niya Frank RN - 03/18/2023 0417 EDT Problem: Daily Care Plan Goals Goal: Care Plan Documentation Flowsheets (Taken 03/18/2023 1921) Area of Focus: Pain/ Comfort Goal This Shift: pt will have adequate pain control this shift Data: Assumed care @ 1900. Pt POD#1 perineal proctectomy. Pt has ileostomy (TOP PRINTING PRESS OPERATOR), JOHAN to R buttock wbloody output, and perineal incision. Pope in place, mIVF, and on clear liquids. Flatus and scant output from ostomy. Action: Medicated per JUL. Clustered care to support rest. Assisted w ambulation. Response: Pt observed sleeping throughout shift. Pt reports tolerable pain control w tylenol and dilaudid. Pt tolerating clears and ambulation well. NIYA FRANK RN 03/18/2023 6:08 * Plan of Care - Allyssa Ryan RN - 03/18/2023 1550 EDT Problem: Daily Care Plan Goals Goal: Care Plan Documentation Flowsheets (Taken 03/18/2023 1550) Area of Focus: Pain/ Comfort Goal This Shift: pt will have adequate pain relief Data: Pt arrived from PACU around 1500. Pt stated he was having 7/10 pain in his rectum area. Pt jorge 12 L nasal oximizer. Pt given prn pain meds before arrival to unit. JOHAN drain output 35 ml upon arrival, Nolan [facility] aware. Action: IVF running. Clear liquid diet, taking some frequent sips. Pope output normal. Instructed pt on how to use IS. Mepilex foam applied to rectal area, JOHAN drain across right buttock. Response: Pt is resting comfortably in bed, ordered broth for dinner. Continue to monitor JOHAN drainage. FOUR EYES SKIN ASSESSMENT Four Eyes skin assessment was performed on admission to the unit by Allyssa Ryan RN and Rosaline Garcia RN. Patient has the following devices at the time of this assessment: Peripheral IV, O2 sat probe, Pope, SCD sleeves and JOHAN drain, nasal oximizer, ileostomy. Device related pressure injury present? No All skin intact verified by: Allyssa Ryan RN. Last Gilmer Score: 23 Instructions: ??? Add LDA for any identified wounds ??? Add Vansant image for any suspected PI or non surgical wounds ??? Order wound consult if suspected PI identified ? ? If Gilmer is < or = to 16, initiate Pressure Injury Prevention Bundle ([id number]). 03/18/2023 15:56 ALLYSSA RYAN RN 03/18/2023 15:51 * Plan of Care - Cori Wood RN - 03/18/2023 1440 EDT Spoke to b 6 rn , gave report, agreed to helppatients pain by releasing floor order for dilaudid, she agreed with me * Brief Op Note - Charito Francisco MD - 03/18/2023 1135 EDT Date: 03/18/2023 Location: [facility] OR Name: Danya Argueta, : 1970, Diagnosis Pre-Op Diagnosis Codes: * Proctitis [K62.89] Post-op Diagnosis * Proctitis [K62.89] Procedures * Perineal Proctectomy Surgeons * Howard Flores MD - Primary * Charito Francisco MD - Resident - Assisting Procedure Summary Anesthesia: General ASA: II Estimated Blood Loss: 50ml Total IV Fluids: 1700 mL LDAs: Peripheral IV 03/18/23 0806 Posterior;Right Forearm (Active) Peripheral IV 03/18/23 0913 Left Hand (Active) Closed/Suction Drain Right Perineal 19 Frisian (Active) Urethral Catheter Double-lumen;Non-latex;Straight-tip 16 fr (Active) Non-Surgical Airway (Active) Wound 03/18/23 Incision Perianal (Active) Staff: Fabrication And Assembly Supervisor: Johnathon Pitts RN Relief Fabrication And Assembly Supervisor: Fidencio Meadows RN Scrub Person: Mallory Stoner Patient Lens Inserter: Kayla Baca Indications: Juve Argueta is an 53 y.o. male who is having surgery for perineal proctectomy. Findings: Intersphincteric perineal proctectomy performed. Remaining rectum and initial segment of sigmoid colon removed, specimen measured 21cm. Hemostasis achieved. 19 fr pedro placed in pelvic space from right buttocks. Incision closed in layers and mepilex dressing placed. Complications: None; patient tolerated the procedure well. Disposition: PACU - hemodynamically stable. Condition: stable Specimens Collected: Anus, rectum and distal sigmoid sent as specimen. Order Name Source Comment Collection Info Order Time COMPLETE BLOOD COUNT Blood, Venous Collected By: Jojo Bell RN 03/18/2023 8:26 Results Release to Patient (Note: Choosing Manual Release will only block results from tests performed at [facility] and does not apply for Miscellaneous Test Order) Immediate via [employer] Portal Attending Attestation: Dr. Flores was present and scrubbed for the entire procedure. - Postop check at 1600 - mIVF 75ml/hr - No need for further abx - Sips of clears - Cystogram to be performed POD#1 prior to removal of pope - No need for AM labs unless clinically indicated - Monitor drain output - Pain control: Tylenol, Dilaudid PRN CHARITO FRANCISCO MD 03/18/2023 11:41 #[id number] documented in this encounter Plan of Treatment Scheduled Referrals Name Type Priority Associated Diagnoses Order Schedule PROVIDER FOLLOW-UP INSTRUCTIONS Outpatient Referral Routine Ordered: 03/21/2023 PROVIDER FOLLOW-UP INSTRUCTIONS Outpatient Referral Routine Ordered: 03/21/2023 AMB CONS/FOLLOW UP GENERAL SURGERY/COLORECTAL SURGERY Outpatient Referral Routine/Next Available Ulcerative colitis, chronic, other complication (HCC-CMS) Expected: 03/28/2023 (Approximate), Expires: 03/21/2024 documented as of this encounter Procedures Procedure Name Priority Date/Time Associated Diagnosis Comments ECG REPORT - SCANNED 04/03/2023 12:01 EDT ECG REPORT - SCANNED 03/25/2023 12:39 EDT ECG REPORT - SCANNED 03/23/2023 22:09 EDT ECG REPORT - SCANNED 03/22/2023 15:04 EDT COMPLETE BLOOD COUNT Routine 03/21/2023 7:26 EDT BASIC METABOLIC PANEL (BMP) Routine 03/21/2023 7:26 EDT LACTIC ACID Routine 03/20/2023 14:[address] ABDOMEN PELVIS W CONTRAST Routine 03/20/2023 13:58 EDT POCT GLUCOSE, INTERFACED Routine 03/20/2023 13:35 EDT ECG REPORT - SCANNED 03/20/2023 13:16 EDT TRANSTHORACIC ECHO (TTE) COMPLETE Routine 03/20/2023 11:45 EDT PATIENT RE-TYPE STAT 03/20/2023 9:19 EDT EKG 12-LEAD STAT 03/20/2023 9:[address] ANGIO CHEST PE PROTOCOL STAT 03/20/2023 8:38 EDT HOLD BLUE TOP Routine 03/20/2023 8:28 EDT COMPLETE BLOOD COUNT AND DIFFERENTIAL STAT 03/20/2023 8:20 EDT TYPE AND SCREEN STAT 03/20/2023 8:20 EDT EKG 12-LEAD STAT 03/20/2023 8:18 EDT CALCIUM, IONIZED STAT 03/20/2023 8:18 EDT LACTIC ACID STAT 03/20/2023 8:18 EDT MAGNESIUM STAT 03/20/2023 8:18 EDT COMPREHENSIVE METABOLIC PANEL (CMP) STAT 03/20/2023 8:18 EDT POCT BLOOD GAS, CG8 I-STAT Routine 03/20/2023 8:15 EDT EKG 12-LEAD STAT 03/20/2023 8:04 EDT TROPONIN I STAT 03/20/2023 7:43 EDT NT PRO BNP Add-On 03/20/2023 7:43 EDT BASIC METABOLIC PANEL (BMP) STAT Add-on 03/20/2023 7:43 EDT DRY POWDERED OR METERED DOSE INHALER Routine 03/20/2023 7:32 EDT CREATININE Routine 03/20/2023 7:00 EDT COMPLETE BLOOD COUNT Routine 03/19/2023 11:30 EDT FL CYSTOGRAM Routine 03/19/2023 9:49 EDT SURGICAL PATHOLOGY Routine 03/18/2023 10 :59 EDT PROCTECTOMY, PARTIAL, PERINEAL APPROACH, WITHOUT ANASTOMOSIS 03/18/2023 8:49 EDT Proctitis COMPLETE BLOOD COUNT STAT 03/18/2023 8:34 EDT documented in this encounter Results * ECG REPORT - SCANNED (04/03/2023 12:01 EDT) 04/03/2023 12:0 1 EDT Scan 2 [employer] PROCEDURE/MINOR BILLIE GICAL ORDERABLES * ECG REPORT - SCANNED (03/25/2023 12:39 EDT) 03/25/2023 12:3 9 EDT Scan 2 [employer] PROCEDURE/MINOR BILLIE GICAL ORDERABLES * ECG REPORT - SCANNED (03/23/2023 22:09 EDT) 03/23/2023 22:0 9 EDT Scan 2 [employer] PROCEDURE/MINOR BILLIE GICAL ORDERABLES * ECG REPORT - SCANNED (03/22/2023 15:04 EDT) 03/22/2023 15:0 4 EDT Scan 2 [employer] PROCEDURE/MINOR BILLIE GICAL ORDERABLES * (ABNORMAL) BASIC METABOLIC PANEL (BMP) (03/21/2023 7:26 EDT) Sodium 136 136 - 145 mmol/L 03/21/2023 8:45 EDT [facility] Potassium 4.1 3.5 - 5.0 mmol/L 03/21/2023 8:45 T [facility] Chloride 104 96 - 110 mmol/L 03/21/2023 8:45 [facility] CO2 Total 19(L) 22 - 32 mmol/L 03/21/2023 8:45 [facility] Anion Gap 13 5 - 14 mmol/L 03/21/2023 8:45 [facility] Glucose 103(H) 70 - 99 mg/dl 03/21/2023 8:45 [facility] Calcium 8.9 8.5 - 10.5 mg/dL 03/21/2023 8:45 [facility] BUN 15 10 - 26 mg/dL 03/21/2023 8:45 [facility] Creatinine 0.80 0.66 - 1.25 mg/dL 03/21/2023 8:45 [facility] eGFR 105 >60 mL/min/1.73 m2 03/21/2023 8:45 [facility] Blood VENOUS BLOOD / Unknown Venipuncture / Unknown 03/21/2023 7:26 EDT 03/21/2023 7:52 EDT Cam Charity CHEMISTRY & BLOOD GA S ORDERABLES [facility] [address] [place] [address] * (ABNORMAL) COMPLETE BLOOD COUNT (03/21/2023 7:26 EDT) WBC 7.17 4.00 - 10.40 K/cmm 03/21/2023 8:04 T [facility] RBC 4.88 4.36 - 5.78 M/cmm 03/21/2023 8:04 [facility] Hemoglobin 14.0 13.8 - 17.3 g/dL 03/21/2023 8:04 T [facility] HCT 39.8 39.5 - 50.2 % 03/21/2023 8:04 [facility] MCV 82 81 - 95 fL 03/21/2023 8:04 [facility] MCH 28.7 27.6 - 33.0 pg 03/21/2023 8:04 [facility] MCHC 35.2 32.8 - 36.4 g/dL 03/21/2023 8:04 [facility] RDW-CV 12.3 <14.2 % 03/21/2023 8:04 [facility] RDW-SD 36.8 <46.0 fl 03/21/2023 8:04 [facility] PLT 268 141 - 377 K/cmm 03/21/2023 8:04 [facility] MPV 9.0(L) 9.5 - 12.7 fL 03/21/2023 8:04 [facility] Blood VENOUS BLOOD / Unknown Venipuncture / Unknown 03/21/2023 7:26 EDT 03/21/2023 7:53 EDT Cam Rob HEMATOLOGY & PF4 ORD ERABLES [facility] [address] [place] [address] * LACTIC ACID (03/20/2023 14:23 EDT) Lactic Acid 1.1 <=2.0 mmol/L 03/20/2023 14:46 T [facility] Blood VENOUS BLOOD / Unknown Venipuncture / Unknown 03/20/2023 14:23 EDT 03/20/2023 14:30 EDT Cam Rob CHEMISTRY & BLOOD GA S ORDERABLES [facility] [address] [place] [address] * CT ABDOMEN PELVIS W CONTRAST (03/20/2023 13:58 EDT) Anatomical Region Laterality Modality Body, Abdomen, Pelvis, Abdomen and Pelvis Computed Tomography 03/20/2023 14:3 0 EDT Impressions 03/20/2023 14:30 EDT 1. Expected postoperative changes in the abdomen and pelvis, status post proctectomy. No organized collection or unexpected acute inflammatory changes in the abdomen or pelvis. 2. Right abdominal end ileostomy, status post remote total colectomy. 3. Prior bilateral inguinal hernia repair and posterior L5-S1 fusion. [id number] Narrative 03/20/2023 14:[address] ABDOMEN PELVIS W CONTRAST ??03/20/2023 2:00 PM Signs and Symptoms/Comments: post proctectomy, RUQ pain; Abdominal pain, fever, post-op; post proctectomy, RUQ pain; Technique: CT of the abdomen and pelvis was performed following the administration of intravenous contrast. This CT used either dose modulation and/or iterative reconstruction techniques to lower radiation dose. Comparison: August 17, 2022 Findings: Lower chest: Minimal atelectasis. Liver: No suspicious hepatic lesion. Gallbladder: Unremarkable. Bile ducts: Normal caliber. Spleen: No suspicious lesion. Pancreas: No suspicious lesion or ductal dilation. Adrenal glands: No suspicious lesion. Kidneys, ureters, bladder: No suspicious renal lesion. Excreted contrast is present in the collecting system. No hydroureteronephrosis. Urinary bladder is decompressed via Pope catheter. Reproductive organs: Unremarkable for age. Bowel: Status post prior total colectomy and recent proctectomy. Expected postoperative changes in the pelvis. No organized collection. Surgical drain is present in the surgical bed. There is a right abdominal end ileostomy. No bowel obstruction or acute inflammation. Peritoneal cavity: Postoperative fluid in the surgical bed in the pelvis. There is trace intraperitoneal free air. Retroperitoneal air is present on the left as well. Lymph nodes: No lymphadenopathy. Vascular: Scattered aortic atherosclerotic plaque, without aneurysmal dilation. Abdominal wall: No bowel-containing hernia. Right abdominal ileostomy. Postoperative changes of the midline anterior abdominal wall. Prior bilateral inguinal hernia repair. Musculoskeletal: Prior L5-S1 posterior fusion. No suspicious osseous lesion. Multilevel degenerative disc disease, worst at L4-5. Photogrammetric Tech: No additional finding. Procedure Note Abbe Mcdowell MD - 03/20/2023 CT ABDOMEN PELVIS W CONTRAST 03/20/2023 2:00 PM Signs and Symptoms/Comments: post proctectomy, RUQ pain; Abdominal pain,fever, post-op; post proctectomy, RUQ pain; Technique: CT of the abdomen and pelvis was performed following theadministration of intravenous contrast. This CT used either dose modulation and/or iterative reconstructiontechniques to lower radiation dose. Comparison: August 17, 2022 Findings: Lower chest: Minimal atelectasis. Liver: No suspicious hepatic lesion. Gallbladder: Unremarkable. Bile ducts: Normal caliber. Spleen: No suspicious lesion. Pancreas: No suspicious lesion or ductal dilation. Adrenal glands: No suspicious lesion. Kidneys, ureters, bladder: No suspicious renal lesion. Excreted contrastis present in the collecting system. No hydroureteronephrosis. Urinarybladder is decompressed via Pope catheter. Reproductive organs: Unremarkable for age. Bowel: Status post prior total colectomy and recent proctectomy. Expectedpostoperative changes in the pelvis. No organized collection. Surgicaldrain is present in the surgical bed. There is a right abdominal endileostomy. No bowel obstruction or acute inflammation. Peritoneal cavity: Postoperative fluid in the surgical bed in the pelvis.There is trace intraperitoneal free air. Retroperitoneal air is present onthe left as well. Lymph nodes: No lymphadenopathy. Vascular: Scattered aortic atherosclerotic plaque, without aneurysmaldilation. Abdominal wall: No bowel-containing hernia. Right abdominal ileostomy.Postoperative changes of the midline anterior abdominal wall. Priorbilateral inguinal hernia repair. Musculoskeletal: Prior L5-S1 posterior fusion. No suspicious osseouslesion. Multilevel degenerative disc disease, worst at L4-5. Photogrammetric Tech: No additional finding. IMPRESSION 1. Expected postoperative changes in the abdomen and pelvis, status postproctectomy. No organized collection or unexpected acute inflammatorychanges in the abdomen or pelvis. 2. Right abdominal end ileostomy, status post remote total colectomy. 3. Prior bilateral inguinal hernia repair and posterior L5-S1 fusion. [id number] Cam Rob IMG CT ORDERABLES * POCT GLUCOSE, INTERFACED (03/20/2023 13:35 EDT) Pathologist [facility] Glucose, POC 99 70 - 100 mg/dL 03/20/2023 13:36 EDT [facility] HN LAB POC COMMENT (GLUCOSE) Test Performed by Nursing Services 03/20/2023 13:36 EDT [facility] Blood CAPILLARY BLOOD / Unknown 03/20/2023 13:35 EDT 03/20/2023 13:36 EDT Howard Flores MD POINT OF CARE TEST O RDERABLES Performing Organization Address City/State/[facility] Co de Phone Number [facility] [address] [place] [address] * ECG REPORT - SCANNED (03/20/2023 13:16 EDT) 03/20/2023 13:1 6 EDT Scan 2 [employer] PROCEDURE/MINOR BILLIE GICAL ORDERABLES * TRANSTHORACIC ECHO (TTE) COMPLETE W/DOPPLER W/CF NO CONTRAST (03/20/2023 11:45 EDT) LA Atrial Area A4C 10.2 cm2 [facility] POINT OF CARE LV ID, ED, PLAX 4.7 3.5 - 6.0 cm [facility] POINT OF CARE LVIDD BY MMODE 4.7 cm [facility] POINT OF CARE LV ID, ES, PLAX 2.9 2.1 - 4.0 cm [facility] POINT OF CARE LA ID, A-P, ES 3.2 cm [facility] POINT OF CARE LV PW thickness, ED, PLAX 0.8 0.6 - 1.1 cm [facility] POINT OF CARE LV ejection fraction, 1-p A4C 66 % [facility] POIN T OF CARE LVOT mean gradient, S 2 mmHg [facility] POINT OF CARE AV LVOT peak gradient 4 mmHg [facility] POINT OF CARE LV e', lateral 11.10 m/s [facility] POINT OF CARE Mitral deceleration time 225 ms [facility] POINT OF CARE LVOT peak velocity, S 1.0 m/s [facility] POINT OF CARE LVOT VTI, S 17.0 cm [facility] PO INT OF CARE LVOT mean velocity, S 0.7 m/s [facility] POINT OF CARE Mitral E-wave peak velocity 0.5 m/s [facility] POINT OF CARE Mitral A-wave peak velocity 0.6 m/s [facility] POINT OF CARE LV Systolic Volume 20 mL [facility] POINT OF CARE LV Diastolic Volume 102 mL [facility] POINT OF CARE LA Atrial Length A4C 4.4 cm [facility] POINT OF CARE EF 63 % [facility] POIN T OF CARE LA volume/bsa, ES, A4C 10.0 ml/m2 [facility] POINT OF CARE LA volumes, ES, A4C 19.0 ml [facility] POINT OF CARE Interventricular Septum to Posterior Wall Thickness Ratio 1.4 [facility] P OINT OF CARE LV e', medial 6.30 m/s [facility] POINT OF CARE Pulmonic valve mean velocity, S 1 cm/s [facility] POINT OF CARE LA Atrial Area A2C 10.2 cm2 [facility] POINT OF CARE LA/aortic root ratio 1 [facility] POINT OF CARE LV end diastolic volume 1-p A2C 86 ml [facility] POINT OF CARE LV ejection fraction, 1-p A2C 59 % [facility] POIN T OF CARE LV E/e', medial 6.3 [facility] N POINT OF CARE LV end-diastolic volume, 1-p A4C 59 ml [facility] POINT OF CARE Anatomical Region Laterality Modality Ultrasound Narrative 03/20/2023 12:25 EDT ?Left??Ventricle: The left ventricular cavity was normal in size. Left ventricular systolic function was hyperdynamic with an ejection fraction =>65%. Left ventricular wall motion was normal; there were no regional wall motion abnormalities. ?Right??Ventricle: The right ventricular cavity was normal in size. Right ventricular systolic function was normal. Left Ventricle The left ventricular cavity was normal in size. Left ventricular systolic function was hyperdynamic with an ejection fraction =>65%. Left ventricular diastolic function cannot be determined based on the findings of the study. Left ventricular wall thickness was normal. Left ventricular wall motion was normal; there were no regional wall motion abnormalities. Right Ventricle The right ventricular cavity was normal in size. Right ventricular systolic function was normal. Left Atrium The left atrium was normal in size. Right Atrium The right atrium was normal in size. IVC/SVC The inferior vena cava demonstrated a diameter of <=21 mm and collapses >50%; therefore, the right atrial pressure is estimated at 0-5 mmHg. Mitral Valve Mitral valve structure was normal. There was trace mitral regurgitation. There was no significant mitral valve stenosis. Tricuspid Valve The tricuspid valve was not well visualized. There was trace tricuspid valve regurgitation. There was no tricuspid valve stenosis. Aortic Valve The aortic valve was not well visualized, unable to determine leaflet number. There was no aortic valve stenosis. There was trace aortic valve regurgitation. Pulmonic Valve The pulmonic valve was not well visualized. There was no significant pulmonic valve regurgitation. There was no pulmonic valve stenosis. Ascending Aorta The aortic root was normal in size. The ascending aorta was not well-visualized. Pericardium There was no significant pericardial effusion. Pulmonic Artery Unable to assess PA pressure, due to suboptimal tricuspid regurgitation envelope. Study Details Study status: Routine. Transthoracic echocardiography. M-Mode, complete 2D, complete spectral Doppler, and color Doppler.The study was interpreted by [facility]. Pertinent images and digital data are archived for permanent storage and are available for subsequent review. Scanning was performed from the apical, parasternal, subcostal and suprasternal acoustic windows. Overall the study quality was suboptimal. Images were obtained using cardiac ultrasound machine EPIQ #21. Limited windows Cam Rob CARDIAC ECHO ORDERAB LES * PATIENT RE-TYPE (03/20/2023 9:19 EDT) ABO A 03/20/2023 9:52 EDT [facility] Rh Factor Positive 03/20/2023 9:52 [facility] Blood VENOUS BLOOD / Unknown Venipuncture / Unknown 03/20/2023 9:19 EDT 03/20/2023 9:36 EDT Howard Flores MD BLOOD BANK TESTS [facility] [address] [place] [address] * EKG 12-LEAD (03/20/2023 9:14 EDT) 03/20/2023 9:14 EDT Narrative [facility] EKG - 03/22/2023 14:56 EDT ? [facility] ? Test Date: ?2023-03-20 Pat Name: ? DANYA ARGUETA ?Department: ? Room: ? M321 Gender: ? Male ? Labor Gang Supervisor: ?? [id number] : ?1970 ? Requested By: KIM Gould Order Number: [id number] ? Rachael LUU: ?? TRAY HUTCHINS MD ? Measurements Intervals ?[place] ? Rate: ? 102 ?P: ?89 CT: ? 137 ?QRS: ?81 QRSD: ? 79 ? T: ?78 QT: ? 329 ? QTc: ?429 ? Interpretive Statements SINUS TACHYCARDIA POSSIBLE LEFT ATRIAL ENLARGEMENT ABNORMAL RHYTHM ECG Compared to ECG 03/20/2023 08:18:37 Left ventricular hypertrophy no longer present ST (T wave) deviation no longer present I reviewed the tracing and have either agreed or edited the findings in this report. Electronically Signed On 03-22-2023 14:56:33 EDT by TRAY HUTCHINS MD. Procedure Note Tray Hutchins MD - 03/22/2023 [facility] Test Date: 2023-03-20 Pat Name: DANYA ARGUETA Department: Room: M321 Gender: Male Labor Gang Supervisor: [id number] : 1970 Requested By: KIM Gould Order Number: [id number] Reading MD: TRAY OROZCO Measurements Intervals [place] Rate: 102 P: 89 CT: 137 QRS: 81 QRSD: 79 T: 78 QT: 329 QTc: 429 Interpretive Statements SINUS TACHYCARDIA POSSIBLE LEFT ATRIAL ENLARGEMENT ABNORMAL RHYTHM ECG Compared to ECG 03/20/2023 08:18:37 Left ventricular hypertrophy no longer present ST (T wave) deviation no longer present I reviewed the tracing and have either agreed or edited the findings inthis report. Electronically Signed On 03-22-2023 14:56:33 EDT by TRAY HUTCHINS MD. Sanjuanita Luis BOX MACHINE OPERATOR CARDIAC ECG ORDERABL ES [facility] EKG * CT ANGIO CHEST PE PROTOCOL (03/20/2023 8:38 EDT) Anatomical Region Laterality Modality Chest Computed Tomogra phy 03/20/2023 8:57 EDT Impressions 03/20/2023 8:57 EDT No evidence of pulmonary emboli or other significant abnormality [id number] Narrative 03/20/2023 8:[address] ANGIO CHEST PE PROTOCOL ??03/20/2023 8:25 AM Clinical History/Comments: hemoptysis; Pulmonary embolism (PE) suspected, high prob; hemoptysis; Technique: CT angiogram of the chest was performed with the IV administration of contrast material during the pulmonary arterial phase of enhancement. 3D advanced post-processing was performed utilizing a combination of MIP and MPR techniques with physician participation and supervision. This CT used either dose modulation and/or iterative reconstruction techniques to lower radiation dose. Comparison: None Findings: Opacification of the pulmonary vasculature is good. No acute or chronic emboli are seen within the pulmonary arterial vasculature. Lower neck: Normal Mediastinum and nery (non-vascular): No enlarged mediastinal or hilar lymph nodes. ??The esophagus appears normal. Cardiovascular: No significant abnormality Lungs and airways: Peripheral calcification in the posterobasal segment the right lower lobe may reflect previous episode of aspiration. The lungs otherwise clear aside from mild dependent atelectasis. Pleura: Normal Upper abdomen (limited to upper abdomen, not optimized for abdominal imaging): Normal Chest wall soft tissues: Normal Bones: Unremarkable for age Procedure Note Delmer Russell MD - 03/20/2023 CT ANGIO CHEST PE PROTOCOL 03/20/2023 8:25 AM Clinical History/Comments: hemoptysis; Pulmonary embolism (PE) suspected, high prob; hemoptysis; Technique: CT angiogram of the chest was performed with the IV administration ofcontrast material during the pulmonary arterial phase of enhancement. 3Dadvanced post-processing was performed utilizing a combination of MIP andMPR techniques with physician participation and supervision. This CT used either dose modulation and/or iterative reconstructiontechniques to lower radiation dose. Comparison: None Findings: Opacification of the pulmonary vasculature is good. No acute or chronicemboli are seen within the pulmonary arterial vasculature. Lower neck: Normal Mediastinum and nery (non-vascular): No enlarged mediastinal or hilarlymph nodes. The esophagus appears normal. Cardiovascular: No significant abnormality Lungs and airways: Peripheral calcification in the posterobasal segmentthe right lower lobe may reflect previous episode of aspiration. The lungsotherwise clear aside from mild dependent atelectasis. Pleura: Normal Upper abdomen (limited to upper abdomen, not optimized for abdominalimaging): Normal Chest wall soft tissues: Normal Bones: Unremarkable for age IMPRESSION No evidence of pulmonary emboli or other significant abnormality [id number] Sindhu Cabrera NP IMG CT ORDERABLES * HOLD BLUE TOP (03/20/2023 8:28 EDT) Hold Hold 03/20/2023 9:31 EDT [facility] Blood VENOUS BLOOD / Unknown 03/20/2023 8:28 EDT 03/20/2023 8:28 EDT Howard Flores MD LAB INFO SERVICE AND SUPPORT & PHONE RESULT [facility] [address] [place] [id number] * TYPE AND SCREEN (03/20/2023 8:20 EDT) ABO A 03/20/2023 9:50 EDT [facility] Rh Factor Positive 03/20/2023 9:50 EDT [facility] Antibody Screen Negative 03/20/2023 9:50 EDT [facility] Specimen Expires: 03/23/2023 @ 23:59 03/20/2023 9:50 EDT [facility] Blood VENOUS BLOOD / Unknown Venipuncture / Unknown 03/20/2023 8:20 EDT 03/20/2023 8:30 EDT Sindhu Cabrera NP BLOOD BANK TESTS [facility] [address] [facility] [place] [address] * (ABNORMAL) COMPLETE BLOOD COUNT AND DIFFERENTIAL (03/20/2023 8:20 EDT) WBC 10.70(H) 4.00 - 10.40 K/cmm 03/20/2023 8:45 EDT [facility] RBC 5.00 4.36 - 5.78 M/cmm 03/20/2023 8:45 [facility] Hemoglobin 14.3 13.8 - 17.3 g/dL 03/20/2023 8:45 [facility] HCT 40.4 39.5 - 50.2 % 03/20/2023 8:45 [facility] MCV 81 81 - 95 fL 03/20/2023 8:45 [facility] MCH 28.6 27.6 - 33.0 pg 03/20/2023 8:45 [facility] MCHC 35.4 32.8 - 36.4 g/dL 03/20/2023 8:45 [facility] RDW-CV 12.3 <14.2 % 03/20/2023 8:45 [facility] RDW-SD 36.2 <46.0 fl 03/20/2023 8:45 [facility] PLT 292 141 - 377 K/cmm 03/20/2023 8:45 [facility] MPV 9.3(L) 9.5 - 12.7 fL 03/20/2023 8:45 [facility] % Neutrophils 61.5 % 03/20/2023 8:45 [facility] % Lymphocytes 25.4 % 03/20/2023 8:45 [facility] % Monocytes 11.4 % 03/20/2023 8:45 [facility] % Eosinophils 1.0 % 03/20/2023 8:45 [facility] % Basophils 0.3 % 03/20/2023 8:45 [facility] % Immature Grans 0.4 % 03/20/20 8:45 [facility] Absolute Neutrophils 6.58 2.20 - 8.85 K/cmm 03/20/2023 8:45 [facility] Absolute Lymphocytes 2.72 1.09 - 3.30 K/cmm 03/20/2023 8:45 [facility] Absolute Monocytes 1.22(H) 0.10 - 0.80 K/cmm 03/20/2023 8:45 [facility] Absolute Eosinophils 0.11 0.03 - 0.61 K/cmm 03/20/2023 8:45 [facility] ABS Basophils 0.03 0.01 - 0.11 K/cmm 03/20/2023 8:45 [facility] Absolute Immature Grans 0.04 0.00 - 0.06 K/cmm 03/20/2023 8:45 [facility] Type of Differential: Auto 03/20/2023 8:45 T [facility] Blood VENOUS BLOOD / Unknown Venipuncture / Unknown 03/20/2023 8:20 EDT 03/20/2023 8:27 EDT Sindhu Cabrera NP PACKAGES & DNA PROBE ORDERABLES [facility] [address] [place] [address] * EKG 12-LEAD (03/20/2023 8:18 EDT) 03/20/2023 8:18 EDT Narrative [facility] EKG - 03/20/2023 12:51 EDT ? [facility] [facility] ? Test Date: ?2023-03-20 Pat Name: ? DANYA ARGUETA ?Department: ?? [facility] ? Room: ? B685 Gender: ? Male ? Labor Gang Supervisor: ?? [id number] : ?1970 ? Requested By: HIPOLITOA ROSA Order Number: [id number] ? Reading MD: ?? RUSSEL HENNESSY MD PhD ? Measurements Intervals ?[place] ? Rate: ? 131 ?P: ?82 CT: ? 139 ?QRS: ?71 QRSD: ? 86 ? T: ?87 QT: ? 282 ? QTc: ?416 ? Interpretive Statements SINUS TACHYCARDIA LEFT VENTRICULAR HYPERTROPHY AND ST-T CHANGE Compared to ECG 03/20/2023 08:04:22 No significant changes I reviewed the tracing and have either agreed or edited the findings in this report. Electronically Signed On 03-20-2023 12:51:06 EDT by RUSSEL HENNESSY MD PhD. Procedure Note Russel Hennessy MD PhD - 03/20/2023 [facility] Test Date: 2023-03-20 Pat Name: DANYA ARGUETA Department: [place] [address] Room: [facility] Gender: Male Labor Gang Supervisor: [id number] : 1970 Requested By: JOHNNY BHANDARI Order Number: [id number] Rachael MD: RUSSEL HENNESSY [facility] Measurements Intervals [place] Rate: 131 P: 82 CT: 139 QRS: 71 QRSD: 86 T: 87 QT: 282 QTc: 416 Interpretive Statements SINUS TACHYCARDIA LEFT VENTRICULAR HYPERTROPHY AND ST-T CHANGE Compared to ECG 03/20/2023 08:04:22 No significant changes I reviewed the tracing and have either agreed or edited the findings inthis report. Electronically Signed On 03-20-2023 12:51:06 EDT by RACIEL LUU PhD. Rosa Funez DO CARDIAC ECG ORDERA BLES [facility] EKG * MAGNESIUM (03/20/2023 8:18 EDT) Magnesium 2.1 1.7 - 2.8 mg/dL 03/20/2023 8:46 EDT [facility] Blood VENOUS BLOOD / Unknown Venipuncture / Unknown 03/20/2023 8:18 EDT 03/20/2023 8:29 EDT Sindhu Cabrera NP CHEMISTRY & BLOOD GA S ORDERABLES Performing Organization Address [facility] Co de Phone Number [facility] [address] [place] [address] * (ABNORMAL) CALCIUM, IONIZED (03/20/2023 8:18 EDT) Calcium, Ionized 1.08(L) 1.14 - 1.35 mmol/L 03/20/2023 8:46 EDT [facility] Comment: Tube not filled to capacity. Ionized calcium results may be falsely decreased. Interpret results with caution. Blood VENOUS BLOOD / Unknown Venipuncture / Unknown 03/20/2023 8:18 EDT 03/20/2023 8:29 EDT Sindhu Cabrera NP CHEMISTRY & BLOOD GA S ORDERABLES Performing Organization Address [facility] de Phone Number [facility] [address] [place] [address] * (ABNORMAL) COMPREHENSIVE METABOLIC PANEL (CMP) (03/20/2023 8:18 EDT) Sodium 137 136 - 145 mmol/L 03/20/2023 8:46 EDT [facility] Potassium 4.2 3.5 - 5.0 mmol/L 03/20/2023 8:46 EDT [facility] Chloride 103 96 - 110 mmol/L 03/20/2023 8:46 T [facility] CO2 Total 23 22 - 32 mmol/L 03/20/2023 8:46 T [facility] Glucose 104(H) 70 - 99 mg/dl 03/20/2023 8:46 T [facility] BUN 13 10 - 26 mg/dL 03/20/2023 8:46 EDT [facility] Creatinine 0.80 0.66 - 1.25 mg/dL 03/20/2023 8:46 [facility] eGFR 105 >60 mL/min/1.7 3m2 03/20/2023 8:46 [facility] Total Protein 7.8 6.3 - 8.2 g/dL 03/20/2023 8:46 [facility] Albumin 4.3 3.4 - 4.9 g/dL 03/20/2023 8:46 [facility] Alkaline Phosphatase 48 38 - 126 U/L 03/20/2023 8:46 [facility] AST 43 15 - 46 U/L 03/20/2023 8:46 [facility] ALT 21 <50 U/L 03/20/2023 8:46 [facility] Bilirubin, Total 1.4(H) <1.4 mg/dL 03/20/20 8:46 [facility] Calcium 9.3 8.5 - 10.5 mg/dL 03/20/2023 8:46 [facility] Albumin/Globulin Ratio 1.2 1.0 - 2.5 g/dL 03/20/2023 8:46 [facility] Anion Gap 11 5 - 14 mmol/L 03/20/2023 8:46 T [facility] Blood VENOUS BLOOD / Unknown Venipuncture / Unknown 03/20/2023 8:18 EDT 03/20/2023 8:29 EDT Sindhu Cabrera NP CHEMISTRY & BLOOD GA S ORDERABLES [facility] [address] [place] [address] * (ABNORMAL) LACTIC ACID (03/20/2023 8:18 EDT) Lactic Acid 2.2(HH) <=2.0 mmol/L 03/20/2023 8:49 EDT [facility] Blood VENOUS BLOOD / Unknown Venipuncture / Unknown 03/20/2023 8:18 EDT 03/20/2023 8:29 EDT Sindhu Cabrera NP CHEMISTRY & BLOOD GA S ORDERABLES [facility] [address] [place] [address] * (ABNORMAL) POCT BLOOD GAS, CG8 I-STAT (03/20/2023 8:15 EDT) pH, Venous, i-STAT 7.55(H) 7.31 - 7.41 03/20/2023 8:19 [facility] pCO2, Venous, i-STAT 28(L) 41 - 51 mmHg 03/20/2023 8:19 [facility] pO2, Venous, i-STAT 30 30 - 50 mmHg 03/20/2023 8:19 [facility] TCO2, Venous, i-STAT 25 22 - 28 mmol/L 03/20/2023 8:19 [facility] O2 Saturation, Venous, i-STAT 69 60 - 85 % 03/20/2023 8:19 [facility] Sodium, Venous, i-STAT 137 136 - 145 mmol/L 03/20/2023 8:19 [facility] Potassium, Venous, i-STAT 4.0 3.5 - 5 mmol/L 03/20/2023 8:19 [facility] Glucose, Venous, i-STAT 99 70 - 100 mg/dL 03/20/2023 8:19 [facility] Hematocrit, Venous, i-STAT 42 40 - 50 % 03/20/2023 8:19 [facility] Ionized Calcium, Venous, i-STAT 1.18 1.12 - 1.32 mmol/L 03/20/2023 8:19 [facility] Base Excess(+) / Deficit(-), Venous, i-STAT 3 -2 - 3 mmol/L 03/20/2023 8:19 [facility] Blood VENOUS BLOOD / Unknown 03/20/2023 8:15 EDT 03/20/2023 8:19 EDT Narrative [facility] - 03/20/2023 8:19 EDT Test Performed by Respiratory Howard Flores MD POINT OF CARE TEST O RDERABLES [facility] [address] [place] [address] * EKG 12-LEAD (03/20/2023 8:04 EDT) 03/20/2023 8:04 EDT Narrative [facility] EKG - 04/03/2023 11:43 EDT ? [facility] ? Test Date: ?2023-03-20 Pat Name: ? DANYA ARGUETA ?Department: ?? [facility] [address] ? Room: ? B685 Gender: ? Male ? Labor Gang Supervisor: ?? [id number] : ?1970 ? Requested By: KIM Gould Order Number: [id number] ? Rachael LUU: ?? OSCAR GRAHAM MD ? Measurements Intervals ?[place] ? Rate: ? 140 ?P: ?81 CT: ? 134 ?QRS: ?73 QRSD: ? 85 ? T: ?76 QT: ? 280 ? QTc: ?428 ? Interpretive Statements SINUS TACHYCARDIA, POSSIBLE ATRIAL FLUTTER LEFT VENTRICULAR HYPERTROPHY AND ST-T CHANGE I reviewed the tracing and have either agreed or edited the findings in this report. Electronically Signed On 04-03-2023 11:43:40 EDT by OSCAR GRAHAM MD. Procedure Note Oscar Graham MD - 04/03/2023 [facility] Test Date: 2023-03-20 Pat Name: DANYA ARGUETA Department: [facility] Room: [facility] Gender: Male Labor Gang Supervisor: [id number] : 1970 Requested By: KIM Gould Order Number: [id number] Reading MD: OSCAR GRAHAM MD Measurements Intervals [place] Rate: 140 P: 81 CT: 134 QRS: 73 QRSD: 85 T: 76 QT: 280 QTc: 428 Interpretive Statements SINUS TACHYCARDIA, POSSIBLE ATRIAL FLUTTER LEFT VENTRICULAR HYPERTROPHY AND ST-T CHANGE I reviewed the tracing and have either agreed or edited the findings inthis report. Electronically Signed On 04-03-2023 11:43:40 EDT by OSCAR HONG. Sanjuanita Luis NP CARDIAC ECG ORDERABL ES [facility] EKG * NT PRO BNP (03/20/2023 7:43 EDT) NT-pro BNP 125 <299 pg/mL 03/20/2023 8:57 EDT [facility] Comment: In the acute setting NT-proBNP values <300 pg/mL have a 98% NPV for excluding acute heart failure. In outpatient populations, NT-proBNP values <125 have a 99% NPV for excluding heart failure. Blood VENOUS BLOOD / Unknown Venipuncture / Unknown 03/20/2023 7:43 EDT 03/20/2023 7:56 EDT Sanjuanita Luis NP CHEMISTRY & BLOOD GA S ORDERABLES Performing Organization Address City/[facility]/ZIP Co de Phone Number [facility] [address] [place] [phone] * BASIC METABOLIC PANEL (BMP) (03/20/2023 7:43 EDT) Sodium 138 136 - 145 mmol/L 03/20/2023 8:29 EDT [facility] Potassium 4.1 3.5 - 5.0 mmol/L 03/20/2023 8:29 [facility] Chloride 104 96 - 110 mmol/L 03/20/2023 8:29 [facility] CO2 Total 23 22 - 32 mmol/L 03/20/2023 8:29 [facility] Anion Gap 11 5 - 14 mmol/L 03/20/2023 8:29 [facility] Glucose 96 70 - 99 mg/dl 03/20/2023 8:29 [facility] Calcium 8.9 8.5 - 10.5 mg/dL 03/20/2023 8:29 [facility] BUN 12 10 - 26 mg/dL 03/20/2023 8:29 [facility] Creatinine 0.79 0.66 - 1.25 mg/dL 03/20/2023 8:29 EDT [facility] eGFR 106 >60 mL/min/1.73 m2 03/20/2023 8:29 EDT [facility] Blood VENOUS BLOOD / Unknown Venipuncture / Unknown 03/20/2023 7:43 EDT 03/20/2023 7:56 EDT Rosa Funez DO CHEMISTRY & BLOOD GAS ORDERABLES Performing Organization Address [facility] Co de Phone Number [facility] [address] [place] [address] * TROPONIN I (03/20/2023 7:43 EDT) Troponin I (ng/mL) <0.034 <0.034 ng/mL 03/20/2023 8:29 EDT [facility] Blood VENOUS BLOOD / Unknown Venipuncture / Unknown 03/20/2023 7:43 EDT 03/20/2023 7:56 EDT Narrative [facility] - 03/20/2023 8:29 EDT The results of this assay can be falsely lowered due to the consumption of Biotin. Sanjuanita Luis NP CHEMISTRY & BLOOD GA S ORDERABLES Performing Organization Address [facility] Co de Phone Number [facility] [address] [place] [address] * CREATININE (03/20/2023 7:00 EDT) Creatinine 0.82 0.66 - 1.25 mg/dL 03/20/2023 7:59 EDT [facility] eGFR 104 >60 mL/min/1.73 m2 03/20/2023 7:59 EDT [facility] Blood VENOUS BLOOD / Unknown Venipuncture / Unknown 03/20/2023 7:00 EDT 03/20/2023 7:26 EDT Howard Flores MD CHEMISTRY & BLOOD GA S ORDERABLES [facility] [address] [place] [address] * (ABNORMAL) COMPLETE BLOOD COUNT (03/19/2023 11:30 EDT) WBC 9.67 4.00 - 10.40 K/cmm 03/19/2023 11:55 EDT [facility] RBC 4.22(L) 4.36 - 5.78 M/cmm 03/19/2023 11:55 EDT [facility] Hemoglobin 12.4(L) 13.8 - 17.3 g/dL 03/19/2023 11:55 EDT [facility] HCT 34.4(L) 39.5 - 50.2 % 03/19/2023 11:55 EDT [facility] MCV 82 81 - 95 fL 03/19/2023 11:55 EDT [facility] MCH 29.4 27.6 - 33.0 pg 03/19/2023 11:55 EDT [facility] MCHC 36.0 32.8 - 36.4 g/dL 03/19/2023 11:55 T [facility] RDW-CV 12.4 <14.2 % 03/19/2023 11:55 T [facility] RDW-SD 36.6 <46.0 fl 03/19/2023 11:55 EDT [facility] PLT 224 141 - 377 K/cmm 03/19/2023 11:55 T [facility] MPV 9.4(L) 9.5 - 12.7 fL 03/19/2023 11:55 EDT [facility] Blood VENOUS BLOOD / Unknown Venipuncture / Unknown 03/19/2023 11:30 EDT 03/19/2023 11:46 EDT Sanjuanita Luis NP HEMATOLOGY & PF4 ORD ERABLES [facility] [address] [place] [address] * FL CYSTOGRAM (03/19/2023 9:49 EDT) Anatomical Region Laterality Modality Body Radio Fluoroscop y 03/19/2023 10:4 1 EDT Impressions 03/19/2023 10:41 EDT No evidence of leak or fistula [id number] Narrative 03/19/2023 10:41 EDT FL CYSTOGRAM ??03/19/2023 9:15 AM Clinical History/Comments: possible bladder injury;. Findings: Cystogram Cystogram was performed through previously placed Pope catheter. The patient received 300 cc of contrast intra- vesicularly. Study shows normal-appearing urinary bladder with no evidence of extraluminal contrast. Procedure Note Danya Olmstead MD - 03/19/2023 FL CYSTOGRAM 03/19/2023 9:15 AM Clinical History/Comments: possible bladder injury;. Findings: Cystogram Cystogram was performed through previously placed Pope catheter. The patient received 300 cc of contrast intra- vesicularly. Study shows normal-appearing urinary bladder with no evidence ofextraluminal contrast. IMPRESSION No evidence of leak or fistula [id number] Sanjuanita Luis BOX MACHINE OPERATOR IMG FLUOROSCOPY RITA JUAN * SURGICAL PATHOLOGY (03/18/2023 10:59 EDT) Note to Patient The following pathology results have been interpreted by your pathologist and may be available to you before your health provider has had the opportunity to review them. Please allow time for your provider to receive these results and explore management options, if applicable. 03/21/2023 10:23 [facility] Final Diagnosis A. RECTUM AND ANUS, RESECTION: - Consistent with severe diversion colitis. - Benign reactive lymph nodes. - Negative for dysplasia and malignancy. 03/21/2023 10:23 [facility] Attestation There was significant resident/fellow involvement in the diagnostic evaluation of this case. By the signature below, the attending physician certifies that they have personally conducted a gross and/or microscopic examination of the described specimens and rendered or confirmed the above diagnosis. 03/21/2023 10:23 [facility] at 1023 Clinical History Proctitis 03/21/2023 10:23 EDT [facility] Gross Description A. Received fresh labelled with proper patient identification (initials B,R) and rectum sigmoid and anus history of colitis is an unoriented segment of rectosigmoid colon and anus (13.5 cm in length x 3.0 cm in luminal circumference), received opened with a moderate amount of attached hyperemic mesentery. The mucosa is garduno to brown with decreased mucosal folds. No mass is grossly identified. The serosa is pink-garduno and smooth. The average colon wall thickness is 0.8 cm. Multiple possible lymph nodes are identified, ranges from 1.0 x 0.6 x 0.4 cm to 1.5 x 1.1 x 0.6 cm. Irrigation System Operator sections are submitted as follows: BLOCK BYRD A1- proximal margin en face A2- distal anal margin en face A3-A5- large bowel operations support representative sections full-thickness A6- 2 possible lymph nodes bisected A7- 2 possible lymph nodes one bisected A8- 1 possible lymph node bisected [facility] 03/19/2023 16:18 03/21/2023 10:23 EDT [facility] Resident/Aleks w: Ji Zurita MB [facility] 03/21/2023 10:23 EDT [facility] Performing Lab [facility] 03/21/2023 10:23 EDT [facility] Scanned Images 03/21/2023 10:23 T [facility] Tissue COLON STRUCTURE / Unknown 03/18/2023 10:59 EDT 03/18/2023 15:33 EDT Howard Flores MD PATHOLOGY ORDERABLES [facility] [address] [place] [address] * (ABNORMAL) COMPLETE BLOOD COUNT (03/18/2023 8:34 EDT) WBC 5.02 4.00 - 10.40 K/cmm 03/18/2023 8:48 [facility] RBC 4.53 4.36 - 5.78 M/cmm 03/18/2023 8:48 [facility] Hemoglobin 13.2(L) 13.8 - 17.3 g/dL 03/18/2023 8:48 [facility] HCT 37.4(L) 39.5 - 50.2 % 03/18/2023 8:48 [facility] MCV 83 81 - 95 fL 03/18/2023 8:48 [facility] MCH 29.1 27.6 - 33.0 pg 03/18/2023 8:48 [facility] MCHC 35.3 32.8 - 36.4 g/dL 03/18/2023 8:48 [facility] RDW-CV 12.3 <14.2 % 03/18/2023 8:48 [facility] RDW-SD 37.2 <46.0 fl 03/18/2023 8:48 [facility] PLT 232 141 - 377 K/cmm 03/18/2023 8:48 [facility] MPV 9.0(L) 9.5 - 12.7 fL 03/18/2023 8:48 [facility] Blood VENOUS BLOOD / Unknown Venipuncture / Unknown 03/18/2023 8:34 EDT 03/18/2023 8:38 EDT Yusuf Ventura MD HEMATOLOGY & PF4 ORD ERABLES [facility] [address] [place] [address] documented in this encounter Visit Diagnoses Diagnosis Ulcerative colitis, chronic, other complication (HCC-CMS)- Primary Proctitis Other specified disorder of rectum and anus documented in this encounter Admitting Diagnoses Diagnosis Ulcerative colitis, chronic, other complication (HCC-CMS) documented in this encounter Administered Medications Inactive Administered Medications - up to 3 most recent administrations Medication Order MAR Action Action Date Dose Rate Site acetaminophen (TYLENOL) tablet 1,000 mg 1,000 mg, oral, EVERY 6 HOURS, First dose on Fri03/18/23 at 2000, Until Discontinued, Routine Given 03/21/2023 9:11 EDT 1,000 mg Given 03/20/2023 20:05 EDT 1,000 mg Given 03/20/2023 14:11 EDT 1,000 mg enoxaparin (LOVENOX) injection 40 mg 40 mg, subcutaneous, AT BEDTIME, First dose on Fri03/19/23 at 2100, Until Discontinued, Routine Given 03/20/2023 20:04 EDT 40 mg Given 03/19/2023 20:01 EDT 40 mg fluticasone propion-salmeteroL (ADVAIR) 250-50 mcg/dose diskus inhaler 1 Puff 1 Puff, inhalation, 2 TIMES DAILY, First dose (after last modification) on Fri03/20/23 at 0800, Until Discontinued, STAT Given 03/21/2023 9:14 EDT 1 Puff Given 03/20/2023 20:05 EDT 1 Puff Given 03/20/2023 7:53 EDT 1 Puff HYDROmorphone (DILAUDID) tablet 2-4 mg 2-4 mg, oral, EVERY 4 HOURS PRN, Starting on Fri03/18/23 at 1416, Until Fri03/21/23 at 1631, Pain, Routine Given 03/20/2023 23:48 EDT 4 mg Given 03/19/2023 23:31 EDT 4 mg Given 03/19/2023 12:45 EDT 4 mg iohexoL (OMNIPAQUE 350) solution 100 mL 100 mL, intravenous, Once in imaging, 1 dose, Starting on Fri03/20/23 at 1346, Until Fri03/21/23 at 1631, Routine, Imaging Protocol Orders ipratropium-albuteroL (DUONEB) 0.5 mg-3 mg(2.5 mg base)/3 mL nebulizer solution 3 mL 3 mL, nebulization, EVERY 4 HOURS PRN, Starting on Fri03/20/23 at 1158, Until Fri03/21/23 at 1631, Wheezing, Shortness of Breath, Routine lidocaine-EPINEPHrine 1 %-1:100,000 4 mL, BUPivacaine (PF) (MARCAINE) 0.5% 20 mL PRN, Starting on Fri03/18/23 at 1127, Until Fri03/18/23 at 1156, Routine, Intraprocedure Given 03/18/2023 11:27 EDT 10 mL nitroglycerin (NITROSTAT) SL tablet 0.4 mg 0.4 mg, sublingual, EVERY 5 MIN PRN, Starting on Nasreen 03/20/23 at 0805, Until Fri03/21/23 at 1631, Chest Pain, STAT ondansetron (PF) (ZOFRAN) injection 4 mg 4 mg, intravenous, EVERY 6 HOURS PRN, Starting on Fri03/18/23 at 1506, Until Fri03/21/23 at 1631, Nausea, Routine Given 03/18/2023 17:09 EDT 4 mg ondansetron (ZOFRAN-ODT) disintegrating tablet 4 mg 4 mg, oral, EVERY 6 HOURS PRN, Starting on Fri03/18/23 at 1506, Until Fri03/21/23 at 1631, Nausea, Routine sodium chloride 0.9 % (flush) flush 5 mL 5 mL, intravenous, PRN, Starting on Fri03/19/23 at 0800, Until Fri03/21/23 at 1631, Line Care, Routine sodium chloride 0.9 % irrigation PRN, Starting on Fri03/18/23 at 0937, Until Fri03/18/23 at 1156, Routine, Intraprocedure Given 03/18/2023 11: 27 EDT 1,000 mL Given 03/18/2023 9:37 EDT 1,000 mL documented in this encounter Discontinued Medications Medication Sig Discontinue Reason Start Date End Da te hydrocortisone (ANUSOL-HC) 2.5 % rectal cream Place 1 Application rectally 2 times daily. 01/23/2023 03/21/2023 documented as of this encounter Historical Medications * This list may reflect changes made after this encounter. Medication Sig Dispensed Refills Start Date End Date niacin (NICOTINIC ACID) 100 mg tablet Take 1 Tablet by mouth 2 times daily. added in this encounter Active and Recently Administered Medications Times are shown in EDT. Scheduled Medication Order 03/19/2023 03/20/2023 03/21/2023 acetaminophen (TYLENOL) tablet 1,000 mg 1,000 mg, oral, EVERY 6 HOURS, First dose on Fri03/18/23 at 2000, Until Discontinued, Routine 0249 (Given - Provider: Niya Frank, MATTHEW)0808 (Given - Provider: Carol Montes RN)1520 (Given - Provider: Sarah Moya RN)1946 (Given - Provider: Niya Frank RN) 0310 (Given - Provider: Niya Frank RN)0910 (Given - Provider: Paul Benedict RN - Comment: transfer from floor rapid response)1411 (Given - Provider: Paul Benedict RN)2004 (Given - Provider: Lalo Henry RN) 0200 (Canceled Entry - Provider: Batch Job User Admin - Comment: Automatically canceled at discontinue of medication order)0911 (Given - Provider: Jovani Barrios RN)1400 (Canceled Entry - Provider: Batch Job User Admin - Comment: Automatically canceled at discontinue of medication order) enoxaparin (LOVENOX) injection 40 mg 40 mg, subcutaneous, AT BEDTIME, First dose on Fri03/19/23 at 2100, Until Discontinued, Routine 2000 (Given - Provider: Niya Frank RN) 2003 (Given - Provider: Lalo Henry, MATTHEW) fluticasone propion-salmeteroL (ADVAIR) 250-50 mcg/dose diskus inhaler 1 Puff 1 Puff, inhalation, 2 TIMES DAILY, First dose (after last modification) on Fri03/20/23 at 0800, Until Discontinued, STAT 0753 (Given - Provider: Sarah Moya RN)2004 (Given - Provider: Lalo Henry, MATTHEW) 0914 (Given - Provider: Jovani Barrios, MATTHEW) iohexoL (OMNIPAQUE 350) solution 100 mL (COMPLETED) 100 mL, intravenous, Once in imaging, 1 dose, Starting on Fri03/20/23 at 0838, Until Fri03/20/23 at 0838, Routine, Imaging Protocol Orders 0838 (Given - Provider: Sarwat Quinteros) iohexoL (OMNIPAQUE 350) solution 100 mL 100 mL, intravenous, Once in imaging, 1 dose, Starting on Fri03/20/23 at 1346, Until Fri03/21/23 at 1631, Routine, Imaging Protocol Orders iohexoL (OMNIPAQUE 350) solution 100 mL (COMPLETED) 100 mL, intravenous, Once in imaging, 1 dose, Starting on Fri03/20/23 at 1347, Until Fri03/20/23 at 1358, Routine 1358 (Given - Provider: Noreen Kaminski) tranexamic acid (CYKLOKAPRON) inhalation 500 mg (COMPLETED) 500 mg, inhalation, NOW X1, 1 dose, On Fri03/20/23 at 0830, Indications: Hemoptysis, STAT 0840 (Given - Provider: Lexie Kothari, RT) Continuous Medication Order 03/19/2023 03/20/2023 03/21/2023 electrolyte-A (PLASMALYTE-A) solution (CANCELED) at 75 mL/hr, intravenous, CONTINUOUS, Starting on Fri03/18/23 at 1200, Until Fri03/19/23 at 0741, Routine 0700 (Rate Documented - Provider: Carol Montes RN)1923 (Completed - Provider: Niya Frank RN) PRN Medication Order 03/19/2023 03/20/2023 03/21/2023 HYDROmorphone (DILAUDID) tablet 2-4 mg 2-4 mg, oral, EVERY 4 HOURS PRN, Starting on Fri03/18/23 at 1416, Until Fri03/21/23 at 1631, Pain, Routine 1245 (Given - Provider: Carol Montes RN)2331 (Given - Provider: Niya Frank, MATTHEW) 2348 (Given - Provider: Lalo Henry RN) ipratropium-albuteroL (DUONEB) 0.5 mg-3 mg(2.5 mg base)/3 mL nebulizer solution 3 mL 3 mL, nebulization, EVERY 4 HOURS PRN, Starting on Fri03/20/23 at 1158, Until Fri03/21/23 at 1631, Wheezing, Shortness of Breath, Routine nitroglycerin (NITROSTAT) SL tablet 0.4 mg 0.4 mg, sublingual, EVERY 5 MIN PRN, Starting on Fri03/20/23 at 0805, Until Fri03/21/23 at 1631, Chest Pain, STAT nitroglycerin (NITROSTAT) SL tablet 0.4 mg (CANCELED) 0.4 mg, sublingual, EVERY 5 MIN PRN, 3 doses, Starting on Nasreen 03/20/23 at 0806, Until Nasreen 03/20/23 at 0807, Chest Pain, STAT 0810 (Given - Provider: Connie Kline, RN)0826 (Given - Provider: Connie Kline, MATTHEW) ondansetron (PF) (ZOFRAN) injection 4 mg(Linked Group 1) 4 mg, intravenous, EVERY 6 HOURS PRN, Starting on Fri03/18/23 at 1506, Until Fri03/21/23 at 1631, Nausea, Routine ondansetron (ZOFRAN-ODT) disintegrating tablet 4 mg(Linked Group 1) 4 mg, oral, EVERY 6 HOURS PRN, Starting on Fri03/18/23 at 1506, Until Fri03/21/23 at 1631, Nausea, Routine sodium chloride 0.9 % (flush) flush 5 mL(Linked Group 2) 5 mL, intravenous, PRN, Starting on Fri03/19/23 at 0800, Until Fri03/21/23 at 1631, Line Care, Routine Linked Groups Order Group 1: ondansetron (PF) (ZOFRAN) injection 4 mgJump to med 4 mg, intravenous, EVERY 6 HOURS PRN, Starting on Fri03/18/23 at 1506, Until Fri03/21/23 at 1631, Nausea, Routine Or ondansetron (ZOFRAN-ODT) disintegrating tablet 4 mgJump to med 4 mg, oral, EVERY 6 HOURS PRN, Starting on Fri03/18/23 at 1506, Until Fri03/21/23 at 1631, Nausea, Routine Group 2: Change IV to Saline Lock (CANCELED) Routine, ONE TIME, On Fri03/19/23 at 0800, For 1 occurrence And sodium chloride 0.9 % (flush) flush 5 mLJump to med 5 mL, intravenous, PRN, Starting on Fri03/19/23 at 0800, Until Fri03/21/23 at 1631, Line Care, Routine documented in this encounter Orders Medications Ordered That Moses ht Not Have Been Administered Count Last Ordered Date First Ordered Date dextrose 50 % solution 12.5 g 1 03/20/2023 fluticasone propion-salmeter oL (ADVAIR) 250-50 mcg/dose diskus inhaler 1 Puff 3 03/20/2023 glucagon injection 1 mg 1 03/20/2023 insulin aspart U-100 (NOVOLO G FLEXPEN) injection 1 03/20/2023 iohexoL (OMNIPAQUE 350) solution 100 mL 3 1 ipratropium-albuteroL (DUONE B) 0.5 mg-3 mg(2.5 mg base)/3 mL nebulizer solution 3 mL 1 03/20/2023 nitroglycerin (NITROSTAT) SL tablet 0.4 mg 2 03/20/2023 tranexamic acid (CYKLOKAPRON ) inhalation 500 mg 1 03/20/2023 acetaminophen (TYLENOL) solu tion unit dose cup 995 mg 1 03/18/2023 acetaminophen (TYLENOL) tablet 1,000 mg 3 1 atropine 0.1 mg/mL syringe 0.5 mg 1 chlorhexidine gluconate 2 % cloth 1 Each 1 03/18/2023 diphenhydrAMINE (BENADRYL) i njection 12.5 mg 1 03/18/2023 electrolyte-A (PLASMALYTE-A) solution 1 enoxaparin (LOVENOX) injection 40 mg 1 03/02 fentaNYL citrate (PF) injection 25-50 mcg 1 03/18/2023 gabapentin (NEURONTIN) capsule 600 mg 1 heparin injection 5,000 Units 1 03/18/2023 HYDROmorphone (DILAUDID) tablet 2-4 mg 2 HYDROmorphone (PF) (DILAUDID ) 0.5 mg/0.5 mL syringe 0.2-0.4 mg 1 03/18/2023 HYDROmorphone (PF) (DILAUDID ) 0.5 mg/0.5 mL syringe 0.3-0.5 mg 1 03/18/2023 lactated ringers (LR) infusion 3 03/18/2023 lidocaine (PF) 10 mg/mL (1 % ) injection 2 mg 2 03/18/2023 naloxone (NARCAN) injection 0.2 mg 1 2022 ondansetron (PF) (ZOFRAN) injection 4 mg 2 03/18/2023 ondansetron (ZOFRAN-ODT) dis integrating tablet 4 mg 1 03/18/2023 sodium chloride 0.9 % (flush) flush 5 mL 1 03/18/2023 Diet Count Last Ordered Date First Orde red Date DISCHARGE DIET 1 03/21/2023 Nursing Count Last Ordered Date First Orde red Date ACTIVITY INSTRUCTIONS 1 03/21/2023 BATHING INSTRUCTIONS 1 03/21/2023 DRIVING INSTRUCTIONS 1 03/21/2023 WOUND CARE INSTRUCTIONS 3 03/21/2023 Respiratory Care Count Last Ordered Date First Ordered Date DRY POWDERED OR METERED DOSE INHALER 1 03/02 Admission Count Last Ordered Date First Orde red Date ADMIT TO INPATIENT 1 03/18/2023 Transfer Count Last Ordered Date First Orde red Date TRANSFER PATIENT 2 03/20/2023 Discharge Count Last Ordered Date First Orde red Date DISCHARGE PATIENT 1 03/21/2023 Legal Count Last Ordered Date First Orde red Date MISCELLANEOUS DISCHARGE INSTRUCTIONS 2 03/03 documented in this encounter Care Teams Glass Mechanic Relationship Specialty Start Date End Date Lisa Mayorga MD [address] [place] [address] PCP - General 01/12/20 documented as of this encounter
--- OUTSIDE RECORDS SUMMARY | 2023-12-15 15:50 | XMS_ITS | Encounter Summary ---
Author Organization [facility] Address [address] [place] [address] Care Team Providers Care Rental Clerk [employer] Equipment Name Role Phone Lisa Mayorga MD Primary Care Provider [phone] Reason for Visit * Reason Comments Post-OP Follow Up * Consult (Routine/Next Available) - Receiving Office to Obtain Authorization Specialty Diagnoses / Procedures Referred By Sheba childs Referred To Contact General Surgery Diagnoses Ulcerative colitis, chronic, other complication (HCC-CMS) [facility] [address] [place] [id number] Howard Flores MD [address] [place] [id number] Referral ID Status Reason Start Date Expiration Date Visits Requested Visits Authorized [id number] Receiving Office to Obtain Authorization Specialty Services Required 03/21/20 23 1 1 Encounter Details Date Type Department Care Team (Late st Contact Info) Description 04/28/2023 15:20 EST Post-op Visit [facility] General Surgery - [address] [id number] Howard Folres MD [address] [place] [phone] Ulcerative colitis, chronic, other complication (HCC-CMS) (Primary Dx) Social History Tobacco Use Types [...] place to sleep or slept in a long term (including now)? No 03/19/2023 Interpersonal Safety Answer [...] (5 years old or older) No 03/23/2023 documented as of this encounter Progress Notes * Howard Flores MD - 04/28/2023 1520 EST This office note has been dictated. * Howard Flores MD - 04/28/2023 1426 EST [facility] GENERAL SURGERY PROGRESS / FOLLOWUP NOTE - 04/28/2023 SUBJECTIVE: The patient is a 53-year-old gentleman status post perineal proctectomy. Of note, the patient's specimen was 21 cm in length. He has had some pressure in the anal region and some tenderness around his tailbone. No complaints with his perineal wound. He states his urinary function is better. At this point he has not had sexual function since surgery. PAST MEDICAL HISTORY, MEDICATIONS, ALLERGIES, FAMILY AND SOCIAL HISTORY: All reviewed as of today in [facility]. PHYSICAL EXAMINATION: Constitutional examination is normal. Abdomen is benign. Ileostomy is withoutcomplication. External anal exam: His wound is completely healed. No evidence of any residual sutures or any other abnormalities. There is mild tenderness around the coccyx. No signs of infection. IMPRESSION: Recovering nicely from perineal proctectomy. Slow return of urinary function and sexualfunction. The patient is encouraged that his urinary function will generally improve. He is also encouraged that his sexual function may improve. He is asked to discuss Cialis or Viagra (Cialis may be a better option as it will probably help with his urinary function and sexual function). He will follow up with me in 4 months. If he has significant difficulty, he will consider having him see Howard Lee, our urologist. Howard Flores MD, FACS / CD Dictation ID: [id number] cc: Lisa Mayorga MD, [facility], [address] [facility] [address] [address] documented in this encounter Plan of Treatment Not on file documented as of this encounter Visit Diagnoses Diagnosis Ulcerative colitis, chronic, other complication (HCC-CMS)- Primary documented in this encounter Care Teams Rental Clerk Tool And Equipment Relationship Specialty Start Date End Date Lisa Mayorga MD [address] [place] [address] PCP - General 01/12/20 documented as of this encounter
--- OUTSIDE RECORDS SUMMARY | 2023-12-15 15:50 | XMS_ITS | Encounter Summary ---
Author Organization [facility] Address [address] [place] [address] Care Team Providers Care Sorter Upholstery Parts Name Role Phone Lisa Mayorga MD Primary Care Provider [phone] Encounter Details Date Type Department Care Team (Late st Contact Info) Description 07/07/2023 Lab Requisition [facility] Pathology & Laboratory Medicine - [facility] [address] [place], [place] [id number] Outr Resulting Lab, Provider Social History Tobacco Use Types Packs/Day Years [...] place to sleep or slept in a jail (including now)? No 03/19/2023 Interpersonal Safety Answer [...] No 03/23/2023 documented as of this encounter Plan of Treatment Not on file documented as of this encounter Procedures Procedure Name Priority Date/Time Associated Diagnosis Comments PSA TOTAL, DIAGNOSTIC Routine 07/07/2023 12:16 EST documented in this encounter Results * PSA TOTAL, DIAGNOSTIC (07/07/2023 12:16 EST) PSA 0.9 <=3.5 ng/mL 07/08/2023 9:02 EST [facility] Blood VENOUS BLOOD / Unknown 07/07/2023 12:16 EST 07/07/2023 21:49 EST Narrative [facility] - 07/08/2023 9:02 EST NOTE: Serum PSA concentration should not be interpreted as absolute evidence for the presence or absence of malignant disease. Assayed on Siemens ADVIA Centaur XPT using chemiluminescent technology.??Values obtained by using different assay methods cannot be used interchangeably. Provider Outr Resulting Lab CHEMISTRY & BLOOD GAS ORDERABLES [facility] [address] [place] [address] documented in this encounter Visit Diagnoses Not on filedocumented in this encounter Care Teams Sorter Upholstery Parts Relationship Specialty Start Date End Date Berrian, Lisa, MD [address] [place] [id number] PCP - General 01/12/20 documented as of this encounter
--- OUTSIDE RECORDS SUMMARY | 2023-12-15 15:50 | XMS_ITS | Encounter Summary ---
Author Organization [facility] Address [address] [place] [address] Care Team Providers Care Health Education Teacher Name Role Phone Lisa Mayorga MD Primary Care Provider [phone] Reason for Referral * Specialty Diagnoses / Procedures Referred By Contac t Referred To Contact Sanjuanita Luis NP [address] [place] [phone] Referral ID Status Reason Start Date Expiration Date Visits Re quested Visits Authorized Comments Please call the General Surgery clinic at [phone] if you have any questions or concerns. Please keep your follow up appointment with Dr. Flores. * Specialty Diagnoses / Procedures Referred By Contac t Referred To Contact Sanjuanita Luis NP [address] [place] [phone] Referral ID Status Reason Start Date Expiration Date Visits Re quested Visits Authorized Comments Chest pain (angina) Dizziness or fainting Decreased urine output Fever greater than 101 or chills Inability to swallow or increasing difficulty swallowing Increased or new pain Nausea or vomiting Pain unrelieved by medication Recurrence of symptoms that brought you to the hospital Severe or increasing headache Shortness of breath or rapid breathing Skin rash Signs of infection such as pain, redness, swelling or drainage at procedure or wound site Swelling in your legs * Specialty Diagnoses / Procedures Referred By Sheba childs Referred To Contact Sanjuanita Luis NP [address] [phone] Referral ID Status Reason Start Date Expiration Date Visits Re quested Visits Authorized Comments We are currently collecting quality data on patients having surgery. You may receive a phone call, email, and/or letter about your surgery asking you a series of follow up questions to evaluate specifics aspects of your care. Thank you for your participation. Reason for Visit * Reason Comments Fever Retained rectal stum p with a history of ulcerative colitis. TX from [facility]. Rectum removed, sutured shut, has ileostomy. Ulcerative colitis. No abx's- per surgeon recs.. 1 gram tylenol. Fever chills. * Auth/Cert (Routine) Specialty Diagnoses / Procedures Referred By Sheba childs Referred To Contact Diagnoses Abdominal pain Postoperative ileus (HCC-CMS) Sepsis post procedure; ileus Referral ID Status Reason Start Date Expiration Date Visits Re quested Visits Authorized [id number] 1 1 Encounter Details Date Type Department Care Team (Late st Contact Info) Description 03/22/2023 22:14 EDT - 03/27/2023 16:55 EDT Hospital Encounter [facility] [address] [place] [address] Vitaliy Oliva MD 111 [facility], [facility] [address] [place] [address] Rene Moran MD [address] [place] [phone] Howard Flores MD [address] [phone] Abdominal pain (Primary Dx); Bacteremia Discharge Disposition: Home or Self Care Social [...] place to sleep or slept in a penitentiary (including now)? No 03/19/2023 Interpersonal Safety Answer [...] 9) 03/22/20232228 EDT Body Mass Index 24.81 03/22/2023 222 EDT documented in this encounter Functional Status [...] No 03/23/2023 documented as of this encounter Discharge Summaries * Fransisco Harmon MD - 03/27/2023 1116 EDT Images from the original note were not included. Surgery Discharge Summary Primary Care Provider: Lisa Mayorga Attending Physician: Howard Flores MD Admit Date: 03/22/2023 Discharge Date: 03/27/23 Disposition: Home or self care Problems and Procedures Admitting Diagnosis: Fever/abdominal pain Principal/Final Diagnosis: Bacteremia Additional Problems Managed in the Hospital Active Hospital Problems Diagnosis Date Noted ??? *Abdominal pain 03/23/2023 ??? Postoperative ileus (FORMERLY [facility]) 03/22/2023 Resolved Hospital Problems No resolved problems to display. Principal Procedure: Perineal proctectomy Date: 03/18/2023 Secondary Procedures: none Hospital Course Mic Argueta is a 53 y.o. male with a history of atrial fibrillation and ulcerative colitis who underwent a perineal proctectomy on 03/18/23 and subsequently developed fever, tachycardia, and worsening abdominal pain prompting re-admission on 03/22/23. At this time patient had intermittent chills,headache, and malaise. Blood cultures were positive for MSSA, likely due to left peripheral line infection. Patient symptoms included left forearm swelling and distal left arm thrombophlebitis. Venous duplex ultrasound performed that confirmed avascular component of mixed echogenicity indicative of infection as well as superficial venous thrombosis in the left upper extremity. Started patient on IV flagyl + ceftriaxone on 03/23, switched to IV cefazolin specifically to target MSSA on 03/24. Overall, patient's abdominal pain, malaise, and fevers as well as left arm swelling gradually improved during hospital. Tmax of 38.4C on 03/23. On 03/25, patient's shin was pulled but started having bladder retention. He underwent straight cathetrization for 575 ml but was able to regain function overnight. Bladder cystogram performed and did not show further retention, leakage, or fistula. Patient discharged on oral abx after completion of 5x IV abx and no growth on blood culture. There was question of possible post-operative ileus on admission per CT completed in [place] a day prior. However, repeat CT scan did not appreciate significant ileus and patient had increased appetite, bowel sounds, and ostomy filling upon discharge. Allergies and Immunizations Allergies Allergen Reactions ??? Nsaids (Non-Steroidal Anti-Inflammatory Drug) Anaphylaxis ??? Ambien [Zolpidem] Sleep walking/ driving There is no immunization history on file for this patient. Transition of Care Plans Condition at Discharge Good Assessment at Discharge Vital signs: Patient Vitals for the past 12 hrs: BP Resp Temp SpO2 O2 Device 03/24/23 1425 131/82 16 -- 99 % None 03/24/23 1026 137/84 18 36.8 ??C (98.2 ??F) 98 % None 03/24/23 0700 -- -- -- -- None Results Pending at Discharge Test results still pending from this admission Procedure Component Value Units Date/Time Bacterial Culture, Blood [[id number]] Collected: 03/24/23 1554 Lab Status: In process Specimen: Blood, Venous Updated: 03/24/23 1616 Bacterial Culture, Blood [[id number]] Collected: 03/24/23 1548 Lab Status: In process Specimen: Blood, Venous Updated: 03/24/23 1616 Bacterial Culture, Blood [[id number]] (Abnormal) Collected: 03/22/232306 Lab Status: Preliminary result Specimen: Blood, Venous Updated: 03/24/23 1419 Organism ID Staphylococcus aureus Bacterial Culture, Blood [[id number]] (Abnormal) Collected: 03/22/232307 Lab Status: Preliminary result Specimen: Blood, Venous Updated: 03/24/23 1419 Organism ID Staphylococcus aureus CT ABDOMEN PELVIS W CONTRAST Result Date: 03/23/2023 1. No adverse interval change. 2. Decreased retroperitoneal and intraperitoneal gas. 3. Extensive postprocedural change following recent proctectomy. 4. Remote colectomy, end ileostomy, and additional nonacute findings above. [id number] CT ABDOMEN PELVIS W CONTRAST Result Date: 03/20/2023 1. Expected postoperative changes in the abdomen and pelvis, status post proctectomy. No organized collection or unexpected acute inflammatory changes in the abdomen or pelvis. 2. Right abdominal endileostomy, status post remote total colectomy. 3. Prior bilateral inguinal hernia repair and posterior L5-S1 fusion. [id number] CT ANGIO CHEST PE PROTOCOL Result Date: 03/20/2023 No evidence of pulmonary emboli or other significant abnormality [id number] FL CYSTOGRAM Result Date: 03/19/2023 No evidence of leak or fistula [id number] Relevant Studies at Discharge N/A Last Lab Results at Discharge BUN: Lab Results Component Value Date BUN 13 03/24/2023 Creatinine: Lab Results Component Value Date CREATININE 0.82 03/24/2023 CBC: Lab Results Component Value Date WBC 5.82 03/24/2023 RBC 4.14 (L) 03/24/2023 HGB 11.8 (L) 03/24/2023 HCT 33.5 (L) 03/24/2023 MCV 81 03/24/2023 MCH 28.5 03/24/2023 MCHC 35.2 03/24/2023 PLT 203 03/24/2023 DIFFTYPE Auto 03/24/2023 Discharge Follow Up Upcoming Appointments Apr 28, 2023 15:20 Post Op Visit with Howard Flores MD [facility] General Surgery [facility] (--) [address] [place] [phone] Chandler Xiao MS3 03/27/2023 I have read and agree with the medical student's above note, physical, and plan. I have edited where necessary and discussed the changes with the student. I was present in the room for patient interview and physical exam. documented in this encounter Medications at Time [...] 03/27/2023 04/04/2023 documented as of this encounter Ordered Prescriptions Prescription Sig Dispensed Refills Start Date End Da te cefpodoxime (VANTIN) 200 mg tablet Take 1 Tablet by mouth every 12 hours for 8 days. 16 Tablet 03/27/2023 04/04/2023 documented in this encounter Discharge Disposition Disposition Code Departure Means Destination Comment s Home or Self Usp documented in this encounter Progress Notes * Pita Butler RN - 03/27/2023 1647 EDT Nursing Discharge Note D: Patient noted with discharge orders to: home. A: Prescriptions e-scripted. Reviewed discharge instructions and prescriptions with Patient IV d/c'd. Belongings collected and sent home with patient. R: Patient verbalized understanding of discharge instructions and denied further questions. PITA BUTLER RN 03/27/2023 16:47 * Fransisco Harmon MD - 03/26/2023 0551 EDT Surgery Progress Note Service Date: 03/26/2023 Admit Date: 03/22/2023 22:14 Chief Complaint: Fever 24 Hour Events: ?? x1 overnight straight cath for urine retention, voided spontaneously after Subjective/Objective Subjective Patient was seen and examined this morning. He feels much better today - has a good appetite and isable to keep down solid food.Continues to deny chills or malaise. IV site on left arm is no longer painful, and thrombophlebitis has improved. Passing gas (via burping) and good endorses good output from ostomy bag. Says he has urinated at least 8 times last night, non-pain and clear colored voids. Objective Vital Signs Temp: [36.8 ??C (98.3 ??F)-37.3 ??C (99.1 ??F)] , Heart Rate: [70 BPM-89 BPM] , Pulse: --, Pulse From Oximetry: [84 BPM-100 BPM] , Resp: [15-18] , BP: (121-151)/(79-96) , SpO2: [96 %-99 %] Physical Exam General Appearance: alert, cooperative, no distress Lung: clear to auscultation bilaterally Heart: regular rate and rhythm Abdomen: soft, slight LLQ and periumbilical tenderness, gas and light brown output in bag Extremities: Warm and well perfused, no edema, mild erythematous swelling at distal LUE peripheral IV site with overlying dry ulcer Skin: Skin color, temperature, turgor normal. No rashes or lesions except as detailed in the extremities component of the physical exam Drain: serosanguinous fluid, in place Incision(s)/Wound(s): NA Is PICC or Central line present? No, PICC/Central line not present. Assessment/Plan Assessment 53 y.o. male with history of afib and ulcerative colitis now POD# 8 s/p perineal proctectomy, readmitted after developing a fever, tachycardia, and abdominal pain and presenting to an OSH ([facility]). Now on IV antibiotics for MSSA bacteremia, 2/2 infected infiltrated IV site on L arm. Patient's Tmax was 38.4 on 03/23 and has remained afebrile since. Repeat cultures have not grown anything thus far. Plan to continue 5 days IV abx and confirm negative blood culture prior to discharge with 10 days oral abx thereafter. Plan Principal Problem: MSSA bacteremia - Antibiotics x 5 days prior to discharge (last dose 03/27): IV cefazolin currently, 10d PO abx at discharge - Confirm negative blood culture prior to discharge - Bladder scan now, if not retaining hold flomax - Remove drain tomorrow if output over 24h <30 cc - Regular diet - anti-emetics PRN - Follow labs - Vascular consulted, appreciate recs - No intervention at this time VTE Prophylaxis Pharmacologic Prophylaxis: Enoxaparin (Lovenox) 40 mg SQ daily Discharge Plan Home or self care Jessica Caruso MS4 03/26/23 9:17 Chandler Xiao MS3 03/26/2023 I have read and agree with the medical student's above note, physical, and plan. I have edited where necessary and discussed the changes with the student. I was present in the room for patient interview and physical exam. * Mahad James MD - 03/25/2023 0744 EDT Vascular Surgery Progress Note Subjective Pt seen and examined at the bedside. Feeling okay, a bit discouraged to still be in the hospital, but maintaining a positive attitude. Denies any fevers/chills or nausea/vomiting overnight. Objective Temp: [36.7 ??C (98.1 ??F)-37.7 ??C (99.8 ??F)] , Pulse: --, Resp: [16-18] , BP: (121-143)/(74-104), SpO2: [94 %-99 %] General Appearance: alert, cooperative, no distress Lung: clear to auscultation bilaterally Heart: regular rate and rhythm, S1, S2 normal, no murmur, click, rub or gallop Abdomen: Soft, minimally tender over left lower quadrant radiating towards the infraumbilical area,nondistended, no palpable masses Neck: supple, symmetrical, trachea midline and no JVD Extremities: warm, atraumatic, elevated pustule over L ulnar aspect of distal forearm with 4-6 cm area of induration tracking proximally, edema over ulnar aspect of hand from 3rd-5th digits Skin: Skin color, temperature, turgor normal. No rashes or lesions except as detailed in the extremities component of the physical exam Incision(s)/Wound(s): clean, dry, intact Latest Reference Range & Units 03/24/23 07:05 WBC 4.00 - 10.40 K/cmm 5.82 Hemoglobin 13.8 - 17.3 g/dL 11.8 (L) HCT 39.5 - 50.2 % 33.5 (L) PLT 141 - 377 K/cmm 203 (L): Data is abnormally low Latest Reference Range & Units 03/24/23 09:29 Color Colorless, Yellow Yellow Clarity, UA Clear Clear Ketones Negative 3+ !! Blood, UA Negative 3+ ! Protein, UA Negative mg/dL 1+ ! Urobilinogen, UA Normal mg/dL Normal Nitrite Negative Negative Leuk Esterase Negative Negative !!: Data is critical (L): Data is abnormally low !: Data is abnormal Assessment 53-year-old male with history of atrial fibrillation and ulcerative colitis status post total colectomy with ileostomy in 2012 and perineal proctectomy on 03/18/2023 now with MSSA bacteremia likely secondary to thrombophlebitis of the left upper extremity peripheral IV site. Plan - venous duplex ultrasonography demonstrated area of mixed echogenicity consistent with infection - recommend peripheral intravenous catheter removal from left arm and continuing antibiotics - please re-consult for persistent bacteremia or clinical course worsening/not improving for vein excision - please otherwise page with questions #[phone] * Carlotta Larson - 03/24/2023 0812 EDT Surgery Progress Note Service Date: 03/24/2023 Admit Date: 03/22/2023 22:14 Chief Complaint: Fever 24 Hour Events: ?? Admitted to [facility] as transfer from [place], [place] Subjective/Objective Subjective Patient was seen and examined this morning. He is feeling tired. He also states that he has been experiencing some nausea without vomiting after drinking. He has been ambulating independently. - He continues to be intermittently tachycardic to 118. - Tmax 38.4 - WBC: 5.8 - Bacterial culture significant for MSSA - CT A/P with contrast: no significant changes/findings. Objective Vital Signs Temp: [37.1 ??C (98.8 ??F)-38.4 ??C (101.2 ??F)] , Heart Rate: [99 BPM] , Pulse: [94] , Pulse From Oximetry: [83 BPM-120 BPM] , Resp: [16-18] , BP: (102-148)/(47-95) , SpO2: [96 %-100 %] Physical Exam General Appearance: alert, cooperative, no distress Lung: clear to auscultation bilaterally Heart: regular rate and rhythm Abdomen: soft, LLQ and periumbilical tenderness, gas and light brown output in bag Extremities: Warm and well perfused, no edema, erythematous swelling at distal LUE peripheral IV site with pustule Skin: Skin color, temperature, turgor normal. No rashes or lesions Drain: serosanguinous fluid, in place Incision(s)/Wound(s): NA Is PICC or Central line present? No, PICC/Central line not present. Assessment/Plan Assessment 53 y.o. male with history of afib and ulcerative colitis now POD# 6 s/p perineal proctectomy, readmitted after developing a fever, tachycardia, and abdominal pain and presenting to an OSH ([facility]). Now on broad spectrum antibiotics for concern for infection, possible intra-abdominal. (+) 1 bottle blood cultures for S aureus concerning for bacteremia secondary to infected infiltrated IV site on L arm. Plan Principal Problem: Abdominal pain Active Problems: Postoperative ileus (HCC-CMS) - remain NPO - mIVF w/ plasmalyte at 115 cc/hr - anti-emetics - NG tube if emesis - Follow labs - Antibiotics: IV ceftriaxone, flagyl - f/u Vascular recommendations - Chest Xray VTE Prophylaxis Pharmacologic Prophylaxis: Enoxaparin (Lovenox) 40 mg SQ daily Discharge Plan Home or self care Carlotta Larson 03/24/2023 8:12 * Mahad James MD - 03/23/2023 0826 EDT Surgery Progress Note Service Date: 03/23/2023 Admit Date: 03/22/2023 22:14 Chief Complaint: Fever 24 Hour Events: ?? Admitted to [facility] as transfer from [place], [place] Subjective/Objective Subjective Pt seen and examined this morning. Wondering what is going on. Reports feeling clammy and having lower left abdomen pain. Objective Vital Signs Temp: [37.4 ??C (99.4 ??F)-38.2 ??C (100.8 ??F)] , Heart Rate: [92 BPM-117 BPM] , Pulse: [94-118] ,Pulse From Oximetry: --, Resp: [12-22] , BP: (130-146)/(69-100) , SpO2: [95 %-97 %] Physical Exam General Appearance: alert, cooperative, no distress Lung: clear to auscultation bilaterally Heart: regular rate and rhythm Abdomen: soft, LLQ and periumbilical tenderness, foamy light brown output in bag Extremities: Warm and well perfused, no edema, erythematous swelling at distal LUE peripheral IV site Skin: Skin color, temperature, turgor normal. No rashes or lesions Incision(s)/Wound(s): NA Is PICC or Central line present? No, PICC/Central line not present. Assessment/Plan Assessment 53 y.o. male with history of afib and ulcerative colitis now POD# 5 s/p perineal proctectomy, readmitted after developing a fever, tachycardia, and abdominal pain and presenting to an OSH ([facility]). Now on broad spectrum antibiotics for concern for infection, possible intra-abdominal. (+) 1 bottle blood cultures for S aureus at [place]. Plan Principal Problem: Abdominal pain Active Problems: Postoperative ileus ([facility]) - will attempt to get CT imaging from [place], in unable will plan to re- obtain CT w/ IV contrast - remain NPO - mIVF w/ plasmalyte at 115 cc/hr - anti-emetics - NG tube if emesis - Follow labs - Broad spectrum IV abx initiated. Bending blood cultures pending VTE Prophylaxis Pharmacologic Prophylaxis: Enoxaparin (Lovenox) 40 mg SQ daily Discharge Plan Home or self care MAHAD JAMES MD 03/23/2023 8:26 * Princess Baron RN - 03/23/2023 0120 EDT FOUR EYES SKIN ASSESSMENT Four Eyes skin assessment was performed on admission to the unit by Princess Loraine RN and Wood CASTRO. Patient has the following devices at the time of this assessment: BP cuff, Peripheral IV, O2 sat probe and Shin. Device related pressure injury present? Yes. Ostomy to RLQ and raise/swollen pastule to Left arm . All skin intact verified by: Princess Loraine RN. Last Gilmer Score: Instructions: ??? Add LDA for any identified wounds ??? Add [place] image for any suspected PI or non surgical wounds ??? Order wound consult if suspected PI identified ? ? If Gilmer is < or = to 16, initiate Pressure Injury Prevention Bundle ([id number]). 03/23/2023 3:17 documented in this encounter H&P Notes * Mook Cueva, DO - 03/22/2023 5470 EDT Surgical H+P Admission Admit Date: N/A Date of Service: 03/23/2023 Hospital day: LOS: 1 day Chief Complaint: Fevers, chills, nausea HPI: Patient is a 53-year-old male who underwent elective perineal prostatectomy on 03/18/2023. Hispostoperative period was complicated by an episode on postop day 2 which he became acutely tachypneic and tachycardic complaining of chest pain and shortness of breath as well as low volume hemoptysis. The patient was transferred to SICU and watched for period of time after resolution of his symptoms and was transferred back to the floor later that day as he remained stable. Patient was discharged on 03/21/2023 and he states today that he is feeling very well at that time. At approximately 4 AMthis morning on 03/22/2023 patient awoke feeling ill experiencing fever and chills with a Tmax of 102.5 at home. For this he states that he took the Tylenol that was prescribed to him by the hospitalhowever due to persistent symptoms his brought him to [facility] in [facility]. In the emergency department at [place] patient was found to be tachycardic and febrile on initial evaluation he was additionally complaining of shortness of breath at that time. His work-up he received labs, chest x-ray, UA, COVID test and a CT of his abdomen with contrast as well as a D-dimer. He is found to have a lactate of 1.[address] demonstrated intraperitoneal and retroperitoneal free air along with dilated fluid and air-filled loops of small bowel left consistent with ileus. The patient was fluid resuscitated and his tachycardia responded well to this. The case was then discussed with Dr. Dean rangel at [facility] and the patient was sent in transfer. [address] an NG tube however the patient had significant difficulty with this placement and the patient developed tachycardia to a rate of 176 after placement of the NG tube so it was removed before he was transferred. After evaluating the patient in the emergency department. [facility] patient corroborates the story stating that he began feeling unwell at 4 AM this morning. He states that he vomited once at [facility] after an attempt was made to place an NG tube. However he has had low-grade nausea, fever and a general sense of malaise. He denies excessive drain output, abdominal pain, chest pain or shortness of breath. PMH PSH Past Medical History: Diagnosis Date ??? A-fib ([facility]) ablation x2 ??? Ileostomy in place ([facility]) 2020 ??? 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 The patient does quite well with his ileostomy. He did have resiting of his ileostomy due to ahernia and he now has a recurrent hernia, but it is not a problem. No past surgical history on file. Social History Family history Social History Tobacco Use ??? Smoking status: Never Passive exposure: Never ??? Smokeless tobacco: Never Substance Use Topics ??? Alcohol use: Not on file No family history on file. Medications Medications Prior to Admission Medication Sig Dispense Refill Last Dose ??? acetaminophen (TYLENOL) 500 mg tablet Take 2 Tablets by mouth every 6 hours as needed for Pain. ??? ADVAIR DISKUS 250-50 mcg/dose diskus inhaler ??? HYDROmorphone (DILAUDID) 2 mg tablet Take 1 Tablet by mouth every 4 hours as needed for Pain. Daily Max: 12 mg 10 Tablet 0 ??? niacin (NICOTINIC ACID) 100 mg tablet Take 1 Tablet by mouth 2 times daily. Allergies Allergies Allergen Reactions ??? Nsaids (Non-Steroidal Anti-Inflammatory Drug) Anaphylaxis ??? Ambien [Zolpidem] Sleep walking/ driving Review of Systems: A ten point review of systems was performed and was negative except for pertinent positives noted in the HPI Last Meal: Objective/Physical Exam: VS: Patient Vitals for the past 8 hrs: BP Pulse Heart Rate Resp Temp SpO2 O2 Device 03/23/23 0022 130/69 -- 92 BPM 16 37.6 ??C (99.7 ??F) 97 % None 03/22/232228 132/87 94 94 BPM 12 37.4 ??C (99.4 ??F) 96 % -- Pain: Patient Vitals for the past 8 hrs: Numeric Pain Level (Scale 1-10) 03/22/232228 4 ECG: N/A. Exam: General Appearance: fatigued, mild distress, Appears ill Lung: clear to auscultation bilaterally Heart: regular rate and rhythm, S1, S2 normal, no murmur, click, rub or gallop Abdomen: Abdomen is soft, nontender, mildly distended and tympanitic with Extremities: all extremities warm and well perfused radial aspect of left wrist has small wound with pustule and surrounding erythema and induration at the site of previous IV placement consistent with thrombophlebitis versus cellulitis. Skin: Skin color, temperature, turgor normal. No rashes or lesions Incision(s)/Wound(s): clean, dry, intact no surrounding erythema or warmth to surgical sites, appear noninfected Pressure Ulcer Present on admission? No Data Review: Transfer documents from [facility] Labs: I have personally reviewed CBC: Lab Results Component Value Date WBC 5.94 03/22/2023 RBC 3.62 (L) 03/22/2023 HGB 10.5 (L) 03/22/2023 HCT 29.8 (L) 03/22/2023 MCV 82 03/22/2023 MCH 29.0 03/22/2023 MCHC 35.2 03/22/2023 PLT 216 03/22/2023 NEUTROABS 4.78 03/22/2023 BMP: Lab Results Component Value Date NA 134 (L) 03/22/2023 K 4.5 03/22/2023 CL 109 03/22/2023 CO2 19 (L) 03/22/2023 BUN 10 03/22/2023 CREATININE 0.67 03/22/2023 CALCIUM 7.1 (L) 03/22/2023 MG 2.1 03/20/2023 LABALBU 4.3 03/20/2023 LFT: Lab Results Component Value Date TBIL 1.4 (H) 03/20/2023 ALKPHOS 48 03/20/2023 AST 43 03/20/2023 ALT 21 03/20/2023 Lactate 0.6 Assessment Active Hospital Problems Diagnosis ??? *Abdominal pain Priority: Medium ??? Postoperative ileus ([facility]) Priority: Medium Patient is a 53-year-old male with a history of Crohn's disease status post perineal prostatectomy on 03/18/2023 who presents to [facility] in transfer from [facility] due to postoperative ileus and fever of unknown origin. On evaluation at [facility] the patient has a soft, nontender, mildly distended abdomen. His surgical incisions do not appear infected. His drain is putting out small amounts of serosanguineous fluid. He does have a site on his radial aspect of his right wrist where therewas prior IV placement which is warm and erythematous with a small pustule at the IV site as well as surrounding erythema consistent with cellulitis versus thrombophlebitis. Pt rigorous on exam as wel l. Patient's laboratory assessment demonstrates normal white blood cell count of 5.9, H&H of 10.5 and 29.8 down from discharge yesterday at 14.0 and 39.8. Lactate 0.6. presentation of significantfever with tachycardia to 120's at OSH concerning for infection warranting broad spectrum abx converge. Problems/Plan: Postoperative ileus, postoperative fever - NPO - mIVF - anti emetics - NG tube if emesis -Labs including CBC, CMP, lactate, blood cultures -Broad spectrum IVabx initiated. Bending blood cultures pending Pt staffed with Dr. Moran Admission status Inpatient admission due to anticipated duration of hospitalization is two midnights or greater due to Postoperative fever, ileus. MOOK CUEVA DO 03/23/2023 0:54 documented in this encounter Consult Notes * Anat Berg MD - 03/24/2023 1035 EDT Images from the original note were not included. Surgical H+P Admission Admit Date: 03/22/23 Date of Service: 03/24/2023 Hospital day: LOS: 2 days Chief Complaint: Fever HPI: Mic Argueta is a 53 y.o. male with a history of atrial fibrillation and ulcerative colitis who underwent a perineal proctectomy on 03/18/23 and subsequently developed fever, tachycardia, and worsening abdominal pain prompting re-admission on 03/22/23. Since that time, the pt has been febrile to 38.4 and has 2x blood cultures (+) for MSSA. He has been undergoing IV antibiotic therapy. During this admission, it was noticed that the pt has an area of painful swelling on his left forearm at the site of a peripheral IV placement during his initial admission. The pt states it is painful, not tremendously so but uncomfortable at about a 3/10, and has had some pus come out once when it spontaneously drained with inflation of a blood pressure cuff. He also notes his left hand feelsspongy. PMH PSH Past Medical History: Diagnosis Date ??? A-fib ([facility]) ablation x2 ??? Ileostomy in place ([facility]) 2020 ??? 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 The patient does quite well with his ileostomy. He did have resiting of his ileostomy due to ahernia and he now has a recurrent hernia, but it is not a problem. No past surgical history on file. Social History Family history Social History Tobacco Use ??? Smoking status: Never Passive exposure: Never ??? Smokeless tobacco: Never Substance Use Topics ??? Alcohol use: Not on file No family history on file. Medications Medications Prior to Admission Medication Sig Dispense Refill Last Dose ??? acetaminophen (TYLENOL) 500 mg tablet Take 2 Tablets by mouth every 6 hours as needed for Pain. ??? ADVAIR DISKUS 250-50 mcg/dose diskus inhaler ??? HYDROmorphone (DILAUDID) 2 mg tablet Take 1 Tablet by mouth every 4 hours as needed for Pain. Daily Max: 12 mg 10 Tablet 0 ??? niacin (NICOTINIC ACID) 100 mg tablet Take 1 Tablet by mouth 2 times daily. Allergies Allergies Allergen Reactions ??? Nsaids (Non-Steroidal Anti-Inflammatory Drug) Anaphylaxis ??? Ambien [Zolpidem] Sleep walking/ driving Review of Systems: A ten point review of systems was performed and was negative except for pertinent positives noted in the HPI Last Meal: Objective/Physical Exam: VS: Patient Vitals for the past 8 hrs: BP Resp Temp SpO2 O2 Device 03/24/23 1026 137/84 18 36.8 ??C (98.2 ??F) 98 % None 03/24/23 0700 -- -- -- -- None 03/24/23 0502 102/73 18 37.2 ??C (98.9 ??F) 100 % -- ECG: Exam: General Appearance: alert, cooperative, no distress Lung: non labored breathing Heart: regular rate and rhythm Abdomen: Soft, mildly tender to the LLQ extending infraumbilically, ostomy bag in place over RLQ Neck: supple, symmetrical, trachea midline, no adenopathy and no JVD Extremities: warm, atraumatic, elevated pustule over L ulnar aspect of distal forearm with 4-6 cm area of induration tracking proximally, edema over ulnar aspect of hand from 3rd-5th digits (picturedbelow) Pulses: + radial and ulnar pulses bilaterally Skin: Skin color, temperature, turgor normal. No rashes or lesions except as detailed in extremities component of physical exam Incision(s)/Wound(s): clean, dry, intact Data Review: I have independently visualized the imaging CT ABDOMEN PELVIS W CONTRAST Result Date: 03/23/2023 1. No adverse interval change. 2. Decreased retroperitoneal and intraperitoneal gas. 3. Extensive postprocedural change following recent proctectomy. 4. Remote colectomy, end ileostomy, and additional nonacute findings above. [id number] CT ABDOMEN PELVIS W CONTRAST Result Date: 03/20/2023 1. Expected postoperative changes in the abdomen and pelvis, status post proctectomy. No organized collection or unexpected acute inflammatory changes in the abdomen or pelvis. 2. Right abdominal endileostomy, status post remote total colectomy. 3. Prior bilateral inguinal hernia repair and posterior L5-S1 fusion. [id number] CT ANGIO CHEST PE PROTOCOL Result Date: 03/20/2023 No evidence of pulmonary emboli or other significant abnormality [id number] FL CYSTOGRAM Result Date: 03/19/2023 No evidence of leak or fistula [id number] Labs: I have personally reviewed CBC: Lab Results Component Value Date WBC 5.82 03/24/2023 RBC 4.14 (L) 03/24/2023 HGB 11.8 (L) 03/24/2023 HCT 33.5 (L) 03/24/2023 MCV 81 03/24/2023 MCH 28.5 03/24/2023 MCHC 35.2 03/24/2023 PLT 203 03/24/2023 NEUTROABS 4.38 03/24/2023 BMP: Lab Results Component Value Date NA 135 (L) 03/24/2023 K 4.4 03/24/2023 CL 99 03/24/2023 CO2 27 03/24/2023 BUN 13 03/24/2023 CREATININE 0.82 03/24/2023 CALCIUM 8.0 (L) 03/24/2023 MG 2.1 03/20/2023 LABALBU 4.3 03/20/2023 Cardiac markers: Lab Results Component Value Date TROPONINI <0.034 03/20/2023 LFT: Lab Results Component Value Date TBIL 1.4 (H) 03/20/2023 ALKPHOS 48 03/20/2023 AST 43 03/20/2023 ALT 21 03/20/2023 U/A: Lab Results Component Value Date CLARITYU Clear 03/24/2023 LABSPEC 1.037 (H) 03/24/2023 PHUR 6.0 03/24/2023 GLUCOSEU Negative 03/24/2023 BILIRUBINUR Negative 03/24/2023 KETONES 3+ (AA) 03/24/2023 BLOODU 3+ (A) 03/24/2023 PROTEINUA 1+ (A) 03/24/2023 Assessment 53 y.o. male with history of atrial fibrillation and ulcerative colitis s/p total colectomy with ileostomy (2012) and perineal proctectomy on 03/18/23 now with MSSA bacteremia and thrombophlebitis laurie left UE peripheral IV site. Plan: - obtain venous duplex ultrasonographic imaging of the site - recommend peripheral intravenous catheter removal from left arm and continuing antibiotics - please page with questions #[id number] VTE Prophylaxis: Service not responsible for VTE therapy MAHAD JAMES MD 03/24/2023 10:49 and Anat Berg MD fellow Associated attestation - Maximus Ledesma MD - 03/25/2023 0911 EDT Attestation statement: I performed or was present during the nieves or critical portions of the visit and participated in the management of the patient. I agree with the findings and plan of care documented in the resident's/fellow's note. documented in this encounter ED Notes * Jazmine Capone RN - 03/23/2023 0021 EDT Report called to MR6 RN, pt ready to move * Carly Martins MD - 03/22/2023 2303 EDT Emergency Department Visit This note was created and authored by Carly Martins MD working under the supervision of Vitaliy Oliva IV, MD. This documentation is recorded by Heike Christopher acting as Scribe under the direction and presence of Carly Martins MD and Vitaliy Oliva IV, MD. Carly Martins MD and Vitaliy Oliva IV, MD: We personally performed the services recordedby the scribe in our presence. We confirm the scribe's documentation has been reviewed by us to accurately and completely record our work, treatment, procedures, and medical decision making. Medical Decision Making Relevant Data as of 03/23/23 0108 Sat Mar 22, 2023 2316 [Transfer from [facility], ileostomy, fever, chills ulcerative colitis, A-fib] Mildly tender, not septic [WF] 2318 Patient is a 53-year-old male with past medical history significant for UC, s/p elective proctectomy done approximate 2 days ago here. Course complicated by rapid response and short ICU stay presents emergency department for concern for ileus. Patient was subsequently discharged yesterday backat his baseline. Normal diet. He states this morning he woke up and had a fever to 102. Chills, nausea and left-sided abdominal pain. He states that he has had dark output from his ileostomy and gas.Expected drainage from his rectum s/p surgery. He went to [place] where they did some imaging that was concerning for ileus. Upon evaluation, patient is lying in bed. Afebrile. BP 132/87. Regular rate and rhythm. Normal workof breathing. Satting at 96 send on room air. Abdomen soft and tender to palpation on left side. Ostomy in place. JOHAN drainage with serosanguineous fluid in place. Differential concerning for ileus, surgical site infection, SBO, however low suspicion at this time. Work-up included lab work. At this time no need for repeat imaging given that was imaged at outsidehospital. Patient given Tylenol and fluids. Patient ultimately admitted to surgery under the care of Dr. Moran further care management. [LAVON] 2321 Hemoglobin(!): 10.5 Hemoglobin dropped 4 points since yesterday. [LAVON] 2321 Lactic Acid: 0.6 [LAVON] Relevant Data User Index [LAVON] Carly Martins MD [WF] Vitaliy Oliva IV, MD Laboratory data was reviewed. Medical Decision Making Abdominal pain: acute illness or injury Amount and/or Complexity of Data Reviewed Labs: Decision-making details documented in ED Course. Risk Prescription drug management. Decision regarding hospitalization. Final diagnoses: Abdominal pain Disposition: Admitted Chief complaint: Fever HPI Juve Argueta is a 53 y.o. male with a history of UC s/p total abdominal colectomy and retained rectalstump s/p elective perianal proctectomy (performed 03/18/[address] Flores) who presents to the ED via EMS as a transfer from [place] for fever. Patient reports that he was doing well post-op following his proctectomy, was discharged yesterday, and then awoke at 0430 this morning with cold sweats, a fever of 102.5F, and 4/10 pain in the left abdomen. He explains that he was seen at [place] where he had a CT and x-rays that were concerning for ileus and possible block. Patient does state that his symptoms feel similar to when he had ileus in the past. Otherwise, patient reports that his ostomy output this morning was black and mostly gas, which he was not told was something to be expected. He says the next output was green in color, and both were lower volume than normal. His urine wasalso brown in color this morning. History was provided by: Patient Records reviewed include: Surgery discharge summary from 03/21/23 (Dr. James and Dr. Flores).Patient's surgery was performed without immediate complication. On POD #2, patient became acutely tachypneic and tachycardic with shortness of breath, chest pain, and low volume hemoptysis. He had CTA chest, CT A/P, and TANO obtained were all unremarkable. Patient was transferred to the SICU and hadspontaneous resolution of his symptoms. Patient's pertinent PMH, FH, SH were reviewed and edited as necessary. Nursing notes reviewed. A medical screening exam was performed. Physical Exam BP 130/69 (BP Cuff Location: Left arm, BP Patient Position: Semi fowlers) Pulse 94 Temp 37.6 ??C (99.7 ??F) (Oral) Resp 16 Ht 175.3 cm (69) Wt 76.2 kg (168 lb) SpO2 97% BMI 24.81 kg/m?? Physical Exam Constitutional: Lying in bed in no acute distress. Head: Atraumatic, normocephalic Eyes: Pupils equal and reactive to light, no scleral icterus Mouth: Moist oral mucosa without apparent lesions Neck: Full ROM Cardiovascular: Regular rate and rhythm. Extremities warm and well perfused, no peripheral edema. Respiratory: Normal respiratory effort. Satting at 96 send on room air. Abdomen: Soft and tender to palpation on left side. Ostomy in place. JOHAN drainage with serosanguineous fluid in place. Skin: No overt rashes on exposed skin Musculoskeletal: Moving extremities spontaneously; no gross deformities Neuro: Grossly neurologically intact with normal speech Psych: No agitation or overt thought disorder Procedures Procedures Associated attestation - Vitaliy Oliva MD - 03/23/2023 0855 EDT ATTENDING ATTESTATION IVitaliy IV, performed a history and exam of this patient and discussed the case withthe resident. I have reviewed and edited this note, and the documentation is consistent with my findings, assessment and plan. I fully participated in the medical decision making. documented in this encounter Miscellaneous Notes * Plan of Care - Latanya Dumont - 03/27/2023 0918 EDT Problem: Daily Care Plan Goals Goal: Care Plan Documentation Flowsheets (Taken 03/27/2023 0806) Goal This Shift: Pt will remain comfortable this shift Data: Assumed care of pt at 0730. Pt ambulating independently. Rates pain 0/10, VSS on RA. Empties ileostomy independently. Action: Flushed IV, administered meds per eMAR, performed assessment. Clustered care to promote rest. Response: Pt resting in bed, watching tv. Call argueta within reach, able to make needs known. Latanya Tim 03/27/2023 9:19 * Plan of Care - Karon Ramires RN - 03/27/2023 0220 EDT Problem: Daily Care Plan Goals Goal: Care Plan Documentation Outcome: Ongoing Flowsheets (Taken 03/26/20231952) Area of Focus: Sleep Goal This Shift: pt will get adequate sleep Data: pt admitted for MSSA bacteremia, VSS on RA. Pt c/o no pain, JOHAN drain intact to R. Buttock--very minimal bloody output. Pt's goal to get adequate sleep Action: medicated pt per eMAR. Clustered care to promote rest. Changed JOHAN drain sponge and providedileostomy supplies to pt. Response: pt has been resting well, no pain still, ambulated lots independently in hallway. Pt independent w/ changing ileostomy bag. Pt appears to be sleeping comfortably in bed, call argueta in reach,WCTM. KARON RAMIRES RN 03/27/2023 2:21 * Plan of Care - Valencia Garcia RN - 03/26/2023 1522 EDT Problem: Daily Care Plan Goals Goal: Care Plan Documentation Outcome: Ongoing Flowsheets (Taken 03/26/2023 0901) Area of Focus: Pain/ Comfort Goal This Shift: Pt will remain comfortable Note: Data: Pt had perineal proctectomy 03/18. JOHAN drain present in R-buttocks. Rating pain up to 3/10. Ambulating independently. Voiding without issues and empties ileostomy independently Action: Scheduled Tylenol offered. IV abx administered as ordered. Encouraged pt to ambulate. Response: Pt reports pain as tolerable. Resting comfortably throughout shift. Using call argueta appropriately. VALENCIA GARCIA RN 03/26/2023 15:20 * Plan of Care - Niya Demarco RN - 03/26/2023 0115 EDT Problem: Daily Care Plan Goals Goal: Care Plan Documentation Flowsheets (Taken 03/25/2023 1920) Area of Focus: Sleep Goal This Shift: promote rest Data: pt ind in room. Reporting minimal pain in abdomen. Goal is to promote rest overnight Action: administered meds per MAR. Promoted a restful environment/ clustered care Response: pt is currently resting comfortably, able to make needs known NIYA DEMARCO RN 03/26/2023 1:15 * Plan of Care - Xochilt Bob RN - 03/25/2023 1755 EDT Problem: Daily Care Plan Goals Goal: Care Plan Documentation Flowsheets (Taken 03/25/2023 0929 by Venice Gonzalez, MATTHEW) Area of Focus: GI//Elimination Goal This Shift: Pt will void w/out retention Note: Data: Pt s/p perineal proctectomy on 03/18. Incision C/D/I. JOHAN drain remains in place. Continues onIV abx. Denies abd pain. Ambulating independetly. Continues with urinary retention s/p shin removal. Action: Straight cath x1 for 575mL. Monitor I&Os & PVRs. Hourly rounding. Response: Pt uses call agrueta to make needs known. XOCHILT BOB RN 03/25/2023 17:55 * Plan of Care - Fariba Larry - 03/25/2023 0912 EDT Data: Assumed care of pt at 0700. Pt is POD 7 following perineal proctectomy, admitted for fever, n/v, abdominal pain. Pt is AxO x 3, independent in the room. Vital signs stable. Pt on RA, independent with ileostomy and DTV urine at 1230. Action: Assessment performed, vitals monitored Q4. Pt ambulated in room and around unit independently. Complaining of increased pain in the left upper extremity, heat pack applied. PVR at 1245, pt reports bladder pain. Primary RN completed straight cath, 575cc output. Response: Pt tolerates ambulation well, rings appropriately, and agrees with the plan on care. Pt DTV at 1930. FARIBA LARRY 03/25/2023 9:12 * Plan of Care - Niya Demarco RN - 03/25/2023 0146 EDT Problem: Daily Care Plan Goals Goal: Care Plan Documentation Flowsheets (Taken 03/24/2023 1930) Area of Focus: Sleep Goal This Shift: promote rest Data: pt reporting pain as high as 3/10 in abdomen. Ind in room. Goal is to promote rest Action: administered meds per MAR. Promoted a restful environment/ clustered care Response: pt is currently resting comfortably, able to make needs known. NIYA DEMARCO RN 03/25/2023 1:47 * Plan of Care - Xochilt Bob RN - 03/24/2023 8443 EDT Problem: Daily Care Plan Goals Goal: Care Plan Documentation Flowsheets (Taken 03/24/2023 0700) Area of Focus: Pain/ Comfort Goal This Shift: no n/v, pain will be tolerable Note: Data: Pt admitted for fever, chills, and abdominal pain. +MSSA bacteremia, currently on IV abx. Pt s/p perineal proctectomy on 03/18, incision with sutures C/D/I. JOHAN drain remains in place. Infected IV site to left wrist is open to air. Rates pain up to 3/10. Ostomy appliance remains intact. Shin intact. Ambulating independently. IVF infusing. Action: Schedule meds given, see eMar. Dressing change and cleanse done to incision/JOHAN drain per orders. Encouraged mobility as tolerated. Hourly rounding. Response: Pt resting comfortably. States symptoms have improved today. Uses call argueta to make needsknown. XOCHILT BOB RN 03/24/2023 14:27 * Plan of Care - Princess Baron RN - 03/24/2023 0597 EDT Problem: PAIN Goal: Patient's pain/discomfort is manageable/tolerable Outcome: Ongoing Data: Admitted for chills/febrile abdominal pain, N/V. Action: A/OX4. Prn Dilaudid administered x 2 for LLQ abdominal pain . Low grade febrile. Scheduled Tylenol given. JOHAN drain to left buttock from recent proctectomy with output of 15ML serosanguinous exudate. Ostomy pouch to LLQ with dark liquid stool. Shin intact and draining clear yellow urine . IV ABT and continuous plasmalyte @ 115ml/hr. Warm compress to Firm to touch raise/swollen area to left arm with a small pustule from previous infiltrated IV. Pouch emptied and cleaned. Prn zofran for nausea without emesis . Response: Pt reported decreased pain at 4. Resting @ this time. PRINCESS LORAINE RN 03/24/2023 5:46 * Plan of Care - Nichol Lundberg RN - 03/23/2023 1812 EDT Problem: Daily Care Plan Goals Goal: Care Plan Documentation Flowsheets (Taken 03/23/2023 0845) Area of Focus: Pain/ Comfort Goal This Shift: no n/v, pain will be tolerable Note: Data: HD #4 admitted for post op ileus. A&Ox3. Pt c/o pain in LLQ. Denies N/V. Continues to be intermittently febrile w/ chills. Otherwise, VSS. Action: medicated per mar. Provided ostomy and shin care as needed.Offered PRN pain and antinauseameds as needed. Plasmalyte running at 115 ml/hr. Response: Pt currently resting in bed, endorses 4/10 pain to LLQ. Denies further needs. Calls appropriately. NCIHOL LUNDBERG RN 03/23/2023 18:12 * Plan of Care - Francine Garza - 03/23/2023 1727 EDT 03/23/231726 Discharge Delay Risk Assessment 1. Disease/Medical Condition 5 2. Hospitalization 1;2 Major Barrier day total 1-6 3 Risk for Delayed Discharge At Risk For Delayed Discharge Minor or major discharge risk delay(s) present? No discharge barriers identified Does the patient meet criteria to be escalated? No Data gathered from chart review. Complete case management assessment to follow. * Plan of Care - Princess Baron RN - 03/23/2023 0716 EDT Problem: PAIN Goal: Patient's pain/discomfort is manageable/tolerable Outcome: Ongoing Data: Admitted for chills/febrile abdominal pain, N/V. Action: A/OX4. Prn Dilaudid administered x 2 for LLQ abdominal pain . Low grade febrile. Tylenolgiven. JOHAN drain to left buttock from recent proctectomy with output of 30 ML serosanguinous exudate. Ostomy pouch to LLQ with dark liquid stool. Shin intact and draining clear yellow urine . IV ABT and continuous plasmalyte @ 115ml/hr. Firm to touch raise/swollen area to left arm with a small pustule from previous infiltrated IV. said that it is thrombophlebitis. Pouch emptied and cleaned. Response: Pt reported decreased pain at 4. Resting @ this time. PRINCESS LORAINE RN 03/23/2023 7:16 documented in this encounter Plan of Treatment Scheduled Referrals Name Type Priority Associated Diagnoses Order Schedule PROVIDER FOLLOW-UP INSTRUCTIONS Outpatient Referral Routine Ordered: 03/27/2023 PROVIDER FOLLOW-UP INSTRUCTIONS Outpatient Referral Routine Ordered: 03/27/2023 PROVIDER FOLLOW-UP INSTRUCTIONS Outpatient Referral Routine Ordered: 03/27/2023 documented as of this encounter Procedures Procedure Name Priority Date/Time Associated Diagnosis Comments BACTERIAL CULTURE, BLOOD Routine 03/25/2023 11:11 EDT BACTERIAL CULTURE, BLOOD Routine 03/25/2023 11:11 EDT COMPLETE BLOOD COUNT AND DIFFERENTIAL Routine 03/25/2023 11:08 EDT BASIC METABOLIC PANEL (BMP) Routine 03/25/2023 11:08 EDT BACTERIAL CULTURE, BLOOD Routine 03/24/2023 15:54 EDT BACTERIAL CULTURE, BLOOD Routine 03/24/2023 15:48 EDT US UPPER VENOUS DUPLEX STAT 03/24/2023 12:12 EDT URINE CHEMICAL (DIP) & SEDIMENT (MICRO) WITH REFLEX TO CULTURE Routine 03/24/2023 9:29 EDT COMPLETE BLOOD COUNT AND DIFFERENTIAL Routine 03/24/2023 7:05 EDT BASIC METABOLIC PANEL (BMP) Routine 03/24/2023 7:[address] ABDOMEN PELVIS W CONTRAST Routine 03/23/2023 16:17 EDT ZZCOVID-19 TEST [facility] PCR Today 03/23/2023 8:32 EDT COVID-19 TESTING Routine 03/23/2023 8:32 EDT ZZHN INFLUENZA A AND B, RSV PCR Routine 03/23/2023 8:32 EDT COMPLETE BLOOD COUNT AND DIFFERENTIAL Routine 03/23/2023 5:49 EDT BASIC METABOLIC PANEL (BMP) Routine 03/23/2023 5:49 EDT BACTERIAL CULTURE, BLOOD Routine 03/22/2023 23:08 EDT BACTERIAL CULTURE, BLOOD Routine 03/22/2023 23:07 EDT HOLD SST Routine 03/22/2023 22:42 EDT HOLD BLUE TOP Routine 03/22/2023 22:42 EDT LACTIC ACID Routine 03/22/2023 22:39 EDT COMPLETE BLOOD COUNT AND DIFFERENTIAL STAT 03/22/2023 22:39 EDT BASIC METABOLIC PANEL (BMP) STAT 03/22/2023 22:[address] OUTSIDE IMAGES ABDOMEN PELVIS Routine 03/22/2023 11:15 EDT XR OUTSIDE IMAGES CHEST Routine 03/22/2023 11:14 EDT documented in this encounter Results * BACTERIAL CULTURE, BLOOD (03/25/2023 11:11 EDT) Organism ID No Growth at 5 days 03/30/2023 11:31 EDT [facility] Blood VENOUS BLOOD / Unknown Venipuncture / Unknown 03/25/2023 11:11 EDT 03/25/2023 11:20 EDT Fe Hoffman MD MICROBIOLOGY - GENER AL ORDERABLES [facility] [address] [place] [address] * BACTERIAL CULTURE, BLOOD (03/25/2023 11:11 EDT) Organism ID No Growth at 5 days 03/30/2023 11:31 [facility] Blood VENOUS BLOOD / Unknown Venipuncture / Unknown 03/25/2023 11:11 EDT 03/25/2023 11:20 EDT Fe Hoffman MD MICROBIOLOGY - GENER AL ORDERABLES [facility] [address] [place] [address] * (ABNORMAL) COMPLETE BLOOD COUNT AND DIFFERENTIAL (03/25/2023 11:08 EDT) WBC 4.28 4.00 - 10.40 K/cmm 03/25/2023 11:26 [facility] RBC 4.12(L) 4.36 - 5.78 M/cmm 03/25/2023 11:26 [facility] Hemoglobin 11.9(L) 13.8 - 17.3 g/dL 03/25/2023 11:26 [facility] HCT 32.4(L) 39.5 - 50.2 % 03/25/2023 11:26 [facility] MCV 79(L) 81 - 95 fL 03/25/2023 11:26 [facility] MCH 28.9 27.6 - 33.0 pg 03/25/2023 11:26 [facility] MCHC 36.7(H) 32.8 - 36.4 g/dL 03/25/2023 11:26 [facility] RDW-CV 12.0 <14.2 % 03/25/2023 11:26 [facility] RDW-SD 34.1 <46.0 fl 03/25/2023 11:26 [facility] PLT 246 141 - 377 K/cmm 03/25/2023 11:26 [facility] MPV 9.4(L) 9.5 - 12.7 fL 03/25/2023 11:26 [facility] % Neutrophils 66.5 % 03/25/2023 11:26 [facility] % Lymphocytes 16.6 % 03/25/2023 11:26 [facility] % Monocytes 12.4 % 03/25/2023 11:26 [facility] % Eosinophils 3.5 % 03/25/2023 11:26 [facility] % Basophils 0.5 % 03/25/2023 11:26 [facility] % Immature Grans 0.5 % 03/25/20 11:26 [facility] Absolute Neutrophils 2.85 2.20 - 8.85 K/cmm 03/25/2023 11:26 [facility] Absolute Lymphocytes 0.71(L) 1.09 - 3.30 K/cmm 03/25/2023 11:26 [facility] Absolute Monocytes 0.53 0.10 - 0.80 K/cmm 03/25/2023 11:26 [facility] Absolute Eosinophils 0.15 0.03 - 0.61 K/cmm 03/25/2023 11:26 [facility] ABS Basophils 0.02 0.01 - 0.11 K/cmm 03/25/2023 11:26 [facility] Absolute Immature Grans 0.02 0.00 - 0.06 K/cmm 03/25/2023 11:26 [facility] Type of Differential: Auto 03/25/2023 11:26 [facility] Blood VENOUS BLOOD / Unknown Venipuncture / Unknown 03/25/2023 11:08 EDT 03/25/2023 11:20 EDT Moko Cueva DO PACKAGES & DNA PROBE ORDERABLES [facility] [address] [place] [address] * (ABNORMAL) BASIC METABOLIC PANEL (BMP) (03/25/2023 11:08 EDT) Sodium 134(L) 136 - 145 mmol/L 03/25/2023 11:47 T [facility] Potassium 3.3(L) 3.5 - 5.0 mmol/L 03/25/2023 11:47 [facility] Chloride 99 96 - 110 mmol/L 03/25/2023 11:47 EDT [facility] CO2 Total 24 22 - 32 mmol/L 03/25/2023 11:47 [facility] Anion Gap 11 5 - 14 mmol/L 03/25/2023 11:47 [facility] Glucose 147(H) 70 - 99 mg/dl 03/25/2023 11:47 [facility] Calcium 8.3(L) 8.5 - 10.5 mg/dL 03/25/2023 11:47 [facility] BUN 11 10 - 26 mg/dL 03/25/2023 11:47 [facility] Creatinine 0.66 0.66 - 1.25 mg/dL 03/25/2023 11:47 [facility] eGFR 111 >60 mL/min/1.73 m2 03/25/2023 11:47 T [facility] Blood VENOUS BLOOD / Unknown Venipuncture / Unknown 03/25/2023 11:08 EDT 03/25/2023 11:19 EDT Mook Cueva DO CHEMISTRY & BLOOD GA S ORDERABLES [facility] [address] [place] [address] * BACTERIAL CULTURE, BLOOD (03/24/2023 15:54 EDT) Organism ID No Growth at 5 days 03/29/2023 16:31 EDT [facility] Blood VENOUS BLOOD / Unknown Venipuncture / Unknown 03/24/2023 15:54 EDT 03/24/2023 16:16 EDT Fransisco Harmon MD MICROBIOLOGY - GENER AL ORDERABLES [facility] [address] [place] [address] * BACTERIAL CULTURE, BLOOD (03/24/2023 15:48 EDT) Organism ID No Growth at 5 days 03/29/2023 16:31 EDT [facility] Blood VENOUS BLOOD / Unknown Venipuncture / Unknown 03/24/2023 15:48 EDT 03/24/2023 16:16 EDT Fransisco Harmon MD MICROBIOLOGY - GENER AL ORDERABLES Performing Organization Address [facility] Co de Phone Number [facility] [address] [place] [address] * US UPPER VENOUS DUPLEX (DVT) LEFT (03/24/2023 12:12 EDT) Anatomical Region Laterality Modality Vascular Ultrasound Narrative 03/25/2023 7:44 EDT ?The left cephalic vein and branches in the distal forearm through the dorsal hand and thumb were compressible but dilated and with a large donut shaped avascular component of mixed echogenicity indicative of ??infection. Clinical correlation suggested. ?Preliminary results to Dr. Myles at 12:00 on 03-24-23 ?No evidence of deep or superficial venous thrombosis in the left upper extremity. Left Upper Superficial Venous The left cephalic vein in the distal forearm through the dorsal hand and thumb was compressible but dilated and with a large donut shaped avascular portion of mixed echogenicity . Venous HPI and Indications LUE abscess, poss suppurative thrombophlebitis Venous Past Medical History S/P rectal surgery with left wrist IV Left Upper Venous Other The left internal jugular, brachiocephalic, subclavian, cephalic, axillary, basilic, and brachial veins demonstrate normal Doppler flow/waveforms and no sonographic evidence of thrombus. Anat Berg MD IMG US VASCULAR ORDE YESSICA * (ABNORMAL) URINE CHEMICAL (DIP) & SEDIMENT (MICRO) WITH REFLEX TO CULTURE (03/24/2023 9:29 EDT) Color UA Yellow Colorless, Yellow 03/24/2023 9:48 [facility] Clarity UA Clear Clear 03/24/2023 9:48 [facility] Glucose UA Negative Negative mg/dL 03/24/2023 9:48 [facility] Bilirubin UA Negative Negative 03/24/2023 9:48 [facility] Ketones UA 3+(AA) Negative 03/24/2023 9:48 [facility] Specific [place], Urine 1.037(H) 1.001 - 1.035 03/24/2023 9:48 [facility] Comment:Urine Specific Gravi ty results greater than 1.035 suggest possible interference from glucose or radiographic dye. Blood UA 3+(A) Negative 03/24/2023 9:48 [facility] Urobilinogen UA Normal Normal mg/dL 023 9:48 [facility] Nitrite UA Negative Negative 03/24/2023 9:48 [facility] Leukocyte Esterase UA Negative Negative 03/24/2023 9:48 [facility] Protein UA 1+(A) Negative mg/dL 03/24/2023 9:48 [facility] pH, UA 6.0 4.6 - 8.0 03/24/2023 9:48 [facility] Urine RBC Count, Auto >50(A) 0 - 2 Cells/HPF 03/24/2023 9:48 [facility] Urine WBC Count, Auto 0 - 3 0 - 3 Cells/HPF 03/24/2023 9:48 [facility] Urine Squamous Count, Auto None Seen None Seen Cells/HPF 03/24/2023 9:48 [facility] Urine Hyaline Cast Count, Auto <=10 <=10 Casts/LPF 03/24/2023 9:48 [facility] Urine Bacteria Count, Auto None Seen None Seen Bacteria/HPF 03/24/2023 9:48 EDT [facility] Urine URINE SPECIMEN OBTAINED BY SINGLE CATHETERIZATION OF URINARY BLADDER / Unknown Urine Collect / Unknown 03/24/2023 9:29 EDT 03/24/2023 9:38 EDT Narrative [facility] - 03/24/2023 9:48 EDT NOTE: Reflex to Urine Culture test is not indicated based on Urine Sediment Analysis results. Urine Sediment Analysis results are unreliable on urines that are unrefrigerated for >2 hrs or refrigerated >8 hrs. Fransisco Harmon MD URINALYSIS ORDERABLE S [facility] [address] [place] [address] * (ABNORMAL) COMPLETE BLOOD COUNT AND DIFFERENTIAL (03/24/2023 7:05 EDT) WBC 5.82 4.00 - 10.40 K/cmm 03/24/2023 7:30 [facility] RBC 4.14(L) 4.36 - 5.78 M/cmm 03/24/2023 7:30 [facility] Hemoglobin 11.8(L) 13.8 - 17.3 g/dL 03/24/2023 7:30 [facility] HCT 33.5(L) 39.5 - 50.2 % 03/24/2023 7:30 [facility] MCV 81 81 - 95 fL 03/24/2023 7:30 [facility] MCH 28.5 27.6 - 33.0 pg 03/24/2023 7:30 [facility] MCHC 35.2 32.8 - 36.4 g/dL 03/24/2023 7:30 [facility] RDW-CV 12.0 <14.2 % 03/24/2023 7:30 [facility] RDW-SD 35.5 <46.0 fl 03/24/2023 7:30 [facility] PLT 203 141 - 377 K/cmm 03/24/2023 7:30 EDT [facility] MPV 9.3(L) 9.5 - 12.7 fL 03/24/2023 7:30 [facility] % Neutrophils 75.3 % 03/24/2023 7:30 [facility] % Lymphocytes 9.3 % 03/24/2023 7:30 [facility] % Monocytes 13.2 % 03/24/2023 7:30 [facility] % Eosinophils 0.9 % 03/24/2023 7:30 [facility] % Basophils 0.3 % 03/24/2023 7:30 [facility] % Immature Grans 1.0 % 03/24/20 7:30 [facility] Absolute Neutrophils 4.38 2.20 - 8.85 K/cmm 03/24/2023 7:30 [facility] Absolute Lymphocytes 0.54(L) 1.09 - 3.30 K/cmm 03/24/2023 7:30 [facility] Absolute Monocytes 0.77 0.10 - 0.80 K/cmm 03/24/2023 7:30 [facility] Absolute Eosinophils 0.05 0.03 - 0.61 K/cmm 03/24/2023 7:30 [facility] ABS Basophils 0.02 0.01 - 0.11 K/cmm 03/24/2023 7:30 [facility] Absolute Immature Grans 0.06 0.00 - 0.06 K/cmm 03/24/2023 7:30 [facility] Type of Differential: Auto 03/24/2023 7:30 [facility] Blood VENOUS BLOOD / Unknown Venipuncture / Unknown 03/24/2023 7:05 EDT 03/24/2023 7:17 EDT Mook Cueva DO PACKAGES & DNA PROBE ORDERABLES [facility] [address] [place] [address] * (ABNORMAL) BASIC METABOLIC PANEL (BMP) (03/24/2023 7:05 EDT) Sodium 135(L) 136 - 145 mmol/L 03/24/2023 7:47 EDT [facility] Potassium 4.4 3.5 - 5.0 mmol/L 03/24/2023 7:47 EDT [facility] Chloride 99 96 - 110 mmol/L 03/24/2023 7:47 T [facility] CO2 Total 27 22 - 32 mmol/L 03/24/2023 7:47 [facility] Anion Gap 9 5 - 14 mmol/L 03/24/2023 7:47 [facility] Glucose 90 70 - 99 mg/dl 03/24/2023 7:47 [facility] Calcium 8.0(L) 8.5 - 10.5 mg/dL 03/24/2023 7:47 [facility] BUN 13 10 - 26 mg/dL 03/24/2023 7:47 [facility] Creatinine 0.82 0.66 - 1.25 mg/dL 03/24/2023 7:47 [facility] eGFR 104 >60 mL/min/1.73 m2 03/24/2023 7:47 T [facility] Blood VENOUS BLOOD / Unknown Venipuncture / Unknown 03/24/2023 7:05 EDT 03/24/2023 7:18 EDT Mook Cueva DO CHEMISTRY & BLOOD GA S ORDERABLES [facility] [address] [place] [address] * CT ABDOMEN PELVIS W CONTRAST (03/23/2023 16:17 EDT) Anatomical Region Laterality Modality Body, Abdomen, Pelvis, Abdomen and Pelvis Computed Tomography 03/23/2023 17:0 0 EDT Impressions 03/23/2023 17:00 EDT 1. No adverse interval change. 2. Decreased retroperitoneal and intraperitoneal gas. 3. Extensive postprocedural change following recent proctectomy. 4. Remote colectomy, end ileostomy, and additional nonacute findings above. [id number] Narrative 03/23/2023 17:[address] ABDOMEN PELVIS W CONTRAST ??03/23/2023 3:50 PM Signs and Symptoms/Comments: Fever, intraabdominal infection; Fever, intraabdominal infection; Technique: CT of the abdomen and pelvis was performed following the administration of intravenous contrast. This CT used either dose modulation and/or iterative reconstruction techniques to lower radiation dose. Comparison: 03/20/2023. Findings: Lower chest: No significant finding. Liver: Fatty deposition is noted along the falciform ligament. Gallbladder: No cholelithiasis, wall thickening or regional fat stranding. Bile ducts: No ductal dilation. Spleen: Normal size and morphology. Pancreas: Homogeneous enhancement. Adrenal glands: No thickening or nodularity. Kidneys, ureters, bladder: Subcentimeter hypodensities in each kidney are too small to accurately characterize, but are statistically likely to be benign. No nephrolithiasis or hydronephrosis. Ureters are normal in caliber. A Shin catheter resides in the urinary bladder with nondependent layering gas. Bowel: Oral contrast material extends through a right lower quadrant and ileostomy. The patient is status post colectomy and recent proctectomy (03/18/2023). Extensive soft tissue stranding is redemonstrated in the deep central pelvis. A right gluteal approach drain is again seen with tip in the left pelvis. Peritoneal cavity: Retroperitoneal and intraperitoneal gas are decreased from the prior exam. No collection is identified. Lymph nodes: No adenopathy is identified in the upper abdomen, small bowel mesentery or retroperitoneum. Vascular: There is mild nonaneurysmal atherosclerotic calcification. Abdominal wall: Please see above. Prior bilateral inguinal hernia repair. Musculoskeletal: Prior L5 laminectomy with an L5-S1 posterior spinal fusion. 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 Procedure Note Fidencio Kelley MD - 03/23/2023 CT ABDOMEN PELVIS W CONTRAST 03/23/2023 3:50 PM Signs and Symptoms/Comments: Fever, intraabdominal infection; Fever,intraabdominal infection; Technique: CT of the abdomen and pelvis was performed following theadministration of intravenous contrast. This CT used either dose modulation and/or iterative reconstructiontechniques to lower radiation dose. Comparison: 03/20/2023. Findings: Lower chest: No significant finding. Liver: Fatty deposition is noted along the falciform ligament. Gallbladder: No cholelithiasis, wall thickening or regional fatstranding. Bile ducts: No ductal dilation. Spleen: Normal size and morphology. Pancreas: Homogeneous enhancement. Adrenal glands: No thickening or nodularity. Kidneys, ureters, bladder: Subcentimeter hypodensities in each kidney aretoo small to accurately characterize, but are statistically likely to bebenign. No nephrolithiasis or hydronephrosis. Ureters are normal incaliber. A Shin catheter resides in the urinary bladder with nondependentlayering gas. Bowel: Oral contrast material extends through a right lower quadrant andileostomy. The patient is status post colectomy and recent proctectomy(03/18/2023). Extensive soft tissue stranding is redemonstrated in thedeep central pelvis. A right gluteal approach drain is again seen with tipin the left pelvis. Peritoneal cavity: Retroperitoneal and intraperitoneal gas are decreasedfrom the prior exam. No collection is identified. Lymph nodes: No adenopathy is identified in the upper abdomen, small bowelmesentery or retroperitoneum. Vascular: There is mild nonaneurysmal atherosclerotic calcification. Abdominal wall: Please see above. Prior bilateral inguinal herniarepair. Musculoskeletal: Prior L5 laminectomy with an L5-S1 posterior spinalfusion. 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 IMPRESSION 1. No adverse interval change. 2. Decreased retroperitoneal and intraperitoneal gas. 3. Extensive postprocedural change following recent proctectomy. 4. Remote colectomy, end ileostomy, and additional nonacute findingsabove. [id number] Mahad James MD [facility] [place] * COVID-19 TEST [facility] PCR (03/23/2023 8:32 EDT) Swab NASOPHARYNGEAL STRUCTURE / Unknown Swab / Unknown 03/23/2023 8:32 EDT 03/23/2023 8:36 EDT Mahad James MD MICROBIOLOGY - GENE RAL ORDERABLES Performing Organization Address [facility] Co de Phone Number [facility] [address] [place] [address] * COVID-19 TESTING (03/23/2023 8:32 EDT) Pathologist [facility] COVID-19 rt-PCR Result Negative Negative 03/23/2023 10:36 EDT [facility] Comment: This test has not been FDA cleared or approved. This test has been authorized by FDA under an EUA for use by authorized laboratories. This test has been authorized only for detection of nucleic acid from 2019-nCoV, not for any other viruses or pathogens. This test is only authorized for the duration of the declaration that circumstances exist justifying the authorization of emergency use of in vitro diagnostic tests for detection and/or diagnosis of 2019-nCoV under section 564(b)(1) of Act, 21 U.S.C ?? 360bbb-3(b) (1), unless the authorization is terminated or revoked sooner. Negative results do not preclude 2019-nCoV infection and should not be used as the sole basis for treatment or other patient management decisions. Negative results must be combined with clinical observations, patient history, and epidemiological information. Performed on the [employer] GeneXpert Instrument Performing Lab GeneXpert [facility] 03/23/2023 10:36 EDT [facility] Swab NASOPHARYNGEAL STRUCTURE / Unknown Swab / Unknown 03/23/2023 8:32 EDT 03/23/2023 8:36 EDT Mahad James MD MICROBIOLOGY - GENE RAL ORDERABLES Performing Organization Address [facility] Co de Phone Number [facility] [address] [place] [address] * INFLUENZA A AND B,RSV PCR (03/23/2023 8:32 EDT) FLU A RNA Result (FLARES) Negative Negative 03/23/2023 10:36 EDT [facility] FLU B RNA Result (FLBRES) Negative Negative 03/23/2023 10:36 EDT [facility] RSV RNA Result (RSVRES) Negative Negative 03/23/2023 10:36 EDT [facility] Swab NASOPHARYNGEAL STRUCTURE / Unknown Swab / Unknown 03/23/2023 8:32 EDT 03/23/2023 8:36 EDT Mahad James MD MICROBIOLOGY - [facility] ORDERABLES [facility] [address] [place] [address] * (ABNORMAL) COMPLETE BLOOD COUNT AND DIFFERENTIAL (03/23/2023 5:49 EDT) WBC 5.31 4.00 - 10.40 K/cmm 03/23/2023 6:40 EDT [facility] RBC 4.09(L) 4.36 - 5.78 M/cmm 03/23/2023 6:40 [facility] Hemoglobin 11.8(L) 13.8 - 17.3 g/dL 03/23/2023 6:40 [facility] HCT 32.1(L) 39.5 - 50.2 % 03/23/2023 6:40 [facility] MCV 79(L) 81 - 95 fL 03/23/2023 6:40 [facility] MCH 28.9 27.6 - 33.0 pg 03/23/2023 6:40 [facility] MCHC 36.8(H) 32.8 - 36.4 g/dL 03/23/2023 6:40 [facility] RDW-CV 12.1 <14.2 % 03/23/2023 6:40 [facility] RDW-SD 34.5 <46.0 fl 03/23/2023 6:40 [facility] PLT 201 141 - 377 K/cmm 03/23/2023 6:40 [facility] MPV 9.5 9.5 - 12.7 fL 03/23/2023 6:40 [facility] % Neutrophils 81.7 % 03/23/2023 6:40 [facility] % Lymphocytes 6.8 % 03/23/2023 6:40 [facility] % Monocytes 10.7 % 03/23/2023 6:40 [facility] % Eosinophils 0.2 % 03/23/2023 6:40 [facility] % Basophils 0.2 % 03/23/2023 6:40 [facility] % Immature Grans 0.4 % 03/23/20 6:40 [facility] Absolute Neutrophils 4.34 2.20 - 8.85 K/cmm 03/23/2023 6:40 [facility] Absolute Lymphocytes 0.36(L) 1.09 - 3.30 K/cmm 03/23/2023 6:40 [facility] Absolute Monocytes 0.57 0.10 - 0.80 K/cmm 03/23/2023 6:40 [facility] Absolute Eosinophils 0.01(L) 0.03 - 0.61 K/cmm 03/23/2023 6:40 [facility] ABS Basophils 0.01 0.01 - 0.11 K/cmm 03/23/2023 6:40 [facility] Absolute Immature Grans 0.02 0.00 - 0.06 K/cmm 03/23/2023 6:40 [facility] Type of Differential: Auto 03/23/2023 6:40 [facility] Blood VENOUS BLOOD / Unknown Venipuncture / Unknown 03/23/2023 5:49 EDT 03/23/2023 6:31 EDT Mook Cueva DO PACKAGES & DNA PROBE ORDERABLES [facility] [address] [place] [address] * (ABNORMAL) BASIC METABOLIC PANEL (BMP) (03/23/2023 5:49 EDT) Sodium 132(L) 136 - 145 mmol/L 03/23/2023 7:07 T [facility] Potassium 3.9 3.5 - 5.0 mmol/L 03/23/2023 7:07 [facility] [facility] Chloride 103 96 - 110 mmol/L 03/23/2023 7:07 [facility] CO2 Total 19(L) 22 - 32 mmol/L 03/23/2023 7:07 [facility] Anion Gap 10 5 - 14 mmol/L 03/23/2023 7:07 [facility] Glucose 100(H) 70 - 99 mg/dl 03/23/2023 7:07 [facility] Calcium 7.8(L) 8.5 - 10.5 mg/dL 03/23/2023 7:07 [facility] BUN 9(L) 10 - 26 mg/dL 03/23/2023 7:07 [facility] Creatinine 0.81 0.66 - 1.25 mg/dL 03/23/2023 7:07 [facility] eGFR 105 >60 mL/min/1.73 m2 03/23/2023 7:07 [facility] Blood VENOUS BLOOD / Unknown Venipuncture / Unknown 03/23/2023 5:49 EDT 03/23/2023 6:33 EDT Mook Cueva DO CHEMISTRY & BLOOD GA S ORDERABLES [facility] [address] [place] [address] * (ABNORMAL) BACTERIAL CULTURE, BLOOD (03/22/2023 23:08 EDT) Organism ID Staphylococcus aureus(AA) 03/25/2023 7:22 T [facility] Comment: Detected at 18 hours Susceptible to nafcillin, cephalosporins and other beta lactam antibiotics (mecA gene product absent). [place] morphology consistent with other culture from same site/ source collected on the same day. Specimen tested for 12 gram positive organism identification targets and 3 antibiotic resistance determinant targets, by micro array technology. Staphylococcus aureus is a life threatening infection when found in the blood. It should NOT be considered a contaminant. Staphylococcus aureus bacteremia should be treated with IV antibiotics. Infectious Disease consultation is encouraged. Blood VENOUS BLOOD / Unknown Venipuncture / Unknown 03/22/2023 23:08 EDT 03/22/2023 23:20 EDT Russel Daugherty MD MICROBIOLOGY - GENERAL ORDERABLES Performing Organization Address [facility] Co de Phone Number [facility] [address] [place] [address] * (ABNORMAL) BACTERIAL CULTURE, BLOOD (03/22/2023 23:07 EDT) Organism ID Staphylococcus aureus(AA) VITEK SUSCEPTIBILITY 10:41 EDT [facility] Comment: Detected at 23 hours. Susceptible to nafcillin, cephalosporins and other beta lactam antibiotics (mecA gene product absent). Specimen tested for 12 gram positive organism identification targets and 3 antibiotic resistance determinant targets, by micro array technology. Staphylococcus aureus is a life threatening infection when found in the blood. It should NOT be considered a contaminant. Staphylococcus aureus bacteremia should be treated with IV antibiotics. Infectious Disease consultation is encouraged. Blood VENOUS BLOOD / Unknown Venipuncture / Unknown 03/22/2023 23:07 EDT 03/22/2023 23:20 EDT Narrative Organism Antibiotic Method Susceptibility Staphylococcus aureus Cefazolin VITEK SUSCEPTIBILIT Y Deduced Susceptible Staphylococcus aureus Oxacillin VITEK SUSCEPTIBILIT Y <=0.25 ug/mL: Susceptible Staphylococcus aureus Vancomycin VITEK SUSCEPTIBILIT Y 1 ug/mL: Susceptible Russel Daugherty MD MICROBIOLOGY - GENERAL ORDERABLES Performing Organization Address [facility]/ZIP Co de Phone Number [facility] [address] [place] [address] * HOLD BLUE TOP (03/22/2023 22:42 EDT) Hold Hold 03/22/2023 23:46 EDT [facility] Blood VENOUS BLOOD / Unknown Venipuncture / Unknown 03/22/2023 22:42 EDT 03/22/2023 22:44 EDT Russel Daugherty MD LAB INFO SERV ICE AND SUPPORT & PHONE RESULT [facility] [address] [place] [address] * HOLD SST (03/22/2023 22:42 EDT) Hold Hold 03/22/2023 23:46 EDT [facility] Blood VENOUS BLOOD / Unknown Venipuncture / Unknown 03/22/2023 22:42 EDT 03/22/2023 22:44 EDT Russel Daugherty MD LAB INFO SERV ICE AND SUPPORT & PHONE RESULT Performing Organization Address [facility] Co de Phone Number [facility] [address] [place] [address] * (ABNORMAL) COMPLETE BLOOD COUNT AND DIFFERENTIAL (03/22/2023 22:39 EDT) [facility] Signature WBC 5.94 4.00 - 10.40 K/cmm 03/22/2023 22:53 [facility] RBC 3.62(L) 4.36 - 5.78 M/cmm 03/22/2023 22:53 [facility] Hemoglobin 10.5(L) 13.8 - 17.3 g/dL 03/22/2023 22:53 [facility] HCT 29.8(L) 39.5 - 50.2 % 03/22/2023 22:53 [facility] MCV 82 81 - 95 fL 03/22/2023 22:53 [facility] MCH 29.0 27.6 - 33.0 pg 03/22/2023 22:53 [facility] MCHC 35.2 32.8 - 36.4 g/dL 03/22/2023 22:53 [facility] RDW-CV 12.1 <14.2 % 03/22/2023 22:53 [facility] RDW-SD 36.3 <46.0 fl 03/22/2023 22:53 [facility] PLT 216 141 - 377 K/cmm 03/22/2023 22:53 [facility] MPV 9.4(L) 9.5 - 12.7 fL 03/22/2023 22:53 [facility] % Neutrophils 80.5 % 03/22/2023 22:53 [facility] % Lymphocytes 8.2 % 03/22/2023 22:53 [facility] % Monocytes 10.3 % 03/22/2023 22:53 [facility] % Eosinophils 0.2 % 03/22/2023 22:53 [facility] % Basophils 0.3 % 03/22/2023 22:53 [facility] % Immature Grans 0.5 % 03/22/20 22:53 [facility] Absolute Neutrophils 4.78 2.20 - 8.85 K/cmm 03/22/2023 22:53 [facility] Absolute Lymphocytes 0.49(L) 1.09 - 3.30 K/cmm 03/22/2023 22:53 [facility] Absolute Monocytes 0.61 0.10 - 0.80 K/cmm 03/22/2023 22:53 [facility] Absolute Eosinophils 0.01(L) 0.03 - 0.61 K/cmm 03/22/2023 22:53 [facility] ABS Basophils 0.02 0.01 - 0.11 K/cmm 03/22/2023 22:53 [facility] Absolute Immature Grans 0.03 0.00 - 0.06 K/cmm 03/22/2023 22:53 [facility] Type of Differential: Auto 03/22/2023 22:53 [facility] Blood VENOUS BLOOD / Unknown Venipuncture / Unknown 03/22/2023 22:39 EDT 03/22/2023 22:44 EDT Russel Daugherty MD PACKAGES & DN A PROBE ORDERABLES [facility] [address] [place] [address] * (ABNORMAL) BASIC METABOLIC PANEL (BMP) (03/22/2023 22:39 EDT) Sodium 134(L) 136 - 145 mmol/L 03/22/2023 23:05 [facility] Potassium 4.5 3.5 - 5.0 mmol/L 03/22/2023 23:05 [facility] Comment:Moderate hemolysis i dentified, interpret with caution as hemolysis will elevate potassium result. Chloride 109 96 - 110 mmol/L 03/22/2023 23:05 [facility] CO2 Total 19(L) 22 - 32 mmol/L 03/22/2023 23:05 [facility] Anion Gap 6 5 - 14 mmol/L 03/22/2023 23:05 [facility] Glucose 102(H) 70 - 99 mg/dl 03/22/2023 23:05 [facility] Calcium 7.1(L) 8.5 - 10.5 mg/dL 03/22/2023 23:05 [facility] BUN 10 10 - 26 mg/dL 03/22/2023 23:05 [facility] Comment:Moderate hemolysis i dentified, interpret with caution as results may be affected due to hemolysis. Creatinine 0.67 0.66 - 1.25 mg/dL 03/22/2023 23:05 [facility] eGFR 111 >60 mL/min/1.7 3m2 03/22/2023 23:05 [facility] Blood VENOUS BLOOD / Unknown Venipuncture / Unknown 03/22/2023 22:39 EDT 03/22/2023 22:44 EDT Russel Daugherty MD CHEMISTRY & B LOOD GAS ORDERABLES Performing Organization Address [facility]/ZIP Co de Phone Number [facility] [address] [place] [address] * LACTIC ACID (03/22/2023 22:39 EDT) Lactic Acid 0.6 <=2.0 mmol/L 03/22/2023 23:04 EDT [facility] Blood VENOUS BLOOD / Unknown Venipuncture / Unknown 03/22/2023 22:39 EDT 03/22/2023 22:44 EDT Russel Daugherty MD CHEMISTRY & B LOOD GAS ORDERABLES [facility] [address] [place] [address] * CT OUTSIDE IMAGES ABDOMEN PELVIS (03/22/2023 11:15 EDT) Narrative 03/24/2023 11:15 EDT This is a non-reportable exam. External Imaging IMG OTHER IMAGING OR DERABLES * XR OUTSIDE IMAGES CHEST (03/22/2023 11:14 EDT) Narrative 03/24/2023 11:14 EDT This is a non-reportable exam. External Imaging IMG OTHER IMAGING OR DERABLES documented in this encounter Visit Diagnoses Diagnosis Abdominal pain- Primary Abdominal pain, unspecified site Abdominal pain Abdominal pain, unspecified site Bacteremia Postoperative ileus (HCC-CMS) Other digestive system complications Bacteremia documented in this encounter Admitting Diagnoses Diagnosis Postoperative ileus (HCC-CMS) Other digestive system complications documented in this encounter Administered Medications Inactive Administered Medications - up to 3 most recent administrations Medication Order MAR Action Action Date Dose Rate Site acetaminophen (OFIRMEV) IV solution 1,000 mg 1,000 mg, intravenous, NOW X1, 1 dose, On 03/22/23 at 2345, Is the patient NPO? If No, state reason why oral acetaminophen cannot be used in Comment field. Yes, Is this patient nothing by rectum? If No, state why rectal acetaminophen cannot be used in the Comment field. Yes, Are NSAIDs contraindicated in this patient? Yes, Is the patient in ED, PACU or ICU? Yes, STAT Given 03/23/2023 0:01 EDT 1,000 mg acetaminophen (TYLENOL) tablet 1,000 mg 1,000 mg, oral, EVERY 6 HOURS, First dose (after last modification) on 03/23/23 at 1200, Until Discontinued, Routine Given 03/26/2023 5:01 EDT 1,000 mg Given 03/25/2023 17:13 EDT 1,000 mg Given 03/25/2023 11:38 EDT 1,000 mg acetaminophen (TYLENOL) tablet 650 mg 650 mg, oral, EVERY 4 HOURS PRN, Starting on 03/23/23 at 0600, Until 03/23/23 at 0840, Pain, Routine Given 03/23/2023 5:33 EDT 650 mg ceFAZolin in dextrose (iso-os) piggyback 2 g/100 mL 2,000 mg, intravenous, Administer over 30 Minutes, EVERY 8 HOURS, 21 doses, First dose on 03/23/23 at 0115, Last dose on 03/29/23 at 1715, Type of Therapy: Empiric, Suspected Indication (Select all that apply): Non-purulent cellulitis, Other, Other Indication: thrombohlebitis, ID Consult: No, Routine Given 03/23/2023 1:26 EDT 2,000 mg ceFAZolin in dextrose (iso-os) piggyback 2 g/100 mL 2,000 mg, intravenous, Administer over 30 Minutes, EVERY 8 HOURS, 21 doses, First dose on Fri03/24/23 at 1600, Last dose on Fri03/31/23 at 0800, Type of Therapy: Definitive, Based on Cultures, Suspected Indication (Select all that apply): MSSA bacteremia/endovascular infection, ID Consult: No, Routine Given 03/27/2023 9:08 EDT 2,000 mg Given 03/26/2023 23:33 EDT 2,000 mg Given 03/26/2023 16:45 EDT 2,000 mg cefTRIAXone (ROCEPHIN) 2,000 mg in sodium chloride (NS MBP) 50 mL IVPB 2,000 mg, intravenous, Administer over 30 Minutes, EVERY 24 HOURS, 7 doses, First dose on 03/23/23 at 0015, Last dose on 03/29/23 at 0015, Type of Therapy: Empiric, Suspected Indication (Select all that apply): Community acquired intra-abdominal infection, ID Consult: No, Routine Given 03/24/2023 0:25 EDT 2,000 mg Given 03/23/2023 1:22 EDT 2,000 mg electrolyte-A (PLASMALYTE-A) solution 115 mL/hr, intravenous, CONTINUOUS, Starting on [place] 03/23/23 at 0115, Until Fri03/26/23 at 0620, Routine New Bag 03/25/2023 21:58 EDT 115 mL/hr 115 mL/ hr Rate Documented 03/25/2023 19:58 EDT 115 mL/hr 115 mL/hr Rate Documented 03/25/2023 14:12 EDT 115 mL/hr 115 mL/hr enoxaparin (LOVENOX) injection 40 mg 40 mg, subcutaneous, DAILY, First dose on [place] 03/23/23 at 0900, Until Discontinued, Routine Given 03/27/2023 9:07 EDT 4 0 mg Given 03/26/2023 9:47 EDT 40 mg Given 03/25/2023 9:31 EDT 40 mg HYDROmorphone (PF) (DILAUDID) 0.5 mg/0.5 mL syringe 0.2-0.4 mg 0.2-0.4 mg, intravenous, EVERY 3 HOURS PRN, Starting on [place] 03/23/23 at 0053, Until Fri03/26/23 at 0706, Pain, Routine Given 03/23/2023 22:03 EDT 0.4 mg Given 03/23/2023 16:35 EDT 0.2 mg Given 03/23/2023 10:43 EDT 0.4 mg iohexoL (OMNIPAQUE 350) solution 100 mL 100 mL, intravenous, Once in imaging, 1 dose, Starting on [place] 03/23/23 at 1616, Until [place] 03/23/23 at 1617, Routine, Imaging Protocol Orders Given 03/23/2023 16:17 EDT 100 mL iohexoL in sterile water (bottle) 3.2% oral solution 900 mL, oral, NOW X1, 1 dose, On [place] 03/23/23 at 1300, Routine Given 03/23/2023 13:39 EDT 900 mL lactated ringers BOLUS 1,000 mL 1,000 mL, intravenous, NOW X1, 1 dose, On 03/22/23 at 2315, STAT New Bag 03/22/2023 23:28 EDT 1,000 mL metronidazole (FLAGYL) infusion 500 mg 500 mg, intravenous, Administer over 30 Minutes, EVERY 8 HOURS, 21 doses, First dose on 03/23/23 at 0015, Last dose on 03/29/23 at 1600, Type of Therapy: Empiric, Suspected Indication (Select all that apply): Pelvic abscess, ID Consult: No, Routine Given 03/24/2023 15:57 EDT 500 mg Given 03/24/2023 8:32 EDT 500 mg Given 03/24/2023 0:26 EDT 500 mg ondansetron (PF) (ZOFRAN) injection 4 mg 4 mg, intravenous, EVERY 6 HOURS PRN, Starting on 03/23/23 at 0053, Until [place] 03/27/23 at 1855, Nausea, Vomiting, Routine Given 03/24/2023 0:25 EDT 4 mg Given 03/23/2023 15:06 EDT 4 mg potassium chloride (KLOR-CON) packet 20 mEq 20 mEq, oral, NOW X1, 1 dose, On Fri03/25/23 at 1600, Routine Given 03/25/2023 17:14 EDT 20 mEq potassium chloride in water infusion 20 mEq 20 mEq, intravenous, at 50 mL/hr, EVERY 2 HOURS, 2 doses, First dose on Fri03/25/23 at 1400, Last dose on Fri03/25/23 at 1600, Routine Given 03/25/2023 14:33 EDT 20 mEq 50 mL/h r documented in this encounter Active and Recently Administered Medications Times are shown in EDT. Scheduled Medication Order 03/25/2023 03/26/2023 03/27/2023 acetaminophen (TYLENOL) tablet 1,000 mg(Linked Group 1) 1,000 mg, oral, EVERY 6 HOURS, First dose (after last modification) on Fri03/23/23 at 1200, Until Discontinued, Routine 0505 (Given - Provider: Niya Demarco RN)1138 (Given - Provider: Venice Gonzalez RN)1713 (Given - Provider: Xochilt Bob RN) 0024 (Not Given - Provider: Niya Demarco RN - Reason: Patient/family refused)0501 (Given - Provider: Niya Demarco RN)1221 (Not Given - Provider: Valencia Garcia RN - Reason: Patient/family refused)1753 (Not Given - Provider: Pita Butler RN - Reason: Patient/family refused)2338 (Not Given - Provider: Karon Ramires RN - Reason: Patient/family refused) 0504 (Not Given - Provider: Karon Ramires RN - Reason: Patient/family refused)1131 (Not Given - Provider: Pita Butler RN - Reason: Patient/family refused)1800 (Canceled Entry - Provider: Batch Job User Admin - Comment: Automatically canceled at discontinue of medication order) ceFAZolin in dextrose (iso-os) piggyback 2 g/100 mL 2,000 mg, intravenous, Administer over 30 Minutes, EVERY 8 HOURS, 21 doses, First dose on Fri03/24/23 at 1600, Last dose on Fri03/31/23 at 0800, Type of Therapy: Definitive, Based on Cultures, Suspected Indication (Select all that apply): MSSA bacteremia/endovascul ar infection, ID Consult: No, Routine 0931 (Given - Provider: Venice Gonzalez RN)1714 (Given - Provider: Xochilt Bob RN) 0017 (Given - Provider: Niya Demarco, MATTHEW)0946 (Given - Provider: Valencia Garcia RN)1645 (Given - Provider: Pita Butler RN)2333 (Given - Provider: Karon Ramires RN) 0908 (Given - Provider: Latanya Dumont)1654 (Not Given - Provider: Pita Butler RN - Reason: Other - Comment: discharged) enoxaparin (LOVENOX) injection 40 mg 40 mg, subcutaneous, DAILY, First dose on Fri03/23/23 at 0900, Until Discontinued, Routine 0931 (Given - Provider: Venice Gonzalez RN) 0947 (Given - Provider: Valencia Garcia RN) 0907 (Given - Provider: Latanya Dumont) potassium chloride (KLOR-CON) packet 20 mEq (COMPLETED) 20 mEq, oral, NOW X1, 1 dose, On Fri03/25/23 at 1600, Routine 1714 (Given - Provider: Xochilt Bob RN) potassium chloride in water infusion 20 mEq (CANCELED) 20 mEq, intravenous, at 50 mL/hr, EVERY 2 HOURS, 2 doses, First dose on Fri03/25/23 at 1400, Last dose on Fri03/25/23 at 1600, Routine 1433 (Given - Provider: Venice Gonzalez RN) Continuous Medication Order 03/25/2023 03/26/2023 03/27/2023 electrolyte-A (PLASMALYTE-A) solution (CANCELED) 115 mL/hr, intravenous, CONTINUOUS, Starting on Fri03/23/23 at 0115, Until Fri03/26/23 at 0620, Routine 0801 (Rate Documented - Provider: Venice Gonzalez RN)0929 (Paused - Provider: Venice Gonzalez, RN)1047 (New Bag - Provider: Venice Gonzalez RN)1412 (Rate Documented - Provider: Venice Gonzalez, MATTHEW)1436 (Paused - Provider: Venice Gonzalez RN - Comment: volume left to be infused: 523)1958 (Rate Documented - Provider: Niya Demarco RN)2158 (New Bag - Provider: Niya Demarco, MATTHEW) 0629 (IV Stopped - Provider: Niya Demarco, RN) PRN Medication Order 03/25/2023 03/26/2023 03/27/2023 ondansetron (PF) (ZOFRAN) injection 4 mg 4 mg, intravenous, EVERY 6 HOURS PRN, Starting on Fri03/23/23 at 0053, Until Nasreen 03/27/23 at 1855, Nausea, Vomiting, Routine Linked Groups Order Group 1: acetaminophen (TYLENOL) tablet 1,000 mgJump to med 1,000 mg, oral, EVERY 6 HOURS, First dose (after last modification) on Fri03/23/23 at 1200, Until Discontinued, Routine documented in this encounter Orders Medications Ordered That Moses ht Not Have Been Administered Count Last Ordered Date First Ordered Date acetaminophen (TYLENOL) suppository 650 mg 1 03/22/2023 Diet Count Last Ordered Date First Orde red Date DISCHARGE DIET 1 03/27/2023 Nursing Count Last Ordered Date First Orde red Date ACTIVITY INSTRUCTIONS 1 03/27/2023 BATHING INSTRUCTIONS 1 03/27/2023 SHIN CATHETER - DISCONTINUE 1 03/25/2023 MEASURE HEIGHT 1 03/23/2023 MEASURE WEIGHT 1 03/23/2023 VTE PHARMACOLOGIC PROPHYLAXI S CURRENTLY ORDERED OR ON ALTERNATIVE THER 1 03/23/2023 IV Count Last Ordered Date First Orde red Date IV REQUEST 1 03/25/2023 Admission Count Last Ordered Date First Orde red Date ADMIT TO INPATIENT 1 03/22/2023 Transfer Count Last Ordered Date First Orde red Date ED BED REQUEST 1 03/22/2023 Discharge Count Last Ordered Date First Orde red Date DISCHARGE PATIENT 1 03/27/2023 documented in this encounter Additional Health Concerns Infection Onset Date Last Indicated Resolved Time R/O COVID-19 03/23/2023 03/23/2023 03/23/2023 10:3 6 EDT documented as of this encounter Care Teams Health Education Teacher Relationship Specialty Start Date End Date Lisa Mayorga MD [address] [place] [address] PCP - General 01/12/20 documented as of this encounter
--- OUTSIDE RECORDS SUMMARY | 2023-12-15 15:50 | XMS_ITS | Encounter Summary ---
Author Organization [facility] Address [address] [place] [address] Care Team Providers Care Mining Teacher Name Role Phone Lisa Mayorga MD Primary Care Provider [phone] Reason for Referral * Consult (Routine/Next Available) - Receiving Office to Obtain Authorization Specialty Diagnoses / Procedures Referred By Contac t Referred To Contact General Surgery Diagnoses Ulcerative colitis, chronic, other complication (HCC-CMS) [facility] [address] [place] [address] [id number] Howard Flores MD 111 [facility] [address] [place] [address] Referral ID Status Reason Start Date Expiration Date Visits Requested Visits Authorized [id number] Receiving Office to Obtain Authorization Specialty Services Required 03/21/20 23 1 1 Question Answer Scheduling Comments (optional ? describe specific scheduling needs if applicable): 1 week with voiding trial Reason for Request: voiding trial and drain removal * Specialty Diagnoses / Procedures Referred By Contac t Referred To Contact [facility] [address] [place] [address] Phone: [phone] Referral ID Status Reason Start Date Expiration Date Visits Re quested Visits Authorized Comments Please call the General Surgery clinic at to schedule a follow up with your surgeon in 1 week with a voiding trial. Please follow up with your primary care provider within a month of surgery. * Specialty Diagnoses / Procedures Referred By Sheba childs Referred To Contact [facility] [address] [place] [address] Phone: [phone] Referral ID Status Reason Start Date Expiration Date Visits Re quested Visits Authorized Comments We are currently collecting quality data on patients having surgery. You may receive a phone call, email, and/or letter about your surgery asking you a series of follow up questions to evaluate specifics aspects of your care. Thank you for your participation. Reason for Visit * Auth/Cert (Routine) Specialty Diagnoses / Procedures Referred By Sheba childs Referred To Contact Diagnoses Proctitis Procedures MS PROCTECTOMY,PART,NO ANAST,PERINEAL Perineal Proctectomy Referral ID Status Reason Start Date Expiration Date Visits Re quested Visits Authorized [id number] 03/18/2023 03/19/2023 1 1 Encounter Details Date Type Department Care Team (Late st Contact Info) Description 03/18/2023 6:35 EDT - 03/21/2023 14:30 EDT Hospital Encounter [facility] General Surgery Unit [address] [place] [address] Howard Flores MD 111 [facility], Level [address] [place] [address] Ulcerative colitis, chronic, other complication ([facility]) Discharge Disposition: Home or Self Care Social [...] place to sleep or slept in a custodial (including now)? No 03/19/2023 Interpersonal Safety Answer Date Record ed Physically Hurt Never 01/19/2020 Verbally Threaten Not on file 01/19/2020 Sex and Gender Information Value Date Recorded Sex Assigned at Not on file Gender Identity Male 01/20/2023 9:53 EDT Sexual Orientation Not on file documented as of this encounter Last Filed Vital Signs Vital Sign Reading Time Taken Comments Blood Pressure 132/75 03/21/2023 0909 EDT Pulse 79 03/20/2023 2144 EDT Temperature 37 ??C (98.6 ??F) 03/21/2023 0909 EDT Respiratory Rate 18 03/21/2023 0909 EDT Oxygen Saturation 97% 03/21/2023 0909 EDT Inhaled Oxygen Concentration - - Weight [...] Noted ??? *Ulcerative colitis, chronic, other complication ([facility]) 03/18/2023 Resolved Hospital Problems No resolved problems [...] stable and asymptomatic, was transferred back to [place] [address] that same day. No further incident. His [...] Procedure Component Value Units Date/Time SURGICAL PATHOLOGY [[id number]] Collected: 03/18/23 1059 Lab Status: In process [...] inguinal hernia repair and posterior L5-S1 fusion. [id number] CT ANGIO CHEST PE PROTOCOL Result Date: 03/20/2023 No evidence of pulmonary emboli or other significant abnormality [id number] FL CYSTOGRAM Result Date: 03/19/2023 No evidence of leak or fistula [id number] Last Lab Results at Discharge CBC: Lab Results Component Value Date WBC 7.17 03/21/2023 RBC 4.88 03/21/2023 HGB 14.0 03/21/2023 HCT 39.8 03/21/2023 MCV 82 03/21/2023 MCH 28.7 03/21/2023 MCHC 35.2 03/21/2023 PLT 268 03/21/2023 DIFFTYPE Auto 03/20/2023 03/20/2023 Labs: Troponin <0.034 NT Pro BNP 125 Discharge Follow Up Upcoming Appointments Apr 28, 2023 15:20 Post Op Visit with Howard Flores MD [facility] General Surgery - [facility] (--) [address] [place] [id number] MAHAD JAMES MD 03/21/2023 9:58 documented in [...] Means Destination Comment s Home or Self Long Term documented in this encounter Progress Notes * Berenice Mao RN - 03/21/2023 1052 EDT CASE MANAGEMENT UPDATE: Patient with discharge order to home today. Has private transportation arranged. Prescription medications sent to [facility] for pick-up. Please reach out with any additional questions/ concerns regarding dispo plan for home. Berenice Mao RN CM [facility] Department (Available via [employer] * Carrillo Bonilla MD PhD - 03/21/2023 0836 EDT Surgery Progress Note Service Date: 03/21/2023 Admit Date: 03/18/2023 6:35 POD: 1 (03/18/2023) Procedure: Perineal Proctectomy Chief Complaint: Ulcerative colitis 24 Hour Events: ?? Return to [facility] service after SICU admit Subjective/Objective Subjective [...] Principal Problem: Ulcerative colitis, chronic, other complication ([facility]) - Regular diet - Maintain pope - Continue home advair - Lactate trended to clear - EKG non-ischemic, CT PE negative - 2-4 mg of dilaudid q4h prn, tylenol - Monitor drain output - Lovenox 40 mg qhs VTE ppx VTE Prophylaxis Pharmacologic Prophylaxis: Enoxaparin (Lovenox) 40 mg SQ daily and Seqential Compression Device Discharge Plan Plan for possible discharge today Ty Angelic MS3 03/21/2023 8:36 #[id number] CARRILLO BONILLA MD PhD 03/21/2023 8:53 * Mahad James MD - 03/20/2023 1650 EDT Surgery Progress Note Service Date: 03/20/2023 Admit Date: 03/18/2023 6:35 POD: 1 (03/18/2023) Procedure: Perineal Proctectomy Chief Complaint: Ulcerative colitis 24 Hour Events: ?? Drain output 135ml (decreased from 425 mL) ?? Episode of hemoptysis, SICU admit, return to [place] service Subjective/Objective Subjective Doing well this morning, [...] Nursing Note (SBAR) Team Times: Call Type: REGIONAL CONTROLLER Call Time: 08 Call Date: 03/20/23 Call Originator: Nurse RON [...] (Name): Connie ANC (Name): Jem Respiratory (Name): Jamshid Patient Support (Name): present Other Members (Name): Sanjuanita Luis Call debriefed with: Nurse;Charge Nurse;Doctor Additional [...] transferred to SICU for continued care. * Jamshid Calles RT - 03/20/2023 0912 EDT Respiratory Rapid [...] 1.18, Glu - 99, Hct - 42 RT OSMAN 03/20/23 * Alondra Cardoza MD - 03/20/2023 [...] to CT scan and likely back to [place] [address] Family updated by surgical MONORAIL CRANE OPERATOR via phone. Rosa Funez DO Internal [...] Alondra Cardoza MD 03/20/2023 15:43 * Sanjuanita Luis NP - 03/20/2023 7932 EDT BRIEF SURGICAL UPDATE: Called to bedside [...] FOR ADMISSION: Ulcerative colitis, chronic, other complication ([facility]) Patient understands reason for admission: Yes PATIENT [...] Family member(s), Spouse / significant other Is 23/12 care available? Yes ADVANCED DIRECTIVES, POA &/or [...] expects to be discharged to: home CULTURAL, LATTER-DAY and/or LANGUAGE factors affecting health care/discharge planning: [...] device: None Community Services: Home health, MOW, SAS-none of one time a week Will you [...] Home Health Services: None DME Provider: Pharmacy: [facility] [address] [place] [address] [address] [facility] [address] [facility] [address] Home Health: Other: POST HOSPITAL TRANSITION PLAN: CM completed assessment with pt. Pt is an AOx3 pleasant male. Pt lives in a single level home with his . Pt is fully independent with all ADL's- he is hopeful todc home. Requested meds to be sent to [facility] pharmacy and will provide ride home at nd. No CM needs at the time of this assessment. Kendra Joe LMSW Director Design II Epic chat only AILYN JOE 03/19/2023 [...] #[id number] * Mahad James MD - 03/18/2023 2559 EDT POST-OP CHECK PROCEDURE: Perineal Proctectomy SUBJECTIVE: [...] documented in this encounter Consult Notes * aCm Rob - 03/20/2023 1018 EDT SICU Admit [...] History: Diagnosis Date ??? A-fib ([facility]) ablation x2 ??? Ileostomy in place ([facility]) 2020 ??? Ulcerative colitis ([facility]) status post total abdominal colectomy and ileostomy [...] No intake/output data recorded. 24 hrs: 03/19 700 - 03/20 659 In: 2392.5 [P.O.:2030; I.V.:362.5] Out: 3935 [Urine:3275; [...] of pulmonary emboli or other significant abnormality [id number] FL CYSTOGRAM Result Date: 03/19/2023 No evidence of leak or fistula [id number] Labs: CBC: Recent Labs 03/18/23 0834 03/19/23 [...] results for input(s): PHISTAT, PCOISTAT, POISTAT, POCTCO2, H4HCPNOW, POCFIO2 in the last 72 hours.Coags: No [...] needed ??? duonebs prn in place of SERVICE COUNSELOR advair ??? Inhaled TXA and suctioning prn [...] 03/20/23 CAM ROB 03/20/2023 11:59 SICU Housestaff [phone] (Service Pager) Associated attestation - Ewa Up DO - 03/20/2023 1719 EDT Attending attestation statement: I saw and [...] and anus). SURGEON: Howard Flores MD, FACS MILL TURNER: Charito Francisco MD ANESTHESIA: General endotracheal. ESTIMATED [...] Howard Flores MD, FACS / AM Confirmation: [id number] Dictation ID: [id number] cc: Lisa Mayorga MD, [facility], [address] [place] [address], [address], [place] [address] Charito Francisco MD, [facility] Staff Mail, [address] [place] [phone] documented in this encounter Miscellaneous Notes * [...] Ongoing Flowsheets (Taken 03/20/2023 0700 by Carol Montes, MATTHEW) Goal This Shift: Pain control Note: Data: pt transfer from [place] [address] rapid response,see their notes and data. On [...] LDA for any identified wounds ??? Add Phillips image for any suspected PI or non surgical wounds ??? Order wound consult if suspected PI identified ? ? If Gilmer is < or = to 16, initiate Pressure Injury Prevention Bundle ([id number]). 03/20/2023 10:11 * Plan of Care - [...] to acute urinary retention. Pt. rated pain 10. Administered pain intervention per JUL. Julissa any [...] to be escalated? No Kendra Joe LMSW Director Design II [employer] chat only * Plan of Care - Niya Frank RN - 03/18/2023 2328 EDT Problem: Daily Care Plan Goals Goal: Care Plan Documentation Flowsheets (Taken 03/18/20231920) Area of Focus: Pain/ Comfort Goal This Shift: pt will have adequate pain control this shift Data: Assumed care @ 1900. Pt POD#1 perineal proctectomy. Pt has ileostomy (SERVICE COUNSELOR), JOHAN to R buttock wbloody output, and [...] O2 sat probe, Pope, SCD sleeves and OJHAN drain, nasal oximizer, ileostomy. Device related pressure injury present? No All skin intact verified by: Allyssa Ryan RN. Last Gilmer Score: 23 Instructions: ??? Add LDA for any identified wounds ??? Add Phillips image for any suspected PI or non surgical wounds ??? Order wound consult if suspected PI identified ? ? If Gilmer is < or = to 16, initiate Pressure Injury Prevention Bundle ([id number]). 03/18/2023 15:56 ALLYSSA RYAN RN 03/18/2023 15:51 * Plan of Care - Cori Wood RN - 03/18/2023 1440 EDT Spoke to b 6 rn , gave report, agreed to helppatients pain by releasing floor order for dilaudid, she agreed with me * Brief Op Note - Charito Francisco MD - 03/18/2023 1135 EDT Date: 03/18/2023 Location: [facility] OR Name: Danya Argueta, : 1970, Diagnosis [...] Hand (Active) Closed/Suction Drain Right Perineal 19 Chinese (Active) Urethral Catheter Double-lumen;Non-latex;Straight-tip 16 fr (Active) Non-Surgical Airway (Active) Wound 03/18/23 Incision Perianal (Active) Staff: Embedded Case Manager: Johnathon Pitts RN Relief Embedded Case Manager: Fidencio Meadows RN Scrub Person: Mallory Stoner Patient Professor Of Biological Sciences: Kayla Baca Indications: Juve Argueta is an [...] only block results from tests performed at [facility] and does not apply for Miscellaneous Test Order) Immediate via [employer] Portal Attending Attestation: Dr. Flores was present [...] EDT) 04/03/2023 12:0 1 EDT Scan 2 Geospatial Developer PROCEDURE/MINOR BILLIE GICAL ORDERABLES * ECG REPORT - SCANNED (03/25/2023 12:39 EDT) 03/25/2023 12:3 9 EDT Scan 2 Geospatial Developer PROCEDURE/MINOR BILLIE GICAL ORDERABLES * ECG REPORT - SCANNED (03/23/2023 22:09 EDT) 03/23/2023 22:0 9 EDT Scan 2 Geospatial Developer PROCEDURE/MINOR BILLIE GICAL ORDERABLES * ECG REPORT - SCANNED (03/22/2023 15:04 EDT) 03/22/2023 15:0 4 EDT Scan 2 Geospatial Developer PROCEDURE/MINOR BILLIE GICAL ORDERABLES * (ABNORMAL) BASIC METABOLIC PANEL (BMP) (03/21/2023 7:26 EDT) Sodium 136 136 - 145 mmol/L 03/21/2023 8:45 [facility] Potassium 4.1 3.5 - 5.0 mmol/L 03/21/2023 8:45 [facility] Chloride 104 96 - 110 mmol/L 03/21/2023 8:45 [facility] CO2 Total 19(L) 22 - 32 mmol/L 03/21/2023 8:45 [facility] Anion Gap 13 5 - 14 mmol/L 03/21/2023 8:45 [facility] Glucose 103(H) 70 - 99 mg/dl 03/21/2023 8:45 [facility] Calcium 8.9 8.5 - 10.5 mg/dL 03/21/2023 8:45 [facility] BUN 15 10 - 26 mg/dL 03/21/2023 8:45 [facility] Creatinine 0.80 0.66 - 1.25 mg/dL 03/21/2023 8:45 [facility] eGFR 105 >60 mL/min/1.73 m2 03/21/2023 8:45 [facility] Blood VENOUS BLOOD / Unknown Venipuncture / Unknown 03/21/2023 7:26 EDT 03/21/2023 7:52 EDT Cam Underwoodlynseysalo CHEMISTRY & BLOOD GA S ORDERABLES [facility] [address] [place] [address] * (ABNORMAL) COMPLETE BLOOD COUNT (03/21/2023 7:26 EDT) WBC 7.17 4.00 - 10.40 K/cmm 03/21/2023 8:04 [facility] RBC 4.88 4.36 - 5.78 M/cmm 03/21/2023 8:04 [facility] Hemoglobin 14.0 13.8 - 17.3 g/dL 03/21/2023 8:04 [facility] HCT 39.8 39.5 - 50.2 % 03/21/2023 8:04 EDT [facility] MCV 82 81 - 95 fL 03/21/2023 8:04 EDT [facility] MCH 28.7 27.6 - 33.0 pg 03/21/2023 8:04 EDT [facility] MCHC 35.2 32.8 - 36.4 g/dL 03/21/2023 8:04 EDT [facility] RDW-CV 12.3 <14.2 % 03/21/2023 8:04 EDT [facility] RDW-SD 36.8 <46.0 fl 03/21/2023 8:04 EDT [facility] PLT 268 141 - 377 K/cmm 03/21/2023 8:04 EDT [facility] MPV 9.0(L) 9.5 - 12.7 fL 03/21/2023 8:04 EDT [facility] Blood VENOUS BLOOD / Unknown Venipuncture / Unknown 03/21/2023 7:26 EDT 03/21/2023 7:53 EDT Cam Rob HEMATOLOGY & PF4 ORD ERABLES Performing Organization Address City/[facility]/ZIP Co de Phone Number [facility] [address] [place] [address] * LACTIC ACID (03/20/2023 14:23 EDT) Lactic Acid 1.1 <=2.0 mmol/L 03/20/2023 14:46 EDT [facility] Blood VENOUS BLOOD / Unknown Venipuncture / Unknown 03/20/2023 14:23 EDT 03/20/2023 14:30 EDT Cam Rob CHEMISTRY & BLOOD GA S ORDERABLES Performing Organization Address [facility] Co de Phone Number [facility] [address] [place] [address] * CT ABDOMEN PELVIS W CONTRAST (03/20/2023 [...] inguinal hernia repair and posterior L5-S1 fusion. [id number] Narrative 03/20/2023 14:[address] ABDOMEN PELVIS [...] Multilevel degenerative disc disease, worst at L4-5. Do All Operator: No additional finding. Procedure Note Abbe Mcdowell [...] Multilevel degenerative disc disease, worst at L4-5. Do All Operator: No additional finding. IMPRESSION 1. Expected postoperative changes in the abdomen and pelvis, status postproctectomy. No organized collection or unexpected acute inflammatorychanges in the abdomen or pelvis. 2. Right abdominal end ileostomy, status post remote total colectomy. 3. Prior bilateral inguinal hernia repair and posterior L5-S1 fusion. [id number] Cam Rob [facility] CT ORDERABLES * POCT GLUCOSE, INTERFACED (03/20/2023 13:35 EDT) Glucose, POC 99 70 - 100 mg/dL 03/20/2023 13:36 EDT [facility] HN LAB POC COMMENT (GLUCOSE) Test Performed by Nursing Services 03/20/2023 13:36 EDT [facility] Blood CAPILLARY BLOOD / Unknown 03/20/2023 13:35 EDT 03/20/2023 13:36 EDT Howard Flores MD POINT OF CARE TEST O RDERASHIRLEY [facility] [address] [place] [address] * ECG REPORT - SCANNED (03/20/2023 13:16 EDT) 03/20/2023 13:1 6 EDT Scan 2 Geospatial Developer PROCEDURE/MINOR BILLIE GICAL ORDERABLES * TRANSTHORACIC ECHO (TTE) COMPLETE W/DOPPLER W/CF NO CONTRAST (03/20/2023 11:45 EDT) LA Atrial Area A4C 10.2 cm2 [facility] POINT OF CARE LV ID, ED, PLAX [...] OF CARE LV e', lateral 11.10 m/s [facility] POINT OF CARE Mitral deceleration time 225 ms [facility] POINT OF CARE LVOT peak velocity, S 1.0 m/s [facility] POINT OF CARE LVOT VTI, S 17.0 cm [facility] PO INT OF CARE LVOT mean velocity, S 0.7 m/s [facility] POINT OF CARE Mitral E-wave peak velocity 0.5 m/s [facility] POINT OF CARE Mitral A-wave peak velocity 0.6 m/s [facility] POINT OF CARE LV Systolic Volume 20 mL [facility] POINT OF CARE LV Diastolic Volume 102 [...] OF CARE LV e', medial 6.30 m/s [facility] POINT OF CARE Pulmonic valve mean velocity, S 1 cm/s [facility] POINT OF CARE LA Atrial Area A2C 10.2 cm2 [facility] POINT OF CARE LA/aortic root ratio 1 [...] color Doppler.The study was interpreted by [facility]. Pertinent images and [...] 9:19 EDT) ABO A 03/20/2023 9:52 EDT [facility] Rh Factor Positive 03/20/2023 9:52 EDT [facility] Blood VENOUS BLOOD / Unknown Venipuncture / Unknown 03/20/2023 9:19 EDT 03/20/2023 9:36 EDT Howard Flores MD BLOOD BANK TESTS [facility] [address] [place] [address] * EKG 12-LEAD (03/20/2023 9:14 EDT) 03/20/2023 9:14 EDT Narrative [facility] EKG - 03/22/2023 14:56 EDT ? [facility] ? Test Date: ?2023-03-20 Pat Name: ? DANYA ARGUETA ?Department: ? Room: ? M321 Gender: ? Male ? Bus Person: ?? [id number] : ?1970 ? Requested By: JANELLE ALMONTE N Order Number: [id number] ? Reading MD: ?? TRAY LISET MD ? Measurements Intervals ?[place] ? Rate: ? 102 ?P: ?89 MS: ? 137 ?QRS: ?81 QRSD: ? 79 [...] Note Tray Hutchins MD - 03/22/2023 [facility] Test Date: 2023-03-20 Pat Name: DANYA ARGUETA Department: Room: [facility] Gender: Male Bus Person: [id number] : 1970 Requested By: JANELLE Gould Order Number: [id number] Reading MD: TRAY OROZCO Measurements Intervals [place] Rate: 102 P: 89 MS: 137 QRS: 81 QRSD: 79 T: 78 [...] EDT by TRAY HUTCHINS MD. Sanjuanita Luis NP CARDIAC ECG ORDERABL ES [facility] EKG * CT ANGIO CHEST PE PROTOCOL (03/20/2023 8:38 EDT) Anatomical Region Laterality Modality Chest Computed Tomogra phy 03/20/2023 8:57 EDT Impressions 03/20/2023 8:57 EDT No evidence of pulmonary emboli or other significant abnormality [id number] Narrative 03/20/2023 8:[address] ANGIO CHEST [...] of pulmonary emboli or other significant abnormality [id number] Sindhu Cabrera NP IMG CT ORDERABLES * HOLD BLUE TOP (03/20/2023 8:28 EDT) Pathologist [facility] Hold Hold 03/20/2023 9:31 EDT [facility] Blood VENOUS BLOOD / Unknown 03/20/2023 8:28 EDT 03/20/2023 8:28 EDT Howard Flores MD LAB INFO SERVICE AND SUPPORT & PHONE RESULT Performing Organization Address City/[facility] Co de Phone Number [facility] [address] [place] [address] * TYPE AND SCREEN (03/20/2023 8:20 EDT) [facility] ABO A 03/20/2023 9:50 EDT [facility] Rh Factor Positive 03/20/2023 9:50 EDT [facility] Antibody Screen Negative 03/20/2023 9:50 EDT [facility] Specimen Expires: 03/23/2023 @ 23:59 03/20/2023 9:50 EDT [facility] Blood VENOUS BLOOD / Unknown Venipuncture / Unknown 03/20/2023 8:20 EDT 03/20/2023 8:30 EDT Sindhu Cabrera NP BLOOD BANK TESTS Performing Organization Address City/[facility]/ZIP Co de Phone Number [facility] [address] [place] [address] * (ABNORMAL) COMPLETE BLOOD COUNT AND DIFFERENTIAL (03/20/2023 8:20 EDT) WBC 10.70(H) 4.00 - 10.40 K/cmm 03/20/2023 8:45 [facility] RBC 5.00 4.36 - 5.78 M/cmm 03/20/2023 8:45 [facility] Hemoglobin 14.3 13.8 - 17.3 g/dL 03/20/2023 8:45 [facility] HCT 40.4 39.5 - 50.2 % 03/20/2023 8:45 [facility] MCV 81 81 - 95 fL 03/20/2023 8:45 [facility] MCH 28.6 27.6 - 33.0 pg 03/20/2023 8:45 [facility] MCHC 35.4 32.8 - 36.4 g/dL 03/20/2023 8:45 [facility] RDW-CV 12.3 <14.2 % 03/20/2023 8:45 [facility] RDW-SD 36.2 <46.0 fl 03/20/2023 8:45 [facility] PLT 292 141 - 377 K/cmm 03/20/2023 8:45 [facility] MPV 9.3(L) 9.5 - 12.7 fL 03/20/2023 8:45 [facility] % Neutrophils 61.5 % 03/20/2023 8:45 [facility] % Lymphocytes 25.4 % 03/20/2023 8:45 [facility] % Monocytes 11.4 % 03/20/2023 8:45 [facility] % Eosinophils 1.0 % 03/20/2023 8:45 [facility] % Basophils 0.3 % 03/20/2023 8:45 [facility] % Immature Grans 0.4 % 03/20/20 8:45 [facility] Absolute Neutrophils 6.58 2.20 - 8.85 K/cmm 03/20/2023 8:45 [facility] Absolute Lymphocytes 2.72 1.09 - 3.30 K/cmm 03/20/2023 8:45 EDT [facility] Absolute Monocytes 1.22(H) 0.10 - 0.80 K/cmm 03/20/2023 8:45 EDT [facility] Absolute Eosinophils 0.11 0.03 - 0.61 K/cmm 03/20/2023 8:45 EDT [facility] ABS Basophils 0.03 0.01 - 0.11 K/cmm 03/20/2023 8:45 EDT [facility] Absolute Immature Grans 0.04 0.00 - 0.06 K/cmm 03/20/2023 8:45 EDT [facility] Type of Differential: Auto 03/20/2023 8:45 EDT [facility] Blood VENOUS BLOOD / Unknown Venipuncture / Unknown 03/20/2023 8:20 EDT 03/20/2023 8:27 EDT Sindhu Cabrera MONORAIL CRANE OPERATOR PACKAGES & DNA PROBE ORDERABLES [facility] [address] [place] [address] * EKG 12-LEAD (03/20/2023 8:18 EDT) 03/20/2023 8:18 EDT Narrative [facility] EKG - 03/20/2023 12:51 EDT ? [facility] ? Test Date: ?2023-03-20 Pat Name: ? DANYA ARGUETA ?Department: ?? [place] [address] ? Room: ? B685 Gender: ? Male ? Bus Person: ?? [id number] : ?1970 ? Requested By: MARIETTASKCrista ROSA Order Number: [id number] ? Rachael MD: ?? RUSSEL HENNESSY MD PhD ? Measurements Intervals ?Ponca ? Rate: ? 131 ?P: ?82 MS: ? 139 ?QRS: ?71 QRSD: ? 86 [...] Russel Hennessy MD PhD - 03/20/2023 [facility] Test Date: 2023-03-20 Pat Name: DANYA ARGUETA Department: [place] [address] Room: [facility] Gender: Male Bus Person: [id number] : 1970 Requested By: JOHNNY BHANDARI Order Number: [id number] Reading MD: RUSSEL HENNESSY formerly [facility] Measurements Intervals [place] Rate: 131 P: 82 MS: 139 QRS: 71 QRSD: 86 T: 87 QT: 282 QTc: 416 Interpretive Statements SINUS TACHYCARDIA LEFT VENTRICULAR HYPERTROPHY AND ST-T CHANGE Compared to ECG 03/20/2023 08:04:22 No significant changes I reviewed the tracing and have either agreed or edited the findings inthis report. Electronically Signed On 03-20-2023 12:51:06 EDT by RACIEL LUU PhD. Rosa Funez DO CARDIAC ECG ORDERA BLES [facility] EKG * MAGNESIUM (03/20/2023 8:18 EDT) Magnesium 2.1 1.7 - 2.8 mg/dL 03/20/2023 8:46 EDT [facility] Blood VENOUS BLOOD / Unknown Venipuncture / Unknown 03/20/2023 8:18 EDT 03/20/2023 8:29 EDT Sindhu Cabrera NP CHEMISTRY & BLOOD GA S ORDERABLES [facility] [address] [place] [address] * (ABNORMAL) CALCIUM, IONIZED (03/20/2023 8:18 EDT) Calcium, Ionized 1.08(L) 1.14 - 1.35 mmol/L 03/20/2023 8:46 [facility] Comment: Tube not filled to capacity. Ionized calcium results may be falsely decreased. Interpret results with caution. Blood VENOUS BLOOD / Unknown Venipuncture / Unknown 03/20/2023 8:18 EDT 03/20/2023 8:29 EDT Sindhu Cabrera MONORAIL CRANE OPERATOR CHEMISTRY & BLOOD GA S ORDERABLES [facility] [address] [place] [address] * (ABNORMAL) COMPREHENSIVE METABOLIC PANEL (CMP) (03/20/2023 8:18 EDT) Sodium 137 136 - 145 mmol/L 03/20/2023 8:46 [facility] Potassium 4.2 3.5 - 5.0 mmol/L 03/20/2023 8:46 [facility] Chloride 103 96 - 110 mmol/L 03/20/2023 8:46 [facility] CO2 Total 23 22 - 32 mmol/L 03/20/2023 8:46 [facility] Glucose 104(H) 70 - 99 mg/dl 03/20/2023 8:46 [facility] BUN 13 10 - 26 mg/dL 03/20/2023 8:46 [facility] Creatinine 0.80 0.66 - 1.25 mg/dL 03/20/2023 8:46 [facility] eGFR 105 >60 mL/min/1.7 3m2 03/20/2023 8:46 [facility] Total Protein 7.8 6.3 - 8.2 g/dL 03/20/2023 8:46 [facility] Albumin 4.3 3.4 - 4.9 g/dL 03/20/2023 8:46 [facility] Alkaline Phosphatase 48 38 - 126 U/L 03/20/2023 8:46 [facility] AST 43 15 - 46 U/L 03/20/2023 8:46 EDT [facility] ALT 21 <50 U/L 03/20/2023 8:46 EDT [facility] Bilirubin, Total 1.4(H) <1.4 mg/dL 03/20/20 8:46 EDT [facility] Calcium 9.3 8.5 - 10.5 mg/dL 03/20/2023 8:46 EDT [facility] Albumin/Globulin Ratio 1.2 1.0 - 2.5 g/dL 03/20/2023 8:46 EDT [facility] Anion Gap 11 5 - 14 mmol/L 03/20/2023 8:46 EDT [facility] Blood VENOUS BLOOD / Unknown Venipuncture / Unknown 03/20/2023 8:18 EDT 03/20/2023 8:29 EDT Sindhu Cabrera NP CHEMISTRY & BLOOD GA S ORDERABLES Performing Organization Address [facility] Co de Phone Number [facility] [address] [place] [address] * (ABNORMAL) LACTIC ACID (03/20/2023 8:18 EDT) Lactic Acid 2.2(HH) <=2.0 mmol/L 03/20/2023 8:49 EDT [facility] Blood VENOUS BLOOD / Unknown Venipuncture / Unknown 03/20/2023 8:18 EDT 03/20/2023 8:29 EDT Sindhu Cabrera NP CHEMISTRY & BLOOD GA S ORDERABLES Performing Organization Address [facility] Co de Phone Number [facility] [address] [place] [address] * (ABNORMAL) POCT BLOOD GAS, CG8 I-STAT (03/20/2023 8:15 EDT) pH, Venous, i-STAT 7.55(H) 7.31 - 7.41 03/20/2023 8:19 EDT [facility] pCO2, Venous, i-STAT 28(L) 41 - 51 mmHg 03/20/2023 8:19 [facility] pO2, Venous, i-STAT 30 30 - 50 mmHg 03/20/2023 8:19 [facility] TCO2, Venous, i-STAT 25 22 - 28 mmol/L 03/20/2023 8:19 [facility] O2 Saturation, Venous, i-STAT 69 60 - 85 % 03/20/2023 8:19 [facility] Sodium, Venous, i-STAT 137 136 - 145 mmol/L 03/20/2023 8:19 [facility] Potassium, Venous, i-STAT 4.0 3.5 - 5 mmol/L 03/20/2023 8:19 [facility] Glucose, Venous, i-STAT 99 70 - 100 mg/dL 03/20/2023 8:19 [facility] Hematocrit, Venous, i-STAT 42 40 - 50 % 03/20/2023 8:19 [facility] Ionized Calcium, Venous, i-STAT 1.18 1.12 - 1.32 mmol/L 03/20/2023 8:19 [facility] Base Excess(+) / Deficit(-), Venous, i-STAT 3 -2 - 3 mmol/L 03/20/2023 8:19 [facility] Blood VENOUS BLOOD / Unknown 03/20/2023 8:15 EDT 03/20/2023 8:19 EDT Narrative [facility] - 03/20/2023 8:19 EDT Test Performed by Respiratory Howard Flores MD POINT OF CARE TEST O RDERABLES [facility] [address] [place] [address] * EKG 12-LEAD (03/20/2023 8:04 EDT) 03/20/2023 8:04 EDT Narrative [facility] E[facility] - 04/03/2023 11:43 EDT ? [facility] ? Test Date: ?2023-03-20 Pat Name: ? DANYA ARGUETA ?Department: ?? [place] [address] ? Room: ? B685 Gender: ? Male ? Bus Person: ?? [id number] : ?1970 ? Requested By: JANELLE ALMONTE N Order Number: [id number] ? Reading MD: ?? AHVESNA GRAHAM MD ? Measurements Intervals ?[place] ? Rate: ? 140 ?P: ?81 MS: ? 134 ?QRS: ?73 QRSD: ? 85 ? T: ?76 QT: ? 280 ? QTc: ?428 ? Interpretive Statements SINUS TACHYCARDIA, POSSIBLE ATRIAL FLUTTER LEFT VENTRICULAR HYPERTROPHY AND ST-T CHANGE I reviewed the tracing and have either agreed or edited the findings in this report. Electronically Signed On 04-03-2023 11:43:40 EDT by OSCAR GRAHAM MD. Procedure Note Oscar Graham MD - 04/03/2023 [facility] Test Date: 2023-03-20 Pat Name: DANYA ARGUETA Department: [place] [address] Room: [facility] Gender: Male Bus Person: [id number] : 1970 Requested By: JANELLE Gould Order Number: [id number] Reading MD: OSCAR GRAHAM MD Measurements Intervals [place] Rate: 140 P: 81 MS: 134 QRS: 73 QRSD: 85 T: 76 QT: 280 QTc: 428 Interpretive Statements SINUS TACHYCARDIA, POSSIBLE ATRIAL FLUTTER LEFT VENTRICULAR HYPERTROPHY AND ST-T CHANGE I reviewed the tracing and have either agreed or edited the findings inthis report. Electronically Signed On 04-03-2023 11:43:40 EDT by OSCAR HONG. Sanjuanita Luis NP CARDIAC ECG ORDERABL ES [facility] EKG * NT PRO BNP (03/20/2023 7:43 EDT) NT-pro BNP 125 <299 pg/mL 03/20/2023 8:57 EDT [facility] Comment: In the acute setting NT-proBNP values <300 pg/mL have a 98% NPV for excluding acute heart failure. In outpatient populations, NT-proBNP values <125 have a 99% NPV for excluding heart failure. Blood VENOUS BLOOD / Unknown Venipuncture / Unknown 03/20/2023 7:43 EDT 03/20/2023 7:56 EDT Sanjuanita Luis NP CHEMISTRY & BLOOD GA S ORDERABLES [facility] [address] [place] [address] * BASIC METABOLIC PANEL (BMP) (03/20/2023 7:43 EDT) Sodium 138 136 - 145 mmol/L 03/20/2023 8:29 [facility] Potassium 4.1 3.5 - 5.0 mmol/L 03/20/2023 8:29 [facility] Chloride 104 96 - 110 mmol/L 03/20/2023 8:29 [facility] CO2 Total 23 22 - 32 mmol/L 03/20/2023 8:29 [facility] Anion Gap 11 5 - 14 mmol/L 03/20/2023 8:29 [facility] Glucose 96 70 - 99 mg/dl 03/20/2023 8:29 [facility] Calcium 8.9 8.5 - 10.5 mg/dL 03/20/2023 8:29 [facility] BUN 12 10 - 26 mg/dL 03/20/2023 8:29 [facility] Creatinine 0.79 0.66 - 1.25 mg/dL 03/20/2023 8:29 [facility] eGFR 106 >60 mL/min/1.73 m2 03/20/2023 8:29 [facility] Blood VENOUS BLOOD / Unknown Venipuncture / Unknown 03/20/2023 7:43 EDT 03/20/2023 7:56 EDT Rosa Funez DO CHEMISTRY & BLOOD GAS ORDERABLES [facility] [address] [place] [address] * TROPONIN I (03/20/2023 7:43 EDT) Troponin I (ng/mL) <0.034 <0.034 ng/mL 03/20/2023 8:29 EDT [facility] Blood VENOUS BLOOD / Unknown Venipuncture / Unknown 03/20/2023 7:43 EDT 03/20/2023 7:56 EDT Narrative [facility] - 03/20/2023 8:29 EDT The results of this assay can be falsely lowered due to the consumption of Biotin. Sanjuanita Luis NP CHEMISTRY & BLOOD GA S ORDERABLES Performing Organization Address [facility] Co de Phone Number [facility] [address] [place] [address] * CREATININE (03/20/2023 7:00 EDT) Pathologist [facility] Creatinine 0.82 0.66 - 1.25 mg/dL 03/20/2023 7:59 EDT [facility] eGFR 104 >60 mL/min/1.73 m2 03/20/2023 7:59 EDT [facility] Blood VENOUS BLOOD / Unknown Venipuncture / Unknown 03/20/2023 7:00 EDT 03/20/2023 7:26 EDT Howard Flores MD CHEMISTRY & BLOOD GA S ORDERABLES Performing Organization Address City/[facility]/ZIP Co de Phone Number [facility] [address] [place] [address] * (ABNORMAL) COMPLETE BLOOD COUNT (03/19/2023 11:30 EDT) WBC 9.67 4.00 - 10.40 K/cmm 03/19/2023 11:55 EDT [facility] RBC 4.22(L) 4.36 - 5.78 M/cmm 03/19/2023 11:55 EDT [facility] Hemoglobin 12.4(L) 13.8 - 17.3 g/dL 03/19/2023 11:55 EDT [facility] HCT 34.4(L) 39.5 - 50.2 % 03/19/2023 11:55 EDT [facility] MCV 82 81 - 95 fL 03/19/2023 11:55 EDT [facility] MCH 29.4 27.6 - 33.0 pg 03/19/2023 11:55 EDT [facility] MCHC 36.0 32.8 - 36.4 g/dL 03/19/2023 11:55 T [facility] RDW-CV 12.4 <14.2 % 03/19/2023 11:55 T [facility] RDW-SD 36.6 <46.0 fl 03/19/2023 11:55 EDT [facility] PLT 224 141 - 377 K/cmm 03/19/2023 11:55 T [facility] MPV 9.4(L) 9.5 - 12.7 fL 03/19/2023 11:55 EDT [facility] Blood VENOUS BLOOD / Unknown Venipuncture / Unknown 03/19/2023 11:30 EDT 03/19/2023 11:46 EDT Sanjuanita Luis MONORAIL CRANE OPERATOR HEMATOLOGY & PF4 ORD ERABLES Performing Organization Address City/State/[facility] Co de Phone Number [facility] [address] [place] [address] * FL CYSTOGRAM (03/19/2023 9:49 EDT) Anatomical Region Laterality Modality Body Radio Fluoroscop y 03/19/2023 10:4 1 EDT Impressions 03/19/2023 10:41 EDT No evidence of leak or fistula [id number] Narrative 03/19/2023 10:41 EDT FL CYSTOGRAM ??03/19/2023 [...] IMPRESSION No evidence of leak or fistula [id number] Sanjuanita N Janelle MONORAIL CRANE OPERATOR IMG FLUOROSCOPY RITA SOLORZANOGAEL * SURGICAL PATHOLOGY (03/18/2023 10:59 EDT) Note to Patient The following pathology results have been interpreted by your pathologist and may be available to you before your health provider has had the opportunity to review them. Please allow time for your provider to receive these results and explore management options, if applicable. 03/21/2023 10:23 [facility] Final Diagnosis A. RECTUM AND ANUS, RESECTION: - Consistent with severe diversion colitis. - Benign reactive lymph nodes. - Negative for dysplasia and malignancy. 03/21/2023 10:23 [facility] Attestation There was significant resident/fellow involvement in the diagnostic evaluation of this case. By the signature below, the attending physician certifies that they have personally conducted a gross and/or microscopic examination of the described specimens and rendered or confirmed the above diagnosis. 03/21/2023 10:23 [facility] at 1023 Clinical History Proctitis 03/21/2023 10:23 [facility] Gross Description A. Received [...] to 1.5 x 1.1 x 0.6 cm. Service Counselor sections are submitted as follows: BLOCK BYRD A1- proximal margin en face A2- distal anal margin en face A3-A5- large bowel market survey representative sections full-thickness A6- 2 possible lymph nodes bisected A7- 2 possible lymph nodes one bisected A8- 1 possible lymph node bisected TINA CREWS [facility] 03/19/2023 16:18 03/21/2023 10:23 EDT [facility] Resident/Aleks w: Ji Zurita MB [facility] 03/21/2023 10:23 EDT [facility] Performing Lab [facility] 03/21/2023 10:23 T [facility] Scanned Images 03/21/2023 10:23 T [facility] Tissue COLON STRUCTURE / Unknown 03/18/2023 10:59 EDT 03/18/2023 15:33 EDT Howard Flores MD PATHOLOGY ORDERABLES [facility] [address] [place] [address] * (ABNORMAL) COMPLETE BLOOD COUNT (03/18/2023 8:34 EDT) WBC 5.02 4.00 - 10.40 K/cmm 03/18/2023 8:48 EDT [facility] RBC 4.53 4.36 - 5.78 M/cmm 03/18/2023 8:48 T [facility] Hemoglobin 13.2(L) 13.8 - 17.3 g/dL 03/18/2023 8:48 EDT [facility] HCT 37.4(L) 39.5 - 50.2 % 03/18/2023 8:48 T [facility] MCV 83 81 - 95 fL 03/18/2023 8:48 EDT [facility] MCH 29.1 27.6 - 33.0 pg 03/18/2023 8:48 EDT [facility] MCHC 35.3 32.8 - 36.4 g/dL 03/18/2023 8:48 EDT [facility] RDW-CV 12.3 <14.2 % 03/18/2023 8:48 EDT [facility] RDW-SD 37.2 <46.0 fl 03/18/2023 8:48 EDT [facility] PLT 232 141 - 377 K/cmm 03/18/2023 8:48 EDT [facility] MPV 9.0(L) 9.5 - 12.7 fL 03/18/2023 8:48 EDT [facility] Blood VENOUS BLOOD / Unknown Venipuncture / Unknown 03/18/2023 8:34 EDT 03/18/2023 8:38 EDT Yusuf Ventura MD HEMATOLOGY & PF4 ORD ERABLES [facility] [address] [place] [address] documented in this encounter Visit Diagnoses Diagnosis Ulcerative colitis, chronic, other complication (HCC-CMS)- Primary Ulcerative colitis, chronic, other complication (HCC-CMS) documented in this encounter Admitting Diagnoses Diagnosis Ulcerative colitis, chronic, other complication (HCC-CMS) documented in this encounter Administered Medications Inactive Administered Medications - up to 3 most recent administrations Medication Order MAR Action Action Date Dose Rate Site acetaminophen (TYLENOL) tablet 1,000 mg 1,000 mg, oral, PRE-OP ONCE, 1 dose, On Fri03/18/23 at 0815, Routine, Preprocedure Given 03/18/2023 8:36 EDT 1,000 mg acetaminophen (TYLENOL) tablet 1,000 mg 1,000 mg, oral, PRN, 1 dose, Starting on Fri03/18/23 at 1135, Until Fri03/18/23 at 1351, Pain, Routine, Recovery (only) Given 03/18/2023 13:51 EDT 1,000 mg acetaminophen (TYLENOL) tablet 1,000 mg 1,000 mg, oral, EVERY 6 HOURS, First dose on Fri03/18/23 at 2000, Until Discontinued, Routine Given 03/21/2023 9:11 EDT 1,000 mg Given 03/20/2023 20:05 EDT 1,000 mg Given 03/20/2023 14:11 EDT 1,000 mg electrolyte-A (PLASMALYTE-A) solution at 75 mL/hr, intravenous, CONTINUOUS, Starting on Fri03/18/23 at 1200, Until Fri03/19/23 at 0741, Routine Rate Documented 03/19/2023 7:00 EDT 75 mL/hr New Bag 03/18/2023 23:04 EDT 75 mL/hr Rate Documented 03/18/2023 19:21 EDT 75 mL/hr enoxaparin (LOVENOX) injection 40 mg 40 mg, subcutaneous, AT BEDTIME, First dose on Fri03/19/23 at 2100, Until Discontinued, Routine Given 03/20/2023 20:04 EDT 40 mg Given 03/19/2023 20:01 EDT 40 mg fentaNYL citrate (PF) injection 25-50 mcg 25-50 mcg, intravenous, EVERY 5 MIN PRN, Starting on Fri03/18/23 at 1135, Until Fri03/18/23 at 1456, Pain, Routine, Recovery (only) Given 03/18/2023 14:34 EDT 50 mcg Given 03/18/2023 14:27 EDT 50 mcg Given 03/18/2023 13:51 EDT 25 mcg fluticasone propion-salmeteroL (ADVAIR) 250-50 mcg/dose diskus inhaler 1 Puff 1 Puff, inhalation, 2 TIMES DAILY, First dose (after last modification) on Nasreen 03/20/23 at 0800, Until Discontinued, STAT Given 03/21/2023 9:14 EDT 1 Puff Given 03/20/2023 20:05 EDT 1 Puff Given 03/20/2023 7:53 EDT 1 Puff gabapentin (NEURONTIN) capsule 600 mg 600 mg, oral, PRE-OP ONCE, 1 dose, On Fri03/18/23 at 0815, Routine, Preprocedure Given 03/18/2023 8:36 EDT 600 mg heparin injection 5,000 Units 5,000 Units, subcutaneous, PRE-OP ONCE, 1 dose, On Fri03/18/23 at 0815, Routine, Preprocedure Given 03/18/2023 8:36 EDT 5,000 Units HYDROmorphone (DILAUDID) tablet 2-4 mg 2-4 mg, oral, EVERY 30 MINUTES PRN, 2 doses, Starting on Fri03/18/23 at 1135, Until Fri03/18/23 at 1427, Pain, Routine, Recovery (only) Given 03/18/2023 14:27 EDT 2 mg Given 03/18/2023 12:07 EDT 4 mg HYDROmorphone (DILAUDID) tablet 2-4 mg 2-4 mg, oral, EVERY 4 HOURS PRN, Starting on Fri03/18/23 at 1416, Until Fri03/21/23 at 1631, Pain, Routine Given 03/20/2023 23:48 EDT 4 mg Given 03/19/2023 23:31 EDT 4 mg Given 03/19/2023 12:45 EDT 4 mg HYDROmorphone (PF) (DILAUDID) 0.5 mg/0.5 mL syringe 0.2-0.4 mg 0.2-0.4 mg, intravenous, EVERY 4 HOURS PRN, Starting on Fri03/18/23 at 1506, Until Fri03/19/23 at 0544, Pain, Routine Given 03/18/2023 17:04 EDT 0.4 mg HYDROmorphone (PF) (DILAUDID) 0.5 mg/0.5 mL syringe 0.3-0.5 mg 0.3-0.5 mg, intravenous, EVERY 10 MINUTES PRN, Starting on Fri03/18/23 at 1135, Until Fri03/18/23 at 1456, Pain, Routine, Recovery (only) Given 03/18/2023 13:51 EDT 0.5 mg Given 03/18/2023 12:42 EDT 0.5 mg Given 03/18/2023 12:07 EDT 0.5 mg iohexoL (OMNIPAQUE 350) solution 100 mL 100 mL, intravenous, Once in imaging, 1 dose, Starting on Fri03/20/23 at 0838, Until Fri03/20/23 at 0838, Routine, Imaging Protocol Orders Given 03/20/2023 8:38 EDT 80 mL iohexoL (OMNIPAQUE 350) solution 100 mL 100 mL, intravenous, Once in imaging, 1 dose, Starting on Nasreen 03/20/23 at 1346, Until Fri03/21/23 at 1631, Routine, Imaging Protocol Orders iohexoL (OMNIPAQUE 350) solution 100 mL 100 mL, intravenous, Once in imaging, 1 dose, Starting on Nasreen 03/20/23 at 1347, Until Nasreen 03/20/23 at 1358, Routine Given 03/20/2023 13:58 EDT 95 mL ipratropium-albuteroL (DUONEB) 0.5 mg-3 mg(2.5 mg base)/3 mL nebulizer solution 3 mL 3 mL, nebulization, EVERY 4 HOURS PRN, Starting on Nasreen 03/20/23 at 1158, Until Fri03/21/23 at 1631, Wheezing, Shortness of Breath, Routine lactated ringers (LR) infusion at 25 mL/hr, intravenous, CONTINUOUS, Starting on Fri03/18/23 at 0815, Until Fri03/18/23 at 1506, Routine, Preprocedure New Bag 03/18/2023 10:33 EDT 25 mL/hr Continued by Anesthesia 03/18/2023 9:02 EDT 25 mL/hr New Bag 03/18/2023 8:56 EDT 25 mL/hr lactated ringers (LR) infusion at 75 mL/hr, intravenous, PACU CONTINUOUS, Starting on Fri03/18/23 at 1200, Until Fri03/18/23 at 1456, Routine, Recovery (only) Rate Documented 03/18/2023 11:51 EDT 75 mL/hr nitroglycerin (NITROSTAT) SL tablet 0.4 mg 0.4 mg, sublingual, EVERY 5 MIN PRN, Starting on Nasreen 03/20/23 at 0805, Until Fri03/21/23 at 1631, Chest Pain, STAT nitroglycerin (NITROSTAT) SL tablet 0.4 mg 0.4 mg, sublingual, EVERY 5 MIN PRN, 3 doses, Starting on Nasreen 03/20/23 at 0806, Until Nasreen 10/19/23 at 0807, Chest Pain, STAT Given 03/20/2023 8:26 EDT 0.4 mg Given 03/20/2023 8:10 EDT 0.4 mg ondansetron (PF) (ZOFRAN) injection 4 mg [...] Until Fri03/21/23 at 1631, Line Care, Routine tranexamic acid (CYKLOKAPRON) inhalation 500 mg 500 mg, inhalation, NOW X1, 1 dose, On Nasreen 03/20/23 at 0830, Indications: Hemoptysis, STAT Given 03/20/2023 8 :40 EDT 500 mg documented in this encounter Discontinued Medications Medication [...] Discontinued, Routine 0249 (Given - Provider: Niya Frank RN)0808 (Given - Provider: Carol Montes RN)1520 (Given - Provider: Sarah Moya RN)1946 (Given - Provider: Niya Frank RN) 0310 (Given - Provider: Niya Frank RN)0910 (Given - Provider: Paul Benedict, RN - Comment: transfer from floor rapid response)1411 (Given - Provider: Paul Benedict, RN)2004 (Given - Provider: Lalo Henry RN) 0200 (Canceled Entry - Provider: Batch Job User Admin - Comment: Automatically canceled at discontinue of medication order)0911 (Given - Provider: Jovani Barrios, RN)1400 (Canceled Entry - Provider: Batch Job [...] Moya RN)2004 (Given - Provider: Lalo Henry, RN) 0914 (Given - Provider: Jovani Barrios, MATTHEW) iohexoL (OMNIPAQUE 350) solution 100 mL (COMPLETED) 100 mL, intravenous, Once in imaging, 1 dose, Starting on Nasreen 03/20/23 at 0838, Until Nasreen 03/20/23 at 0838, Routine, Imaging Protocol Orders 0838 (Given - Provider: Sarwat Quinteros) iohexoL (OMNIPAQUE 350) solution 100 mL 100 mL, intravenous, Once in imaging, 1 dose, Starting on Nasreen 03/20/23 at 1346, Until Fri03/21/23 at 1631, Routine, Imaging Protocol Orders iohexoL (OMNIPAQUE 350) solution 100 mL (COMPLETED) 100 mL, intravenous, Once in imaging, 1 dose, Starting on Nasreen 03/20/23 at 1347, Until Nasreen 03/20/23 at 1358, Routine 1358 (Given - Provider: Noreen Kaminski) tranexamic acid (CYKLOKAPRON) inhalation 500 mg (COMPLETED) 500 mg, inhalation, NOW X1, 1 dose, On Nasreen 03/20/23 at 0830, Indications: Hemoptysis, STAT 0840 (Given - Provider: Jamshid Calles, RT) Continuous Medication Order 03/19/2023 03/20/2023 03/21/2023 electrolyte-A (PLASMALYTE-A) solution (CANCELED) at 75 mL/hr, intravenous, CONTINUOUS, Starting on Fri03/18/23 at 1200, Until Fri03/19/23 at 0741, Routine 0700 (Rate Documented - Provider: Carol Montes, MATTHEW)1923 (Completed - Provider: Niya Frank, MATTHEW) PRN Medication Order 03/19/2023 03/20/2023 03/21/2023 HYDROmorphone (DILAUDID) tablet 2-4 mg 2-4 mg, oral, EVERY 4 HOURS PRN, Starting on Fri03/18/23 at 1416, Until Fri03/21/23 at 1631, Pain, Routine 1245 (Given - Provider: Carol Montes, MATTHEW)2331 (Given - Provider: Niya Frank, RN) 2348 (Given - Provider: Lalo eHnry, MATTHEW) ipratropium-albuteroL (DUONEB) 0.5 mg-3 mg(2.5 mg base)/3 mL nebulizer solution 3 mL 3 mL, nebulization, EVERY 4 HOURS PRN, Starting on Nasreen 03/20/23 at 1158, Until Fri03/21/23 at 1631, Wheezing, [...] Pain, STAT 0810 (Given - Provider: Connie Kline RN)0826 (Given - Provider: Connie Kline, MATTHEW) [...] (ADVAIR) 250-50 mcg/dose diskus inhaler 1 Puff 2 03/20/2023 glucagon injection 1 mg 1 03/20/2023 insulin aspart U-100 (NOVOLO G FLEXPEN) injection 1 03/20/2023 iohexoL (OMNIPAQUE 350) solution 100 mL 1 1 ipratropium-albuteroL (DUONE B) 0.5 mg-3 mg(2.5 mg base)/3 mL nebulizer solution 3 mL 1 03/20/2023 nitroglycerin (NITROSTAT) SL tablet 0.4 mg 1 03/20/2023 acetaminophen (TYLENOL) solu tion unit dose cup 995 mg 1 03/18/2023 atropine 0.1 mg/mL syringe 0.5 mg 1 chlorhexidine gluconate 2 % cloth 1 Each 1 03/18/2023 diphenhydrAMINE (BENADRYL) i njection 12.5 mg 1 03/18/2023 lactated ringers (LR) infusion 1 03/18/2023 lidocaine (PF) 10 mg/mL (1 % ) injection 2 mg 2 03/18/2023 lidocaine-EPINEPHrine 1 %-1: 100,000 4 mL, BUPivacaine (PF) (MARCAINE) 0.5% 20 mL 1 03/18/2023 naloxone (NARCAN) injection 0.2 mg 1 2022 ondansetron (PF) (ZOFRAN) injection 4 mg 1 03/18/2023 ondansetron (ZOFRAN-ODT) dis integrating tablet 4 mg 1 03/18/2023 sodium chloride 0.9 % (flush) flush 5 mL 1 03/18/2023 sodium chloride 0.9 % irrigation 1 03/18/20 23 Diet Count Last Ordered Date First Orde [...] 03/03 documented in this encounter Care Teams Mining Teacher Relationship Specialty Start Date End Date iLsa Mayorga MD [address] [place] [id number] PCP - General 01/12/20 documented as of this encounter
--- OUTSIDE RECORDS SUMMARY | 2023-12-15 15:50 | XMS_ITS | Encounter Summary ---
Author Organization [facility] Address [address] [place] [address] Care Team Providers Care Trim Sawyer Name Role Phone Lisa Mayorga MD Primary Care Provider [phone] Encounter Details Date Type Department Care Team (Latest Contact Info) Description 03/22/2023 Hospital Encounter [facility] Secondary Reads [place] Discharge Disposition: Home or [...] place to sleep or slept in a snf (including now)? No 03/19/2023 Interpersonal Safety Answer [...] Name Priority Date/Time Associated Diagnosis Comments CT OUTSIDE IMAGES ABDOMEN PELVIS Routine 03/22/2023 11:15 EDT documented in this encounter Results * CT OUTSIDE IMAGES ABDOMEN PELVIS (03/22/2023 11:15 EDT) Narrative 03/24/2023 11:15 EDT This is a non-reportable exam. External Imaging IMG OTHER IMAGING OR DERABLES documented in this encounter Visit Diagnoses Not on filedocumented in this encounter Care Teams Trim Sawyer Relationship Specialty Start Date End Date Berrian, Lisa, MD [address] [place] [address] PCP - General 01/12/20 documented as of this encounter
--- OUTSIDE RECORDS SUMMARY | 2023-12-15 15:50 | XMS_ITS | Encounter Summary ---
Author Organization [facility] Address [address] [place] [address] Care Team Providers Care Revenue Agent Name Role Phone Lisa Mayorga MD Primary Care Provider [phone] Reason for Visit * Auth/Cert (Routine) Specialty Diagnoses / Procedures Referred By Contac t Referred To Contact Diagnoses Abdominal pain Postoperative ileus (HCC-CMS) Sepsis post procedure; ileus Referral ID Status Reason Start Date Expiration Date Visits Re quested Visits Authorized [id number] 1 1 Encounter Details Date Type Department Care Team (Late st Contact Info) Description 03/24/2023 10:40 EDT Ancillary Procedure [facility] Vascular Surgery - Main [place] [address] [place] [address] Social History Tobacco Use Types Packs/Day Years [...] Procedure Name Priority Date/Time Associated Diagnosis Comments US UPPER VENOUS DUPLEX STAT 03/24/2023 12:12 EDT documented in this encounter Results * US UPPER VENOUS DUPLEX (DVT) LEFT [...] evidence of thrombus. Anat Berg MD IMG VASCULAR RITA JUAN documented in this encounter Visit Diagnoses Not on filedocumented in this encounter Care Teams Revenue Agent Relationship Specialty Start Date End Date Lisa Mayorga MD [address] [place] [address] PCP - General 01/12/20 documented as of this encounter
--- OUTSIDE RECORDS SUMMARY | 2023-12-15 15:51 | XMS_ITS | Encounter Summary ---
Author Organization [facility] Address [address] [place] [address] Care Team Providers Care Editor Managing Newspaper Name Role Phone Unavailable Primary Care Provider Unavailabl e Encounter Details Date Type Department Care Team (Latest Contact Info) Description 08/30/2014 10:20 EDT - 08/30/2014 23:59 EDT Hospital Encounter [address] [address] Unknown, Provider, Discharge Disposition: Home or Self Care Social History Tobacco Use Types Packs/Day Years Used Date Smoking Tobacco: Never Assessed Sex and Gender Information Value Date Recorded Sex Assigned at Not on file Gender Identity Male 01/20/2023 9:53 EDT Sexual Orientation Not on file documented as of this encounter Discharge Disposition Disposition Code Departure Means Destination Home or Self Long-Term documented in this encounter Plan of Treatment Not on file documented as of this encounter Visit Diagnoses Not on filedocumented in this encounter
--- OUTSIDE RECORDS SUMMARY | 2023-12-15 15:51 | XMS_ITS | Encounter Summary ---
Author Organization [facility] Address [address] [place] [address] Care Team Providers Care Fertilizer Loader Name Role Phone Unknown, Provider Primary Care Provider [phone] Encounter Details Date Type Department Care Team ([facility] st Contact Info) Description 08/30/2014 Results Only [facility] [phone] Yuniel Yeager MD [address] [facility] [address] [place] [address] Social History Tobacco Use Types Packs/Day Years Used Date Smoking Tobacco: Never Assessed Sex and Gender Information Value Date Recorded Sex Assigned at Not on file Gender Identity Male 01/20/2023 9:53 EDT Sexual Orientation Not on file documented as of this encounter Plan of Treatment Not on file documented as of this encounter Procedures Procedure Name Priority Date/Time Associated Diagnosis Comments SURGICAL PATHOLOGY Routine 08/30/2014 15 :45 EDT documented in this encounter Results * SURGICAL PATHOLOGY (08/30/2014 15:45 EDT) Pathology Report: SURGICAL PATHOLOGY REPORT Reports generated via electronic interface contain original data; however they are lacking the format of the original report. Caution should be taken when reading/interpreting unformatted reports. Name: ? DANYA ARGUETA ? Accession #: ? [id number] ? : ? 1970 (Age: 44) ??M ? Collect Date: ? 08/30/2014 ? Location: ? [facility] ? Receive Date: ? 08/31/2014 ? Provider: WOLF YEAGER MD Copy to: MEGAN ROBERTS MD ? 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 - See comment. 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 ??In addition, the presence of serrated epithelial changes may warrant closer follow up. Ultrasonic Tester sections of this case were reviewed at the intradepartmental GI consultation conference. (Dr. Arnold)/[facility] Document reviewed and electronically signed by: KRIS ARNOLD MD Report ??Date: 09/02/2014 13:57 By the signature above, the attending physician certifies that he/she has personally conducted a gross and/or microscopic examination of the described specimens and rendered or confirmed the above diagnosis. Specimen(s) Received: Rectum bx 20 cm Clinical History: S/P total colectomy (UC); R/O ulcerative proctitis, diversion colitis, EIC; clinical diagnosis code: ??578.1 Gross Description: ? Received in formalin labelled with proper patient identification (initials B, R) and rectum, biopsy, 20 cm are four pink-garduno tissues (0.2 x 0.1 x 0.1 cm to 0.3 x 0.2 x 0.1 cm). Entirely submitted in blocks 1-2. Mabel Garcia 09/01/2014 08:26 AM End of Report [facility] 08/30/2014 15:4 5 EDT 08/31/2014 15:45 EDT Yuniel Yeager MD PATHOLOGY ORDERABLES [facility] [address] [place] [address] documented in this encounter Visit Diagnoses Not on filedocumented in this encounter Care Teams Fertilizer Loader Relationship Specialty Start Date End Date Unknown, Provider, PCP - General 08/31/14 01/11/20 documented as of this encounter
--- OUTSIDE RECORDS SUMMARY | 2023-12-15 15:51 | XMS_ITS | Encounter Summary ---
Author Organization [facility] Address [address] [place] [address] Care Team Providers Care Shuttle Inspector Name Role Phone Lisa Mayorga MD Primary Care Provider [phone] Encounter Details Date Type Department Care Team (Late st Contact Info) Description 01/23/2023 Orders Only [facility] General Surgery - [address] [address] Aylin Pepper, MATTHEW [address] [place] [address] Social History Tobacco Use Types Packs/Day Years [...] on file documented as of this encounter Ordered Prescriptions Prescription Sig Dispensed Refills Start Date End Da te hydrocortisone (ANUSOL-HC) 2.5 % rectal cream Place 1 Application rectally 2 times daily. 28 g 2 01/23/2023 03/21/2023 documented in this encounter Progress Notes * Aylin Pepper, RN - 01/23/2023 1006 EDT [facility] pharmacy [facility] has sent a cover my med P/A for the proctofoam ordered by Dr Flores on 01/20/23. Patient insurance will not cover an combination rectal product. They will cover anusol HC rectal cream with a $12 copay. New script sent to the above pharmacy. documented in this encounter Plan of Treatment Not on file documented as of this encounter Visit Diagnoses Not on filedocumented in this encounter Discontinued Medications Medication Sig Discontinue Reason Start Date End Da te hydrocortisone-pramoxi ne (ANALPRAM-HC) 2.5-1 % rectal cream One rectal application twice daily until scheduled surgery. Alternate therapy 01/23/2023 01/23/2023 documented as of this encounter Care Teams Shuttle Inspector Relationship Specialty Start Date End Date Lisa Mayorga MD [address] [place] [id number] PCP - General 01/12/20 documented as of this encounter
--- OUTSIDE RECORDS SUMMARY | 2023-12-15 15:51 | XMS_ITS | Encounter Summary ---
Author Organization [facility] Address [address] [place] [address] Care Team Providers Care Immigration Case Worker Name Role Phone Lisa Mayorga MD Primary Care Provider [phone] Encounter Details Date Type Department Care Team ([facility] st Contact Info) Description 01/23/2023 Orders Only [facility] General Surgery - [facility] [address] [place] [address] Aylin Pepper RN [address] [place] [address] Social History Tobacco Use Types Packs/Day Years [...] Dispensed Refills Start Date End Da te hydrocortisone-pramoxin e (ANALPRAM-HC) 2.5-1 % rectal cream One rectal application twice daily until scheduled surgery. 30 g 2 01/23/2023 01/23/2023 documented in this encounter Plan of Treatment Not on file documented as of this encounter Visit Diagnoses Not on filedocumented in this encounter Discontinued Medications Medication Sig Discontinue Reason Start Date End Da te hydrocortisone-pramoxi ne (PROCTOFOAM HC) rectal foam Place 1 Applicator rectally every 12 hours. Order modification 01/20/2023 01/23/2023 documented as of this encounter Care Teams Immigration Case Worker Relationship Specialty Start Date End Date Lisa Mayorga MD [address] [place] [address] PCP - General 01/12/20 documented as of this encounter
--- OUTSIDE RECORDS SUMMARY | 2023-12-15 15:51 | XMS_ITS | Encounter Summary ---
Author Organization [facility] Address [address] [place] [address] Care Team Providers Care Harpooner Name Role Phone Lisa Mayorga MD Primary Care Provider [phone] Reason for Visit * (Routine/Next Available) - Receiving Office to Obtain Authorization Specialty Diagnoses / Procedures Referred By Sheba childs Referred To Contact Procedures CT OUTSIDE IMAGES ABDOMEN PELVIS Imaging, External Referral ID Status Reason Start Date Expiration Date Visits Requested Visits Authorized [id number] Receiving Office to Obtain Authorization 01/17/2023 1 1 Encounter Details Date Type Department Care Team (Latest Contact Info) Description 09/28/2020 - 09/28/2020 23:59 EDT Hospital Encounter [facility] Secondary Reads [place] Discharge Disposition: Home or Self Care Social History Tobacco Use Types Packs/Day Years Used Date Smoking Tobacco: Never Assessed Interpersonal Safety Answer Date Record ed Physically [...] Comments CT OUTSIDE IMAGES ABDOMEN PELVIS Routine 09/28/2020 13:21 EDT documented in this encounter Results * CT OUTSIDE IMAGES ABDOMEN PELVIS (09/28/2020 13:21 EDT) Narrative 01/17/2023 13:21 EDT This is a non-reportable exam. External Imaging IMG OTHER IMAGING OR DERABLES documented in this encounter Visit Diagnoses Not on filedocumented in this encounter Care Teams Harpooner Relationship Specialty Start Date End Date Lisa Mayorga MD [address] [place] [address] PCP - General 01/12/20 documented as of this encounter
--- OUTSIDE RECORDS SUMMARY | 2023-12-15 15:51 | XMS_ITS | Encounter Summary ---
Author Organization [facility] Address [address] [place] [address] Care Team Providers Care Beam Racker Name Role Phone Lisa Mayorga MD Primary Care Provider [phone] Reason for Referral * Radiology Services (Routine/Next Available) - Authorization Not Required Specialty Diagnoses / Procedures Referred By Carlosac t Referred To Contact Diagnoses Proctitis Procedures FL BARIUM ENEMA FULL COLUMN Howard Flores MD [address] [place] [phone] [facility] Referral ID Status Reason Start Date Expiration Date Visits Requested Visits Authorized [id number] Authorization Not Required 01/20/2023 1 1 Reason for Visit * Radiology Services (Routine/Next Available) - Authorization Not Required Specialty Diagnoses / Procedures Referred By Sheba childs Referred To Contact Diagnoses Proctitis Procedures FL BARIUM ENEMA FULL COLUMN Howard Flores MD [address] [place] [id number] [facility] Referral ID Status Reason Start Date Expiration Date Visits Requested Visits Authorized [id number] Authorization Not Required 01/20/2023 1 1 Encounter Details Date Type Department Care Team (Latest Contact Info) Description 01/20/2023 10:20 EDT - 01/20/2023 23:59 EDT Hospital [facility] Center Radiology Fluoroscopy - [address] [address] Proctitis Discharge Disposition: Home or Self Care Social [...] 1 Tablet by mouth 2 times daily. hydrocortisone-pramoxi ne (PROCTOFOAM HC) rectal foam Place 1 Applicator rectally every 12 hours. 10 g 1 01/20/2023 01/23/2023 documented as of this encounter Discharge Disposition Disposition Code Departure Means Destination Home or Self Care documented in this encounter Plan of Treatment Not on file documented as of this encounter Procedures Procedure Name Priority Date/Time Associated Diagnosis Comments FL BARIUM ENEMA FULL COLUMN Routine 01/20/2023 10:51 EDT Proctitis documented in this encounter Results * FL BARIUM ENEMA FULL COLUMN (01/20/2023 10:51 EDT) Anatomical Region Laterality Modality Body Radio Fluoroscop y 01/20/2023 11:1 8 EDT Addenda Addendum by Mic Olmstead MD on 01/20/2023 11:38 EDT Addendum: Further evaluation of the film and after discussion with attending surgeon the area at from 6 to 8 cm which is narrowed although may represent rectal stricture, may also represent a 2 cm sinus tract. [id number] Impressions 01/20/2023 11:18 EDT Rectal stump with areas of stricturing described above. [id number] Narrative 01/20/2023 11:18 EDT FL BARIUM ENEMA FULL COLUMN ??01/20/2023 10:30 AM Clinical History/Comments: s/p total abdominal colectomy. ??evaluate length of rectal stump;K62.89:Proctitis. Findings: Water-soluble enema was performed with a 9 balloontipped. The patient is noted to have ostomy and rectal stump. The rectal stump shows a short length. Overall length is approximately 8 cm.. In its midportion, it approximately 4 cm there is a focal moderate circumferential stricture. At its most proximal aspect around 6 cm to 8 cm there is a long segment stricture which ends abruptly. No extraluminal contrast is seen. Procedure Note Mic Olmstead MD - 01/20/2023 FL BARIUM ENEMA FULL COLUMN 01/20/2023 10:30 AM Clinical History/Comments: s/p total abdominal colectomy. evaluate length of rectalstump;K62.89:Proctitis. Findings: Water-soluble enema was performed with a 9 balloontipped. The patient is noted to have ostomy and rectal stump. The rectal stump shows a short length. Overall length is approximately 8cm.. In its midportion, it approximately 4 cm there is a focal moderatecircumferential stricture. At its most proximal aspect around 6 cm to 8 cmthere is a long segment stricture which ends abruptly. No extraluminalcontrast is seen. IMPRESSION Rectal stump with areas of stricturing described above. [id number] Howard Flores MD IMG FLUOROSCOPY RITA JUAN documented in this encounter Visit Diagnoses Diagnosis Proctitis Other specified disorder of rectum and anus documented in this encounter Care Teams Beam Racker Relationship Specialty Start Date End Date Lisa Mayorga MD [address] [place] [address] PCP - General 01/12/20 documented as of this encounter
--- OUTSIDE RECORDS SUMMARY | 2023-12-15 15:51 | XMS_ITS | Encounter Summary ---
Author Organization [facility] Address [address] [place] [address] Care Team Providers Care Imagery Analyst Name Role Phone Lisa Mayorga MD Primary Care Provider [phone] Reason for Visit * (Routine/Next Available) - Receiving Office to Obtain Authorization Specialty Diagnoses / Procedures Referred By Sheba childs Referred To Contact Procedures CT OUTSIDE IMAGES ABDOMEN PELVIS Imaging, External Referral ID Status Reason Start Date Expiration Date Visits Requested Visits Authorized [id number] Receiving Office to Obtain Authorization 01/17/2023 1 1 Encounter Details Date Type Department Care Team (Latest Contact Info) Description 02/08/2021 - 02/08/2021 23:59 EDT Hospital Encounter [facility] Secondary Reads [place] Discharge Disposition: Home [...] Comments CT OUTSIDE IMAGES ABDOMEN PELVIS Routine 02/08/2021 13:20 EDT documented in this encounter Results * CT OUTSIDE IMAGES ABDOMEN PELVIS (02/08/2021 13:20 EDT) Narrative 01/17/2023 13:20 EDT This is a non-reportable exam. External Imaging IMG OTHER IMAGING OR DERABLES documented in this encounter Visit Diagnoses Not on filedocumented in this encounter Care Teams Imagery Analyst Relationship Specialty Start Date End Date Lisa Mayorga MD [address] [place] [address] PCP - General 01/12/20 documented as of this encounter
--- OUTSIDE RECORDS SUMMARY | 2023-12-15 15:51 | XMS_ITS | Encounter Summary ---
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); Ulcerative colitis, unspecified, without complications (HCC-CMS) Social History Tobacco Use Types Packs/Day Years [...] Priority Date/Time Associated Diagnosis Comments SURGICAL PATHOLOGY Today 09/10/2022 9: 47 EDT 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 Please allow time for your provider to receive these results and explore management options, if applicable. 09/11/2022 12:37 [facility] Final Diagnosis A. RECTUM, BIOPSY: - Severe active chronic proctitis with ulceration and granulation tissue. - Negative for dysplasia and malignancy. 09/11/2022 12:37 [facility] Attestation By the signature below, the attending physician certifies that they have 1) personally conducted a gross and/or microscopic examination of the described specimen(s), and/or personally interpreted the results of laboratory testing of the described specimen(s), and 2) personally rendered or confirmed the above diagnosis. 09/11/2022 12:37 [facility] at 1237 Clinical History Chronic proctitis; ulcerative colitis 09/11/2022 12:37 [facility] Gross Description A. Received in formalin labelled with proper patient identification (initials B, R) and rectum bx are 3 garduno-pink tissues ranging in size from 0.2 x 0.2 x 0.1 cm up to 0.5 x 0.1 x 0.1 cm. Submitted intact in A1. NIA MORALES(ASCP) 09/10/2022 19:42 09/11/2022 12:37 T [facility] Performing Lab 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
--- OUTSIDE RECORDS SUMMARY | 2023-12-15 15:51 | XMS_ITS | Encounter Summary ---
Author Organization [facility] Address [address] [place] [address] Care Team Providers Care Digital Watch Assembler Name Role Phone Lisa Mayorga MD Primary Care Provider [phone] Reason for Visit * (Routine/Next Available) - Receiving Office to Obtain Authorization Specialty Diagnoses / Procedures Referred By Sheba childs Referred To Contact Procedures CT OUTSIDE IMAGES ABDOMEN PELVIS Imaging, External Referral ID Status Reason Start Date Expiration Date Visits Requested Visits Authorized [id number] Receiving Office to Obtain Authorization 01/17/2023 1 1 Encounter Details Date Type Department Care Team (Latest Contact Info) Description 08/17/2022 - 08/17/2022 23:59 EDT Hospital Encounter [facility] Secondary Reads [place] Discharge Disposition: [...] Comments CT OUTSIDE IMAGES ABDOMEN PELVIS Routine 08/17/2022 11:55 EDT documented in this encounter Results * CT OUTSIDE IMAGES ABDOMEN PELVIS (08/17/2022 11:55 EDT) Narrative 01/17/2023 11:55 EDT This is a non-reportable exam. External Imaging IMG OTHER IMAGING OR DERABLES documented in this encounter Visit Diagnoses Not on filedocumented in this encounter Care Teams Digital Watch Assembler Relationship Specialty Start Date End Date Lisa Mayorga MD [address] [place] [address] PCP - General 01/12/20 documented as of this encounter
--- OUTSIDE RECORDS SUMMARY | 2023-12-15 15:51 | XMS_ITS | Encounter Summary ---
Author Organization [facility] Address [address] [place] [address] Care Team Providers Care Forging Roll Operator Name Role Phone Lisa Mayorga MD Primary Care Provider [phone] Encounter Details Date Type Department Care Team (Late st Contact Info) Description 2020 Lab Requisition [facility] Pathology & Laboratory Medicine - Main [address] [address] Shelia Healy MD [address] [place] [id number] Encounter for other general examination Social History Tobacco Use Types Packs/Day Years [...] Date/Time Associated Diagnosis Comments SURGICAL PATHOLOGY Today 01/12/2020 16 :40 EDT Encounter for other general examination documented in this encounter Results * SURGICAL PATHOLOGY (01/12/2020 16:40 EDT) Final Diagnosis A. ILEOSTOMY, TAKEDOWN: - Small intestine with mucosal active inflammation, focal erosions and epithelial reactive changes; consistent with ileostomy. - Negative for dysplasia and malignancy. B. OMENTUM, RESECTION: - Benign fibroadipose tissue with focal vascular congestion. 01/18/2020 9:41 EDT [facility] Attestation By the signature below, the attending physician certifies that they have 1) personally conducted a gross and/or microscopic examination of the described specimen(s), and/or personally interpreted the results of laboratory testing of the described specimen(s), and 2) personally rendered or confirmed the above diagnosis. 01/18/2020 9:41 [facility] at 0941 Clinical History Small-bowel obstruction Parastomal hernia S/P subtotal colectomy for ulcerative colitis 01/18/2020 9:41 T [facility] Gross Description A. Received in formalin labelled with proper patient identification (initials B, R) and ileostomy is an ileostomy specimen (1.5 cm in length by 2.0 cm in diameter). There is a staple line along the distal aspect of the specimen. The staple line is removed and the underlying parenchyma is inked black. There is a portion of garduno-white skin located along the proximal portion of the specimen (0.2 cm in maximum thickness). Sectioning reveals a small amount of garduno-ortiz colonic mucosa. No masses or lesions are identified. Shed Boss sections are submitted in A1-A3. B. Received in formalin labelled with proper patient identification (initials B, R) and omentum is a 5.3 x 5.0 x 1.5 cm portion of lobulated yellow adipose tissue. Sectioning reveals lobulated, yellow cut surfaces with some firm red-brown blood clot scattered throughout. No masses or lesions are identified. Shed Boss sections are submitted in B1-B3. Gabriela Arlene 01/14/2020 10:53 01/18/2020 9:41 EDT [facility] Performing Lab [facility] 01/18/2020 9:41 EDT [facility] Scanned Images 01/18/2020 9:41 T [facility] Tissue OSTOMY IRRIGATION / Unknown 01/12/2020 16:40 EDT 2020 21:45 EDT Tissue specimen (specimen) OMENTUM STRUCTURE / Unknown 01/12/2020 17:45 EDT 2020 21:45 EDT Shelia Healy MD PATHOLOGY ORDERABLES [facility] [address] [place] [address] documented in this encounter Visit Diagnoses Diagnosis Encounter for other general examination documented in this encounter Additional Health Concerns Infection Onset Date Last Indicated Resolved Time R/O COVID-19 03/23/2023 03/23/2023 03/23/2023 10:3 6 EDT documented as of this encounter Care Teams Forging Roll Operator Relationship Specialty Start Date End Date Lisa Mayorga MD [address] [place] [id number] PCP - General 01/12/20 documented as of this encounter
--- OUTSIDE RECORDS SUMMARY | 2023-12-15 15:51 | XMS_ITS | Encounter Summary ---
Author Organization [facility] Address [address] [place] [address] Care Team Providers Care Assembler Gold Frame Name Role Phone Unavailable Primary Care Provider Unavailabl e Encounter Details Date Type Department Care Team (Latest Contact Info) Description 08/30/2014 10:10 EDT - 08/30/2014 10:19 EDT Hospital Encounter [address] [address] Unknown, Provider, Discharge Disposition: Home or Self Care Social History Tobacco Use Types Packs/Day Years Used Date Smoking Tobacco: Never Assessed Sex and Gender Information Value Date Recorded Sex Assigned at Not on file Gender Identity Male 01/20/2023 9:53 EDT Sexual Orientation Not on file documented as of this encounter Discharge Disposition Disposition Code Departure Means Destination Home or Self Longterm documented in this encounter Plan of Treatment Not on file documented as of this encounter Visit Diagnoses Not on filedocumented in this encounter
--- OUTSIDE RECORDS SUMMARY | 2023-12-15 15:51 | XMS_ITS | Encounter Summary ---
Author Organization [facility] Address [address] [place] [address] Care Team Providers Care Fish Farmer Name Role Phone Lisa Mayorga MD Primary Care Provider Reason for Visit * (Routine/Next Available) - Receiving Office to Obtain Authorization Specialty Diagnoses / Procedures Referred By Sheba childs Referred To Contact Procedures US OUTSIDE IMAGES BODY Imaging, External Referral ID Status Reason Start Date Expiration Date Visits Requested Visits Authorized [id number] Receiving Office to Obtain Authorization 01/17/2023 1 1 Encounter Details Date Type Department Care Team (Latest Contact Info) Description 10/03/2020 - 10/03/2020 23:59 EDT Hospital Encounter [facility] Secondary Reads [place] Discharge Disposition: [...] Name Priority Date/Time Associated Diagnosis Comments US OUTSIDE IMAGES BODY Routine 10/03/2020 13:12 EDT documented in this encounter Results * US OUTSIDE IMAGES BODY (10/03/2020 13:12 EDT) Narrative 01/17/2023 13:12 EDT This is a non-reportable exam. External Imaging IMG OTHER IMAGING OR DERABLES documented in this encounter Visit Diagnoses Not on filedocumented in this encounter Care Teams Fish Farmer Relationship Specialty Start Date End Date Lisa Mayorga MD [address] [place] [address] PCP - General 01/12/20 documented as of this encounter
--- OUTSIDE RECORDS SUMMARY | 2023-12-15 15:51 | XMS_ITS | Encounter Summary ---
Author Organization [facility] Address [address] [place] [address] Care Team Providers Care Shower Room Attendant Name Role Phone Lisa Mayorga MD Primary Care Provider [phone] Reason for Visit * (Routine/Next Available) - Receiving Office to Obtain Authorization Specialty Diagnoses / Procedures Referred By Sheba childs Referred To Contact Procedures CT OUTSIDE IMAGES ABDOMEN PELVIS Imaging, External Referral ID Status Reason Start Date Expiration Date Visits Requested Visits Authorized [id number] Receiving Office to Obtain Authorization 01/17/2023 1 1 Encounter Details Date Type Department Care Team (Latest Contact Info) Description 10/06/2020 - 10/06/2020 23:59 EDT Hospital Encounter [facility] Secondary [place] Discharge Disposition: Home or [...] Comments CT OUTSIDE IMAGES ABDOMEN PELVIS Routine 10/06/2020 13:10 EDT documented in this encounter Results * CT OUTSIDE IMAGES ABDOMEN PELVIS (10/06/2020 13:10 EDT) Narrative 01/17/2023 13:10 EDT This is a non-reportable exam. External Imaging IMG OTHER IMAGING OR DERABLES documented in this encounter Visit Diagnoses Not on filedocumented in this encounter Care Teams Shower Room Attendant Relationship Specialty Start Date End Date Lisa Mayorga MD [address] [place] [address] PCP - General 01/12/20 documented as of this encounter
--- OUTSIDE RECORDS SUMMARY | 2023-12-15 15:51 | XMS_ITS | Encounter Summary ---
Author Organization [facility] Address [address] [place] [address] Care Team Providers Care Dairy Grazer Name Role Phone Lisa Mayorga MD Primary Care Provider [phone] Reason for Referral * Radiology Services (Routine/Next Available) - Authorization Not Required Specialty Diagnoses / Procedures Referred By Contac t Referred To Contact Diagnoses Proctitis Procedures [place] BARIUM ENEMA FULL COLUMN Manny Prado MD [address] [place] [id number] [facility] Referral ID Status Reason Start Date Expiration Date Visits Requested Visits Authorized [id number] Authorization Not Required 01/20/2023 1 1 Reason for Visit * Reason Comments New Patient Visit Flex Sig Rectal Stum p * Referral (Routine) - Receiving Office to Obtain Authorization Specialty Diagnoses / Procedures Referred By Contac t Referred To Contact General Surgery Diagnoses 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 ([facility]) Lisa Mayorga MD [address] [place] [id number] Manny Prado MD [address] [phone] Referral ID Status Reason Start Date Expiration Date Visits Requested Visits Authorized [id number] Receiving Office to Obtain Authorization 1 1 Encounter Details Date Type Department Care Team ([facility] st Contact Info) Description 01/20/2023 8:45 EDT Office Visit [facility] General Surgery - [facility] [address] [place], [place] [address] Manny Prado MD [address] [facility], [address] [place] [address] Proctitis (Primary Dx) Social History Tobacco Use Types [...] Sign Reading Time Taken Comments Blood Pressure 130/70 01/20/2023 0835 EDT Pulse 60 01/20/2023 0835 EDT Temperature - - Respiratory Rate - - Oxygen Saturation - - Inhaled Oxygen Concentration - - Weight 81.7 kg (180 lb 3.2 oz) 01/20/2023 0835 E DT Height 175.3 cm (5' 9) 01/20/2023 0835 EDT Body Mass Index 26.61 01/20/2023 0835 EDT documented in this encounter Ordered Prescriptions Prescription Sig Dispensed Refills Start Date End Da te hydrocortisone-pramoxine (PROCTOFOAM HC) rectal foam Place 1 Applicator rectally every 12 hours. 10 g 1 01/20/2023 01/23/2023 documented in this encounter Progress Notes * Manny Prado MD - 01/20/2023 0845 EDT This office note has been dictated. * Deya Nino RN - 01/20/2023 0845 EDT Images from the original note were not included. 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 The patient does quite well withhis ileostomy. He did have resiting of his ileostomy due to a hernia and he now has a recurrent hernia, but it is not a problem. 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 PAST MEDICAL HISTORY, MEDICATIONS, ALLERGIES, FAMILY AND SOCIAL HISTORY: All reviewed as of today in [facility]. PHYSICAL EXAMINATION: Constitutional examination is normal. HEENT exam is unremarkable. Lungs are clear. Cardiac exam is regular rhythm. Abdomen is soft, nontender, no palpable masses. Ileostomy in place. Well healed low midline incision. External anal exam is normal. Digital exam is tender appropriately since he is out of circuit, but no abnormalities. IMPRESSION: Symptomatic residual rectal stump. RECOMMENDATION: Flexible sigmoidoscopy. PROCEDURE: Flexible sigmoidoscope was advanced transanally into the rectal stump. There is significant inflammation. I am able to pass the scope approximately 6 cm proximal to the dentate line and then there is a very small opening, and it is difficult to determine the length of the stump beyond this. It will not accept the scope. PLAN: Symptomatic rectal stump in someone who is status post total abdominal colectomy. Length of rectal stump remains unknown. We will plan a water soluble contrast enema and fluoroscopy today. If the stump is relatively short as expected, we will plan perineal proctectomy. Should the stump be longer, we may need to have an abdominal component. Risks including hemorrhage, infection, wound infection, hernia, injury to surrounding structures including bladder, nerves of sexual function and ureters all explained to the patient. Alternatives of continued nonoperative management explained including Cortifoam. The risk of cancer is also explained to him. He would like to have his rectum removed.We will recontact him after his water soluble contrast enema today to evaluate the length of his stump and make final operative plans. Manny Prado MD, FACS / CD Dictation ID: [id number] cc: Lisa Mayorga MD, [facility], [address] [place] [address] [address], [place] [address] documented in this encounter Miscellaneous Notes * Addendum Note - Manny Prado MD - 01/20/2023 0845 EDTAddended by: MANNY PRADO on: 01/20/2023 09:30 Modules accepted: Orders, SmartSet * Addendum Note - Marsha Iyer RN - 01/20/202345 EDTAddended by: MARSHA IYER on: 01/20/2023 10:06 Modules accepted: Orders documented in this encounter Plan of Treatment Not on file documented as of this encounter Results * FL BARIUM ENEMA [...] also represent a 2 cm sinus tract. [id number] Impressions 01/20/2023 11:18 EDT Rectal stump with areas of stricturing described above. [id number] Narrative 01/20/2023 11:18 EDT FL BARIUM ENEMA [...] stump with areas of stricturing described above. [id number] Manny Prado MD IMG FLUOROSCOPY RITA JUAN documented in this encounter Visit Diagnoses Diagnosis Proctitis- Primary Other specified disorder of rectum and anus Proctitis Other specified disorder of rectum and anus documented in this encounter Historical Medications * This list may reflect changes made after this encounter. Medication Sig Dispensed Refills Start Date End Date ADVAIR DISKUS 250-50 mcg/dose diskus inhaler 12/16/2022 added in this encounter Care Teams Dairy Grazer Relationship Specialty Start Date End Date Lisa Mayorga MD [address] [place] [address] PCP - General 01/12/20 documented as of this encounter
--- NOTE | 2023-12-15 19:19 | ED.GENADUL_ITS ---
Discharge Plan Disposition Patient Disposition: Home Condition: Improving Discharge Details Clinical Impression: Muscle spasm Primary Care Provider: Lisa Mayorga V ED Provider: Foster Colón Home Meds and New Rx's Prescriptions: New lidocaine [Lidoderm] 5 % adhesive patch,medicated 1 patch topical DAILY PRNQty: 15 0RF Rx Instructions: leave on most painful area for up to 12 hrs cyclobenzaprine 5 mg tablet 5 mg PO QHS PRN (Reason: muscle spasm) Qty: 7 0RF No Action tadalafil [Cialis] 5 mg tablet 5 mg PO DAILY Qty: 90 3RF magnesium carb,citrate,oxide 300 mg magnesium tablet 300 mg PO DAILY vitamin B complex Capsule 1 cap PO DAILY omega 7-wlb-pyc-fish oil [Fish Oil] 300-1,000 mg capsule 1 cap PO DAILY coenzyme Q10 [Co Q-10] 100 mg capsule 100 mg PO DAILY cholecalciferol (vitamin D3) 25 mcg (1,000 unit) capsule 25 mcg PO DAILY CBD oil 16 mg drops See Rx Instructions PO/SL 1XD Rx Instructions: 16 Drops Orally or Sublingually 1 time daily; albuterol sulfate 90 mcg/actuation HFA aerosol inhaler 2 inh INHALATION TID Patient Comments: INHALE 2 PUFFS BY MOUTH EVERY 4 HOURS NEEDED fluticasone propion-salmeterol [Advair Diskus] 250-50 mcg/dose blister with device 1 inh INHALATION BID PRN Patient Comments: Inhale 1 puff by mouth twice a day ondansetron 4 mg tablet,disintegrating 4 mg PO Q8H PRN (Reason: nausea & vomiting) Qty: 30 0RF Discharge Instructions Instructions: Muscle Spasm ED Additional Instructions: Please follow-up closely with your primary care physician. Return to the Emergency Department for any worsening symptoms HPI General Date/Time Provider Initiated Documentation: 12/15/23 19:12 . HPI Narrative: 53-year-old male history of lumbar spinal fusion, ulcerative colitis with remote colectomy, presents with lower back pain right lumbar in nature after pushing his lawnmower up a hill this past weekend, denies bladder issues, denies neurologic symptomatology in lower extremities Related Data Home Medications ?Medication ?Instructions ?Recorded ?Confirmed cholecalciferol (vitamin D3) 25 25 mcg PO DAILY 04/29/22 12/15/23 mcg (1,000 unit) capsule coenzyme Q10 100 mg capsule (Co 100 mg PO DAILY 04/29/22 12/15/23 Q-10) magnesium carb,citrate,oxide 300 mg PO DAILY 04/29/22 12/15/23 omega 0-bjs-yto-fish oil 300 1 cap PO DAILY 04/29/22 12/15/23 mg-1,000 mg capsule (Fish Oil) vitamin B complex 1 cap PO DAILY 04/29/22 12/15/23 albuterol sulfate 90 mcg/actuation 2 inh inhalation TID 06/05/22 12/15/23 aerosol inhaler CBD oil See Rx Instructions PO/SL 1XD 08/23/22 12/15/23 fluticasone 250 mcg-salmeterol 50 1 inh inhalation BID PRN 07/07/23 12/15/23 mcg/dose blistr powdr for inhalation (Advair Diskus) tadalafil 5 mg tablet (Cialis) 5 mg PO DAILY #90 tabs 07/08/23 12/15/23 ondansetron 4 mg disintegrating 4 mg PO Q8H PRN nausea & vomiting 09/16/23 12/15/23 tablet #30 tabs cyclobenzaprine 5 mg tablet 5 mg PO QHS PRN muscle spasm #7 12/15/23 tabs lidocaine 5 % topical patch 1 patch topical DAILY PRN #15 ea 12/15/23 (Lidoderm) Previous Rx's ?Medication ?Instructions ?Recorded tadalafil 5 mg tablet (Cialis) 5 mg PO DAILY #90 tabs 07/08/23 ondansetron 4 mg disintegrating 4 mg PO Q8H PRN nausea & vomiting 09/16/23 tablet #30 tabs cyclobenzaprine 5 mg tablet 5 mg PO QHS PRN muscle spasm #7 12/15/23 tabs lidocaine 5 % topical patch 1 patch topical DAILY PRN #15 ea 12/15/23 (Lidoderm) Allergies Allergy/AdvReac Type Severity Reaction Status Date / Time ibuprofen Allergy Severe tongue Verified 12/15/23 15:38 swelling NSAIDS (Non-Steroidal Allergy Severe Anaphylaxis Unverified 12/15/23 15:38 Anti-Inflamma tamsulosin (From Flomax) Allergy Intermediate breathing Verified 12/15/23 15:38 difficulty Sulfa (Sulfonamide Allergy shortness Verified 12/15/23 15:38 Antibiotics) of breath, rash bupropion (From Wellbutrin) AdvReac Severe suicidal Verified 12/15/23 15:38 thoughts zolpidem (From Ambien) AdvReac Severe sleep Verified 12/15/23 15:38 walk/drive atenolol AdvReac Unknown amnesia Verified 12/15/23 15:38 General Stated Complaint: Nk/Back Pain MERLE: 4 Course Vital Signs Vital signs: Vital Signs Temperature 36.9 C 12/15/23 15:34 Pulse 94 H 12/15/23 15:34 Respiratory Rate 14 12/15/23 15:34 Blood Pressure 150/90 H 12/15/23 15:34 Pulse Oximetry 95 12/15/23 15:34 Temperature 36.9 C 12/15/23 15:34 Temperature Source Skin 12/15/23 15:34 Pulse 94 H 12/15/23 15:34 Respiratory Rate 14 12/15/23 15:34 Blood Pressure 150/90 H 12/15/23 15:34 Blood Pressure Position Sitting 12/15/23 15:34 Pulse Oximetry 95 12/15/23 15:34 Oxygen Delivery Method Room Air 12/15/23 15:34 Oxygen Flow Rate 0 12/15/23 15:34 Pain Level 8 12/15/23 15:34 Medical Decision Making 53-year-old male history of lumbar spinal fusion, ulcerative colitis with remote colectomy, presents with lower back pain right lumbar in nature after pushing his lawnmower up a hill this past weekend, denies bladder issues, denies neurologic symptomatology in lower extremities; afebrile nontoxic hemodynamically stable, ambulatory without assistance no midline spinal tenderness, full strength and sensation bilateral lower extremities 5-5 strength, no ataxia; likely lumbar muscle spasm versus early sciatica versus mild bulging disc no evidence of cauda equina; no evidence of trauma, low suspicion for spinal epidural abscess or spinal hematoma. Trial of analgesia anti-inflammatory muscle relaxant likely home with close follow-up pending reassessment after medication 21: 08 patient resting notably feeling better after medication. Family coming to pick him up. Home care instructions and return precautions given Quality:SDOH Health Related Social Needs: No Data to Display PFSH All Active Problems (Updated 12/15/23 @ 21:09 by Foster Colón MD) Muscle spasm (Acute) Incomplete emptying of bladder (Acute) Tachycardia (Acute) History of atrial fibrillation (Acute) has had ablation Proctitis (Acute) disuse/diversion proctitis Hx of ulcerative colitis (Acute) Bilateral inguinal hernia (Acute) Laceration of finger of left hand (Acute) Laceration volar fingertip left middle finger Date of injury: 04/26/18 Fracture of distal phalanx of finger of left hand (Acute) Asymptomatic fracture of the distal phalanx of the left ring finger Date of injury: 04/26/[address] (Acute) Psoriasis (Chronic) Depression with anxiety (Acute) Hypertension (Chronic) Chronic recurrent pilonidal cyst (Acute) Asthma, moderate persistent (Acute) Degenerative joint disease (DJD) of lumbar spine (Acute) Bronchitis, obstructive, chronic (Acute) Environmental allergies (Acute) Hypogonadism, male (Acute) Bilateral inguinal hernia (Acute) Medical History Enteritis Former smoker Hyperlipidemia PTSD (post-traumatic stress disorder) SVT (supraventricular tachycardia) Ulcerative proctitis Surgical History H/O cardiac radiofrequency ablation History of back surgery 2 rods, 4 screws, L4-5 2006 [place], [place] H/O total colectomy H/O hernia repair (~01/2020) [facility] around ileostomy Social History Smoking/Tobacco Use Status: Former Tobacco Use Quit Date: 06/02/06 Smoking risk assessment performed?: Yes Alcohol Intake: former Drug use: Never Substance use type: does not use Housing: house Current gender identity: male Do you feel safe in your relationship?: Yes
[2023-12-15] MEDS: Lidocaine 5% Patch 1 PATCH TP (19:33)
[2023-12-15] MEDS: Dexamethasone 10 MG/ML VIAL PO (19:33)
[2023-12-15] MEDS: Cyclobenzaprine 10 MG TAB PO (19:33)
[2023-12-15 21:20] VITALS: BP 167/99; PULSE 89; RESP 14; O2SAT 100
== END 2023-12-15 21:20 | disposition home or self-care (01) ==
PROVIDERS: Emergency Provider Emergency Medicine; PCP Family Medicine
DX: M54.50 Low back pain, unspecified (principal); M62.830 Muscle spasm of back; I10 Essential (primary) hypertension; E78.5 Hyperlipidemia, unspecified; Z98.1 Arthrodesis status; Z90.49 Acquired absence of other specified parts of digestive tract; Z87.891 Personal history of nicotine dependence
CPT/HCPCS: 99283; J1100

== ENCOUNTER → 2024-02-24 10:45 | Outpatient (BNVA) | payer MEDICARE, SELFPAY | PROVIDERS: PCP Family Medicine; Referring Provider Family Medicine; Visit Provider Surgery | DX: R10.31 Right lower quadrant pain (principal); R10.32 Left lower quadrant pain | CPT/HCPCS: 99213 ==

== ENCOUNTER 2024-03-03 00:57 | Outpatient (CLI) | payer MEDICARE, SELFPAY ==
--- NOTE | 2024-03-03 08:00 | DI.US_ITS ---
Exam(s) US HERNIA EXAM: US HERNIA CLINICAL HISTORY: ? recurrent hernias bilaterally,RLQ AND LLQ PAIN,R10.32,R10.31. TECHNIQUE: Ultrasound was performed using standard protocol. COMPARISON: US US RENAL from 07/08/[address] ABDOMEN PELVIS W from 09/16/2023 FINDINGS: Sonographic assessment utilizing grayscale and color Doppler imaging was performed and targeted to th e area of clinical concern. Both inguinal regions were scanned. Shadowing areas are noted in both inguinal regions likely related to prior surgical repair. No evide nce of recurrence hernia or fluid collection. IMPRESSION: No evidence of recurrence of inguinal hernias. DATA REPOSITORY:
== END 2024-03-03 01:17 ==
PROVIDERS: PCP Family Medicine; Visit Provider Surgery
DX: R10.31 Right lower quadrant pain (principal); R10.32 Left lower quadrant pain
CPT/HCPCS: 76857

== ENCOUNTER 2024-08-10 19:39 | Emergency (ER) | payer MEDICARE, SELFPAY ==
[2024-08-10 19:42] VITALS: BP 175/127; PULSE 110; RESP 20; TEMP 36.6; O2SAT 95
--- NOTE | 2024-08-10 20:15 | DI.CT_ITS ---
Exam(s) CT ABDOMEN PELVIS W EXAM: CT ABDOMEN PELVIS W CLINICAL HISTORY: EVAL FOR BOWEL OBSTRUCTION TECHNIQUE: Imaging Protocol: Axial computed tomography images with coronal and sagittal reformatted images were created and reviewed. CONTRAST MATERIAL: Intravenous: Omnipaque 350 Contrast volume:100 mL Oral: No COMPARISON: CT CT ABDOMEN PELVIS W from 09/16/2023 FINDINGS: ABDOMEN: Lung Bases: No acute abnormality. Liver: Normal density. No measurable mass. Portal, Superior Mesenteric, and Splenic Veins: Unremarkable. Gallbladder and Biliary Tract: No radiodense calculus or dilation. Pancreas: Normal density, no abnormal calcifications or inflammatory process. Spleen: Normal. Adrenals: No masses seen. Kidneys: Normal size, contour and axis. No radiodense stones or obstructive uropathy. No masses seen. Abdominal Aorta: Abdominal portion non-dilated. Atherosclerotic calcification is present. Bowel: There is been a total colectomy. There is an enterostomy in the right anterior abdominal wall . There is no evidence of bowel obstruction or bowel wall thickening. There is no evidence of pneum atosis. Peritoneal Cavity: No ascites, collection or mesenteric inflammatory response. No free air. Lymph Nodes: Within normal limits. Bones: Within normal limits for the patient's age. Posterior spinal surgery at L5-S1. Soft Tissues: There findings suggestive of prior bilateral inguinal hernia repairs. There is a small fat containing umbilical hernia. PELVIS: Bladder: Symmetric distention, no gross wall thickening. Reproductive Organs: Unremarkable as visualized. Lymph Nodes: Within normal limits. Bones: Within normal limits for the patient's age. IMPRESSION: No acute abdominal or pelvic process. RADIATION DOSE DELIVERED: 475.79mGy.cm Total DLP DATA REPOSITORY: All CT scans at this facility are submitted to the National Radiology Data Registry (NRDR) Dose Index Registry (DIR) with the [employer] (A[employer]). RADIATION OPTIMIZATION: All CT scans at this facility use at least one of these dose optimization te chniques: automated exposure control; mA and/or kV adjustment per patient size (includes targeted exa ms where dose is matched to clinical indication); or iterative reconstruction.
--- NOTE | 2024-08-10 20:37 | W.ED.GENAD ---
Discharge Plan Disposition Patient Disposition: Home Discharge Details Clinical Impression: Abdominal pain Primary Care Provider: Lisa Mayorga V ED Provider: Jatin Hummel Home Meds and New Rx's Prescriptions: No Action magnesium carb,citrate,oxide 300 mg magnesium tablet 300 mg PO DAILY vitamin B complex Capsule 1 cap PO DAILY omega 2-zmu-rqk-fish oil [Fish Oil] 300-1,000 mg capsule 1 cap PO DAILY coenzyme Q10 [Co Q-10] 100 mg capsule 100 mg PO DAILY cholecalciferol (vitamin D3) 25 mcg (1,000 unit) capsule 25 mcg PO DAILY CBD oil 16 mg drops See Rx Instructions PO/SL 1XD Rx Instructions: 16 Drops Orally or Sublingually 1 time daily; diltiazem HCl 360 mg capsule,extended release 24 hr 360 mg PO DAILY albuterol sulfate 90 mcg/actuation HFA aerosol inhaler 2 inh INHALATION TID Patient Comments: INHALE 2 PUFFS BY MOUTH EVERY 4 HOURS NEEDED fluticasone propion-salmeterol [Advair Diskus] 250-50 mcg/dose blister with device 1 inh INHALATION BID PRN Patient Comments: Inhale 1 puff by mouth twice a day prednisone 5 mg tablet 5 mg PO DAILY Patient Comments: TAKE 3 TABLETS BY MOUTH ONCE DAILY FOR 3 DAYS, THEN 2 TABS ONCE DAILY FOR 4 DAYS, THEN 1 TAB ONCE DAILY FOR 4 DAYS (ENOUGH FOR 2 COURSES FOR ASTHMA FLARES) zinc sulfate 66 mg tablet 66 mg PO DAILY ondansetron 4 mg tablet,disintegrating 4 mg PO Q8H PRN (Reason: nausea & vomiting) Qty: 30 0RF cyclobenzaprine 5 mg tablet 5 mg PO QHS PRN (Reason: muscle spasm) Qty: 7 0RF Discharge Instructions Additional Instructions: no signs of bowel obstruction today please monitor symptoms closely surgery clinic should contact you for follow up return to ED if you develop severe pain, vomiting or symptoms aren't improving HPI General Date/Time Provider Initiated Documentation: 08/10/24 19:45. Limitations to Documentation: no limitations. Information obtained by: patient. HPI Narrative: 54-year-old gentleman with past medical history of ulcerative colitis with multiple abdominal surgeries and ileostomy in place presents for evaluation of abdominal distention. He reports that several days ago his stoma retracted. He reports that typically his stump protrudes about 2 to 3 inches but it is now been withdrawn. He reports decreased stool output. For the last several nights, he has noted a large volume of gas entering his stoma bag, but only a very very small amount of stool. He has had some slight nausea without any vomiting. No fever. Today he reports almost no output into his stoma bag. He reports swelling and distention of his belly with significant pain. Related Data Home Medications ?Medication ?Instructions ?Recorded ?Confirmed cholecalciferol (vitamin D3) 25 25 mcg PO DAILY 04/29/22 08/10/24 mcg (1,000 unit) capsule coenzyme Q10 100 mg capsule (Co 100 mg PO DAILY 04/29/22 08/10/24 Q-10) magnesium carb,citrate,oxide 300 mg PO DAILY 04/29/22 08/10/24 omega 9-tep-jjf-fish oil 300 1 cap PO DAILY 04/29/22 08/10/24 mg-1,000 mg capsule (Fish Oil) vitamin B complex 1 cap PO DAILY 04/29/22 08/10/24 albuterol sulfate 90 mcg/actuation 2 inh inhalation TID 06/05/22 08/10/24 aerosol inhaler CBD oil See Rx Instructions PO/SL 1XD 08/23/22 08/10/24 fluticasone 250 mcg-salmeterol 50 1 inh inhalation BID PRN 07/07/23 08/10/24 mcg/dose blistr powdr for inhalation (Advair Diskus) ondansetron 4 mg disintegrating 4 mg PO Q8H PRN nausea & vomiting 09/16/23 08/10/24 tablet #30 tabs cyclobenzaprine 5 mg tablet 5 mg PO QHS PRN muscle spasm #7 12/15/23 08/10/24 tabs diltiazem HCl 360 mg capsule,24 360 mg PO DAILY 01/26/24 08/10/24 hr,extended release prednisone 5 mg tablet 5 mg PO DAILY 08/10/24 08/10/24 zinc sulfate 66 mg tablet 66 mg PO DAILY 08/10/24 08/10/24 Previous Rx's ?Medication ?Instructions ?Recorded ondansetron 4 mg disintegrating 4 mg PO Q8H PRN nausea & vomiting 09/16/23 tablet #30 tabs cyclobenzaprine 5 mg tablet 5 mg PO QHS PRN muscle spasm #7 12/15/23 tabs Allergies Allergy/AdvReac Type Severity Reaction Status Date / Time ibuprofen Allergy Severe tongue Verified 08/10/24 19:45 swelling NSAIDS (Non-Steroidal Allergy Severe Anaphylaxis Unverified 08/10/24 19:45 Anti-Inflamma tadalafil (From Cialis) Allergy Intermediate muscle pain Verified 08/10/24 19:45 tamsulosin (From Flomax) Allergy Intermediate breathing Verified 08/10/24 19:45 difficulty Sulfa (Sulfonamide Allergy shortness Verified 08/10/24 19:45 Antibiotics) of breath, rash bupropion (From Wellbutrin) AdvReac Severe suicidal Verified 08/10/24 19:45 thoughts zolpidem (From Ambien) AdvReac Severe sleep Verified 08/10/24 19:45 walk/drive atenolol AdvReac Unknown amnesia Verified 08/10/24 19:45 General Stated Complaint: Abd Prob MERLE: 3 Exam Narrative Exam Narrative: Review of Systems: All systems reviewed & are unremarkable except as noted in HPI and below Well-developed, no acute distress NCAT RRR Unlabored respiratory effort Distended abdomen, tender diffusely, empty stoma bag no focal neurologic deficits Course Vital Signs Vital signs: Vital Signs Temperature 36.6 C 08/10/24 19:42 Pulse 110 H 08/10/24 19:42 Respiratory Rate 20 08/10/24 19:42 Blood Pressure 175/127 H 08/10/24 19:42 Pulse Oximetry 95 08/10/24 19:42 Temperature 36.6 C 08/10/24 19:42 Temperature Source Oral 08/10/24 19:42 Pulse 110 H 08/10/24 19:42 Respiratory Rate 20 08/10/24 19:42 Blood Pressure 175/127 H 08/10/24 19:42 Blood Pressure Position Sitting 08/10/24 19:42 Pulse Oximetry 95 08/10/24 19:42 Oxygen Delivery Method Room Air 08/10/24 19:42 Oxygen Flow Rate 0 08/10/24 19:42 Pain Level 7 08/10/24 19:42 Medical Decision Making Emergent evaluation of abdominal pain and distention. Patient has high risk for bowel obstruction and symptoms fairly consistent with that. He declines any pain medication at this time. will check labs and CT. Lab work reviewed, no white blood cell count anemia or electrolyte derangement. Renal and liver function within normal limits. CT report reviewed and no obstruction is noted. I discussed the patient's case symptoms and CT findings with general surgery who concurs that there is no obstruction present and recommends discharge home. He said on chart review this is happened previously and that symptoms typically self resolved. I advised patient to monitor symptoms closely, if he should develop severe pain vomiting fevers or symptoms are not improved over the next 24 hours he should return for reevaluation. I have reached out to general surgery clinic to get him seen this week for reevaluation. Patient feels comfortable with the plan of going home and continuing to watch symptoms. Quality:[facility] Health Related Social Needs: No Data to Display PFSH All Active Problems (Updated 08/10/24 @ 22:40 by Jatin Hummel MD) Abdominal pain (Acute) Bilateral groin pain (Acute) Acute low back pain (Acute) Inguinal pain (Acute) Incomplete emptying of bladder (Acute) Tachycardia (Acute) History of atrial fibrillation (Acute) has had ablation Proctitis (Acute) disuse/diversion proctitis Hx of ulcerative colitis (Acute) Bilateral inguinal hernia (Acute) Laceration of finger of left hand (Acute) Laceration volar fingertip left middle finger Date of injury: 04/26/18 Fracture of distal phalanx of finger of left hand (Acute) Asymptomatic fracture of the distal phalanx of the left ring finger Date of injury: 04/26/[address] (Acute) Psoriasis (Chronic) Depression with anxiety (Acute) Hypertension (Chronic) Chronic recurrent pilonidal cyst (Acute) Asthma, moderate persistent (Acute) Degenerative joint disease (DJD) of lumbar spine (Acute) Bronchitis, obstructive, chronic (Acute) Environmental allergies (Acute) Hypogonadism, male (Acute) Bilateral inguinal hernia (Acute) Medical History Enteritis Former smoker Hyperlipidemia PTSD (post-traumatic stress disorder) SVT (supraventricular tachycardia) Ulcerative proctitis Surgical History H/O cardiac radiofrequency ablation History of back surgery 2 rods, 4 screws, L4-5 2006 [place], [place] H/O total colectomy H/O hernia repair (~01/2020) [facility] around ileostomy Social History Smoking/Tobacco Use Status: Former Tobacco Use Quit Date: 06/02/06 Smoking risk assessment performed?: Yes Alcohol Intake: former Drug use: Never Substance use type: does not use Housing: house Current gender identity: male Do you feel safe in your relationship?: Yes
[2024-08-10] MEDS: Omnipaque 350 MG/ML 100 ML BTL IJ (20:41)
[2024-08-10] MEDS: Normal Saline - Diluent 50 ML VIAL IJ (20:42)
[2024-08-10 21:08] VITALS: BP 181/110; PULSE 90; RESP 18; O2SAT 96
[2024-08-10 21:27] LABS: Abs Immature Grans 0.04 10^3/uL (0.0-0.06); Absolute Basophil Count 0.04 10^3/uL (0.0-0.2); Absolute Eosinophil Count 0.27 10^3/uL (0.0-0.7); Absolute Lymphocyte Count 1.78 10^3/uL (1.2-3.4); Absolute Monocyte Count 0.69 10^3/uL (0.1-0.8); Absolute Neutrophil Count 5.32 10^3/uL (1.2-6.7); Basophils % 0.5 %; Eosinophils % 3.3 %; HCT 44.2 % (40.0-50.0); HGB 15.1 g/dL (13.5-17.5); Immature Grans % 0.5 %; Lymphocytes % 21.9 %; MCH 28.4 pg (27.0-33.0); MCHC 34.2 % (32.0-36.0); MCV 83 fL (80-95); MPV 9.2 fL (8.0-11.0); Monocytes % 8.5 %; Neutrophils % 65.3 %; Platelet Count 284 10^3/uL (130-400); RBC 5.32 10^6/uL (4.36-5.78); RDW-SD 39.2 fL; WBC 8.14 10^3/uL (4.4-10.8)
[2024-08-10 21:43] LABS: ALT 31 U/L (16-63); Albumin 3.6 g/dL (3.4-5.0); Alkaline Phosphatase 68 U/L (46-116); Anion Gap 8.8 mmol/L (3-11); BUN 14 mg/dL (7-18); Bilirubin, Total 0.6 mg/dL (0.2-1.0); CO2 28.2 mmol/L (21.0-32.0); CREATININE 0.9 mg/dL (0.70-1.30); Calcium 8.8 mg/dL (8.5-10.1); Chloride 103 mmol/L (98-107); Estimated GFR 100.86 (mL/min/1.73m2); Glucose 108 mg/dL (74-106); Potassium 3.6 mmol/L (3.5-5.1); Sodium 140 mmol/L (136-145); Total Protein 7.1 g/dL (6.4-8.2)
--- NOTE | 2024-08-10 21:52 | DI.VRAD_ITS ---
PROCEDURE INFORMATION: Exam: CT Abdomen And Pelvis With Contrast Exam date and time: 08/10/2024 8:47 PM Age: 54 years old Clinical indication: Abdominal pain; Generalized; Prior surgery; Surgery date: 6+ months; Surgery type: Colectomy, back surgery, hernia repair; Eval for bowel obstruction, TECHNIQUE: Imaging protocol: Computed tomography of the abdomen and pelvis with contrast. Contrast material: OMNIPAQUE 350; Contrast volume: 100 ml; Contrast route: INTRAVENOUS (IV); COMPARISON: CT ABDOMEN PELVIS W 09/16/2023 3:38 PM FINDINGS: Lungs: There is minimal bibasilar atelectasis. The lungs are otherwise normal. Pleural spaces: There is no evidence of pneumothorax. There are no pleural effusions present. Heart: The cardiac structures are normal. Liver: There is a diffuse decrease in hepatic parenchymal density, consistent with mild fatty infiltration. There are no focal liver lesions present. There is no evidence of intrahepatic or extrahepatic biliary ductal dilation. Gallbladder and biliary ducts: The gallbladder is normal. There is no cholelitiasis, wall thickening or pericholecystic fluid to suggest cholecystitis. Pancreas: The pancreas is normal. Spleen: The spleen is normal. Adrenal glands: The adrenal glands are normal without evidence of mass or enlargement. Kidneys and ureters: The kidneys are normal no evidence of nephrolithiasis or hydronephrosis. The ureters are normal caliber and follow a normal caliber and course. Stomach and bowel: There is no evidence of intestinal obstruction. There is an ileostomy present within the right lower quadrant of the abdomen. There has been a total colectomy. Appendix: The appendix is surgically absent. Intraperitoneal space: There is no free intraperitoneal air. There is no evidence of free intraperitoneal or pelvic fluid. Vasculature: The aorta shows mild atherosclerosis but otherwise is unremarkable without evidence of significant atherosclerosis or aneurysmal disease. The peripheral arterial vascular system visualized is unremarkable. The portal venous system visualized is unremarkable. The peripheral venous vascular system visualized is unremarkable. Lymph nodes: There is no evidence of lymphadenopathy. Urinary bladder: The bladder is normal. Reproductive: The prostate gland demonstrates calcification and mild nonspecific enlargement. The seminal vesicles are normal. Bones/joints: There is a posterior fusion with transpedicular screws at L5-S1 with laminectomy at L5. Surgical changes appear stable compared to the prior study of 09/16/2023. The skeletal structures and soft tissues show no evidence of fracture or other acute processes. Soft tissues: See Bones/joints finding. IMPRESSION: 1. There is a posterior fusion with transpedicular screws at L5-S1 with laminectomy at L5. Surgical changes appear stable compared to the prior study of 09/16/2023. 2. Mild hepatic steatosis. 3. Otherwise, no definitive explanation for patient's current clinical presentation elicited on this study. Dictated and Authenticated by: Madi Jj MD. Orderin Shaheed Ma MD
[2024-08-10] MEDS: Albuterol HFA 8 GM 60 PUFF INH IH (22:23)
[2024-08-10 22:34] VITALS: BP 125/87; PULSE 60; RESP 16; TEMP 36.7; O2SAT 97
[2024-08-10 23:19] LABS: AST 18 U/L (15-37)
== END 2024-08-10 22:57 | disposition home or self-care (01) ==
PROVIDERS: Emergency Provider Emergency Medicine; PCP Family Medicine
DX: R14.0 Abdominal distension (gaseous) (principal); R10.9 Unspecified abdominal pain; E78.5 Hyperlipidemia, unspecified; I10 Essential (primary) hypertension; Z90.49 Acquired absence of other specified parts of digestive tract; Z93.2 Ileostomy status; Z87.891 Personal history of nicotine dependence
CPT/HCPCS: 80053; 99285; 74177; 85025; 99284; J3490

== ENCOUNTER → 2024-08-25 07:28 | Outpatient (BNVA) | payer MEDICARE, SELFPAY | PROVIDERS: PCP Family Medicine; Referring Provider Family Medicine; Visit Provider Surgery | DX: R10.9 Unspecified abdominal pain (principal); Z93.2 Ileostomy status | CPT/HCPCS: 99213 ==

== ENCOUNTER 2024-09-01 00:50 | Outpatient (CLI) | payer MEDICARE, SELFPAY ==
--- NOTE | 2024-09-01 07:00 | DI.RAD_ITS ---
Exam(s) RF SMALL BOWEL SERIES EXAM: RF SMALL BOWEL SERIES CLINICAL HISTORY: ? partial small bowel obstruction,abd pain,r10.9 TECHNIQUE: 2D and realtime digital imaging was performed. CONTRAST MATERIAL: Oral barium contrast was administered. COMPARISON: CT CT ABDOMEN PELVIS W from 08/10/2024 FINDINGS: The patient has had a total colectomy and enterostomy in the right abdomen. There is a normal fold p attern in the small bowel. No bowel dilatation is seen. Transit time through the small bowel was ap proximately 2 hours. There is a question of narrowing of the small bowel at the ostomy site. (Preeti s 22, image 1). No other narrowing of the small bowel is seen. The patient experienced abdominal pa in and bloating during the examination. IMPRESSION: Question of narrowing of the small bowel at the site of the ostomy. . . . RADIATION DOSE DELIVERED: richar Betancur=137 mGy
[2024-09-01] MEDS: Barium Sulfate 60% W/V 355 ML BTL PO ×2 (10:24→10:30)
== END 2024-09-01 01:10 ==
PROVIDERS: PCP Family Medicine; Visit Provider Surgery
DX: R10.9 Unspecified abdominal pain (principal); R93.3 Abnormal findings on diagnostic imaging of other parts of digestive tract
CPT/HCPCS: 74250

== ENCOUNTER 2025-01-28 13:24 | Observation (INO) | payer MEDICARE, SELFPAY ==
[2025-01-28] VITALS (22 sets, daily range): BP systolic 129–154; BP diastolic 90–101; PULSE 64–100; RESP 12–23; TEMP 36.4–36.7; O2SAT 94–99
--- NOTE | 2025-01-28 13:45 | DI.CT_ITS ---
Exam(s) CT ABDOMEN PELVIS W EXAM: CT ABDOMEN PELVIS W CLINICAL HISTORY: pain, bloating TECHNIQUE: Imaging Protocol: Axial computed tomography images with coronal and sagittal reformatted images were created and reviewed. CONTRAST MATERIAL: Intravenous: Omnipaque 350 Contrast volume:75 mL Oral: No COMPARISON: CT CT ABDOMEN PELVIS W from 09/16/[address] ABDOMEN PELVIS W from 08/10/2024 FINDINGS: ABDOMEN: Lung Bases: No acute abnormality. Liver: Normal density. No measurable mass. Portal, Superior Mesenteric, and Splenic Veins: Unremarkable. Gallbladder and Biliary Tract: No definite radiopaque stones are seen. There is no biliary ductal dilatation. Pancreas: Normal density, no abnormal calcifications or inflammatory process. Spleen: Normal. Adrenals: No masses seen. Kidneys: Normal size, contour and axis. No radiodense stones or obstructive uropathy. No masses seen. Abdominal Aorta: Abdominal portion non-dilated. Atherosclerotic calcification is present. Bowel: The patient has had a prior colectomy with an ostomy in the right anterior abdominal wall. There is no evidence of bowel obstruction or bowel wall thickening. Peritoneal Cavity: No ascites, collection or mesenteric inflammatory response. No free air. Lymph Nodes: Within normal limits. Bones: Within normal limits for the patient's age. Posterior spinal surgery is seen at and L5-S1. Soft Tissues: There are findings suggestive of prior bilateral inguinal hernia repairs. PELVIS: Bladder: Symmetric distention, no gross wall thickening. Reproductive Organs: Unremarkable as visualized. Lymph Nodes: Within normal limits. Bones: Within normal limits for the patient's age. IMPRESSION: No acute abdominal or pelvic process. RADIATION DOSE DELIVERED: 364.43mGy.cm Total DLP DATA REPOSITORY: All CT scans at this facility are submitted to the National Radiology Data Registry (NRDR) Dose Index Registry (DIR) with the [employer] ([employer]). RADIATION OPTIMIZATION: All CT scans at this facility use at least one of these dose optimization techniques: automated exposure control; mA and/or kV adjustment per patient size (includes targeted exams where dose is matched to clinical indication); or iterative reconstruction.
--- NOTE | 2025-01-28 13:45 | RT.EKG_ITS ---
APPROVED REPORT Exam: Resting ECG Reason for Exam: left arm pain Patient Location: E HR:82 bpm ECG Measurements Heart Rate 82 AXIS NH 144 P 50 QRSd 74 QRS 70 QT 361 T 64 QTc 421 Conclusion Sinus rhythm...normal P axis, V-rate 60- 99 Consider left ventricular hypertrophy...(S V1+R V5/V6) >3.50mV
--- NOTE | 2025-01-28 14:09 | W.ED.GENAD ---
Discharge Plan Disposition Patient Disposition: Admit to [facility] Condition: Stable Discharge Details Clinical Impression: Ileus, Arm pain, left, Acute dehydration Primary Care Provider: Lisa Mayorga V ED Provider: Ayden Bates Home Meds and New Rx's Prescriptions: No Action potassium chloride 20 mEq tablet extended release 20 meq PO DAILY magnesium citrate 100 mg capsule 100 mg PO BID Qty: 10 0RF magnesium carb,citrate,oxide 300 mg magnesium tablet 300 mg PO DAILY vitamin B complex Capsule 1 cap PO DAILY omega 3-het-fff-fish oil [Fish Oil] 300-1,000 mg capsule 1 cap PO DAILY cholecalciferol (vitamin D3) 25 mcg (1,000 unit) capsule 25 mcg PO DAILY CBD oil 16 mg drops See Rx Instructions PO/SL 1XD Rx Instructions: 16 Drops Orally or Sublingually 1 time daily; diltiazem HCl 360 mg capsule,extended release 24 hr 120 mg PO DAILY albuterol sulfate 90 mcg/actuation HFA aerosol inhaler 2 inh INHALATION TID Patient Comments: INHALE 2 PUFFS BY MOUTH EVERY 4 HOURS NEEDED zinc sulfate 66 mg tablet 66 mg PO DAILY ondansetron 4 mg tablet,disintegrating 4 mg PO Q8H PRN (Reason: nausea & vomiting) Qty: 30 0RF fluticasone propion-salmeterol 250-50 mcg/dose blister with device 1 inh INHALATION BID Patient Comments: INHALE 1 DOSE BY MOUTH TWICE DAILY diltiazem HCl 120 mg capsule,extended release 24hr 120 mg PO Patient Comments: TAKE 1 CAPSULE BY MOUTH ONCE DAILY pantoprazole 40 mg tablet,delayed release (DR/EC) 40 mg PO DAILY Patient Comments: TAKE 1 TABLET BY MOUTH ONCE DAILY HPI General Mode of arrival: ambulatory. Date/Time Provider Initiated Documentation: 01/28/25 13:42. Limitations to Documentation: no limitations. Information obtained by: patient. HPI Narrative: HISTORY OF PRESENT ILLNESS 55-year-old male with chronic ileostomy due to ulcerative colitis presents with abdominal distension and pain and associated nausea and vomiting. Symptoms have been ongoing for some time but worse over the past couple days. Outpatient MRI performed yesterday at [facility] [place]; results pending. No bowel movements or stoma output since last night, which was yellow and less than usual. Reports frequent burping, bloating, and skin stretching sensation. Pain rated 3/10, similar to a toothache, possibly due to straining or prolonged lying down. No Tylenol taken today. Unable to consume liquids for nearly 2 days. No blood in stool or swelling apart from bloating. Symptoms since yesterday afternoon. Managing nausea with Tums, suspects cramping is not ileus. Reluctant to take pain medication due to potential ileus. Patient also reports some left upper arm discomfort today. He had heart catheterization in 11/2024 at [facility] showed no abnormalities. Related Data Home Medications ?Medication ?Instructions ?Recorded ?Confirmed cholecalciferol (vitamin D3) 25 25 mcg PO DAILY 04/29/22 01/28/25 mcg (1,000 unit) capsule magnesium carb,citrate,oxide 300 mg PO DAILY 04/29/22 01/28/25 omega 0-vkk-rzz-fish oil 300 1 cap PO DAILY 04/29/22 01/28/25 mg-1,000 mg capsule (Fish Oil) vitamin B complex 1 cap PO DAILY 04/29/22 01/28/25 albuterol sulfate 90 mcg/actuation 2 inh inhalation TID 06/05/22 01/28/25 aerosol inhaler CBD oil See Rx Instructions PO/SL 1XD 08/23/22 01/28/25 ondansetron 4 mg disintegrating 4 mg PO Q8H PRN nausea & vomiting 09/16/23 01/28/25 tablet #30 tabs diltiazem HCl 360 mg capsule,24 120 mg PO DAILY 01/26/24 01/28/25 hr,extended release Held on 01/28/25. Instructions: Duplicate zinc sulfate 66 mg tablet 66 mg PO DAILY 08/10/24 01/28/25 magnesium citrate 100 mg capsule 100 mg PO BID #10 caps 08/25/24 01/28/25 potassium chloride 20 mEq 20 meq PO DAILY 08/25/24 01/28/25 tablet,extended release diltiazem HCl 120 mg 120 mg PO 01/28/25 capsule,extended release 24 hr fluticasone 250 mcg-salmeterol 50 1 inh inhalation BID 01/28/25 01/28/25 mcg/dose blistr powdr for inhalation pantoprazole 40 mg tablet,delayed 40 mg PO DAILY 01/28/25 01/28/25 release Previous Rx's ?Medication ?Instructions ?Recorded ondansetron 4 mg disintegrating 4 mg PO Q8H PRN nausea & vomiting 09/16/23 tablet #30 tabs magnesium citrate 100 mg capsule 100 mg PO BID #10 caps 08/25/24 Allergies Allergy/AdvReac Type Severity Reaction Status Date / Time ibuprofen Allergy Severe tongue Verified 01/28/25 13:28 swelling NSAIDS (Non-Steroidal Allergy Severe Anaphylaxis Verified 01/28/25 13:28 Anti-Inflamma tadalafil (From Cialis) Allergy Intermediate muscle pain Verified 01/28/25 13:28 tamsulosin (From Flomax) Allergy Intermediate breathing Verified 01/28/25 13:28 difficulty Sulfa (Sulfonamide Allergy shortness Verified 01/28/25 13:28 Antibiotics) of breath, rash bupropion (From Wellbutrin) AdvReac Severe suicidal Verified 01/28/25 13:28 thoughts zolpidem (From Ambien) AdvReac Severe sleep Verified 01/28/25 13:28 walk/drive atenolol AdvReac Unknown amnesia Verified 01/28/25 13:28 General Stated Complaint: Abd Prob MERLE: 3 Review of Systems All systems reviewed & are unremarkable except as noted in HPI and below Exam Const General: cooperative and uncomfortable (Nauseous) HENMT Mouth: mucous membranes dry Eyes Conjunctivae: normal conjunctivae Sclera: normal sclerae Neck Neck: trachea midline and supple Resp Auscultation: clear to auscultation bilaterally, no rales, no rhonchi and no wheezes Cardio Rate: regular rate and not tachycardic Rhythm: regular rhythm GI Palpation: soft, not firm, no guarding, no masses, not rigid and tender (Diffuse mild) Other: Positive bowel sounds Skin General skin exam: no rashes or lesions noted Neuro General: patient alert, patient awake, patient oriented x3 and tone normal Extrem General: no edema Psych Appearance: grossly normal Mental Status: mental status grossly normal Course Vital Signs Vital signs: Vital Signs Temperature 36.4 C 01/28/25 13:26 Pulse 100 H 01/28/25 13:26 Respiratory Rate 16 01/28/25 13:26 Blood Pressure 144/94 H 01/28/25 13:26 Pulse Oximetry 98 01/28/25 13:26 Temperature 36.4 C 01/28/25 13:26 Temperature Source Oral 01/28/25 13:26 Pulse 100 H 01/28/25 13:26 Respiratory Rate 16 01/28/25 13:26 Blood Pressure 144/94 H 01/28/25 13:26 Blood Pressure Position Sitting 01/28/25 13:26 Pulse Oximetry 98 01/28/25 13:26 Oxygen Delivery Method Room Air 01/28/25 13:26 Oxygen Flow Rate 0 01/28/25 13:26 Medical Decision Making ASSESSMENT AND PLAN Initial Assessment: 55-year-old male with ileostomy due to ulcerative colitis, presenting with bloating, burping, nausea, and no ileostomy output since last night. Pain rated 3/10. Abdomen diffusely tender with no peritoneal findings. Positive bowel sounds. Also with some left upper arm pain. Differential Diagnosis: - Bowel obstruction: Severe distension, no ileostomy output, nausea. Plan: CT abdomen/pelvis. - Ileus: Lack of movement/output, severe distension, nausea. Plan: CT to confirm, initiate treatment if confirmed. - Dehydration ED Course: - IV fluids for dehydration - Zofran IV for nausea. Patient initially noted some improvement but then nausea returning. Reglan IV ordered for nausea. - IV Tylenol for pain - EKG was reviewed and interpreted by me: Please report, nondiagnostic. - CT of the abdomen pelvis was interpreted by radiology: No acute abdominal or pelvic process. Prior colectomy noted with ostomy in the right anterior abdominal wall with no evidence of bowel obstruction or bowel wall thickening. - Labs reviewed and nondiagnostic. Clinical Impression: - Abdominal distension and pain - Suspected ileus - Dehydration - Left upper arm discomfort Physician: Plan for hospitalization for continued IV fluid and antiemetics. I called and spoke with hospitalist on-call, discussed ED presentation course, she will admit the patient. This document was written with the assistance of HOLLY Villalobos. The patient consented to its use. Lab Data Lab results reviewed: Yes I reviewed the patient's lab results. Labs: Laboratory Tests Range/Units 01/28/25 01/28/25 14:11 15:25 WBC (4.4-10.8) 10^3/uL 8.92 RBC (4.36-5.78) 10^6/uL 5.66 Hgb (13.5-17.5) g/dL 16.0 Hct (40.0-50.0) % 46.0 MCV (80-95) fL 81 MCH (27.0-33.0) pg 28.3 MCHC (32.0-36.0) % 34.8 RDW (11.8-14.1) % 12.7 Plt Count (130-400) 10^3/uL 258 MPV (8.0-11.0) fL 9.2 Immature Gran % % 0.3 Neutrophils % % 70.5 Lymphocytes % % 18.9 Monocytes % % 8.7 Eosinophils % % 1.3 Basophils % % 0.3 Nucleated RBC % (0.0-0.3) % 0.0 Absolute Neutrophils (1.2-6.7) 10^3/uL 6.27 Absolute Lymphocytes (1.2-3.4) 10^3/uL 1.69 Absolute Monocytes (0.1-0.8) 10^3/uL 0.78 Absolute Eosinophils (0.0-0.7) 10^3/uL 0.12 Absolute Basophils (0.0-0.2) 10^3/uL 0.03 Sodium (136-145) mmol/L 137 Potassium (3.5-5.1) mmol/L 3.8 Chloride (98-107) mmol/L 102 Carbon Dioxide (21.0-32.0) mmol/L 23.6 Anion Gap (3-11) mmol/L 11.4 H BUN (7-18) mg/dL 13 Creatinine (0.70-1.30) mg/dL 0.9 Est GFR (CKD-EPI 2020) (mL/min/1.73m2) 100.24 Glucose (74-106) mg/dL 99 Calcium (8.5-10.1) mg/dL 9.4 Magnesium (1.8-2.4) mg/dL 1.9 Total Bilirubin (0.2-1.0) mg/dL 1.7 H AST (15-37) U/L 24 ALT (16-63) U/L 25 Alkaline Phosphatase (46-116) U/L 63 Troponin I (<or=76) ng/L 5 4 Total Protein (6.4-8.2) g/dL 7.7 Albumin (3.4-5.0) g/dL 4.1 Lipase (<78) U/L 26 [facility] All Active Problems (Updated 01/28/25 @ 16:25 by Ayden Bates MD) Acute dehydration (Acute) Arm pain, left (Acute) Ileus (Acute) Ileostomy stenosis (Acute) Bilateral groin pain (Acute) Acute low back pain (Acute) Inguinal pain (Acute) Incomplete emptying of bladder (Acute) Tachycardia (Acute) History of atrial fibrillation (Acute) has had ablation Proctitis (Acute) disuse/diversion proctitis Hx of ulcerative colitis (Acute) Bilateral inguinal hernia (Acute) Laceration of finger of left hand (Acute) Laceration volar fingertip left middle finger Date of injury: 04/26/18 Fracture of distal phalanx of finger of left hand (Acute) Asymptomatic fracture of the distal phalanx of the left ring finger Date of injury: 04/26/[address] (Acute) Psoriasis (Chronic) Depression with anxiety (Acute) Hypertension (Chronic) Chronic recurrent pilonidal cyst (Acute) Asthma, moderate persistent (Acute) Degenerative joint disease (DJD) of lumbar spine (Acute) Bronchitis, obstructive, chronic (Acute) Environmental allergies (Acute) Hypogonadism, male (Acute) Bilateral inguinal hernia (Acute) Medical History Enteritis Former smoker Hyperlipidemia PTSD (post-traumatic stress disorder) SVT (supraventricular tachycardia) Ulcerative proctitis Surgical History H/O cardiac radiofrequency ablation History of back surgery 2 rods, 4 screws, L4-5 2006 [place], [place] H/O total colectomy H/O hernia repair (~01/2020) [facility] around ileostomy Social History Smoking/Tobacco Use Status: Former Tobacco Use Quit Date: 06/02/06 Smoking risk assessment performed?: Yes Alcohol Intake: former Drug use: Never Substance use type: does not use Housing: house Current gender identity: male Do you feel safe in your relationship?: Yes
[2025-01-28 14:27] LABS: Abs Immature Grans 0.03 10^3/uL (0.0-0.06); HCT 46.0 % (40.0-50.0); HGB 16.0 g/dL (13.5-17.5); Immature Grans % 0.3 %; MCH 28.3 pg (27.0-33.0); MCHC 34.8 % (32.0-36.0); MCV 81 fL (80-95); MPV 9.2 fL (8.0-11.0); Platelet Count 258 10^3/uL (130-400); RBC 5.66 10^6/uL (4.36-5.78); RDW 12.7 % (11.8-14.1); RDW-SD 37.3 fL; WBC 8.92 10^3/uL (4.4-10.8)
[2025-01-28] MEDS: Normal Saline - Diluent 50 ML VIAL IJ (14:39)
[2025-01-28] MEDS: Omnipaque 350 MG/ML 500 ML BTL-Imaging package 75 ML IJ (14:40)
[2025-01-28] MEDS: Ondansetron 4 MG/2 ML VIAL IVP ×2 (14:41→20:21)
[2025-01-28] MEDS: FAMOTIDINE 20 MG in Normal Saline 100 ML 400 MG IVPB (14:41)
[2025-01-28] MEDS: ACETAMINOPHEN 1,000 MG/100 ML BAG 400 MG IVPB (14:41)
[2025-01-28 14:55] LABS: ALT 25 U/L (16-63); AST 24 U/L (15-37); Albumin 4.1 g/dL (3.4-5.0); Alkaline Phosphatase 63 U/L (46-116); Anion Gap 11.4 mmol/L (3-11); BUN 13 mg/dL (7-18); Bilirubin, Total 1.7 mg/dL (0.2-1.0); CO2 23.6 mmol/L (21.0-32.0); Calcium 9.4 mg/dL (8.5-10.1); Chloride 102 mmol/L (98-107); Estimated GFR 100.24 (mL/min/1.73m2); Glucose 99 mg/dL (74-106); Lipase 26 U/L (<78); Magnesium 1.9 mg/dL (1.8-2.4); Potassium 3.8 mmol/L (3.5-5.1); Sodium 137 mmol/L (136-145); Total Protein 7.7 g/dL (6.4-8.2); Troponin I 5 ng/L (<or=76)
[2025-01-28 15:54] LABS: Troponin I 4 ng/L (<or=76)
[2025-01-28] MEDS: Metoclopramide 10 MG/2 ML VIAL IVP (16:12)
--- NOTE | 2025-01-28 16:53 | HPE_ITS ---
Date of service: 01/28/25 Time of Service: 16:53 Assessment and Plan Assessment and plan (1) Nausea: Status: Acute Assessment and plan: referred to observation symptom management labs normal, no acute findings on CT scan of abd/pelvis had abd MRI at [facility] [place] yesterday, results not available, will obtain when read. Scheduled Reglan before meals, simethicone after, (2) History of atrial fibrillation: Status: Acute Assessment and plan: In sinus rhythm, continue diltiazem (3) Hypertension: Status: Chronic Assessment and plan: monitor blood pressure on diltiazem, adjust if needed. (4) Asthma, moderate persistent: Status: Acute Assessment and plan: no exacerbation home inhaler as directed albuterol prn discussed with DR Mcpherson History of Present Illness Narrative: patient with complex past medical history, including but not limited to ulcerative colitis, s/p ileostomy, atrial fibrillation not anticoagulated, who presents to the ED with c/o abdominal distention, nausea and pain. had abdominal MRI at [facility] [place] yesterday with not results available yet, experiencing intractable symptoms. his work up in the ED showed normal labs and CT with no evidence of obstruction or acute abdominal or pelvic process. afebrile and hemodynamically stable. no close contacts with similar symptoms. He received zofran with little improvement in his symptoms, he then received reglan but did not feel like he could take PO fluids so hospitalist asked to admit for observation and symptom management. Review of Systems All systems reviewed & are unremarkable except as noted in HPI and below PFSH All Active Problems (Updated 01/28/25 @ 17:11 by Yamileth Gaines, SON) Nausea (Acute) Acute dehydration (Acute) Arm pain, left (Acute) Ileus (Acute) Ileostomy stenosis (Acute) Bilateral groin pain (Acute) Acute low back pain (Acute) Inguinal pain (Acute) Incomplete emptying of bladder (Acute) Tachycardia (Acute) History of atrial fibrillation (Acute) has had ablation Proctitis (Acute) disuse/diversion proctitis Hx of ulcerative colitis (Acute) Bilateral inguinal hernia (Acute) Laceration of finger of left hand (Acute) Laceration volar fingertip left middle finger Date of injury: 04/26/18 Fracture of distal phalanx of finger of left hand (Acute) Asymptomatic fracture of the distal phalanx of the left ring finger Date of injury: 04/26/[address] (Acute) Psoriasis (Chronic) Depression with anxiety (Acute) Hypertension (Chronic) Chronic recurrent pilonidal cyst (Acute) Asthma, moderate persistent (Acute) Degenerative joint disease (DJD) of lumbar spine (Acute) Bronchitis, obstructive, chronic (Acute) Environmental allergies (Acute) Hypogonadism, male (Acute) Bilateral inguinal hernia (Acute) Medical History (Updated 01/28/25 @ 17:11 by Yamileth Gaines NP) Enteritis Former smoker Hyperlipidemia PTSD (post-traumatic stress disorder) SVT (supraventricular tachycardia) Ulcerative proctitis Surgical History H/O cardiac radiofrequency ablation History of back surgery 2 rods, 4 screws, L4-5 2006 [place] H/O total colectomy H/O hernia repair (~01/2020) [facility] around ileostomy Social History Smoking/Tobacco Use Status: Former Tobacco Use Quit Date: 06/02/06 Smoking risk assessment performed?: Yes Alcohol Intake: former Drug use: Never Substance use type: does not use Housing: house Current gender identity: male Do you feel safe in your relationship?: Yes Meds Allergies and Home Medications Allergies Allergy/AdvReac Type Severity Reaction Status Date / Time ibuprofen Allergy Severe tongue Verified 01/28/25 13:28 swelling NSAIDS (Non-Steroidal Allergy Severe Anaphylaxis Verified 01/28/25 13:28 Anti-Inflamma tadalafil (From Cialis) Allergy Intermediate muscle pain Verified 01/28/25 13:28 tamsulosin (From Flomax) Allergy Intermediate breathing Verified 01/28/25 13:28 difficulty Sulfa (Sulfonamide Allergy shortness Verified 01/28/25 13:28 Antibiotics) of breath, rash bupropion (From Wellbutrin) AdvReac Severe suicidal Verified 01/28/25 13:28 thoughts zolpidem (From Ambien) AdvReac Severe sleep Verified 01/28/25 13:28 walk/drive atenolol AdvReac Unknown amnesia Verified 01/28/25 13:28 Home Medications ?Medication ?Instructions ?Recorded ?Confirmed ?Type cholecalciferol (vitamin D3) 25 25 mcg PO DAILY 01/28/25 History mcg (1,000 unit) capsule magnesium carb,citrate,oxide 300 mg PO DAILY 04/29/22 01/28/25 History omega 6-fxv-udc-fish oil 300 1 cap PO DAILY 04/29/22 0 01/28/25 History mg-1,000 mg capsule (Fish Oil) vitamin B complex 1 cap PO DAILY 04/29/2201/01 History albuterol sulfate 90 mcg/actuation 2 inh inhalation TI D 06/05/22 01/28/25 History aerosol inhaler CBD oil See Rx Instructions PO/SL 1X D 08/23/22 01/28/25 History ondansetron 4 mg disintegrating 4 mg PO Q8H PRN nausea & vomiting 09/16/23 01/28/25 Rx tablet #30 tabs diltiazem HCl 360 mg capsule,24 120 mg PO DAILY 01/28/25 History hr,extended release Held on 01/28/25. Instructions: Duplicate zinc sulfate 66 mg tablet 66 mg PO DAILY 08/10/2401/01 History magnesium citrate 100 mg capsule 100 mg PO BID #10 cap s 08/25/24 01/28/25 Rx potassium chloride 20 mEq 20 meq PO DAILY 08/25/24 History tablet,extended release diltiazem HCl 120 mg 120 mg PO 01/28/25 History capsule,extended release 24 hr fluticasone 250 mcg-salmeterol 50 1 inh inhalation BID 01/28/25 01/28/25 History mcg/dose blistr powdr for inhalation pantoprazole 40 mg tablet,delayed 40 mg PO DAILY 01/2801/28/25 History release Exam Narrative Exam Narrative: Well-appearing male of stated age no acute distress head is atraumatic eyes nonicteric noninjected oral mucosas moist neck full range of motion cardiovascular regular rate and rhythm respirations even and unlabored abdomen is distended ileostomy intact right upper quadrant no to little drainage in bag moves all extremities no peripheral edema neurologic awake alert oriented no focal deficits psychiatric appropriate mood and affect Results Labs 01/28/25 14:11 01/28/25 14:11 Labs: Laboratory Results - last 24 hr 01/28/25 01/28/25 14:11 15:25 WBC 8.92 RBC 5.66 Hgb 16.0 Hct 46.0 MCV 81 MCH 28.3 MCHC 34.8 RDW 12.7 Plt Count 258 MPV 9.2 Immature Gran % 0.3 Neutrophils % 70.5 Lymphocytes % 18.9 Monocytes % 8.7 Eosinophils % 1.3 Basophils % 0.3 Nucleated RBC % 0.0 Absolute Neutrophils 6.27 Absolute Lymphocytes 1.69 Absolute Monocytes 0.78 Absolute Eosinophils 0.12 Absolute Basophils 0.03 Sodium 137 Potassium 3.8 Chloride 102 Carbon Dioxide 23.6 Anion Gap 11.4 H BUN 13 Creatinine 0.9 Est GFR (CKD-EPI 2020) 100.24 Glucose 99 Calcium 9.4 Magnesium 1.9 Total Bilirubin 1.7 H AST 24 ALT 25 Alkaline Phosphatase 63 Troponin I 5 4 Total Protein 7.7 Albumin 4.1 Lipase 26 Last Vital Signs Temp 36.7 C 01/28/25 15:39 Pulse 94 H 01/28/25 16:31 Resp 23 01/28/25 16:31 BP 129/97 H 01/28/25 16:18 Pulse Ox 97 01/28/25 16:31 Time Spent Time spent with Patient: 55-74 minutes Time was spent: preparing to see the patient(eg.review tests), obtaining and/or reviewing separately otained hiistory, ordering medications,tests, procedures, indepentently interpreting results and counseling the patient
--- NOTE | 2025-01-28 18:02 | W.PC.ACHO ---
Registration Status: ADM FABIEN Primary Language: Preferred Language: Estonian ED Information & Data Chief Complaint Abd Prob 01/28/25 14:59 Chief Complaint Abd Prob 01/28/25 14:10 Triage Note Has ileostomy. Here because 01/28/25 13:26 stomach is distended and bloated. Had MRI yesterday with oral contrast. nauseous and in pain. Medical / Surgical History (Last Updated 01/28/25 @ 17:11 by Yamileth Gaines NP) Enteritis Former smoker Hyperlipidemia PTSD (post-traumatic stress disorder) SVT (supraventricular tachycardia) Ulcerative proctitis (Last Reviewed 01/28/25 @ 16:20 by Ayden Bates MD) H/O cardiac radiofrequency ablation History of back surgery H/O total colectomy H/O hernia repair (~01/2020) Most Recent Vital Signs Temperature 36.6 C 01/28/25 17:49 Temperature Source Temporal Artery Scan 01/28/25 17:49 Pulse 74 01/28/25 17:49 Pulse Rhythm Regular 01/28/25 17:36 Pulse 99 H 01/28/25 16:31 Respiratory Rate 18 01/28/25 17:49 Respiratory Effort Normal 01/28/25 17:36 Respiratory Depth Normal 01/28/25 17:36 Respiratory Pattern Normal 01/28/25 17:36 Blood Pressure 146/96 H 01/28/25 17:49 Blood Pressure Mean 112 01/28/25 17:49 Blood Pressure Position Sitting 01/28/25 13:26 Pulse Oximetry 98 01/28/25 17:49 Oxygen Delivery Method Room Air 01/28/25 17:49 Oxygen Flow Rate 0 01/28/25 17:49 Pain Level 5 01/28/25 17:49 Allergies ibuprofen Allergy (Severe, Verified 01/28/25 13:28) tongue swelling NSAIDS (Non-Steroidal Anti-Inflamma Allergy (Severe, Verified 01/28/25 13:28) Anaphylaxis tadalafil (From Cialis) Allergy (Intermediate, Verified 01/28/25 13:28) muscle pain tamsulosin (From Flomax) Allergy (Intermediate, Verified 01/28/25 13:28) breathing difficulty Sulfa (Sulfonamide Antibiotics) Allergy (Verified 01/28/25 13:28) shortness of breath, rash bupropion (From Wellbutrin) Adverse Reaction (Severe, Verified 01/28/25 13:28) suicidal thoughts zolpidem (From Ambien) Adverse Reaction (Severe, Verified 01/28/25 13:28) sleep walk/drive atenolol Adverse Reaction (Unknown, Verified 01/28/25 13:28) amnesia Active Medications Generic Name Dose Route Start Last Admin Trade Name Freq PRN Reason Stop Dose Admin Sodium Chloride 50 ml 01/28/25 14:45 01/28/25 14:39 Normal Saline - Diluent 50 Ml Vial IJ 50 ml .FOR DI USE CHRISTIANO Administration IV IV Catheter Type [Left Forearm Saline Lock ] IV Catheter Gauge [Left 18 Forearm] Diet Orders Category Date Time Status Regular/Normal [DIET] Nutrition 01/28/25 Dinner Active Diagnostics 01/28/25 01/28/25 Range/Units 15:25 14:11 WBC 8.92 (4.4-10.8) 10^3/uL RBC 5.66 (4.36-5.78) 10^6/uL Hgb 16.0 (13.5-17.5) g/dL Hct 46.0 (40.0-50.0) % MCV 81 (80-95) fL MCH 28.3 (27.0-33.0) pg MCHC 34.8 (32.0-36.0) % RDW 12.7 (11.8-14.1) % Plt Count 258 (130-400) 10^3/uL MPV 9.2 (8.0-11.0) fL Immature Gran % 0.3 % Neutrophils % 70.5 % Lymphocytes % 18.9 % Monocytes % 8.7 % Eosinophils % 1.3 % Basophils % 0.3 % Nucleated RBC % 0.0 (0.0-0.3) % Absolute Neutrophils 6.27 (1.2-6.7) 10^3/uL Absolute Lymphocytes 1.69 (1.2-3.4) 10^3/uL Absolute Monocytes 0.78 (0.1-0.8) 10^3/uL Absolute Eosinophils 0.12 (0.0-0.7) 10^3/uL Absolute Basophils 0.03 (0.0-0.2) 10^3/uL Sodium 137 (136-145) mmol/L Potassium 3.8 (3.5-5.1) mmol/L Chloride 102 (98-107) mmol/L Carbon Dioxide 23.6 (21.0-32.0) mmol/L Anion Gap 11.4 H (3-11) mmol/L BUN 13 (7-18) mg/dL Creatinine 0.9 (0.70-1.30) mg/dL Est GFR (CKD-EPI 2020) 100.24 (mL/min/1.73m2) Glucose 99 (74-106) mg/dL Calcium 9.4 (8.5-10.1) mg/dL Magnesium 1.9 (1.8-2.4) mg/dL Total Bilirubin 1.7 H (0.2-1.0) mg/dL AST 24 (15-37) U/L ALT 25 (16-63) U/L Alkaline Phosphatase 63 (46-116) U/L Troponin I 4 5 (<or=76) ng/L Total Protein 7.7 (6.4-8.2) g/dL Albumin 4.1 (3.4-5.0) g/dL Lipase 26 (<78) U/L Intake and Output - 24 Hour Total 01/28/25 13:24 thru 01/28/25 17:36 Intake Total 202 Balance 202 Weight 81.647 kg Intake: IV 202 Other: Urine Appearance Clear Falls Risk Assessment History of Falls No History 01/28/25 17:36 Contributing Factors No Factors 01/28/25 17:36 Ambulatory Aids Independent 01/28/25 17:36 Tubes/Lines W/no contributing factors 01/28/25 17:36 Gait Evaluation No gait disturbance 01/28/25 17:36 Cognition No cognitive impairment 01/28/25 14:27 Fall Total Score 10 01/28/25 17:36 Level of Risk Standard/Low Risk 01/28/25 17:36 Problems (Last Updated 01/28/25 @ 17:11 by Yamileth Gaines NP) Nausea (Acute) Acute dehydration (Acute) Arm pain, left (Acute) Ileus (Acute) History of atrial fibrillation (Acute) Hypertension (Chronic) Asthma, moderate persistent (Acute) v v v v v v v v v Sending and/or Receiving Nurses: Please use comment section below to note any information pertinent to the patient hand-off not included above. Information / Comments: Pt was brought to floor via stretcher and walked to bed with steady gait. Pt settled into room by CUSTOMER ORDERS CLERK. VS taken and stable. Pt oriented to room and call montaño within reach. Report received from: MATTHEW Neal ED
[2025-01-28] MEDS: Melatonin 3 MG TAB PO (19:45)
[2025-01-28] MEDS: Lactated Ringers 1,000 ML 100 ML IV (19:45)
[2025-01-28] MEDS: Normal Saline Flush 10 ML SYR IVP (19:46)
[2025-01-28] MEDS: Acetaminophen 325 MG TAB 650 MG PO (19:56)
[2025-01-28] MEDS: Simethicone 80 MG CHEW PO (22:50)
[2025-01-29] MEDS: Lactated Ringers 1,000 ML 100 ML IV ×2 (06:08→16:19)
[2025-01-29 06:30] LABS: Abs Immature Grans 0.02 10^3/uL (0.0-0.06); HCT 43.8 % (40.0-50.0); HGB 14.8 g/dL (13.5-17.5); Immature Grans % 0.3 %; MCH 27.6 pg (27.0-33.0); MCHC 33.8 % (32.0-36.0); MCV 82 fL (80-95); MPV 9.2 fL (8.0-11.0); Platelet Count 237 10^3/uL (130-400); RBC 5.36 10^6/uL (4.36-5.78); RDW 12.8 % (11.8-14.1); RDW-SD 37.8 fL; WBC 5.88 10^3/uL (4.4-10.8)
[2025-01-29 06:55] LABS: ALT 25 U/L (16-63); AST 20 U/L (15-37); Albumin 3.6 g/dL (3.4-5.0); Alkaline Phosphatase 59 U/L (46-116); Anion Gap 7.9 mmol/L (3-11); BUN 13 mg/dL (7-18); Bilirubin, Total 1.8 mg/dL (0.2-1.0); CO2 28.1 mmol/L (21.0-32.0); Calcium 9.0 mg/dL (8.5-10.1); Chloride 103 mmol/L (98-107); Estimated GFR 100.24 (mL/min/1.73m2); Glucose 98 mg/dL (74-106); Potassium 4.0 mmol/L (3.5-5.1); Sodium 139 mmol/L (136-145); Total Protein 7.0 g/dL (6.4-8.2)
[2025-01-29 08:01] VITALS: BP 131/97; PULSE 67; RESP 16; TEMP 36.2; O2SAT 96
[2025-01-29] MEDS: dilTIAZem CD 120 MG CAPCR PO (08:18)
[2025-01-29] MEDS: Simethicone 80 MG CHEW PO ×4 (08:18→20:38)
[2025-01-29] MEDS: Potassium Chloride 20 MEQ TABCR PO (08:18)
[2025-01-29] MEDS: Pantoprazole 40 MG VIAL IVP (08:18)
[2025-01-29] MEDS: Normal Saline Flush 10 ML SYR IVP ×2 (08:19→20:20)
[2025-01-29] MEDS: Budesonide/Formoterol 160/4.5 6 GM 60 PUFF INH IH ×2 (08:25→21:10)
[2025-01-29] MEDS: Ondansetron 4 MG/2 ML VIAL IVP (08:28)
--- NOTE | 2025-01-29 10:08 | W.PM.PROGNOT ---
Date of Service Date of service: 01/29/25 Time of Service: 10:08 Assessment and Plan Assessment and plan (1) Nausea: Status: Acute Assessment and plan: Observation status after coming to the ED s/p MRI at [facility] on 01/28- Ongoing symptom management w ondansetron - as reglan was discontinue re: reported as causing jitters total bili uptrending - 1.8 , no acute findings on CT scan of abd/pelvis ABD MRI at [facility]: Report requested and pending Ongoing simethicone after meals Consider oral reglan in clinically worsens (2) History of atrial fibrillation: Status: Acute Assessment and plan: on home dose diltiazem (3) Hypertension: Status: Chronic Assessment and plan: Continue to monitor blood pressure on home diltiazem regimen , adjust if needed. (4) Asthma, moderate persistent: Status: Acute Assessment and plan: Stable Continue home inhaler as directed Ongoing albuterol prn discussed with Dr. Mcpherson Subjective Subjective Patient reports: no new complaints, feels better, still having pain, tolerating liquids well, voiding w/o difficulty, bowel movement and nausea; denies tolerating a regular diet, blood in stool, vomiting, shortness of breath or fever Exam Narrative Exam Narrative: 55 yo male patient lookinof stated age, alert and oriented time 4, no focal neurological deficit, unlabored breathing, clear lungs, Abdomen is mildly distended, soft, diffused tenderness and positive Hassan's, + output from stoma, no CVA tenderness Objective Last Vital Signs Temp 36.2 C L 01/29/25 08:01 Pulse 67 01/29/25 08:01 Resp 16 01/29/25 08:01 BP 131/97 H 01/29/25 08:01 Pulse Ox 96 01/29/25 08:01 Laboratory Results - last 24 hr 01/28/25 01/28/25 01/29/25 14:11 15:25 05:50 WBC 8.92 5.88 RBC 5.66 5.36 Hgb 16.0 14.8 Hct 46.0 43.8 MCV 81 82 MCH 28.3 27.6 MCHC 34.8 33.8 RDW 12.7 12.8 Plt Count 258 237 MPV 9.2 9.2 Immature Gran % 0.3 0.3 Neutrophils % 70.5 63.2 Lymphocytes % 18.9 21.8 Monocytes % 8.7 11.1 Eosinophils % 1.3 3.1 Basophils % 0.3 0.5 Nucleated RBC % 0.0 0.0 Absolute Neutrophils 6.27 3.72 Absolute Lymphocytes 1.69 1.28 Absolute Monocytes 0.78 0.65 Absolute Eosinophils 0.12 0.18 Absolute Basophils 0.03 0.03 Sodium 137 139 Potassium 3.8 4.0 Chloride 102 103 Carbon Dioxide 23.6 28.1 Anion Gap 11.4 H 7.9 BUN 13 13 Creatinine 0.9 0.9 Est GFR (CKD-EPI 2020) 100.24 100.24 Glucose 99 98 Calcium 9.4 9.0 Magnesium 1.9 Total Bilirubin 1.7 H 1.8 H AST 24 20 ALT 25 25 Alkaline Phosphatase 63 59 Troponin I 5 4 Total Protein 7.7 7.0 Albumin 4.1 3.6 Lipase 26 Time Spent with Patient Time Spent with Patient: >50 minutes Time was spent: preparing to see the patient(eg.review tests), obtaining and/or reviewing separately otained hiistory, ordering medications,tests, procedures, referring, communicating with other health anesthesiologist and critical care, indepentently interpreting results, counseling the patient, care coordination and other
--- NOTE | 2025-01-29 13:34 | PHA.REVIEW2 ---
Pharmacy Admission Review Admission Clinical Review Admission Pharmacy Review: Nausea (Acute) Acute dehydration (Acute) Arm pain, left (Acute) Ileus (Acute) History of atrial fibrillation (Acute) Asthma, moderate persistent (Acute) ibuprofen Allergy (Severe, Verified 01/28/25 13:28) tongue swelling NSAIDS (Non-Steroidal Anti-Inflamma Allergy (Severe, Verified 01/28/25 13:28) Anaphylaxis tadalafil (From Cialis) Allergy (Intermediate, Verified 01/28/25 13:28) muscle pain tamsulosin (From Flomax) Allergy (Intermediate, Verified 01/28/25 13:28) breathing difficulty Sulfa (Sulfonamide Antibiotics) Allergy (Verified 01/28/25 13:28) shortness of breath, rash bupropion (From Wellbutrin) Adverse Reaction (Severe, Verified 01/28/25 13:28) suicidal thoughts zolpidem (From Ambien) Adverse Reaction (Severe, Verified 01/28/25 13:28) sleep walk/drive atenolol Adverse Reaction (Unknown, Verified 01/28/25 13:28) amnesia Resuscitation Status Full Code Height 5 ft 8 in Weight 81.647 kg Comments Comments/Follow Ups: Follow up on DVT prophylaxis Pharmacy Admission Review Renal Dosing Renal Dosing: BUN 13 mg/dL (7-18) 01/29/25 05:50 Creatinine 0.9 mg/dL (0.70-1.30) 01/29/25 05:50 Medications needing adjustments: Reviewed (CrCl 105.84 mL/min) List of meds needing interventions: Current medications are okay Anticoagulation Anticoagulation: Hgb 14.8 g/dL (13.5-17.5) 01/29/25 05:50 Hct 43.8 % (40.0-50.0) 01/29/25 05:50 Plt Count 237 10^3/uL (130-400) 01/29/25 05:50 Creatinine 0.9 mg/dL (0.70-1.30) 01/29/25 05:50 DVT Prophylaxis: Intervened (None at this time, reached out to provider who is looking into it) Relevant Labs Relevant Labs: Sodium 139 mmol/L (136-145) 01/29/25 05:50 Potassium 4.0 mmol/L (3.5-5.1) 01/29/25 05:50 Chloride 103 mmol/L (98-107) 01/29/25 05:50 Magnesium 1.9 mg/dL (1.8-2.4) 01/28/25 14:11 Electrolytes, C-Reactive P, ESR: Reviewed (total bilirubin increased from 1.7 to 1.8) Cardiac Review Cardiac Review: Troponin I 4 ng/L (<or=76) 01/28/25 15:25 BP, HR, EF%: Reviewed (BP 131/97, HR WNL) List meds needing interventions: Has order for diltiazem CD 120mg daily QTc Review QTc: Reviewed (421 from 01/28/25) IV to PO Switch IV Medications: Reviewed (acetaminophen, metoclopramide, ondansetron and pantoprazole) Home Meds Home Med List reviewed: Reviewed Relevent Home Meds Not ordered & why?: CBD oil, vitamin D3, Advair (substituted with Symbicort per pharmacy protocol), magnesium, fish oil, vitamin B complex and Zinc Current Meds Current Medication Order Review: Intervened Comments: Added IV access order Patient reported to nurse that Reglan made him feel shaky like an adrenaline boo - patient has been refusing anymore doses Comments Comments/Follow Ups: Follow up on DVT prophylaxis
--- NOTE | 2025-01-29 13:50 | INITIAL_ITS ---
Date of service: 01/29/25 Time of Service: 13:50 Care Management Initial Assmt Initial Assessment Reason for Hospitalization: Nausea and vomiting Functional Status/Living Situation Patient Presentation: Mic was lying in bed and had his eyes closed when CM met with him. He was responded to his name and was willing to engage in conversation. Mic presented to the ED with abdominal distension, pain and associated nausea and vomiting. Per report, Mic has a chronic ileostomy due to ulcerative colitis. Today, he reports feeling a little gassy and crampy. Mic resides in [place] with his and 22-year-old daughter, who both provide strong support. He reports having no other close social connections as most of his friends have and he is not currently engaged with any community support services. At baseline, Mic is independent, including with driving. He shared that he enjoys staying active, particularly through gardening. He me ntioned undergoing an outpatient MRI yesterday and is hopeful that someone will review the results with him soon. Mic reports ongoing nausea and lack of appetite over the past few months, stating he often has to make himself eat, as he does not feel hungry or thirsty. CM will continue to follow. Town of Residence: [place] Resides with: Child and Spouse Significant Other/Family: Local Natural Supports: Family Employment Status: Disabled (Mic states he is disable and collects SSI ) Instrumental Activities of Daily Living (ADLs): Independent (Mic states he is independent with his ADL's) Medications Medication Management: No Issues/Barriers identified Advance Directives Advance Directives: Do you have an Advance Directive: N , 22:33 AD On File at [facility]: N 08/10/12, 20:31 Date Asked 01/28/25 01/28/25, 13:33 AD Date Reviewed COLST On File at [facility] COLST Date Scanned Code Status Resuscitation Status Full Code Portal Pt does not currently have a portal and education provided: Yes Insurance Coverage/Financial Issues Insurance: BC/BS [place] [facility] Advantage - [id number] FINANCIAL ASST [id number] Care Team Visit Care Team Role Provider Type Rosaline Pedraza APRN MD [facility] STAFF PHYSICIAN Lisa Mayorga MD Primary Care Provider [facility] STAFF PHYSICIAN Ayden Bates MD Emergency Provider [facility] STAFF PHYSICIAN Johnathon Mcpherson Admit Provider [facility] STAFF PHYSICIAN Attending Provider Discharge Potential Discharge Needs: PCP F/U Appt Anticipated Barriers to Discharge: Medical Status Patient/Family Education Needs: Review discharge instructions, discuss Ask Me Three Transportation: Private vehicle Plan: Anticipate Mic will be discharged home once medically ready with no new services. It is recommended that he follow up with his community providers and plan of care. he will transport via private vehicle by his . CM will continue to follow. Social Determinants of Health Screening Social Determinants of health last assessed in clinic: 01/29/25 Will the Patient Participate in the Screening?: Yes Do you worry about having a steady place to live?: no Problems where you live: no known problems In the past 12 months, have you had to go without electric, gas, oil or water in your home?: no 1. Within the past 12 months, we worried whether our food would run out before we got money to buy more.: Never true 2. Within the past 12 months, the food we bought just didn't last and we didn't have money to get more.: Never true Has lack of transportation kept you from medical appointments or from doing things needed for daily living?: no Has anyone in your life made you feel unsafe or unsupported?: no How hard is it for you to pay for the very basics like food, housing, medical care, and heating? Would you say it is:: Not hard at all Do you want help finding or keeping work or a job?: I do not need or want help If for any reason you need help with day-to-day activities such as bathing, preparing meals, shopping, managing finances, etc., do you get the help you need?: I don?t need any help How often do you feel lonely or isolated from those around you?: Never Do you speak a language other than Indian at home?: No Does the patient want assistance with any of the above?: No PFSH All Active Problems (Updated 01/28/25 @ 17:11 by Yamileth Gaines NP) Nausea (Acute) Acute dehydration (Acute) Arm pain, left (Acute) Ileus (Acute) Ileostomy stenosis (Acute) Bilateral groin pain (Acute) Acute low back pain (Acute) Inguinal pain (Acute) Incomplete emptying of bladder (Acute) Tachycardia (Acute) History of atrial fibrillation (Acute) has had ablation Proctitis (Acute) disuse/diversion proctitis Hx of ulcerative colitis (Acute) Bilateral inguinal hernia (Acute) Laceration of finger of left hand (Acute) Laceration volar fingertip left middle finger Date of injury: 04/26/18 Fracture of distal phalanx of finger of left hand (Acute) Asymptomatic fracture of the distal phalanx of the left ring finger Date of injury: 04/26/[address] (Acute) Psoriasis (Chronic) Depression with anxiety (Acute) Hypertension (Chronic) Chronic recurrent pilonidal cyst (Acute) Asthma, moderate persistent (Acute) Degenerative joint disease (DJD) of lumbar spine (Acute) Bronchitis, obstructive, chronic (Acute) Environmental allergies (Acute) Hypogonadism, male (Acute) Bilateral inguinal hernia (Acute) Medical History (Updated 01/28/25 @ 17:11 by Yamileth Gaines NP) Enteritis Former smoker Hyperlipidemia PTSD (post-traumatic stress disorder) SVT (supraventricular tachycardia) Ulcerative proctitis Surgical History H/O cardiac radiofrequency ablation History of back surgery 2 rods, 4 screws, L4-5 2006 [place] H/O total colectomy H/O hernia repair (~01/2020) [facility] around ileostomy Social History Smoking/Tobacco Use Status: Former Tobacco Use Quit Date: 06/02/06 Smoking risk assessment performed?: Yes Alcohol Intake: former Drug use: Never Substance use type: does not use Housing: house Current gender identity: male Do you feel safe in your relationship?: Yes Readmission Within the Past 30 Days Yes or No: No
[2025-01-29 16:19] VITALS: TEMP 36.7
[2025-01-29] MEDS: LORazepam 0.5 MG TAB PO (18:30)
[2025-01-29] MEDS: Metoclopramide 10 MG TAB PO (18:30)
[2025-01-29 19:51] VITALS: BP 117/88; PULSE 86; RESP 16; TEMP 36.8; O2SAT 97
[2025-01-29] MEDS: Melatonin 3 MG TAB PO (20:38)
[2025-01-30] MEDS: Lactated Ringers 1,000 ML 100 ML IV ×3 (02:38→22:21)
[2025-01-30 07:12] LABS: Abs Immature Grans 0.02 10^3/uL (0.0-0.06); HCT 43.3 % (40.0-50.0); HGB 15.0 g/dL (13.5-17.5); Immature Grans % 0.3 %; MCH 28.4 pg (27.0-33.0); MCHC 34.6 % (32.0-36.0); MCV 82 fL (80-95); MPV 9.0 fL (8.0-11.0); Platelet Count 244 10^3/uL (130-400); RBC 5.29 10^6/uL (4.36-5.78); RDW 12.5 % (11.8-14.1); RDW-SD 37.3 fL; WBC 5.85 10^3/uL (4.4-10.8)
[2025-01-30 07:53] LABS: ALT 20 U/L (16-63); AST 19 U/L (15-37); Albumin 3.4 g/dL (3.4-5.0); Alkaline Phosphatase 58 U/L (46-116); Anion Gap 8.2 mmol/L (3-11); BUN 7 mg/dL (7-18); Bilirubin, Total 1.5 mg/dL (0.2-1.0); CO2 27.8 mmol/L (21.0-32.0); Calcium 8.9 mg/dL (8.5-10.1); Chloride 103 mmol/L (98-107); Estimated GFR 100.24 (mL/min/1.73m2); Glucose 95 mg/dL (74-106); Potassium 3.8 mmol/L (3.5-5.1); Sodium 139 mmol/L (136-145); Total Protein 7.0 g/dL (6.4-8.2)
[2025-01-30] MEDS: Normal Saline Flush 10 ML SYR IVP ×2 (08:04→21:06)
[2025-01-30] MEDS: Pantoprazole 40 MG VIAL IVP (08:04)
[2025-01-30] MEDS: Simethicone 80 MG CHEW PO ×4 (08:05→21:05)
[2025-01-30] MEDS: dilTIAZem CD 120 MG CAPCR PO (08:05)
[2025-01-30] MEDS: Metoclopramide 10 MG TAB PO (08:05)
[2025-01-30] MEDS: Potassium Chloride 20 MEQ TABCR PO (08:05)
[2025-01-30 08:24] VITALS: BP 149/90; PULSE 72; RESP 17; TEMP 36.6; O2SAT 96
--- NOTE | 2025-01-30 09:55 | PGE_ITS ---
Date of Service Date of service: 01/30/25 Time of Service: 09:55 Assessment and Plan Assessment and plan (1) Nausea: Status: Acute Assessment and plan: Observation status after coming to the ED [place] [facility] Ongoing symptom management w ondansetron - as reglan was discontinue re: reported as causing jitters total bili trending down today-1.5- 1.8 no acute findings on CT scan of abd/pelvis ABD [place] [facility] report: 5 cm long segment of SB 6cm proximal to ostomy that appeared thickened -Surgical consult: Previously referred patient to [facility] for ostomy revision by Dr. Alejandro Zhong, as per MRI report - again confirmed. recommending soft diet and protein supplementation. Patient conselled to consolidate care, has visited [email or web address] and [facility] recently -[facility] [place] consult with Dr. Anderson with recommendation for CRP level and colorectal [facility] consultation -From Dr. Zhong's notes - it is reported that plans for ileoscopy were ongoing -[facility] colorectal surgical consult with Dr. Zhong - recommendation to d/c when full liquid tolerated and f/u outpatient Continue simethicone after meals Now on oral reglan AC &HS as clinically worsened in PM yesterday Continue low dose PRN lorazepam for agitation Advance diet to full liquid (2) History of atrial fibrillation: Status: Acute Assessment and plan: Ongoing home dose diltiazem (3) Hypertension: Status: Chronic Assessment and plan: VSS on home diltiazem regimen , adjust if needed. (4) Asthma, moderate persistent: Status: Acute Assessment and plan: No exacerbation Continue home inhaler as directed and PRN albuterol discussed with Dr. Norton Subjective Subjective Patient reports: no new complaints, feels better, pain is less, tolerating liquids well, voiding w/o difficulty, bowel movement and nausea; denies diarrhea, vomiting, shortness of breath or fever Exam Narrative Exam Narrative: 55 yo male patient lookinof stated age, alert and oriented time 4, no focal neurological deficit, unlabored breathing, clear lungs, Abdomen is mildly distended, soft, non-tender but presusre - negative Hassan's, + output from stoma, no CVA tenderness Objective Last Vital Signs Temp 36.6 C 01/30/25 08:24 Pulse 72 01/30/25 08:24 Resp 17 01/30/25 08:24 BP 149/90 H 01/30/25 08:24 Pulse Ox 96 01/30/25 08:24 Laboratory Results - last 24 hr 01/30/25 06:40 WBC 5.85 RBC 5.29 Hgb 15.0 Hct 43.3 MCV 82 MCH 28.4 MCHC 34.6 RDW 12.5 Plt Count 244 MPV 9.0 Immature Gran % 0.3 Neutrophils % 61.4 Lymphocytes % 23.4 Monocytes % 11.6 Eosinophils % 2.6 Basophils % 0.7 Nucleated RBC % 0.0 Absolute Neutrophils 3.59 Absolute Lymphocytes 1.37 Absolute Monocytes 0.68 Absolute Eosinophils 0.15 Absolute Basophils 0.04 Sodium 139 Potassium 3.8 Chloride 103 Carbon Dioxide 27.8 Anion Gap 8.2 BUN 7 Creatinine 0.9 Est GFR (CKD-EPI 2020) 100.24 Glucose 95 Calcium 8.9 Total Bilirubin 1.5 H AST 19 ALT 20 Alkaline Phosphatase 58 Total Protein 7.0 Albumin 3.4 Time Spent with Patient Time Spent with Patient: >50 minutes Time was spent: preparing to see the patient(eg.review tests), obtaining and/or reviewing separately otained hiistory, ordering medications,tests, procedures, referring, communicating with other health daycare provider, indepentently interpreting results, counseling the patient, care coordination and other
[2025-01-30] MEDS: Budesonide/Formoterol 160/4.5 6 GM 60 PUFF INH IH ×2 (11:15→20:28)
[2025-01-30] MEDS: Enoxaparin 40 MG/0.4 ML SYR SC (11:44)
[2025-01-30 13:31] LABS: Lab Add On Test DONE
[2025-01-30] MEDS: Protein Nutritional Supplement 16 GM 1 OUNCE PACKET PO ×2 (13:40→21:04)
[2025-01-30 13:42] LABS: C-Reactive Protein < 0.50 mg/dL (<or=0.5)
[2025-01-30 19:36] VITALS: BP 134/91; PULSE 84; RESP 16; TEMP 36.4; O2SAT 95
[2025-01-30] MEDS: Melatonin 3 MG TAB PO (21:05)
[2025-01-31 07:40] VITALS: BP 145/93; PULSE 72; RESP 17; TEMP 36.7; O2SAT 96
[2025-01-31] MEDS: Budesonide/Formoterol 160/4.5 6 GM 60 PUFF INH IH (07:58)
[2025-01-31] MEDS: Protein Nutritional Supplement 16 GM 1 OUNCE PACKET PO (08:26)
[2025-01-31] MEDS: Normal Saline Flush 10 ML SYR IVP (08:26)
[2025-01-31] MEDS: Potassium Chloride 20 MEQ TABCR PO (08:26)
[2025-01-31] MEDS: dilTIAZem CD 120 MG CAPCR PO (08:26)
[2025-01-31] MEDS: Simethicone 80 MG CHEW PO (08:26)
[2025-01-31] MEDS: Pantoprazole 40 MG VIAL IVP (08:26)
[2025-01-31] MEDS: Enoxaparin 40 MG/0.4 ML SYR SC (08:27)
--- NOTE | 2025-01-31 09:30 | W.PM.PROGNOT ---
Date of Service Date of service: 01/31/25 Time of Service: 09:30 Assessment and Plan Assessment and plan (1) Nausea: Status: Acute Assessment and plan: Observation status after coming to the ED s/p MRI at [facility] [place] on 01/28- Ongoing symptom management w ondansetron - as reglan was discontinue re: reported as causing jitters total bili trending down today-1.5- 1.8 no acute findings on CT scan of abd/pelvis ABD MRI at [facility] report: 5 cm long segment of SB 6cm proximal to ostomy that appeared thickened -Surgical consult: Previously referred patient to [facility] for ostomy revision by Dr. Alejandro Zhong, as per MRI report - again confirmed. recommending soft diet and protein supplementation. Patient conselled to consolidate care, has visited [facility], [facility] and [place] recently -[facility] GI consult with Dr. Anderson with recommendation for CRP level and colorectal [facility] consultation -From Dr. Zhong's notes - it is reported that plans for ileoscopy were ongoing -[facility] colorectal surgical consult with Dr. Zhong - recommendation to d/c when full liquid tolerated and f/u outpatient Continue simethicone after meals Now on oral reglan AC &HS as clinically worsened in PM yesterday Continue low dose PRN lorazepam for agitation Advance diet to full liquid (2) History of atrial fibrillation: Status: Acute Assessment and plan: Ongoing home dose diltiazem (3) Hypertension: Status: Chronic Assessment and plan: VSS on home diltiazem regimen , adjust if needed. (4) Asthma, moderate persistent: Status: Acute Assessment and plan: No exacerbation Continue home inhaler as directed and PRN albuterol discussed with Dr. Norton Subjective Subjective Patient reports: no new complaints, feels better, pain is less, tolerating liquids well, voiding w/o difficulty, bowel movement and nausea; denies diarrhea, vomiting, shortness of breath or fever Exam Narrative Exam Narrative: 55 yo male patient lookinof stated age, alert and oriented time 4, no focal neurological deficit, unlabored breathing, clear lungs, Abdomen is mildly distended, soft, non-tender but presusre - negative Hassan's, + output from stoma, no CVA tenderness Objective Last Vital Signs Temp 36.7 C 01/31/25 07:40 Pulse 72 01/31/25 07:40 Resp 17 01/31/25 07:40 BP 145/93 H 01/31/25 07:40 Pulse Ox 96 01/31/25 07:40 Laboratory Results - last 24 hr 01/30/25 01/30/25 06:40 Unknown C-Reactive Protein < 0.50 Add-On Test Request DONE
[2025-01-31 10:36] LABS: ALT 19 U/L (16-63); AST 16 U/L (15-37); Albumin 3.7 g/dL (3.4-5.0); Alkaline Phosphatase 58 U/L (46-116); Anion Gap 8.5 mmol/L (3-11); BUN 8 mg/dL (7-18); Bilirubin, Total 1.5 mg/dL (0.2-1.0); CO2 27.5 mmol/L (21.0-32.0); Calcium 9.2 mg/dL (8.5-10.1); Chloride 102 mmol/L (98-107); Estimated GFR 88.33 (mL/min/1.73m2); Glucose 115 mg/dL (74-106); Potassium 3.9 mmol/L (3.5-5.1); Sodium 138 mmol/L (136-145); Total Protein 7.2 g/dL (6.4-8.2)
--- NOTE | 2025-01-31 11:00 | DSE_ITS ---
Date of service: 01/31/25 Time of Service: 11:00 DS: Diagnosis Discharge Diagnosis (1) Nausea: Status: Acute (2) History of atrial fibrillation: Status: Acute (3) Hypertension: Status: Chronic (4) Asthma, moderate persistent: Status: Acute Discharge Plan Disposition Patient Disposition: Home Condition: Improving Discharge Details Reason For Visit: nausea and vomiting Admit Date/Time: 01/28/25 16:18 Admit Provider: Johnathon Mcpherson Attending Provider: Johnathon Mcpherson Primary Care Provider: Lisa Mayorga V Hospital Course Hospital Course: This 55 years old male patient with a complex past medical history, including but not limited to ulcerative colitis, s/p ileostomy, atrial fibrillation not anticoagulated presented to the ED on 01/28/25 with c/o abdominal distention, nausea and pain. Abdominal MRI at [facility] on 01/27/25 with not results available yet, experiencing intractable symptoms. Work up in the ED showed normal labs except for bilirubin at 1.[address] with no evidence of obstruction or acute abdominal or pelvic process. The patient a received zofran with little improvement in his symptoms, and subsequently received reglan but was unable to tolerate enteral intake and was admitted to the medical surgical floor by hospitalist team for observation and symptom management while awaiting abdominal MRI report. The patient continued to receive IVF and antiemetic drugs, PRN ativan added for jitters with metoclopramide, ileostomy with ongoing output. MRI reported showed no obstruction but 5 cm segment long of small bowel 6cm proximal to the stoma with mildly tickened appearance and persistent narrowing on all sequences. [facility] GI Dr. Coughlin recommended CRP wihich was negative and colorectal surgical consult. Colorectal [facility] Dr. Zhong recommended to advance patient to full liquid and follow -up with outpatient colorectal at [facility]. Dr. Zhong also mentioned that a note related an ileoscopy completed this summer w/o obstruction or strictures; this correlate the patient's account from been transferred to [facility] about 3 weeks ago for NSTEMI and undergoing an ileoscopy also at the time. Patient was seen on 11/02/[address] Dylan Zhong from [facility] colorectal and n naomie mentioned follow-up in a month; patient advised to call to clarify the date of the follow-up. The patient is hemodynamically stable, tolerating enteral intake , total bilirubin trending down. Patient to advance diet as tolerated at home and to follow-up with PCP within 7 days of discharge. Please as advised by multiple provider, it would be optimal to consolidated your care. Discussed with Dr. Norton Recommendations for Follow Up Recommended tests to be ordered by follow up provider: Outpatient follow-up w [facility] colorectal recommended by [facility] colorectal consultation Home Meds and New Rx's Prescriptions: New simethicone 80 mg Tablet,Chewable 80 mg PO PC & HS Qty: 120 0RF lorazepam 0.5 mg Tablet 0.5 mg PO QID PRN PRNQty: 20 0RF metoclopramide HCl 10 mg Tablet 10 mg PO TID PRNQty: 15 0RF Continued potassium chloride 20 mEq tablet extended release 20 meq PO DAILY magnesium citrate 100 mg capsule 100 mg PO BID Qty: 10 0RF magnesium carb,citrate,oxide 300 mg magnesium tablet 300 mg PO DAILY vitamin B complex Capsule 1 cap PO DAILY omega 6-phn-qit-fish oil [Fish Oil] 300-1,000 mg capsule 1 cap PO DAILY cholecalciferol (vitamin D3) 25 mcg (1,000 unit) capsule 25 mcg PO DAILY CBD oil 16 mg drops See Rx Instructions PO/SL 1XD Rx Instructions: 16 Drops Orally or Sublingually 1 time daily; albuterol sulfate 90 mcg/actuation HFA aerosol inhaler 2 inh INHALATION TID Patient Comments: INHALE 2 PUFFS BY MOUTH EVERY 4 HOURS NEEDED zinc sulfate 66 mg tablet 66 mg PO DAILY fluticasone propion-salmeterol 250-50 mcg/dose blister with device 1 inh INHALATION BID Patient Comments: INHALE 1 DOSE BY MOUTH TWICE DAILY diltiazem HCl 120 mg capsule,extended release 24hr 120 mg PO DAILY Patient Comments: TAKE 1 CAPSULE BY MOUTH ONCE DAILY pantoprazole 40 mg tablet,delayed release (DR/EC) 40 mg PO DAILY Patient Comments: TAKE 1 TABLET BY MOUTH ONCE DAILY Discontinued ondansetron 4 mg tablet,disintegrating 4 mg PO Q8H PRN (Reason: nausea & vomiting) Qty: 30 0RF Discharge Instructions Referrals: Lisa Mayorga MD [Primary Care Provider, Medicine] Referral Note: Follow-up within 7 days of discharge with your PCP please Activity:: Activity as Tolerated Equipment/Supplies:: No Equipment Needed Diet:: As Tolerated DS: Summary Time Spent with Patient providing and/or coordinating discharge services: Greater than 30 minutes Status at Discharge Functional status at discharge: independent ambulation Overall status at discharge: patient is progressing back to baseline Mental Status: mental status grossly normal Speech and Movement: speech and movement normal Mood: congruent mood Affect: normal affect Exam Narrative Exam Narrative: 55 yo male patient in no acute distress, alert and oriented time 4, no focal neurological deficit, unlabored breathing, clear lungs, Abdomen is non- distended, soft, non-tender - negative Hassan's, + output from ileostomy, no CVA tenderness Psych Mental Status: mental status grossly normal Speech and Movement: speech and movement normal Mood: congruent mood Affect: normal affect DS: Data Vitals/I&O Vitals and I&O: Vital Signs Temperature 36.7 C 01/31/25 07:40 Temperature Source Temporal Artery Scan 01/31/25 07:40 Pulse 72 01/31/25 07:40 Pulse Rhythm Regular 01/28/25 17:36 Pulse 99 H 01/28/25 16:31 Respiratory Rate 17 01/31/25 07:40 Respiratory Effort Normal 01/28/25 17:36 Respiratory Depth Normal 01/28/25 17:36 Respiratory Pattern Normal 01/28/25 17:36 Blood Pressure 145/93 H 01/31/25 07:40 Blood Pressure Mean 110 01/31/25 07:40 Blood Pressure Position Sitting 01/28/25 13:26 Pulse Oximetry 96 01/31/25 07:40 Oxygen Delivery Method Room Air 01/31/25 07:40 Oxygen Flow Rate 0 01/31/25 07:40 Pain Level 0 01/31/25 07:40 Intake & Output 01/30/25 01/30/25 01/31/25 11:59 23:59 11:59 Intake Total 1500 / 3968.333 2468.333 / 3968.333 1012 / 1012 Output Total 1600 / 2800 1200 / 2800 2750 / 2750 Balance -100 / 8966.269 8311.333 / 1168.333 -1738 / -1738 Intake: IV 1000 / 2868.333 1868.333 / 2868.333 1000 / 1000 Oral 500 / 1100 600 / 1100 12 / 12 Output: Urine 1300 / 2200 900 / 2200 2400 / 2400 Stool 300 / 600 300 / 600 350 / 350 Other: Urine Color Yellow Yellow Yellow Urine Appearance Clear Clear Clear Urine Odor Normal Normal Stool Size Moderate Stool Characteristics Soft Liquid Liquid Green Green Brown Data Completed and Pending Labs on day of discharge: Labs from last 24 hours 01/31/25 01/30/25 01/30/25 10:15 Unknown 06:40 Sodium 138 Potassium 3.9 Chloride 102 Carbon Dioxide 27.5 Anion Gap 8.5 BUN 8 Creatinine 1.0 Est GFR (CKD-EPI 2020) 88.33 Glucose 115 H Calcium 9.2 Total Bilirubin 1.5 H AST 16 ALT 19 Alkaline Phosphatase 58 C-Reactive Protein < 0.50 Total Protein 7.2 Albumin 3.7 Add-On Test Request DONE [facility] All Active Problems (Updated 01/28/25 @ 17:11 by Yamileth Gaines NP) Nausea (Acute) Acute dehydration (Acute) Arm pain, left (Acute) Ileus (Acute) Ileostomy stenosis (Acute) Bilateral groin pain (Acute) Acute low back pain (Acute) Inguinal pain (Acute) Incomplete emptying of bladder (Acute) Tachycardia (Acute) History of atrial fibrillation (Acute) has had ablation Proctitis (Acute) disuse/diversion proctitis Hx of ulcerative colitis (Acute) Bilateral inguinal hernia (Acute) Laceration of finger of left hand (Acute) Laceration volar fingertip left middle finger Date of injury: 04/26/18 Fracture of distal phalanx of finger of left hand (Acute) Asymptomatic fracture of the distal phalanx of the left ring finger Date of injury: 04/26/[address] (Acute) Psoriasis (Chronic) Depression with anxiety (Acute) Hypertension (Chronic) Chronic recurrent pilonidal cyst (Acute) Asthma, moderate persistent (Acute) Degenerative joint disease (DJD) of lumbar spine (Acute) Bronchitis, obstructive, chronic (Acute) Environmental allergies (Acute) Hypogonadism, male (Acute) Bilateral inguinal hernia (Acute) Medical History (Updated 01/28/25 @ 17:11 by Yamileth Gaines NP) Enteritis Former smoker Hyperlipidemia PTSD (post-traumatic stress disorder) SVT (supraventricular tachycardia) Ulcerative proctitis Surgical History H/O cardiac radiofrequency ablation History of back surgery 2 rods, 4 screws, L4-5 2006 [place], [place] H/O total colectomy H/O hernia repair (~01/2020) [facility] around ileostomy Social History Smoking/Tobacco Use Status: Former Tobacco Use Quit Date: 06/02/06 Smoking risk assessment performed?: Yes Alcohol Intake: former Drug use: Never Substance use type: does not use Housing: house Current gender identity: male Do you feel safe in your relationship?: Yes Time Spent with Patient Time Spent with Patient: >85 minutes Time was spent: preparing to see the patient(eg.review tests), obtaining and/or reviewing separately otained hiistory, ordering medications,tests, procedures, referring, communicating with other health field care manager, indepentently interpreting results, counseling the patient, care coordination and other
== END 2025-01-31 12:51 | disposition home or self-care (01) ==
LOC: ER 16:25 → MS 16:54
PROVIDERS: Nurse Practitioner Acute Care; Admitting Provider Family Medicine; Emergency Provider Student in an Organized Health Care Education/Training Program; PCP Family Medicine; Responsible Provider Nurse Practitioner Acute Care; Visit Provider Family Medicine
DX: R11.0 Nausea (principal); E86.0 Dehydration; R14.0 Abdominal distension (gaseous); R93.3 Abnormal findings on diagnostic imaging of other parts of digestive tract; I10 Essential (primary) hypertension; J45.40 Moderate persistent asthma, uncomplicated; I48.91 Unspecified atrial fibrillation; K51.90 Ulcerative colitis, unspecified, without complications; R10.9 Unspecified abdominal pain; R33.9 Retention of urine, unspecified; K62.89 Other specified diseases of anus and rectum; L40.9 Psoriasis, unspecified; F41.8 Other specified anxiety disorders; M47.816 Spondylosis without myelopathy or radiculopathy, lumbar region; E78.5 Hyperlipidemia, unspecified; Z87.891 Personal history of nicotine dependence; F43.10 Post-traumatic stress disorder, unspecified; I47.10 Supraventricular tachycardia, unspecified; Z90.49 Acquired absence of other specified parts of digestive tract; Z79.899 Other long term (current) drug therapy; I21.4 Non-ST elevation (NSTEMI) myocardial infarction
CPT/HCPCS: 00123; 36415; 80053; 83690; 93005; 94640; 96365; 96367; 96372; 96375; 96376; 99285; J1650; 74177; 83735; 84484; 85025; 86140; 93010; 94664; 99222; 99233; 99239; G0378; J0131; J2405; J2470; J2765